=== PATIENT | female | born 2000 | race Hispanic/Latino ===

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

== ENCOUNTER 2021-01-19 15:23 | Emergency (ER) | payer OTHER ==
--- OUTSIDE RECORDS SUMMARY | 2021-01-19 15:28 | XMS REPORT | Continuity of Care Document ---
:2000 Author Organization [facility] t Address [address] [place] [address] Dr. Lua [address] [place] [id number] Care Team Providers Name Role Phone Unavailable Unavailable Unavailable Problems This patient has no known problems. Allergies, Adverse Reactions, Alerts This patient has no known allergies or adverse reactions. Medications This patient has no known medications. Procedures This patient has no known procedures. Results This patient has no known results.
[2021-01-19 18:28] LABS: Absolute Lymphocytes (CBC) 3.2 K/uL (0.7-4.9); Basophils % 0.4 % (0-1.3); Hematocrit 43.2 % (36.0-45.0); Lymphocytes % 37.6 % (15.3-44.8); MPV 7.4 fL (7.6-11.3); RBC Red Blood Cell Count 4.99 M/uL (3.86-4.86)
[2021-01-19 18:36] LABS: ALT/SGPT 31 U/L (12-78); AST/SGOT 18 U/L (15-37); Albumin 4.4 g/dL (3.4-5.0); Alkaline Phosphatase 92 U/L (45-117); BUN Blood Urea Nitrogen 11 mg/dL (7-18); Bicarbonate 28 mmol/L (21-32); Bilirubin Direct 0.1 mg/dL (0-0.2); Bilirubin Total 0.6 mg/dL (0.2-1.0); Glucose Level 79 mg/dL (74-106); Lipase 56 U/L (73-393); Potassium 3.2 mmol/L (3.5-5.1); Protein, Total 8.4 g/dL (6.4-8.2); Sodium Level 140 mmol/L (136-145)
[2021-01-19] MEDS ORDERED: ONDANSETRON 4 MG/2 ML VIAL ONE (19:20)
[2021-01-19] MEDS ORDERED: MORPHINE 4 MG/ML SYR ONE (19:20)
[2021-01-19 19:25] LABS: Urine Blood Trace-lysed (Negative); Urine Glucose Negative (Negative); Urine Protein Negative (Negative); Urine Specific Gravity 1.025 (1.005-1.030); Urine pH 6.5 (5.0-7.0)
--- NOTE | 2021-01-19 20:00 | RAD REPORT ---
EXAM DESCRIPTION: CT - Abdomen Pelvis W Contrast - 01/19/2021 7:52 pm CLINICAL HISTORY: right lower abdominal pain COMPARISON: Abdomen Pelvis W Contrast dated 06/26/2018 TECHNIQUE: Biphasic, helical CT imaging of the abdomen and pelvis was performed following 100 ml non -ionic IV contrast. No oral contrast administered. All CT scans are performed using dose optimization technique as appropriate and may include automated exposure control or mA/KV adjustment according to patient size. FINDINGS: No suspicious findings in the lung bases. The liver, spleen, and pancreas show no suspicious findings. Gallbladder and biliary tree are also wi thout suspicious finding. Symmetric renal function is seen with no hydronephrosis or suspicious renal mass. No pyelonephritis o r acute parenchymal process. No bladder abnormalities. No adrenal abnormalities. Normal size uterus i s present. IUD is well positioned in the fundus. Small ovarian cysts are present. No cyst rupture or hemorrhage findings. No adnexal abnormality suspected. No dilated bowel loops or bowel wall thickening. No evidence for appendicitis. No free air, free flui d or inflammatory stranding. No hernia, mass or bulky lymphadenopathy. Again noted is the multiple m esenteric lymph node pattern. This could be residual or recurrent when comparing with 2018. No suspicious bony findings. IMPRESSION: No appendicitis or other surgically emergent finding. No acute GI, or INSULATION [employer]ARD [employer] OPERATOR process id entifiable. Patient is again noted to have multiple small mesenteric lymph nodes. These could be residual or recu rrent when comparing with 2018.
--- NOTE | 2021-01-19 20:34 | ER ---
Nurse's Notes [facility] Name: Marie Gann Age: 20 yrs Sex: Female : 2000 Arrival Date: 01/19/2021 Time: 15:29 Bed 24 Private MD: Diagnosis: Right Flank Pain;UTI;Mesenteric Adenitis Presentation: 01/19 16:23 Chief complaint: Patient states: "I have been having really bad stomach pain that comes jd3 around the back. last time I had a smiler pain they said I have ovarian cyst, but this is way worse.". Coronavirus screen: At this time, the client does not indicate any symptoms associated with coronavirus-19. Ebola Screen: Patient negative for fever greater than or equal to 101.5 degrees Fahrenheit, and additional compatible Ebola Virus Disease symptoms. Initial Sepsis Screen: Does the patient meet any 2 criteria? No. Patient's initial sepsis screen is negative. Does the patient have a suspected source of infection? No. Patient's initial sepsis screen is negative. Risk Assessment: Do you want to hurt yourself or someone else? Patient reports no desire to harm self or others. Onset of symptoms was January 17, 2021. 16:23 Method Of Arrival: Ambulatory jd3 16:23 Acuity: AD 3 jd3 SENIOR BIOINFORMATICS SPECIALIST: 16:25 LMP N/A - control method jd3 Historical: - Allergies: 16:25 No Known Allergies; jd3 - Home Meds: 16:25 None [Active]; jd3 - PMHx: 16:25 Ovarian cyst; seasonal allergies; jd3 - PSHx: 16:25 None; jd3 - Immunization history:: Adult Immunizations up to date. - Social history:: Smoking status: Reported history of juuling and/or vaping. Screenin:50 Abuse screen: Denies threats or abuse. Denies injuries from another. Nutritional ld1 screening: No deficits noted. Tuberculosis screening: No symptoms or risk factors identified. Fall Risk None identified. Assessment: 17:50 General: Appears in no apparent distress. comfortable, Behavior is calm, cooperative, ld1 appropriate for age. 17:50 Pain: Complains of pain in posterior aspect of right lateral abdomen, anterior aspect ld1 of right lateral abdomen and right lower quadrant Pain does not radiate. Pain currently is 6 out of 10 on a pain scale. Quality of pain is described as stabbing, throbbing, Pain began 2-3 days ago. Is continuous. Neuro: Level of Consciousness is awake, alert, obeys commands, Oriented to person, place, time, situation, Appropriate for age. Cardiovascular: Capillary refill < 3 seconds Patient's skin is warm and dry. Respiratory: Airway is patent Respiratory effort is even, unlabored, Respiratory pattern is regular, symmetrical. GI: Abdomen is flat, non-distended. : Urine is clear, Reports pain in right flank(s). EENT: No signs and/or symptoms were reported regarding the EENT system. Derm: No signs and/or symptoms reported regarding the dermatologic system. Musculoskeletal: No signs and/or symptoms reported regarding the musculoskeletal system. 18:50 Reassessment: Patient appears in no apparent distress at this time. No changes from ld1 previously documented assessment. Patient is alert, oriented x 3, equal unlabored respirations, skin warm/dry/pink. 19:46 Reassessment: Patient appears in no apparent distress at this time. Patient is alert, ld1 oriented x 3, equal unlabored respirations, skin warm/dry/pink. Patient denies pain at this time. 20:59 Reassessment: Patient appears in no apparent distress at this time. No changes from ld1 previously documented assessment. Patient and/or family updated on plan of care and expected duration. Pain level reassessed. Vital Signs: 16:25 BP 113 / 87; Pulse 68; Resp 17 S; Temp 98.0(TE); Pulse Ox 99% on R/A; Weight 56.7 kg j (R); Height 5 ft. 4 in. (162.56 cm) (R); Pain 10/10; 17:50 BP 118 / 82; Pulse 70; Resp 18; Pulse Ox 100% on R/A; ld1 18:50 BP 126 / 84; Pulse 72; Resp 18; Pulse Ox 100% ; ld1 19:46 BP 124 / 80; Pulse 76; Resp 18; Pulse Ox 100% ; ld1 20:59 BP 128 / 72; Pulse 74; Resp 18; Pulse Ox 100% ; ld1 16:25 Body Mass Index 21.46 (56.70 kg, 162.56 cm) [facility] ED Course: 15:29 Patient arrived in ED. 16:25 Triage completed. jd3 16:26 Arm band placed on. jd3 17:47 Renetta Olson, RN is Primary Nurse. ld1 17:47 Constantine Brown PA is PHCP. elvis 17:47 Parul Raygoza MD is Attending Physician. [facility] 17:50 Patient has correct armband on for positive identification. Bed in low position. Call ld1 light in reach. Side rails up X2. Pulse ox on. NIBP on. Door closed. Noise minimized. Warm blanket given. 17:50 No provider procedures requiring assistance completed. Inserted saline lock: 20 gauge ld1 in right antecubital area, using aseptic technique. Blood collected. 19:53 CT Abd/Pelvis - IV Contrast Only In Process Unspecified. EDMS 21:00 IV discontinued, intact, bleeding controlled, No redness/swelling at site. ld1 Administered Medications: 19:01 Drug: morphine 4 mg Route: IVP; Site: left antecubital; ld1 19:01 Follow up: Response: No adverse reaction ld1 19:01 Drug: Zofran (Ondansetron) 4 mg Route: IVP; Site: left antecubital; ld1 19:01 Follow up: Response: No adverse reaction ld1 20:51 Drug: Ketorolac 30 mg Route: IVP; Site: right antecubital; ld1 Outcome: 20:33 Discharge ordered by . [facility] 20:59 Discharged to home ambulatory. ld1 20:59 Condition: stable 20:59 Discharge instructions given to patient, Instructed on discharge instructions, follow up and referral plans. medication usage, Demonstrated understanding of instructions, follow-up care, medications. 21:00 Patient left the ED. ld1 Signatures: Dispatcher [employer] EDMS Constantine Brown PA PA jmm Davies, Jonathon, RN RN jRenetta Chang, RANDOLPH RN ld1 Vera Jackson Corrections: (The following items were deleted from the chart) 16:26 16:25 LMP 12/01/2020 jd3 [email or web address]
--- NOTE | 2021-01-19 20:34 | EDPHYS ---
Physician Documentation [facility] Name: Marie Gann Age: 20 yrs Sex: Female : 2000 Arrival Date: 01/19/2021 Time: 15:29 Bed 24 Private MD: ED Physician Parul Raygoza HPI: 01/19 17:48 This 20 yrs old Female presents to ER via Ambulatory with complaints of Back jmm Pain - RIGHT SIDE RADIATING TO THE FRONT. 17:48 The patient presents with pain that is acute. Onset: The symptoms/episode jmm began/occurred today. The pain radiates to the abdomen. Associated signs and symptoms: Pertinent negatives: fever, vomiting. This is a 20 year old female with no chronic medical conditions that presents to the ED with complaints of right flank pain beginning earlier today. Denies fever, vomiting, diarrhea. . 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 - Social history:: Smoking status: Reported history of juuling and/or vaping. ROS: 17:48 Constitutional: Negative for fever, chills, and weight loss, Cardiovascular: Negative jmm for chest pain, palpitations, and edema, Respiratory: Negative for shortness of breath, cough, wheezing, and pleuritic chest pain. 17:48 Abdomen/GI: Positive for abdominal pain. 17:48 All other systems are negative. Exam: 17:48 Constitutional: This is a well developed, well nourished patient who is awake, alert, jmm and in no acute distress. Head/Face: atraumatic. Eyes: EOMI, no conjunctival erythema appreciated ENT: Moist Mucus Membranes Neck: Trachea midline, Supple Chest/axilla: Normal chest wall appearance and motion. Cardiovascular: Regular rate and rhythm. No edema appreciated Respiratory: Normal respirations, no respiratory distress appreciated 17:48 ENT: Moist Mucus Membranes Skin: General appearance color normal MS/ Extremity: Moves all extremities, no obvious deformities appreciated, no edema noted to the lower extremities Neuro: Awake and alert, normal gait Psych: Behavior is normal, Mood is normal, Patient is cooperative and pleasant 17:48 Abdomen/GI: Inspection: abdomen appears normal, Bowel sounds: normal, Palpation: soft, mild abdominal tenderness, in the right lower quadrant. Vital Signs: 16:25 BP 113 / 87; Pulse 68; Resp 17 S; Temp 98.0(TE); Pulse Ox 99% on R/A; Weight 56.7 kg jd3 (R); Height 5 ft. 4 in. (162.56 cm) (R); Pain 10/10; 17:50 BP 118 / 82; Pulse 70; Resp 18; Pulse Ox 100% on R/A; ld1 18:50 BP 126 / 84; Pulse 72; Resp 18; Pulse Ox 100% ; ld1 19:46 BP 124 / 80; Pulse 76; Resp 18; Pulse Ox 100% ; ld1 20:59 BP 128 / 72; Pulse 74; Resp 18; Pulse Ox 100% ; ld1 16:25 Body Mass Index 21.46 (56.70 kg, 162.56 cm) jd3 MDM: 18:[address] [facility] 20:31 Data reviewed: vital signs, nurses notes. Counseling: I had a detailed discussion with elvis the patient and/or guardian regarding: the historical points, exam findings, and any diagnostic results supporting the discharge/admit diagnosis, lab results, radiology results, the need for outpatient follow up, to return to the emergency department if symptoms worsen or persist or if there are any questions or concerns that arise at home. ED course: Patient is alert and non toxic in appearance in the ED. No signs of sepsis. CT negative. Advised to follow up with pcp and otherwise given strict return precautions. Patient understood and agrees with the plan of care. . 01/19 17:48 Order name: Basic Metabolic Panel; Complete Time: 18:49 [facility] 01/19 17:48 Order name: CBC with Diff; Complete Time: 18:49 [facility] 01/19 17:48 Order name: Hepatic Function; Complete Time: 18:49 [facility] 01/19 17:48 Order name: Lipase; Complete Time: 18:49 [facility] 01/19 19:24 Order name: Urine Dipstick-Ancillary; Complete Time: 19:33 [facility] 01/19 19:26 Order name: Urine --Ancillary (enter results) tt3 01/19 17:48 Order name: IV Saline Lock; Complete Time: 18:06 [facility] 01/19 17:48 Order name: Labs collected and sent; Complete Time: 18:06 [facility] 01/19 19:07 Order name: CT Abd/Pelvis - IV Contrast Only; Complete Time: 20:11 [facility] 01/19 19:16 Order name: Urine Dipstick-Ancillary (obtain specimen); Complete Time: 19:25 ss 01/19 19:16 Order name: Urine Test (obtain specimen); Complete Time: 19:25 ss Administered Medications: 19:01 Drug: morphine 4 mg Route: IVP; Site: left antecubital; ld1 19:01 Follow up: Response: No adverse reaction ld1 19:01 Drug: Zofran (Ondansetron) 4 mg Route: IVP; Site: left antecubital; ld1 19:01 Follow up: Response: No adverse reaction ld1 20:51 Drug: Ketorolac 30 mg Route: IVP; Site: right antecubital; ld1 Disposition: 01/19/21 20:33 Discharged to Home. Impression: Right Flank Pain, UTI, Mesenteric Adenitis. - Condition is Stable. - Discharge Instructions: Flank Pain, Adult, Mesenteric Adenitis, Pediatric, Urinary Tract Infection, Adult. - Prescriptions for Cephalexin 500 mg Oral Capsule - take 1 capsule by ORAL route every 8 hours for 10 days; 30 capsule. orphenadrine citrate 100 mg Oral Tablet Sustained Release - take 1 tablet by ORAL route 2 times per day As needed; 20 tablet. - Medication Reconciliation Form, Thank You Letter, Antibiotic Education, Prescription Opioid Use, Work release form form. - Follow up: Private Physician; When: 2 - 3 days; Reason: Recheck today's complaints, Continuance of care, Re-evaluation by your physician. Signatures: Dispatcher [employer] EDMS Constantine Brown PA PA jmm Smirch, Shelby, RN RN ss Davies, Jonathon, RN RN jd3 Dibbern, Lauren, RN RN ld1 Corrections: (The following items were deleted from the chart) 21:00 20:33 01/19/2021 20:33 Discharged to Home. Impression: Right Flank Pain; UTI; ld1 Mesenteric Adenitis. Condition is Stable. Forms are Medication Reconciliation Form, Thank You Letter, Antibiotic Education, Prescription Opioid Use. Follow up: Private Physician; When: 2 - 3 days; Reason: Recheck today's complaints, Continuance of care, Re-evaluation by your physician. elvis
[2021-01-19] MEDS ORDERED: KETOROLAC 30 MG/ML INJ ONE (21:12)
[2021-01-19 21:28] LABS: Urine Specific Gravity/Preg 1.025 (1.005-1.030)
[2021-01-19 21:30] VITALS: TEMP 98
[2021-01-19 21:31] VITALS: O2SAT 100
[2021-01-19 21:38] VITALS: BP 128/72
== END 2021-01-19 21:00 | disposition home or self-care (01) ==
LOC: ER 15:23
DX: N39.0 Urinary tract infection, site not specified (principal); I88.0 Nonspecific mesenteric lymphadenitis
CPT/HCPCS: 85025; 80048; 36415; 81025; 80076; 81003; 83690; 74177; Q9967; J2405

== ENCOUNTER 2021-02-27 06:34 | Emergency (ER) | payer OTHER ==
--- OUTSIDE RECORDS SUMMARY | 2021-02-27 06:36 | XMS REPORT | Continuity of Care Document ---
:2000 Author Organization [facility] t Address [address] [place] [address] [address] [place] [address] Care Team Providers Name Role Phone Unavailable Unavailable Unavailable Problems This patient has no known problems. Allergies, Adverse Reactions, Alerts This patient has no known allergies or adverse reactions. Medications This patient has no known medications. Procedures This patient has no known procedures. Results This patient has no known results.
[2021-02-27 07:10] LABS: Urine Blood Negative (Negative); Urine Glucose Negative (Negative); Urine Protein Trace (Negative); Urine Specific Gravity 1.015 (1.005-1.030); Urine pH >=9.0 (5.0-7.0)
[2021-02-27] MEDS ORDERED: ACETAMINOPHEN 500 MG TAB ONE (07:18)
[2021-02-27 08:13] LABS: Urine RBC <5 /HPF (NONE SEEN)
[2021-02-27 08:14] LABS: Urine Bacteria 20-50 /HPF (<20)
[2021-02-27] MEDS ORDERED: IBUPROFEN 400 MG TAB ONE (08:53)
[2021-02-27 09:04] LABS: Absolute Lymphocytes (CBC) 0.4 K/uL (0.7-4.9); Basophils % 0.2 % (0-1.3); Hematocrit 40.9 % (36.0-45.0); Lymphocytes % 4.4 % (15.3-44.8); MPV 7.2 fL (7.6-11.3)
--- NOTE | 2021-02-27 09:05 | RAD REPORT ---
EXAM DESCRIPTION: CT - Abdomen Pelvis W Contrast - 02/27/2021 8:47 am CLINICAL HISTORY: FLANK PAIN COMPARISON: Abdomen Pelvis W Contrast dated 01/19/2021 TECHNIQUE: Biphasic, helical CT imaging of the abdomen and pelvis was performed following 100 ml non -ionic IV contrast. No oral contrast given. All CT scans are performed using dose optimization technique as appropriate and may include automated exposure control or mA/KV adjustment according to patient size. FINDINGS: No suspicious findings in the lung bases. The liver, spleen, and pancreas show no suspicious findings. Gallbladder and biliary tree are also wi thout suspicious finding. Symmetric renal function is seen with no hydronephrosis or suspicious renal mass. No pyelonephritis o r acute parenchymal process. No bladder abnormalities. No adrenal abnormalities. No uterine abnormality identified. IUD is in place appearing well positioned. Both ovaries contain sm all cysts or follicles. No clearly hemorrhagic or involuting cyst identifiable. There is no abnormal blood or fluid in the cul de sac or adnexae regions. No dilated bowel loops or bowel wall thickening. No appendicitis findings. No free air, free fluid or inflammatory stranding. No hernia, mass or bulky lymphadenopathy. No suspicious bony findings. No significant or suspicious changes from comparison. IMPRESSION: Contrast enhanced CT abdomen and pelvis showing no significant or suspicious finding.
[2021-02-27 09:34] LABS: ALT/SGPT 24 U/L (12-78); AST/SGOT 22 U/L (15-37); Alkaline Phosphatase 92 U/L (45-117); BUN Blood Urea Nitrogen 7 mg/dL (7-18); Bicarbonate 23 mmol/L (21-32); Bilirubin Direct 0.1 mg/dL (0-0.2); Bilirubin Total 0.4 mg/dL (0.2-1.0); Glucose Level 93 mg/dL (74-106); Lipase 44 U/L (73-393); Potassium 3.7 mmol/L (3.5-5.1); Protein, Total 7.7 g/dL (6.4-8.2); Sodium Level 138 mmol/L (136-145)
[2021-02-27] MEDS ORDERED: CEFTRIAXONE/SWI 1gm 1 GM/10 ML SYR ONE (09:42)
[2021-02-27] MEDS ORDERED: NA CHLORIDE 0.9% 1,000 ML ONE (09:42)
[2021-02-27 09:44] LABS: Urine Specific Gravity/Preg 1.015 (1.005-1.030)
--- NOTE | 2021-02-27 09:47 | RAD REPORT ---
EXAM DESCRIPTION: RAD - Chest Single View - 02/27/2021 9:26 am CLINICAL HISTORY: Cough;Fever COMPARISON: March 2017 TECHNIQUE: AP portable chest image was obtained 02/27/2021 9:26 am . FINDINGS: No dense consolidation present. Lung markings at the left base are slightly increased but not clearly different from comparison. Left base infiltrate is unlikely. No failure or volume overloa d. Heart and vasculature are normal. No measurable pleural effusion and no pneumothorax. No acute bon y abnormality seen. No acute aortic findings suspected. IMPRESSION: No acute cardiopulmonary process.
--- NOTE | 2021-02-27 10:01 | EDPHYS ---
Physician Documentation [facility] Name: Marie Gann Age: 20 yrs Sex: Female : 2000 Arrival Date: 02/27/2021 Time: 06:35 Bed 12 Private MD: ED Physician Dino Gasca HPI: 02/27 07:00 This 20 yrs old Female presents to ER via Ambulatory with complaints of Fever, cp Nausea, Back Pain. 07:00 The patient presents with pain that is acute, with no known mechanism of injury. cp 07:00 The symptoms are located in the right mid back. cp 07:00 Onset: The symptoms/episode began/occurred yesterday. cp 07:00 The pain does not radiate. Associated signs and symptoms: Pertinent positives: fever, cp Pertinent negatives: abdominal pain, chest pain, constipation, headache, hematuria, incontinence, numbness, weakness. Patient reports close contact with family member who tested positive for COVID-19 recently. Historical: - Allergies: 06:58 No Known Allergies; bb - Home Meds: 06:58 None [Active]; bb - PMHx: 06:58 Ovarian cyst; seasonal allergies; bb - PSHx: 06:58 None; bb - Immunization history:: Adult Immunizations up to date. - Social history:: Smoking status: Patient denies any tobacco usage or history of. ROS: 07:05 Constitutional: Positive for fever. cp 07:05 ENT: Positive for sore throat. cp 07:05 Respiratory: Positive for cough. 07:05 Back: Positive for flank pain, on the right. 07:05 Eyes: Negative for injury, pain, redness, and discharge. cp 07:05 Cardiovascular: Negative for chest pain. cp 07:05 Neuro: Negative for altered mental status, headache, weakness. 07:05 All other systems are negative. Exam: 07:10 Constitutional: The patient appears in no acute distress, alert, awake, non-toxic, well cp developed, well nourished, febrile. 07:10 Head/Face: Normocephalic, atraumatic. cp 07:10 Chest/axilla: Inspection: normal. 07:10 Cardiovascular: Rate: tachycardic. 07:10 Respiratory: the patient does not display signs of respiratory distress, Respirations: normal. 07:10 Abdomen/GI: Inspection: abdomen appears normal, Palpation: abdomen is soft and non-tender, in all quadrants. 07:10 Back: pain, that is mild, of the right mid back. 07:10 Neuro: Orientation: to person, place \T\ time. Mentation: is normal. Vital Signs: 06:51 BP 127 / 73; Pulse 120; Resp 18 S; Temp 103.2; Pulse Ox 98% on R/A; Weight 63.5 kg (R); bb Height 5 ft. 4 in. (162.56 cm) (R); Pain 10/10; 10:16 BP 124 / 68; Pulse 98; Resp 16; Temp 98.3; Pulse Ox 98% on R/A; iw 06:51 Body Mass Index 24.03 (63.50 kg, 162.56 cm) bb MDM: 07:30 Differential diagnosis: bronchitis, pneumonia UTI, pyelonephritis, sepsis, COVID-19. cp 08:22 Patient medically screened. cp 09:58 Data reviewed: vital signs, nurses notes, lab test result(s), radiologic studies, CT cp scan, plain films. Counseling: I had a detailed discussion with the patient and/or guardian regarding: the historical points, exam findings, and any diagnostic results supporting the discharge/admit diagnosis, lab results, radiology results, to return to the emergency department if symptoms worsen or persist or if there are any questions or concerns that arise at home. ED course: Patient appears non-toxic and no signs of respiratory distress. Will discharge to home for continued monitoring. 02/27 06:57 Order name: Urine Microscopic Only; Complete Time: 08:23 cp 02/27 08:23 Interpretation: Normal except: UWBC 5-10; UBACT 20-50; SQEPI 5-10. cp 02/27 06:57 Order name: Influenza Screen (a \T\ B); Complete Time: 09:16 cp 02/27 06:57 Order name: Strep; Complete Time: 09:16 cp 02/27 07:10 Order name: Urine Dipstick-Ancillary; Complete Time: 07:39 EDMS 02/27 07:40 Interpretation: Normal except: UKET Trace; UPROT Trace. cp 02/27 08:16 Order name: Urine Culture EDMS 02/27 08:23 Order name: Basic Metabolic Panel; Complete Time: 09:36 cp 08/02 09:36 Interpretation: Normal except: CL 108. cp 08/02 08:23 Order name: CBC with Diff cp 08/ 09:16 Interpretation: Normal except: MPV 7.2; DARIO% 86.3; LYM% 4.4; LYMA 0.4. cp 08/02 08:23 Order name: Hepatic Function; Complete Time: 09:36 cp 08/02 09:36 Interpretation: Normal except: GLOB 3.7. cp 08/ 08:23 Order name: Lipase; Complete Time: 09:36 cp 08/02 09:36 Interpretation: Abnormal: LIP 44. cp 08/ 08:38 Order name: Urine --Ancillary (enter results) bd 08 08:38 Order name: Urine --Ancillary; Complete Time: 09:57 EDMS 08 08:43 Order name: Throat Culture EDMS 02/27 09:06 Order name: SARS-COV-2 RT PCR; Complete Time: 09:16 EDMS 02/27 09:16 Interpretation: Abnormal: SARSCOV2 RT PCR POSITIVE. cp 08/ 06:57 Order name: Urine Dipstick-Ancillary (obtain specimen); Complete Time: 08:00 cp 08/ 06:57 Order name: Urine Test (obtain specimen); Complete Time: 20:01 cp / 08:23 Order name: IV Saline Lock; Complete Time: 08:39 cp / 08:23 Order name: Labs collected and sent; Complete Time: 08:39 cp / 08:23 Order name: CT Abd/Pelvis - IV Contrast Only; Complete Time: 09:16 cp 02/27 08:25 Order name: XRAY Chest (1 view); Complete Time: 09:57 cp 02/27 09:07 Order name: CBC Smear Scan EDMS / 09:21 Order name: PO challenge; Complete Time: 19:58 cp 02/27 09:22 Order name: CREATININE WHOLE BLOOD; Complete Time: 09:36 EDMS 02/27 09:58 Order name: Vital Signs: please update to include temp; Complete Time: 19:58 cp Administered Medications: 07:01 Drug: Tylenol 1000 mg Route: PO; bb 08:00 Follow up: Response: No adverse reaction iw 08:37 Drug: Ibuprofen 800 mg Route: PO; iw 09:00 Follow up: Response: No adverse reaction iw 09:24 Drug: NS 0.9% 1000 ml Route: IV; Rate: 1 bolus; Site: right antecubital; iw 10:20 Follow up: IV Status: Completed infusion iw 09:24 Drug: Rocephin (cefTRIAXone) 1 grams Route: IV; Rate: calculated rate; Site: right iw antecubital; 09:30 Follow up: IV Status: Completed infusion iw Disposition Summary: 02/27/21 10:00 Discharge Ordered Location: Home cp Problem: new cp Symptoms: have improved cp Condition: Stable cp Diagnosis - UTI/ Urinary tract infection, site not specified cp - SARS-associated coronavirus as the cause of diseases classified elsewhere cp Followup: cp - With: Private Physician - When: 2 - 3 days - Reason: Worsening of condition Discharge Instructions: - Discharge Summary Sheet cp - Urinary Tract Infection, Adult cp - COVID-19 cp - Things to Know about the COVID-19 Pandemic - [facility] cp - 10 Things You Can Do to Manage Your COVID-19 Symptoms at Home - [facility] cp - COVID-19: Quarantine vs. Isolation - [facility] cp - Prevent the Spread of COVID-19 if You Are Sick - [facility] cp Forms: - Medication Reconciliation Form cp - Thank You Letter cp - Antibiotic Education cp - Work release form iw - Prescription Opioid Use cp Prescriptions: - Augmentin 875-125 mg Oral Tablet - take 1 tablet by ORAL route every 12 hours for 10 days; 20 tablet; Refills: 0, cp Product Selection Permitted - Tessalon Perles 100 mg Oral Capsule - take 1 capsule by ORAL route every 8 hours As needed; 15 capsule; Refills: 0, cp Product Selection Permitted - Ibuprofen 600 mg Oral Tablet - take 1 tablet by ORAL route every 8 hours As needed take with food; 30 tablet; cp Refills: 0, Product Selection Permitted Addendum: 03/01/2021 19:06 Co-signature as Attending Physician, Dino dumont Signatures: Dispatcher [employer] EDDino Lazar MD MD pkl Ballard, Brenda RN RN Magaly Flores RN RN iw Mike Bell PA PA cp Corrections: (The following items were deleted from the chart) 02/27 07:50 06:58 CORONAVIRUS+LAB.BRZ ordered. EDMI EDMS
--- NOTE | 2021-02-27 10:01 | ER ---
Nurse's Notes [facility] Name: Marie Gann Age: 20 yrs Sex: Female : 2000 Arrival Date: 02/27/2021 Time: 06:35 Bed 12 Private MD: Diagnosis: UTI/ Urinary tract infection, site not specified;SARS-associated coronavirus as the cause of diseases classified elsewhere Presentation: 02/27 06:51 Chief complaint: Patient states: fever, chills, nausea, vomiting, pain on right side of bb back similar to last visit with cyst on kidney. Coronavirus screen: chills, fever, vomiting. Client presents with at least one sign or symptom that may indicate coronavirus-19. Standard/surgical mask placed on the client. Ebola Screen: No symptoms or risks identified at this time. Initial Sepsis Screen: Does the patient meet any 2 criteria? Temp <36.0*C (96.8*F)) or > 38.3*C (100.9*F). HR > 90 bpm. Yes Does the patient have a suspected source of infection? Yes: Other: unknown. Risk Assessment: Do you want to hurt yourself or someone else? Patient reports no desire to harm self or others. Onset of symptoms was February 26, 2021. 06:51 Method Of Arrival: Ambulatory 06:51 Acuity: AD 3 bb Triage Assessment: 06:58 General: Appears in no apparent distress. uncomfortable, Behavior is calm, cooperative. bb Pain: Complains of pain in back Pain currently is 10 out of 10 on a pain scale. Neuro: Level of Consciousness is awake, alert, obeys commands, Oriented to person, place, time, situation. Cardiovascular: Capillary refill < 3 seconds Patient's skin is warm and dry. Respiratory: Respiratory effort is even, unlabored, Respiratory pattern is regular. GI: Abdomen is non-distended, Reports nausea, vomiting. Derm: Skin is pink, warm \T\ dry. Musculoskeletal: Circulation, motion, and sensation intact. Historical: - Allergies: 06:58 No Known Allergies; bb - Home Meds: 06:58 None [Active]; bb - PMHx: 06:58 Ovarian cyst; seasonal allergies; bb - PSHx: 06:58 None; bb - Immunization history:: Adult Immunizations up to date. - Social history:: Smoking status: Patient denies any tobacco usage or history of. Screenin:00 Abuse screen: Denies threats or abuse. Denies injuries from another. Nutritional iw screening: No deficits noted. Tuberculosis screening: No symptoms or risk factors identified. Fall Risk IV access (20 points). Assessment: 08:30 General: Appears in no apparent distress. uncomfortable, Behavior is calm, cooperative. iw General: Reports fever for feeling ill for fatigue for. Neuro: Level of Consciousness is awake, alert, obeys commands, Oriented to person, place, time, situation, Moves all extremities. Full function. Respiratory: Reports cough that is Respiratory effort is even, unlabored, Respiratory pattern is regular, symmetrical. GI: Abdomen is flat, non-distended. Musculoskeletal: Range of motion: intact in all extremities. 10:16 Reassessment: Patient appears in no apparent distress at this time. Patient and/or iw family updated on plan of care and expected duration. Pain level reassessed. Patient is alert, oriented x 3, equal unlabored respirations, skin warm/dry/pink. Patient states feeling better. Patient states symptoms have improved. Vital Signs: 06:51 BP 127 / 73; Pulse 120; Resp 18 S; Temp 103.2; Pulse Ox 98% on R/A; Weight 63.5 kg (R); bb Height 5 ft. 4 in. (162.56 cm) (R); Pain 10/10; 10:16 BP 124 / 68; Pulse 98; Resp 16; Temp 98.3; Pulse Ox 98% on R/A; iw 06:51 Body Mass Index 24.03 (63.50 kg, 162.56 cm) bb ED Course: 06:35 Patient arrived in ED. wm 06:56 Mike Bell PA is PHCP. cp 06:56 Dino Gasca MD is Attending Physician. cp 06:58 Triage completed. bb 06:58 Arm band placed on Patient placed in waiting room, Patient notified of wait time. Labs bb ordered per protocol. 07:01 COVID swab sent to lab. Flu and/or RSV swab sent to lab. Strep swab sent to lab. bb 08:20 Magaly Leigh, RN is Primary Nurse. iw 08:39 Initial lab(s) drawn, by me, sent to lab. Inserted saline lock: 20 gauge in right em1 antecubital area, using aseptic technique. Blood collected. 08:47 CT Abd/Pelvis - IV Contrast Only In Process Unspecified. EDMS 09:26 XRAY Chest (1 view) In Process Unspecified. EDMS 10:16 Patient has correct armband on for positive identification. iw 10:16 IV discontinued, intact, bleeding controlled, No redness/swelling at site. Pressure iw dressing applied. 10:18 No provider procedures requiring assistance completed. iw Administered Medications: 07:01 Drug: Tylenol 1000 mg Route: PO; bb 08:00 Follow up: Response: No adverse reaction iw 08:37 Drug: Ibuprofen 800 mg Route: PO; iw 09:00 Follow up: Response: No adverse reaction iw 09:24 Drug: NS 0.9% 1000 ml Route: IV; Rate: 1 bolus; Site: right antecubital; iw 10:20 Follow up: IV Status: Completed infusion iw 09:24 Drug: Rocephin (cefTRIAXone) 1 grams Route: IV; Rate: calculated rate; Site: right iw antecubital; 09:30 Follow up: IV Status: Completed infusion iw Outcome: 10:00 Discharge ordered by . nevin 10:18 Discharged to home ambulatory. iw 10:18 Condition: good 10:18 Discharge instructions given to patient, Instructed on discharge instructions, follow up and referral plans. medication usage, Demonstrated understanding of instructions, follow-up care, medications, Prescriptions given X 4. 10:19 Patient left the ED. iw Signatures: Dispatcher [employer] EDMS Leticia Hassan RN RN bb Williams, Irene, RN RN iw Onur Tavares [facility] Mike Bell PA PA cp Marsh, Wendy
[2021-02-27 10:15] LABS: Blood Morphology Comment NOT SEEN (NOT SEEN); Platelet Estimate ADEQ; White Blood Cell Scan OK (OK)
[2021-02-27 10:29] VITALS: O2SAT 98
[2021-02-27 10:30] VITALS: BP 124/68; TEMP 98.3
== END 2021-02-27 10:19 | disposition home or self-care (01) ==
LOC: ER 06:34
DX: U07.1 COVID-19 (principal); N39.0 Urinary tract infection, site not specified
CPT/HCPCS: 87070; 87088; 85025; 87086; 80048; 36415; 81025; 82565; 80076; 87081; 83690; 87804 ×2; 74177; 71045; U0003; Q9967; J0696; J7030; 81003; 81015

== ENCOUNTER 2021-05-29 21:41 | Emergency (ER) | payer OTHER ==
[2021-05-30] MEDS ORDERED: ACETAMINOPHEN 500 MG TAB ONE (00:01)
[2021-05-30] MEDS ORDERED: IBUPROFEN 200 MG TAB PO ONE (00:01)
[2021-05-30] MEDS ORDERED: IBUPROFEN 400 MG TAB ONE (00:01)
--- NOTE | 2021-05-30 00:31 | ER ---
Nurse's Notes [facility] Name: Marie Gann Age: 21 yrs Sex: Female : 2000 Arrival Date: 05/29/2021 Time: 21:45 Bed 26 Private MD: Diagnosis: Pain in right wrist-from fall Presentation: 05/29 22:41 Chief complaint: Patient states: tripped and fell yesterday, hurt R wrist denies any em other injuries. Coronavirus screen: Vaccine status: Patient reports receiving the 2nd dose of the covid vaccine. Ebola Screen: Patient negative for fever greater than or equal to 101.5 degrees Fahrenheit, and additional compatible Ebola Virus Disease symptoms Patient denies exposure to infectious person. Patient denies travel to an Ebola-affected area in the 21 days before illness onset. No symptoms or risks identified at this time. Initial Sepsis Screen: Does the patient meet any 2 criteria? No. Patient's initial sepsis screen is negative. Does the patient have a suspected source of infection? No. Patient's initial sepsis screen is negative. Risk Assessment: Do you want to hurt yourself or someone else? Patient reports no desire to harm self or others. Onset of symptoms was May 29, 2021. 22:41 Method Of Arrival: Ambulatory em 22:41 Acuity: AD 4 em Triage Assessment: 05/30 04:37 Injury Description: Reports falling on right wrist with tenderness/ intermittent pain cc4 right wrist. 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 - Social history:: Smoking status: Patient denies any tobacco usage or history of. Screenin:06 Abuse screen: Denies threats or abuse. Denies injuries from another. Nutritional ld1 screening: No deficits noted. Tuberculosis screening: No symptoms or risk factors identified. Fall Risk None identified. Assessment: 23:06 General: Appears in no apparent distress. comfortable, Behavior is calm, cooperative, ld1 appropriate for age. Pain: Complains of pain in right wrist Pain does not radiate. Pain currently is 7 out of 10 on a pain scale. Quality of pain is described as throbbing, Pain began 1 hour ago. Is continuous. Neuro: Level of Consciousness is awake, alert, obeys commands, Oriented to person, place, time, situation. Cardiovascular: Capillary refill < 3 seconds Patient's skin is warm and dry. Respiratory: Airway is patent Respiratory effort is even, unlabored, Respiratory pattern is regular, symmetrical. GI: Abdomen is flat, non-distended. : No signs and/or symptoms were reported regarding the genitourinary system. EENT: No signs and/or symptoms were reported regarding the EENT system. Derm: No signs and/or symptoms reported regarding the dermatologic system. Musculoskeletal: Swelling present in right wrist. 05/30 00:30 Reassessment: Patient appears in no apparent distress at this time. reports decreased cc4 discomfort right wrist; velcro splint applied right wrist, sadi. well. Patient states feeling better. Vital Signs: 05/29 22:41 BP 113 / 82; Pulse 84; Resp 16; Temp 98.0; Pulse Ox 99% on R/A; Weight 56.7 kg; Height em 5 ft. 4 in. (162.56 cm); 23:06 BP 118 / 78; Pulse 79; Resp 18; Pulse Ox 100% on R/A; ld1 11 00:30 BP 122 / 72; Pulse 78; Resp 20; Temp 98.4(O); Pulse Ox 100% on R/A; cc4 05/29 22:41 Body Mass Index 21.46 (56.70 kg, 162.56 cm) em ED Course: 05/29 21:45 Patient arrived in ED. cf2 22:04 Mike Bell PA is PHCP. cp 22:04 Parul Raygoza MD is Attending Physician. cp 22:42 Triage completed. em 22:42 Arm band placed on. em 23:06 Renetta Olson, RANDOLPH is Primary Nurse. ld1 23:06 Patient has correct armband on for positive identification. Bed in low position. Call ld1 light in reach. Side rails up X 1. Pulse ox on. NIBP on. Door closed. Noise minimized. Warm blanket given. 23:06 No provider procedures requiring assistance completed. ld1 05/30 00:16 XRAY Wrist RIGHT 3 view Sent. cs9 00:30 Patient did not have IV access during this emergency room visit. cc4 00:38 XRAY Wrist RIGHT 3 view In Process Unspecified. EDMS Administered Medications: 05/29 23:08 Drug: Tylenol 1000 mg Route: PO; ld1 23:08 Follow up: Response: No adverse reaction ld1 05/30 00:30 Follow up: Response: No adverse reaction; Pain is decreased cc4 05/29 23:08 Drug: Ibuprofen 600 mg Route: PO; ld1 23:08 Follow up: Response: No adverse reaction ld1 05/30 00:30 Follow up: Response: No adverse reaction; Pain is decreased cc4 Outcome: 00:30 Discharge ordered by MD. cp 00:30 Discharged to home ambulatory, with friend. cc4 00:30 Condition: improved 00:30 Discharge instructions given to patient, Instructed on discharge instructions, follow up and referral plans. Demonstrated understanding of instructions, follow-up care, medications, Prescriptions given X 1. 01:26 Patient left the ED. cc4 Signatures: Dispatcher [employer] EDJani Ochoa, RN RN Mike Caicedo PA PA Rachel Moreira cf2 Renetta Olson RN RN ld1 Silvina Tolliver RN RN cc4 Denise Dhillon cs9
--- NOTE | 2021-05-30 00:31 | EDPHYS ---
Physician Documentation [facility] Name: Marie Gann Age: 21 yrs Sex: Female : 2000 Arrival Date: 05/29/2021 Time: 21:45 Bed 26 Private MD: ED Physician Parul Raygoza HPI: 05/29 22:55 This 21 yrs old Female presents to ER via Ambulatory with complaints of Wrist cp Injury. 22:55 The patient or guardian reports injury, pain. The complaints affect the right wrist cp diffusely. Context: resulted from a fall, while walking. 22:55 Onset: The symptoms/episode began/occurred yesterday. cp 22:55 Associated signs and symptoms: Pertinent negatives: cyanosis distally, numbness cp distally. 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 - Social history:: Smoking status: Patient denies any tobacco usage or history of. ROS: 23:00 MS/extremity: Positive for pain, swelling, tenderness, of the right wrist, Negative for cp decreased range of motion, deformity. 23:00 Constitutional: Negative for fever. cp 23:00 Neck: Negative for pain with movement, pain at rest. 23:00 Cardiovascular: Negative for chest pain. 23:00 Respiratory: Negative for cough, shortness of breath. 23:00 Abdomen/GI: Negative for abdominal pain, nausea, vomiting, and diarrhea. 23:00 Back: Negative for pain at rest, pain with movement. 23:00 Skin: Negative for rash. 23:00 Neuro: Negative for numbness, tingling, weakness. 23:00 All other systems are negative. Exam: 23:10 Constitutional: The patient appears in no acute distress, alert, awake, non-toxic, well cp developed, well nourished. 23:10 Head/Face: Normocephalic, atraumatic. cp 23:10 Chest/axilla: Inspection: normal. 23:10 Cardiovascular: Rate: normal. 23:10 Respiratory: the patient does not display signs of respiratory distress, Respirations: normal, no use of accessory muscles, labored breathing, is not present. 23:10 Musculoskeletal/extremity: Extremities: grossly normal except: noted in the right wrist: pain, swelling, tenderness, There is no evidence of decreased ROM, deformity, ROM: limited passive range of motion due to pain, in the right wrist, Perfusion: the extremity is normally perfused throughout, the right hand Sensation intact. Vital Signs: 22:41 BP 113 / 82; Pulse 84; Resp 16; Temp 98.0; Pulse Ox 99% on R/A; Weight 56.7 kg; Height em 5 ft. 4 in. (162.56 cm); 23:06 BP 118 / 78; Pulse 79; Resp 18; Pulse Ox 100% on R/A; ld1 05/30 00:30 BP 122 / 72; Pulse 78; Resp 20; Temp 98.4(O); Pulse Ox 100% on R/A; cc4 05/29 22:41 Body Mass Index 21.46 (56.70 kg, 162.56 cm) em Procedures: 00:35 Splinting: Splint applied to right wrist using velcro wrist splint. applied by nurse. cp Patient tolerated well. MDM: 05/29 22:45 Patient medically screened. cp 23:48 Test interpretation: by ED physician or midlevel provider: xrays of right wrist cp negative for fracture. 05/30 00:30 Data reviewed: vital signs, nurses notes, radiologic studies, plain films. cp 00:30 Counseling: I had a detailed discussion with the patient and/or guardian regarding: the cp historical points, exam findings, and any diagnostic results supporting the discharge/admit diagnosis, radiology results, to return to the emergency department if symptoms worsen or persist or if there are any questions or concerns that arise at home. Response to treatment: the patient's symptoms have markedly improved after treatment, and as a result, I will discharge patient. 05/29 22:51 Order name: XRAY Wrist RIGHT 3 view cp 05/30 01:17 Order name: Splint - Wrist; Complete Time: 04:26 cp Administered Medications: 05/29 23:08 Drug: Tylenol 1000 mg Route: PO; ld1 23:08 Follow up: Response: No adverse reaction ld1 05/30 00:30 Follow up: Response: No adverse reaction; Pain is decreased cc4 05/29 23:08 Drug: Ibuprofen 600 mg Route: PO; ld1 23:08 Follow up: Response: No adverse reaction ld1 05/30 00:30 Follow up: Response: No adverse reaction; Pain is decreased cc4 Disposition: 00:45 Chart complete. cp Disposition Summary: 05/30/21 00:30 Discharge Ordered Location: Home cp Problem: new cp Symptoms: have improved cp Condition: Stable cp Diagnosis - Pain in right wrist - from fall cp Followup: cp - With: Private Physician - When: 1 week - Reason: pain continues Discharge Instructions: - Discharge Summary Sheet cp - Wrist Pain, Adult cp Forms: - Medication Reconciliation Form cp - Thank You Letter cp - Antibiotic Education cp - Prescription Opioid Use cp Prescriptions: - Ibuprofen 600 mg Oral Tablet - take 1 tablet by ORAL route every 6 hours As needed take with food; 30 tablet; cp Refills: 0, Product Selection Permitted Addendum: 06/12/2021 05:20 Co-signature as Attending Physician, Parul tenorio a2 Signatures: Dispatcher [employer] Jani Mike RN RN Mike Caicedo PA PA cp Parul Raygoza MD MD ma2 Renetta Olson RN RN ld1 Silvina Tolliver RN cc4 Corrections: (The following items were deleted from the chart) 05/30 00:08 05/29 22:55 Context: resulted from a fall, while running, cp cp
[2021-05-30 01:40] VITALS: TEMP 98
[2021-05-30 01:42] VITALS: BP 118/78; O2SAT 100
--- NOTE | 2021-05-30 07:21 | RAD REPORT ---
EXAM DESCRIPTION: RAD - Wrist Right 3 View - 05/30/2021 12:36 am CLINICAL HISTORY: PAIN COMPARISON: No comparisons FINDINGS: No acute fracture. No malalignment. No significant focal degenerative changes. IMPRESSION: No acute osseous abnormality involving the right wrist.
--- OUTSIDE RECORDS SUMMARY | 2021-06-10 06:59 | XMS REPORT | Continuity of Care Document ---
:2000 Author Organization [facility] t Address [address] [place] [address] [place] [id number] Care Team Providers Name Role Phone Unavailable Unavailable Unavailable Problems This patient has no known problems. Allergies, Adverse Reactions, Alerts This patient has no known allergies or adverse reactions. Medications This patient has no known medications. Procedures This patient has no known procedures. Results This patient has no known results.
== END 2021-05-30 01:26 | disposition home or self-care (01) ==
LOC: ER 21:41
DX: M25.531 Pain in right wrist (principal); W19.XXXA Unspecified fall, initial encounter; Y93.01 Activity, walking, marching and hiking
CPT/HCPCS: 99284

== ENCOUNTER 2022-05-18 22:05 | Emergency (ER) | payer OTHER ==
--- OUTSIDE RECORDS SUMMARY | 2022-05-18 22:09 | XMS REPORT | Continuity of Care Document ---
:2000 Author Organization [facility] t Address [address] [place] [address] Care Team Providers Name Role Phone IrwinDianarebeca Primary Care Physician Mona Garcia DO Attending Clinician MONA GARCIA Attending Clinician Unavailable TRACE SCHMID Attending Clinician Unavailable Aster Cardoso MD Attending Clinician ASTER CARDOSO Attending Clinician Unavailable Trace Valdes Attending Clinician Doctor Unassigned, [place] Attending Clinician Unavailable Payers Payer Name Policy Type Policy Number Effective Date Expiration Date S ource Problems Condition Condition Condition Status Onset Resolution Last Treating Co mments Source Name Details Category Date Date Treatment Clinician Date Screening Screening Disease Active Uni vers examinatio examinatio 6-14 it y of n [place] STD [place] ([place] ([place] 00 Medi murali transmitte transmitte Br anch d disease) d disease) IUD IUD Disease Active Univers (intrauter (intrauter 6-14 it y of ine ine 00:00: [place] device) in device) in [address] Branch Low TSH Low TSH Disease Active Univers level level 5-14 ity of 00:00: [place] 00 Medical Branch Allergies, Adverse Reactions, Alerts Allergy Allergy Status Severity Reaction(s) Onset Inactive Treating Comm ents Source Name Type Date Date Clinician NO KNOWN Drug Active Univers ALLERGIE Class ity of S [facility] Social History Social Habit Start Date Stop Date Quantity Comments Source History SDOH University o f Alcohol Frequency [place] M edical [facility] History SDOH University o f Alcohol Std [place] Medical Drinks Branch History SDME University o f Alcohol Binge [facility] al [place] [facility] Exposure to 2022-05-08 2022-05-18 [facility]00 [facility] [place] [facility] (event) [place] Alcohol intake 2022-05-18 2022-05-18 .43 /d [facility] 00:00:00 00:00:00 [facility] Tobacco use and 2022-01-09 2022-01-09 Smokeless tobacco Un iversity of exposure 00:00:00 00:00:00 non-user [facility] Alcohol Comment 2022-01-09 2022-01-09 socially Universit y of 00:00:00 00:00:00 [facility] Sex Assigned At [birth year] Universit y of 00:00:00 00:00:00 [facility] Smoking Status Start Date Stop Date Source Never smoked tobacco [facility] Medications Ordered Filled Start Stop Current Ordering Indication Dosage Frequency Signature Comments Components Source Medication Medication Date Date Medication? Clinician (SIG) Name Name ondansetron 2021-07 4mg 4 mg, [facility] ers (ZOFRAN-ODT 0-21 10-21 Oral, ity of ) 15:30: 14:23 ONCE, 1 [place] disintegrat 00 :00 dose, On Medi murali ing tablet Fri Branch 4 mg 05/18/22 at 1030, Routine ondansetron 2021-07 Yes [id number] 4mg Take 1 Univers 4 mg 0-21 tablet by ity of disintegrat 00:00: mouth [place] ing tablet 00 every 8 Medica l (eight) Branch hours as needed for Nausea and Vomiting (N/V). norgestimat Yes [id number] 1{tbl} Take 1 Univers e-ethinyl 6-16 tablet by ity o f estradioL 00:00: mouth [place] 0.25-35 00 daily. Medical mg-mcg per Branch tablet norgestimat Yes [id number] 1{tbl} Take 1 Univers e-ethinyl 6-16 tablet by ity o f estradioL 00:00: mouth [place] 0.25-35 00 daily. Medical mg-mcg per Branch tablet Immunizations Ordered Filled Immunization Date Status Comments Sourc e Immunization Name Name [facility] 2018-10-20 Completed University of 00:00:00 [facility] [place] [facility] 2018-10-20 Completed University of 00:00:00 [facility] [place] [facility] 2017-04-10 Completed University of 00:00:00 [facility] [place] [facility] 2017-04-10 Completed University of 00:00:00 [facility] [place] [facility] 2016-07-16 Completed University of 00:00:00 [facility] [place] [facility] 2016-07-16 Completed University of 00:00:00 [facility] Vital Signs Vital Name Observation Time Observation Value Comments Source Systolic blood 2022-05-18 14:17:00 106 mm[Hg] Univer sity of pressure [facility] Diastolic blood 2022-05-18 14:17:00 80 mm[Hg] Unive rsity of [facility] Heart rate 2022-05-18 14:17:00 78 /min [facility] Body temperature 2022-05-18 14:17:00 36.67 Paige [facility] 2022-05-18 14:17:00 18 /min [facility] Body height 2022-05-18 14:17:00 160 cm [facility] Body weight 2022-05-18 14:17:00 56.7 kg [facility] BMI 2022-05-18 14:17:00 22.14 kg/m2 [facility] Oxygen saturation in 2022-05-18 14:17:00 99 /min [facility] Arterial blood by [facility] Pulse oximetry Branch Systolic blood 2022-01-11 14:20:00 109 mm[Hg] Univer sity of pressure [facility] Diastolic blood 2022-01-11 14:20:00 71 mm[Hg] Unive rsity of [facility] Heart rate 2022-01-11 14:20:00 76 /[facility] 2022-01-11 14:20:00 36.89 Paige [facility] Respiratory rate 2022-01-11 14:20:00 18 /min [facility] Body height 2022-01-11 14:20:00 162.6 cm [facility] Body weight 2022-01-11 14:20:00 61.236 kg [facility] BMI 2022-01-11 14:20:00 23.17 kg/m2 [facility] Procedures Procedure Date / Time Performed Performing Clinician Sourc e POCT TEST 2022-05-18 14:24:00 Mona Garcia [facility] CONSENT/REFUSAL FOR 2022-05-18 14:12:43 Doctor Unassigned, No Un [facility] DIAGNOSIS AND Name [facility] TREATMENT Plan of Care Planned Activity Planned Date Details Comments Source Encounters Start End Encounter Admission Attending Care Care Encounter Source Date/Time Date/Time Type Type Clinicians Facility Department ID 2022-05-18 2022-05-18 Emergency Jose [facility] [id number] Univers 09:18:00 09:56:00 Mona RODRIGUEZ [id number] ity of [facility] [id number] [facility] [id number] [facility] 084 [place] 2022-05-18 2022-05-18 Emergency X JOSE [facility] ERT [id number] Univers 09:18:00 09:56:00 MONA apodaca [facility] 2022-02-12 2022-02-12 Outpatient Deondre SCHMID [facility] [id number] Univers 13:15:00 13:15:00 TRACE [place]odaca o f [facility] 2022-01-11 2022-01-11 Office Aster Cardoso [facility] [id number] Univers 09:00:00 09:43:54 Visit ZANE [id number] it y of WOMEN'S [id number] [facility] [id number] [facility] 134 Branch 2022-01-11 2022-01-11 Outpatient R ASTER CARDOSO [facility] [id number] Univers 09:00:00 09:43:54 ity [facility] 2022-01-11 2022-01-11 Outpatient R ASTER CARDOSO [facility] [id number] Univers 09:00:00 09:00:00 ity of [facility] 2022-01-10 2022-01-10 Outpatient Deondre SCHMID [facility] [id number] Univers 13:15:00 13:15:00 TRACE saeed [place] [facility] 2022-01-10 2022-01-10 Outpatient Deondre SCHMID [facility] [id number] Univers 13:15:00 13:15:00 TRACE saeed [place] [facility] 2022-01-09 2022-01-[address] [facility] [id number] Univers 14:00:00 14:30:32 [facility] Deondre TRADER [id number] ity [facility] [id number] Saúl as MATERNAL [id number] Med ical & CHILD [address] [place] [address] 2022-01-09 2022-01-09 Outpatient Deondre SCHMID [facility] [id number] Univers 14:00:00 14:30:32 WENDYGEMINI saeed [facility] 2022-01-09 2022-01-09 Outpatient Doendre SCHMID [facility] [id number] Univers 14:00:00 14:30:32 WENDYGEMINI jeniffer [facility] 2022-01-09 2022-01-09 Orders Doctor CELINE [id number] Univers 00:00:00 00:00:00 Only Unassigned, JOSÉ MIGUEL [id number] ity of [place] [facility] [id number] Saúl as [id number] [address] 2021-11-14 2021-11-14 Outpatient FELTON LAGUNAN [facility] [id number] Univers 09:30:00 09:30:00 [facility] Results Test Description Test Time Test Comments Results Result Comments Source POCT TEST 2022-05-18 14:24:00 Test Item Value Reference Range Interpretation Comme nts POCT PREG (test code = 1605) negative On board controls acceptable with C Line (test code = 3574) present POCT PREG LOT # (test code = 3575) [id number] POCT PREG TEST DATE (test code = 3576) 09-26-2023 Lab Interpretation (test code = 40675-7) [facility]
[2022-05-18 22:57] LABS: Urine Blood Trace-intact (Negative); Urine Glucose Negative (Negative); Urine Protein 1+ (Negative); Urine pH 5.5 (5.0-7.0)
[2022-05-18] MEDS ORDERED: KETOROLAC 30 MG/ML INJ ONE (23:12)
[2022-05-18] MEDS ORDERED: ONDANSETRON 4 MG/2 ML VIAL ONE (23:12)
[2022-05-18] MEDS ORDERED: FAMOTIDINE 20 MG/2 ML VIAL IV ONE (23:13)
[2022-05-18] MEDS ORDERED: NA CHLORIDE 0.9% 1,000 ML ONE (23:13)
[2022-05-18 23:19] LABS: Absolute Lymphocytes (CBC) 2.5 K/uL (0.7-4.9); Hematocrit 37.9 % (36.0-45.0); MCV 86.9 fL (80-100); MPV 6.6 fL (7.6-11.3); RBC Red Blood Cell Count 4.36 M/uL (3.86-4.86)
[2022-05-18 23:36] LABS: Albumin 3.5 g/dL (3.4-5.0); Bilirubin Total 0.7 mg/dL (0.2-1.0); Potassium 3.1 mmol/L (3.5-5.1); Protein, Total 6.8 g/dL (6.4-8.2)
[2022-05-19] MEDS ORDERED: POTASSIUM CL SA 10 MEQ TAB PO ONE
--- NOTE | 2022-05-19 | ER ---
Nurse's Notes [facility] [place] Name: Marie Gann Age: 22 yrs Sex: Female : 2000 Arrival Date: 05/18/2022 Time: 22:16 Bed 18 Private MD: Diagnosis: Noninfective gastroenteritis and colitis, unspecified Presentation: 05/18 22:25 Chief complaint: Patient states: Pt reports bilateral lower abdominal pain and kb3 suprapubic pain with associated vomiting and diarrhea since last night. Was seen at [facility] this morning and diagnosed with possible food poisoning and given RX for Zofran. PT reports no relief of symptoms. Coronavirus screen: Vaccine status: Patient reports being unvaccinated. Client denies travel out of the [place] in the last 14 days. Ebola Screen: Patient negative for fever greater than or equal to 101.5 degrees Fahrenheit, and additional compatible Ebola Virus Disease symptoms Patient denies exposure to infectious person. Patient denies travel to an Ebola-affected area in the 21 days before illness onset. No symptoms or risks identified at this time. Initial Sepsis Screen: Does the patient meet any 2 criteria? No. Patient's initial sepsis screen is negative. Does the patient have a suspected source of infection? No. Patient's initial sepsis screen is negative. Risk Assessment: Do you want to hurt yourself or someone else? Patient reports no desire to harm self or others. Onset of symptoms was May 17, 2022 at 23:00. 22:25 Method Of Arrival: Ambulatory kb3 22:25 Acuity: AD 3 kb3 Triage Assessment: 22:28 General: Appears in no apparent distress. Behavior is calm, cooperative. Pain: kb3 Complains of pain in suprapubic area, right lower quadrant and left lower quadrant Pain does not radiate. Pain currently is 9 out of 10 on a pain scale. Quality of pain is described as sharp, stabbing, Pain began 1 day ago. Is intermittent. GI: Reports lower abdominal pain, diarrhea, nausea, vomiting. 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 - Social history:: Smoking status: Patient denies any tobacco usage or history of. Screenin:18 Abuse screen: Denies threats or abuse. Denies injuries from another. Nutritional lg3 screening: No deficits noted. Tuberculosis screening: No symptoms or risk factors identified. Fall Risk None identified. Assessment: 23:18 General: Appears in no apparent distress. comfortable, Behavior is calm, cooperative. lg3 Pain: Complains of pain in abdomen and suprapubic area Quality of pain is described as crampy, pressure. Neuro: No deficits noted. Level of Consciousness is awake, alert, obeys commands, Oriented to person, place, time, situation. Cardiovascular: No deficits noted. Denies chest pain, shortness of breath, Capillary refill < 3 seconds Clubbing of nail beds is absent JVD is absent Patient's skin is warm and dry. Respiratory: No deficits noted. Reports cough that is non-productive, Airway is patent Trachea midline Respiratory effort is even, unlabored, Respiratory pattern is regular, symmetrical, Breath sounds are clear bilaterally. GI: Abdomen is flat, non-distended, Bowel sounds present X 4 quads. Abd is soft X 4 quads Abdomen is tender to palpation in right lower quadrant and left lower quadrant Reports lower abdominal pain, cramping, diarrhea, nausea, vomiting. : No deficits noted. No signs and/or symptoms were reported regarding the genitourinary system. EENT: No deficits noted. No signs and/or symptoms were reported regarding the EENT system. Derm: No deficits noted. No signs and/or symptoms reported regarding the dermatologic system. Skin is intact, is healthy with good turgor, Skin is dry, Skin is normal, Skin temperature is warm. Musculoskeletal: No deficits noted. No signs and/or symptoms reported regarding the musculoskeletal system. Circulation, motion, and sensation intact. Range of motion: intact in all extremities. 05/19 00:03 Reassessment: Patient appears in no apparent distress at this time. No changes from lg3 previously documented assessment. Patient and/or family updated on plan of care and expected duration. Pain level reassessed. Patient is alert, oriented x 3, equal unlabored respirations, skin warm/dry/pink. Patient states symptoms have improved. Vital Signs: 05/18 22:25 BP 109 / 89; Pulse 68; Resp 20; Temp 98.9; Pulse Ox 99% ; Weight 56.7 kg; Height 5 ft. kb3 3 in. (160.02 cm); Pain 9/10; 05/19 00:03 BP 100 / 70; Pulse 57; Resp 17 S; Pulse Ox 100% on R/A; lg3 05/18 22:25 Body Mass Index 22.14 (56.70 kg, 160.02 cm) kb3 ED Course: 05/18 22:16 Patient arrived in ED. dt4 22:27 Bella [facility]ari [facility]C [facility] kb 22:27 Nick Amador DO is Attending Physician. kb 22:28 Triage completed. kb3 22:28 Arm band placed on right wrist. kb3 22:35 Shannon Newton, RN is Primary Nurse. lg3 23:09 COVID-19 SARS RT PCR (Document "Date of Onset" if Symptomatic) Sent. lg3 23:09 Flu Sent. lg3 23:10 CBC with Diff Sent. lg3 23:10 CMP Sent. lg3 23:10 Lipase Sent. lg3 23:18 Patient has correct armband on for positive identification. Placed in gown. Bed in low lg3 position. Call light in reach. Side rails up X 1. Client placed on continuous cardiac and pulse oximetry monitoring. NIBP monitoring applied. telemetry monitor on. Door closed. Noise minimized. Warm blanket given. Family accompanied patient. 23:18 Inserted saline lock: 20 gauge in right antecubital area, using aseptic technique. lg3 Blood collected. 05/19 00:16 No provider procedures requiring assistance completed. IV discontinued, intact, lg3 bleeding controlled, No redness/swelling at site. Pressure dressing applied. Administered Medications: 05/18 23:18 Drug: NS 0.9% 1000 ml Route: IV; Rate: 1 bolus; Site: right antecubital; lg3 05/19 00:00 Follow up: Response: No adverse reaction; IV Status: Completed infusion; IV Intake: lg3 1000ml 05/18 23:18 Drug: Pepcid (famotidine) 20 mg Route: IVP; Site: right antecubital; lg3 05/19 00:01 Follow up: Response: No adverse reaction lg3 05/18 23:18 Drug: Zofran (Ondansetron) 4 mg Route: IVP; Site: right antecubital; lg3 05/19 00:01 Follow up: Response: No adverse reaction; Nausea is decreased lg3 05/18 23:18 Drug: Ketorolac 15 mg Route: IVP; Site: right antecubital; lg3 05/19 00:00 Follow up: Response: No adverse reaction; Marked relief of symptoms; Pain is decreased lg3 00:03 Drug: Potassium Chloride 40 mEq Route: PO; lg3 00:03 Follow up: Response: No adverse reaction lg3 Medication: 00:17 VIS not applicable for this client. lg3 Intake: 00:00 IV: 1000ml; Total: 1000ml. lg3 Outcome: 05/18 23:59 Discharge ordered by . kb 05/19 00:16 Discharged to home ambulatory. lg3 Condition: stable Discharge instructions given to patient, Instructed on discharge instructions, follow up and referral plans. medication usage, Demonstrated understanding of instructions, follow-up care, medications, Prescriptions given X 2. 00:17 Patient left the ED. lg3 Signatures: Bella Ansari, FRANCO-C ENVIRONMENTAL ENGINEERING PROFESSOR-Shannon Silveira RN RN lg3 Deysi Metz RN RN kb3 Shira Isabel dt4 Corrections: (The following items were deleted from the chart) 05/18 22:30 22:25 Chief complaint: Patient states: Pt reports bilateral lower abdominal pain and kb3 suprapubic pain with associated vomiting since last night. Was seen at [facility] this morning and diagnosed with possible food poisoning and given RX for Zofran. PT reports no relief of symptoms. kb3
--- NOTE | 2022-05-19 | EDPHYS ---
Physician Documentation [facility] Name: Marie Gann Age: 22 yrs Sex: Female : 2000 Arrival Date: 05/18/2022 Time: 22:16 Bed 18 Private MD: ED Physician Nick Amador HPI: 05/18 23:56 This 22 yrs old Female presents to ER via Ambulatory with complaints of kb Abdominal Pain, Back Pain, Cough, Congestion. 23:57 The patient presents to the emergency department with nausea, vomiting, diarrhea, kb abdominal pain. Onset: The symptoms/episode began/occurred last night. Possible causes: unknown. The symptoms are aggravated by nothing. The symptoms are alleviated by nothing. Associated signs and symptoms: Pertinent positives: abdominal pain, diarrhea, nausea, vomiting. Severity of symptoms: At their worst the symptoms were mild moderate in the emergency department the symptoms are unchanged. The patient has not experienced similar symptoms in the past. The patient has not recently seen a physician. 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 - Social history:: Smoking status: Patient denies any tobacco usage or history of. ROS: 23:56 Constitutional: Negative for fever, chills, and weight loss. kb 23:56 Respiratory: Positive for cough. 23:56 Abdomen/GI: Positive for nausea, vomiting, and diarrhea. 23:56 All other systems are negative. Exam: 23:57 Constitutional: This is a well developed, well nourished patient who is awake, alert, kb and in no acute distress. Head/Face: Normocephalic, atraumatic. ENT: Moist Mucous membranes Cardiovascular: Regular rate and rhythm with a normal S1 and S2. No gallops, murmurs, or rubs. No pulse deficits. Respiratory: Respirations even and unlabored. No increased work of breathing. Talking in full sentences Abdomen/GI: Soft, non-tender. No distention Back: No spinal tenderness. No costovertebral tenderness. Full range of motion. Skin: Warm, dry with normal turgor. Normal color. MS/ Extremity: Pulses equal, no cyanosis. Neurovascular intact. Full, normal range of motion. Neuro: Awake and alert, GCS 15, oriented to person, place, time, and situation. Moves all extremities. Normal gait. Psych: Awake, alert, with orientation to person, place and time. Behavior, mood, and affect are within normal limits. Vital Signs: 22:25 BP 109 / 89; Pulse 68; Resp 20; Temp 98.9; Pulse Ox 99% ; Weight 56.7 kg; Height 5 ft. kb3 3 in. (160.02 cm); Pain 9/10; 05/19 00:03 BP 100 / 70; Pulse 57; Resp 17 S; Pulse Ox 100% on R/A; lg3 05/18 22:25 Body Mass Index 22.14 (56.70 kg, 160.02 cm) kb3 MDM: 05/18 22:30 Patient medically screened. kb 23:57 Data reviewed: vital signs, nurses notes. Data interpreted: Pulse oximetry: on room air kb is 99 %. Interpretation: normal. Counseling: I had a detailed discussion with the patient and/or guardian regarding: the historical points, exam findings, and any diagnostic results supporting the discharge/admit diagnosis, lab results, the need for outpatient follow up, a family practitioner, to return to the emergency department if symptoms worsen or persist or if there are any questions or concerns that arise at home. 05/18 22:47 Order name: CBC with Diff; Complete Time: 23:36 kb 05/18 22:47 Order name: CMP; Complete Time: 23:36 kb 05/18 22:47 Order name: Lipase; Complete Time: 23:36 kb 05/18 22:48 Order name: Flu; Complete Time: 23:56 kb 05/18 22:48 Order name: COVID-19 SARS RT PCR (Document "Date of Onset" if Symptomatic); Complete kb Time: 23:51 05/18 22:57 Order name: Urine Dipstick-Ancillary; Complete Time: 22:57 EDMS 05/18 22:47 Order name: IV Saline Lock; Complete Time: 23:10 kb 05/18 22:47 Order name: Labs collected and sent; Complete Time: 23:10 kb 05/18 22:57 Order name: Urine --Ancillary (enter results); Complete Time: 23:10 mb4 05/18 22:47 Order name: Urine Dipstick-Ancillary (obtain specimen); Complete Time: 22:57 kb 05/18 22:47 Order name: Urine Test (obtain specimen); Complete Time: 22:57 kb Administered Medications: 23:18 Drug: NS 0.9% 1000 ml Route: IV; Rate: 1 bolus; Site: right antecubital; lg3 05/19 00:00 Follow up: Response: No adverse reaction; IV Status: Completed infusion; IV Intake: lg3 1000ml 05/18 23:18 Drug: Pepcid (famotidine) 20 mg Route: IVP; Site: right antecubital; lg3 05/19 00:01 Follow up: Response: No adverse reaction lg3 05/18 23:18 Drug: Zofran (Ondansetron) 4 mg Route: IVP; Site: right antecubital; lg3 05/19 00:01 Follow up: Response: No adverse reaction; Nausea is decreased lg3 05/18 23:18 Drug: Ketorolac 15 mg Route: IVP; Site: right antecubital; lg3 05/19 00:00 Follow up: Response: No adverse reaction; Marked relief of symptoms; Pain is decreased lg3 00:03 Drug: Potassium Chloride 40 mEq Route: PO; lg3 00:03 Follow up: Response: No adverse reaction lg3 Disposition: 05:55 Co-signature as Attending Physician, Nick ALAN was immediately available on-site ms3 in the Emergency Department for consultation in the care of the patient.. Disposition Summary: 05/18/22 23:59 Discharge Ordered Location: Home kb Condition: Stable kb Diagnosis - Noninfective gastroenteritis and colitis, unspecified kb Followup: kb - With: Emergency Department - When: As needed - Reason: Worsening of condition Followup: kb - With: Private Physician - When: 2 - 3 days - Reason: Recheck today's complaints, Continuance of care, Re-evaluation by your physician Discharge Instructions: - Discharge Summary Sheet kb - Food Choices to Help Relieve Diarrhea, Adult kb - Viral Gastroenteritis, Adult kb Forms: - Medication Reconciliation Form kb - Thank You Letter kb - Antibiotic Education kb - Prescription Opioid Use kb Prescriptions: - promethazine 25 mg Oral Tablet - take 1 tablet by ORAL route every 8 hours As needed; 10 tablet; Refills: 0, kb Product Selection Permitted - dicyclomine 20 mg Oral Tablet - take 1 tablet by ORAL route 4 times per day As needed; 20 tablet; Refills: 0, kb Product Selection Permitted Signatures: Dispatcher [employer] EDBella Robertson, Shannon Merrill, RANDOLPH RN lg3 Nick Amador DO DO ms3 Deysi Metz, RN RN kb3
[2022-05-19 00:31] VITALS: TEMP 98.9
[2022-05-19 00:32] VITALS: BP 100/70; O2SAT 100
== END 2022-05-19 00:17 | disposition home or self-care (01) ==
LOC: ER 22:05
DX: K52.9 Noninfective gastroenteritis and colitis, unspecified (principal); R05.9 Cough, unspecified; Z20.822 Contact with and (suspected) exposure to COVID-19
CPT/HCPCS: 96361; 85025; 36415; 81025; 81003; 83690; 80053; 87804 ×2; 96375; 96374; 99284; U0003; J7030; J2405

== ENCOUNTER 2022-06-04 07:50 | Emergency (ER) | payer OTHER ==
--- OUTSIDE RECORDS SUMMARY | 2022-06-04 07:54 | XMS REPORT | Continuity of Care Document ---
:2000 Author Organization [facility] t Address [address] [place] [address] Care Team Providers Name Role Phone Pawel Gayle Primary Care Physician Mona Garcia DO Attending Clinician MONA GARCIA Attending Clinician Unavailable TRACE SCHMID Attending Clinician Unavailable Aster Cardoso MD Attending Clinician ASTER CARDOSO Attending Clinician Unavailable Trace Valdes Attending Clinician Doctor Unassigned, Elmo Attending Clinician Unavailable Payers Payer Name Policy [...] Active Univers ALLERGIE Class ity of S [facility] Social History Social Habit Start Date Stop Date Quantity Comments Source History SDOH University o f Alcohol Frequency [place] [facility] History SDOH University o f Alcohol Std [place] [facility] Drinks [facility] History SDMA University o f Alcohol Binge [facility] [place] Exposure to 2022-05-08 2022-05-18 [facility] 09:16:00 [facility] (event) [place] Alcohol intake 2022-05-18 2022-05-18 .43 /d [facility] 00:00:00 00:00:00 [facility] Tobacco use and 2022-01-09 2022-01-09 Smokeless tobacco Un iversity of exposure 00:00:00 00:00:00 non-user [facility] Alcohol Comment 2022-01-09 2022-01-09 socially Universit y of 00:00:00 00:00:00 [facility] Sex Assigned At [birth year] Universit y of 00:00:00 00:00:00 [facility] Smoking Status Start Date Stop Date Source Never smoked tobacco [facility] [place] Medications Ordered Filled Start Stop Current Ordering Indication Dosage Frequency Signature Comments Components Source Medication Medication Date Date Medication? Clinician (SIG) Name Name ondansetron 2021-07 4mg 4 mg, [facility] ers (ZOFRAN-ODT 0-21 10-21 Oral, ity of ) 15:30: 14:23 ONCE, 1 [place] disintegrat 00 :00 dose, On Medi murali ing tablet Fri Branch 4 mg 05/18/22 at 1030, Routine ondansetron 2021-07 Yes [id number] 4mg Take 1 Univers 4 mg 0-21 tablet by ity of disintegrat 00:00: mouth [place] ing tablet 00 every 8 Medica l (eight) Branch hours as needed for Nausea and Vomiting (N/V). norgestimat Yes [id number] 1{tbl} Take 1 Univers e-ethinyl 6-16 tablet by ity o f estradioL 00:00: mouth [place] 0.25-35 00 daily. Medical mg-mcg per Branch tablet norgestimat Yes [id number] 1{tbl} Take 1 Univers e-ethinyl 6-16 tablet by ity o f estradioL 00:00: mouth [place] 0.25-35 00 daily. Medical mg-mcg per Branch tablet Immunizations Ordered Filled Immunization Date Status Comments Sourc e Immunization Name Name [facility] 2018-10-20 Completed University of 00:00:00 [facility] 2018-10-20 Completed University of 00:00:00 [facility] 2017-04-10 Completed University of 00:00:00 [facility] 2017-04-10 Completed University of 00:00:00 [facility] 2016-07-16 Completed University of 00:00:00 [facility] 2016-07-16 Completed University of 00:00:00 [facility] Vital Signs Vital Name Observation Time Observation Value Comments Source Systolic blood 2022-05-18 14:17:00 106 mm[Hg] Univer sity of pressure [facility] Diastolic blood 2022-05-18 14:17:00 80 mm[Hg] Unive rsity of [facility] Heart rate 2022-05-18 14:17:00 78 /min [facility] Body temperature 2022-05-18 14:17:00 36.67 Paige [facility] Respiratory rate 2022-05-18 14:17:00 18 /min [facility] Body height 2022-05-18 14:17:00 160 cm [facility] Body weight 2022-05-18 14:17:00 56.7 kg [facility] BMI 2022-05-18 14:17:00 22.14 kg/m2 [facility] Oxygen saturation in 2022-05-18 14:17:00 99 /min [facility] Arterial blood by [facility] Pulse oximetry Branch Systolic blood 2022-01-11 14:20:00 109 mm[Hg] Univer sity of pressure [facility] Diastolic blood 2022-01-11 14:20:00 71 mm[Hg] Unive rsity of [facility] Heart rate 2022-01-11 14:20:00 76 /min [facility] temperature 2022-01-11 14:20:00 36.89 [facility]ige [facility] Respiratory rate 2022-01-11 14:20:00 18 /min [facility] Body height 2022-01-11 14:20:00 162.6 cm [facility] Body weight 2022-01-11 14:20:00 61.236 kg [facility] BMI 2022-01-11 14:20:00 23.17 kg/m2 [facility] Procedures Procedure Date / Time Performed Performing Clinician Sourc e POCT TEST 2022-05-18 14:24:00 Mona Garcia [facility] CONSENT/REFUSAL FOR 2022-05-18 14:12:43 Doctor Unassigned, No Un [facility] DIAGNOSIS AND Name [facility] TREATMENT Encounters Start End Encounter Admission Attending Care Care Encounter Source Date/Time Date/Time Type Type Clinicians Facility Department ID 2022-05-18 2022-05-18 [facility] [id number] Univers 09:18:00 09:56:00 Mona RODRIGUEZ [id number] ity [facility] [id number] [facility] [id number] [place] [id number] [place] 2022-05-18 2022-05-18 [facility] [id number] Univers 09:18:00 09:56:00 MONA apodaca [facility] 2022-02-12 2022-02-12 Outpatient Deondre SCHMID [facility] [id number] Univers 13:15:00 13:15:00 TRACE caoy o f [facility] 2022-01-11 2022-01-11 Office Aster Cardoso [facility] [id number] Univers 09:00:00 09:43:54 Visit ZANE [id number] it y [facility] [id number] [facility] [id number] [facility] 134 Branch 2022-01-11 2022-01-11 Outpatient R ASTER CARDOSO [facility] [id number] Univers 09:00:00 09:43:54 ity [facility] 2022-01-11 2022-01-11 Outpatient R ASTER CARDOSO [facility] [id number] Univers 09:00:00 09:00:00 ity of [facility] 2022-01-10 2022-01-10 Outpatient Deondre SCHMID [facility] [id number] Univers 13:15:00 13:15:00 TRACE beltrán [facility] 2022-01-10 2022-01-10 Outpatient Deondre SCHMID [facility] [id number] Univers 13:15:00 13:15:00 TRACE saeed [facility] 2022-01-09 2022-01-09 Office Jean Claude [facility] [id number] Univers 14:00:00 14:30:32 [facility] 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 [id number] ity [facility] [id number] Saúl as MATERNAL [id number] Med ical & CHILD [address] [place] [address] 2022-01-09 2022-01-09 Outpatient Deondre SCHMID [facility] [id number] Univers 14:00:00 14:30:32 TRACE saeed [facility] 2022-01-09 2022-01-09 Outpatient Deondre SCHMID [facility] [id number] Univers 14:00:00 14:30:32 WENDYGEMINI saeed [facility] 2022-01-09 2022-01-09 Orders Doctor CELINE [id number] Univers 00:00:00 00:00:00 Only Unassigned, JOSÉ MIGUEL [id number] [facility] [id number] Saúl as [id number] [address] 2021-11-14 2021-11-14 Outpatient ASTER LAGUNA [facility] [id number] Univers 09:30:00 09:30:00 [facility] Results Test Description Test Time Test Comments Results Result Comments Source POCT TEST 2022-05-18 14:24:00 Test Item Value Reference Range Interpretation Comme nts POCT PREG (test code = 1605) negative On board controls acceptable with C Line (test code = 3574) present POCT PREG LOT # (test code = 3575) [id number] POCT PREG TEST DATE (test code = 3576) 09-26-2023 Lab Interpretation (test code = 99460-2) [facility]
[2022-06-04] MEDS ORDERED: ONDANSETRON 4 MG/2 ML VIAL ONE (08:12)
[2022-06-04] MEDS ORDERED: NA CHLORIDE 0.9% 1,000 ML ONE (08:12)
[2022-06-04] MEDS ORDERED: MORPHINE 2 MG/ML SYR ONE (08:12)
[2022-06-04 09:04] LABS: Absolute Lymphocytes (CBC) 2.1 K/uL (0.7-4.9); Hematocrit 38.5 % (36.0-45.0); Lymphocytes % 38.3 % (15.3-44.8); MCV 87.5 fL (80-100); MPV 6.9 fL (7.6-11.3)
[2022-06-04 09:26] LABS: Urine Blood 3+ (Negative); Urine Glucose Negative (Negative); Urine Protein Trace (Negative); Urine Specific Gravity >=1.030 (1.005-1.030)
[2022-06-04 09:37] LABS: BUN Blood Urea Nitrogen 10 mg/dL (7-18); Bicarbonate 26 mmol/L (21-32); Glomerular Filtration Rate 132 ml/min (=/>90); Glucose Level 87 mg/dL (74-106); Potassium 3.1 mmol/L (3.5-5.1); Sodium Level 140 mmol/L (136-145)
[2022-06-04 09:38] LABS: HCG, Quantitative < 1 mIU/mL (1-3)
[2022-06-04 09:40] LABS: Urine Mucus 3+ /HPF (None Seen); Urine RBC <5 /HPF (None Seen); Urine WBC Clump Rare /HPF (None Seen)
[2022-06-04] MEDS ORDERED: POTASSIUM CL SA 10 MEQ TAB PO ONE (10:32)
--- NOTE | 2022-06-04 12:10 | RAD REPORT ---
EXAM DESCRIPTION: US - Transvaginal Study Probe - 06/04/2022 11:54 am CLINICAL HISTORY: Pelvic pain COMPARISON: none FINDINGS: The uterus measures 8 x 4 x 4 cm. A fibroid is not seen. The endometrial stripe measures 3 millimeters. A gestational sac is not seen The ovaries are normal in size and echotexture. A 1.6 centimeter hemorrhagic follicle left ovary The right and left adnexa unremarkable No significant free fluid is seen. IMPRESSION: No significant abnormalities displayed. A gestational sac is not visualized within the e ndometrium
--- NOTE | 2022-06-04 12:27 | ER ---
Nurse's Notes [facility] Name: Marie Gann Age: 22 yrs Sex: Female : 2000 Arrival Date: 06/04/2022 Time: 07:51 Bed 5 Private MD: Pawel Gayle Diagnosis: Irregular menstruation, unspecified Presentation: 06/04 07:57 Chief complaint: Patient states: she is having a miscarriage. She reports this morning mb8 0430 she had vaginal bleeding and then had clots in the stool. Patient was unaware she was . Patient having RLQ abdominal pain. Pain 10. Coronavirus screen: Vaccine status: Patient reports being unvaccinated. Ebola Screen: Patient negative for fever greater than or equal to 101.5 degrees Fahrenheit, and additional compatible Ebola Virus Disease symptoms Patient denies exposure to infectious person. Patient denies travel to an Ebola-affected area in the 21 days before illness onset. 07:57 Method Of Arrival: Ambulatory mb8 07:57 Initial Sepsis Screen: Does the patient meet any 2 criteria? No. Patient's initial mb8 sepsis screen is negative. Does the patient have a suspected source of infection? No. Patient's initial sepsis screen is negative. Risk Assessment: Do you want to hurt yourself or someone else? Patient reports no desire to harm self or others. Onset of symptoms was June 04, 2022 at 04:30. 07:57 Acuity: AD 3 mb8 Triage Assessment: 08:00 General: Appears uncomfortable, Behavior is cooperative, appropriate for age, anxious. mb8 Pain: Complains of pain in right lower quadrant Pain does not radiate. Pain currently is 10 out of 10 on a pain scale. Quality of pain is described as sharp. ACID DUMPER: 08:00 1, Full Term 1, 0, Living 1, LMP 05/02/2022 jh7 08:45 LMP 05/02/2022 vg1 Historical: - Allergies: 07:57 No Known Allergies; mb8 - Home Meds: 07:57 None [Active]; mb8 - PMHx: 07:57 Ovarian cyst; seasonal allergies; mb8 - Social history:: Smoking status: Patient denies any tobacco usage or history of. Screenin:15 Abuse screen: Denies threats or abuse. Nutritional screening: No deficits noted. vg1 Tuberculosis screening: No symptoms or risk factors identified. Fall Risk No fall in past 12 months (0 pts). No secondary diagnosis (0 pts). IV access (20 points). Ambulatory Aid- None/Bed Rest/Nurse Assist (0 pts). Gait- Normal/Bed Rest/Wheelchair (0 pts) Mental Status- Oriented to own ability (0 pts). Total Almanza Fall Scale indicates No Risk (0-24 pts). Assessment: 08:15 General: Appears in no apparent distress. comfortable, Behavior is calm, cooperative. vg1 Pain: Complains of pain in right lower quadrant and left lower quadrant Pain currently is 9 out of 10 on a pain scale. Pain began 1 day ago. Neuro: Level of Consciousness is awake, alert, obeys commands, Oriented to person, place, time, situation. Cardiovascular: Patient's skin is warm and dry. Respiratory: Airway is patent Respiratory effort is even, unlabored. GI: Abdomen is flat, Reports nausea, vomiting. : Reports vaginal bleeding that is bright red, with clots, heavy flow since this morning; light bleeding began yesterday. EENT: No signs and/or symptoms were reported regarding the EENT system. Derm: Skin is pink, warm \T\ dry. Musculoskeletal: Circulation, motion, and sensation intact. 09:16 Reassessment: Patient appears in no apparent distress at this time. Patient and/or vg1 family updated on plan of care and expected duration. Pain level reassessed. Patient is alert, oriented x 3, equal unlabored respirations, skin warm/dry/pink. Patient states feeling better. 10:34 Reassessment: Patient appears in no apparent distress at this time. Patient and/or vg1 family updated on plan of care and expected duration. Pain level reassessed. Patient is alert, oriented x 3, equal unlabored respirations, skin warm/dry/pink. Rated ABD pain 2/10 Patient states feeling better. 11:55 Reassessment: In US. vg1 13:14 Reassessment: Patient appears in no apparent distress at this time. Patient and/or vg1 family updated on plan of care and expected duration. Pain level reassessed. Patient is alert, oriented x 3, equal unlabored respirations, skin warm/dry/pink. Patient denies pain at this time. Patient states feeling better. Vital Signs: 07:57 BP 113 / 87; Pulse 92; Resp 16; Temp 97.9; Pulse Ox 99% ; Weight 56.7 kg; Height 5 ft. mb8 4 in. (162.56 cm); Pain 10/10; 08:30 BP 112 / 89; Pulse 68; Resp 15; Pulse Ox 100% on R/A; vg1 10:34 BP 116 / 87; Pulse 74; Resp 14; Pulse Ox 100% ; vg1 11:30 BP 110 / 85; Pulse 77; Resp 15; Pulse Ox 98% on R/A; vg1 13:00 BP 107 / 83; Pulse 65; Resp 14; Pulse Ox 99% on R/A; vg1 07:57 Body Mass Index 21.46 (56.70 kg, 162.56 cm) 8 ED Course: 07:51 Patient arrived in ED. am2 07:52 Pawel Gayle MD is Private Physician. am2 07:52 Bernard Carroll MD is Attending Physician. rn 07:57 Patsy Ramirez FNP is PHCP. jh7 07:57 Patsy Ramirez FNP is PHCP. jh 07:57 Bernard Carroll MD is Attending Physician. [facility] 08:00 Triage completed. mb8 08:00 Arm band placed on left wrist. 8 08:05 Therese Taylor, RANDOLPH is Primary Nurse. vg1 08:15 Patient has correct armband on for positive identification. Placed in gown. Bed in low vg1 position. Call light in reach. Side rails up X 1. Adult w/ patient. Pulse ox on. NIBP on. 08:30 Initial lab(s) drawn, by me, sent to lab. Inserted saline lock: 20 gauge in right vg1 antecubital area, using aseptic technique. Blood collected. 09:43 Note: called at least 3 times for urine preg and still waiting for results--- hr. hr Radiology exam delayed due to test not completed at this time. 11:56 Transvaginal Study Probe In Process Unspecified. EDMS 13:15 No provider procedures requiring assistance completed. IV discontinued, intact, vg1 bleeding controlled, No redness/swelling at site. Pressure dressing applied. Administered Medications: 08:31 Drug: NS 0.9% 1000 ml Route: IV; Rate: 1 bolus; Site: right antecubital; vg1 09:16 Follow up: IV Status: Completed infusion; IV Intake: 1000ml vg1 08:32 Drug: Zofran (Ondansetron) 4 mg Route: IVP; Site: right antecubital; vg1 09:16 Follow up: Response: Marked relief of symptoms vg1 08:34 Drug: morphine 2 mg Route: IVP; Infused Over: 4 mins; Site: right antecubital; vg1 09:16 Follow up: Response: No adverse reaction; Pain is decreased vg1 10:34 Drug: Potassium Chloride 40 mEq Route: PO; vg1 13:16 Follow up: Response: No adverse reaction vg1 Medication: 08:15 VIS not applicable for this client. vg1 Intake: 09:16 IV: 1000ml; Total: 1000ml. vg1 Outcome: 12:26 Discharge ordered by . 7 13:16 Discharged to home ambulatory, with family. vg1 13:16 Condition: good 13:16 Discharge instructions given to patient, Instructed on discharge instructions, follow up and referral plans. Demonstrated understanding of instructions, follow-up care. 13:16 Patient left the ED. vg1 Signatures: Dispatcher [employer] EDMS Xenia Barragan Roman, MD MD rn Moreno, Amanda am2 Garcia, Victoria RN RN 1 Patsy Ramirez, DESIGN SUPERVISOR DESIGN SUPERVISOR 7 Niles Cesar, RN RN mb8 Corrections: (The following items were deleted from the chart) 08:00 07:57 BP 113 / 87; Pulse 92bpm; Resp 16bpm; Pulse Ox 99%; Temp 97.9F; 56.7 kg; Height 5 mb8 ft. 4 in.; BMI: 21.4; mb8 10:28 10:16 In radiology for Transvaginal Study Probe. EDMS EDMS
--- NOTE | 2022-06-04 12:27 | EDPHYS ---
Physician Documentation [facility] Name: Marie Gann Age: 22 yrs Sex: Female : 2000 Arrival Date: 06/04/2022 Time: 07:51 Bed 5 Private MD: Pawel Gayle ED Physician Bernard Carroll HPI: 06/04 08:00 This 22 yrs old Female presents to ER via Ambulatory with complaints of jh7 Vaginal Bleeding, + Preg <12wks, Pelvic Pain. 08:00 The patient presents to the emergency department with vaginal bleeding, that is jh7 moderate, with clots. The estimated gestational age is 4 weeks. The estimated gestational age is 5 weeks. Previous pregnancies: in previous pregnancies patient has had no complications. Associated signs and symptoms: Pertinent positives: Pelvic cramping. Patient states she woke up at 430 this morning with vaginal bleeding and passing clots. Reports that she did not know she was and she believes that she is miscarrying.. INFECTION PREVENTION SPECIALIST: 08:00 1, Full Term 1, 0, Living 1, LMP 05/02/2022 jh7 08:45 LMP 05/02/2022 vg1 Historical: - Allergies: 07:57 No Known Allergies; mb8 - Home Meds: 07:57 None [Active]; mb8 - PMHx: 07:57 Ovarian cyst; seasonal allergies; mb8 - Social history:: Smoking status: Patient denies any tobacco usage or history of. ROS: 08:00 Constitutional: Negative for fever, chills, and weight loss, Eyes: Negative for injury, jh7 pain, redness, and discharge, Cardiovascular: Negative for chest pain, palpitations, and edema, Respiratory: Negative for shortness of breath, cough, wheezing, and pleuritic chest pain, Abdomen/GI: Negative for abdominal pain, nausea, vomiting, diarrhea, and constipation, Back: Negative for injury and pain, MS/Extremity: Negative for injury and deformity, Skin: Negative for injury, rash, and discoloration, Neuro: Negative for headache, weakness, numbness, tingling, and seizure. 08:00 : Positive for pelvic pain, vaginal bleeding, Negative for urinary symptoms. 08:00 All other systems are negative. Exam: 08:00 Constitutional: This is a well developed, well nourished patient who is awake, alert, jh7 and in no acute distress. Head/Face: Normocephalic, atraumatic. Neck: Trachea midline, no thyromegaly or masses palpated, and no cervical lymphadenopathy. Supple, full range of motion without nuchal rigidity, or vertebral point tenderness. No Meningismus. Cardiovascular: Regular rate and rhythm with a normal S1 and S2. No gallops, murmurs, or rubs. Normal PMI, no JVD. No pulse deficits. Respiratory: Lungs have equal breath sounds bilaterally, clear to auscultation and percussion. No rales, rhonchi or wheezes noted. No increased work of breathing, no retractions or nasal flaring. Back: No spinal tenderness. No costovertebral tenderness. Full range of motion. Skin: Warm, dry with normal turgor. Normal color with no rashes, no lesions, and no evidence of cellulitis. MS/ Extremity: Pulses equal, no cyanosis. Neurovascular intact. Full, normal range of motion. Neuro: Awake and alert, GCS 15, oriented to person, place, time, and situation. Normal gait. 08:00 Abdomen/GI: Inspection: abdomen appears normal, Bowel sounds: normal, Palpation: soft, nontender, in all quadrants. 08:00 : CVA tenderness, is absent. Vital Signs: 07:57 BP 113 / 87; Pulse 92; Resp 16; Temp 97.9; Pulse Ox 99% ; Weight 56.7 kg; Height 5 ft. mb8 4 in. (162.56 cm); Pain 10/10; 08:30 BP 112 / 89; Pulse 68; Resp 15; Pulse Ox 100% on R/A; vg1 10:34 BP 116 / 87; Pulse 74; Resp 14; Pulse Ox 100% ; vg1 11:30 BP 110 / 85; Pulse 77; Resp 15; Pulse Ox 98% on R/A; vg1 13:00 BP 107 / 83; Pulse 65; Resp 14; Pulse Ox 99% on R/A; vg1 07:57 Body Mass Index 21.46 (56.70 kg, 162.56 cm) [facility] MDM: 07:52 Patient medically screened. rn 12:30 Differential diagnosis: ectopic , Menstruation, abnormal uterine bleeding. [facility] Data reviewed: vital signs, nurses notes, lab test result(s), radiologic studies, ultrasound. Data interpreted: Pulse oximetry: is 100 %. Interpretation: normal. Counseling: I had a detailed discussion with the patient and/or guardian regarding: the historical points, exam findings, and any diagnostic results supporting the discharge/admit diagnosis, to return to the emergency department if symptoms worsen or persist or if there are any questions or concerns that arise at home. Special discussion: The patient will follow up with her INFECTION PREVENTION SPECIALIST. Informed her that this is likely her menstrual cycle and that she was just a few days late. Also informed her that she was likely never and reviewed all lab results.. 06/04 08:07 Order name: Basic Metabolic Panel; Complete Time: 09:52 [facility] 06/04 08:07 Order name: CBC with Diff; Complete Time: 09:09 [facility] 06/04 08:07 Order name: Quantitative Hcg; Complete Time: 09:52 [facility] 06/04 08:07 Order name: Type And Screen; Complete Time: 11:15 [facility] 06/04 08:07 Order name: Urine Microscopic Only; Complete Time: 09:52 [facility] 06/04 09:27 Order name: Urine Dipstick-Ancillary; Complete Time: 09:28 EDMS 06/04 10:28 Order name: Pelvis Complete EDMS 06/04 11:56 Order name: Transvaginal Study Probe; Complete Time: 12:24 EDMS 06/04 08:07 Order name: IV Saline Lock; Complete Time: 08:42 [facility] 06/04 08:07 Order name: Labs collected and sent; Complete Time: 08:42 [facility] 06/04 08:07 Order name: NPO; Complete Time: 08:09 [facility] 06/04 08:07 Order name: Urine Dipstick-Ancillary (obtain specimen); Complete Time: 09:31 [facility] 06/04 08:07 Order name: Urine Test (obtain specimen); Complete Time: 09:31 [facility] Administered Medications: 08:31 Drug: NS 0.9% 1000 ml Route: IV; Rate: 1 bolus; Site: right antecubital; vg1 09:16 Follow up: IV Status: Completed infusion; IV Intake: 1000ml vg1 08:32 Drug: Zofran (Ondansetron) 4 mg Route: IVP; Site: right antecubital; vg1 09:16 Follow up: Response: Marked relief of symptoms vg1 08:34 Drug: morphine 2 mg Route: IVP; Infused Over: 4 mins; Site: right antecubital; vg1 09:16 Follow up: Response: No adverse reaction; Pain is decreased vg1 10:34 Drug: Potassium Chloride 40 mEq Route: PO; vg1 13:16 Follow up: Response: No adverse reaction vg1 Disposition: 17:41 Co-signature as Attending Physician, Bernard Carroll MD. rn Disposition Summary: 06/04/22 12:26 Discharge Ordered Location: Home [facility] Problem: new [facility] Symptoms: have improved [facility] Condition: Stable [facility] Diagnosis - Irregular menstruation, unspecified [facility] Followup: [facility] - With: Private Physician - When: 2 - 3 days - Reason: Recheck today's complaints Discharge Instructions: - Discharge Summary Sheet [facility] - Menstruation [facility] Forms: - Medication Reconciliation Form [facility] - Thank You Letter [facility] Signatures: Dispatcher [employer] EDBernard Negrete MD MD rn Garcia, Victoria, RN RN [facility] Patsy Ramirez, GLASS VIAL BENDING CONVEYOR FEEDER [place] [id number] Niles Cesar RN RN mb8 Corrections: (The following items were deleted from the chart) 09:55 08:08 Transvaginal Ob+US.RAD.BRZ ordered. EDMS EDMS 10:28 09:55 Transvaginal Study Probe ordered. EDMS EDMS
[2022-06-04 13:28] VITALS: TEMP 97.9
[2022-06-04 13:33] VITALS: BP 107/83; O2SAT 99
--- NOTE | 2022-06-05 15:44 | RAD REPORT ---
EXAM DESCRIPTION: US - Pelvis Complete - 06/04/2022 11:33 am CLINICAL HISTORY: Pelvic pain COMPARISON: None FINDINGS: The uterus measures 8 x 4 x 4 cm. A fibroid is not seen. The endometrial stripe measures 3 millimeters. A gestational sac is not seen The ovaries are normal in size and echotexture. A 1.6 centimeter hemorrhagic follicle left ovary The right and left adnexa unremarkable No significant free fluid is seen. IMPRESSION: No significant abnormalities displayed. A gestational sac is not visualized within the e ndometrium
== END 2022-06-04 13:16 | disposition home or self-care (01) ==
LOC: ER 07:50
DX: N92.6 Irregular menstruation, unspecified (principal)
CPT/HCPCS: 96361; 85025; 80048; 36415; 86900; 86850; 86901; 84702; 76856; 76830; 96375; 96374; 99284; J2270; J7030; J2405; 81003; 81015

== ENCOUNTER 2022-09-12 09:13 | Emergency (ER) | payer OTHER ==
--- OUTSIDE RECORDS SUMMARY | 2022-09-12 09:16 | XMS REPORT | Continuity of Care Document ---
:2000 Author Organization [facility] t Address [address] [place] [address] Care Team Providers Name Role Phone Pawel Gayle Primary Care Physician TATIANA DONALD Attending Clinician Unavailable TATIANA DONALD Attending Clinician Unavailable Mona Garcia DO Attending Clinician MONA GARCIA Attending Clinician Unavailable TRACE SCHMID Attending Clinician Unavailable ASTER HERNANDEZ Attending Clinician Unavailable Aster Hernandez MD Attending Clinician Trace Valdes Attending Clinician Doctor Unassigned, [place] Attending Clinician Unavailable Payers Payer Name Policy Type Policy Number Effective Date Expiration Date S skinny [place] [employer]ILDR[employer] STAR [id number] 2022 00:00:00 Problems Condition Condition Condition Status Onset Resolution [...] Active Univers ALLERGIE Class ity of S [facility] Social History Social Habit Start Date Stop Date Quantity Comments Source History SDOH University o f Alcohol Frequency [place] [facility] History SDOH University o f Alcohol Std [place] [facility] Drinks [facility] History SDWV University o f Alcohol Binge [place] [facility] Alcohol intake 2022-07-12 2022-07-12 .43 /d [facility] 00:00:00 00:00:00 [facility] Exposure to 2022-06-19 2022-06-[address] [facility] SARS-CoV-2 00:00:00 14:25:00 [facility] (event) [place] Tobacco use and 2022-06-29 2022-06-29 Smokeless tobacco Un iversity of exposure 00:00:00 00:00:00 non-user [facility] Alcohol Comment 2022-01-09 2022-01-09 socially Universit y of 00:00:00 00:00:00 [facility] Sex Assigned At [birth year] Universit y of 00:00:00 00:00:00 [facility] Smoking Status Start Date Stop Date Source Never smoked tobacco [facility] Medications Ordered Filled Start Stop Current Ordering Indication Dosage Frequency Signature Comments Components Source Medication Medication Date Date Medication? Clinician (SIG) Name Name norgestimat 2021-07 Yes [id number] 1{tbl} Take 1 Univers e-ethinyl 2-02 tablet by ity o [place] estradio[place] the Medical mg-mcg per morning. Branc h tablet ondansetron 2021-07 4mg 4 mg, Univ ers (ZOFRAN-ODT 0-21 10-21 Oral, ity of ) 15:30: 14:23 ONCE, 1 [place] disintegrat 00 :00 dose, On Medi murali ing tablet Fri Branch 4 mg 05/18/22 at 1030, Routine ondansetron 2021-07 Yes [id number] 4mg Take 1 Univers 4 mg 0-21 tablet by ity of disintegrat 00:00: mouth [place] ing tablet 00 every 8 Medica l (eight) Branch hours as needed for Nausea and Vomiting (N/V). ondansetron 2021-07 Yes [id number] 4mg Take 1 Univers 4 mg 0-21 tablet by ity of disintegrat 00:00: mouth [place] ing tablet 00 every 8 Medica l (eight) Branch hours as needed for Nausea and Vomiting (N/V). norgestimat Yes [id number] 1{tbl} Take 1 Univers e-ethinyl 6-16 tablet by ity o f estradioL 00:00: mouth [place] 0.25-35 00 daily. Medical mg-mcg per Branch tablet norgestimat Yes [id number] 1{tbl} Take 1 Univers e-ethinyl 6-16 tablet by ity o f estradioL 00:00: mouth [place] 0.25-35 00 daily. Medical mg-mcg per Branch tablet norgestimat 2021- No [id number] 1{tbl} Take 1 Univers e-ethinyl 6-16 12-02 tablet by ity of estradioL 00:00: 00:00 mouth [place] 0.25-35 00 :00 daily. Medical mg-mcg per Branch tablet Immunizations Ordered Filled Immunization Date Status Comments [facility] e Immunization Name Name [facility] 2018-10-20 Completed University of 00:00:00 [facility] 2018-10-20 Completed University of 00:00:00 [facility] 2018-10-20 Completed University of 00:00:00 [facility] 2017-04-10 Completed University of 00:00:00 [facility] 2017-04-10 Completed University of 00:00:00 [facility] 2017-04-10 Completed University of 00:00:00 [facility] 2016-07-16 Completed University of 00:00:00 [facility] 2016-07-16 Completed University of 00:00:00 [facility] 2016-07-16 Completed University of 00:00:00 [facility] Vital Signs Vital Name Observation Time Observation Value Comments Source Systolic blood 2022-06-29 20:54:00 119 mm[Hg] Univer sity of pressure [facility] Diastolic blood 2022-06-29 20:54:00 82 mm[Hg] Unive rsity of pressure [facility] Heart rate 2022-06-29 20:54:00 78 /min [facility] [place] [facility] Body temperature 2022-06-29 20:54:00 37.06 Paige [facility] [place] [facility] Respiratory rate 2022-06-29 20:54:00 18 /min [facility] [place] [facility] Body height 2022-06-29 20:54:00 160 cm [facility] [place] [facility] Body weight 2022-06-29 20:54:00 58.06 kg [facility] [place] [facility] BMI 2022-06-29 20:54:00 22.67 kg/m2 [facility] [place] [facility] Systolic blood 2022-05-18 14:17:00 106 mm[Hg] Univer sity of pressure [place] [facility] Diastolic blood 2022-05-18 14:17:00 80 mm[Hg] Unive rsity of pressure [facility] Heart rate 2022-05-18 14:17:00 78 /min [facility] [place] [facility] Body temperature 2022-05-18 14:17:00 36.67 Paige [facility] [place] [facility] Respiratory rate 2022-05-18 14:17:00 18 /min Univ [facility] [place] [facility] Body height 2022-05-18 14:17:00 160 cm [facility] [place] [facility] Body weight 2022-05-18 14:17:00 56.7 kg [facility] [place] [facility] BMI 2022-05-18 14:17:00 22.14 kg/m2 [facility] [place] [facility] Oxygen saturation in 2022-05-18 14:17:00 99 /min University of Arterial blood by [facility] Pulse oximetry Branch Systolic blood 2022-01-11 14:20:00 109 mm[Hg] Univer sity of pressure [facility] Diastolic blood 2022-01-11 14:20:00 71 mm[Hg] Unive rsity of pressure [facility] Heart rate 2022-01-11 14:20:00 76 /min [facility] [place] [facility] Body temperature 2022-01-11 14:20:00 36.89 Paige [facility] [place] [facility] Respiratory rate 2022-01-11 14:20:00 18 /min Univ [facility] [place] [facility] Body height 2022-01-11 14:20:00 162.6 cm [facility] Body weight 2022-01-11 14:20:00 61.236 kg [facility] BMI 2022-01-11 14:20:00 23.17 kg/m2 [facility] Procedures Procedure Date / Time Performed Performing Clinician [facility] e POCT TEST 2022-06-29 00:00:00 Tatiana Donald [facility] POCT TEST 2022-05-18 14:24:[address] [facility] CONSENT/REFUSAL FOR 2022-05-18 14:12:43 Doctor Unassigned, No Un [facility] DIAGNOSIS AND Name [facility] TREATMENT Encounters Start End Encounter Admission Attending Care Care Encounter Source Date/Time Date/Time Type Type Clinicians Facility Department ID 2022-06-29 2022-06-29 Outpatient R TATIANA DONALD [facility] B [id number] Univers 14:15:00 15:02:15 TATIANA DONALD [facility] 2022-06-29 2022-06-29 [facility] [id number] Univers 14:15:00 15:02:15 Tatiana DEGROOT [id number] i ty of Visit WOMEN'S [id number] [facility] [id number] [facility] 134 Branch 2022-05-18 2022-05-18 [facility] [id number] Univers 09:18:00 09:56:00 Mona RODRIGUEZ [id number] ity [facility] [id number] [facility] [id number] [facility] 084 Branch 2022-05-18 2022-05-18 Emergency X JOSE [facility] ERT [id number] Univers 09:18:00 09:56:00 MONA apodaca [facility] 2022-02-12 2022-02-12 Outpatient Deondre SCHMID [facility] [id number] Univers 13:15:00 13:15:00 TRACE beltrán [facility] 2022-01-11 2022-01-11 Outpatient ASTER LAGUNA [facility] [id number] Univers 09:00:00 09:43:54 ity of [facility] 2022-01-11 2022-01-11 Office Aster Hernandez [facility] [id number] Univers 09:00:00 09:43:54 Visit ZANE [id number] it y of [facility] [id number] [id number] [address] 2022-01-11 2022-01-11 Outpatient R ASTER HERNANDEZ [facility] [id number] Univers 09:00:00 09:00:00 ity of [facility] 2022-01-10 2022-01-10 Outpatient Deondre BLANKE [facility] [id number] Univers 13:15:00 13:15:00 TRACE caojeniffer o leigh ann [facility] 2022-01-10 2022-01-10 Outpatient Deondre SCHMID [facility] [id number] Univers 13:15:00 13:15:00 TRACE caojeniffer o [facility] 2022-01-09 2022-01-09 Office Jean Claude [facility] [id number] Univers 14:00:00 14:30:32 Visit Trace Mendosa [employer] [id number] ity of [facility] [id number] Saúl as MATERNAL [id number] [facility] ical & CHILD [address] [place] [address] 2022-01-09 2022-01-09 Outpatient Deondre SCHMID [facility] [id number] Univers 14:00:00 14:30:32 TRACE caojeniffer o leigh ann [facility] 2022-01-09 2022-01-09 Outpatient Deondre SCHMID [facility] [id number] Univers 14:00:00 14:30:32 TRACE apodaca o [facility] 2022-01-09 2022-01-09 Orders Doctor BEGRER [id number] Univers 00:00:00 00:00:00 Only Unassigned, JOSÉ MIGUEL [id number] ity of [place] [facility] [id number] Saúl as [id number] [place] [address] Branch 2021-11-14 2021-11-14 Outpatient R ASTER HERNANDEZ [facility] [id number] [facility] 09:30:00 09:30:00 [facility] Results Test Description Test Time Test Comments Results Result Comments Source POCT TEST 2022-07-12 20:09:00 Test Item Value Reference Range Interpretation Comme nts POCT PREG (test code = 1605) Negative Not recorded per staff On board controls acceptable with C Line (test Yes code = 3574) POCT PREG LOT # (test code = 3575) POCT PREG TEST DATE (test code = 3576) [facility] [id number] 14:24:00 Test Item Value Reference Range Interpretation Comments POCT PREG (test code = 1605) negative On board controls acceptable with present C Line (test code = 3574) POCT PREG LOT # (test code = 3575) [id number] POCT PREG TEST DATE (test 09-26-2023 code = 3576) Lab Interpretation (test code = Normal [id number]) [facility]
[2022-09-12 10:27] LABS: Urine Blood Negative (Negative); Urine Glucose Negative (Negative); Urine Protein Negative (Negative); Urine Specific Gravity 1.025 (1.005-1.030)
[2022-09-12 10:37] LABS: Urine Specific Gravity/Preg 1.025 (1.005-1.030)
[2022-09-12 11:45] LABS: Transitional Epithelial <5 /HPF (None Seen); Urine Bacteria None Seen /HPF (<20); Urine Mucus Slight /HPF (None Seen); Urine RBC <5 /HPF (None Seen)
[2022-09-12] MEDS ORDERED: KETOROLAC 30 MG/ML INJ ONE (11:45)
--- NOTE | 2022-09-12 12:04 | EDPHYS ---
Physician Documentation [facility] Name: Marie Gann Age: 22 yrs Sex: Female : 2000 Arrival Date: 09/12/2022 Time: 09:29 Bed 25 Private MD: ED Physician Binu Leonard HPI: 09/12 10:33 This 22 yrs old Female presents to ER via Ambulatory with complaints of Back kb Pain. 10:33 The symptoms are located in the right mid back and right low back. The patient has not kb recently seen a physician. 10:34 The patient presents with pain that is acute, with no known mechanism of injury. Onset: kb The symptoms/episode began/occurred yesterday. radiates intermittently to abd. Associated signs and symptoms: Pertinent positives: urinary frequency and urgency. The problem was sustained without known cause. Modifying factors: The patient symptoms are alleviated by nothing, the patient symptoms are aggravated by nothing. Severity of symptoms: At their worst the symptoms were moderate, in the emergency department the symptoms are unchanged. The patient has experienced similar episodes in the past, a few times. Historical: - Allergies: 09:38 No Known Allergies; ap3 - Home Meds: 09:38 None [Active]; ap3 - PMHx: 09:38 Ovarian cyst; seasonal allergies; ap3 - Immunization history:: Client reports having NOT received the Covid vaccine. Flu vaccine is up to date. - Social history:: Smoking status: Reported history of juuling and/or vaping. ROS: 10:32 Constitutional: Negative for fever, chills, and weight loss. kb 10:32 Back: Positive for of the right mid back and right low back. 10:32 : Positive for urinary symptoms, urinary frequency, burning with urination. 10:32 All other systems are negative. Exam: 10:33 Constitutional: This is a well developed, well nourished patient who is awake, alert, kb and in no acute distress. Head/Face: Normocephalic, atraumatic. ENT: Moist Mucous membranes Cardiovascular: Regular rate and rhythm with a normal S1 and S2. No gallops, murmurs, or rubs. No pulse deficits. Respiratory: Respirations even and unlabored. No increased work of breathing. Talking in full sentences Abdomen/GI: Soft, non-tender. No distention Skin: Warm, dry with normal turgor. Normal color. MS/ Extremity: Pulses equal, no cyanosis. Neurovascular intact. Full, normal range of motion. Neuro: Awake and alert, GCS 15, oriented to person, place, time, and situation. Moves all extremities. Normal gait. Psych: Awake, alert, with orientation to person, place and time. Behavior, mood, and affect are within normal limits. 10:33 Back: pain, that is moderate, of the right low back, CVA tenderness, that is mild, is noted on the right. Vital Signs: 09:37 BP 113 / 88; Pulse 73; Resp 17; Temp 97.0; Pulse Ox 100% ; Weight 56.7 kg; ap3 12:15 BP 117 / 79; Pulse 69; Resp 16; Pulse Ox 100% ; bp MDM: 09:33 Patient medically screened. 09:37 ED course: Patient is a 22-year-old female with no medical history who presents for kb right flank pain, urgency, frequency that started last night. Denies dysuria or hematuria. States she had this pain several times in the past but is always gone away on its own. Mild CVA tenderness to the right side. Right lower back tenderness. No vertebral tenderness. Will obtain urine sample to evaluate for UTI and hematuria.. 10:31 Differential diagnosis: Hydronephrosis Ureterolithiasis uti. Data reviewed: vital signs, nurses notes. 11:47 Test considered but Not performed: Labs: serum labs considered, but no abd kb pain/tenderness, no fever, nontoxic in appearance. Urine normal. CT: CT abd/pelvis to rule out stones or pyelonephritis considered, but urine normal. Counseling: I had a detailed discussion with the patient and/or guardian regarding: the historical points, exam findings, and any diagnostic results supporting the discharge/admit diagnosis, lab results, the need for outpatient follow up, a family practitioner, to return to the emergency department if symptoms worsen or persist or if there are any questions or concerns that arise at home. ED course: Discussed urinalysis with pt. Pt reports she has had back spasms in the past so believes this could be something like that . 09/12 10:25 Order name: Urine Microscopic Only kb 09/12 10:28 Order name: Urine Dipstick-Ancillary; Complete Time: 10:28 EDMS 09/12 10:31 Order name: Urine --Ancillary (enter results) bd 09/12 10:37 Order name: Urine --Ancillary; Complete Time: 10:38 EDMS 09/12 11:45 Order name: Urine Microscopic Only; Complete Time: 11:46 EDMS 09/12 10:25 Order name: Urine Dipstick-Ancillary (obtain specimen); Complete Time: 10:28 kb 09/12 10:25 Order name: Urine Test (obtain specimen); Complete Time: 10:28 kb Administered Medications: 11:44 Drug: Ketorolac 30 mg Route: IM; Site: right gluteus; bp 12:15 Follow up: Response: No adverse reaction; Pain is decreased bp Disposition: 18:57 Co-signature as Attending Physician, Binu Leonard MD. bs3 Disposition Summary: 09/12/22 12:03 Discharge Ordered Location: Home kb Condition: Stable kb Diagnosis - Low back pain kb Followup: kb - With: Emergency Department - When: As needed - Reason: Worsening of condition Followup: kb - With: Private Physician - When: 2 - 3 days - Reason: Recheck today's complaints, Continuance of care, Re-evaluation by your physician Discharge Instructions: - Discharge Summary Sheet kb - Musculoskeletal Pain kb Forms: - Medication Reconciliation Form kb - Thank You Letter kb - Antibiotic Education kb - Prescription Opioid Use kb - Work release form ss Prescriptions: - Diclofenac Sodium 75 mg Oral tablet,delayed release (DR/EC) - take 1 tablet by ORAL route 2 times per day As needed; 30 tablet; Refills: 0, kb Product Selection Permitted - orphenadrine citrate 100 mg Oral Tablet Sustained Release - take 1 tablet by ORAL route 2 times per day As needed; 20 tablet; Refills: 0, kb Product Selection Permitted Signatures: Dispatcher [employer] Bella Sharp FNP-C FNP-Ckb Peltier, Brian, RN RN Mary Kate Hayden RN RN ap3 Binu Leonard MD MD bs3
--- NOTE | 2022-09-12 12:04 | ER ---
Nurse's Notes [facility] Name: Marie Gann Age: 22 yrs Sex: Female : 2000 Arrival Date: 09/12/2022 Time: 09:29 Bed 25 Private MD: Diagnosis: Low back pain Presentation: 09/12 09:37 Chief complaint: Patient states: she has been having right lower flank pain that ap3 started yesterday and radiates to the front periodically but patient states it is not doing that right now. patient also reports urgency and frequency with urination. Coronavirus screen: At this time, the client does not indicate any symptoms associated with coronavirus-19. Ebola Screen: No symptoms or risks identified at this time. Initial Sepsis Screen: Does the patient meet any 2 criteria? No. Patient's initial sepsis screen is negative. Does the patient have a suspected source of infection? No. Patient's initial sepsis screen is negative. Risk Assessment: Do you want to hurt yourself or someone else? Patient reports no desire to harm self or others. Onset of symptoms was September 11, 2022. 09:37 Method Of Arrival: Ambulatory ap3 09:37 Acuity: AD 3 ap3 Triage Assessment: 09:39 General: Appears in no apparent distress. Behavior is calm, cooperative, appropriate ap3 for age. Pain: Complains of pain in right flank. Neuro: Level of Consciousness is awake, alert, obeys commands, Oriented to person, place, time, situation. Cardiovascular: Patient's skin is warm and dry. Respiratory: Airway is patent Respiratory effort is even, unlabored, Respiratory pattern is regular, symmetrical. : Reports urgency, urinary frequency. Historical: - Allergies: 09:38 No Known Allergies; ap3 - Home Meds: 09:38 None [Active]; ap3 - PMHx: 09:38 Ovarian cyst; seasonal allergies; ap3 - Immunization history:: Client reports having NOT received the Covid vaccine. Flu vaccine is up to date. - Social history:: Smoking status: Reported history of juuling and/or vaping. Screenin:[address] [facility] ED Fall Risk Assessment (Adult) History of falling in the last 3 months, ap3 including since admission No falls in past 3 months (0 pts). Abuse screen: Denies threats or abuse. Nutritional screening: No deficits noted. Tuberculosis screening: No symptoms or risk factors identified. Assessment: 10:30 General: SEE TRIAGE NOTE. bp 12:15 Reassessment: PT DC HOME. bp Vital Signs: 09:37 BP 113 / 88; Pulse 73; Resp 17; Temp 97.0; Pulse Ox 100% ; Weight 56.7 kg; ap3 12:15 BP 117 / 79; Pulse 69; Resp 16; Pulse Ox 100% ; bp ED Course: 09:29 Patient arrived in ED. mr 09:32 Bella Ansari FNP-C [facility]. kb 09:32 Binu Leonard MD is Attending Physician. kb 09:38 Triage completed. ap3 09:39 Arm band placed on left wrist. ap3 10:30 Patient has correct armband on for positive identification. Bed in low position. Call bp light in reach. Side rails up X2. 10:36 Ayden Barrientos, RN is Primary Nurse. bp 12:15 No provider procedures requiring assistance completed. Patient did not have IV access bp during this emergency room visit. Administered Medications: 11:44 Drug: Ketorolac 30 mg Route: IM; Site: right gluteus; bp 12:15 Follow up: Response: No adverse reaction; Pain is decreased bp Medication: 12:15 VIS not applicable for this client. bp Outcome: 12:03 Discharge ordered by MD. kb 12:15 Discharged to home ambulatory. bp 12:15 Condition: stable 12:15 Discharge instructions given to patient, Instructed on discharge instructions, follow up and referral plans. medication usage, Demonstrated understanding of instructions, follow-up care, medications, Prescriptions given X 2. 12:16 Patient left the ED. bp Signatures: Bella Ansari FNP-C FNP-Kami Suzanne Chavez mr Ayden Barrientos, RN RN bp Mary Kate Serrano RN RN ap3
== END 2022-09-12 12:16 | disposition home or self-care (01) ==
LOC: ER 09:13
DX: M54.50 Low back pain, unspecified (principal); R35.0 Frequency of micturition
CPT/HCPCS: 81003; 81015; 81025

== ENCOUNTER 2023-01-03 18:48 | Emergency (ER) | payer OTHER ==
--- OUTSIDE RECORDS SUMMARY | 2023-01-03 20:07 | XMS REPORT | Continuity of Care Document ---
:[address] [facility] t Address [address] [facility] [place] [address] Care Team Providers Name Role Phone [place] Primary Care Physician Unavailable MINH BOYER Attending Clinician Unavailable MINH BOYER Attending Clinician Unavailable TATIANA DONALD Attending Clinician Unavailable TATIANA DONALD Attending Clinician Unavailable Mona Garcia DO Attending Clinician OMNA GARCIA Attending Clinician Unavailable TRACE SCHMID Attending Clinician Unavailable Aster Hernandez MD Attending Clinician ASTER HERNANDEZ Attending Clinician Unavailable Trace Valdes Attending Clinician Doctor Unassigned, [place] Attending Clinician Unavailable Payers Payer Name Policy Type Policy Number Effective Date Expiration Date Magnus babb [place] [employer] [id number] 2022 00:00:00 Problems Condition Condition Condition Status [...] Univers level level 5-14 ity of 00:00: [place] 00 Medical Branch Allergies, Adverse Reactions, Alerts Allergy Allergy Status Severity Reaction(s) Onset Inactive Treating Comm ents Source Name Type Date Date Clinician NO KNOWN Drug Active Univers ALLERGIE Class ity of S [facility] Social History Social Habit Start Date Stop Date Quantity Comments Source History SDOH University o f Alcohol Frequency [place] [facility] History SDPR University o f Alcohol Std [place] [facility] Drinks Branch History SDPR University o f Alcohol Binge [place] [facility] Alcohol intake 2022-07-12 2022-07-12 .43 /d University 00:00:00 00:00:00 [facility] Exposure to 2022-06-19 2022-06-29 Not sure [facility] SARS-CoV-2 00:00:00 14:25:00 [facility] (event) [place] Tobacco use and 2022-06-29 2022-06-29 Smokeless tobacco Un iversity of exposure 00:00:00 00:00:00 non-user [facility] Alcohol Comment 2022-01-09 2022-01-09 socially Universit y of 00:00:00 00:00:00 [facility] Sex Assigned At [birth year] Universit y of 00:00:00 00:00:00 [facility] Smoking Status Start Date Stop Date Source Never smoked tobacco [facility] Medications Ordered Filled Start Stop Current Ordering Indication Dosage Frequency Signature Comments Components Source Medication Medication Date Date Medication? Clinician (SIG) Name Name norgestimat 2021-07 Yes [id number] 1{tbl} Take 1 Univers e-ethinyl 2-02 tablet [...] 05/18/22 at 1030, Routine ondansetron 2021-07 Yes [id number] 4mg Take 1 Univers 4 mg 0-21 tablet by ity of disintegrat 00:00: mouth [place] ing tablet 00 every 8 Medica l (eight) Branch hours as needed for Nausea and Vomiting (N/V). ondansetron 2021-07 Yes [id number] 4mg Take 1 Univers 4 mg 0-21 tablet by ity of disintegrat 00:00: mouth [place] ing tablet 00 every 8 Medica l (eight) Branch hours as needed for Nausea and Vomiting (N/V). norgestimat Yes [id number] 1{tbl} Take 1 Univers e-ethinyl 6-16 tablet by ity o f estradioL 00:00: mouth [place] 0.25-35 00 daily. Medical mg-mcg per Branch tablet norgestimat Yes [id number] 1{tbl} Take 1 Univers e-ethinyl 6-16 tablet by ity o f estradioL 00:00: mouth [place] 0.25-35 00 daily. Medical mg-mcg per Branch tablet norgestimat 2021- No [id number] 1{tbl} Take 1 Univers e-ethinyl 6-16 - tablet by ity of estradioL 00:00: 00:00 mouth [place] 0.25-35 00 :00 daily. Medical mg-mcg per Branch tablet Immunizations Ordered Filled Immunization Date Status Comments [facility] Branch e Immunization Name Name [facility] 2018-10-20 Completed University of 00:00:00 [facility] 2018-10-20 Completed University of 00:00:00 [facility] 2018-10-20 Completed University of 00:00:00 [facility] 2017-04-10 Completed University of 00:00:00 [facility] 2017-04-10 Completed University of 00:00:00 [facility] 2017-04-10 Completed University of 00:00:00 [facility] 2016-07-16 Completed University of 00:00:00 [facility] 2016-07-16 Completed University of 00:00:00 [facility] 2016-07-16 Completed University of 00:00:00 [facility] Vital Signs Vital Name Observation Time Observation Value Comments Source Systolic blood 2022-06-29 20:54:00 119 mm[Hg] Univer sity of pressure [facility] Diastolic blood 2022-06-29 20:54:00 82 mm[Hg] Unive rsity of pressure [place] [facility] Heart rate 2022-06-29 20:54:00 78 /min Universi ty of [place] [facility] Body temperature 2022-06-29 20:54:00 37.06 Paige Univ ersity of [place] [facility] Respiratory rate 2022-06-29 20:54:00 18 /min Univ ersity of [place] [facility] Body height 2022-06-29 20:54:00 160 cm Universi ty of [place] [facility] Body weight 2022-06-29 20:54:00 58.06 kg Universi ty of [place] [facility] BMI 2022-06-29 20:54:00 22.67 kg/m2 Universi ty of [facility] Branch Systolic blood 2022-05-18 14:17:00 106 mm[Hg] Univer sity of pressure [place] [facility] Diastolic blood 2022-05-18 14:17:00 80 mm[Hg] Unive rsity of pressure [place] [facility] Heart rate 2022-05-18 14:17:00 78 /min Universi ty of [place] [facility] Body temperature 2022-05-18 14:17:00 36.67 Paige Univ ersity of [place] [facility] Respiratory rate 2022-05-18 14:17:00 18 /min Univ ersity of [place] [facility] Body height 2022-05-18 14:17:00 160 cm Universi ty of [place] [facility] Body weight 2022-05-18 14:17:00 56.7 kg Universi ty of [place] [facility] BMI 2022-05-18 14:17:00 22.14 kg/m2 Universi ty of [facility] Branch Oxygen saturation in 2022-05-18 14:17:00 99 /min University Arterial blood by [facility] Pulse oximetry Branch Systolic blood 2022-01-11 14:20:00 109 mm[Hg] Univer sity of pressure [place] [facility] Diastolic blood 2022-01-11 14:20:00 71 mm[Hg] Unive rsity of pressure [place] [facility] Heart rate 2022-01-11 14:20:00 76 /min Universi ty of [place] [facility] [place] Body temperature 2022-01-11 14:20:00 36.89 Paige Univ ersity of [facility] Branch Respiratory rate 2022-01-11 14:20:00 18 /min Univ ersity of [place] [facility] Body height 2022-01-11 14:20:00 162.6 cm [facility] Body weight 2022-01-11 14:20:00 61.236 kg [facility] BMI 2022-01-11 14:20:00 23.17 kg/m2 [facility] Procedures Procedure Date / Time Performed Performing Clinician Alma e POCT TEST 2022-06-29 00:00:00 Tatiana [facility] POCT TEST 2022-05-18 14:24:00 Mona Garcia [facility] CONSENT/REFUSAL FOR 2022-05-18 14:12:43 Doctor Unassigned, No Un [facility] DIAGNOSIS AND Name [facility] TREATMENT Encounters Start End Encounter Admission Attending Care Care Encounter Source Date/Time Date/Time Type Type Clinicians Facility Department ID 2022-09-21 2022-09-21 Outpatient R TATIANA DONALD [facility] B [id number] Univers 13:00:00 13:00:00 TATIANA DONALD jeniffer [facility] [place] 2022-06-29 2022-06-29 Outpatient R TATIANA DONALD [facility] B [id number] Univers 14:15:00 15:02:[address] [facility] 2022-06-29 2022-06-29 Initial [facility] [id number] Univers 14:15:00 15:02:15 Tatiana DEGROOT [id number] i ty of Visit WOMEN'S 4.2.7.2.686 [facility] [id number] [facility] 134 Branch 2022-05-18 2022-05-18 Emergency Jose DECHANELLE [id number] Univers 09:18:00 09:56:00 Mona RODRIGUEZ [id number] ity of [place] [id number] [facility] [id number] [facility] 084 Branch 2022-05-18 2022-05-18 Emergency X JOSE DECHANELLE ERT [id number] Univers 09:18:00 09:56:00 MONA ity [facility] [place] 2022-02-12 2022-02-12 Outpatient R SCHMID, [facility] [id number] Univers 13:15:00 13:15:00 GENENDA ity o f [facility] 2022-01-11 2022-01-11 Office Aster Hernandez [facility] [id number] Univers 09:00:00 09:43:54 Visit ZANE [id number] it y of [facility] 4.2.7.2.686 [facility] [id number] [address] 2022-01-11 2022-01-11 Outpatient R ASTER HERNANDEZ [facility] [id number] Univers 09:00:00 09:43:54 ity [facility] [place] 2022-01-11 2022-01-11 Outpatient R ASTER HERNANDEZ [facility] [id number] Univers 09:00:00 09:00:00 ity [facility] [place] 2022-01-10 2022-01-10 Outpatient Deondre SCHMID [facility] [id number] Univers 13:15:00 13:15:00 TRACE apodaca o [facility] 2022-01-10 2022-01-10 Outpatient Deondre SCHMID [facility] [id number] Univers 13:15:00 13:15:00 DAVIDA paulie o [facility] 2022-01-09 2022-01-09 [email or web address] [id number] Univers 14:00:00 14:30:32 Visit Trace Mendosa [employer] V[employer] DIRECT[employer] [id number] ity of REGIONAL 4.2.7.2.686 Sa[facility] as MATERNAL [id number] Med ical & CHILD [address] [place] [address] 2022-01-09 2022-01-09 Outpatient Deondre SCHMID [facility] [id number] Univers 14:00:00 14:30:32 TRACE caojeniffer o [facility] 2022-01-09 2022-01-09 Outpatient Deondre SCHMID [facility] [id number] Univers 14:00:00 14:30:32 TRACE ity o [facility] 2022-01-09 2022-01-09 Orders Doctor CELINE [id number] Univers 00:00:00 00:00:00 Only Unassigned, JOSÉ MIGUEL 350.1.13.10 ity of [facility] 4.2.7.2.686 Saú[place] as [id number] [address] 2021-11-14 2021-11-14 Outpatient ASTER LAGUNA [facility] [id number] [facility] 09:30:00 09:30:00 [facility] Test Description Test Time Test Comments Results Result Comments Source POCT TEST 2022-07-12 20:09:00 Test Item Value Reference Range Interpretation Comme nts POCT PREG (test code = 1605) Negative Not recorded per staff On board controls acceptable with C Line (test Yes code = 3574) POCT PREG LOT # (test code = 3575) POCT PREG TEST DATE (test code = 3576) [id number] 14:24:00 Test Item Value Reference Range Interpretation Comments POCT PREG (test code = 1605) negative On board controls acceptable with present C Line (test code = 3574) POCT PREG LOT # (test code = 3575) [id number] POCT PREG TEST DATE (test 09-26-2023 code = 3576) Lab Interpretation (test code = Normal 11354-9) [facility]
[2023-01-03 20:22] LABS: Absolute Lymphocytes (CBC) 2.1 K/uL (0.7-4.9); Hematocrit 42.3 % (36.0-45.0); Lymphocytes % 30.8 % (15.3-44.8); MCV 88.5 fL (80-100); RBC Red Blood Cell Count 4.78 M/uL (3.86-4.86)
[2023-01-03 20:28] LABS: Specific Gravity 1.026 (1.005-1.030)
[2023-01-03 20:43] LABS: Potassium 3.5 mEq/L (3.5-5.1)
--- NOTE | 2023-01-03 20:57 | RAD REPORT ---
EXAM DESCRIPTION: US - Transvaginal OB - 01/03/2023 8:47 pm CLINICAL HISTORY: lower abdomen pain/low back pain COMPARISON: <Comparisons> FINDINGS: The uterus is normal size. Endometrial thickness is 5 mm. No IUP visualized. The maternal adnexa and ovaries are within normal limits. Normal Doppler blood flow was demonstrated to both ovaries. No pelvic ascites. IMPRESSION: No evidence of IUP. In the setting of a positive HCG level, this would be considered pre gnancy of unknown location. Advise follow-up serial HCG levels and pelvic sonography in 7-10 days.
[2023-01-03] MEDS ORDERED: ACETAMINOPHEN 325 MG TABLET ONE (21:22)
--- NOTE | 2023-01-03 22:16 | EDPHYS ---
Physician Documentation [facility] Name: Marie Gann Age: 22 yrs Sex: Female : 2000 Arrival Date: 01/03/2023 Time: 18:48 Bed 15 Private MD: ED Physician Nick Amador HPI: 01/03 19:20 This 22 yrs old Female presents to ER via Ambulatory with complaints of cp Abdominal Pain, Back Pain. 19:20 The patient presents with abdominal pain in the lower abdomen. cp 19:20 Onset: The symptoms/episode began/occurred 1 week(s) ago. cp 19:20 Associated signs and symptoms: Pertinent positives: vaginal bleeding, low back pain, cp Pertinent negatives: constipation, diarrhea, dysuria, fever. The symptoms are described as crampy. Patient reports positive test that was confirmed at local clinic. 19:20 Patient is a and LMP was November 2022. cp Historical: - Allergies: 18:59 No Known Allergies; ll1 - PMHx: 18:59 Ovarian cyst; seasonal allergies; ll1 - PSHx: 18:59 None; ll1 - Immunization history:: Client reports having NOT received the Covid vaccine. - Social history:: Smoking status: Patient/guardian denies using tobacco, Stopped _ months ago .1. ROS: 19:25 Constitutional: Negative for body aches, chills, fever, poor PO intake. cp 19:25 Eyes: Negative for injury, pain, redness, and discharge. cp 19:25 ENT: Negative for drainage from ear(s), ear pain, sore throat, difficulty swallowing, difficulty handling secretions. 19:25 Cardiovascular: Negative for chest pain, palpitations. 19:25 Respiratory: Negative for cough, shortness of breath, wheezing. 19:25 Abdomen/GI: Positive for abdominal pain, Negative for vomiting, diarrhea, constipation. 19:25 Back: Positive for pain at rest, of the low back. 19:25 : Positive for vaginal bleeding, Negative for urinary symptoms. 19:25 Neuro: Negative for altered mental status, dizziness, headache, weakness. 19:25 All other systems are negative. Exam: 19:30 Constitutional: The patient appears in no acute distress, alert, awake, comfortable, cp non-toxic, well developed, well nourished. 19:30 Head/Face: Normocephalic, atraumatic. cp 19:30 Eyes: Periorbital structures: appear normal, Conjunctiva: normal, no exudate, no injection, Sclera: no appreciated abnormality, Lids and lashes: appear normal, bilaterally. 19:30 ENT: External ear(s): are unremarkable, Nose: is normal, Mouth: Lips: moist, Oral mucosa: pink and intact, moist, Posterior pharynx: is normal, airway is patent, no erythema, no exudate. 19:30 Chest/axilla: Inspection: normal. 19:30 Cardiovascular: Rate: normal, Rhythm: regular. 19:30 Respiratory: the patient does not display signs of respiratory distress, Respirations: normal, no use of accessory muscles, no retractions, labored breathing, is not present, Breath sounds: are clear throughout, no decreased breath sounds, no stridor, no wheezing. 19:30 Abdomen/GI: Inspection: abdomen appears normal, Bowel sounds: active, all quadrants, Palpation: soft, in all quadrants, mild abdominal tenderness, in the right lower quadrant and left lower quadrant, rebound tenderness, is not appreciated, involuntary guarding, is not appreciated. 19:30 Back: pain, that is mild, of the low back area, ROM is normal. Vital Signs: 18:57 BP 121 / 97; Pulse 71; Resp 16; Temp 98.5; Pulse Ox 100% ; Weight 59.42 kg; Height 5 ll1 ft. 4 in. ; Pain 7/10; 19:15 BP 114 / 85; Pulse 69; Resp 18 S; Pulse Ox 100% on R/A; ha1 20:15 BP 114 / 66; Pulse 76; Resp 18 S; Pulse Ox 100% on R/A; ha1 22:15 BP 110 / 84; Pulse 69; Resp 18 S; Pulse Ox 100% ; ha1 18:57 Body Mass Index 22.49 (59.42 kg, 162.56 cm) ll1 18:57 Pain Scale: Adult ll1 MDM: 19:03 Patient medically screened. cp 20:00 Differential diagnosis: appendicitis, Ectopic , Ovarian Torsion, Pelvic cp Inflammatory Disease, Pyelonephritis, Tubal Ovarian Abcess, Ureterolithiasis, urinary tract infection. 22:15 Data reviewed: vital signs, nurses notes, lab test result(s), radiologic studies, cp ultrasound. 22:15 I considered the following discharge prescriptions or medication management in the cp emergency department Medications were administered in the Emergency Department. See MAR. Counseling: I had a detailed discussion with the patient and/or guardian regarding: the historical points, exam findings, and any diagnostic results supporting the discharge/admit diagnosis, lab results, radiology results, the need for outpatient follow up, an OB/Gyne specialist, to return to the emergency department if symptoms worsen or persist or if there are any questions or concerns that arise at home. 01/03 19:17 Order name: Abo/rh Typing; Complete Time: 20:51 cp 01/03 21:45 Interpretation: Reviewed. 01/03 19:17 Order name: Basic Metabolic Panel; Complete Time: 20:51 cp 01/03 21:45 Interpretation: Reviewed. 01/03 19:17 Order name: CBC with Diff; Complete Time: 20:51 cp 01/03 21:45 Interpretation: Normal except: PLT 456; MPV 7.0. 01/03 19:17 Order name: Test, Urine; Complete Time: 20:51 cp 01/03 19:17 Order name: Quantitative Hcg; Complete Time: 20:51 cp 01/03 21:45 Interpretation: Reviewed. 01/03 19:17 Order name: US Transvaginal Ob; Complete Time: 21:44 01/03 21:44 Interpretation: Report reviewed. 01/03 19:17 Order name: IV Saline Lock; Complete Time: 20:05 cp 01/03 19:17 Order name: Labs collected and sent; Complete Time: 20:05 01/03 19:17 Order name: NPO; Complete Time: 20:05 cp Administered Medications: 21:16 Drug: Acetaminophen PO 650 mg Route: PO; ha1 22:31 Follow up: Response: No adverse reaction ha1 Disposition: 01/04 20:57 Co-signature as Attending Physician, Nick Amador DO I was immediately available on-site ms3 in the Emergency Department for consultation in the care of the patient. Disposition Summary: 01/03/23 22:15 Discharge Ordered Location: Home cp Problem: new cp Symptoms: have improved cp Condition: Stable cp Diagnosis - Threatened cp Followup: cp - With: Private Physician - When: 48 Hours - Reason: Repeat Beta-HCG (48 Hours) Discharge Instructions: - Discharge Summary Sheet cp - Abdominal Pain During cp - Care cp - Threatened Miscarriage cp - Vaginal Bleeding During , First Trimester cp - First Trimester of cp - Activity Restriction During cp Forms: - Medication Reconciliation Form cp - Thank You Letter cp - Antibiotic Education cp - Prescription Opioid Use cp Signatures: Dispatcher [employer] EDMS Mike Bell PA PA cp Lewis, Lynsay, RN RN ll1 Nick mAador DO DO ms3 Jen Bradley RN RN ha1
--- NOTE | 2023-01-03 22:16 | ER ---
Nurse's Notes [facility] Name: Marie Gann Age: 22 yrs Sex: Female : 2000 Arrival Date: 01/03/2023 Time: 18:48 Bed 15 Private MD: Diagnosis: Threatened Presentation: 01/03 18:57 Chief complaint: Patient states: Low abdominal pain for 1 week. R lower back pain for 2 ll1 days. Had positive test this morning, about 5 weeks . G2, P1. Coronavirus screen: Vaccine status: Patient reports being unvaccinated. Client denies travel out of the [place] in the last 14 days. At this time, the client does not indicate any symptoms associated with coronavirus-19. Ebola Screen: Patient denies travel to an Ebola-affected area in the 21 days before illness onset. Initial Sepsis Screen: Does the patient meet any 2 criteria? No. Patient's initial sepsis screen is negative. Does the patient have a suspected source of infection? Yes: Acute abdominal pain. Risk Assessment: Do you want to hurt yourself or someone else? Patient reports no desire to harm self or others. Onset of symptoms was December 27, 2022. 18:57 Method Of Arrival: Ambulatory ll1 18:57 Acuity: AD 3 ll1 Triage Assessment: 19:00 General: Appears in no apparent distress. Behavior is calm, cooperative, appropriate ll1 for age. Pain: Complains of pain in pelvis Quality of pain is described as aching. GI: Reports lower abdominal pain, nausea, vomiting. : Reports vaginal bleeding that is light flow. Musculoskeletal: Reports pain in R lower back pain. Historical: - Allergies: 18:59 No Known Allergies; ll1 - PMHx: 18:59 Ovarian cyst; seasonal allergies; ll1 - PSHx: 18:59 None; ll1 - Immunization history:: Client reports having NOT received the Covid vaccine. - Social history:: Smoking status: Patient/guardian denies using tobacco, Stopped _ months ago .1. Screenin:20 [facility] ED Fall Risk Assessment (Adult) History of falling in the last 3 months, ha1 including since admission No falls in past 3 months (0 pts) Confusion or Disorientation No (0 pts) Intoxicated or Sedated No (0 pts) Impaired Gait No (0 pts) Mobility Assist Device Used No (0 pt) Score/Fall Risk Level 0 - 2 = Low Risk Oriented to surroundings, Maintained a safe environment, Educated pt \T\ family on fall prevention, incl call for assistance when getting out of bed. 20:05 Abuse screen: Denies threats or abuse. Denies injuries from another. Nutritional ha1 screening: No deficits noted. Tuberculosis screening: No symptoms or risk factors identified. Assessment: 19:20 General: Appears comfortable, Behavior is calm, cooperative. Pain: Complains of pain in ha1 pelvis Pain does not radiate. Pain currently is 6 out of 10 on a pain scale. Quality of pain is described as crampy. Neuro: Level of Consciousness is awake, alert, obeys commands, Oriented to person, place, time, situation. Cardiovascular: Patient's skin is warm and dry. Respiratory: Airway is patent Respiratory effort is even, unlabored, Respiratory pattern is regular, symmetrical. GI: Abdomen is flat, non-distended, Bowel sounds present X 4 quads. Abd is soft and non tender. : Reports vaginal bleeding that is bright red. Derm: Skin is pink, warm \T\ dry. Musculoskeletal: Circulation, motion, and sensation intact. 21:28 Reassessment: Patient and/or family updated on plan of care and expected duration. Pain ha1 level reassessed. Patient is alert, oriented x 3, equal unlabored respirations, skin warm/dry/pink. 22:19 Reassessment: Patient and/or family updated on plan of care and expected duration. Pain ha1 level reassessed. Patient is alert, oriented x 3, equal unlabored respirations, skin warm/dry/pink. Vital Signs: 18:57 BP 121 / 97; Pulse 71; Resp 16; Temp 98.5; Pulse Ox 100% ; Weight 59.42 kg; Height 5 ll1 ft. 4 in. ; Pain 7/10; 19:15 BP 114 / 85; Pulse 69; Resp 18 S; Pulse Ox 100% on R/A; ha1 20:15 BP 114 / 66; Pulse 76; Resp 18 S; Pulse Ox 100% on R/A; ha1 22:15 BP 110 / 84; Pulse 69; Resp 18 S; Pulse Ox 100% ; ha1 18:57 Body Mass Index 22.49 (59.42 kg, 162.56 cm) ll1 18:57 Pain Scale: Adult ll1 ED Course: 18:53 Patient arrived in ED. mr 18:55 Mike Bell PA is PHCP. cp 18:55 Nick Amador DO is Attending Physician. cp 18:59 Triage completed. ll1 19:00 Arm band placed on. ll1 19:20 Patient has correct armband on for positive identification. Placed in gown. Bed in low ha1 position. Call light in reach. Side rails up X 1. 19:21 Jen Bradley, RN is Primary Nurse. ha1 20:00 Inserted saline lock: 22 gauge in left antecubital area, using aseptic technique. Blood ha1 collected. 20:05 Abo/rh Typing Sent. ha1 20:05 Basic Metabolic Panel Sent. ha1 20:05 CBC with Diff Sent. ha1 20:05 Test, Urine Sent. ha1 20:05 Quantitative Hcg Sent. ha1 20:49 US Transvaginal Ob In Process Unspecified. EDMS 22:28 No provider procedures requiring assistance completed. IV discontinued, intact, ha1 bleeding controlled, No redness/swelling at site. Pressure dressing applied. Administered Medications: 21:16 Drug: Acetaminophen PO 650 mg Route: PO; ha1 22:31 Follow up: Response: No adverse reaction ha1 Medication: 22:29 VIS not applicable for this client. ha1 Outcome: 22:15 Discharge ordered by . cp 22:28 Discharged to home ambulatory. ha1 22:28 Condition: stable 22:28 Discharge instructions given to patient, Instructed on discharge instructions, follow up and referral plans. Demonstrated understanding of instructions, follow-up care. 22:32 Patient left the ED. ha1 Signatures: Dispatcher [employer] [facility] Suzanne Chavez mr Mike Bell PA PA cp Lewis, Lynsay, RN RN 1 Jen Bradley RN RN ha1
[2023-01-03 22:50] VITALS: TEMP 98.5; O2SAT 100
[2023-01-03 23:03] VITALS: BP 110/84
== END 2023-01-03 22:32 | disposition home or self-care (01) ==
LOC: ER 18:48
DX: O20.0 Threatened abortion (principal)
CPT/HCPCS: 36415; 76817; 80048; 81025; 84702; 85025; 86900; 86901; 99284

== ENCOUNTER 2023-01-04 12:54 | Emergency (ER) | payer OTHER ==
--- OUTSIDE RECORDS SUMMARY | 2023-01-04 12:58 | XMS REPORT | Continuity of Care Document ---
:2000 Author Organization [facility] t Address [address] [place] [address] Care Team Providers Name Role Phone ANJU CHESTER Primary Care Physician Unavailable MINH BOYER Attending Clinician Unavailable MINH BOYER Attending Clinician Unavailable TATIANA DONALD Attending Clinician Unavailable TATIANA DONALD Attending Clinician Unavailable MONA GARCIA Attending Clinician Unavailable Mona Garcia DO Attending Clinician TRACE SCHMID Attending Clinician Unavailable Aster Cardoso MD Attending Clinician ASTER CARDOSO Attending Clinician Unavailable Trace Valdes Attending Clinician Doctor Unassigned, [place] Attending Clinician Unavailable Payers Payer Name Policy Type Policy Number Effective Date Expiration Date Magnus babb [place] [employer] [id number] 2022 00:00:00 Problems Condition Condition Condition Status [...] Univers level level 5-14 ity of 00:00: [place] 00 Medical Branch Allergies, Adverse Reactions, Alerts Allergy Allergy Status Severity Reaction(s) Onset Inactive Treating Comm ents Source Name Type Date Date Clinician NO KNOWN Drug Active Univers ALLERGIE Class ity of S [facility] Social History Social Habit Start Date Stop Date Quantity Comments Source History SDOH University o f Alcohol Frequency [place] [facility] History SDMS University o f Alcohol Std [place] [facility] Drinks Branch History SDMS University o f Alcohol Binge [place] [facility] Alcohol intake 2022-07-12 2022-07-12 .43 /d University 00:00:00 00:00:00 [facility] Exposure to 2022-06-19 2022-06-29 Not sure [facility] SARS-CoV-2 00:00:00 14:25:00 [facility] (event) [place] Tobacco use and 2022-06-29 2022-06-29 Smokeless tobacco Un iversity of exposure 00:00:00 00:00:00 non-user [facility] Alcohol Comment 2022-01-09 2022-01-09 socially Universit y of 00:00:00 00:00:00 [facility] Sex Assigned At [birth year] Universit y of 00:00:00 00:00:00 [facility] Smoking Status Start Date Stop Date Source Never smoked tobacco [facility] Medications Ordered Filled Start Stop Current Ordering Indication Dosage Frequency Signature Comments Components Source Medication Medication Date Date Medication? Clinician (SIG) Name Name norgestimat 2021-07 Yes [id number] 1{tbl} Take 1 Univers e-ethinyl 2-02 tablet [...] 05/18/22 at 1030, Routine ondansetron 2021-07 Yes [id number] 4mg Take 1 Univers 4 mg 0-21 tablet by ity of disintegrat 00:00: mouth [place] ing tablet 00 every 8 Medica l (eight) Branch hours as needed for Nausea and Vomiting (N/V). ondansetron 2021-07 Yes [id number] 4mg Take 1 Univers 4 mg 0-21 tablet by ity of disintegrat 00:00: mouth [place] ing tablet 00 every 8 Medica l (eight) Branch hours as needed for Nausea and Vomiting (N/V). norgestimat Yes [id number] 1{tbl} Take 1 Univers e-ethinyl 6-16 tablet by ity o f estradioL 00:00: mouth [place] 0.25-35 00 daily. Medical mg-mcg per Branch tablet norgestimat Yes [id number] 1{tbl} Take 1 Univers e-ethinyl 6-16 tablet by ity o f estradioL 00:00: mouth [place] 0.25-35 00 daily. Medical mg-mcg per Branch tablet norgestimat 2021- No [id number] 1{tbl} Take 1 Univers e-ethinyl 6-16 - tablet by ity of estradioL 00:00: 00:00 mouth [place] 0.25-35 00 :00 daily. Medical mg-mcg per Branch tablet Immunizations Ordered Filled Immunization Date Status Comments [facility] [place] Immunization Name Name [facility] 2018-10-20 Completed University of 00:00:00 [facility] 2018-10-20 Completed University of 00:00:00 [facility] 2018-10-20 Completed University of 00:00:00 [facility] 2017-04-10 Completed University of 00:00:00 [facility] 2017-04-10 Completed University of 00:00:00 [facility] 2017-04-10 Completed University of 00:00:00 [facility] 2016-07-16 Completed University of 00:00:00 [facility] 2016-07-16 Completed University of 00:00:00 [facility] 2016-07-16 Completed University of 00:00:00 [facility] Vital Signs Vital Name Observation Time Observation Value Comments Source Systolic blood 2022-06-29 20:54:00 119 mm[Hg] Univer sity of pressure [facility] Diastolic blood 2022-06-29 20:54:00 82 mm[Hg] Unive rsity of pressure [place] [facility] Heart rate 2022-06-29 20:54:00 78 /min Universi ty of [place] [facility] Body temperature 2022-06-29 20:54:00 37.06 Paige Univ ersity of [place] [facility] Respiratory rate 2022-06-29 20:54:00 18 /min Univ ersity of [place] [facility] Body height 2022-06-29 20:54:00 160 cm Universi ty of [place] [facility] Body weight 2022-06-29 20:54:00 58.06 kg Universi ty of [place] [facility] BMI 2022-06-29 20:54:00 22.67 kg/m2 Universi ty of [facility] Branch Systolic blood 2022-05-18 14:17:00 106 mm[Hg] Univer sity of pressure [place] [facility] Diastolic blood 2022-05-18 14:17:00 80 mm[Hg] Unive rsity of pressure [place] [facility] Heart rate 2022-05-18 14:17:00 78 /min Universi ty of [place] [facility] Body temperature 2022-05-18 14:17:00 36.67 Paige Univ ersity of [place] [facility] Respiratory rate 2022-05-18 14:17:00 18 /min Univ ersity of [place] [facility] Body height 2022-05-18 14:17:00 160 cm Universi ty of [place] [facility] Body weight 2022-05-18 14:17:00 56.7 kg Universi ty of [place] [facility] BMI 2022-05-18 14:17:00 22.14 kg/m2 Universi ty of [facility] Branch Oxygen saturation in 2022-05-18 14:17:00 99 /min University Arterial blood by [facility] Pulse oximetry Branch Systolic blood 2022-01-11 14:20:00 109 mm[Hg] Univer sity of pressure [place] [facility] Diastolic blood 2022-01-11 14:20:00 71 mm[Hg] Unive rsity of pressure [place] [facility] Heart rate 2022-01-11 14:20:00 76 /min Universi ty of [place] [facility] [place] Body temperature 2022-01-11 14:20:00 36.89 Paige Univ ersity of [facility] Branch Respiratory rate 2022-01-11 14:20:00 18 /min Univ ersity of [place] [facility] Body height 2022-01-11 14:20:00 162.6 cm [facility] Body weight 2022-01-11 14:20:00 61.236 kg [facility] BMI 2022-01-11 14:20:00 23.17 kg/m2 [facility] Procedures Procedure Date / Time Performed Performing Clinician [place] POCT TEST 2022-06-29 00:00:00 Tatiana Donald [facility] POCT TEST 2022-05-18 14:24:00 Mona Garcia [facility] CONSENT/REFUSAL FOR 2022-05-18 14:12:43 Doctor Unassigned, No Un [facility] DIAGNOSIS AND Name [facility] TREATMENT Encounters Start End Encounter Admission Attending Care Care Encounter Source Date/Time Date/Time Type Type Clinicians Facility Department ID 2023-01-11 2023-01-11 Outpatient R MINH BOYER [facility] [id number] Univers 10:00:00 10:00:00 [facility] 2022-09-21 2022-09-21 Outpatient R TATIANA DONALD [facility] B [id number] Univers 13:00:00 13:00:00 [facility] 2022-06-29 2022-06-29 Outpatient R TATIANA DONALD [facility] B [id number] Univers 14:15:00 15:02:15 [facility]NA [facility]AL[facility] 2022-06-29 2022-06-[address] [facility] [id number] Univers 14:15:00 15:02:15 Tatiana DEGROOT [id number] i ty of Visit WOMEN'S [id number] [facility] [id number] [place] [address] Branch 2022-05-18 2022-05-18 Emergency X ORA GARCIA ERT [id number] Univers 09:18:00 09:56:00 MONA apodaca [facility] 2022-05-18 2022-05-18 Emergency ORA Garcia [id number] Univers 09:18:00 09:56:00 Mona Shraddha ANN MARIEJESUS [id number] ity [facility] [id number] [facility] [id number] [facility] 084 Branch 2022-02-12 2022-02-12 Outpatient Deondre SCHMID [facility] [id number] Univers 13:15:00 13:15:00 ROSHUNDA ity o f [facility] 2022-01-11 2022-01-11 Office Aster Cardoso [facility] [id number] Univers 09:00:00 09:43:54 Visit ZANE [id number] it y [facility] [id number] [place] [address] [id number] [facility] 134 Branch 2022-01-11 2022-01-11 Outpatient R ASTER CARDOSO [facility] [id number] Univers 09:00:00 09:43:54 ity of [facility] 2022-01-11 2022-01-11 Outpatient R ASTER CARDOSO [facility] [id number] Univers 09:00:00 09:00:00 ity of [facility] 2022-01-10 2022-01-10 Outpatient Deondre SCHMID [facility] [id number] Univers 13:15:00 13:15:00 GENENDA ity o f [facility] 2022-01-10 2022-01-10 Outpatient Deondre SCHMID [facility] [id number] Univers 13:15:00 13:15:00 ROSHUNDA ity o f [facility] 2022-01-09 2022-01-09 Office Sharmaine [facility] [id number] Univers 14:00:00 14:30:32 Visit Trace Mendosa [employer] [id number] ity of [facility] [id number] Saúl MATERNAL [id number] Med ical & CHILD [address] [place] [address] 2022-01-09 2022-01-09 Outpatient Deondre SCHMID [facility] [id number] Univers 14:00:00 14:30:32 ROSHUNDA ity o f [facility] 2022-01-09 2022-01-09 Outpatient R SHARMAINE [facility] [id number] Univers 14:00:00 14:30:32 TRACE ity o f [facility] 2022-01-09 2022-01-09 Orders Doctor CELINE [id number] Univers 00:00:00 00:00:00 Only Unassigned, JOÉS MIGUEL [id number] ity of [place] [facility] [id number] Saúl as [id number] [address] 2021-11-14 2021-11-14 Outpatient R ASTER CARDOSO [facility] [id number] Univers 09:30:00 09:30:00 [facility] Results Test Description Test Time Test Comments Results Result Comments Source POCT TEST 2022-07-12 20:09:00 Test Item Value Reference Range Interpretation Comme nts POCT PREG (test code = 1605) Negative Not recorded per staff On board controls acceptable with C Line (test Yes code = 3574) POCT PREG LOT # (test code = 3575) POCT PREG TEST DATE (test code = 3576) [id number] 14:24:00 Test Item Value Reference Range Interpretation Comments POCT PREG (test code = 1605) negative On board controls acceptable with present C Line (test code = 3574) POCT PREG LOT # (test code = 3575) [id number] POCT PREG TEST DATE (test 09-26-2023 code = 3576) Lab Interpretation (test code = Normal 40073-5) [facility]
[2023-01-04 14:11] LABS: Absolute Lymphocytes (CBC) 2.5 K/uL (0.7-4.9); Hematocrit 41.3 % (36.0-45.0); Lymphocytes % 35.5 % (15.3-44.8); MCV 89.1 fL (80-100); MPV 6.6 fL (7.6-11.3); RBC Red Blood Cell Count 4.64 M/uL (3.86-4.86)
--- NOTE | 2023-01-04 14:31 | ER ---
Nurse's Notes [facility] Name: Marie Gann Age: 22 yrs Sex: Female : 2000 Arrival Date: 01/04/2023 Time: 12:54 Bed 23 Private MD: Diagnosis: Threatened Presentation: 01/04 13:13 Chief complaint: Patient states: Seen in ER yesterday for back pain and discovered she ss was approximately 5 weeks . Pt reports that today after using the restroom that she passed a blood clot and is still having vaginal bleeding. Coronavirus screen: Client denies travel out of the [place] in the last 14 days. Ebola Screen: Patient denies exposure to infectious person. Patient denies travel to an Ebola-affected area in the 21 days before illness onset. Initial Sepsis Screen: Does the patient meet any 2 criteria? No. Patient's initial sepsis screen is negative. Does the patient have a suspected source of infection? No. Patient's initial sepsis screen is negative. Risk Assessment: Do you want to hurt yourself or someone else? Patient reports no desire to harm self or others. Onset of symptoms was January 04, 2023. 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 - Social history:: Smoking status: Patient denies any tobacco usage or history of. Screenin:40 [facility] ED Fall Risk Assessment (Adult) History of falling in the last 3 months, ss including since admission No falls in past 3 months (0 pts). Abuse screen: Denies threats or abuse. Denies injuries from another. Nutritional screening: No deficits noted. Tuberculosis screening: Never had TB. Assessment: 14:40 General: Appears in no apparent distress. comfortable. Pain: Complains of pain in ss suprapubic area Pain currently is 3 out of 10 on a pain scale. Neuro: Level of Consciousness is awake, alert, obeys commands. Cardiovascular: Capillary refill < 3 seconds is brisk in bilateral fingers. Respiratory: Airway is patent Respiratory effort is even, unlabored, Respiratory pattern is regular, symmetrical. : Denies burning with urination, urinary frequency. : Reports vaginal bleeding that is moderate flow, since this am. Derm: Skin is pink, warm \T\ dry. normal. Musculoskeletal: Circulation, motion, and sensation intact. Range of motion: intact in all extremities. Vital Signs: 13:13 BP 131 / 94; Pulse 76; Resp 14; Temp 97.8(TE); Pulse Ox 100% on R/A; Weight 59.42 kg; ss Height 5 ft. 4 in. ; Pain 3/10; 13:13 Body Mass Index 22.49 (59.42 kg, 162.56 cm) 13:13 Pain Scale: Adult ED Course: 12:55 Patient arrived in ED. ts1 13:02 Constantine Brown PA is PHCP. elvis 13:02 Nick Amador DO is Attending Physician. [facility] 13:15 Triage completed. ss 13:15 Arm band placed on right wrist. ss 14:40 Patient has correct armband on for positive identification. ss 14:40 Assist provider with pelvic exam: Set up pelvic tray. Performed by Constantine MARX Patient tolerated well. Patient did not have IV access during this emergency room visit. Administered Medications: No medications were administered Medication: 14:40 VIS not applicable for this client. ss Outcome: 14:31 Discharge ordered by . [facility] 14:40 Discharged to home ambulatory. 14:40 Condition: good 14:40 Discharge instructions given to patient, significant other, Instructed on discharge instructions, follow up and referral plans. Demonstrated understanding of instructions, follow-up care. 14:43 Patient left the ED. Signatures: Constantine Brown PA PA jmm Smirch, Shelby, RANDOLPH RN Pat Randall PAS PAS ts1
--- NOTE | 2023-01-04 14:31 | EDPHYS ---
Physician Documentation [facility] Name: Marie Gann Age: 22 yrs Sex: Female : 2000 Arrival Date: 01/04/2023 Time: 12:54 Bed 23 Private MD: ED Physician Nick Amador HPI: 01/04 14:26 This 22 yrs old Female presents to ER via Ambulatory with complaints of jmm Vaginal Bleeding, Abdominal Cramping. 14:26 The patient presents with vaginal bleeding that is. This is a 22 year old female with a jmm history of ovarian cysts, seasonal allergies, that presents to the ED with complaints of increased vaginal bleeding. Seen yesterday. Denies sob, weakness, fatigue. . 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 - Social history:: Smoking status: Patient denies any tobacco usage or history of. ROS: 14:26 Constitutional: Negative for fever, chills, and weight loss, Cardiovascular: Negative jmm for chest pain, palpitations, and edema, Respiratory: Negative for shortness of breath, cough, wheezing, and pleuritic chest pain. 14:26 : Positive for vaginal bleeding. 14:26 All other systems are negative. Exam: 14:26 Constitutional: This is a well developed, well nourished patient who is awake, alert, jmm and in no acute distress. Head/Face: atraumatic. Eyes: EOMI, no conjunctival erythema appreciated ENT: Moist Mucus Membranes Neck: Trachea midline, Supple Chest/axilla: Normal chest wall appearance and motion. Cardiovascular: Regular rate and rhythm. No edema appreciated Respiratory: Normal respirations, no respiratory distress appreciated Abdomen/GI: Non distended Back: Normal ROM 14:26 Skin: General appearance color normal MS/ Extremity: Moves all extremities, no obvious deformities appreciated, no edema noted to the lower extremities Neuro: Awake and alert Psych: Behavior is normal, Mood is normal, Patient is cooperative and pleasant 14:26 : Pelvic Exam: Speculum exam: mild bleeding, os that is closed. Vital Signs: 13:13 BP 131 / 94; Pulse 76; Resp 14; Temp 97.8(TE); Pulse Ox 100% on R/A; Weight 59.42 kg; ss Height 5 ft. 4 in. ; Pain 3/10; 13:13 Body Mass Index 22.49 (59.42 kg, 162.56 cm) 13:13 Pain Scale: Adult ss MDM: 13:16 Patient medically screened. [facility] 14:26 Differential diagnosis: Data reviewed: vital signs, nurses notes, lab test result(s). jm Counseling: I had a detailed discussion with the patient and/or guardian regarding: the historical points, exam findings, and any diagnostic results supporting the discharge/admit diagnosis, lab results, the need for outpatient follow up, to return to the emergency department if symptoms worsen or persist or if there are any questions or concerns that arise at home. ED course: Decreased quant hcg. Patient advised to follow up with obgyn for reevaluation. Patient is otherwise given strict return precautions. Patient understood and agrees with the plan of care. . 01/04 13:18 Order name: Quantitative Hcg; Complete Time: 14:24 [facility] 01/04 13:31 Order name: CBC with Diff; Complete Time: 14:17 [facility] 01/04 13:31 Order name: Pelvic Exam Setup; Complete Time: 13:59 [facility] Administered Medications: No medications were administered Disposition: 20:58 Co-signature as Attending Physician, Nick Amador DO I was immediately available on-site ms3 in the Emergency Department for consultation in the care of the patient. Disposition Summary: 01/04/23 14:31 Discharge Ordered Location: Home [facility] Condition: Stable jm Diagnosis - Threatened jm Followup: jmm - With: Private Physician - When: 2 - 3 days - Reason: Recheck today's complaints, Continuance of care, Re-evaluation by your physician Discharge Instructions: - Discharge Summary Sheet [facility] - Incomplete Miscarriage [facility] Forms: - Medication Reconciliation Form [facility] - Thank You Letter jmm - Antibiotic Education jmm - Prescription Opioid Use sadia Signatures: Dispatcher [employer] EDMS Constantine Brown PA PA jmm Smirch, Shelby, RN RN Nick Amador DO DO ms3
[2023-01-04 14:48] VITALS: BP 131/94; TEMP 97.8; O2SAT 100
== END 2023-01-04 14:43 | disposition home or self-care (01) ==
LOC: ER 12:54
DX: O20.0 Threatened abortion (principal)
CPT/HCPCS: 36415; 84702; 85025; 99283

== ENCOUNTER 2023-01-22 12:09 | Emergency (ER) | payer OTHER ==
--- OUTSIDE RECORDS SUMMARY | 2023-01-22 12:22 | XMS REPORT | Continuity of Care Document ---
:2000 Author Organization [facility] t Address [address] [facility] [address] [place] [address] Care Team Providers Name Role Phone [place] Primary Care Physician Unavailable MINH BOYER Attending Clinician Unavailable MINH BOYER Attending Clinician Unavailable WILIAM BRAND Attending Clinician Unavailable TATIANA DONALD Attending Clinician Unavailable TATIANA DONALD Attending Clinician Unavailable Mona Garcia DO Attending Clinician MONA GARCIA Attending Clinician Unavailable TRACE SCHMID Attending Clinician Unavailable Aster Hernandez MD Attending Clinician ASTER HERNANDEZ Attending Clinician Unavailable Trace Valdes Attending Clinician Doctor Unassigned, [place] Attending Clinician Unavailable Payers Payer Name Policy Type Policy Number Effective Date Expiration Date S skinny [place] [employer] [id number] 2022 00:00:00 Problems Condition Condition Condition Status [...] [address] Branch Low [facility] Low TSH Disease Active Univers level level 5-14 ity of 00:00: [address] Allergies, Adverse Reactions, Alerts Allergy Allergy Status Severity Reaction(s) Onset Inactive Treating Comm ents Source Name Type Date Date Clinician NO KNOWN Drug Active Univers ALLERGIE Class ity of S [facility] Social History Social Habit Start Date Stop Date Quantity Comments Source History SDOH University o f Alcohol Binge [place] [facility] History SDOH University o f Alcohol Frequency [place] [facility] History SDOH University o f Alcohol Std [place] [facility] [place] Alcohol intake 2022-07-12 2022-07-12 .43 /d University 00:00:00 00:00:[address] [facility] Exposure to 2022-06-19 2022-06-29 Not sure [facility] SARS-CoV-2 00:00:00 14:25:00 [facility] (event) [place] Tobacco use and 2022-06-29 2022-06-29 Smokeless tobacco Un iversity of exposure 00:00:00 00:00:[address] non-[address] [facility] Alcohol Comment 2022-01-09 2022-01-09 socially Universit y of 00:00:00 00:00:[address] [facility] Sex Assigned At [birth year] Universit y of 00:00:00 00:00:[address] [facility] Smoking Status Start Date Stop Date Source Never smoked tobacco [facility] Medications Ordered Filled Start Stop Current Ordering Indication Dosage Frequency Signature Comments Components Source Medication Medication Date Date Medication? Clinician (SIG) Name Name norgestimat 2021-07 Yes [id number] 1{tbl} Take 1 Univers e-ethinyl 2-02 tablet [...] 05/18/22 at 1030, Routine ondansetron 2021-07 Yes [id number] 4mg Take 1 Univers 4 mg 0-21 tablet by ity of disintegrat 00:00: mouth [place] ing tablet 00 every 8 Medica l (eight) Branch hours as needed for Nausea and Vomiting (N/V). ondansetron 2021-07 Yes [id number] 4mg Take 1 Univers 4 mg 0-21 tablet by ity of disintegrat 00:00: mouth [place] ing tablet 00 every 8 Medica l (eight) Branch hours as needed for Nausea and Vomiting (N/V). norgestimat Yes [id number] 1{tbl} Take 1 Univers e-ethinyl 6-16 tablet by ity o f estradioL 00:00: mouth [place] 0.25-35 00 daily. Medical mg-mcg per Branch tablet norgestimat Yes [id number] 1{tbl} Take 1 Univers e-ethinyl 6-16 tablet by ity o f estradioL 00:00: mouth [place] 0.25-35 00 daily. Medical mg-mcg per Branch tablet norgestimat 2021- No [id number] 1{tbl} Take 1 Univers e-ethinyl 6-16 - tablet by ity of estradioL 00:00: 00:00 mouth [place] 0.25-35 00 :00 daily. Medical mg-mcg per Branch tablet Immunizations Ordered Filled Immunization Date Status Comments [facility] e Immunization Name Name [facility] 2018-10-20 Completed University of 00:00:00 [facility] 2018-10-20 Completed University of 00:00:00 [facility] 2018-10-20 Completed University of 00:00:00 [facility] 2017-04-10 Completed University of 00:00:00 [facility] 2017-04-10 Completed University of 00:00:00 [facility] 2017-04-10 Completed University of 00:00:00 [facility] 2016-07-16 Completed University of 00:00:00 [facility] 2016-07-16 Completed University of 00:00:00 [facility] 2016-07-16 Completed University of 00:00:[address] [facility] Vital Signs Vital Name Observation Time Observation Value Comments Source Systolic blood 2022-06-29 20:54:00 119 mm[Hg] Univer sity of pressure [facility] Diastolic blood 2022-06-29 20:54:00 82 mm[Hg] Unive rsity of pressure [place] [facility] Heart rate 2022-06-29 20:54:00 78 /min [facility]i ty [facility] [place] [facility] Body temperature 2022-06-29 20:54:00 37.06 Paige Univ ersity of [place] [facility] Respiratory rate 2022-06-29 20:54:00 18 /min Univ ersity [facility] [place] [facility] Body height 2022-06-29 20:54:00 160 cm [facility] [place] [facility] Body weight 2022-06-29 20:54:00 58.06 kg [facility] [place] [facility] BMI 2022-06-29 20:54:00 22.67 kg/m2 [facility] [place] [facility] Systolic blood 2022-05-18 14:17:00 106 mm[Hg] Univer sity of pressure [place] [facility] Diastolic blood 2022-05-18 14:17:00 80 mm[Hg] Unive rsity of pressure [place] [facility] Heart rate 2022-05-18 14:17:00 78 /min [facility] [place] [facility] Body temperature 2022-05-18 14:17:00 36.67 Paige Univ [facility] [place] [facility] Respiratory rate 2022-05-18 14:17:00 18 /min Univ ersity [facility] [place] [facility] Body height 2022-05-18 14:17:00 160 cm [facility] [place] [facility] Body weight 2022-05-18 14:17:00 56.7 kg [facility] [place] [facility] BMI 2022-05-18 14:17:00 22.14 kg/m2 [facility] [place] [facility] Oxygen saturation in 2022-05-18 14:17:00 99 /min University Arterial blood by [facility] Pulse oximetry Branch Systolic blood 2022-01-11 14:20:00 109 mm[Hg] Univer sity of pressure [place] [facility] Diastolic blood 2022-01-11 14:20:00 71 mm[Hg] Unive rsity of pressure [place] [facility] Heart rate 2022-01-11 14:20:00 76 /min [facility] [place] [facility] Body temperature 2022-01-11 14:20:00 36.89 Paige Univ [facility] [place] [facility] Respiratory rate 2022-01-11 14:20:00 18 /min [facility] Body height 2022-01-11 14:20:00 162.6 cm [facility] Body weight 2022-01-11 14:20:00 61.236 kg [facility] BMI 2022-01-11 14:20:00 23.17 kg/m2 [facility] Procedures Procedure Date / Time Performed Performing Clinician Sour e POCT TEST 2022-06-29 00:00:[address] [facility] POCT TEST 2022-05-18 14:24:00 Mona Garcia [facility] CONSENT/REFUSAL FOR 2022-05-18 14:12:43 Doctor Unassigned, No Un [facility] DIAGNOSIS AND Name [facility] TREATMENT Encounters Start End Encounter Admission Attending Care Care Encounter Source Date/Time Date/Time Type Type Clinicians Facility Department ID 2023-01-24 2023-01-24 Outpatient R MINH BOYER [facility] [id number] Univers 15:00:00 15:00:00 MINH BOYER [facility] 2023-01-15 2023-01-15 Outpatient R CATHIE [facility] [id number] Univers 09:45:00 09:45:00 WILIAM [facility] 2023-01-11 2023-01-11 Outpatient R MINH BOYER [facility] U [facility] [id number] Univers 10:00:00 10:00:00 MINH BOYER [facility] 2022-09-21 2022-09-21 Outpatient R TATIANA DONALD [facility] B [id number] Univers 13:00:00 13:00:00 TATIANA DONALD [facility] 2022-06-29 2022-06-29 Outpatient R TATIANA DONALD [facility] B [id number] Univers 14:15:00 15:02:15 TATIANA DONALD [facility] 2022-06-29 2022-06-29 [facility] Casie ORCHANELLE CEMENT [id number] Univers 14:15:00 15:02:15 Tatiana DEGROOT [id number] i ty of Visit WOMEN'S [id number] [facility] [id number] [facility] [address] [place] 2022-05-18 2022-05-18 [facility] [id number] Univers 09:18:00 09:56:00 Mona Llanes ANN MARIEJESUS [id number] ity [facility] [id number] [facility] [id number] [facility] 084 Branch 2022-05-18 2022-05-18 Emergency X [facility] ERT [id number] Univers 09:18:00 09:56:00 MONA [facility] 2022-02-12 2022-02-12 Outpatient Deondre SCHMID [facility] [id number] Univers 13:15:00 13:15:00 TRACE [place] o [facility] 2022-01-11 2022-01-11 Office Aster Hernandez [facility] [id number] Univers 09:00:00 09:43:54 Visit ZANE [id number] it y of WOMEN'S [id number] [facility] [id number] [address] 2022-01-11 2022-01-11 Outpatient SATER LAGUNA [facility] [id number] Univers 09:00:00 09:43:54 ity [facility] 2022-01-11 2022-01-11 Outpatient ASTER LAGUNA [facility] [id number] Univers 09:00:00 09:00:00 ity [facility] 2022-01-10 2022-01-10 Outpatient Deondre SCHMID [facility] [id number] Univers 13:15:00 13:15:00 TRACE [place] o [facility] 2022-01-10 2022-01-10 Outpatient Deondre SCHMID [facility] [id number] Univers 13:15:00 13:15:00 TRACE saeed [facility] 2022-01-09 2022-01-09 Office Sharmaine [facility] [id number] Univers 14:00:00 14:30:32 Visit Trace Mendosa STAFFING CONSULTANT [id number] ity [facility] [id number] Saúl as MATERNAL [id number] Med ical & CHILD [address] [place] [address] 2022-01-09 2022-01-09 Outpatient R SHARMAINE [facility] [id number] Univers 14:00:00 14:30:32 GENEGEMINI [place] o leigh ann [facility] 2022-01-09 2022-01-09 Outpatient R SHARMAINE [facility] [id number] Univers 14:00:00 14:30:32 GENEGEMINI saeed [facility] 2022-01-09 2022-01-09 Orders Doctor CELINE [id number] Univers 00:00:00 00:00:00 Only Unassigned, JOSÉ MIGUEL [id number] ity of [place] [facility] [id number] Saúl as [id number] [address] 2021-11-14 2021-11-14 Outpatient R ASTER HERNANDEZ [facility] [id number] Univers 09:30:00 09:30:00 [facility] Results Test Description Test [...] TEST DATE (test code = 3576) [id number] 14:24:00 Test Item Value Reference Range Interpretation Comments POCT PREG (test code = 1605) negative On board controls acceptable with present C Line (test code = 3574) POCT PREG LOT # (test code = 3575) [id number] POCT PREG TEST DATE (test 09-26-2023 code = 3576) Lab Interpretation (test code = Normal 26005-2) [facility]
[2023-01-22 12:57] LABS: Specific Gravity 1.026 (1.005-1.030); Transitional Epithelial <5 /HPF (None Seen); Urine Bacteria 20-50 /HPF (<20); Urine Bilirubin NEGATIVE (Negative); Urine Blood Negative (Negative); Urine Clarity Extremely Turbid (Clear); Urine Color Yellow (Yellow); Urine Glucose NEGATIVE (Negative); Urine Mucus 3+ /HPF (None Seen); Urine Protein 1+ (Negative); Urine RBC 21-50 /HPF (None Seen); Urine Urobilinogen Normal (Normal); Urine pH 5.5 (5.0-7.0)
--- NOTE | 2023-01-22 13:08 | EDPHYS ---
Physician Documentation [facility] Name: Marie Gann Age: 22 yrs Sex: Female : 2000 Arrival Date: 01/22/2023 Time: 12:09 Bed 11 Private MD: ED Physician Binu Leonard HPI: 01/22 12:24 This 22 yrs old Female presents to ER via Ambulatory with complaints of Pain jmm With Urination. 12:24 Is a 22-year-old female presents emerged part with complaints of dysuria, increased jmm urgency, increased frequency, denies fever or vomiting. Denies vaginal bleeding. Denies vaginal discharge. Historical: - Allergies: 12:24 No Known Allergies; cm10 - Home Meds: 12:24 None [Active]; cm10 - PMHx: 12:24 Ovarian cyst; seasonal allergies; cm10 - PSHx: 12:24 None; cm10 - Immunization history:: Adult Immunizations unknown. - Social history:: Smoking status: Reported history of juuling and/or vaping. ROS: 12:24 Constitutional: Negative for fever, chills, and weight loss, Cardiovascular: Negative jmm for chest pain, palpitations, and edema, Respiratory: Negative for shortness of breath, cough, wheezing, and pleuritic chest pain. 12:24 : Positive for urinary symptoms. 12:24 All other systems are negative. Exam: 12:24 Constitutional: This is a well developed, well nourished patient who is awake, alert, jmm and in no acute distress. Head/Face: atraumatic. Eyes: EOMI, no conjunctival erythema appreciated ENT: Moist Mucus Membranes Neck: Trachea midline, Supple Chest/axilla: Normal chest wall appearance and motion. Cardiovascular: Regular rate and rhythm. No edema appreciated Respiratory: Normal respirations, no respiratory distress appreciated Abdomen/GI: Non distended Back: Normal ROM Skin: General appearance color normal MS/ Extremity: Moves all extremities, no obvious deformities appreciated, no edema noted to the lower extremities Neuro: Awake and alert Psych: Behavior is normal, Mood is normal, Patient is cooperative and pleasant Vital Signs: 12:23 BP 112 / 86 RA Sitting (auto/reg); Pulse 63; Resp 16; Temp 97.7(O); Pulse Ox 100% on cm10 R/A; Weight 59.87 kg (R); Height 5 ft. 4 in. (R); Pain 10; 12:23 Body Mass Index 22.66 (59.87 kg, 162.56 cm) cm10 12:23 Pain Scale: Adult cm10 MDM: 12:24 Differential diagnosis: UTI. [facility] 12:27 Patient medically screened. [facility] 13:08 Data reviewed: vital signs, nurses notes. [facility] 13:08 Counseling: I had a detailed discussion with the patient and/or guardian regarding: the [facility] historical points, exam findings, and any diagnostic results supporting the discharge/admit diagnosis, the need for outpatient follow up, to return to the emergency department if symptoms worsen or persist or if there are any questions or concerns that arise at home. ED course: Patient is alert nontoxic in appearance in the. Able tolerate p.o. I do not currently suspect pyelonephritis. Patient advised follow-up PCP and otherwise given strict return precautions. Patient understood agrees plan of care. 01/22 12:24 Order name: Urinalysis w/ reflexes; Complete Time: 13:07 [facility] 01/22 13:02 Order name: Urine Culture EDMS Administered Medications: No medications were administered Disposition Summary: 01/22/23 13:08 Discharge Ordered Location: Home [facility] Condition: Stable [facility] Diagnosis - UTI/ Urinary tract infection, site not specified [facility] Followup: [facility] - With: Private Physician - When: 2 - 3 days - Reason: Recheck today's complaints, Continuance of care, Re-evaluation by your physician Discharge Instructions: - Discharge Summary Sheet [facility] - Urinary Tract Infection, Adult [facility] Forms: - Medication Reconciliation Form [facility] - Thank You Letter [facility] - Antibiotic Education [facility] - Prescription Opioid Use [facility] - [email or web address] [facility] Prescriptions: - Desitin 40 % Topical paste - apply 1 application by TOPICAL route 1 to 2 times per day as needed for skin [facility] irritation; 1 unit; Refills: 0, Product Selection Permitted - cefpodoxime 200 mg Oral Tablet - take 1 tablet by ORAL route every 12 hours for 10 days with food; 20 tablet; m Refills: 0, Product Selection Permitted Signatures: [facility] Constantine Brown PA PA jmm Martinez, Clarissa, RN RN cm10 Corrections: (The following items were deleted from the chart) 12:24 PSHx: Unable to Obtain; cm10 cm10 : 12:24 PSHx: Unable to Obtain; cm10 cm10
--- NOTE | 2023-01-22 13:08 | ER ---
Nurse's Notes [facility] Name: Marie Gann Age: 22 yrs Sex: Female : 2000 Arrival Date: 01/22/2023 Time: 12:09 Bed 11 Private MD: Diagnosis: UTI/ Urinary tract infection, site not specified Presentation: 01/22 12:23 Chief complaint: Patient states: Pain with urination onset Saturday night. Pt also cm10 reports urinary frequency. Pt denies any fevers. Coronavirus screen: Vaccine status: Patient reports being unvaccinated. Client denies travel out of the [place] in the last 14 days. At this time, the client does not indicate any symptoms associated with coronavirus-19. Ebola Screen: Patient denies travel to an Ebola-affected area in the 21 days before illness onset. No symptoms or risks identified at this time. Initial Sepsis Screen: Does the patient meet any 2 criteria? No. Patient's initial sepsis screen is negative. Does the patient have a suspected source of infection? No. Patient's initial sepsis screen is negative. Risk Assessment: Do you want to hurt yourself or someone else? Patient reports no desire to harm self or others. Onset of symptoms was January 20, 2023. 12:23 Method Of Arrival: Ambulatory cm10 12:23 Acuity: AD 3 cm10 Triage Assessment: 12:25 General: Appears in no apparent distress. comfortable, Behavior is calm, cooperative. cm10 Pain: Complains of pain in back. Neuro: No deficits noted. Level of Consciousness is awake, alert, Oriented to person, place, time, situation. Respiratory: No deficits noted. Airway is patent Respiratory effort is even, unlabored, Respiratory pattern is regular, symmetrical. : Reports urgency, since Saturday urinary frequency, since saturday. Historical: - Allergies: 12:24 No Known Allergies; cm10 - Home Meds: 12:24 None [Active]; cm10 - PMHx: 12:24 Ovarian cyst; seasonal allergies; cm10 - PSHx: 12:24 None; cm10 - Immunization history:: Adult Immunizations unknown. - Social history:: Smoking status: Reported history of juuling and/or vaping. Screenin:28 [facility] ED Fall Risk Assessment (Adult) History of falling in the last 3 months, cm10 including since admission No falls in past 3 months (0 pts) Confusion or Disorientation No (0 pts) Intoxicated or Sedated No (0 pts) Impaired Gait No (0 pts) Mobility Assist Device Used No (0 pt) Altered Elimination No (0 pt) Score/Fall Risk Level 0 - 2 = Low Risk Oriented to surroundings, Maintained a safe environment. Abuse screen: Denies threats or abuse. Denies injuries from another. Nutritional screening: No deficits noted. Tuberculosis screening: No symptoms or risk factors identified. Assessment: 13:28 Reassessment: No changes from previously documented assessment. Patient and/or family cm10 updated on plan of care and expected duration. Pain level reassessed. Patient is alert, oriented x 3, equal unlabored respirations, skin warm/dry/pink. Vital Signs: 12:23 BP 112 / 86 RA Sitting (auto/reg); Pulse 63; Resp 16; Temp 97.7(O); Pulse Ox 100% on cm10 R/A; Weight 59.87 kg (R); Height 5 ft. 4 in. (R); Pain 10/10; 12:23 Body Mass Index 22.66 (59.87 kg, 162.56 cm) cm10 12:23 Pain Scale: Adult cm10 ED Course: 12:12 Patient arrived in ED. rg4 12:14 Constantine Brown PA is PHCP. [facility] 12:14 Binu Leonard MD is Attending Physician. [facility] 12:24 Triage completed. cm10 12:26 Arm band placed on Patient placed in an exam room, on a stretcher. cm10 12:34 Daisy Tavares, RN is Primary Nurse. cm10 12:59 Urinalysis w/ reflexes Sent. cm10 13:28 Patient has correct armband on for positive identification. Warm blanket given. cm10 13:28 No provider procedures requiring assistance completed. Patient did not have IV access cm10 during this emergency room visit. Administered Medications: No medications were administered Medication: 13:28 VIS not applicable for this client. cm10 Outcome: 13:08 Discharge ordered by . [facility] 13:29 Discharged to home ambulatory, with family. cm10 13:29 Condition: good 13:29 Discharge instructions given to patient, Instructed on discharge instructions, follow up and referral plans. medication usage, Demonstrated understanding of instructions, follow-up care, medications, Prescriptions given X 2. 13:29 Patient left the ED. cm10 Signatures: Constantine Brown PA PA jmm Garcia, Rubi rg4 Daisy Tavares RN RN cm10 Corrections: (The following items were deleted from the chart) 12:24 PSHx: Unable to Obtain; cm10 cm10 12:24 PSHx: Unable to Obtain; cm10 cm10
[2023-01-22 14:00] VITALS: BP 112/86; TEMP 97.7; O2SAT 100
== END 2023-01-22 13:29 | disposition home or self-care (01) ==
LOC: ER 12:09
DX: N39.0 Urinary tract infection, site not specified (principal)
CPT/HCPCS: 81001; 87086; 87088

== ENCOUNTER 2023-02-07 20:59 | Emergency (ER) | payer OTHER ==
--- OUTSIDE RECORDS SUMMARY | 2023-02-07 21:03 | XMS REPORT | Continuity of Care Document ---
:2000 Author Organization [facility] t Address [address] [place] [address] Care Team Providers Name Role Phone [place]STER [...] Unavailable Trace Valdes Attending Clinician Doctor Unassigned, [place] Attending Clinician Unavailable Payers Payer Name Policy Type Policy Number Effective Date Expiration Date S skinny [place] [employer] [id number] 2022 00:00:00 Problems Condition Condition Condition Status [...] [address] Branch Low [facility] Low TSH Disease Active Univers level level 5-14 ity of 00:00: [address] Allergies, Adverse Reactions, Alerts Allergy Allergy Status Severity Reaction(s) Onset Inactive Treating Comm ents Source Name Type Date Date Clinician NO KNOWN Drug Active Univers ALLERGIE Class ity of S [facility] Social History Social Habit Start Date Stop Date Quantity Comments Source History SDOH University o f Alcohol Frequency [place] [facility] History SDCT University o f Alcohol Std [place] [facility] Drinks [facility] History SDOH University o f Alcohol Binge [place] [facility] Alcohol intake 2022-07-12 2022-07-12 .43 /d University of 00:00:00 00:00:[address] [facility] Exposure to 2022-06-19 2022-06-29 Not sure [facility] SARS-CoV-2 00:00:00 14:25:00 [facility] (event) [place] Tobacco use and 2022-06-29 2022-06-29 Smokeless tobacco Un iversity of exposure 00:00:00 00:00:00 non-user [facility] Alcohol Comment 2022-01-09 2022-01-09 socially Universit y of 00:00:00 00:00:[address] [facility] Sex Assigned At [birth year] Universit y of 00:00:00 00:00:[address] [facility] Smoking Status Start Date Stop Date Source Never smoked tobacco [facility] Medications Ordered Filled Start Stop Current Ordering Indication Dosage Frequency Signature Comments Components Source Medication Medication Date Date Medication? Clinician (SIG) Name Name norgestimat 2021-07 Yes [id number] 1{tbl} Take 1 Univers e-ethinyl 2-02 tablet [...] 05/18/22 at 1030, Routine ondansetron 2021-07 Yes [id number] 4mg Take 1 Univers 4 mg 0-21 tablet by ity of disintegrat 00:00: mouth [place] ing tablet 00 every 8 Medica l (eight) Branch hours as needed for Nausea and Vomiting (N/V). ondansetron 2021-07 Yes [id number] 4mg Take 1 Univers 4 mg 0-21 tablet by ity of disintegrat 00:00: mouth [place] ing tablet 00 every 8 Medica l (eight) Branch hours as needed for Nausea and Vomiting (N/V). norgestimat Yes [id number] 1{tbl} Take 1 Univers e-ethinyl 6-16 tablet by ity o f estradioL 00:00: mouth [place] 0.25-35 00 daily. Medical mg-mcg per Branch tablet norgestimat Yes [id number] 1{tbl} Take 1 Univers e-ethinyl 6-16 tablet by ity o f estradioL 00:00: mouth [place] 0.25-35 00 daily. Medical mg-mcg per Branch tablet norgestimat 2021- No [id number] 1{tbl} Take 1 Univers e-ethinyl 6-16 - tablet by ity of estradioL 00:00: 00:00 mouth [place] 0.25-35 00 :00 daily. Medical mg-mcg per Branch tablet Immunizations Ordered Filled Immunization Date Status Comments Formerly [facility] e Immunization Name Name [facility] 2018-10-20 Completed University of 00:00:00 [facility] 2018-10-20 Completed University of 00:00:00 [facility] 2018-10-20 Completed University of 00:00:00 [facility] 2017-04-10 Completed University of 00:00:00 [facility] 2017-04-10 Completed University of 00:00:00 [facility] 2017-04-10 Completed University of 00:00:00 [facility] 2016-07-16 Completed University of 00:00:00 [facility] 2016-07-16 Completed University of 00:00:00 [facility] 2016-07-16 Completed University of 00:00:[address] [facility] Vital Signs Vital Name Observation Time Observation Value Comments Source Systolic blood 2022-06-29 20:54:00 119 mm[Hg] Univer sity of pressure [facility] Diastolic blood 2022-06-29 20:54:00 82 mm[Hg] Unive [...] 14:17:00 99 /min University Arterial blood by [facility] Pulse oximetry Branch Systolic blood 2022-01-11 14:20:00 109 mm[Hg] Univer sity of pressure [place] [facility] Diastolic blood 2022-01-11 14:20:00 71 mm[Hg] Unive rsity of pressure [place] [facility] Heart rate 2022-01-11 14:20:00 76 /min [facility]i ty [facility] [place] [facility] Body temperature 2022-01-11 14:20:00 36.89 Paige Univ ersity of [place] [facility] Respiratory rate 2022-01-11 14:20:00 18 /min [facility] Body height 2022-01-11 14:20:00 162.6 cm [facility] Body weight 2022-01-11 14:20:00 61.236 kg [facility] BMI 2022-01-11 14:20:00 23.17 kg/m2 [facility] Procedures Procedure Date / Time Performed Performing Clinician Mabel e POCT TEST 2022-06-29 00:00:00 Tatiana Donald [facility] POCT TEST 2022-05-18 14:24:00 Mona Garcia [facility] CONSENT/REFUSAL FOR 2022-05-18 14:12:43 Doctor Unassigned, No Un [facility] DIAGNOSIS AND Name [facility] TREATMENT Encounters Start End Encounter Admission Attending Care Care Encounter Source Date/Time Date/Time Type Type Clinicians Facility Department ID 2023-02-15 2023-02-15 Outpatient R POLO BOYERSOL [facility] [id number] Univers 09:00:00 09:00:00 MERLIN MINH [facility] 2023-01-24 2023-01-24 Outpatient R POLO BOYERSOL [facility] [id number] Univers 15:00:00 15:00:00 POLO BOYERSOL [facility] 2023-01-15 2023-01-15 Outpatient R CATHIE [facility] [id number] Univers 09:45:00 09:45:00 WILIAM [facility] 2023-01-11 2023-01-11 Outpatient R POLO BOYERSOL [facility] [id number] Univers 10:00:00 10:00:00 POLO BOYERSOL [facility] 2022-09-21 2022-09-21 Outpatient R TATIANA DONALD [facility] B [id number] Univers 13:00:00 13:00:00 TATIANA DONALD [facility] 2022-06-29 2022-06-29 Outpatient R TATIANA DONALD [facility] B [id number] Univers 14:15:00 15:02:15 TATIANA DONALD itjeniffer [facility] 2022-06-29 2022-06-29 Initial [facility] [id number] Univers 14:15:00 15:02:15 Tatiana DEGROOT [id number] i ty of Visit WOMEN'S [id number] [facility] [id number] [facility] [address] [place] 2022-05-18 2022-05-18 Emergency [facility] [id number] Univers 09:18:00 09:56:00 Mona Shraddha RODRIGUEZ [id number] ity [facility] [id number] [facility] [id number] [place] [id number] Branch 2022-05-18 2022-05-18 Emergency X [facility] ERT [id number] Univers 09:18:00 09:56:00 MONA [facility] 2022-02-12 2022-02-12 Outpatient Deondre SCHMID [facility] [id number] Univers 13:15:00 13:15:00 DAVIDA ity o f [facility] 2022-01-11 2022-01-11 Office Aster Cardoso [facility] [id number] Univers 09:00:00 09:43:54 Visit ZANE [id number] it y of WOMEN'S [id number] [facility] [id number] [address] 2022-01-11 2022-01-11 Outpatient R WALKER ASTER [facility] [id number] Univers 09:00:00 09:43:54 ity [facility] 2022-01-11 2022-01-11 Outpatient R WALKER ASTER [facility] [id number] Univers 09:00:00 09:00:00 ity [facility] 2022-01-10 2022-01-10 Outpatient Deondre SCHMID [facility] [id number] Univers 13:15:00 13:15:00 ROSHUNDA ity o f [facility] 2022-01-10 2022-01-10 Outpatient R SHARMAINE [facility] [id number] Univers 13:15:00 13:15:00 TRAEC saeed [facility] 2022-01-09 2022-01-09 Office Sharmaine VTCHANELLE [id number] Univers 14:00:00 14:30:32 Visit Wendygemini Deondre CERAMIST [id number] ity [facility] [id number] Saúl as MATERNAL [id number] [facility] ical & CHILD [address] [place] [address] 2022-01-09 2022-01-09 Outpatient R SHARMAINE [facility] [id number] Univers 14:00:00 14:30:32 TRACE saeed [facility] 2022-01-09 2022-01-09 Outpatient R SHARMAINE [facility] [id number] Univers 14:00:00 14:30:32 WENDYGEMINI saeed [facility] 2022-01-09 2022-01-09 Orders Doctor CELNIE [id number] Univers 00:00:00 00:00:00 Only Unassigned, JOSÉM IGUEL [id number] ity of [place] [id number] Saúl as [id number] [address] 2021-11-14 2021-11-14 Outpatient R ASTER CARDOSO [facility] [id number] Univers 09:30:00 09:30:00 [facility] [place] [facility] Results Test Description Test Time Test Comments Results Result Comments Source POCT TEST 2022-07-12 20:09:00 Test Item Value Reference Range Interpretation Comme nts POCT PREG (test code = 1605) Negative Not recorded per staff On board controls acceptable with C Line (test Yes code = 3574) POCT PREG LOT # (test code = 3575) POCT PREG TEST DATE (test code = 3576) [facility] [id number] 14:24:00 Test Item Value Reference Range Interpretation Comments POCT PREG (test code = 1605) negative On board controls acceptable with present C Line (test code = 3574) POCT PREG LOT # (test code = 3575) [id number] POCT PREG TEST DATE (test 09-26-2023 code = 3576) Lab Interpretation (test code = Normal 95360-8) [facility]
[2023-02-07 22:09] LABS: Absolute Lymphocytes (CBC) 2.4 K/uL (0.7-4.9); Hematocrit 41.9 % (36.0-45.0); MCV 87.9 fL (80-100); MPV 6.5 fL (7.6-11.3); RBC Red Blood Cell Count 4.77 M/uL (3.86-4.86)
[2023-02-07 22:10] LABS: Specific Gravity > 1.030 (1.005-1.030)
[2023-02-07 22:14] LABS: Specific Gravity > 1.030 (1.005-1.030); Urine Bacteria 20-50 /HPF (<20); Urine Bilirubin NEGATIVE (Negative); Urine Blood Negative (Negative); Urine Clarity Extremely Turbid (Clear); Urine Color Yellow (Yellow); Urine Crystals Unidentified Few /HPF (None Seen); Urine Glucose NEGATIVE (Negative); Urine Mucus 4+ /HPF (None Seen); Urine Protein 1+ (Negative); Urine Urobilinogen 3+ (Normal); Urine WBC Clump Rare /HPF (None Seen); Urine pH 6.5 (5.0-7.0)
--- NOTE | 2023-02-07 22:33 | RAD REPORT ---
EXAM DESCRIPTION: US - Transvaginal OB - 02/07/2023 10:15 pm CLINICAL HISTORY: ABD PAIN COMPARISON: Transvaginal OB dated 01/03/2023 FINDINGS: The uterus is normal sized. There is no IUP is seen in the endometrium. Both ovaries show normal Doppler blood flow. Adjacent to the right ovary is a 3.7 x [address] ructure. Trace free fluid in the pelvis. IMPRESSION: No IUP is seen. Rounded structure (3.7 cm) adjacent to the right ovary within the right adnexa could represent ectopi c if the HCG is elevated. Follow-up serial HCG level and repeat pelvic sonography in 48 krunal rs would be recommended.
--- NOTE | 2023-02-07 23:12 | EDPHYS ---
Physician Documentation [facility] Name: Marie Gann Age: 22 yrs Sex: Female : 2000 Arrival Date: 02/07/2023 Time: 20:59 Bed 19 Private MD: ED Physician Bernard Carroll HPI: 02/07 21:46 This 22 yrs old Female presents to ER via Unassigned with complaints of 5 rn WEEKS , ABD PAIN. 21:46 The patient presents to the emergency department with abdominal pain, of the suprapubic rn area. The estimated gestational age is 5 weeks. course: care: none, Leakage of Fluid: none appreciated, Ultrasound: the patient has not had an ultrasound. Previous pregnancies: in previous pregnancies patient has had. Associated signs and symptoms: Pertinent negatives: chest pain, fever, vaginal bleeding, vaginal discharge. The patient has experienced a previous episode. Pt report approx 4-5 weeks , having lower abd pain. No vaginal bleeding or urinary symptoms. Here today because had threatened in December, felt fine after, and not sure if this is same or new one. Mother told her since she was having lower abd cramps to come to ER. . COMPLIANCE ANALYST: 22:06 unknown lg3 Historical: - Allergies: 22:06 No Known Allergies; lg3 - Home Meds: 22:06 None [Active]; lg3 - PMHx: 22:06 Ovarian cyst; seasonal allergies; lg3 - PSHx: 22:06 None; lg3 - Immunization history:: Adult Immunizations up to date. - Social history:: Smoking status: Patient denies any tobacco usage or history of. Patient uses alcohol, occasionally. Patient/guardian denies using street drugs. - Family history:: not pertinent. - Hospitalizations: : No recent hospitalization is reported. ROS: 21:46 Constitutional: Negative for fever, chills, and weight loss, Cardiovascular: Negative rn for chest pain, palpitations, and edema, Respiratory: Negative for shortness of breath, cough, wheezing, and pleuritic chest pain, Abdomen/GI: Negative for nausea, vomiting, diarrhea, and constipation, Back: Negative for injury and pain, : Negative for injury, bleeding, discharge, and swelling, MS/Extremity: Negative for injury and deformity, Skin: Negative for injury, rash, and discoloration, Neuro: Negative for headache, weakness, numbness, tingling, and seizure. Exam: 21:46 Constitutional: This is a well developed, well nourished patient who is awake, alert, rn and in no acute distress. Ambulatory to room without difficulty or assistance. Cardiovascular: Regular rate and rhythm. No pulse deficits. Respiratory: No increased work of breathing, no retractions or nasal flaring. Abdomen/GI: soft, non-tender Skin: Warm, dry MS/ Extremity: Pulses equal, no cyanosis. Neuro: Awake and alert, GCS 15 Vital Signs: 22:01 BP 121 / 89; Pulse 82; Resp 19 S; Temp 99.9(O); Pulse Ox 100% on R/A; Weight 56.7 kg lg3 (R); Height 5 ft. 4 in. (R); 23:13 BP 117 / 81; Pulse 86; Resp 16; Pulse Ox 99% on R/A; jb4 02/08 00:20 BP 115 / 80; Pulse 77; Resp 16; Pulse Ox 98% on R/A; jb4 00:45 Temp 98.8; jb4 02/07 22:01 Body Mass Index 21.46 (56.70 kg, 162.56 cm) lg3 MDM: 02/07 21:08 Patient medically screened. rn 23:09 Differential diagnosis: ectopic , ovarian cyst, IUP, threatened . Data rn reviewed: vital signs, nurses notes, lab test result(s), radiologic studies, ultrasound, and as a result, I will admit patient. Consideration of Admission/Observation Patient was admitted/placed on observation. Escalation of care including admission/observation considered. Counseling: I had a detailed discussion with the patient and/or guardian regarding: the historical points, exam findings, and any diagnostic results supporting the discharge/admit diagnosis, lab results, radiology results, the need to transfer to another facility, [facility] does not immediately have the required specialist. ED course: Pt with possible ectopic per radiology, having abd pain, no vaginal bleeding, HCG almost 1000, will have to transfer for OB care and evaluation. . 02/07 21:15 Order name: Abo/rh Typing; Complete Time: 22:52 rn 02/07 21:15 Order name: Basic Metabolic Panel; Complete Time: 22:52 rn 02/07 21:15 Order name: CBC with Diff; Complete Time: 22:52 rn 02/07 21:15 Order name: Test, Urine; Complete Time: 22:16 rn 02/07 21:15 Order name: Quantitative Hcg; Complete Time: 22:52 rn 02/07 21:15 Order name: Urinalysis w/ reflexes; Complete Time: 22:16 rn 02/07 22:17 Order name: Urine Culture EDGA 02/07 21:15 Order name: US Transvaginal Ob; Complete Time: 22:52 rn 02/07 21:15 Order name: IV Saline Lock; Complete Time: 22:01 rn 02/07 21:15 Order name: Labs collected and sent; Complete Time: 22:01 rn 02/07 21:15 Order name: NPO; Complete Time: 22:01 rn Administered Medications: 02/08 00:20 Drug: Cephalexin PO 500 mg Route: PO; jb4 Disposition Summary: 02/07/23 23:11 [facility] Reason: Higher level of care rn Condition: Stable rn Problem: new rn Symptoms: are unchanged rn Accepting Physician: (02/08/23 00:48) jb4 Diagnosis - Other ectopic without intrauterine rn - UTI/ Urinary tract infection, site not specified rn Forms: - Medication Reconciliation Form rn - SBAR form rn Signatures: Dispatcher [employer] Bernard Augustine MD MD rn Bryson, James, RN RN jb4 Shannon Newton, RN RN lg3 Corrections: (The following items were deleted from the chart) 00:07 02/07 23:11 Dr. correa rn 02/08 00:48 00:07 rn jb4
--- NOTE | 2023-02-07 23:12 | ER ---
Nurse's Notes [facility] Name: Marie Gann Age: 22 yrs Sex: Female : 2000 Arrival Date: 02/07/2023 Time: 20:59 Bed 19 Private MD: Diagnosis: Other ectopic without intrauterine ;UTI/ Urinary tract infection, site not specified Presentation: 02/07 22:01 Chief complaint: Patient states: threatened miscarriage January 03. retested once lg3 bleeding stopped, still positive. retested again a few days after with negative result. presumed miscarriage at that point. tested again this past Saturday. saw OB. 4wk 4 days. now bleeding again, don't know if this is new or same from threatened miscarriage. Coronavirus screen: Client denies travel out of the [place] in the last 14 days. At this time, the client does not indicate any symptoms associated with coronavirus-19. Ebola Screen: No symptoms or risks identified at this time. Initial Sepsis Screen: Does the patient meet any 2 criteria? No. Patient's initial sepsis screen is negative. Does the patient have a suspected source of infection? No. Patient's initial sepsis screen is negative. Risk Assessment: Do you want to hurt yourself or someone else? Patient reports no desire to harm self or others. Onset of symptoms is unknown. 22:01 Method Of Arrival: Ambulatory lg3 22:01 Acuity: AD 3 lg3 Triage Assessment: 22:06 General: Appears in no apparent distress. comfortable, Behavior is calm, cooperative. lg3 Pain: Complains of pain in suprapubic area. EENT: No deficits noted. EENT: No signs and/or symptoms were reported regarding the EENT system. Neuro: No deficits noted. Snowden Agitation-Sedation Scale (RASS): 0 - Alert and Calm Level of Consciousness is awake, alert, obeys commands, Oriented to person, place, time, situation. Cardiovascular: No deficits noted. Respiratory: No deficits noted. Airway is patent Respiratory effort is even, unlabored, Respiratory pattern is regular, symmetrical. GI: No deficits noted. Abdomen is flat, non-distended, Reports cramping. : No deficits noted. No signs and/or symptoms were reported regarding the genitourinary system. Derm: No deficits noted. No signs and/or symptoms reported regarding the dermatologic system. Musculoskeletal: No deficits noted. No signs and/or symptoms reported regarding the musculoskeletal system. Circulation, motion, and sensation intact. Range of motion: intact in all extremities. 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 - Social history:: Smoking status: Patient denies any tobacco usage or history of. Patient uses alcohol, occasionally. Patient/guardian denies using street drugs. - Family history:: not pertinent. - Hospitalizations: : No recent hospitalization is reported. Screenin/14 00:47 [facility] ED Fall Risk Assessment (Adult) History of falling in the last 3 months, jb4 including since admission No falls in past 3 months (0 pts) Confusion or Disorientation No (0 pts) Score/Fall Risk Level 0 - 2 = Low Risk Oriented to surroundings, Maintained a safe environment. Abuse screen: Denies threats or abuse. Nutritional screening: No deficits noted. Tuberculosis screening: No symptoms or risk factors identified. Assessment: 02/07 23:13 General: Appears in no apparent distress. comfortable, Behavior is calm, cooperative, jb4 appropriate for age. Pain: Denies pain. Neuro: Level of Consciousness is awake, alert, obeys commands, Oriented to person, place, time, situation. Cardiovascular: Patient's skin is warm and dry. Respiratory: Airway is patent Respiratory effort is even, unlabored, Respiratory pattern is regular, symmetrical. GI: No signs and/or symptoms were reported involving the gastrointestinal system. : No signs and/or symptoms were reported regarding the genitourinary system. EENT: No signs and/or symptoms were reported regarding the EENT system. Derm: Skin is intact, Skin is pink, warm \T\ dry. Musculoskeletal: Circulation, motion, and sensation intact. Range of motion:. 02/08 00:45 Reassessment: Patient appears in no apparent distress at this time. Patient and/or jb4 family updated on plan of care and expected duration. Pain level reassessed. Patient is alert, oriented x 3, equal unlabored respirations, skin warm/dry/pink. Vital Signs: 02/07 22:01 BP 121 / 89; Pulse 82; Resp 19 S; Temp 99.9(O); Pulse Ox 100% on R/A; Weight 56.7 kg lg3 (R); Height 5 ft. 4 in. (R); 23:13 BP 117 / 81; Pulse 86; Resp 16; Pulse Ox 99% on R/A; jb4 02/08 00:20 BP 115 / 80; Pulse 77; Resp 16; Pulse Ox 98% on R/A; jb4 00:45 Temp 98.8; jb4 02/07 22:01 Body Mass Index 21.46 (56.70 kg, 162.56 cm) lg3 ED Course: 02/07 21:02 Patient arrived in ED. ag3 21:08 Bernard Carroll MD is Attending Physician. rn 22:01 Inserted saline lock: 20 gauge in right antecubital area, using aseptic technique. ah1 Blood collected. 22:01 Abo/rh Typing Sent. ah1 22:01 Basic Metabolic Panel Sent. ah1 22:01 CBC with Diff Sent. ah1 22:01 Test, Urine Sent. ah1 22:01 Quantitative Hcg Sent. ah1 22:01 Urinalysis w/ reflexes Sent. ah1 22:06 Triage completed. lg3 22:06 Arm band placed on right wrist. lg3 22:17 US Transvaginal Ob In Process Unspecified. EDMS 23:03 Initiated transfer with Tiff Slaughter at [facility]. rv1 02/08 00:07 Pt accepted to [facility] ER by Dr. Zheng. rv1 00:15 William Delgado, RN is Primary Nurse. jb4 00:47 No provider procedures requiring assistance completed. IV discontinued, intact, jb4 bleeding controlled, No redness/swelling at site. Pressure dressing applied. 00:47 Patient has correct armband on for positive identification. Bed in low position. Call jb4 light in reach. Side rails up X 1. Client placed on continuous cardiac and pulse oximetry monitoring. NIBP monitoring applied. Administered Medications: 00:20 Drug: Cephalexin PO 500 mg Route: PO; jb4 Outcome: 02/07 23:11 ER care complete, transfer ordered by . rn 02/08 00:47 Transferred by ground EMS to [facility], Transfer form jb4 completed. X-rays sent w/ patient. Condition: stable Discharge instructions given to patient, Instructed on the need for transfer, Demonstrated understanding of instructions. 00:48 Patient left the ED. jb4 Addendum: 02/10/2023 09:07 Addendum: Culture Results: Positive urine culture. Phone call Attempt #1 Pt h b transferred, faxed to [facility]. Signatures: Dispatcher [employer] EDMS Bernard Carroll MD MD rn Baxter, Heather RN William Kamara RN RN jb4 Diana Manuel Lacie, RN RN [id number] Kanwal Thompson 1 Selma Huang
[2023-02-08] MEDS ORDERED: CEPHALEXIN 250 MG CAP ONE (00:27)
[2023-02-08 04:27] VITALS: BP 115/80; O2SAT 98
[2023-02-08 04:29] VITALS: TEMP 98.8
== END 2023-02-08 00:48 | disposition short-term general hospital (02) ==
LOC: ER 20:59
DX: O00.80 Other ectopic pregnancy without intrauterine pregnancy (principal); N39.0 Urinary tract infection, site not specified
CPT/HCPCS: 36415; 76817; 80048; 81001; 81025; 84702; 85025; 86900; 86901; 87077; 87086; 87088; 87186; 99285

== ENCOUNTER 2023-04-17 08:33 | Emergency (ER) | payer OTHER ==
--- OUTSIDE RECORDS SUMMARY | 2023-04-17 08:37 | XMS REPORT | Continuity of Care Document ---
:2000 Author Organization [facility] t Address [address] [facility] [place] [address] Care Team Providers Name Role Phone Pawel Gayle Primary Care Physician MINH KRISHNAMURTHY Attending Clinician Unavailable MINH KRISHNAMURTHY Attending Clinician Unavailable Chelle Renteria RN Attending Clinician Unavailable Lab, Ang - Db Attending Clinician Unavailable Doctor Unassigned, [place] Attending Clinician Unavailable Mery Chairez Attending Clinician ESDRAS MC Attending Clinician Unavailable ESDRAS MC Attending Clinician Unavailable Cheyenne Meredith MD Attending Clinician [facility] Attending Clinician Unavailable Sonia Poon MD Attending Clinician SONIA POON Attending Clinician Unavailable Trimester, [facility] Res-1st Attending Clinician Unavailable ADISHA THORNE Attending Clinician Unavailable Daisha Thorne MD Attending Clinician WILIAM BRAND Attending Clinician Unavailable TATIANA DONALD Attending Clinician Unavailable TATIANA DONALD Attending Clinician Unavailable Mona Garcia DO Attending Clinician MONA GARCIA Attending Clinician Unavailable TRACE SCHMID Attending Clinician Unavailable Aster Hernandez MD Attending Clinician WALKER ASTER Attending Clinician Unavailable Trace Valdes Attending Clinician ESDRAS MC Admitting Clinician Unavailable DAISHA THORNE Admitting Clinician Unavailable Daisha Thorne MD Admitting Clinician Payers Payer Name Policy Type Policy Number Effective Date Expiration Date [place] babb [place] NICOLA CARRERA [id number] 2022 00:00:00 Problems Condition Condition Condition Status Onset Resolution Last Treating Co mments Source Name Details Category Date Date Treatment Clinician Date ASB ASB Disease Active Univers (asymptoma (asymptoma 04-04 it y of tic tic 00:00: [place] bacteriuri bacteriuri 00 Me dical a) a) Branch High-risk High-risk Disease Active Uni vers 04-04 ity of in first in first 00:00: [place] trimester trimester 00 [facility] Branch Rubella Rubella Disease Active Univers non-immune non-immune 04-04 it y of status, status, 00:00: [place] antepartum antepartum 00 Me dical Branch Screening Screening Disease Active Uni vers examinatio examinatio 6-14 it y of n for STD n for STD [place] ([place] (sexually 00 [facility] transmitte transmitte Br anch d disease) d [...] Active Univers ALLERGIE Class ity of S [facility] Social History Social Habit Start Date Stop Date Quantity Comments Source ASSERTION 2023-01-17 University of 00:00:00 [facility] Gender identity Universit y of [facility] Sexual orientation [facility] History SDOH University o f Alcohol Frequency [place] [facility] History SDOH University o f Alcohol Std Drinks [facility] History SDDC University o f Alcohol Binge [place] [facility] Alcohol intake 2023-04-04 2023-04-04 .43 /d University of 00:00:00 00:00:00 [facility] Exposure to 2022-06-19 2022-06-29 Not sure [facility] SARS-CoV-2 (event) 00:00:00 14:25:00 [facility] Tobacco use and 2022-06-29 2022-06-29 Smokeless Universit y of exposure 00:00:00 00:00:00 tobacco non-user [facility] History of Social 2022-01-09 2022-01-09 Univers ity of function 00:00:00 00:00:00 [facility] Alcohol Comment 2022-01-09 2022-01-09 socially Universit y of 00:00:00 00:00:00 [facility] Sex Assigned At [birth year] Universit y of 00:00:00 00:00:00 [facility] Smoking Status Start Date Stop Date Source Never smoked tobacco [facility] Medications Ordered Filled Start Stop Current Ordering Indication Dosage Frequency Signature Comments Components Source Medication Medication Date Date Medication? Clinician (SIG) Name Name ampicillin Yes [id number] 500mg Take 1 Univers 500 mg 9-07 capsule by ity of capsule 00:00: mouth [place] 00 every 6 Medical (six) Branch hours. ampicillin Yes [id number] 500mg Take 1 Univers 500 mg 9-07 capsule by ity of capsule 00:00: mouth [place] 00 every 6 Medical (six) Branch hours. metroNIDAZO Yes [id number] 500mg Take 1 Univers LE (FLAGYL) 9-07 tablet by ity of 500 mg 00:00: mouth [place] tablet 00 every 12 Medical (twelve) Branch hours. ampicillin Yes [id number] 500mg Take 1 Univers 500 mg 9-07 capsule by ity of capsule 00:00: mouth [place] 00 every 6 Medical (six) Branch hours. metroNIDAZO Yes [id number] 500mg Take 1 Univers LE (FLAGYL) 9-07 tablet by ity of 500 mg 00:00: mouth [place] tablet 00 every 12 Medical (twelve) Branch hours. ampicillin Yes [id number] 500mg Take 1 Univers 500 mg 9-07 capsule by ity of capsule 00:00: mouth [place] 00 every 6 Medical (six) Branch hours. metroNIDAZO 2023-0 Yes [id number] 500mg Take 1 Univers LE (FLAGYL) 9-07 tablet by ity of 500 mg 00:00: mouth [place] tablet 00 every 12 Medical (twelve) Branch hours. ampicillin 2023-0 Yes [id number] 500mg Take 1 Univers 500 mg 9-07 capsule by ity of capsule 00:00: mouth [place] 00 every 6 Medical (six) Branch hours. metroNIDAZO 2023-0 Yes [id number] 500mg Take 1 Univers LE (FLAGYL) 9-07 tablet by ity of 500 mg 00:00: mouth [place] tablet 00 every 12 Medical (twelve) Branch hours. ampicillin 2023-0 Yes [id number] 500mg Take 1 Univers 500 mg 9-07 capsule by ity of capsule 00:00: mouth [place] 00 every 6 Medical (six) Branch hours. metroNIDAZO 2023-0 Yes [id number] 500mg Take 1 Univers LE (FLAGYL) 9-07 tablet by ity of 500 mg 00:00: mouth [place] tablet 00 every 12 Medical (twelve) Branch hours. ampicillin 3-0 Yes [id number] 500mg Take 1 Univers 500 mg 9-07 capsule by ity of capsule 00:00: mouth [place] 00 every 6 Medical (six) Branch hours. metroNIDAZO 3-0 Yes [id number] 500mg Take 1 Univers LE (FLAGYL) 9-07 tablet by ity of 500 mg 00:00: mouth [place] tablet 00 every 12 Medical (twelve) Branch hours. metroNIDAZO 2023-0 3- Yes [id number] 500mg Take 1 Univers LE (FLAGYL) 8-11 08-17 tablet by it y of 500 mg 00:00: 04:59 mouth in [place] tablet 00 :00 the Medical morning Branch and 1 tablet in the evening. Do all this for 5 days. ondansetron 3-0 Yes [id number] 4mg Take 1 Univers (ZOFRAN) 4 8-10 tablet by ity of mg tablet 00:00: mouth [place] 00 every 8 Medical (eight) Branch hours as needed for Nausea and Vomiting (N/V). ondansetron 2023-0 Yes [id number] 4mg Take 1 Univers (ZOFRAN) 4 8-10 tablet by ity of mg tablet 00:00: mouth [place] 00 every 8 Medical (eight) Branch hours as needed for Nausea and Vomiting (N/V). ondansetron 2023-0 Yes [id number] 4mg Take 1 Univers (ZOFRAN) 4 8-10 tablet by ity of mg tablet 00:00: mouth [place] 00 every 8 Medical (eight) Branch hours as needed for Nausea and Vomiting (N/V). ondansetron 2023-0 Yes [id number] 4mg Take 1 Univers (ZOFRAN) 4 8-10 tablet by ity of mg tablet 00:00: mouth [place] 00 every 8 Medical (eight) Branch hours as needed for Nausea and Vomiting (N/V). ondansetron 2023-0 Yes [id number] 4mg Take 1 Univers (ZOFRAN) 4 8-10 tablet by ity of mg tablet 00:00: mouth [place] 00 every 8 Medical (eight) Branch hours as needed for Nausea and Vomiting (N/V). ondansetron 2023-0 Yes [id number] 4mg Take 1 Univers (ZOFRAN) 4 8-10 tablet by ity of mg tablet 00:00: mouth [place] 00 every 8 Medical (eight) Branch hours as needed for Nausea and Vomiting (N/V). ondansetron 2023-0 Yes [id number] 4mg Take 1 Univers (ZOFRAN) 4 8-10 tablet by ity of mg tablet 00:00: mouth [place] 00 every 8 Medical (eight) Branch hours as needed for Nausea and Vomiting (N/V). ondansetron 2023-0 Yes [id number] 4mg Take 1 Univers (ZOFRAN) 4 8-10 tablet by ity of mg tablet 00:00: mouth [place] 00 every 8 Medical (eight) Branch hours as needed for Nausea and Vomiting (N/V). ondansetron 2023-0 Yes [id number] 4mg Take 1 Univers (ZOFRAN) 4 8-10 tablet by ity of mg tablet 00:00: mouth [place] 00 every 8 Medical (eight) Branch hours as needed for Nausea and Vomiting (N/V). ondansetron 2023-0 Yes [id number] 4mg Take 1 Univers (ZOFRAN) 4 8-10 tablet by ity of mg tablet 00:00: mouth [place] 00 every 8 Medical (eight) Branch hours as needed for Nausea and Vomiting (N/V). ondansetron Yes [id number] 4mg Take 1 Univers (ZOFRAN) 4 8-10 tablet by ity of mg tablet 00:00: mouth [place] 00 every 8 Medical (eight) Branch hours as needed for Nausea and Vomiting (N/V). ondansetron Yes [id number] 4mg Take 1 Univers (ZOFRAN) 4 8-10 tablet by ity of mg tablet 00:00: mouth [place] 00 every 8 Medical (eight) Branch hours as needed for Nausea and Vomiting (N/V). NaCl 0.9% Yes 1000mL at 999 Univ ers (NS) IV 7-20 mL/hr, IV ity of infusion 01:00: [place]fusion, [place] 1,000 mL 00 CONTINUOUS Medic al , Starting Branch on Sat02/13/23 at 2000, Until Discontinu ed, Routine cefdinir 2022- No 300mg 300 mg, Univ ers (OMNICEF) 02-14 07-20 Oral, ity of capsule 300 00:00: 00:13 [place]CE, 1 [place] 00 :00 dose, On Medical Wed Branch 02/13/23 at 1900, FRANCISCO
Re ason for Anti-Infec tive: Documented Infection< br>Documen charlene Infection Site: Urine
D uration of Therapy: 7 days acetaminoph 2022- No 325mg 325 mg, U nivers en 02-13 Oral, ity of (TYLENOL) 20:30: 20:30 ONCE, 1 [place] tablet 325 00 :00 dose, On Medic al mg Sat Branch 02/13/23 at 1530, Routine 2022- Yes [id number] 1{capsu Take 1 Univers 26-iron 02-13- le} capsule by ity o f ps-folic-dh 00:00: 04:59 [place] a 29 mg 00 :00 the Medical iron- 1 morning Branch mg-200 mg for 30 per capsule days. 2022- Yes [id number] 1{capsu Take 1 Univers 26-iron 02-13- le} capsule by ity o f ps-folic-dh 00:00: 04:59 mouth [place] a 29 mg 00 :00 the Medical iron- 1 morning Branch mg-200 mg for 30 per capsule days. 2022- Yes [id number] 1{capsu Take 1 Univers 26-iron 02-13- le} capsule by ity o f ps-folic-dh 00:00: 04:59 mouth [place] a 29 mg 00 :00 the Medical iron- 1 morning Branch mg-200 mg for 30 per capsule days. 2022- Yes [id number] 1{capsu Take 1 Univers 26-iron -16 03- le} capsule by ity o f ps-folic-dh 00:00: 04:59 mouth [place] a 29 mg 00 :00 the Medical iron- 1 morning Branch mg-200 mg for 30 per capsule days. cefdinir 2022- Yes [id number] 300mg Take 1 U nivers 300 mg 02-13 capsule by ity of capsule 00:00: 04:59 mouth [place] 00 :00 every 12 Medical (twelve) Branch hours for 7 days. cefdinir 2022- Yes [id number] 300mg Take 1 U nivers 300 mg 02-13 capsule by ity of capsule 00:00: 04:59 mouth [place] 00 :00 every 12 Medical (twelve) Branch hours for 7 days. norgestimat 2021-07 Yes [id number] 1{tbl} Take 1 Univers e-ethinyl 2-02 tablet by ity o f estradioL 00:00: [place] 0.25-35 00 the Medical mg-mcg per morning. Branc h tablet norgestimat 2021-07 Yes [id number] 1{tbl} Take 1 Univers e-ethinyl 2-02 tablet by ity o f estradioL 00:00: mouth [place] 0.25-35 00 the Medical mg-mcg per morning. Branc h tablet norgestimat 2021-07 Yes [id number] 1{tbl} Take 1 Univers e-ethinyl 2-02 tablet by ity o f estradioL 00:00: mouth [place] 0.25-35 00 the Medical mg-mcg per morning. Branc h tablet norgestimat 2021-07 Yes [id number] 1{tbl} Take 1 Univers e-ethinyl 2-02 tablet by ity o f estradioL 00:00: mouth [place] 0.25-35 00 the Medical mg-mcg per morning. Branc h tablet norgestimat 2021-07 Yes [id number] 1{tbl} Take 1 Univers e-ethinyl 2-02 tablet by ity o f estradioL 00:00: mouth [place] 0.25-35 00 the Medical mg-mcg per morning. Branc h tablet norgestimat 2021-07 Yes [id number] 1{tbl} Take 1 Univers e-ethinyl 2-02 tablet by ity o f estradioL 00:00: mouth [place] 0.25-35 00 the Medical mg-mcg per morning. Branc h tablet norgestimat 2021-07 Yes [id number] 1{tbl} Take 1 Univers e-ethinyl 2-02 tablet by ity o f estradioL 00:00: mouth [place] 0.25-35 00 the Medical mg-mcg per morning. Branc h tablet norgestimat 2021-07 Yes [id number] 1{tbl} Take 1 Univers e-ethinyl 2-02 tablet by ity o f estradioL 00:00: mouth [place] 0.25-35 00 the Medical mg-mcg per morning. Branc h tablet norgestimat 2021-07 Yes [id number] 1{tbl} Take 1 Univers e-ethinyl 2-02 tablet by ity o f estradioL 00:00: mouth [place] 0.25-35 00 the Medical mg-mcg per morning. Branc h tablet norgestimat 2021-07 Yes [id number] 1{tbl} Take 1 Univers e-ethinyl 2-02 tablet by ity o f estradioL 00:00: mouth [place] 0.25-35 00 the Medical mg-mcg per morning. Branc h tablet norgestimat 2021-07 Yes [id number] 1{tbl} Take 1 Univers e-ethinyl 2-02 tablet by ity o f estradioL 00:00: mouth [place] 0.25-35 00 the Medical mg-mcg per morning. Branc h tablet norgestimat 2021-07 Yes [id number] 1{tbl} Take 1 Univers e-ethinyl 2-02 tablet by ity o f estradioL 00:00: mouth [place] 0.25-35 00 the Medical mg-mcg per morning. Branc h tablet norgestimat 2021-07 Yes [id number] 1{tbl} Take 1 Univers e-ethinyl 2-02 tablet by ity o f estradioL 00:00: mouth [place] 0.25-35 00 the Medical mg-mcg per morning. Branc h tablet norgestimat 2021-07 Yes [id number] 1{tbl} Take 1 Univers e-ethinyl 2-02 tablet by ity o f estradioL 00:00: mouth [place] 0.25-35 00 the Medical mg-mcg per morning. Branc h tablet norgestimat 2021-07 Yes [id number] 1{tbl} Take 1 Univers e-ethinyl 2-02 tablet by ity o f estradioL 00:00: mouth [place] 0.25-35 00 the Medical mg-mcg per morning. Branc h tablet norgestimat 2021-07 Yes [id number] 1{tbl} Take 1 Univers e-ethinyl 2-02 tablet by ity o f estradioL 00:00: mouth [place] 0.25-35 00 the Medical mg-mcg per morning. Branc h tablet norgestimat 2021-07 Yes [id number] 1{tbl} Take 1 Univers e-ethinyl 2-02 tablet by ity o f estradioL 00:00: mouth [place] 0.25-35 00 the Medical mg-mcg per morning. Branc h tablet norgestimat 2021-07- No [id number] 1{tbl} Take 1 Univers e-ethinyl 2-02 08-10 tablet by ity of estradioL 00:00: 00:00 mouth [place] 0.25-35 00 :00 the Medical mg-mcg per morning. Branc h tablet ondansetron 2021-07 No 4mg 4 mg, Univ ers (ZOFRAN-ODT 0-21 10-21 Oral, ity of ) 15:30: 14:23 ONCE, 1 [place] disintegrat 00 :00 dose, On Medi murali ing tablet Fri Branch 4 mg 10/21/22 at 1030, Routine ondansetron 2021-07 Yes [id number] 4mg Take 1 Univers 4 mg 0-21 tablet by ity of disintegrat 00:00: mouth [place] ing tablet 00 every 8 Medica l (eight) Branch hours as needed for Nausea and Vomiting (N/V). ondansetron 2021-07 Yes [id number] 4mg Take 1 Univers 4 mg 0-21 tablet by ity of disintegrat 00:00: mouth [place] ing tablet 00 every 8 Medica l (eight) Branch hours as needed for Nausea and Vomiting (N/V). ondansetron 2021-07 Yes [id number] 4mg Take 1 Univers 4 mg 0-21 tablet by ity of disintegrat 00:00: mouth [place] ing tablet 00 every 8 Medica l (eight) Branch hours as needed for Nausea and Vomiting (N/V). ondansetron 2021-07 Yes [id number] 4mg Take 1 Univers 4 mg 0-21 tablet by ity of disintegrat 00:00: mouth [place] ing tablet 00 every 8 Medica l (eight) Branch hours as needed for Nausea and Vomiting (N/V). ondansetron 2021-07 Yes [id number] 4mg Take 1 Univers 4 mg 0-21 tablet by ity of disintegrat 00:00: mouth [place] ing tablet 00 every 8 Medica l (eight) Branch hours as needed for Nausea and Vomiting (N/V). ondansetron 2021-07 Yes [id number] 4mg Take 1 Univers 4 mg 0-21 tablet by ity of disintegrat 00:00: mouth [place] ing tablet 00 every 8 Medica l (eight) Branch hours as needed for Nausea and Vomiting (N/V). ondansetron 2021-07 Yes [id number] 4mg Take 1 Univers 4 mg 0-21 tablet by ity of disintegrat 00:00: mouth [place] ing tablet 00 every 8 Medica l (eight) Branch hours as needed for Nausea and Vomiting (N/V). ondansetron 2021-07 Yes [id number] 4mg Take 1 Univers 4 mg 0-21 tablet by ity of disintegrat 00:00: mouth [place] ing tablet 00 every 8 Medica l (eight) Branch hours as needed for Nausea and Vomiting (N/V). ondansetron 2021-07 Yes [id number] 4mg Take 1 Univers 4 mg 0-21 tablet by ity of disintegrat 00:00: mouth [place] ing tablet 00 every 8 Medica l (eight) Branch hours as needed for Nausea and Vomiting (N/V). ondansetron 2021-07 Yes [id number] 4mg Take 1 Univers 4 mg 0-21 tablet by ity of disintegrat 00:00: mouth [place] ing tablet 00 every 8 Medica l (eight) Branch hours as needed for Nausea and Vomiting (N/V). ondansetron 2021-07 Yes [id number] 4mg Take 1 Univers 4 mg 0-21 tablet by ity of disintegrat 00:00: mouth [place] ing tablet 00 every 8 Medica l (eight) Branch hours as needed for Nausea and Vomiting (N/V). ondansetron 2021-07 Yes [id number] 4mg Take 1 Univers 4 mg 0-21 tablet by ity of disintegrat 00:00: mouth [place] ing tablet 00 every 8 Medica l (eight) Branch hours as needed for Nausea and Vomiting (N/V). ondansetron 2021-07 Yes [id number] 4mg Take 1 Univers 4 mg 0-21 tablet by ity of disintegrat 00:00: mouth [place] ing tablet 00 every 8 Medica l (eight) Branch hours as needed for Nausea and Vomiting (N/V). ondansetron 2021-07 Yes [id number] 4mg Take 1 Univers 4 mg 0-21 tablet by ity of disintegrat 00:00: mouth [place] ing tablet 00 every 8 Medica l (eight) Branch hours as needed for Nausea and Vomiting (N/V). ondansetron 2021-07 Yes [id number] 4mg Take 1 Univers 4 mg 0-21 tablet by ity of disintegrat 00:00: mouth [place] ing tablet 00 every 8 Medica l (eight) Branch hours as needed for Nausea and Vomiting (N/V). ondansetron 2021-07 Yes [id number] 4mg Take 1 Univers 4 mg 0-21 tablet by ity of disintegrat 00:00: mouth [place] ing tablet 00 every 8 Medica l (eight) Branch hours as needed for Nausea and Vomiting (N/V). ondansetron 2021-07 Yes [id number] 4mg Take 1 Univers 4 mg 0-21 tablet by ity of disintegrat 00:00: mouth [place] ing tablet 00 every 8 Medica l (eight) Branch hours as needed for Nausea and Vomiting (N/V). ondansetron 2021-07 Yes [id number] 4mg Take 1 Univers 4 mg 0-21 tablet by ity of disintegrat 00:00: mouth [place] ing tablet 00 every 8 Medica l (eight) Branch hours as needed for Nausea and Vomiting (N/V). ondansetron 2021-07- No [id number] 4mg Take 1 Univers 4 mg 0-21 08-10 tablet by ity of disintegrat 00:00: 00:00 [place] tablet 00 :00 every 8 Medica l (eight) Branch hours as needed for Nausea and Vomiting (N/V). norgestimat Yes [id number] 1{tbl} Take 1 Univers e-ethinyl 6-16 tablet by ity o f estradioL 00:00: mouth [place] 0.25-35 00 daily. Medical mg-mcg per Branch tablet norgestimat Yes [id number] 1{tbl} Take 1 Univers e-ethinyl 6-16 tablet by ity o f estradioL 00:00: mouth [place] 0.25-35 00 daily. Medical mg-mcg per Branch tablet norgestimat 2021- No [id number] 1{tbl} Take 1 Univers e-ethinyl 6-16 12-02 tablet by ity of estradioL 00:00: 00:00 mouth [place] 0.25-35 00 :00 daily. Medical mg-mcg per Branch tablet Vital Signs Vital Name Observation Time Observation Value Comments Source Systolic blood 2023-04-04 18:17:00 113 mm[Hg] [facility] Diastolic blood 2023-04-04 18:17:00 70 mm[Hg] [facility] Heart rate 2023-04-04 18:17:00 70 /min [facility] Body temperature 2023-04-04 18:17:00 36.72 Paige [facility] Respiratory rate 2023-04-04 18:17:00 16 /min [facility] Body height 2023-04-04 18:17:00 160 cm [facility] Body weight 2023-04-04 18:17:00 58.333 kg [facility] BMI 2023-04-04 18:17:00 22.78 kg/m2 [facility] Systolic blood 2023-03-07 20:27:00 110 mm[Hg] Univer sity of [facility] Diastolic blood 2023-03-07 20:27:00 73 mm[Hg] Unive rsity of pressure [facility] Heart rate 2023-03-07 20:27:00 64 /min [facility] Respiratory rate 2023-03-07 20:27:00 18 /min Univ ers[facility] Body height 2023-03-07 20:27:00 160 cm [facility] Body weight 2023-03-07 20:27:00 59.421 kg [facility] BMI 2023-03-07 20:27:00 23.21 kg/m2 [facility] Systolic blood 2023-02-14 01:00:00 120 mm[Hg] Univer sity of [facility] Diastolic blood 2023-02-14 01:00:00 79 mm[Hg] Unive rsity of [facility] Heart rate 2023-02-14 01:00:00 87 /min [facility] [place] [facility] Respiratory rate 2023-02-14 01:00:00 18 /min Univ ersity of [facility] Oxygen saturation in 2023-02-14 01:00:00 99 /min University Arterial blood by [facility] Pulse oximetry Branch Body temperature 2023-02-13 18:47:00 36.61 Paige Univ ersity of [facility] Branch Systolic blood 2023-02-11 15:26:00 122 mm[Hg] Univer sity of pressure [facility] Branch Diastolic blood 2023-02-11 15:26:00 81 mm[Hg] Unive rsity of [facility] [place] [facility] Heart rate 2023-02-11 15:26:00 75 /min Universi ty of [facility] Body temperature 2023-02-11 15:26:00 36.06 Paige Univ ersity of [facility] Branch Respiratory rate 2023-02-11 15:26:00 18 /min Univ ers[facility] [place] [facility] Body height 2023-02-11 15:26:00 160 cm [facility] Body weight 2023-02-11 15:26:00 58.06 kg [facility] [place] [facility] BMI 2023-02-11 15:26:00 22.67 kg/m2 [facility] Systolic blood 2023-02-08 09:30:00 113 mm[Hg] Univer [facility]ity of [facility] [place] [facility] Diastolic blood 2023-02-08 09:30:00 88 mm[Hg] Unive rsity of [facility] Heart rate 2023-02-08 09:30:00 79 /min [facility] Respiratory rate 2023-02-08 09:30:00 15 /min Univ ersity of [facility] Branch Oxygen saturation in 2023-02-08 09:30:00 95 /min University of Arterial blood by [facility] Pulse oximetry Branch Body temperature 2023-02-08 07:14:00 37.17 Paige [facility] Body weight 2023-02-08 07:14:00 58.968 kg [facility] BMI 2023-02-08 07:14:00 23.03 kg/m2 [facility] Systolic blood 2022-06-29 20:54:00 119 mm[Hg] Univer [facility]ity of [facility] Diastolic blood 2022-06-29 20:54:00 82 mm[Hg] Unive rsity of [facility] Heart rate 2022-06-29 20:54:00 78 /min [facility] Body temperature 2022-06-29 20:54:00 37.06 Paige Univ ers[facility] Respiratory rate 2022-06-29 20:54:00 18 /min Univ [facility] Body height 2022-06-29 20:54:00 160 cm [facility] Body weight 2022-06-29 20:54:00 58.06 kg [facility] [place] [facility] BMI 2022-06-29 20:54:00 22.67 kg/m2 [facility] [place] [facility] Systolic blood 2022-05-18 14:17:00 106 mm[Hg] Univer [facility]ity of [facility] [place] [facility] Diastolic blood 2022-05-18 14:17:00 80 mm[Hg] Unive rsity of pressure [facility] Heart rate 2022-05-18 14:17:00 78 /min Universi ty of [facility] Body temperature 2022-05-18 14:17:00 36.67 Paige Univ ersity of [facility] Respiratory rate 2022-05-18 14:17:00 18 /min Univ ersity of [facility] Body height 2022-05-18 14:17:00 160 cm Universi ty of [facility] Body weight 2022-05-18 14:17:00 56.7 kg Universi ty of [facility] BMI 2022-05-18 14:17:00 22.14 kg/m2 Universi ty of [facility] Oxygen saturation in 2022-05-18 14:17:00 99 /min [facility] Arterial blood by [facility] Pulse oximetry Branch Systolic blood 2022-01-11 14:20:00 109 mm[Hg] Univer sity of [facility] Diastolic blood 2022-01-11 14:20:00 71 mm[Hg] Unive rsity of [facility] Heart rate 2022-01-11 14:20:00 76 /min Universi ty of [facility] Body temperature 2022-01-11 14:20:00 36.89 [facility] Respiratory rate 2022-01-11 14:20:00 18 /min [facility] Body height 2022-01-11 14:20:00 162.6 cm Universi ty of [facility] Body weight 2022-01-11 14:20:00 61.236 kg Universi ty of [facility] BMI 2022-01-11 14:20:00 23.17 kg/m2 [facility] [place] [facility] Procedures Procedure Date / Time Performing Clinician Source Performed POCT URINALYSIS W/O 2023-04-04 00:00:00 Minh Krish[facility]ur[facility] [place] SPECIFIC GRAVITY [facility] US OB TRANSVAGINAL 2023-03-07 20:54:56 [facility] 2023-03-07 05:01:00 Doctor Unassigned, No [facility] Name [facility] POCT TEST 2023-03-07 00:00:00 Minh [facility] POCT URINALYSIS W/O 2023-03-07 00:00:00 Minh [facility]ur[facility] [place] SPECIFIC GRAVITY [facility] ABORH CONFIRMATION (LAB 2023-02-13 23:50:00 Esdras [facility] ONLY) [facility] URINALYSIS 2023-02-13 23:29:00 [facility]OL[facility]EL 2023-02-13 21:01[facility], K, CL, CO2, Medical [facility] GLUCOSE, BUN, CREATININE, CA) TOTAL BETA HCG ASSAY 2023-02-13 21:01:00 Kevin [facility] CBC WITH DIFF 2023-02-13 21:01:00 Brown, [facility] HB ABO GROUPING 2023-02-13 21:01:00 [facility] CONSENT/REFUSAL FOR 2023-02-13 18:38:52 Doctor Unassigned, No [facility] [place] DI[facility]NOS[facility] AND TREATMENT [facility] POCT TEST 2022-06-29 00:00:00 Tatiana Donald [facility] POCT TEST 2022-05-18 14:24:00 Mona Garcia [facility] CONSENT/REFUSAL FOR 2022-05-18 14:12:43 Doctor [facility], [facility] Encounters Start End Encounter Admission Attending Care Care Encounter Source Date/Time Date/Time Type Type Clinicians Facility Department ID 2023-05-02 2023-05-02 Outpatient R MINH KRISHNAMURTHY [facility] [id number] [facility] 11:45:00 11:45:00 MINH KRISHNAMURTHY [facility] 2023-04-15 2023-04-15 Telephone ORA Renteria 1.2.840.[id number] [facility] 00:00:00 00:00:00 Chelle ZANE 350.1.13.10 it y [place] [id number] [address] 2023-04-09 2023-04-09 [facility] 1.2.840.11 4 [id number] Univers 00:00:00 00:00:00 Minh nagy 350.1.13.10 it[place] [id number] [address] 2023-04-05 2023-04-05 Outpatient R [facility] [id number] Univers 11:30:00 12:02:21 [facility] 2023-04-05 2023-04-05 Afloat Cryptologic Manager Lab, Ang - [facility] 1.2.840.1 14 [id number] Univers 11:30:00 12:02:21 [facility] 350.1.13 .10 it[facility] 4.2.7.2.686 Saúl as CHRIS?BLEA [id number] [address] MEDICAL OFFICE BUILDING 2023-04-05 2023-04-05 Outpatient R [facility] [id number] Univers 10:15:00 10:15:00 ity of [facility] 2023-04-04 2023-04-04 Outpatient R [facility]ERTRANDPOLO [facility] [id number] Univers 13:15:00 13:36:58 BERTRANDPOLO AUGUSTESOL [facility] 2023-04-04 2023-04-04 Routine [facility] 1.2.840.114 [id number] Univers 13:15:00 13:36:58 Minh nagy 350.1.13.10 ity of [place] [id number] [address] 2023-04-04 2023-04-04 Case [facility] 1.2.840.114 10 [id number] Univers 00:00:00 00:00:00 Management s, Minh [place] 350.1.13.10 [place] [id number] [facility] [address] BUILDING 2023-04-04 2023-04-04 Telephone [facility] 1.2.840.11 4 [id number] Univers 00:00:00 00:00:00 s, Minh ZANE 350.1.13.10 [place] [id number] [address] 2023-04-02 2023-04-02 Afloat Cryptologic Manager Lab, Ang - Db [facility] 1.2.840.1 14 [id number] Univers 08:30:00 08:45:00 Visit [facility]rand[facility] 350.1.13 .10 ity of [place] 4.2.7.2.686 [place] CHRIS?BLEA [id number] [address] MEDICAL OFFICE BUILDING 2023-04-02 2023-04-02 Outpatient R BERTRANDPOLO [facility] U [facility] [id number] Univers 08:30:00 08:30:00 [facility], MINH ity of [facility] 2023-03-29 2023-03-29 Outpatient R [facility] [id number] Univers 16:00:00 16:00:00 ity of [facility] 2023-03-26 2023-03-26 Telephone [facility] 1.2.840.11 4 [id number] Univers 00:00:00 00:00:00 s, Minh ZANE 350.1.13.10 [place] [id number] [address] 2023-03-08 2023-03-08 Telephone [facility] 1.2.840.11 4 [id number] Univers 00:00:00 00:00:00 s, Minh ZANE 350.1.13.10 [place] [id number] [facility] [address] 2023-03-07 2023-03-07 Outpatient R MINH KRISHNAMURTHY [facility] U [facility] [id number] Univers 15:00:00 15:51:03 MINH [facility]URTHY [facility] 2023-03-07 2023-03-07 Initial Zaida [facility] 1.2.840.114 [id number] Univers 15:00:00 15:51:03 sMinh 350.1.13.10 ity of Visit [place] [id number] [facility] [address] 2023-03-07 2023-03-07 Orders Doctor CELINE 1.2.840.114 [id number] Univers 00:00:00 00:00:00 Only Unassigned, JOSÉ MIGUEL 350.1.13.10 ity of [place] [facility] 4.2.7.2.686 Salú as [id number] [facility] [address] 2023-02-25 2023-02-25 Outpatient R [facility] [id number] Univers 09:45:00 09:45:00 ity [facility] 2023-02-15 2023-02-15 Outpatient R MINH KRISHNAMURTHY [facility] U [facility] [id number] Univers 09:00:00 09:00:00 MINH [facility]UR[facility]Y [facility] 2023-02-14 2023-02-14 Outpatient R [facility] [id number] Univers 08:00:00 08:00:00 ity [facility] 2023-02-14 2023-02-14 Telephone CATHY Solares 1.2.840.114 10 [id number] Univers 00:00:00 00:00:00 Mery Y HEALTH 350.1.13.10 i ty of CL[place] [id number] [facility] [address] 2023-02-13 2023-02-13 Emergency X ESDRAS MC [facility] ERT [id number] Univers 13:50:00 20:24:00 ESDRAS MC [facility] 2023-02-13 2023-02-13 Emergency Dalmedo, TRAUMA 1.2.840.114 [id number] Univers 13:50:00 20:24:00 [facility] 350.1.13.10 [place] [id number] [facility] [address] Branch 2023-02-13 2023-02-13 Emergency X [facility] ERT [id number] Univers 13:01:00 13:14:00 ity of [facility] 2023-02-12 2023-02-12 Outpatient P [facility] [id number] Univers 08:45:00 08:45:00 ity of [facility] 2023-02-12 2023-02-12 Telephone Chaljub, UNIVERSIT 1.2.840.114 1 [id number] Univers 00:00:00 00:00:00 [facility] 350.1.13.10 i ty of CL[place] [id number] [facility] [address] 2023-02-12 2023-02-12 Telephone Chaljub, UNIVERSIT 1.2.840.114 1 [id number] Univers 00:00:00 00:00:00 [facility] 350.1.13.10 i ty of CL[place] [id number] [facility] [address] 2023-02-12 2023-02-12 Telephone Chaljub, UNIVERSIT 1.2.840.114 1 [id number] Univers 00:00:00 00:00:00 [facility] 350.1.13.10 i ty of CL[place]ICS [place] [id number] [facility] [address] 2023-02-11 2023-02-11 Afloat Cryptologic Manager [facility] UNIVERSIT 1.2.840.114 1 [id number] Univers 13:45:00 14:00:00 Visit Sonia Poon [facility] 350.1.13.10 ity of CL[place]ICS [place] [id number] [facility] [address] 2023-02-11 2023-02-11 Outpatient R MARYLOU [facility] [id number] Univers 10:15:00 11:12:25 [facility] 2023-02-11 2023-02-11 Routine Trimester, [facility] Res-1st UNIVERSIT 1.2.840.114 [id number] Univers 10:15:00 11:12:25 Sonia Poon Y HEALTH 350.1.13.10 ity of Visit CLINICS [place] [id number] [facility] [address] 2023-02-11 2023-02-11 Patient Chaljuchi, UNIVERSIT 1.2.840.114 [id number] Univers 00:00:00 00:00:00 Secure Msg [place] Y HEALTH 350.1.13.10 it[place] of CL[place] [id number] [address] 2023-02-08 2023-02-08 Emergency X FADUMO, [facility] ERT [id number] Univers 02:15:00 04:47:00 [facility] 2023-02-08 2023-02-08 Emergency Fadumo, TRAUMA 1.2.447.294 [id number] Univers 02:15:00 04:47:00 [facility] 350.1.13.10 [place] [id number] [facility] [address] 2023-01-24 2023-01-24 Outpatient R MINH KRISHNAMURTHY [facility] U TMB [id number] Univers 15:00:00 15:00:00 MINH KRISHNAMURTHY [facility] 2023-01-15 2023-01-15 Outpatient R CATHIE [facility] [id number] Univers 09:45:00 09:45:00 WILIAM [facility] 2023-01-11 2023-01-11 Outpatient R MINH KRISHNAMURTHY [facility] U TMB [id number] Univers 10:00:00 10:00:00 MINH KRISHNAMURTHY [facility] 2022-09-21 2022-09-21 Outpatient R TATIANA DONALD [facility] B [id number] Univers 13:00:00 13:00:00 TATIANA DONALD itjeniffer [facility] 2022-06-29 2022-06-29 Outpatient R TATIANA DONALD [facility] B [id number] Univers 14:15:00 15:02:15 TATIANA DONALD [facility] 2022-06-29 2022-06-29 Initial [facility] 1.2.840.114 [id number] Univers 14:15:00 15:02:15 Tatiana DEGROOT 350.1.13.10 i ty of Visit WOMEN'S 4.2.7.2.686 [facility] [id number] [facility] [address] 2022-05-18 2022-05-18 Emergency [facility] 1.2.840.114 [id number] Univers 09:18:00 09:56:00 Mona RODRIGUEZ 350.1.13.10 ity [facility] 4.2.7.2.686 [facility] [id number] [facility] [address] 2022-05-18 2022-05-18 Emergency X [facility] ERT [id number] Univers 09:18:00 09:56:00 MONA caojeniffer [facility] 2022-02-12 2022-02-12 Outpatient R SHARMAINE [facility] [id number] Univers 13:15:00 13:15:00 GENENDFannie ity o f [facility] 2022-01-11 2022-01-11 Office Viral Hernandezn [facility] 1.2.840.114 [id number] Univers 09:00:00 09:43:54 Visit ZANE 350.1.13.10 it y of WOMEN'S 4.2.7.2.686 [facility] [id number] [address] 2022-01-11 2022-01-11 Outpatient R ASTER HERNANDEZ [facility] [id number] Univers 09:00:00 09:43:54 ity of [facility] 2022-01-11 2022-01-11 Outpatient R WALKER ASTER [facility] [id number] Univers 09:00:00 09:00:00 ity of [facility] 2022-01-10 2022-01-10 Outpatient R SHARMAINE [facility] [id number] Univers 13:15:00 13:15:00 TRACE beltrán [facility] 2022-01-10 2022-01-10 Outpatient Deondre SCHMID [facility] [id number] Univers 13:15:00 13:15:00 TRACE saeed [facility] 2022-01-09 2022-01-09 Office Sharmaine [facility] 1.2.840.114 [id number] Univers 14:00:00 14:30:32 Visit Wendygemini R WOOD BUFFER 350.1.13.10 ity [facility] 4.2.7.2.686 Saúl as MATERNAL [id number] [facility] ical & CHILD [address] [place] [address] 2022-01-09 2022-01-09 Outpatient R SHARMAINE [facility] [id number] Univers 14:00:00 14:30:32 TRACE saeed [facility] 2022-01-09 2022-01-09 Outpatient Deondre SCHMID [facility] [id number] Univers 14:00:00 14:30:32 WENDYGEMINI saeed [facility] 2022-01-09 2022-01-09 Orders Doctor CELINE 1.2.840.114 [id number] Univers 00:00:00 00:00:00 Only Unassigned, JOSÉ MIGUEL 350.1.13.10 ity of [place] [facility] 4.2.7.2.686 Saúl as [id number] [address] 2021-11-14 2021-11-14 Outpatient R ASTER HERNANDEZ [facility] [id number] Univers 09:30:00 09:30:00 [facility] Results Test Description Test Time Test Comments Results Result Comments Source POCT URINALYSIS W/O SPECIFIC GRAVITY 2023-04-04 18:14:00 Test Item Value Reference Range Interpretation Comme nts POCT PH U (test code = 3254) n/a 5-8 POCT U LEUK EST (test code = 3263) n/a Negative - Negative POCT U NIT (test code = 3262) n/a Negative - Negative POCT U PROT (test code = 3259) negative Negative - Negative POCT U GLU (test code = 3256) negative Negative - Negative POCT U KETONE (test code = 3258) n/a Negative - Negative POCT U BLD (test code = 3257) n/a Negative - Negative [facility] URINALYSIS W/O SPECIFIC [id number] 18:14:00 Test Item Value Reference Range Interpretation Comments POCT PH U (test code = 3254) n/a 5-8 POCT U LEUK EST (test code = n/a Negative - Negative 3263) POCT U NIT (test code = 3262) n/a Negative - Negative POCT U PROT (test code = 3259) negative Negative - Negative POCT U GLU (test code = 3256) negative Negative - Negative POCT U KETONE (test code = 3258) n/a Negative - Negative POCT U BLD (test code = 3257) n/a Negative - Negative [facility] URINALYSIS W/O SPECIFIC [id number] 20:44:00 Test Item Value Reference Range Interpretation Comments POCT PH U (test code = 3254) N/A 5-8 POCT U LEUK EST (test code = N/A Negative - Negative 3263) POCT U NIT (test code = 3262) N/A Negative - Negative POCT U PROT (test code = 3259) Negative Negative - Negative POCT U GLU (test code = 3256) Negative Negative - Negative POCT U KETONE (test code = 3258) N/A Negative - Negative POCT U BLD (test code = 3257) N/A Negative - Negative [facility] [id number] 20:43:00 Test Item Value Reference Range Interpretation Comments POCT PREG (test code = 1605) Positive On board controls acceptable with C Yes Line (test code = 3574) POCT PREG LOT # (test code = 3575) POCT PREG TEST DATE (test code = 3576) [facility] Confirm[facility] (Lab Only)2023-02-13 23:59:00 Test Item Value Reference Range Interpretation Comments ABO & RH (test code = 20) O Positive [facility] BETA HCG [id number] 22:07:06 Test Item Value Reference Range Interpretation Comments BETA HCG (test 19834.00 See_Comment [Automated m essage] code = The system LIFEMODELER [id number]) generated this result transmit charlene reference range : Non- fe male and male patien ts: <5 mIU/mL. The reference range was not used to interpret this result as normal/abnormal . SONALI (test code Gestational Age ? ? = SONALI) ?Range (mIU/mL) 1-10 ?Weeks ?25-80314756-57 Weeks ?29925-31141334-76 Weeks ?4192-55414392-71 Weeks ?1531-721665 Biotin has been reported to cause a negative bias, interpret results relative to patient's use of biotin. [facility]OL[facility] (NA, K, CL, CO2, GLUCOSE, BUN, CREATININE, CA)2023-02-13 21:29:48 Test Item Value Reference Range Interpretation Comments NA (test code = 136 mmol/L 135-145 4409394747) K (test code = 3.9 mmol/L 3.5-5.0 3015001426) CL (test code = 107 mmol/L 98-108 5214897797) CO2 TOTAL (test code = 23 mmol/L 23-31 3045202529) AGAP (test code = 6 2-16 3696235992) BUN (test code = 9 mg/dL 7-23 2631784226) GLUCOSE (test code = 80 mg/dL 70-110 5516358574) CREATININE (test code = 0.45 mg/dL 0.50-1.04 L 3797566267) CALCIUM (test code = 8.9 mg/dL 8.6-10.6 2821500782) eGFR (test code = 175.9 mL/min/1.73m2 2382542707) SONALI (test code = SONALI) Association of Glomerular Filtration Rate (GFR) and Staging of Kidney Disease* + --+ --+ ------+| GFR (mL/min/1.73 m2) ?| With Kidney Damage ?| ?Without Kidney Damage+ --------+ --------+ +| ?>90 ?| ?Stage one ?| ? Normal ?+ ---+ ---+ -------+| ?60-89 ?| ?Stage two ?| ? Decreased GFR ? + --+ --+ ------+| ?30-59 ?| ?Stage three ?| ? Stage three ? + --+ --+ ------+| ?15-29 ?| ?Stage four ? | ? Stage four ?+ ---+ ---+ -------+| ?<15 (or dialysis) ? ?| ?Stage five ? | ? Stage five ?+ ---+ ---+ -------+ *Each stage assumes the associated GFR level has been in effect for at least three months. ?Stages 1 to 5, with or without kidney disease, indicate chronic kidney disease. Notes: Determination of stages one and two (with eGFR >59mL/min/1.73 m2) requires estimation of kidney damage for at least three months as defined by structural or functional abnormalities of the kidney, manifested by either:Pathological abnormalities or Markers of kidney damage (including abnormalities in the composition of the blood or urine or abnormalities in imaging tests). Lab Interpretation Abnormal (test code = 13896-1) [facility] WITH [id number] 21:21:23 Test Item Value Reference Range Interpretation Comments WBC (test code = 7.74 See_Comment [Automated 8777-2) message] The sy stem which generated this result transmitted reference range : 4.30 - 11.10 10*3/?L. The reference range was not used to interpret this result as normal/abnormal . RBC (test code = 4.32 See_Comment [Automated 334-8) message] The sy stem which generated this result transmitted reference range : 3.93 - 5.25 10*6/?L. The reference range was not used to interpret this result as normal/abnormal . HGB (test code = 13.3 g/dL 11.6-15.0 718-7) HCT (test code = 36.0 % 35.7-45.2 4544-3) MCV (test code = 83.3 fL 80.6-95.5 787-2) MCH (test code = 30.8 pg 25.9-32.8 785-6) MCHC (test code = 36.9 g/dL 31.6-35.1 H 786-4) RDW-SD (test code = 38.4 fL 39.0-49.9 L 95393-6) RDW-CV (test code = 12.5 % 12.0-15.5 788-0) PLT (test code = 451 See_Comment H [Automated 777-3) message] The sy stem which generated this result transmitted reference range : 166 - 358 10*3/ ?L. The reference r dannie was not used to interpret this result as normal/abnormal . MPV (test code = 8.5 fL 9.5-12.9 L 89866-8) IPF % (test code = 1.0 % 1.3-7.7 L Platelet count 7524102477) measured by fluorescence method. NRBC/100 WBC (test 0.0 See_Comment [Automat ed code = 4308101115) message] The system which generated this result transmitted reference range : 0.0 - 10.0 /100 WBCs. The refer ence range was not u sed to interpret th is result as normal/abnormal . NRBC x10^3 (test code See_Comment [Auto mated = 7259871635) message] The s ystem which generated this result transmitted reference range : 10*3/?L. The reference range was not used to interpret this result as normal/abnormal . GRAN MAT (NEUT) % 51.3 % (test code = 770-8) IMM GRAN % (test code 0.40 % = 6497504151) LYMPH % (test code = 41.7 % 736-9) MONO % (test code = 4.9 % 5905-5) EOS % (test code = 1.3 % 713-8) BASO % (test code = 0.4 % 706-2) GRAN MAT x10^3(ANC) 3.97 10*3/uL 1.88-7.09 (test code = 6164028269) IMM GRAN x10^3 (test 0.03 10*3/uL 0.00-0.06 code = 2991688953) LYMPH x10^3 (test code 3.23 10*3/uL 1.32-3.29 = 731-0) MONO x10^3 (test code 0.38 10*3/uL 0.33-0.92 = 742-7) EOS x10^3 (test code = 0.10 10*3/uL 0.03-0.39 711-2) BASO x10^3 (test code 0.03 10*3/uL 0.01-0.07 = 704-7) Lab Interpretation Abnormal (test code = 00106-9) [facility] and Screen - ONCE [id number] 21:14:00 Test Item Value Reference Range Interpretation Comments ABO & RH (test code = 20) O POSITIVE IAT (test code = 1185) Negative [facility] [id number] 20:09:00 Test Item Value Reference Range Interpretation Comments POCT PREG (test code = Negative Not r ecorded per 1605) staff On board controls Yes acceptable with C Line (test code = 3574) POCT PREG LOT # (test code = 3575) POCT PREG TEST DATE (test code = 3576) [facility]PO[facility] [id number] 14:24:00 Test Item Value Reference Range Interpretation Comments POCT PREG (test code = 1605) negative On board controls acceptable with present C Line (test code = 3574) POCT PREG LOT # (test code = 3575) [id number] POCT PREG TEST DATE (test 09-26-2023 code = 3576) Lab Interpretation (test code = Normal 86133-1) [facility]"
[2023-04-17 09:35] LABS: Urine Bacteria 20-50 /HPF (<20); Urine Bilirubin NEGATIVE (Negative); Urine Blood Negative (Negative); Urine Clarity Extremely Turbid (Clear); Urine Color Yellow (Yellow); Urine Glucose NEGATIVE (Negative); Urine Mucus 1+ /HPF (None Seen); Urine Protein NEGATIVE (Negative); Urine RBC <5 /HPF (None Seen); Urine Urobilinogen 1+ (Normal)
--- NOTE | 2023-04-17 09:43 | RAD REPORT ---
EXAM DESCRIPTION: US - Matter Eval Tm 1 - 04/17/2023 9:29 am CLINICAL HISTORY: ABD CRAMPING, COMPARISON: Transvaginal OB dated 02/07/2023 FINDINGS: A single gestational sac is seen within the uterus. The shape of the sac is within normal limits for gestational age. Within the sac is a single pole with crown-rump length of 8.2 cm, c orrelating to estimated gestational age of 14 weeks 1 day. Heart rate is 157 BPM. Posterior placenta without acute finding. Amniotic fluid volume grossly normal. The maternal adnexa and ovaries are within normal limits. Normal Doppler blood flow was demonstrated to both ovaries. Corpus luteal cyst right ovary suspected measuring 2.6 cm. IMPRESSION: Single live early intrauterine gestation with estimated gestational age of 14 weeks 1 da y. No acute finding evident.
[2023-04-17 10:04] LABS: Hematocrit 31.8 % (36.0-45.0); Lymphocytes % 29.4 % (15.3-44.8); MCV 87.7 fL (80-100); MPV 6.7 fL (7.6-11.3); Platelets 384 thou/uL (152-406); RBC Red Blood Cell Count 3.63 M/uL (3.86-4.86)
--- NOTE | 2023-04-17 10:10 | ER ---
Nurse's Notes [facility] Name: Marie Gann Age: 22 yrs Sex: Female : 2000 Arrival Date: 04/17/2023 Time: 08:33 Bed 8 Private MD: Diagnosis: UTI/ Urinary tract infection, site not specified;14 weeks gestation of Presentation: 04/17 08:45 Chief complaint: Patient states: G4, P1 14 weeks 6 days . Started having ll1 abdominal pain last night. Noticed her urine was darker in color and had foul odor also. Coronavirus screen: Vaccine status: Patient reports being unvaccinated. Client denies travel out of the [place] in the last 14 days. At this time, the client does not indicate any symptoms associated with coronavirus-19. Ebola Screen: Patient denies travel to an Ebola-affected area in the 21 days before illness onset. Initial Sepsis Screen: Does the patient meet any 2 criteria? No. Patient's initial sepsis screen is negative. Does the patient have a suspected source of infection? Yes: Acute abdominal pain. Risk Assessment: Do you want to hurt yourself or someone else? Patient reports no desire to harm self or others. Onset of symptoms was April 16, 2023. 08:45 Method Of Arrival: Ambulatory ll1 08:45 Acuity: AD 3 ll1 Historical: - Allergies: 08:45 No Known Allergies; ll1 - PMHx: 08:45 Ovarian cyst; seasonal allergies; ll1 - Immunization history:: Client reports receiving the 2nd dose of the Covid vaccine. - Social history:: Smoking status: Patient denies any tobacco usage or history of. Screenin:47 [facility] ED Fall Risk Assessment (Adult) History of falling in the last 3 months, cp4 including since admission No falls in past 3 months (0 pts) Confusion or Disorientation No (0 pts) Intoxicated or Sedated No (0 pts) Impaired Gait No (0 pts) Mobility Assist Device Used No (0 pt) Altered Elimination No (0 pt) Score/Fall Risk Level 0 - 2 = Low Risk. 08:47 Abuse screen: Denies threats or abuse. cp4 08:47 Nutritional screening: No deficits noted. Tuberculosis screening: No symptoms or risk cp4 factors identified. Assessment: 08:47 General: Appears in no apparent distress. Behavior is calm, cooperative, appropriate cp4 for age. Pain: Complains of pain in suprapubic area. Neuro: No deficits noted. Cardiovascular: No deficits noted. Respiratory: No deficits noted. GI: Bowel sounds present X 4 quads. Abd is soft and non tender X 4 quads. : No deficits noted. EENT: No deficits noted. Derm: No deficits noted. Musculoskeletal: No deficits noted. Vital Signs: 08:45 BP 113 / 71; Pulse 80; Resp 16; Temp 98.6; Pulse Ox 100% on R/A; Weight 58.97 kg; ll1 Height 5 ft. 4 in. ; Pain 4/10; 10:21 BP 104 / 78; Pulse 70; Resp 16; Pulse Ox 100% ; cp4 08:45 Body Mass Index 22.31 (58.97 kg, 162.56 cm) ll1 08:45 Pain Scale: Adult ll1 ED Course: 08:37 Patient arrived in ED. mg5 08:40 Dahlia Slaughter PA-C is PHCP. sb4 08:40 Franca Olivera is Attending Physician. sb4 08:40 Arm band placed on Patient placed in an exam room, on a stretcher. ll1 08:47 Bed in low position. Call light in reach. Side rails up X 1. cp4 08:48 Triage completed. ll1 08:54 Shadia Lo, RN is Primary Nurse. ko1 09:20 Test, Urine Sent. cp4 09:20 Urinalysis w/ reflexes Sent. cp4 09:26 Matter Eval Tm 1 In Process Unspecified. EDMS 09:39 Basic Metabolic Panel Sent. cp4 09:39 CBC with Diff Sent. cp4 09:39 Quantitative Hcg Sent. cp4 10:00 No provider procedures requiring assistance completed. cp4 10:00 intact, bleeding controlled, No redness/swelling at site. cp4 10:23 Provided Education on: urinary tract infections. . cp4 Administered Medications: 09:48 CANCELLED (Physician Discretion): [id number] mg PO once sb4 10:19 Drug: Cephalexin PO 500 mg PO once Route: PO; cp4 10:19 Follow up: Response: No adverse reaction cp4 Medication: 08:47 VIS not applicable for this client. cp4 Outcome: 10:10 Discharge ordered by . sb4 10:20 Discharged to home ambulatory, cp4 10:20 Condition: stable 10:20 Discharge instructions given to patient, Instructed on discharge instructions, follow up and referral plans. medication usage, 10:22 Patient left the ED. cp4 Signatures: Dispatcher [employer] EDPili Hoff RN RN ll1 Shadia Lo RN RN ko1 Dahlia Slaughter, PARonaldoC PACamilo sb4 Narcisa Hernandez 5 [place] cp4 Corrections: (The following items were deleted from the chart) 10: 10:00 Discharged to home ambulatory, cp4 cp4 10: 10:00 Condition: stable cp4 cp4 10: 10:00 Discharge instructions given to patient, Instructed on discharge instructions, cp4 follow up and referral plans. Demonstrated understanding of instructions, follow-up care, cp4 10:22 09:58 BP 157 / 79; Pulse 97bpm; Resp 16bpm; Pulse Ox 97%; cp4 cp4 10:24 10:00 Provided Education on: Type 1 diabetes, nausea, and vomiting.. cp4 cp4
--- NOTE | 2023-04-17 10:10 | EDPHYS ---
Physician Documentation [facility] Name: Marie Gann Age: 22 yrs Sex: Female : 2000 Arrival Date: 04/17/2023 Time: 08:33 Bed 8 Private MD: ED Physician Franca Olivera HPI: 04/17 09:07 This 22 yrs old Female presents to ER via Ambulatory with complaints of sb4 Abdominal Pain, Pregnate-14WKS. 09:07 The patient presents with abdominal pain in the lower abdomen. Onset: The sb4 symptoms/episode began/occurred last night. The symptoms radiate to the right flank. Associated signs and symptoms: Pertinent positives: , vaginal discharge, foul urine odor, darker urine. The symptoms are described as intermittent. Modifying factors: The symptoms are alleviated by nothing, the symptoms are aggravated by nothing. 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 . patient reports abdominal cramping that began last night and has noticed darker colored urine with a foul smell. states her OB told her she had bacteria in her urine 1 week ago and prescribed her an antibiotic, which she completed. she denies any history of kidney stones. no fever, no painful urination or burning with urination. denies any vaginal bleeding. Historical: - Allergies: 08:45 No Known Allergies; ll1 - PMHx: 08:45 Ovarian cyst; seasonal allergies; ll1 - Immunization history:: Client reports receiving the 2nd dose of the Covid vaccine. - Social history:: Smoking status: Patient denies any tobacco usage or history of. ROS: 09:07 Constitutional: Negative for fever, chills, and weight loss, sb4 09:07 Abdomen/GI: Positive for abdominal pain, 09:07 : Positive for foul smelling urine, vaginal discharge, 09:07 : Positive for 09:07 All other systems are negative, Exam: 09:07 Constitutional: This is a well developed, well nourished patient who is awake, alert, sb4 and in no acute distress. Head/Face: Normocephalic, atraumatic. Eyes: Extra-ocular motions intact. Periorbital areas with no swelling, redness, or edema. ENT: Mucous membranes moist. Cardiovascular: Regular rate and rhythm with a normal S1 and S2. Respiratory: Lungs have equal breath sounds bilaterally, clear to auscultation and percussion. No rales, rhonchi or wheezes noted. No increased work of breathing, no retractions or nasal flaring. Abdomen/GI: Soft, non-tender, no distension. Skin: Warm, dry with normal turgor. Normal color with no rashes, no lesions, and no evidence of cellulitis. MS/ Extremity: Pulses equal, no cyanosis. Neurovascular intact. Full, normal range of motion. Neuro: Awake and alert, GCS 15, oriented to person, place, time, and situation. Motor strength 5/5 in all extremities. Sensory grossly intact. Vital Signs: 08:45 BP 113 / 71; Pulse 80; Resp 16; Temp 98.6; Pulse Ox 100% on R/A; Weight 58.97 kg; ll1 Height 5 ft. 4 in. ; Pain 4/10; 10:21 BP 104 / 78; Pulse 70; Resp 16; Pulse Ox 100% ; cp4 08:45 Body Mass Index 22.31 (58.97 kg, 162.56 cm) ll1 08:45 Pain Scale: Adult ll1 MDM: 08:40 Patient medically screened. sb4 09:07 Differential diagnosis: Ectopic , non-specific abd pain, Ovarian Torsion, sb4 Tubal Ovarian Abcess, Ureterolithiasis, urinary tract infection. 10:08 Data reviewed: vital signs, nurses notes, lab test result(s), radiologic studies, and sb4 as a result, I will discharge patient. Care significantly affected by the following chronic conditions: . Counseling: I had a detailed discussion with the patient and/or guardian regarding the historical points, exam findings, and any diagnostic results supporting the discharge/admit diagnosis, lab results, radiology results, the need for outpatient follow up, an OB/Gyne specialist, to return to the emergency department if symptoms worsen or persist or if there are any questions or concerns that arise at home. ED course: patient with recurrent UTIs in her , recently treated with Macrobid, appears she was treated with cephalexin last month. educated on proper hygiene and preventative measures. did not have cefpodoxime here, but will write prescription for and give 1 dose of cephalexin here. she is instructed to follow up with her OB and to return to ED if she starts experiencing fever, worsening pain, or flank pain. she understands. 04/17 08:49 Order name: Basic Metabolic Panel sb4 04/17 08:49 Order name: CBC with Diff; Complete Time: 10:05 sb4 04/17 08:49 Order name: Test, Urine; Complete Time: 09:34 sb4 04/17 08:49 Order name: Quantitative Hcg sb4 04/17 08:53 Order name: UAM; Complete Time: 09:36 sb4 04/17 09:26 Order name: Matter Eval Tm 1; Complete Time: 09:45 EDMS 04/17 08:49 Order name: IV Saline Lock; Complete Time: 09:39 sb4 04/17 08:49 Order name: Labs collected and sent; Complete Time: 09:39 sb4 Administered Medications: 09:48 CANCELLED (Physician Discretion): [id number] mg PO once sb4 10:19 Drug: Cephalexin PO 500 mg PO once Route: PO; cp4 10:19 Follow up: Response: No adverse reaction cp4 Disposition Summary: 04/17/23 10:10 Discharge Ordered Notes: Location: Home sb4 Problem: new sb4 Symptoms: have improved sb4 Condition: Stable sb4 Diagnosis - UTI/ Urinary tract infection, site not specified sb4 - 14 weeks gestation of sb4 Followup: sb4 - With: Private Physician - When: 2 - 3 days - Reason: Recheck today's complaints, Continuance of care, Re-evaluation by your physician Discharge Instructions: - Discharge Summary Sheet sb4 - and Urinary Tract Infection sb4 Forms: - Medication Reconciliation Form sb4 - Thank You Letter sb4 - Antibiotic Education sb4 - Prescription Opioid Use sb4 - Patient Portal Instructions sb4 - Leadership Thank You Letter sb4 Prescriptions: - cefpodoxime 100 mg Oral tablet - take 1 tablet ORAL route every 12 hours for 7 days take with food; 14 tablet; sb4 Refills: 0, Product Selection Permitted Signatures: Dispatcher [facility] Pili Sheridan RN RN ll1 Dahlia Slaughter, OSVALDO PACamilo sb4 Lay [place] cp4 Corrections: (The following items were deleted from the chart) 08:58 08:50 ABO/RH TYPING+BB.LAB.BRZ ordered. EDMS EDMS 09:26 08:50 Transvaginal Ob+US.RAD.BRZ ordered. EDMS EDMS 09:48 09:37 cefPODOXime PO 100 mg PO once ordered. sb4 sb4
[2023-04-17 10:25] LABS: Potassium 3.6 mEq/L (3.5-5.1)
[2023-04-17] MEDS ORDERED: CEPHALEXIN 250 MG CAP ONE (10:26)
[2023-04-17 10:43] VITALS: TEMP 98.6; O2SAT 100
[2023-04-17 10:45] VITALS: BP 104/78
== END 2023-04-17 10:22 | disposition home or self-care (01) ==
LOC: ER 08:33
DX: O23.42 Unspecified infection of urinary tract in pregnancy, second trimester (principal); Z3A.14 14 weeks gestation of pregnancy
CPT/HCPCS: 36415; 76801; 80048; 81001; 81025; 84702; 85025

== ENCOUNTER 2023-06-01 18:57 | Emergency (ER) | payer OTHER ==
--- OUTSIDE RECORDS SUMMARY | 2023-06-01 19:15 | XMS REPORT | Continuity of Care Document ---
:2000 Author Organization [facility] t Address [address] [place] [address] Care Team Providers Name Role Phone Pawel Gayle Primary Care Physician MINH KRISHNAMURTHY Attending Clinician Unavailable MINH KRISHNAMURTHY Attending Clinician Unavailable Doctor Unassigned, [place] Attending Clinician Unavailable Chelle Renteria RN Attending Clinician Unavailable Lab, Ang - Db Attending Clinician Unavailable Mery Chairez Attending Clinician [facility] Attending Clinician Unavailable [facility] Attending Clinician Unavailable Cheyenne Meredith MD Attending Clinician [facility] Attending Clinician Unavailable Sonia Poon MD Attending Clinician SONIA POON Attending Clinician Unavailable Trimester, [facility] Res-1st Attending Clinician Unavailable DAISHA THORNE Attending Clinician Unavailable Daisha Thorne MD [...] Type Policy Number Effective Date Expiration Date Yakov babb [place] NICOLA CARRERA [id number] 2022 00:00:00 Problems Condition Condition Condition Status Onset Resolution Last Treating Co mments Source Name Details Category Date Date Treatment Clinician Date ASB ASB Disease Active Univers (asymptoma (asymptoma 04-04 it y of tic tic 00:00: [place] bacteriuri bacteriuri 00 Me dical a) a) Branch High-risk High-risk Disease Active Uni vers 04-04 ity of in first in first 00:00: [place] trimester trimester 00 [facility] Branch Rubella Rubella Disease Active Univers non-immune non-immune 04-04 it y of status, status, 00:00: [place] antepartum antepartum 00 Me dical Branch Screening Screening Disease Active Uni vers examinatio examinatio 6-14 it [place] of n [place] STD [place] ST[place] (sexually 00 [facility] transmitte transmitte Br anch d disease) [...] Active Univers ALLERGIE Class ity of S [facility] Social History Social Habit Start Date Stop Date Quantity Comments Source ASSERTION 2023-01-17 University of 00:00:00 [facility] Gender identity Universit y of [facility] Sexual orientation Univer [facility] [place] [facility] [place] History SDOH University o f Alcohol Frequency [place] M edical Branch History SDOH University o f Alcohol Std Drinks [place] [facility] [place] History SDNV University o f Alcohol Binge [place] [facility] Alcohol intake 2023-05-02 2023-05-02 .43 /d University of 00:00:00 00:00:00 [facility] Exposure to 2022-06-19 2022-06-29 Not sure [facility] SARS-CoV-2 (event) 00:00:00 14:25:00 [facility] Tobacco use and 2022-06-29 2022-06-29 Smokeless Universit y of exposure 00:00:00 00:00:00 tobacco non-user [facility] History of Social 2022-01-09 2022-01-09 Univers ity of function 00:00:00 00:00:00 [facility] Alcohol Comment 2022-01-09 2022-01-09 socially Universit y of 00:00:00 00:00:00 [facility] Sex Assigned At [birth year] Universit y of 00:00:00 00:00:00 [facility] Smoking Status Start Date Stop Date Source Never smoked tobacco [facility] Medications Ordered Filled Start Stop Current Ordering Indication Dosage Frequency Signature Comments Components Source Medication Medication Date Date Medication? Clinician (SIG) Name Name ampicillin 2022-07 Yes 250mg Take 1 Univ ers 250 mg 0-25 capsule by ity of capsule 00:00: mouth [place] 00 every 6 Medical (six) Branch hours. ampicillin 2022-07- Yes 250mg Take 1 Uni vers 250 mg 0-19 10-27 capsule by ity of capsule 00:00: 04:59 mouth [place] 00 :00 every 6 Medical (six) Branch hours for 7 days. ampicillin 2022-07- Yes 250mg Take 1 Uni vers 250 mg 0-19 10-27 capsule by ity of capsule 00:00: 04:59 mouth [place] 00 :00 every 6 Medical (six) Branch hours for 7 days. ampicillin 2022-07- No 250mg Take 1 Uni vers 250 mg 0-19 10-25 capsule by ity of capsule 00:00: 00:00 mouth [place] 00 :00 every 6 Medical (six) Branch hours for 7 days. ampicillin Yes [id number] 500mg Take 1 Univers 500 mg 9-07 capsule by ity of capsule 00:00: mouth [place] 00 every 6 Medical (six) Branch hours. ampicillin Yes [id number] 500mg Take 1 Univers 500 mg 9-07 capsule by ity of capsule 00:00: mouth [place] 00 every 6 Medical (six) Branch hours. metroNIDAZO 2023-0 Yes [id number] 500mg Take 1 Univers LE (FLAGYL) 9-07 tablet by ity of 500 mg 00:00: mouth [place] tablet 00 every 12 Medical (twelve) Branch hours. ampicillin 2023-0 Yes [id number] 500mg Take 1 Univers 500 mg 9-07 capsule by ity of capsule 00:00: mouth [place] 00 every 6 Medical (six) Branch hours. metroNIDAZO 2023-0 Yes [id number] 500mg Take 1 Univers LE (FLAGYL) 9-07 tablet by ity of 500 mg 00:00: mouth [place] tablet 00 every 12 Medical (twelve) Branch hours. ampicillin 2023-0 Yes [id number] 500mg Take 1 Univers 500 mg 9-07 capsule by ity of capsule 00:00: mouth [place] 00 every 6 Medical (six) Branch hours. metroNIDAZO 2023-0 Yes [id number] 500mg Take 1 Univers LE (FLAGYL) 9-07 tablet by ity of 500 mg 00:00: mouth [place] tablet 00 every 12 Medical (twelve) Branch hours. ampicillin 2023-0 Yes [id number] 500mg Take 1 Univers 500 mg 9-07 capsule by ity of capsule 00:00: mouth [place] 00 every 6 Medical (six) Branch hours. metroNIDAZO 2023-0 Yes [id number] 500mg Take 1 Univers LE (FLAGYL) 9-07 tablet by ity of 500 mg 00:00: mouth [place] tablet 00 every 12 Medical (twelve) Branch hours. ampicillin 2023-0 Yes [id number] 500mg Take 1 Univers 500 mg 9-07 capsule by ity of capsule 00:00: mouth [place] 00 every 6 Medical (six) Branch hours. metroNIDAZO 2023-0 Yes [id number] 500mg Take 1 Univers LE (FLAGYL) 9-07 tablet by ity of 500 mg 00:00: mouth [place] tablet 00 every 12 Medical (twelve) Branch hours. ampicillin 2023-0 Yes [id number] 500mg Take 1 Univers 500 mg 9-07 capsule by ity of capsule 00:00: mouth [place] 00 every 6 Medical (six) Branch hours. metroNIDAZO 2023-0 Yes [id number] 500mg Take 1 Univers LE (FLAGYL) 9-07 tablet by ity of 500 mg 00:00: mouth [place] tablet 00 every 12 Medical (twelve) Branch hours. ampicillin 2023-0 Yes [id number] 500mg Take 1 Univers 500 mg 9-07 capsule by ity of capsule 00:00: mouth [place] 00 every 6 Medical (six) Branch hours. metroNIDAZO 2023-0 Yes [id number] 500mg Take 1 Univers LE (FLAGYL) 9-07 tablet by ity of 500 mg 00:00: mouth [place] tablet 00 every 12 Medical (twelve) Branch hours. ampicillin 2023-0 Yes [id number] 500mg Take 1 Univers 500 mg 9-07 capsule by ity of capsule 00:00: mouth [place] 00 every 6 Medical (six) Branch hours. metroNIDAZO 2023-0 Yes [id number] 500mg Take 1 Univers LE (FLAGYL) 9-07 tablet by ity of 500 mg 00:00: mouth [place] tablet 00 every 12 Medical (twelve) Branch hours. ampicillin 2023-0 Yes [id number] 500mg Take 1 Univers 500 mg 9-07 capsule by ity of capsule 00:00: mouth [place] 00 every 6 Medical (six) Branch hours. metroNIDAZO 2023-0 Yes [id number] 500mg Take 1 Univers LE (FLAGYL) 9-07 tablet by ity of 500 mg 00:00: mouth [place] tablet 00 every 12 Medical (twelve) Branch hours. ampicillin 2023-0 Yes [id number] 500mg Take 1 Univers 500 mg 9-07 capsule by ity of capsule 00:00: mouth [place] 00 every 6 Medical (six) Branch hours. metroNIDAZO 2023-0 Yes [id number] 500mg Take 1 Univers LE (FLAGYL) 9-07 tablet by ity of 500 mg 00:00: mouth [place] tablet 00 every 12 Medical (twelve) Branch hours. metroNIDAZO 2023-0 Yes [id number] 500mg Take 1 Univers LE (FLAGYL) 9-07 tablet by ity of 500 mg 00:00: mouth [place] tablet 00 every 12 Medical (twelve) Branch hours. metroNIDAZO 2023-0 Yes [id number] 500mg Take 1 Univers LE (FLAGYL) 9-07 tablet by ity of 500 mg 00:00: mouth [place] tablet 00 every 12 Medical (twelve) Branch hours. metroNIDAZO 2023-0 Yes [id number] 500mg Take 1 Univers LE (FLAGYL) 9-07 tablet by ity of 500 mg 00:00: mouth [place] tablet 00 every 12 Medical (twelve) Branch hours. metroNIDAZO 2023-0 Yes [id number] 500mg Take 1 Univers LE (FLAGYL) 9-07 tablet by ity of 500 mg 00:00: mouth [place] tablet 00 every 12 Medical (twelve) Branch hours. ampicillin 2022-0 2022- No [id number] 500mg Take 1 Univers 500 mg 9- 10-19 capsule by ity of capsule 00:00: 00:00 mouth [place] 00 :00 every 6 Medical (six) Branch hours. ampicillin 202-0 2022- No [id number] 500mg Take 1 Univers 500 mg 9- 10-19 capsule by ity of capsule 00:00: 00:00 mouth [place] 00 :00 every 6 Medical (six) Branch hours. metroNIDAZO 2022-0 2022- Yes [id number] 500mg Take 1 Univers LE (FLAGYL) 8-06 05-17 tablet by it y of 500 mg 00:00: 04:59 mouth in [place] tablet 00 :00 the Medical morning Branch and 1 tablet in the evening. Do all this for 5 days. metroNIDAZO 2022-0 2022- No [id number] 500mg Take 1 Univers LE (FLAGYL) 8-06 05-17 tablet by it y of 500 mg 00:00: 04:59 mouth in [place] tablet 00 :00 the Medical morning Branch and 1 tablet in the evening. Do all this for 5 days. ondansetron 2022-0 Yes [id number] 4mg Take 1 Univers (ZOFRAN) 4 8-10 tablet by ity of mg tablet 00:00: mouth [place] 00 every 8 Medical (eight) Branch hours as needed for Nausea and Vomiting (N/V). ondansetron 3-0 Yes [id number] 4mg Take 1 Univers (ZOFRAN) 4 8-10 tablet by ity of mg tablet 00:00: mouth [place] 00 every 8 Medical (eight) Branch hours as needed for Nausea and Vomiting (N/V). ondansetron 2023-0 Yes [id number] 4mg Take 1 Univers (ZOFRAN) 4 8-10 tablet by ity of mg tablet 00:00: mouth [place] 00 every 8 Medical (eight) Branch hours as needed for Nausea and Vomiting (N/V). ondansetron 2023-0 Yes [id number] 4mg Take 1 Univers (ZOFRAN) 4 8-10 tablet by ity of mg tablet 00:00: mouth [place] 00 every 8 Medical (eight) Branch hours as needed for Nausea and Vomiting (N/V). ondansetron 2023-0 Yes [id number] 4mg Take 1 Univers (ZOFRAN) 4 8-10 tablet by ity of mg tablet 00:00: mouth [place] 00 every 8 Medical (eight) Branch hours as needed for Nausea and Vomiting (N/V). ondansetron 2023-0 Yes [id number] 4mg Take 1 Univers (ZOFRAN) 4 8-10 tablet by ity of mg tablet 00:00: mouth [place] 00 every 8 Medical (eight) Branch hours as needed for Nausea and Vomiting (N/V). ondansetron 2023-0 Yes [id number] 4mg Take 1 Univers (ZOFRAN) 4 8-10 tablet by ity of mg tablet 00:00: mouth [place] 00 every 8 Medical (eight) Branch hours as needed for Nausea and Vomiting (N/V). ondansetron 2023-0 Yes [id number] 4mg Take 1 Univers (ZOFRAN) 4 8-10 tablet by ity of mg tablet 00:00: mouth [place] 00 every 8 Medical (eight) Branch hours as needed for Nausea and Vomiting (N/V). ondansetron 2023-0 Yes [id number] 4mg Take 1 Univers (ZOFRAN) 4 8-10 tablet by ity of mg tablet 00:00: mouth [place] 00 every 8 Medical (eight) Branch hours as needed for Nausea and Vomiting (N/V). ondansetron 2023-0 Yes [id number] 4mg Take 1 Univers (ZOFRAN) 4 8-10 tablet by ity of mg tablet 00:00: mouth [place] 00 every 8 Medical (eight) Branch hours as needed for Nausea and Vomiting (N/V). ondansetron 2023-0 Yes [id number] 4mg Take 1 Univers (ZOFRAN) 4 8-10 tablet by ity of mg tablet 00:00: mouth [place] 00 every 8 Medical (eight) Branch hours as needed for Nausea and Vomiting (N/V). ondansetron 2023-0 Yes [id number] 4mg Take 1 Univers (ZOFRAN) 4 8-10 tablet by ity of mg tablet 00:00: mouth [place] 00 every 8 Medical (eight) Branch hours as needed for Nausea and Vomiting (N/V). ondansetron 3-0 Yes [id number] 4mg Take 1 Univers (ZOFRAN) 4 8-10 tablet by ity of mg tablet 00:00: mouth [place] 00 every 8 Medical (eight) Branch hours as needed for Nausea and Vomiting (N/V). ondansetron 3-0 Yes [id number] 4mg Take 1 Univers (ZOFRAN) 4 8-10 tablet by ity of mg tablet 00:00: mouth [place] 00 every 8 Medical (eight) Branch hours as needed for Nausea and Vomiting (N/V). ondansetron 3-0 Yes [id number] 4mg Take 1 Univers (ZOFRAN) 4 8-10 tablet by ity of mg tablet 00:00: mouth [place] 00 every 8 Medical (eight) Branch hours as needed for Nausea and Vomiting (N/V). ondansetron 3-0 Yes [id number] 4mg Take 1 Univers (ZOFRAN) 4 8-10 tablet by ity of mg tablet 00:00: mouth [place] 00 every 8 Medical (eight) Branch hours as needed for Nausea and Vomiting (N/V). ondansetron 3-0 Yes [id number] 4mg Take 1 Univers (ZOFRAN) 4 8-10 tablet by ity of mg tablet 00:00: mouth [place] 00 every 8 Medical (eight) Branch hours as needed for Nausea and Vomiting (N/V). ondansetron 2023-0 Yes [id number] 4mg Take 1 Univers (ZOFRAN) 4 8-10 tablet by ity of mg tablet 00:00: mouth [place] 00 every 8 Medical (eight) Branch hours as needed for Nausea and Vomiting (N/V). ondansetron 2023-0 Yes [id number] 4mg Take 1 Univers (ZOFRAN) 4 8-10 tablet by ity of mg tablet 00:00: mouth [place] 00 every 8 Medical (eight) Branch hours as needed for Nausea and Vomiting (N/V). ondansetron 2023-0 Yes [id number] 4mg Take 1 Univers (ZOFRAN) 4 8-10 tablet by ity of mg tablet 00:00: mouth 00 every 8 Medical (eight) Branch hours as needed for Nausea and Vomiting (N/V). ondansetron Yes [id number] 4mg Take 1 Univers (ZOFRAN) 4 8-10 tablet by ity of mg tablet 00:00: mouth 00 every 8 Medical (eight) Branch hours as needed for Nausea and Vomiting (N/V). NaCl 0.9% Yes 1000mL at 999 Univ ers (NS) IV 7-20 mL/hr, IV ity of infusion 01:00: [place], [place] 1,000 mL 00 CONTINUOUS Medic al , Starting Branch on Sat02/13/23 at 2000, Until Discontinu ed, Routine cefdinir No 300mg 300 mg, Univ ers (OMNICEF) 02-14 Oral, ity of capsule 300 00:00: 00:13 [place]CE, 1 [place] mg 00 :00 dose, On Medical Sat Branch 02/13/23 at 1900, FRANCISCO
Re ason for Anti-Infec tive: Documented Infection< br>Documen charlene Infection Site: Urine
D uration of Therapy: 7 days acetaminoph No 325mg 325 mg, U nivers en 02-13 Oral, ity of (TYLENOL) 20:30: 20:30 ONCE, 1 [place] tablet 325 00 :00 dose, On Medic al mg Sat Branch 02/13/23 at 1530, Routine 2022- No [id number] 1{capsu Take 1 Univers 26-iron 02-13 le} capsule by ity o f ps-folic-dh 00:00: 04:59 mouth [place] a 29 mg 00 :00 the Medical iron- 1 morning Branch mg-200 mg for 30 per capsule days. 2022- No [id number] 1{capsu Take 1 Univers 26-iron 02-13 le} capsule by ity o f ps-folic-dh 00:00: 04:59 mouth [place] a 29 mg 00 :00 the Medical iron- 1 morning Branch mg-200 mg for 30 per capsule days. 2022- No [id number] 1{capsu Take 1 Univers 26-iron 7-16 03- le} capsule by ity o f ps-folic-dh 00:00: 04:59 mouth in [place] a 29 mg 00 :00 the Medical iron- 1 morning Branch mg-200 mg for 30 per capsule days. 2022- No [id number] 1{capsu Take 1 Univers 26-iron 7-16 03- le} capsule by ity o f ps-folic-dh 00:00: 04:59 mouth in [place] a 29 mg 00 :00 the Medical iron- 1 morning Branch mg-200 mg for 30 per capsule days. 2022- No [id number] 1{capsu Take 1 Univers 26-iron 7-16 03- le} capsule by ity o f ps-folic-dh 00:00: 04:59 mouth [place] a 29 mg 00 :00 the Medical iron- 1 morning Branch mg-200 mg for 30 per capsule days. cefdinir 2022- No [id number] 300mg Take 1 U nivers 300 mg 02-13 capsule by ity of capsule 00:00: 04:59 mouth [place] 00 :00 every 12 Medical (twelve) Branch hours for 7 days. cefdinir 2022- No [id number] 300mg Take 1 U nivers 300 mg 02-13 capsule by ity of capsule 00:00: 04:59 mouth [place] 00 :00 every 12 Medical (twelve) Branch hours for 7 days. norgestimat 2021-07 Yes [id number] 1{tbl} Take 1 Univers e-ethinyl 2-02 tablet by ity o f estradioL 00:00: mouth [place] 0.25-35 00 the Medical mg-mcg per morning. Branc h tablet norgestimat 2021-07 Yes [id number] 1{tbl} Take 1 Univers e-ethinyl 2-02 tablet by ity o f estradioL 00:00: mouth [place] 0.25-35 00 the Medical mg-mcg per morning. Branc h tablet norgestimat 2021-07 Yes [id number] 1{tbl} Take 1 Univers e-ethinyl 2-02 tablet by ity o f estradioL 00:00: mouth [place] 0.25-35 00 the Medical mg-mcg per morning. Branc h tablet norgestimat 2021-07 Yes [id number] 1{tbl} Take 1 Univers e-ethinyl 2-02 tablet by ity o f estradioL 00:00: mouth [place] 0.25-35 00 the Medical mg-mcg per morning. Branc h tablet norgestimat 2021-07 Yes [id number] 1{tbl} Take 1 Univers e-ethinyl 2-02 tablet by ity o f estradioL 00:00: mouth [place] 0.25-35 00 the Medical mg-mcg per morning. Branc h tablet norgestimat 2021-07 Yes [id number] 1{tbl} Take 1 Univers e-ethinyl 2-02 tablet by ity o f estradioL 00:00: mouth [place] 0.25-35 00 the Medical mg-mcg per morning. Branc h tablet norgestimat 2021-07 Yes [id number] 1{tbl} Take 1 Univers e-ethinyl 2-02 tablet by ity o f estradioL 00:00: mouth [place] 0.25-35 00 the Medical mg-mcg per morning. Branc h tablet norgestimat 2021-07 Yes [id number] 1{tbl} Take 1 Univers e-ethinyl 2-02 tablet by ity o f estradioL 00:00: mouth [place] 0.25-35 00 the Medical mg-mcg per morning. Branc h tablet norgestimat 2021-07 Yes [id number] 1{tbl} Take 1 Univers e-ethinyl 2-02 tablet by ity o f estradioL 00:00: mouth [place] 0.25-35 00 the Medical mg-mcg per morning. Branc h tablet norgestimat 2021-07 Yes [id number] 1{tbl} Take 1 Univers e-ethinyl 2-02 tablet by ity o f estradioL 00:00: mouth [place] 0.25-35 00 the Medical mg-mcg per morning. Branc h tablet norgestimat 2021-07 Yes [id number] 1{tbl} Take 1 Univers e-ethinyl 2-02 tablet by ity o f estradioL 00:00: mouth [place] 0.25-35 00 the Medical mg-mcg per morning. Branc h tablet norgestimat 2021-07 Yes [id number] 1{tbl} Take 1 Univers e-ethinyl 2-02 tablet by ity o f estradioL 00:00: mouth [place] 0.25-35 00 the Medical mg-mcg per morning. Branc h tablet norgestimat 2021-07 Yes [id number] 1{tbl} Take 1 Univers e-ethinyl 2-02 tablet by ity o f estradioL 00:00: mouth [place] 0.25-35 00 the Medical mg-mcg per morning. Branc h tablet norgestimat 2021-07 Yes [id number] 1{tbl} Take 1 Univers e-ethinyl 2-02 tablet by ity o f estradioL 00:00: mouth [place] 0.25-35 00 the Medical mg-mcg per morning. Branc h tablet norgestimat 2021-07 Yes [id number] 1{tbl} Take 1 Univers e-ethinyl 2-02 tablet by ity o f estradioL 00:00: mouth [place] 0.25-35 00 the Medical mg-mcg per morning. Branc h tablet norgestimat 2021-07 Yes [id number] 1{tbl} Take 1 Univers e-ethinyl 2-02 tablet by ity o f estradioL 00:00: mouth [place] 0.25-35 00 the Medical mg-mcg per morning. Branc h tablet norgestimat 2021-07 Yes [id number] 1{tbl} Take 1 Univers e-ethinyl 2-02 tablet by ity o f estradioL 00:00: mouth [place] 0.25-35 00 the Medical mg-mcg per morning. Branc h tablet norgestimat 2021-07- No [id number] 1{tbl} Take 1 Univers e-ethinyl 2-02 08-10 [...] 05/18/22 at 1030, Routine ondansetron 2021-07 Yes [id number] 4mg Take 1 Univers 4 mg 0-21 tablet by ity of disintegrat 00:00: mouth [place] ing tablet 00 every 8 Medica l (eight) Branch hours as needed for Nausea and Vomiting (N/V). ondansetron 2021-07 Yes [id number] 4mg Take 1 Univers 4 mg 0-21 tablet by ity of disintegrat 00:00: mouth [place] ing tablet 00 every 8 Medica l (eight) Branch hours as needed for Nausea and Vomiting (N/V). ondansetron 2021-07 Yes [id number] 4mg Take 1 Univers 4 mg 0-21 tablet by ity of disintegrat 00:00: mouth [place] ing tablet 00 every 8 Medica l (eight) Branch hours as needed for Nausea and Vomiting (N/V). ondansetron 2021-07 Yes [id number] 4mg Take 1 Univers 4 mg 0-21 tablet by ity of disintegrat 00:00: mouth [place] ing tablet 00 every 8 Medica l (eight) Branch hours as needed for Nausea and Vomiting (N/V). ondansetron 2021-07 Yes [id number] 4mg Take 1 Univers 4 mg 0-21 tablet by ity of disintegrat 00:00: mouth [place] ing tablet 00 every 8 Medica l (eight) Branch hours as needed for Nausea and Vomiting (N/V). ondansetron 2021-07 Yes [id number] 4mg Take 1 Univers 4 mg 0-21 tablet by ity of disintegrat 00:00: mouth [place] ing tablet 00 every 8 Medica l (eight) Branch hours as needed for Nausea and Vomiting (N/V). ondansetron 2021-07 Yes [id number] 4mg Take 1 Univers 4 mg 0-21 tablet by ity of disintegrat 00:00: mouth [place] ing tablet 00 every 8 Medica l (eight) Branch hours as needed for Nausea and Vomiting (N/V). ondansetron 2021-07 Yes [id number] 4mg Take 1 Univers 4 mg 0-21 tablet by ity of disintegrat 00:00: mouth [place] ing tablet 00 every 8 Medica l (eight) Branch hours as needed for Nausea and Vomiting (N/V). ondansetron 2021-07 Yes [id number] 4mg Take 1 Univers 4 mg 0-21 tablet by ity of disintegrat 00:00: mouth [place] ing tablet 00 every 8 Medica l (eight) Branch hours as needed for Nausea and Vomiting (N/V). ondansetron 2021-07 Yes [id number] 4mg Take 1 Univers 4 mg 0-21 tablet by ity of disintegrat 00:00: mouth [place] ing tablet 00 every 8 Medica l (eight) Branch hours as needed for Nausea and Vomiting (N/V). ondansetron 2021-07 Yes [id number] 4mg Take 1 Univers 4 mg 0-21 tablet by ity of disintegrat 00:00: mouth [place] ing tablet 00 every 8 Medica l (eight) Branch hours as needed for Nausea and Vomiting (N/V). ondansetron 2021-07 Yes [id number] 4mg Take 1 Univers 4 mg 0-21 tablet by ity of disintegrat 00:00: mouth [place] ing tablet 00 every 8 Medica l (eight) Branch hours as needed for Nausea and Vomiting (N/V). ondansetron 2021-07 Yes [id number] 4mg Take 1 Univers 4 mg 0-21 tablet by ity of disintegrat 00:00: mouth [place] ing tablet 00 every 8 Medica l (eight) Branch hours as needed for Nausea and Vomiting (N/V). ondansetron 2021-07 Yes [id number] 4mg Take 1 Univers 4 mg 0-21 tablet by ity of disintegrat 00:00: mouth [place] ing tablet 00 every 8 Medica l (eight) Branch hours as needed for Nausea and Vomiting (N/V). ondansetron 2021-07 Yes [id number] 4mg Take 1 Univers 4 mg 0-21 tablet by ity of disintegrat 00:00: mouth [place] ing tablet 00 every 8 Medica l (eight) Branch hours as needed for Nausea and Vomiting (N/V). ondansetron 2021-07 Yes [id number] 4mg Take 1 Univers 4 mg 0-21 tablet by ity of disintegrat 00:00: mouth [place] ing tablet 00 every 8 Medica l (eight) Branch hours as needed for Nausea and Vomiting (N/V). ondansetron 2021-07 Yes [id number] 4mg Take 1 Univers 4 mg 0-21 tablet by ity of disintegrat 00:00: mouth [place] ing tablet 00 every 8 Medica l (eight) Branch hours as needed for Nausea and Vomiting (N/V). ondansetron 2021-07 Yes [id number] 4mg Take 1 Univers 4 mg 0-21 tablet by ity of disintegrat 00:00: mouth [place] ing tablet 00 every 8 Medica l (eight) Branch hours as needed for Nausea and Vomiting (N/V). ondansetron 2021-07- No [id number] 4mg Take 1 Univers 4 mg 0-21 08-10 tablet by ity of disintegrat 00:00: 00:00 mouth [place] tablet 00 :00 every 8 Medica l (eight) Branch hours as needed for Nausea and Vomiting (N/V). norgestimat Yes [id number] 1{tbl} Take 1 Univers e-ethinyl 6-16 tablet by ity o f estradioL 00:00: mouth [place] 0.25-35 00 daily. Medical mg-mcg per Branch tablet norgestimat Yes [id number] 1{tbl} Take 1 Univers e-ethinyl 6-16 tablet by ity o f estradioL 00:00: mouth [place] 0.25-35 00 daily. Medical mg-mcg per Branch tablet norgestimat 2021- No [id number] 1{tbl} Take 1 Univers e-ethinyl 6-16 12-02 tablet by ity of estradioL 00:00: 00:00 mouth [place] 0.25-35 00 :00 daily. Medical mg-mcg per Branch tablet Immunizations Ordered Filled Date Status Comments Source Immunization Name Immunization Name HPV9 2018-10-20 Completed [facility] 00:00:00 [facility] HPV9 2018-10-20 Completed [facility] of 00:00:00 [facility] HPV9 2018-10-20 Completed [facility] 00:00:00 [facility] HPV9 2018-10-20 Completed [facility] 00:00:00 [facility] HPV9 2018-10-20 Completed [facility] 00:00:00 [facility] HPV9 2018-10-20 Completed University of 00:00:00 [place] [facility] HPV9 2018-10-20 Completed [facility] 00:00:00 [place] [facility] HPV9 2018-10-20 Completed [facility] 00:00:00 [place] [facility] HPV9 2018-10-20 Completed [facility] 00:00:00 [place] [facility] HPV9 2018-10-20 Completed [facility] 00:00:00 [place] [facility] HPV9 2018-10-20 Completed [facility] 00:00:00 [place] [facility] HPV9 2018-10-20 Completed [facility] 00:00:00 [place] [facility] HPV9 2018-10-20 Completed [facility] 00:00:00 [place] [facility] HPV9 2018-10-20 Completed [facility] of 00:00:00 [place] [facility] HPV9 2018-10-20 Completed [facility] of 00:00:00 [place] [facility] HPV9 2018-10-20 Completed [facility] of 00:00:00 [place] [facility] HPV9 2018-10-20 Completed [facility] of 00:00:00 [place] [facility] HPV9 2018-10-20 Completed [facility] 00:00:00 [place] [facility] HPV9 2018-10-20 Completed [facility] 00:00:00 [place] [facility] HPV9 2018-10-20 Completed [facility] 00:00:00 [place] [facility] HPV9 2018-10-20 Completed [facility] 00:00:00 [facility] HPV9 2018-10-20 Completed [facility] 00:00:00 [facility] HPV9 2018-10-20 Completed [facility] 00[facility]00:00 [facility] HPV9 2018-10-20 Completed [facility] 00:00:00 [facility] HPV9 2018-10-20 Completed [facility] 00:00:00 [facility] HPV9 2018-10-20 Completed [facility] 00:00:00 [facility] HPV9 2018-10-20 Completed [facility] 00:00:00 [facility] HPV9 2018-10-20 Completed [facility] 00:00:00 [facility] HPV9 2018-10-20 Completed [facility] 00:00:00 [facility] HPV9 2018-10-20 Completed [facility] 00:00:00 [facility] HPV9 2018-10-20 Completed [facility] 00:00:00 [facility] HPV9 2017-04-10 Completed [facility] 00:00:00 [facility] HPV9 2017-04-10 Completed [facility] 00:00:00 [facility] HPV9 2017-04-10 Completed [facility] 00:00:00 [facility] HPV9 2017-04-10 Completed [facility] 00:00:00 [facility] HPV9 2017-04-10 Completed [facility] 00:00:00 [facility] HPV9 2017-04-10 Completed [facility] 00:00:00 [facility] HPV9 2017-04-10 Completed [facility] 00:00:00 [facility] HPV9 2017-04-10 Completed [facility] 00:00:00 [facility] HPV9 2017-04-10 Completed [facility] 00:00:00 [facility] HPV9 2017-04-10 Completed [facility] 00:00:00 [facility] HPV9 2017-04-10 Completed [facility] 00:00:00 [facility] HPV9 2017-04-10 Completed [facility] 00:00:00 [facility] HPV9 2017-04-10 Completed [facility] 00:00:00 [facility] HPV9 2017-04-10 Completed [facility] 00:00:00 [facility] HPV9 2017-04-10 Completed [facility] 00:00:00 [facility] HPV9 2017-04-10 Completed [facility] 00:00:00 [facility] HPV9 2017-04-10 Completed [facility] 00:00:00 [facility] HPV9 2017-04-10 Completed [facility] 00:00:00 [facility] HPV9 2017-04-10 Completed [facility] 00:00:00 [facility] HPV9 2017-04-10 Completed [facility] 00:00:00 [facility] HPV9 2017-04-10 Completed [facility] 00:00:00 [facility] HPV9 2017-04-10 Completed [facility] 00:00:00 [facility] HPV9 2017-04-10 Completed [facility] 00:00:00 [facility] HPV9 2017-04-10 Completed [facility] 00:00:00 [facility] HPV9 2017-04-10 Completed [facility] 00:00:00 [facility] HPV9 2017-04-10 Completed [facility] 00:00:00 [facility] HPV9 2017-04-10 Completed [facility] 00:00:00 [facility] HPV9 2017-04-10 Completed [facility] 00:00:00 [facility] HPV9 2017-04-10 Completed [facility] 00:00:00 [facility] HPV9 2017-04-10 Completed [facility] 00:00:00 [facility] HPV9 2017-04-10 Completed [facility] 00:00:00 [facility] HPV9 2016-07-16 Completed [facility] 00:00:00 [facility] HPV9 2016-07-16 Completed [facility] 00:00:00 [facility] HPV9 2016-07-16 Completed [facility] 00:00:00 [facility] HPV9 2016-07-16 Completed [facility] 00:00:00 [facility] HPV9 2016-07-16 Completed [facility] 00:00:00 [facility] HPV9 2016-07-16 Completed [facility] 00:00:00 [facility] HPV9 2016-07-16 Completed [facility] 00:00:00 [facility] HPV9 2016-07-16 Completed [facility] 00:00:00 [facility] HPV9 2016-07-16 Completed [facility] 00:00:00 [facility] HPV9 2016-07-16 Completed [facility] 00:00:00 [facility] HPV9 2016-07-16 Completed [facility] 00:00:00 [facility] HPV9 2016-07-16 Completed [facility] 00:00:00 [facility] HPV9 2016-07-16 Completed [facility] 00:00:00 [facility] HPV9 2016-07-16 Completed [facility] 00:00:00 [facility] HPV9 2016-07-16 Completed [facility] 00:00:00 [facility] HPV9 2016-07-16 Completed [facility] 00:00:00 [facility] HPV9 2016-07-16 Completed [facility] 00:00:00 [facility] HPV9 2016-07-16 Completed [facility] 00:00:00 [facility] HPV9 2016-07-16 Completed [facility] 00:00:00 [facility] HPV9 2016-07-16 Completed [facility] 00:00:00 [facility] HPV9 2016-07-16 Completed [facility] 00:00:00 [facility] HPV9 2016-07-16 Completed [facility] 00:00:00 [facility] HPV9 2016-07-16 Completed [facility] 00:00:00 [facility] HPV9 2016-07-16 Completed [facility] 00:00:00 [facility] HPV9 2016-07-16 Completed [facility] 00:00:00 [facility] HPV9 2016-07-16 Completed [facility] 00:00:00 [facility] HPV9 2016-07-16 Completed [facility] of 00:00:00 [facility] HPV9 2016-07-16 Completed University of 00:00:00 [facility] HPV9 2016-07-16 Completed University [facility] 00:00:00 [facility] HPV9 2016-07-16 Completed [facility] 00:00:00 [facility] HPV9 2016-07-16 Completed [facility] of 00:00:00 [facility] HPV9 Unknown Completed [facility] HPV9 Unknown Completed [facility] HPV9 Unknown Completed [facility] HPV9 Unknown Completed [facility] HPV9 Unknown Completed [facility] HPV9 Unknown Completed [facility] HPV9 Unknown Completed [facility] HPV9 Unknown Completed [facility] HPV9 Unknown Completed [facility] HPV9 Unknown Completed [facility] HPV9 Unknown Completed [facility] HPV9 Unknown Completed [facility] HPV9 Unknown Completed [facility] HPV9 Unknown Completed [facility] HPV9 Unknown Completed [facility] HPV9 Unknown Completed [facility] HPV9 Unknown Completed [facility] HPV9 Unknown Completed [facility] HPV9 Unknown Completed [facility] HPV9 Unknown Completed [facility] HPV9 Unknown Completed [facility] HPV9 Unknown Completed [facility] HPV9 Unknown Completed [facility] HPV9 Unknown Completed [facility] HPV9 Unknown Completed [facility] HPV9 Unknown Completed [facility] HPV9 Unknown Completed [facility] Vital Signs Vital Name Observation Time Observation Value Comments Source Systolic blood 2023-05-02 16:58:00 118 mm[Hg] Univer sity of pressure [facility] Diastolic blood 2023-05-02 16:58:00 74 mm[Hg] Unive rsity of pressure [facility] Heart rate 2023-05-02 16:58:00 106 /min [facility] Body temperature 2023-05-02 16:58:00 36.61 [facility] 2023-05-02 16:58:00 16 /min [facility] Body height 2023-05-02 16:58:00 160 cm [facility] Body weight 2023-05-02 16:58:00 62.007 kg [facility] BMI 2023-05-02 16:58:00 24.22 kg/m2 [facility] Systolic blood 2023-04-04 18:17:00 113 mm[Hg] Univer sity of pressure [facility] Diastolic blood 2023-04-04 18:17:00 70 mm[Hg] Unive rsity of pressure [facility] Heart rate 2023-04-04 18:17:00 70 /min [facility] Body temperature 2023-04-04 18:17:00 36.72 Paige Univ ersity of [facility] Respiratory rate 2023-04-04 18:17:00 16 /min Univ ersity of [facility] Body height 2023-04-04 18:17:00 160 cm [facility] Body weight 2023-04-04 18:17:00 58.333 kg [facility] BMI 2023-04-04 18:17:00 22.78 kg/m2 [facility] Systolic blood 2023-03-07 20:27:00 110 mm[Hg] Univer sity of pressure [facility] Diastolic blood 2023-03-07 20:27:00 73 mm[Hg] Unive rsity of pressure [facility] Heart rate 2023-03-07 20:27:00 64 /min [facility] Respiratory rate 2023-03-07 20:27:00 18 /min Univ ersity of [facility] Body height 2023-03-07 20:27:00 160 cm [facility] Body weight 2023-03-07 20:27:00 59.421 kg [facility] BMI 2023-03-07 20:27:00 23.21 kg/m2 [facility] Systolic blood 2023-02-14 01:00:00 120 mm[Hg] Univer sity of pressure [facility] Diastolic blood 2023-02-14 01:00:00 79 mm[Hg] Unive rsity of pressure [facility] Heart rate 2023-02-14 01:00:00 87 /min [facility] Respiratory rate 2023-02-14 01:00:00 18 /min Univ ersity of [facility] Oxygen saturation in 2023-02-14 01:00:00 99 /min University of Arterial blood by [facility] murali Pulse oximetry Branch Body temperature 2023-02-13 18:47:00 36.61 Paige Univ ersity of [facility] Systolic blood 2023-02-11 15:26:00 122 mm[Hg] Univer sity of pressure [facility] Diastolic blood 2023-02-11 15:26:00 81 mm[Hg] Unive rsity of pressure [facility] Heart rate 2023-02-11 15:26:00 75 /min [facility] Body temperature 2023-02-11 15:26:00 36.06 Paige Univ ersity of [facility] Respiratory rate 2023-02-11 15:26:00 18 /min Univ ersity [facility] Body height 2023-02-11 15:26:00 160 cm [facility] Body weight 2023-02-11 15:26:00 58.06 kg [facility] BMI 2023-02-11 15:26:00 22.67 kg/m2 [facility] Systolic blood 2023-02-08 09:30:00 113 mm[Hg] Univer sity of pressure [facility] Diastolic blood 2023-02-08 09:30:00 88 mm[Hg] Unive rsity of pressure [facility] Heart rate 2023-02-08 09:30:00 79 /min [facility] Respiratory rate 2023-02-08 09:30:00 15 /min Univ ersity of [facility] Oxygen saturation in 2023-02-08 09:30:00 95 /min University of Arterial blood by [facility] Pulse oximetry Branch Body temperature 2023-02-08 07:14:00 37.17 Paige Univ ersity of [facility] Body weight 2023-02-08 07:14:00 58.968 kg [facility] BMI 2023-02-08 07:14:00 23.03 kg/m2 [facility] Systolic blood 2022-06-29 20:54:00 119 mm[Hg] Univer sity of pressure [facility] Diastolic blood 2022-06-29 20:54:00 82 mm[Hg] Unive rsity of pressure [facility] Heart rate 2022-06-29 20:54:00 78 /min [facility] Body temperature 2022-06-29 20:54:00 37.06 Paige Univ ersity [facility] Respiratory rate 2022-06-29 20:54:00 18 /min Univ ersity [facility] Body height 2022-06-29 20:54:00 160 cm [facility] Body weight 2022-06-29 20:54:00 58.06 kg [facility] BMI 2022-06-29 20:54:00 22.67 kg/m2 [facility] Systolic blood 2022-05-18 14:17:00 106 mm[Hg] Univer sity of pressure [facility] Diastolic blood 2022-05-18 14:17:00 80 mm[Hg] Unive rsity of pressure [facility] Heart rate 2022-05-18 14:17:00 78 /min [facility] Body temperature 2022-05-18 14:17:00 36.67 Paige Univ ersity [facility] Respiratory rate 2022-05-18 14:17:00 18 /min Univ ersity of [facility] Body height 2022-05-18 14:17:00 160 cm [facility] Body weight 2022-05-18 14:17:00 56.7 kg [facility] BMI 2022-05-18 14:17:00 22.14 kg/m2 [facility] Oxygen saturation in 2022-05-18 14:17:00 99 /min University of Arterial blood by [facility] Pulse oximetry Branch Systolic blood 2022-01-11 14:20:00 109 mm[Hg] Univer sity of pressure [facility] Diastolic blood 2022-01-11 14:20:00 71 mm[Hg] Unive rsity of pressure [facility] Heart rate 2022-01-11 14:20:00 76 /min [facility] Body temperature 2022-01-11 14:20:00 36.89 Paige Univ ersity of [facility] Respiratory rate 2022-01-11 14:20:00 18 /min Univ ersity of [facility] Body height 2022-01-11 14:20:00 162.6 cm [facility] Body weight 2022-01-11 14:20:00 61.236 kg [facility] BMI 2022-01-11 14:20:00 23.17 kg/m2 [facility] Procedures Procedure Date / Time Performing Clinician Source Performed URINE CULTURE 2023-05-02 17:05:00 Minh Krishnamurthy [facility] POCT URINALYSIS W/O 2023-05-02 00:00:00 [facility] 2023-04-05 05:01:00 [facility]/O 2023-04-04 00:00:00 [facility] TRANSVAGINAL 2023-03-07 20:54:56 Minh Krishnamurthy [facility] N[facility] 2023-03-07 05:01:00 Doctor Unassigned, No [facility] ULTRASOUND [facility] POCT TEST 2023-03-07 00:00:00 [facility] W/O 2023-03-07 00:00:00 [facility]IR[facility] (LAB 2023-02-13 23:50:00 Esdras [facility] ONLY) [facility] Branch URINALYSIS 2023-02-13 23:29:00 Anna Brown [facility] BASIC METABOLIC PANEL 2023-02-13 21:01:00 Anna Brown [facility] (NA, K, CL, CO2, [facility] Branch GLUCOSE, BUN, CREATININE, CA) TOTAL BETA HCG ASSAY 2023-02-13 21:01:00 Anna Brown [facility] CBC WITH DIFF 2023-02-13 21:01:00 Anna Brown [facility] HB ABO GROUPING 2023-02-13 21:01:00 [facility] o f [facility] CONSENT/REFUSAL FOR 2023-02-13 18:38:52 Doctor Unassigned, No [facility] [place] [facility] Name [facility] POCT TEST 2022-06-29 00:00:00 [facility] 2022-05-18 14:24:00 Mona Garcia [facility] CONSENT/REFUSAL FOR 2022-05-18 14:12:43 Doctor Unassigned, No [facility] [place] [facility] Name [facility] Encounters Start End Encounter Admission Attending Care Care Encounter Source Date/Time Date/Time Type Type Clinicians Facility Department ID 2023-06-04 2023-06-04 Outpatient P [facility] [id number] Univers 13:00:00 13:00:00 ity of [facility] 2023-05-30 2023-05-30 Outpatient R MINH KRISHNAMURTHY [facility] U [facility] [id number] Univers 13:15:00 13:15:00 MINH KRISHNAMURTHY ity of [facility] 2023-05-22 2023-05-22 Telephone [facility] 1.2.840.11 4 [id number] Univers 00:00:00 00:00:00 Minh nagy 350.1.13.10 ity [place] [id number] [address] 2023-05-06 2023-05-06 Patient Doctor [facility] 1.2.840.114 [id number] [facility] 00:00:00 00:00:00 Secure Msg Unassigned, MICHAEL 350.1.13.10 [place]y [place] [id number] [address] 2023-05-02 2023-05-02 Routine [facility] 1.2.840.114 [id number] Univers 11:45:00 12:06:47 yakov Minhrashid DEGROOT 350.1.13.10 ity of Visit WOMEN'S 4.2.7.2.686 [facility] [id number] [address] 2023-05-02 2023-05-02 Outpatient R MINH KRISHNAMURTHY [facility] U [facility] [id number] Univers 11:45:00 12:06:47 MINH KRISHNAMURTHY ity [facility] 2023-04-15 2023-04-15 Telephone Dexter [facility] 1.2.840.114 10 [id number] Univers 00:00:00 00:00:00 Chelle [place] 350.1.13.10 it y of PEDIATRIC 4.2.7.2.686 Te [facility] [id number] [address] 2023-04-15 2023-04-15 Patient Doctor [facility] 1.2.934.439 [id number] Univers 00:00:00 00:00:00 Secure Msg Unassigned, ZANE 350.1.13.10 ity of [place] P[facility]IATRIC 4.2.7.2.686 [facility] [id number] [address] 2023-04-09 2023-04-09 Telephone Zaida [facility] 1.2.840.11 4 [id number] Univers 00:00:00 00:00:00 yakov Minhrashid DEGR[place] 350.1.13.10 ity of WOMEN'S 4.2.7.2.686 [facility] [id number] [address] 2023-04-09 2023-04-09 Patient Doctor [facility] 1.2.208.394 [id number] Univers 00:00:00 00:00:00 Secure Msg Unassigned ZANE 350.1.13.10 ity of [place] PEDIATRIC 4.2.7.2.686 [facility] [id number] [address] 2023-04-05 2023-04-05 Outpatient R MINH KRISHNAMURTHY [facility] U [facility] [id number] Univers 11:30:00 12:02:21 MINH KRISHNAMURTHY ity [facility] 2023-04-05 2023-04-05 Nurse Assessor Lab, Ang - Aristeo [facility] 1.2.840.1 14 [id number] Univers 11:30:00 12:02:21 Visit Sol Krishnamurthysol HEALTH 350.1.13 .10 ity of [place] 4.2.7.2.686 Saúl as CHRIS?BLEA [id number] N[place] dical [address] MEDICAL OFFICE BUILDING 2023-04-05 2023-04-05 Outpatient R [facility] [id number] Univers 10:15:00 10:15:00 ity of [facility] 2023-04-05 2023-04-05 Orders Doctor CELINE 1.2.840.114 [id number] Univers 00:00:00 00:00:00 Only Unassigned, JOSÉ MIGUEL 350.1.13.10 ity of [place] [facility] 4.2.7.2.686 Saúl as [id number] [place] [address] Branch 2023-04-04 2023-04-04 Outpatient R BERTRANDRonaldoDUVAL [facility] [id number] Univers 13:15:00 13:36:58 BERTRAND-DUVAL, MINH ity of [facility] 2023-04-04 2023-04-04 Routine [facility] 1.2.840.114 [id number] Univers 13:15:00 13:36:58 s Minh ZANE 350.1.13.10 ity of Visit [place] [id number] [facility] 134 Branch 2023-04-04 2023-04-04 Case [facility] 1.2.840.114 10 [id number] Univers 00:00:00 00:00:00 Management s, Minh MICHAEL 350.1.13.10 ity [facility] [place] [id number] N[place] dical [facility] [address] BUILDING 2023-04-04 2023-04-04 Telephone [facility] 1.2.840.11 4 [id number] Univers 00:00:00 00:00:00 s Minh ZANE 350.1.13.10 [place] [id number] [address] 2023-04-02 2023-04-02 Nurse Assessor Lab, Ang - Db [facility] 1.2.840.1 14 [id number] Univers 08:30:00 08:45:00 Visit BertrandRonaldoChase [facility] 350.1.13 .10 ity of [place] 4.2.7.2.686 [place] CHRIS?BLEA [id number] [place] dical [address] MEDICAL OFFICE BUILDING 2023-04-02 2023-04-02 Outpatient R BERTRANDRonaldoCHASE [facility] U [facility] [id number] Univers 08:30:00 08:30:00 [facility] ity of [facility] 2023-03-29 2023-03-29 Outpatient R [facility] [id number] Univers 16:00:00 16:00:00 ity of [facility] 2023-03-26 2023-03-26 Telephone [facility] 1.2.840.11 4 [id number] Univers 00:00:00 00:00:00 s, Minh ZANE 350.1.13.10 [place] [id number] [address] 2023-03-08 2023-03-08 Telephone [facility] 1.2.840.11 4 [id number] Univers 00:00:00 00:00:00 s Minhrashid DEGROOT 350.1.13.10 [place] [id number] [address] 2023-03-08 2023-03-08 Patient Doctor [facility] 1.2.119.374 [id number] Univers 00:00:00 00:00:00 Secure Msg Unassigned, ZANE 350.1.13.10 [place] [place] [id number] [address] 2023-03-07 2023-03-07 Outpatient R BERTRANDDUVAL [facility] U [facility] [id number] Univers 15:00:00 15:51:03 MINH KRISHNAMURTHY ity [facility] 2023-03-07 2023-03-07 Initial Zaida [facility] 1.2.840.114 [id number] Univers 15:00:00 15:51:03 sMinh 350.1.13.10 ity of [place] [id number] [facility] 134 Branch 2023-03-07 2023-03-07 Orders Doctor CELINE 1.2.840.114 [id number] Univers 00:00:00 00:00:00 Only Unassigned, JOÉS MIGUEL 350.1.13.10 ity of [place] [facility] 4.2.7.2.686 [place] as [id number] [facility] 009 Branch 2023-02-25 2023-02-25 Outpatient R [facility] [id number] Univers 09:45:00 09:45:00 ity [facility] 2023-02-15 2023-02-15 Out[facility] [id number] Univers 09:00:00 09:00:00 [facility] 2023-02-14 Outpatient R [facility] [id number] Univers 08:00:00 08:00:00 [facility] 2023-02-14 2023-02-14 Telephone CATHY Solares 1.2.840.114 10 [id number] Univers 00:00:00 00:00:00 Mery Y HEALTH 350.1.13.10 i ty of [place] [id number] [facility] 113 Branch 2023-02-13 2023-02-13 Emergency X ESDRAS MC [facility] ERT [id number] Univers 13:50:00 20:24:00 SEDRAS [facility] 2023-02-13 2023-02-13 Emergency Dalmedo, TRAUMA 1.2.840.114 [id number] Univers 13:50:00 20:24:[address] [facility] 350.1.13.10 [place] [id number] [facility] 014 Branch 2023-02-13 2023-02-13 Emergency X [facility] ERT [id number] Univers 13:01:00 13:14:00 ity of [facility] 2023-02-12 2023-02-12 Outpatient P [facility] [id number] Univers 08:45:00 08:45:00 ity of [facility] 2023-02-12 2023-02-12 Telephone [employer], UNIVERSIT 1.2.840.114 1 [id number] Univers 00:00:00 00:00:00 [facility] 350.1.13.10 i ty of CL[place] [id number] [facility] 104 Branch 2023-02-12 2023-02-12 Telephone Chaljub, UNIVERSIT 1.2.840.114 1 [id number] Univers 00:00:00 00:00:00 [facility] 350.1.13.10 i ty of CL[place] [id number] [facility] 113 Branch 2023-02-12 2023-02-12 Telephone [employer], UNIVERSIT 1.2.840.114 1 [id number] Univers 00:00:00 00:00:00 [facility] 350.1.13.10 i ty of CL[place] [id number] [facility] 113 Branch 2023-02-11 2023-02-11 Nurse Assessor [facility] UNIVERSIT 1.2.840.114 1 [id number] Univers 13:45:00 14:00:00 Visit Sonia Poon [facility] 350.1.13.10 ity of CL[place] [id number] [facility] 316 Branch 2023-02-11 2023-02-11 Outpatient R MARYLOU [facility] [id number] Univers 10:15:00 11:12:25 SONIA itjeniffer [facility] 2023-02-11 2023-02-11 Routine Trimester, [facility] UNIVERSIT 1.2.840.114 [id number] Univers 10:15:00 11:12:25 Sonia Poon Y HEALTH 350.1.13.10 it[place] of [place] CLIN[place] [id number] [facility] [address] 2023-02-11 2023-02-11 Patient Masoud, UNIVERSIT 1.2.840.114 [id number] Univers 00:00:00 00:00:00 Secure Msg Quinn Y HEALTH 350.1.13.10 it[place] of CL[id number] [address] [address] 2023-02-08 2023-02-08 Emergency X FADUMO, [facility] ERT [id number] Univers 02:15:00 04:47:00 [facility] 2023-02-08 2023-02-08 Emergency Fadumo, TRAUMA 1.2.877.790 [id number] Univers 02:15:00 04:47:00 [facility] 350.1.13.10 [place] [id number] [facility] 014 [address] 2023-01-24 2023-01-24 Outpatient R MINH KRISHNAMURTHY [facility] U TMB [id number] Univers 15:00:00 15:00:00 MINH KRISHNAMURTHY [facility] 2023-01-15 2023-01-15 Outpatient R CATHIE [facility] [id number] Univers 09:45:00 09:45:00 WILIAM [facility] 2023-01-11 2023-01-11 Outpatient R MINH KRISHNAMURTHY [facility] U TMB [id number] Univers 10:00:00 10:00:00 MINH KRISHNAMURTHY [facility] 2022-09-21 2022-09-21 Outpatient R TATIANA DONALD [facility] B [id number] Univers 13:00:00 13:00:00 TATIANA DONALD [facility] 2022-06-29 2022-06-29 Outpatient R TATIANA DONALD [facility] B [id number] Univers 14:15:00 15:02:15 TATIANA DONALD itjeniffer [facility] 2022-06-29 2022-06-29 Initial Casie MDCHANELLE AGUILAR 1.2.840.114 [id number] Univers 14:15:00 15:02:15 Tatiana DEGROOT 350.1.13.10 i ty of Visit WOMEN'S 4.2.7.2.686 [facility] [id number] [facility] [address] 2022-05-18 2022-05-18 Emergency [facility] 1.2.840.114 [id number] Univers 09:18:00 09:56:00 Mona RODRIGUEZ 350.1.13.10 ity [facility] 4.2.7.2.686 [facility] [id number] [facility] 084 [address] 2022-05-18 2022-05-18 Emergency [facility] [id number] Univers 09:18:00 09:56:00 MONA [facility] 2022-02-12 2022-02-12 Outpatient R SHARMAINE [facility] [id number] Univers 13:15:00 13:15:00 TRACE [place] o f [facility] 2022-01-11 2022-01-11 Office Aster Hernandez [facility] 1.2.840.114 [id number] Univers 09:00:00 09:43:54 Visit ZANE 350.1.13.10 it y of WOMEN'S 4.2.7.2.686 [facility] [id number] [facility] [address] 2022-01-11 2022-01-11 Outpatient R ASTER HERNANDEZ [facility] [id number] Univers 09:00:00 09:43:54 ity [facility] 2022-01-11 2022-01-11 Outpatient R ASTER HERNANDEZ [facility] [id number] Univers 09:00:00 09:00:00 ity [facility] 2022-01-10 2022-01-10 Outpatient R SHARMAINE [facility] [id number] Univers 13:15:00 13:15:00 TRACE saeed [facility] 2022-01-10 2022-01-10 Outpatient R SHARMAINE [facility] [id number] Univers 13:15:00 13:15:00 TRACE saeed [facility] 2022-01-09 2022-01-09 Office Sharmaine [facility] 1.2.840.114 [id number] Univers 14:00:00 14:30:32 Visit Wendydoragemini Mendosa NURSE SANE 350.1.13.10 ity [facility] 4.2.7.2.686 Saúl as MATERNAL [id number] [facility] ical & CHILD [address] [place] [address] 2022-01-09 2022-01-09 Outpatient Deondre SCHMID [facility] [id number] Univers 14:00:00 14:30:32 WENDYGEMINI saeed [facility] 2022-01-09 2022-01-09 Outpatient Deondre SCHMID [facility] [id number] Univers 14:00:00 14:30:32 [facility] [place] [facility] 2022-01-09 2022-01-09 Orders Doctor CELINE 1.2.840.114 [id number] Univers 00:00:00 00:00:00 Only Unassigned, JOSÉ MIGUEL 350.1.13.10 [facility] 4.2.7.2.686 Saú[place] as [id number] [address] 2021-11-14 2021-11-14 Outpatient ASTER LAGUNA [facility] [id number] Univers 09:30:00 09:30:00 ity of [facility] Results Test Description Test Time Test Comments Results Result Comments Source POCT URINALYSIS W/O SPECIFIC GRAVITY 2023-05-02 16:58:00 Test Item Value Reference Range Interpretation Comme [...] code = 3257) n/a Negative - Negative [facility] URINALYSIS W/O SPECIFIC [id number] 16:58:00 Test Item Value Reference Range Interpretation Comments [...] code = 3257) n/a Negative - Negative [facility] URINALYSIS W/O SPECIFIC [id number] 18:14:00 Test Item Value Reference Range Interpretation [...] code = 3257) n/a Negative - [facility] [id number] 18:14:00 Test Item Value Reference Range Interpretation [...] code = 3257) n/a Negative - Negative [facility] [id number] 20:44:00 Test Item Value Reference Range Interpretation [...] code = 3257) N/A Negative - Negative [facility] [id number] 20:43:00 Test Item Value Reference Range Interpretation Comments POCT PREG (test code = 1605) Positive On board controls acceptable with C Yes Line (test code = 3574) POCT PREG LOT # (test code = 3575) POCT PREG TEST DATE (test code = 3576) [facility] ([facility] Only)2023-02-13 23:59:00 Test Item Value Reference Range Interpretation Comments ABO & RH (test code = 20) O Positive [facility] HCG [id number] 22:07:06 Test Item Value Reference Range Interpretation Comments BETA HCG (test 61841.00 See_Comment [Automated m essage] code = The system [employer] [id number]) generated this result transmit charlene reference range : Non- fe male and male patien ts: <5 mIU/mL. The reference range was not used to interpret this result as normal/abnormal . SONALI (test code Gestational Age ? ? = SONALI) ?Range (mIU/mL) 1-10 ?Weeks ?33-38121359-14 Weeks ?98489-31524288-27 Weeks ?3622-24247198-49 Weeks ?3613-611630 Biotin has been reported to cause a negative bias, interpret results relative to patient's use of biotin. [facility] METABOLIC PANEL (NA, K, CL, CO2, GLUCOSE, BUN, CREATININE, CA)2023-02-13 21:29:48 Test Item Value Reference Range Interpretation Comments NA (test code = 136 mmol/L 135-145 2757598450) K (test code = 3.9 mmol/L 3.5-5.0 1200021654) CL (test code = 107 mmol/L 98-108 3537698295) CO2 TOTAL (test code = 23 mmol/L 23-31 6143843335) AGAP (test code = 6 2-16 5743568258) BUN (test code = 9 mg/dL 7-23 7776654984) GLUCOSE (test code = 80 mg/dL 70-110 4911084630) CREATININE (test code = 0.45 mg/dL 0.50-1.04 L 3998344447) CALCIUM (test code = 8.9 mg/dL 8.6-10.6 3187602538) eGFR (test code = 175.9 mL/min/1.73m2 5630070252) SONALI (test code = SONALI) Association of [...] tests). Lab Interpretation Abnormal (test code = 20321-0) [facility] WITH [id number] 21:21:23 Test Item Value Reference Range Interpretation Comments WBC (test code = 7.74 See_Comment [Automated 5790-2) message] The sy stem which generated this result transmitted reference range : 4.30 - 11.10 10*3/?L. The reference range was not used to interpret this result as normal/abnormal . RBC (test code = 4.32 See_Comment [Automated 789-8) message] The sy stem which generated this [...] (test code = 38.4 fL 39.0-49.9 L 43995-1) RDW-CV (test code = 12.5 % 12.0-15.5 788-0) PLT (test code = 451 See_Comment H [Automated 777-3) message] The sy stem which generated this result transmitted reference range : 166 - 358 10*3/ ?L. The reference r dannie was not used to interpret this result as normal/abnormal . MPV (test code = 8.5 fL 9.5-12.9 L 77524-7) IPF % (test code = 1.0 % 1.3-7.7 L Platelet count 4734243932) measured by fluorescence method. NRBC/100 WBC (test 0.0 See_Comment [Automat ed code = 7760878757) message] The system which generated this result transmitted reference range : 0.0 - 10.0 /100 WBCs. The refer ence range was not u sed to interpret th is result as normal/abnormal . NRBC x10^3 (test code See_Comment [Auto mated = 3216846542) message] The s ystem which generated this result transmitted reference range : 10*3/?L. The reference range was not used to interpret this result as normal/abnormal . GRAN MAT (NEUT) % 51.3 % (test code = 770-8) IMM GRAN % (test code 0.40 % = 4655929976) LYMPH % (test code = 41.7 % 736-9) MONO % (test code = 4.9 % 5905-5) EOS % (test code = 1.3 % 713-8) BASO % (test code = 0.4 % 706-2) GRAN MAT x10^3(ANC) 3.97 10*3/uL 1.88-7.09 (test code = 8146218397) IMM GRAN x10^3 (test 0.03 10*3/uL 0.00-0.06 code = 0428204458) LYMPH x10^3 (test code 3.23 10*3/uL 1.32-3.29 = 731-0) MONO x10^3 (test code 0.38 10*3/uL 0.33-0.92 = 742-7) EOS x10^3 (test code = 0.10 10*3/uL 0.03-0.39 711-2) BASO x10^3 (test code 0.03 10*3/uL 0.01-0.07 = 704-7) Lab Interpretation Abnormal (test code = 12319-7) [facility] - ONCE [id number] 21:14:00 Test Item Value Reference Range Interpretation Comments ABO & RH (test code = 20) O POSITIVE IAT (test code = 1185) Negative [facility] [id number] 20:09:00 Test Item Value Reference Range Interpretation Comments POCT PREG (test code = Negative Not r ecorded per 1605) staff On board controls Yes acceptable with C Line (test code = 3574) POCT PREG LOT # (test code = 3575) POCT PREG TEST DATE (test code = 3576) [facility] [id number] 14:24:00 Test Item Value Reference Range Interpretation Comments POCT PREG (test code = 1605) negative On board controls acceptable with present C Line (test code = 3574) POCT PREG LOT # (test code = 3575) [id number] POCT PREG TEST DATE (test 09-26-2023 code = 3576) Lab Interpretation (test code = Normal 75340-2) [facility]"
[2023-06-01 20:11] LABS: Specific Gravity 1.021 (1.005-1.030)
[2023-06-01 20:19] LABS: Specific Gravity 1.021 (1.005-1.030); Urine Bacteria None Seen /HPF (<20); Urine Bilirubin NEGATIVE (Negative); Urine Blood Negative (Negative); Urine Clarity Extremely Turbid (Clear); Urine Color Yellow (Yellow); Urine Glucose NEGATIVE (Negative); Urine Mucus 1+ /HPF (None Seen); Urine Protein NEGATIVE (Negative); Urine Urobilinogen Normal (Normal); Urine pH 6.5 (5.0-7.0)
--- NOTE | 2023-06-01 21:06 | RAD REPORT ---
EXAM DESCRIPTION: US - OB Limited - 06/01/2023 8:49 pm CLINICAL HISTORY: ABD PAIN COMPARISON: Matter Eval Tm 1 dated 04/17/2023 FINDINGS: A single breech presenting gestation is identified. Heart rate normal at 144 beats/minute. FL:3.3 Centimeters 20 week 2 day The estimated gestational age (EGA) is 20 week 2 day with an THERON of10/17/2023. The placenta is posterior. No placenta previa. The amniotic fluid index is subjectively normal The cervix is closed measuring 3.6 cm. No funneling. The maternal adnexa show no worrisome findings. IMPRESSION: 1. Single, breech gestation with an EGA of 20 week 2 day and an THERON of the 10/17/2023. 3. Posterior placenta. No previa 4. Amniotic fluid index is subjectively normal. 4. Closed cervix.
--- NOTE | 2023-06-01 22:01 | EDPHYS ---
Physician Documentation [facility] Name: Marie Gann Age: 23 yrs Sex: Female : 2000 Arrival Date: 06/01/2023 Time: 18:57 Bed IW1 Private MD: ED Physician Zen Kowalski HPI: 06/01 20:00 This 23 yrs old Female presents to ER via Ambulatory with complaints of Fall cp Injury, 20 Weeks . 20:00 The patient presents to the emergency department with abdominal pain, of the left lower cp quadrant. The estimated gestational age is 20 weeks. 20:00 Previous pregnancies: in previous pregnancies patient has had. Associated signs and cp symptoms: Pertinent negatives: fever, shortness of breath, vaginal bleeding, vaginal discharge. Patient reports slip and fall today in bathroom causing her to strike abdomen against toilet. Patient reports she is approximately 20 weeks gestation and having left lower abdominal pain. 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 - Social history:: Smoking status: Patient denies any tobacco usage or history of. - Immunization history: Last tetanus immunization: unknown. ROS: 20:05 Constitutional: Negative for body aches, chills, fever, poor PO intake, cp 20:05 Eyes: Negative for injury, pain, redness, and discharge, cp 20:05 ENT: Negative for drainage from ear(s), ear pain, sore throat, difficulty swallowing, difficulty handling secretions, 20:05 Cardiovascular: Negative for chest pain, 20:05 Respiratory: Negative for cough, shortness of breath, wheezing, 20:05 Abdomen/GI: Positive for abdominal pain, of the left lower quadrant, Negative for vomiting, diarrhea, constipation, 20:05 : Negative for urinary symptoms, flank pain, vaginal bleeding, vaginal discharge, 20:05 Neuro: Negative for altered mental status, dizziness, headache, loss of consciousness, syncope, weakness, 20:05 All other systems are negative, Exam: 20:10 Constitutional: The patient appears in no acute distress, alert, awake, comfortable, cp non-toxic, well developed, well nourished, 20:10 Head/Face: Normocephalic, atraumatic. cp 20:10 Eyes: Periorbital structures: appear normal, Conjunctiva: normal, no exudate, no injection, Sclera: no appreciated abnormality, Lids and lashes: appear normal, bilaterally, 20:10 ENT: External ear(s): are unremarkable, Nose: is normal, Mouth: Lips: moist, Oral mucosa: pink and intact, moist, Posterior pharynx: is normal, airway is patent, no erythema, no exudate, 20:10 Neck: ROM/movement: is normal, is supple, without pain, no range of motions limitations, 20:10 Chest/axilla: Inspection: normal, 20:10 Cardiovascular: Rate: normal, Rhythm: regular, 20:10 Respiratory: the patient does not display signs of respiratory distress, Respirations: normal, no use of accessory muscles, no retractions, labored breathing, is not present, 20:10 Abdomen/GI: Inspection: abdomen appears normal, Bowel sounds: active, all quadrants, Palpation: soft, in all quadrants, mild abdominal tenderness, in the left lower quadrant, rebound tenderness, is not appreciated, involuntary guarding, is not appreciated, 20:10 Back: pain, is absent, ROM is normal, 20:10 Neuro: Orientation: to person, place \T\ time. Mentation: is normal, Gait: is steady, at a normal pace, without difficulty, Vital Signs: 19:36 Pain 9/10; vc1 19:38 Weight 61.23 kg; Height 5 ft. 4 in. ; vc1 19:39 BP 106 / 75; Pulse 81; Resp 20; Temp 99.1; Pulse Ox 100% ; vc1 23:58 BP 111 / 71; Pulse 88; Resp 19 S; Temp 98.9(O); Pulse Ox 100% on R/A; lg3 19:38 Body Mass Index 23.17 (61.23 kg, 162.56 cm) vc1 19:36 Pain Scale: Adult vc1 [place] Coma Score: 23:53 Eye Response: spontaneous(4). Motor Response: obeys commands(6). Verbal Response: lg3 oriented(5). Total: 15. Trauma Score (Adult): 23:53 Eye Response: spontaneous(1); Verbal Response: oriented(1); Motor Response: obeys lg3 commands(2); Systolic BP: > 89 mm Hg(4); Respiratory Rate: 10 to 29 per min(4); [place] Score: 15; Trauma Score: 12 MDM: 19:44 Patient medically screened. cp 20:00 Differential diagnosis: pre term labor, contusion. cp 22:00 Data reviewed: vital signs, nurses notes, lab test result(s), radiologic studies, cp ultrasound. 22:00 Counseling: I had a detailed discussion with the patient and/or guardian regarding the cp historical points, exam findings, and any diagnostic results supporting the discharge/admit diagnosis, lab results, radiology results, to return to the emergency department if symptoms worsen or persist or if there are any questions or concerns that arise at home. 06/01 19:45 Order name: Urinalysis W/Microscopic; Complete Time: 21:59 cp 06/01 21:59 Interpretation: Normal except: [facility] Extremely Turbid; UKET 2+; UESTR 25; URBC 5-10. cp 06/01 19:45 Order name: PREGU; Complete Time: 21:59 cp 06/01 19:45 Order name: US OB Limited: fall, left lower abdomen pain; Complete Time: 21:59 cp Administered Medications: No medications were administered Disposition: 06/02 21:08 Co-signature as Attending Physician, Zen Kowalski MD I agree with the assessment sp4 and plan of care. I reviewed the patient's care provided by the Advanced Practice Provider and agree with the diagnosis and treatment plan. Disposition Summary: 06/01/23 22:00 Discharge Ordered Notes: Location: Home cp Problem: new cp Symptoms: have improved cp Condition: Stable cp Diagnosis - Other specified related conditions, second trimester cp - Lower abdominal pain, unspecified cp Followup: cp - With: Private Physician - When: 1 - 2 days - Reason: Recheck today's complaints Discharge Instructions: - Discharge Summary Sheet cp - Abdominal Pain During cp - Second Trimester of cp - Preventing Injuries During cp Forms: - Medication Reconciliation Form cp - Thank You Letter cp - Antibiotic Education cp - Prescription Opioid Use cp - Patient Portal Instructions cp - Leadership Thank You Letter cp Signatures: Dispatcher [employer] EDMS Mike Bell PA PA cp Shannon Newton RN RN lg3 Mercy Caballero RN RN vc1 Zen Kowalski MD MD sp4 Corrections: (The following items were deleted from the chart) 21:19 1104 20:00 Patient reports slip and fall today in bathroom onto abdomen. Patient cp reports she is approximately 20 weeks gestation and having left lower abdominal pain. cp
--- NOTE | 2023-06-01 22:01 | ER ---
Nurse's Notes [facility] Name: Marie Gann Age: 23 yrs Sex: Female : 2000 Arrival Date: 06/01/2023 Time: 18:57 Bed IW1 Private MD: Diagnosis: Other specified related conditions, second trimester;Lower abdominal pain, unspecified Presentation: 06/01 19:36 Chief complaint: Patient states: Cleaning restroom and tripped and hit stomach on vc1 toilet. Coronavirus screen: Vaccine status: Patient reports being unvaccinated. Client denies travel out of the [place] in the last 14 days. At this time, the client does not indicate any symptoms associated with coronavirus-19. Ebola Screen: Patient negative for fever greater than or equal to 101.5 degrees Fahrenheit, and additional compatible Ebola Virus Disease symptoms Patient denies exposure to infectious person. Patient denies travel to an Ebola-affected area in the 21 days before illness onset. No symptoms or risks identified at this time. Risk Assessment: Do you want to hurt yourself or someone else? Patient reports no desire to harm self or others. Onset of symptoms was June 01, 2023 at 18:40. 19:36 Method Of Arrival: Ambulatory vc1 19:36 Acuity: AD 3 vc1 23:55 Care prior to arrival: None. Mechanism of Injury: No Mechanism of Injury. Trauma event lg3 details: Injury occurred in the [facility]. 23:56 Initial Sepsis Screen: Does the patient meet any 2 criteria? No. Patient's initial lg3 sepsis screen is negative. Does the patient have a suspected source of infection? No. Patient's initial sepsis screen is negative. Triage Assessment: 23:54 General: Appears in no apparent distress. comfortable, Behavior is calm, cooperative. lg3 Pain: Complains of pain in abdomen. 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 LMP 01/03/2023, Verified, EDC 10/10/2023, Gestational age from LMP: 21 weeks 3 vc1 days Trauma Activation: Not Applicable Physician: ED Physician; Name: ; Notified At: ; Arrived At: Physician: General Surgeon; Name: ; Notified At: ; Arrived At: Physician: Radiology; Name: ; Notified At: ; Arrived At: Physician: Respiratory; Name: ; Notified At: ; Arrived At: Physician: Lab; Name: ; Notified At: ; Arrived At: Historical: - Allergies: 19:38 No Known Allergies; vc1 - PMHx: 19:38 Ovarian cyst; seasonal allergies; vc1 - PSHx: 19:38 None; vc1 - Immunization history:: Client reports having NOT received the Covid vaccine. - Social history:: Smoking status: Patient denies any tobacco usage or history of. - Immunization history: Last tetanus immunization: unknown. Screenin:38 Abuse screen: Denies threats or abuse. Nutritional screening: No deficits noted. vc1 Tuberculosis screening: No symptoms or risk factors identified. 23:56 [facility] ED Fall Risk Assessment (Adult) History of falling in the last 3 months, lg3 including since admission Yes- single mechanical fall (1 pt). Primary Survey: 23:53 NO uncontrolled hemorrhage observed. A: The client is awake and alert. The airway is lg3 patent. Breathing/Chest: Spontaneous respiratory effort, equal unlabored respirations, breath sounds clear bilaterally, regular pattern, symmetrical chest rise and fall. Circulation: No external hemorrhage present. Regular and strong central pulse, skin warm/dry/normal color. Disability Client is alert. Client responds to verbal stimuli. Exposure/Environment: All clothing and personal items were removed. Forensic evidence collection is not deemed to be indicated at this time. Items placed in patient belonging bag. Reassessment Alertness and Airway: Awake and alert. The airway is patent. Breathing: Spontaneous respiratory effort, equal unlabored respirations, breath sounds clear bilaterally, regular pattern with symmetrical chest rise and fall. Circulation: No external hemorrhage noted. Regular and strong central pulse, skin warm/dry/normal color. Disability: Pupils Alert Verbal stimuli. Assessment: 23:53 Reassessment: Patient appears in no apparent distress at this time. No changes from lg3 previously documented assessment. Patient and/or family updated on plan of care and expected duration. Pain level reassessed. Patient is alert, oriented x 3, equal unlabored respirations, skin warm/dry/pink. Vital Signs: 19:36 Pain 9/10; vc1 19:38 Weight 61.23 kg; Height 5 ft. 4 in. ; vc1 19:39 BP 106 / 75; Pulse 81; Resp 20; Temp 99.1; Pulse Ox 100% ; vc1 23:58 BP 111 / 71; Pulse 88; Resp 19 S; Temp 98.9(O); Pulse Ox 100% on R/A; lg3 19:38 Body Mass Index 23.17 (61.23 kg, 162.56 cm) vc1 19:36 Pain Scale: Adult vc1 [place] Coma Score: 23:53 Eye Response: spontaneous(4). Motor Response: obeys commands(6). Verbal Response: lg3 oriented(5). Total: 15. Trauma Score (Adult): 23:53 Eye Response: spontaneous(1); Verbal Response: oriented(1); Motor Response: obeys lg3 commands(2); Systolic BP: > 89 mm Hg(4); Respiratory Rate: 10 to 29 per min(4); [place] Score: 15; Trauma Score: 12 ED Course: 18:58 Patient arrived in ED. rg4 19:34 Mike Bell PA is PHCP. cp 19:34 Zen Kowalski MD is Attending Physician. cp 19:37 Triage completed. vc1 19:38 Arm band placed on right wrist. vc1 20:51 US OB Limited: fall, left lower abdomen pain In Process Unspecified. EDMS 23:53 Patient has correct armband on for positive identification. lg3 23:53 Patient maintains SpO2 saturation greater than 95% on room air. lg3 23:54 No provider procedures requiring assistance completed. Patient did not have IV access lg3 during this emergency room visit. 23:56 Thermoregulation: warm blanket given to patient. lg3 Administered Medications: No medications were administered Medication: 23:56 VIS not applicable for this client. lg3 Outcome: 22:00 Discharge ordered by . cp 23:53 Discharged to home ambulatory, with significant other, lg3 23:53 Condition: good 23:53 Patient's length of stay in the Emergency Department was greater than 2 hours. 23:54 Discharge instructions given to patient, Instructed on discharge instructions, follow lg3 up and referral plans. Demonstrated understanding of instructions, 23:58 Patient left the ED. lg3 Signatures: Dispatcher [employer] EDMS Mike Bell PA PA cp Garcia, Rubi rg4 Shannon Newton RN RN lg3 Mercy Caballero RN RN vc1
[2023-06-02 00:20] VITALS: O2SAT 100
[2023-06-02 00:22] VITALS: BP 111/71; TEMP 98.9
== END 2023-06-01 23:58 | disposition home or self-care (01) ==
LOC: ER 18:57
DX: O26.892 Other specified pregnancy related conditions, second trimester (principal); Z3A.20 20 weeks gestation of pregnancy; Z28.310 Unvaccinated for COVID-19
CPT/HCPCS: 76815; 81001; 81025; 99284

== ENCOUNTER 2023-06-02 21:33 | Emergency (ER) | payer OTHER ==
--- OUTSIDE RECORDS SUMMARY | 2023-06-02 21:37 | XMS REPORT | Continuity of Care Document ---
:2000 Author Organization [facility] [place] t Address [address] [place] [address] Care Team Providers Name Role Phone Pawel Gayle Primary Care Physician MINH KRISHNAMURTHY Attending Clinician Unavailable MINH KRISHNAMURTHY Attending Clinician Unavailable Doctor Unassigned, [place] Attending Clinician Unavailable Chelle Renteria RN Attending Clinician Unavailable Lab, Ang - Db Attending Clinician Unavailable Mery Chairez Attending Clinician [facility] Attending Clinician Unavailable [facility] Attending Clinician Unavailable Cheyenne Meredith MD Attending Clinician [facility] Attending Clinician Unavailable Sonia Poon MD Attending Clinician SONIA POON Attending Clinician Unavailable Trimester, [facility] Res-1st Attending Clinician Unavailable DAISHA THORNE Attending Clinician Unavailable Daisha Thorne MD Attending Clinician WILIAM BRAND Attending Clinician Unavailable TATIANA DONALD Attending Clinician Unavailable TATIANA DONALD Attending Clinician Unavailable Mona Garcia DO Attending Clinician MONA GARCIA Attending Clinician Unavailable TRACE SCHMID Attending Clinician Unavailable Aster Hernandez MD Attending Clinician WALKER ASTER Attending Clinician Unavailable Tarce Valdes Attending Clinician [facility] Admitting Clinician Unavailable DAISHA THORNE Admitting Clinician Unavailable Daisha Thorne MD Admitting Clinician Payers Payer Name Policy Type Policy Number Effective Date Expiration Date Yakov babb [place] NICOLA CARRERA [id number] 2022 00:00:00 Problems Condition Condition Condition Status Onset Resolution Last Treating Co mments Source Name Details Category Date Date Treatment Clinician Date ASB ASB Disease Active Univers (asymptoma (asymptoma 04-04 it y of tic tic 00:00: [place] bacteriuri bacteriuri 00 Me dical a) a) Branch High-risk High-risk Disease Active Uni vers 04-04 ity of in first in first 00:00: [place] trimester trimester 00 [facility] Branch Rubella Rubella Disease Active Univers non-immune non-immune 04-04 it y of status, status, 00:00: [place] antepartum antepartum 00 Me dical Branch Screening Screening Disease Active Uni vers examinatio examinatio 6-14 it [place] of n for STD n [place] STD [place] 00 [facility] transmitte transmitte Br anch d disease) [...] ALLERGIE Class ity of S [facility] [place] [facility] Social History Social Habit Start Date Stop Date Quantity Comments Source ASSERTION 2023-01-17 University of 00:00:00 [facility] [place] [facility] Gender identity Universit y of [facility] [place] [facility] Sexual orientation Univer sity of [place] [facility] History SDOH University o f Alcohol Frequency [place] [facility] History SDOH University o f Alcohol Std Drinks [place] [facility] History SDSC University o f Alcohol Binge [place] [facility] Alcohol intake 2023-05-02 2023-05-02 .43 /d University of 00:00:00 00:00:00 [facility] [place] [facility] Exposure to 2022-06-19 2022-06-29 Not sure [facility] SARS-CoV-2 (event) 00:00:00 14:25:00 [facility] [place] [facility] Tobacco use and 2022-06-29 2022-06-29 Smokeless Universit y of exposure 00:00:00 00:00:00 tobacco non-user [facility] History of Social 2022-01-09 2022-01-09 Univers ity of function 00:00:00 00:00:00 [facility] [place] [facility] Alcohol Comment 2022-01-09 2022-01-09 socially Universit y of 00:00:00 00:00:00 [facility] [place] [facility] Sex Assigned At [birth year] Universit y of 00:00:00 00:00:00 [facility] [place] [facility] Smoking Status Start Date Stop Date Source Never smoked tobacco [facility] Medications Ordered Filled Start Stop Current Ordering Indication Dosage Frequency Signature Comments Components Source Medication Medication Date Date Medication? Clinician (SIG) Name Name ampicillin 2022-07 Yes 250mg Take 1 Univ ers 250 mg 0-25 capsule by ity of capsule 00:00: mouth [place] 00 every 6 Medical (six) Branch hours. [...] Branch hours for 7 days. ampicillin Yes [id number] 500mg Take 1 Univers 500 mg 9-07 capsule by ity of capsule 00:00: mouth [place] 00 every 6 Medical (six) Branch hours. ampicillin Yes [id number] 500mg Take 1 Univers 500 mg 9-07 capsule by ity of capsule 00:00: mouth [place] 00 every 6 Medical (six) Branch hours. metroNIDAZO 2023-0 Yes [id number] 500mg Take 1 Univers LE (FLAGYL) 9-07 tablet by ity of 500 mg 00:00: mouth [place] tablet 00 every 12 Medical (twelve) Branch hours. ampicillin 2023-0 Yes [id number] 500mg Take 1 Univers 500 mg 9-07 capsule by ity of capsule 00:00: mouth [place] 00 every 6 Medical (six) Branch hours. metroNIDAZO 2023-0 Yes [id number] 500mg Take 1 Univers LE (FLAGYL) 9-07 tablet by ity of 500 mg 00:00: mouth [place] tablet 00 every 12 Medical (twelve) Branch hours. ampicillin 2023-0 Yes [id number] 500mg Take 1 Univers 500 mg 9-07 capsule by ity of capsule 00:00: mouth [place] 00 every 6 Medical (six) Branch hours. metroNIDAZO 2023-0 Yes [id number] 500mg Take 1 Univers LE (FLAGYL) 9-07 tablet by ity of 500 mg 00:00: mouth [place] tablet 00 every 12 Medical (twelve) Branch hours. ampicillin 2023-0 Yes [id number] 500mg Take 1 Univers 500 mg 9-07 capsule by ity of capsule 00:00: mouth [place] 00 every 6 Medical (six) Branch hours. metroNIDAZO 2023-0 Yes [id number] 500mg Take 1 Univers LE (FLAGYL) 9-07 tablet by ity of 500 mg 00:00: mouth [place] tablet 00 every 12 Medical (twelve) Branch hours. ampicillin 2023-0 Yes [id number] 500mg Take 1 Univers 500 mg 9-07 capsule by ity of capsule 00:00: mouth [place] 00 every 6 Medical (six) Branch hours. metroNIDAZO 2023-0 Yes [id number] 500mg Take 1 Univers LE (FLAGYL) 9-07 tablet by ity of 500 mg 00:00: mouth [place] tablet 00 every 12 Medical (twelve) Branch hours. ampicillin 2023-0 Yes [id number] 500mg Take 1 Univers 500 mg 9-07 capsule by ity of capsule 00:00: mouth [place] 00 every 6 Medical (six) Branch hours. metroNIDAZO 2023-0 Yes [id number] 500mg Take 1 Univers LE (FLAGYL) 9-07 tablet by ity of 500 mg 00:00: mouth [place] tablet 00 every 12 Medical (twelve) Branch hours. ampicillin 2023-0 Yes [id number] 500mg Take 1 Univers 500 mg 9-07 capsule by ity of capsule 00:00: mouth [place] 00 every 6 Medical (six) Branch hours. metroNIDAZO 2023-0 Yes [id number] 500mg Take 1 Univers LE (FLAGYL) 9-07 tablet by ity of 500 mg 00:00: mouth [place] tablet 00 every 12 Medical (twelve) Branch hours. ampicillin 2023-0 Yes [id number] 500mg Take 1 Univers 500 mg 9-07 capsule by ity of capsule 00:00: mouth [place] 00 every 6 Medical (six) Branch hours. metroNIDAZO 2023-0 Yes [id number] 500mg Take 1 Univers LE (FLAGYL) 9-07 tablet by ity of 500 mg 00:00: mouth [place] tablet 00 every 12 Medical (twelve) Branch hours. ampicillin 2023-0 Yes [id number] 500mg Take 1 Univers 500 mg 9-07 capsule by ity of capsule 00:00: mouth [place] 00 every 6 Medical (six) Branch hours. metroNIDAZO 2023-0 Yes [id number] 500mg Take 1 Univers LE (FLAGYL) 9-07 tablet by ity of 500 mg 00:00: mouth [place] tablet 00 every 12 Medical (twelve) Branch hours. ampicillin 2023-0 Yes [id number] 500mg Take 1 Univers 500 mg 9-07 capsule by ity of capsule 00:00: mouth [place] 00 every 6 Medical (six) Branch hours. metroNIDAZO 2023-0 Yes [id number] 500mg Take 1 Univers LE (FLAGYL) 9-07 tablet by ity of 500 mg 00:00: mouth [place] tablet 00 every 12 Medical (twelve) Branch hours. metroNIDAZO 2023-0 Yes [id number] 500mg Take 1 Univers LE (FLAGYL) 9-07 tablet by ity of 500 mg 00:00: mouth [place] tablet 00 every 12 Medical (twelve) Branch hours. metroNIDAZO 2023-0 Yes [id number] 500mg Take 1 Univers LE (FLAGYL) 9-07 tablet by ity of 500 mg 00:00: mouth [place] tablet 00 every 12 Medical (twelve) Branch hours. metroNIDAZO 2023-0 Yes [id number] 500mg Take 1 Univers LE (FLAGYL) 9-07 tablet by ity of 500 mg 00:00: mouth [place] tablet 00 every 12 Medical (twelve) Branch hours. metroNIDAZO 2023-0 Yes [id number] 500mg Take 1 Univers LE (FLAGYL) 9-07 tablet by ity of 500 mg 00:00: mouth [place] tablet 00 every 12 Medical (twelve) Branch hours. ampicillin 2022-0 2022- No [id number] 500mg Take 1 Univers 500 mg 9- 10-19 capsule by ity of capsule 00:00: 00:00 mouth [place] 00 :00 every 6 Medical (six) Branch hours. ampicillin 202-0 2022- No [id number] 500mg Take 1 Univers 500 mg 9- 10-19 capsule by ity of capsule 00:00: 00:00 mouth [place] 00 :00 every 6 Medical (six) Branch hours. metroNIDAZO 2022-0 2022- Yes [id number] 500mg Take 1 Univers LE (FLAGYL) 8-06 05-17 tablet by it y of 500 mg 00:00: 04:59 mouth in [place] tablet 00 :00 the Medical morning Branch and 1 tablet in the evening. Do all this for 5 days. metroNIDAZO 2022-0 2022- No [id number] 500mg Take 1 Univers LE (FLAGYL) 8-06 05-17 tablet by it y of 500 mg 00:00: 04:59 mouth in [place] tablet 00 :00 the Medical morning Branch and 1 tablet in the evening. Do all this for 5 days. ondansetron 2022-0 Yes [id number] 4mg Take 1 Univers (ZOFRAN) 4 8-10 tablet by ity of mg tablet 00:00: mouth [place] 00 every 8 Medical (eight) Branch hours as needed for Nausea and Vomiting (N/V). ondansetron 3-0 Yes [id number] 4mg Take 1 Univers (ZOFRAN) 4 8-10 tablet by ity of mg tablet 00:00: mouth [place] 00 every 8 Medical (eight) Branch hours as needed for Nausea and Vomiting (N/V). ondansetron 2023-0 Yes [id number] 4mg Take 1 Univers (ZOFRAN) 4 8-10 tablet by ity of mg tablet 00:00: mouth [place] 00 every 8 Medical (eight) Branch hours as needed for Nausea and Vomiting (N/V). ondansetron 2023-0 Yes [id number] 4mg Take 1 Univers (ZOFRAN) 4 8-10 tablet by ity of mg tablet 00:00: mouth [place] 00 every 8 Medical (eight) Branch hours as needed for Nausea and Vomiting (N/V). ondansetron 2023-0 Yes [id number] 4mg Take 1 Univers (ZOFRAN) 4 8-10 tablet by ity of mg tablet 00:00: mouth [place] 00 every 8 Medical (eight) Branch hours as needed for Nausea and Vomiting (N/V). ondansetron 2023-0 Yes [id number] 4mg Take 1 Univers (ZOFRAN) 4 8-10 tablet by ity of mg tablet 00:00: mouth [place] 00 every 8 Medical (eight) Branch hours as needed for Nausea and Vomiting (N/V). ondansetron 2023-0 Yes [id number] 4mg Take 1 Univers (ZOFRAN) 4 8-10 tablet by ity of mg tablet 00:00: mouth [place] 00 every 8 Medical (eight) Branch hours as needed for Nausea and Vomiting (N/V). ondansetron 2023-0 Yes [id number] 4mg Take 1 Univers (ZOFRAN) 4 8-10 tablet by ity of mg tablet 00:00: mouth [place] 00 every 8 Medical (eight) Branch hours as needed for Nausea and Vomiting (N/V). ondansetron 2023-0 Yes [id number] 4mg Take 1 Univers (ZOFRAN) 4 8-10 tablet by ity of mg tablet 00:00: mouth [place] 00 every 8 Medical (eight) Branch hours as needed for Nausea and Vomiting (N/V). ondansetron 2023-0 Yes [id number] 4mg Take 1 Univers (ZOFRAN) 4 8-10 tablet by ity of mg tablet 00:00: mouth [place] 00 every 8 Medical (eight) Branch hours as needed for Nausea and Vomiting (N/V). ondansetron 2023-0 Yes [id number] 4mg Take 1 Univers (ZOFRAN) 4 8-10 tablet by ity of mg tablet 00:00: mouth [place] 00 every 8 Medical (eight) Branch hours as needed for Nausea and Vomiting (N/V). ondansetron 2023-0 Yes [id number] 4mg Take 1 Univers (ZOFRAN) 4 8-10 tablet by ity of mg tablet 00:00: mouth [place] 00 every 8 Medical (eight) Branch hours as needed for Nausea and Vomiting (N/V). ondansetron 3-0 Yes [id number] 4mg Take 1 Univers (ZOFRAN) 4 8-10 tablet by ity of mg tablet 00:00: mouth [place] 00 every 8 Medical (eight) Branch hours as needed for Nausea and Vomiting (N/V). ondansetron 3-0 Yes [id number] 4mg Take 1 Univers (ZOFRAN) 4 8-10 tablet by ity of mg tablet 00:00: mouth [place] 00 every 8 Medical (eight) Branch hours as needed for Nausea and Vomiting (N/V). ondansetron 3-0 Yes [id number] 4mg Take 1 Univers (ZOFRAN) 4 8-10 tablet by ity of mg tablet 00:00: mouth [place] 00 every 8 Medical (eight) Branch hours as needed for Nausea and Vomiting (N/V). ondansetron 3-0 Yes [id number] 4mg Take 1 Univers (ZOFRAN) 4 8-10 tablet by ity of mg tablet 00:00: mouth [place] 00 every 8 Medical (eight) Branch hours as needed for Nausea and Vomiting (N/V). ondansetron 3-0 Yes [id number] 4mg Take 1 Univers (ZOFRAN) 4 8-10 tablet by ity of mg tablet 00:00: mouth [place] 00 every 8 Medical (eight) Branch hours as needed for Nausea and Vomiting (N/V). ondansetron 2023-0 Yes [id number] 4mg Take 1 Univers (ZOFRAN) 4 8-10 tablet by ity of mg tablet 00:00: mouth [place] 00 every 8 Medical (eight) Branch hours as needed for Nausea and Vomiting (N/V). ondansetron 2023-0 Yes [id number] 4mg Take 1 Univers (ZOFRAN) 4 8-10 tablet by ity of mg tablet 00:00: mouth [place] 00 every 8 Medical (eight) Branch hours as needed for Nausea and Vomiting (N/V). ondansetron 2023-0 Yes [id number] 4mg Take 1 Univers (ZOFRAN) 4 8-10 tablet by ity of mg tablet 00:00: mouth 00 every 8 Medical (eight) Branch hours as needed for Nausea and Vomiting (N/V). ondansetron Yes [id number] 4mg Take 1 Univers (ZOFRAN) 4 8-10 [...] Branch 02/13/23 at 1530, Routine 2022- No [id number] 1{capsu Take 1 Univers 26-iron 02-13 le} capsule by ity o f ps-folic-dh 00:00: 04:59 mouth [place] a 29 mg 00 :00 the Medical iron- 1 morning Branch mg-200 mg for 30 per capsule days. 2022- No [id number] 1{capsu Take 1 Univers 26-iron 02-13 le} capsule by ity o f ps-folic-dh 00:00: 04:59 mouth [place] a 29 mg 00 :00 the Medical iron- 1 morning Branch mg-200 mg for 30 per capsule days. 2022- No [id number] 1{capsu Take 1 Univers 26-iron 7-16 03- le} capsule by ity o f ps-folic-dh 00:00: 04:59 mouth [place] a 29 mg 00 :00 the Medical iron- 1 morning Branch mg-200 mg for 30 per capsule days. 2022- No [id number] 1{capsu Take 1 Univers 26-iron 7-16 03- le} capsule by ity o f ps-folic-dh 00:00: 04:59 mouth [place] a 29 mg 00 :00 the Medical iron- 1 morning Branch mg-200 mg for 30 per capsule days. 2022- No [id number] 1{capsu Take 1 Univers 26-iron 7-16 03- le} capsule by ity o f ps-folic-dh 00:00: 04:59 mouth [place] a 29 mg 00 :00 the Medical iron- 1 morning Branch mg-200 mg for 30 per capsule days. cefdinir 2022- No [id number] 300mg Take 1 U nivers 300 mg 02-13 capsule by ity of capsule 00:00: 04:59 mouth [place] 00 :00 every 12 Medical (twelve) Branch hours for 7 days. cefdinir 2022- No [id number] 300mg Take 1 U nivers 300 mg 02-13 capsule by ity of capsule 00:00: 04:59 mouth [place] 00 :00 every 12 Medical (twelve) Branch hours for 7 days. norgestimat 2021-07 Yes [id number] 1{tbl} Take 1 Univers e-ethinyl 2-02 tablet by ity o f estradioL 00:00: [place] 0.25-35 00 the Medical mg-mcg per morning. Branc h tablet norgestimat 2021-07 Yes [id number] 1{tbl} Take 1 Univers e-ethinyl 2-02 tablet by ity o f estradioL 00:00: mouth [place] 0.25-35 00 the Medical mg-mcg per morning. Branc h tablet norgestimat 2021-07 Yes [id number] 1{tbl} Take 1 Univers e-ethinyl 2-02 tablet by ity o f estradioL 00:00: mouth [place] 0.25-35 00 the Medical mg-mcg per morning. Branc h tablet norgestimat 2021-07 Yes [id number] 1{tbl} Take 1 Univers e-ethinyl 2-02 tablet by ity o f estradioL 00:00: mouth [place] 0.25-35 00 the Medical mg-mcg per morning. Branc h tablet norgestimat 2021-07 Yes [id number] 1{tbl} Take 1 Univers e-ethinyl 2-02 tablet by ity o f estradioL 00:00: mouth [place] 0.25-35 00 the Medical mg-mcg per morning. Branc h tablet norgestimat 2021-07 Yes [id number] 1{tbl} Take 1 Univers e-ethinyl 2-02 tablet by ity o f estradioL 00:00: mouth [place] 0.25-35 00 the Medical mg-mcg per morning. Branc h tablet norgestimat 2021-07 Yes [id number] 1{tbl} Take 1 Univers e-ethinyl 2-02 tablet by ity o f estradioL 00:00: mouth [place] 0.25-35 00 the Medical mg-mcg per morning. Branc h tablet norgestimat 2021-07 Yes [id number] 1{tbl} Take 1 Univers e-ethinyl 2-02 tablet by ity o f estradioL 00:00: mouth [place] 0.25-35 00 the Medical mg-mcg per morning. Branc h tablet norgestimat 2021-07 Yes [id number] 1{tbl} Take 1 Univers e-ethinyl 2-02 tablet by ity o f estradioL 00:00: mouth [place] 0.25-35 00 the Medical mg-mcg per morning. Branc h tablet norgestimat 2021-07 Yes [id number] 1{tbl} Take 1 Univers e-ethinyl 2-02 tablet by ity o f estradioL 00:00: mouth [place] 0.25-35 00 the Medical mg-mcg per morning. Branc h tablet norgestimat 2021-07 Yes [id number] 1{tbl} Take 1 Univers e-ethinyl 2-02 tablet by ity o f estradioL 00:00: mouth [place] 0.25-35 00 the Medical mg-mcg per morning. Branc h tablet norgestimat 2021-07 Yes [id number] 1{tbl} Take 1 Univers e-ethinyl 2-02 tablet by ity o f estradioL 00:00: mouth [place] 0.25-35 00 the Medical mg-mcg per morning. Branc h tablet norgestimat 2021-07 Yes [id number] 1{tbl} Take 1 Univers e-ethinyl 2-02 tablet by ity o f estradioL 00:00: mouth [place] 0.25-35 00 the Medical mg-mcg per morning. Branc h tablet norgestimat 2021-07 Yes [id number] 1{tbl} Take 1 Univers e-ethinyl 2-02 tablet by ity o f estradioL 00:00: mouth [place] 0.25-35 00 the Medical mg-mcg per morning. Branc h tablet norgestimat 2021-07 Yes [id number] 1{tbl} Take 1 Univers e-ethinyl 2-02 tablet by ity o f estradioL 00:00: mouth [place] 0.25-35 00 the Medical mg-mcg per morning. Branc h tablet norgestimat 2021-07 Yes [id number] 1{tbl} Take 1 Univers e-ethinyl 2-02 tablet by ity o f estradioL 00:00: mouth [place] 0.25-35 00 the Medical mg-mcg per morning. Branc h tablet norgestimat 2021-07 Yes [id number] 1{tbl} Take 1 Univers e-ethinyl 2-02 tablet by ity o f estradioL 00:00: mouth [place] 0.25-35 00 the Medical mg-mcg per morning. Branc h tablet norgestimat 2021-07- No [id number] 1{tbl} Take 1 Univers e-ethinyl 2-02 08-10 [...] 05/18/22 at 1030, Routine ondansetron 2021-07 Yes [id number] 4mg Take 1 Univers 4 mg 0-21 tablet by ity of disintegrat 00:00: mouth [place] ing tablet 00 every 8 Medica l (eight) Branch hours as needed for Nausea and Vomiting (N/V). ondansetron 2021-07 Yes [id number] 4mg Take 1 Univers 4 mg 0-21 tablet by ity of disintegrat 00:00: mouth [place] ing tablet 00 every 8 Medica l (eight) Branch hours as needed for Nausea and Vomiting (N/V). ondansetron 2021-07 Yes [id number] 4mg Take 1 Univers 4 mg 0-21 tablet by ity of disintegrat 00:00: mouth [place] ing tablet 00 every 8 Medica l (eight) Branch hours as needed for Nausea and Vomiting (N/V). ondansetron 2021-07 Yes [id number] 4mg Take 1 Univers 4 mg 0-21 tablet by ity of disintegrat 00:00: mouth [place] ing tablet 00 every 8 Medica l (eight) Branch hours as needed for Nausea and Vomiting (N/V). ondansetron 2021-07 Yes [id number] 4mg Take 1 Univers 4 mg 0-21 tablet by ity of disintegrat 00:00: mouth [place] ing tablet 00 every 8 Medica l (eight) Branch hours as needed for Nausea and Vomiting (N/V). ondansetron 2021-07 Yes [id number] 4mg Take 1 Univers 4 mg 0-21 tablet by ity of disintegrat 00:00: mouth [place] ing tablet 00 every 8 Medica l (eight) Branch hours as needed for Nausea and Vomiting (N/V). ondansetron 2021-07 Yes [id number] 4mg Take 1 Univers 4 mg 0-21 tablet by ity of disintegrat 00:00: mouth [place] ing tablet 00 every 8 Medica l (eight) Branch hours as needed for Nausea and Vomiting (N/V). ondansetron 2021-07 Yes [id number] 4mg Take 1 Univers 4 mg 0-21 tablet by ity of disintegrat 00:00: mouth [place] ing tablet 00 every 8 Medica l (eight) Branch hours as needed for Nausea and Vomiting (N/V). ondansetron 2021-07 Yes [id number] 4mg Take 1 Univers 4 mg 0-21 tablet by ity of disintegrat 00:00: mouth [place] ing tablet 00 every 8 Medica l (eight) Branch hours as needed for Nausea and Vomiting (N/V). ondansetron 2021-07 Yes [id number] 4mg Take 1 Univers 4 mg 0-21 tablet by ity of disintegrat 00:00: mouth [place] ing tablet 00 every 8 Medica l (eight) Branch hours as needed for Nausea and Vomiting (N/V). ondansetron 2021-07 Yes [id number] 4mg Take 1 Univers 4 mg 0-21 tablet by ity of disintegrat 00:00: mouth [place] ing tablet 00 every 8 Medica l (eight) Branch hours as needed for Nausea and Vomiting (N/V). ondansetron 2021-07 Yes [id number] 4mg Take 1 Univers 4 mg 0-21 tablet by ity of disintegrat 00:00: mouth [place] ing tablet 00 every 8 Medica l (eight) Branch hours as needed for Nausea and Vomiting (N/V). ondansetron 2021-07 Yes [id number] 4mg Take 1 Univers 4 mg 0-21 tablet by ity of disintegrat 00:00: mouth [place] ing tablet 00 every 8 Medica l (eight) Branch hours as needed for Nausea and Vomiting (N/V). ondansetron 2021-07 Yes [id number] 4mg Take 1 Univers 4 mg 0-21 tablet by ity of disintegrat 00:00: mouth [place] ing tablet 00 every 8 Medica l (eight) Branch hours as needed for Nausea and Vomiting (N/V). ondansetron 2021-07 Yes [id number] 4mg Take 1 Univers 4 mg 0-21 tablet by ity of disintegrat 00:00: mouth [place] ing tablet 00 every 8 Medica l (eight) Branch hours as needed for Nausea and Vomiting (N/V). ondansetron 2021-07 Yes [id number] 4mg Take 1 Univers 4 mg 0-21 tablet by ity of disintegrat 00:00: mouth [place] ing tablet 00 every 8 Medica l (eight) Branch hours as needed for Nausea and Vomiting (N/V). ondansetron 2021-07 Yes [id number] 4mg Take 1 Univers 4 mg 0-21 tablet by ity of disintegrat 00:00: mouth [place] ing tablet 00 every 8 Medica l (eight) Branch hours as needed for Nausea and Vomiting (N/V). ondansetron 2021-07 Yes [id number] 4mg Take 1 Univers 4 mg 0-21 tablet by ity of disintegrat 00:00: mouth [place] ing tablet 00 every 8 Medica l (eight) Branch hours as needed for Nausea and Vomiting (N/V). ondansetron 2021-07- No [id number] 4mg Take 1 Univers 4 mg 0-21 08-10 tablet by ity of disintegrat 00:00: 00:00 [place] 00 :00 every 8 Medica l (eight) Branch hours as needed for Nausea and Vomiting (N/V). norgestimat Yes [id number] 1{tbl} Take 1 Univers e-ethinyl 6-16 tablet by ity o f estradioL 00:00: mouth [place] 0.25-35 00 daily. Medical mg-mcg per Branch tablet norgestimat Yes [id number] 1{tbl} Take 1 Univers e-ethinyl 6-16 tablet by ity o f estradioL 00:00: mouth [place] 0.25-35 00 daily. Medical mg-mcg per Branch tablet norgestimat 2021- No [id number] 1{tbl} Take 1 Univers e-ethinyl 6-16 12-02 tablet by ity of estradioL 00:00: 00:00 mouth [place] 0.25-35 00 :00 daily. Medical mg-mcg per Branch tablet Immunizations Ordered Filled Date Status Comments Source Immunization Name Immunization Name HPV9 2018-10-20 Completed [facility] 00:00:00 [facility] [place] [facility] HPV9 2018-10-20 Completed [facility] 00:00:00 [facility] [place] [facility] HPV9 2018-10-20 Completed [facility] 00:00:00 [facility] [place] [facility] HPV9 2018-10-20 Completed [facility] 00:00:00 [facility] [place] [facility] HPV9 2018-10-20 Completed [facility] 00:00:00 [facility] [place] [facility] HPV9 2018-10-20 Completed University of 00:00:00 [place] [facility] HPV9 2018-10-20 Completed [facility] 00:00:00 [place] [facility] HPV9 2018-10-20 Completed [facility] 00:00:00 [place] [facility] HPV9 2018-10-20 Completed [facility] 00:00:00 [place] [facility] HPV9 2018-10-20 Completed [facility] 00:00:00 [place] [facility] HPV9 2018-10-20 Completed [facility] 00:00:00 [place] [facility] HPV9 2018-10-20 Completed [facility] 00:00:00 [place] [facility] HPV9 2018-10-20 Completed [facility] 00:00:00 [place] [facility] HPV9 2018-10-20 Completed [facility] 00:00:00 [place] [facility] HPV9 2018-10-20 Completed [facility] 00:00:00 [place] [facility] HPV9 2018-10-20 Completed [facility] 00:00:00 [place] [facility] HPV9 2018-10-20 Completed [facility] 00:00:00 [place] [facility] HPV9 2018-10-20 Completed [facility] 00:00:00 [place] [facility] HPV9 2018-10-20 Completed [facility] 00:00:00 [place] [facility] HPV9 2018-10-20 Completed [facility] 00:00:00 [place] [facility] HPV9 2018-10-20 Completed [facility] 00:00:00 [place] [facility] HPV9 2018-10-20 Completed [facility] 00:00:00 [place] [facility] HPV9 2018-10-20 Completed [facility] 00:00:00 [place] [facility] HPV9 2018-10-20 Completed [facility] 00:00:00 [place] [facility] HPV9 2018-10-20 Completed [facility] 00:00:00 [place] [facility] HPV9 2018-10-20 Completed [facility] 00:00:00 [place] [facility] HPV9 2018-10-20 Completed University of 00:00:00 [facility] HPV9 2018-10-20 Completed [facility] of 00:00:00 [facility] HPV9 2018-10-20 Completed University [facility] 00:00:00 [facility] HPV9 2018-10-20 Completed University [facility] 00:00:00 [facility] HPV9 2018-10-20 Completed University of 00:00:00 [facility] HPV9 2017-04-10 Completed University of 00:00:00 [facility] HPV9 2017-04-10 Completed University of 00:00:00 [facility] HPV9 2017-04-10 Completed [facility] 00:00:00 [facility] HPV9 2017-04-10 Completed University [facility] 00:00:00 [facility] HPV9 2017-04-10 Completed University [facility] 00:00:00 [facility] HPV9 2017-04-10 Completed University of 00:00:00 [facility] HPV9 2017-04-10 Completed University [facility] 00:00:00 [facility] HPV9 2017-04-10 Completed University [facility] 00:00:00 [facility] HPV9 2017-04-10 Completed University of 00:00:00 [facility] HPV9 2017-04-10 Completed University of 00:00:00 [facility] HPV9 2017-04-10 Completed University [facility] 00:00:00 [facility] HPV9 2017-04-10 Completed University [facility] 00:00:00 [facility] HPV9 2017-04-10 Completed University of 00:00:00 [facility] HPV9 2017-04-10 Completed University of [...] Branch HPV9 2017-04-10 Completed University of 00:00:00 [facility] HPV9 2017-04-10 Completed University [facility] 00:00:00 [facility] HPV9 2017-04-10 Completed University [facility] 00:00:00 [facility] HPV9 2017-04-10 Completed University [facility] 00:00:00 [facility] HPV9 2017-04-10 Completed University of 00:00:00 [facility] HPV9 2016-07-16 Completed University of 00:00:00 [facility] HPV9 2016-07-16 Completed University of 00:00:00 [facility] HPV9 2016-07-16 Completed University of 00:00:00 [facility] HPV9 2016-07-16 Completed University of 00:00:00 [facility] HPV9 2016-07-16 Completed University of 00:00:00 [facility] HPV9 2016-07-16 Completed University of 00:00:00 [facility] HPV9 2016-07-16 Completed University of 00:00:00 [facility] HPV9 2016-07-16 Completed University of 00:00:00 [facility] HPV9 2016-07-16 Completed University of 00:00:00 [facility] HPV9 2016-07-16 Completed University of 00:00:00 [facility] HPV9 2016-07-16 Completed University of 00:00:00 [facility] HPV9 2016-07-16 Completed University of 00:00:00 [facility] HPV9 2016-07-16 Completed University of 00:00:00 [facility] HPV9 2016-07-16 Completed University of 00:00:00 [facility] HPV9 2016-07-16 Completed University of 00:00:00 [facility] HPV9 2016-07-16 Completed University [facility] 00:00:00 [facility] HPV9 2016-07-16 Completed University of 00:00:00 [facility] HPV9 2016-07-16 Completed University of 00:00:00 [facility] HPV9 2016-07-16 Completed University of 00:00:00 [facility] HPV9 2016-07-16 Completed University of 00:00:00 [facility] HPV9 2016-07-16 Completed University of 00:00:00 [facility] HPV9 2016-07-16 Completed University of 00:00:00 [facility] HPV9 2016-07-16 Completed University of 00:00:00 [facility] HPV9 2016-07-16 Completed University of 00:00:00 [facility] HPV9 2016-07-16 Completed University of 00:00:00 [facility] HPV9 2016-07-16 Completed University of 00:00:00 [facility] HPV9 2016-07-16 Completed University of 00:00:00 [facility] HPV9 2016-07-16 Completed University of 00:00:00 [facility] HPV9 2016-07-16 Completed University of 00:00:00 [facility] Branch HPV9 2016-07-16 Completed University of 00:00:00 [facility] HPV9 2016-07-16 Completed University of 00:00:00 [facility] HPV9 Unknown Completed [facility] HPV9 Unknown Completed [facility] HPV9 Unknown Completed [facility] HPV9 Unknown Completed [facility] HPV9 Unknown Completed [facility] HPV9 Unknown Completed [facility] HPV9 Unknown Completed [facility] HPV9 Unknown Completed [facility] HPV9 Unknown Completed [facility] HPV9 Unknown Completed [facility] HPV9 Unknown Completed [facility] HPV9 Unknown Completed [facility] HPV9 Unknown Completed [facility] HPV9 Unknown Completed [facility] HPV9 Unknown Completed [facility] HPV9 Unknown Completed [facility] HPV9 Unknown Completed [facility] HPV9 Unknown Completed [facility] HPV9 Unknown Completed [facility] HPV9 Unknown Completed [facility] HPV9 Unknown Completed [facility] HPV9 Unknown Completed [facility] HPV9 Unknown Completed [facility] HPV9 Unknown Completed [facility] HPV9 Unknown Completed [facility] HPV9 Unknown Completed [facility] HPV9 Unknown Completed [facility] Vital Signs Vital Name Observation Time Observation Value Comments Source Systolic blood 2023-05-02 16:58:00 118 mm[Hg] Univer sity of pressure [facility] Diastolic blood 2023-05-02 16:58:00 74 mm[Hg] Unive rsity of pressure [facility] Heart rate 2023-05-02 16:58:00 106 /min [facility] Body temperature 2023-05-02 16:58:00 36.61 [facility] 2023-05-02 16:58:00 16 /min [facility] Body height 2023-05-02 16:58:00 160 cm [facility] Body weight 2023-05-02 16:58:00 62.007 kg [facility] BMI 2023-05-02 16:58:00 24.22 kg/m2 [facility] Systolic blood 2023-04-04 18:17:00 113 mm[Hg] Univer sity of pressure [facility] Diastolic blood 2023-04-04 18:17:00 70 mm[Hg] Unive rsity of pressure [facility] Heart rate 2023-04-04 18:17:00 70 /min [facility] Body temperature 2023-04-04 18:17:00 36.72 Paige Univ ers[facility] Respiratory rate 2023-04-04 18:17:00 16 /min Univ ersity [facility] Body height 2023-04-04 18:17:00 160 cm [facility] Body weight 2023-04-04 18:17:00 58.333 kg [facility] BMI 2023-04-04 18:17:00 22.78 kg/m2 [facility] Systolic blood 2023-03-07 20:27:00 110 mm[Hg] Univer sity of pressure [facility] Diastolic blood 2023-03-07 20:27:00 73 mm[Hg] Unive rsity of pressure [facility] Heart rate 2023-03-07 20:27:00 64 /min [facility] Respiratory rate 2023-03-07 20:27:00 18 /min Univ ersity of [facility] Body height 2023-03-07 20:27:00 160 cm [facility] Body weight 2023-03-07 20:27:00 59.421 kg [facility] BMI 2023-03-07 20:27:00 23.21 kg/m2 [facility] Systolic blood 2023-02-14 01:00:00 120 mm[Hg] Univer sity of pressure [facility] Diastolic blood 2023-02-14 01:00:00 79 mm[Hg] Unive rsity of pressure [facility] Heart rate 2023-02-14 01:00:00 87 /min [facility] Respiratory rate 2023-02-14 01:00:00 18 /min Univ ersity of [facility] Oxygen saturation in 2023-02-14 01:00:00 99 /min University of Arterial blood by [facility] murali Pulse oximetry Branch Body temperature 2023-02-13 18:47:00 36.61 Paige Univ ersity [facility] Systolic blood 2023-02-11 15:26:00 122 mm[Hg] Univer sity of pressure [facility] Diastolic blood 2023-02-11 15:26:00 81 mm[Hg] Unive rsity of pressure [facility] Heart rate 2023-02-11 15:26:00 75 /min [facility] Body temperature 2023-02-11 15:26:00 36.06 Paige Univ ers[facility] Respiratory rate 2023-02-11 15:26:00 18 /min Univ ers[facility] Body height 2023-02-11 15:26:00 160 cm [facility] Body weight 2023-02-11 15:26:00 58.06 kg [facility] BMI 2023-02-11 15:26:00 22.67 kg/m2 [facility] Systolic blood 2023-02-08 09:30:00 113 mm[Hg] Univer sity of pressure [facility] Diastolic blood 2023-02-08 09:30:00 88 mm[Hg] Unive rsity of pressure [facility] Heart rate 2023-02-08 09:30:00 79 /min [facility] Respiratory rate 2023-02-08 09:30:00 15 /min Univ ersity [facility] Oxygen saturation in 2023-02-08 09:30:00 95 /min University of Arterial blood by [facility] Pulse oximetry Branch Body temperature 2023-02-08 07:14:00 37.17 Paige Univ ersity [facility] Body weight 2023-02-08 07:14:00 58.968 kg [facility] BMI 2023-02-08 07:14:00 23.03 kg/m2 [facility] Systolic blood 2022-06-29 20:54:00 119 mm[Hg] Univer sity of pressure [facility] Diastolic blood 2022-06-29 20:54:00 82 mm[Hg] Unive rsity of pressure [facility] Heart rate 2022-06-29 20:54:00 78 /min [facility] Body temperature 2022-06-29 20:54:00 37.06 Paige Univ ers[facility] Respiratory rate 2022-06-29 20:54:00 18 /min Univ ers[facility] Body height 2022-06-29 20:54:00 160 cm [facility] Body weight 2022-06-29 20:54:00 58.06 kg [facility] BMI 2022-06-29 20:54:00 22.67 kg/m2 [facility] Systolic blood 2022-05-18 14:17:00 106 mm[Hg] Univer sity of pressure [facility] Diastolic blood 2022-05-18 14:17:00 80 mm[Hg] Unive rsity of pressure [facility] Heart rate 2022-05-18 14:17:00 78 /min [facility] Body temperature 2022-05-18 14:17:00 36.67 Paige Univ [facility] Respiratory rate 2022-05-18 14:17:00 18 /min Univ ers[facility] Body height 2022-05-18 14:17:00 160 cm [facility] Body weight 2022-05-18 14:17:00 56.7 kg [facility] BMI 2022-05-18 14:17:00 22.14 kg/m2 [facility] Oxygen saturation in 2022-05-18 14:17:00 99 /min University of Arterial blood by [facility] Pulse oximetry Branch Systolic blood 2022-01-11 14:20:00 109 mm[Hg] Univer sity of pressure [facility] Diastolic blood 2022-01-11 14:20:00 71 mm[Hg] Unive rsity of pressure [facility] Heart rate 2022-01-11 14:20:00 76 /min [facility] Body temperature 2022-01-11 14:20:00 36.89 Paige Univ ersity of [facility] Respiratory rate 2022-01-11 14:20:00 18 /min Univ ers[facility] Body height 2022-01-11 14:20:00 162.6 cm [facility] Body weight 2022-01-11 14:20:00 61.236 kg [facility] BMI 2022-01-11 14:20:00 23.17 kg/m2 [facility] Procedures Procedure Date / Time Performing Clinician Source Performed URINE CULTURE 2023-05-02 17:05:00 Minh Krishnamurthy [facility] POCT URINALYSIS W/O 2023-05-02 00:00:00 [facility] 2023-04-05 05:01:00 [facility]/O 2023-04-04 00:00:00 [facility] US OB TRANSVAGINAL 2023-03-07 20:54:56 Minh Krishnamurthy [facility] 2023-03-07 05:01:00 Doctor Unassigned, No [facility] ULTRASOUND [facility] POCT TEST 2023-03-07 00:00:00 [facility] W/O 2023-03-07 00:00:00 [facility] ABORH CONFIRMATION (LAB 2023-02-13 23:50:00 Esdras [facility] ONLY) [facility] URINALYSIS 2023-02-13 23:29:00 Anna Brown [facility] BASIC METABOLIC PANEL 2023-02-13 21:01:00 Anna Brown [facility] (NA, K, CL, CO2, [facility] GLUCOSE, BUN, CREATININE, CA) TOTAL BETA HCG ASSAY 2023-02-13 21:01:00 Anna Brown [facility] CBC WITH DIFF 2023-02-13 21:01:00 Anna Brown [facility] HB ABO GROUPING 2023-02-13 21:01:00 [facility] o f [facility] CONSENT/REFUSAL FOR 2023-02-13 18:38:52 Doctor Unassigned, No [facility] POCT TEST 2022-06-29 00:00:00 [facility] 2022-05-18 14:24:00 Mona [facility] CONSENT/REFUSAL FOR 2022-05-18 14:12:43 Doctor Unassigned, No [facility] [place] [facility] Name [facility] Encounters Start End Encounter Admission Attending Care Care Encounter Source Date/Time Date/Time Type Type Clinicians Facility Department ID 2023-06-04 2023-06-04 Outpatient P [facility] [id number] Univers 13:00:00 13:00:00 ity of [facility] 2023-05-30 2023-05-30 Outpatient R MINH KRISHNAMURTHY [facility] [id number] Univers 13:15:00 13:15:00 MINH KRISHNAMURTHY ity of [facility] 2023-05-22 2023-05-22 Telephone [facility] 1.2.840.11 4 [id number] Univers 00:00:00 00:00:00 Minh nagy 350.1.13.10 ity [place] [id number] [address] 2023-05-06 2023-05-06 Patient Doctor [facility] 1.2.840.114 [id number] [facility] 00:00:00 00:00:00 Secure Msg Unassigned, MICHAEL 350.1.13.10 ity [place] [id number] [address] 2023-05-02 2023-05-02 Routine [facility] 1.2.840.114 [id number] Univers 11:45:00 12:06:47 yakov Minhrashid DEGROOT 350.1.13.10 ity of Visit WOMEN'S 4.2.7.2.686 [facility] [id number] [address] 2023-05-02 2023-05-02 Outpatient R MINH KRISHNAMURTHY [facility] [id number] Univers 11:45:00 12:06:47 MINH KRISHNAMURTHY ity [facility] 2023-04-15 2023-04-15 Telephone Dexter [facility] 1.2.840.114 [id number] Univers 00:00:00 00:00:00 Chelle DEGROOT 350.1.13.10 it y of PEDIATRIC 4.2.7.2.686 Te [facility] [id number] [address] 2023-04-15 2023-04-15 Patient Doctor [facility] 1.2.047.959 [id number] Univers 00:00:00 00:00:00 Secure Msg Unassigned, ZANE 350.1.13.10 ity of [place] PEDIATRIC 4.2.7.2.686 [facility] [id number] [address] 2023-04-09 2023-04-09 Telephone Zaida [facility] 1.2.840.11 4 [id number] Univers 00:00:00 00:00:00 yakov Minhrashid DEGROOT 350.1.13.10 ity of WOMEN'S 4.2.7.2.686 [facility] [id number] [address] 2023-04-09 2023-04-09 Patient Doctor [facility] 1.2.893.107 [id number] Univers 00:00:00 00:00:00 Secure Msg Unassigned ZANE 350.1.13.10 ity of [place] PEDIATRIC 4.2.7.2.686 [facility] [id number] [address] 2023-04-05 2023-04-05 Outpatient R MINH KRISHNAMURTHY [facility] [id number] Univers 11:30:00 12:02:21 MINH KRISHNAMURTHY ity [facility] 2023-04-05 2023-04-05 Coal [facility] Lab, Ang - Aristeo [facility] 1.2.840.1 14 [id number] Univers 11:30:00 12:02:21 Visit Sol Krishnamurthysol HEALTH 350.1.13 .10 ity of [place] 4.2.7.2.686 Saúl as CHRIS?BLEA [id number] [place] [address] MEDICAL OFFICE BUILDING 2023-04-05 2023-04-05 Outpatient R [facility] [id number] Univers 10:15:00 10:15:00 ity of [facility] 2023-04-05 2023-04-05 Orders Doctor CELINE 1.2.840.114 [id number] Univers 00:00:00 00:00:00 Only Unassigned, JOSÉ MIGUEL 350.1.13.10 ity of [place] HOSPITAL 4.2.7.2.686 Saúl as [id number] [place] [address] Branch 2023-04-04 2023-04-04 Outpatient R [facility]DRonaldoDUVAL [facility] [id number] Univers 13:15:00 13:36:58 BERTRAND-DUVAL, MNIH ity of [facility] 2023-04-04 2023-04-04 Routine [facility] 1.2.840.114 [id number] Univers 13:15:00 13:36:58 s Minh ZANE 350.1.13.10 ity of [place] [id number] [facility] 134 Branch 2023-04-04 2023-04-04 Case [facility] 1.2.840.114 10 [id number] Univers 00:00:00 00:00:00 Management s, Minh MICHAEL 350.1.13.10 ity of [facility] 4.2.[place].2.[place] [id number] [place] [facility] [address] BUILDING 2023-04-04 2023-04-04 Telephone [facility] 1.2.840.11 4 [id number] Univers 00:00:00 00:00:00 s Minh ZANE 350.1.13.10 [place] [id number] [address] 2023-04-02 2023-04-02 [facility], Ang - Db [facility] 1.2.840.1 14 [id number] Univers 08:30:00 08:45:00 Visit BertrandRonaldoChase [facility] 350.1.13 .10 ity of [place] 4.2.7.2.686 [place] CHRIS?BLEA [id number] [place] [address] MEDICAL OFFICE BUILDING 2023-04-02 2023-04-02 Outpatient R BERTRANDRonaldoCHASE [facility] [id number] Univers 08:30:00 08:30:00 [facility] ity of [facility] 2023-03-29 2023-03-29 Outpatient R [facility] [id number] Univers 16:00:00 16:00:00 ity of [facility] 2023-03-26 2023-03-26 Telephone [facility] 1.2.840.11 4 [id number] Univers 00:00:00 00:00:00 s, Minh ZANE 350.1.13.10 [place] [id number] [address] 2023-03-08 2023-03-08 Telephone [facility] 1.2.840.11 4 [id number] Univers 00:00:00 00:00:00 s Minhrashid DEGROOT 350.1.13.10 [place] [id number] [address] 2023-03-08 2023-03-08 Patient Doctor [facility] 1.2.236.622 [id number] Univers 00:00:00 00:00:00 Secure Msg Unassigned, ZANE 350.1.13.10 [place] [id number] [address] 2023-03-07 2023-03-07 Outpatient R BERTRANDDUVAL [facility] [id number] Univers 15:00:00 15:51:03 MINH KRISHNAMURTHY ity [facility] 2023-03-07 2023-03-07 Initial Zaida [facility] 1.2.840.114 [id number] Univers 15:00:00 15:51:03 sMinh 350.1.13.10 it[place] [id number] [facility] 134 Branch 2023-03-07 2023-03-07 Orders Doctor CELINE 1.2.840.114 [id number] Univers 00:00:00 00:00:00 Only Unassigned, JOSÉ MIGUEL 350.1.13.10 it[place] of [place] [facility] 4.2.7.2.686 Saú[place] as [id number] [facility] 009 Branch 2023-02-25 2023-02-25 Outpatient R [facility] [id number] Univers 09:45:00 09:45:00 ity [facility] 2023-02-15 2023-02-15 Outpatient R [facility] [id number] Univers 09:00:00 09:00:00 [facility] 2023-02-14 Outpatient R [facility] [id number] Univers 08:00:00 08:00:00 [facility] 2023-02-14 2023-02-14 Telephone CATHY Solares 1.2.840.114 10 [id number] Univers 00:00:00 00:00:00 Mery Y HEALTH 350.1.13.10 i ty of [place] [id number] [facility] 113 Branch 2023-02-13 2023-02-13 Emergency X ESDRAS MC [facility] ERT [id number] Univers 13:50:00 20:24:00 ESDRAS [facility] 2023-02-13 2023-02-13 Emergency Dalmedo, TRAUMA 1.2.840.114 [id number] Univers 13:50:00 20:24:00 [facility] 350.1.13.10 [place] [id number] [facility] 014 Branch 2023-02-13 2023-02-13 Emergency X [facility] ERT [id number] Univers 13:01:00 13:14:00 ity of [facility] 2023-02-12 2023-02-12 Outpatient P [facility] [id number] Univers 08:45:00 08:45:00 ity of [facility] 2023-02-12 2023-02-12 Telephone Shizzlr, UNIVERSIT 1.2.840.114 1 [id number] Univers 00:00:00 00:00:00 [facility] 350.1.13.10 i ty of CL[place] [id number] [facility] 104 Branch 2023-02-12 2023-02-12 Telephone Chaljub, UNIVERSIT 1.2.840.114 1 [id number] Univers 00:00:00 00:00:00 [facility] 350.1.13.10 i ty of CL[place] [id number] [facility] 113 Branch 2023-02-12 2023-02-12 Telephone FilterEasyjuBit[employer], UNIVERSIT 1.2.840.114 1 [id number] Univers 00:00:00 00:00:00 [facility] 350.1.13.10 i ty of CL[place] [id number] [facility] 113 Branch 2023-02-11 2023-02-11 Coal Passer [facility] UNIVERSIT 1.2.840.114 1 [id number] Univers 13:45:00 14:00:00 Visit Sonia Poon [facility] 350.1.13.10 ity of CL[place] [id number] [facility] 316 Branch 2023-02-11 2023-02-11 Outpatient R MARYLOU [facility] [id number] Univers 10:15:00 11:12:25 SONIA itjeniffer [facility] 2023-02-11 2023-02-11 Routine Trimester, [facility] UNIVERSIT 1.2.840.114 [id number] Univers 10:15:00 11:12:25 Sonia Poon Y HEALTH 350.1.13.10 ity of Visit CLINICS [place] [id number] [facility] 113 Branch 2023-02-11 2023-02-11 Patient Masoud, UNIVERSIT 1.2.840.114 [id number] Univers 00:00:00 00:00:00 Secure Msg Quinn Y HEALTH 350.1.13.10 ity of CL[place] [id number] [place] [address] Branch 2023-02-08 2023-02-08 Emergency X FADUMO, [facility] ERT [id number] Univers 02:15:00 04:47:00 [facility] 2023-02-08 2023-02-08 Emergency Fadumo, TRAUMA 1.2.515.584 [id number] Univers 02:15:00 04:47:00 [facility] 350.1.13.10 [place] [id number] [facility] 014 Branch 2023-01-24 2023-01-24 Outpatient R MINH KRISHNAMURTHY [facility] U [facility] [id number] Univers 15:00:00 15:00:00 MINH KRISHNAMURTHY [facility] 2023-01-15 2023-01-15 Outpatient R CATHIE [facility] [id number] Univers 09:45:00 09:45:00 WILIAM [facility] 2023-01-11 2023-01-11 Outpatient R MINH KRISHNAMURTHY [facility] U [facility] [id number] Univers 10:00:00 10:00:00 MINH KRISHNAMURTHY [facility] 2022-09-21 2022-09-21 Outpatient R TATIANA DONALD [facility] B [id number] Univers 13:00:00 13:00:00 TATIANA DONALD [facility] 2022-06-29 2022-06-29 Outpatient R TATIANA DONALD [facility] [facility] [id number] Univers 14:15:00 15:02:15 TATIANA DONALD itjeniffer [facility] 2022-06-29 2022-06-29 Initial Casie KYCHANELLE AGUILAR [id number] Univers 14:15:00 15:02:15 Tatiana DEGROOT [id number] i ty of Visit WOMEN'S 4.2.7.2.686 [facility] [id number] [facility] [address] 2022-05-18 2022-05-18 Emergency [facility] [id number] Univers 09:18:00 09:56:00 Mona RODRIGUEZ [id number] ity [facility] 4.2.7.2.686 [facility] [id number] [facility] [address] 2022-05-18 2022-05-18 Emergency X [facility] ERT [id number] Univers 09:18:00 09:56:00 MONA [facility] 2022-02-12 2022-02-12 Outpatient R SHARMAINE [facility] [id number] Univers 13:15:00 13:15:00 TRACE [place] o f [facility] 2022-01-11 2022-01-11 Office Aster Hernandez [facility] [id number] Univers 09:00:00 09:43:54 Visit ZAEN [id number] it y of WOMEN'S 4.2.7.2.686 [facility] [id number] [facility] [address] 2022-01-11 2022-01-11 Outpatient R ASTER HERNANDEZ [facility] [id number] Univers 09:00:00 09:43:54 ity [facility] 2022-01-11 2022-01-11 Outpatient R ASTER HERNANDEZ [facility] [id number] Univers 09:00:00 09:00:00 ity [facility] 2022-01-10 2022-01-10 Outpatient R SHARMAINE [facility] [id number] Univers 13:15:00 13:15:00 TRACE saeed [facility] 2022-01-10 2022-01-10 Outpatient R SHARMAINE [facility] [id number] Univers 13:15:00 13:15:00 TRACE saeed [facility] 2022-01-09 2022-01-09 Office Sharmaine [facility] [id number] Univers 14:00:00 14:30:32 Visit Wendydoragemini [place] [employer] [facility] [id number] ity [facility] 4.2.7.2.686 Saúl as MATERNAL [id number] [facility] ical & CHILD [address] [address] 2022-01-09 2022-01-09 Outpatient Deondre SCHMID [facility] [id number] Univers 14:00:00 14:30:32 WENDYGEMINI saeed [facility] 2022-01-09 2022-01-09 Outpatient Deondre SCHMID [facility] [id number] Univers 14:00:00 14:30:32 [facility] [place] 2022-01-09 2022-01-09 Orders Doctor CELINE [id number] Univers 00:00:00 00:00:00 Only Unassigned, JOSÉ MIGUEL 350.1.13.10 [facility] 4.2.7.2.686 Saúl as [id number] [address] 2021-11-14 2021-11-14 Outpatient ASTER LAGUNA [facility] [id number] Univers 09:30:00 09:30:00 ity of [facility] Results Test Description Test Time Test [...] code = 3257) n/a Negative - Negative [facility] URINALYSIS W/O SPECIFIC [id number] 16:58:00 Test Item Value Reference Range Interpretation [...] code = 3257) n/a Negative - Negative [facility] URINALYSIS W/O SPECIFIC [id number] 18:14:00 Test Item Value Reference Range Interpretation [...] code = 3257) n/a Negative - Negative [facility]/O SPECIFIC [id number] 18:14:00 Test Item Value Reference Range Interpretation [...] code = 3257) n/a Negative - Negative [facility] [id number] 20:44:00 Test Item Value Reference Range Interpretation [...] code = 3257) N/A Negative - Negative [facility] [id number] 20:43:00 Test Item Value Reference Range Interpretation Comments POCT PREG (test code = 1605) Positive On board controls acceptable with C Yes Line (test code = 3574) POCT PREG LOT # (test code = 3575) POCT PREG TEST DATE (test code = 3576) [facility] ([facility] Only)2023-02-13 23:59:00 Test Item Value Reference Range Interpretation Comments ABO & RH (test code = 20) O Positive [facility] HCG [id number] 22:07:06 Test Item Value Reference Range Interpretation Comments BETA HCG (test 77620.00 See_Comment [Automated m essage] code = The system [employer] [id number]) generated this result transmit charlene reference range : Non- fe male and male patien ts: <5 mIU/mL. The reference range was not used to interpret this result as normal/abnormal . SONALI (test code Gestational Age ? ? = SONALI) ?Range (mIU/mL) 1-10 ?Weeks ?[id number] Weeks ?65566-40623686-52 Weeks ?2297-89851725-23 Weeks ?3118-072369 Biotin has been reported to cause a negative bias, interpret results relative to patient's use of biotin. [facility] METABOLIC PANEL (NA, K, CL, CO2, GLUCOSE, BUN, CREATININE, CA)2023-02-13 21:29:48 Test Item Value Reference Range Interpretation Comments NA (test code = 136 mmol/L 135-145 2942968105) K (test code = 3.9 mmol/L 3.5-5.0 8895579681) CL (test code = 107 mmol/L 98-108 2746631345) CO2 TOTAL (test code = 23 mmol/L 23-31 9082990877) AGAP (test code = 6 2-16 2862704512) BUN (test code = 9 mg/dL 7-23 7436959900) GLUCOSE (test code = 80 mg/dL 70-110 4046371046) CREATININE (test code = 0.45 mg/dL 0.50-1.04 L 3142589665) CALCIUM (test code = 8.9 mg/dL 8.6-10.6 3482914895) eGFR (test code = 175.9 mL/min/1.73m2 2356148739) SONALI (test code = SONALI) Association of [...] tests). Lab Interpretation Abnormal (test code = 51089-2) [facility] WITH [id number] 21:21:23 Test Item Value Reference Range Interpretation Comments WBC (test code = 7.74 See_Comment [Automated 1290-2) message] The sy stem which generated this [...] (test code = 38.4 fL 39.0-49.9 L 47773-6) RDW-CV (test code = 12.5 % 12.0-15.5 788-0) PLT (test code = 451 See_Comment H [Automated 777-3) message] The sy stem which generated this result transmitted reference range : 166 - 358 10*3/ ?L. The reference r dannie was not used to interpret this result as normal/abnormal . MPV (test code = 8.5 fL 9.5-12.9 L 68832-9) IPF % (test code = 1.0 % 1.3-7.7 L Platelet count 4141333268) measured by fluorescence method. NRBC/100 WBC (test 0.0 See_Comment [Automat ed code = 8111524166) message] The system which generated this result transmitted reference range : 0.0 - 10.0 /100 WBCs. The refer ence range was not u sed to interpret th is result as normal/abnormal . NRBC x10^3 (test code See_Comment [Auto mated = 5757099701) message] The s ystem which generated this result transmitted reference range : 10*3/?L. The reference range was not used to interpret this result as normal/abnormal . GRAN MAT (NEUT) % 51.3 % (test code = 770-8) IMM GRAN % (test code 0.40 % = 1852160860) LYMPH % (test code = 41.7 % 736-9) MONO % (test code = 4.9 % 5905-5) EOS % (test code = 1.3 % 713-8) BASO % (test code = 0.4 % 706-2) GRAN MAT x10^3(ANC) 3.97 10*3/uL 1.88-7.09 (test code = 3467977998) IMM GRAN x10^3 (test 0.03 10*3/uL 0.00-0.06 code = 2340905278) LYMPH x10^3 (test code 3.23 10*3/uL 1.32-3.29 = 731-0) MONO x10^3 (test code 0.38 10*3/uL 0.33-0.92 = 742-7) EOS x10^3 (test code = 0.10 10*3/uL 0.03-0.39 711-2) BASO x10^3 (test code 0.03 10*3/uL 0.01-0.07 = 704-7) Lab Interpretation Abnormal (test code = 96732-1) [facility] - ONCE [id number] 21:14:00 Test Item Value Reference Range Interpretation Comments ABO & RH (test code = 20) O POSITIVE IAT (test code = 1185) Negative [facility] [id number] 20:09:00 Test Item Value Reference Range Interpretation Comments POCT PREG (test code = Negative Not r ecorded per 1605) staff On board controls Yes acceptable with C Line (test code = 3574) POCT PREG LOT # (test code = 3575) POCT PREG TEST DATE (test code = 3576) [facility] [id number] 14:24:00 Test Item Value Reference Range Interpretation Comments POCT PREG (test code = 1605) negative On board controls acceptable with present C Line (test code = 3574) POCT PREG LOT # (test code = 3575) [id number] POCT PREG TEST DATE (test 09-26-2023 code = 3576) Lab Interpretation (test code = Normal 56240-0) [facility]"
[2023-06-02 22:29] LABS: Absolute Lymphocytes (CBC) 2.4 K/uL (0.7-4.9); Hematocrit 33.8 % (36.0-45.0); Lymphocytes % 25.5 % (15.3-44.8); MCV 89.4 fL (80-100); MPV 6.8 fL (7.6-11.3); Platelets 381 thou/uL (152-406); RBC Red Blood Cell Count 3.79 M/uL (3.86-4.86)
[2023-06-02] MEDS ORDERED: MECLIZINE HCL 12.5 MG TAB ONE (22:31)
[2023-06-02] MEDS ORDERED: ACETAMINOPHEN 500 MG TAB ONE (22:31)
[2023-06-02] MEDS ORDERED: NA CHLORIDE 0.9% 1,000 ML ONE (22:32)
[2023-06-02 22:34] LABS: Specific Gravity 1.016 (1.005-1.030); Urine Bacteria None Seen /HPF (<20); Urine Bilirubin NEGATIVE (Negative); Urine Blood Negative (Negative); Urine Clarity Extremely Turbid (Clear); Urine Color Light-Yellow (Yellow); Urine Glucose NEGATIVE (Negative); Urine Mucus Slight /HPF (None Seen); Urine Protein NEGATIVE (Negative); Urine Urobilinogen Normal (Normal); Urine pH 6.5 (5.0-7.0)
[2023-06-02 22:50] LABS: Albumin 3.2 g/dL (3.4-5.0); Bilirubin Total 0.6 mg/dL (0.2-1.0); Potassium 3.3 mEq/L (3.5-5.1); Protein, Total 7.1 g/dL (6.4-8.2)
[2023-06-02 23:14] LABS: NT PRO-BNP 28 pg/mL (<125); Troponin High Sensitivity 3.6 pg/mL (<58.9)
[2023-06-03 00:01] LABS: C-Reactive Protein < 2.90 mg/L (<3.00)
--- NOTE | 2023-06-03 00:59 | EDPHYS ---
Physician Documentation [facility] Name: Marie Gann Age: 23 yrs Sex: Female : 2000 Arrival Date: 06/02/2023 Time: 21:33 Bed 13 Private MD: ED Physician Zen Kowalski HPI: 06/02 21:58 This 23 yrs old Female presents to ER via Ambulatory with complaints of Near sp4 Syncope, Irregular Pulse, 21 WEEKS . 22:17 US yesterday - EXAM DESCRIPTION: US - OB Limited - 06/01/2023 8:49 pm CLINICAL HISTORY: sp4 ABD PAIN COMPARISON: Matter Eval Tm 1 dated 04/17/2023 FINDINGS: A single breech presenting gestation is identified. Heart rate normal at 144 beats/minute. FL:3.3 Centimeters 20 week 2 day The estimated gestational age (EGA) is 20 week 2 day with an THERON of10/17/2023. The placenta is posterior. No placenta previa. The amniotic fluid index is subjectively normal The cervix is closed measuring 3.6 cm. No funneling. The maternal adnexa show no worrisome findings. IMPRESSION: 1. Single, breech gestation with an EGA of 20 week 2 day and an THERON of the 10/17/2023. 3. Posterior placenta. No previa 4. Amniotic fluid index is subjectively normal. 4. Closed cervix. Signed By: Carlos Manuel Rangel MD Signed AT: 06/01/23 5722 . 23-year-old female EGA 21 weeks 3 days -0-0-[address] Stone , presented with acute onset of dizziness near syncopal episode at home feeling unwell and headache. Patient was here yesterday for a fall and had an ultrasound done here in our that reported single breech gestation EGA 20 weeks 2 days with posterior placenta, normal amniotic fluid index, closed cervix. Patient states she would like to be evaluated for this near syncopal episode and feeling dizzy. Patient reports associated irregular pulse. Historical: - Allergies: 21:55 No Known Allergies; hb - Home Meds: 21:55 Vitamin Oral [Active]; hb - PMHx: 21:55 Ovarian cyst; seasonal allergies; hb - PSHx: 21:55 None; hb - Immunization history:: Adult Immunizations up to date. - Social history:: Smoking status: Patient denies any tobacco usage or history of. - Family history:: not pertinent. ROS: 22:17 Constitutional: Positive dizziness positive for feeling unwell positive irregular pulse sp4 positive near syncope negative fever 22:17 All other systems are negative, Exam: 22:17 Constitutional: This is a well developed, well nourished patient who is awake, alert, sp4 and in no acute distress. Head/Face: Normocephalic, atraumatic. Eyes: Pupils equal round and reactive to light, extra-ocular motions intact. Lids and lashes normal. Conjunctiva and sclera are not injected. Cornea within normal limits. Periorbital areas with no swelling, redness, or edema. ENT: Nares patent. No nasal discharge, no septal abnormalities noted. Tympanic membranes are normal and external auditory canals are clear. Oropharynx with no redness, swelling, or masses, exudates, or evidence of obstruction, uvula midline. Mucous membranes moist. Neck: Trachea midline, no thyromegaly or masses palpated, and no cervical lymphadenopathy. Supple, full range of motion without nuchal rigidity, or vertebral point tenderness. Chest/axilla: Normal chest wall appearance and motion. Nontender with no deformity. No lesions are appreciated. Cardiovascular: Regular rate and rhythm with a normal S1 and S2. No gallops, murmurs, or rubs. Normal PMI, no JVD. No pulse deficits. Respiratory: Lungs have equal breath sounds bilaterally, clear to auscultation and percussion. No rales, rhonchi or wheezes noted. No increased work of breathing, no retractions or nasal flaring. Abdomen/GI: Soft, non-tender, with normal bowel sounds. No distension or tympany. No guarding or rebound. No evidence of tenderness throughout. Back: No spinal tenderness. No costovertebral tenderness. Skin: Warm, dry with normal turgor. Normal color with no rashes, no lesions, and no evidence of cellulitis. MS/ Extremity: Pulses equal, no cyanosis. Neurovascular intact. Full, normal range of motion. Neuro: Awake and alert, GCS 15, oriented to person, place, time, and situation. Cranial nerves II-XII grossly intact. Motor strength 5/5 in all extremities. Sensory grossly intact. Psych: Awake, alert, with orientation to person, place and time. Behavior, mood, and affect are within normal limits 22:19 ECG was reviewed by the Attending Physician. EKG time 2208 there is normal sinus rhythm sp4 at the rate of [address] elevation or depression no ectopy. Muscle tremor artifact otherwise normal EKG. Vital Signs: 21:51 BP 116 / 95; Pulse 71; Resp 16; Temp 97.9; Pulse Ox 100% on R/A; Weight 61.23 kg; hb Height 5 ft. 4 in. ; Pain 0/10; 06/03 01:23 BP 111 / 76; Pulse 77; Resp 17 S; Pulse Ox 100% on R/A; lg3 06/02 21:51 Body Mass Index 23.17 (61.23 kg, 162.56 cm) hb 06/02 21:51 Pain Scale: Adult hb MDM: 06/02 21:57 Patient medically screened. sp4 06/03 00:56 Differential Diagnosis: cardiac arrhythmia, drug effect, emotional response, idiopathic sp4 syncope, , seizure, sepsis. Data reviewed: vital signs, nurses notes, old medical records, lab test result(s), EKG, radiologic studies. Consideration of Admission/Observation Escalation of care including admission/observation considered. ED course: Is basically normal except for mild hypokalemia negative flu and COVID. 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 . 06/02 21:57 Order name: CBC with Diff; Complete [facility]: [facility] 06/02 21:57 Order name: CMP; Complete Time: 00:51 4 06/02 21:57 Order name: Lipase; Complete Time: 00:51 sp4 06/02 21:57 Order name: Urinalysis w/ reflexes; Complete Time: 00:51 4 06/02 22:13 Order name: CRP; Complete Time: 00:51 4 06/02 22:13 Order name: Influenza Screen (a \T\ B); Complete Time: 00:51 4 06/02 22:13 Order name: Troponin High Sensitivity; Complete Time: 00:51 4 06/02 22:13 Order name: BNP; Complete Time: 00:51 4 06/02 22:13 Order name: COVID-19 SARS RT PCR; Complete Time: 00:51 sp4 06/02 21:57 Order name: EKG; Complete Time: 21:58 sp4 06/02 21:57 Order name: IV Saline Lock; Complete Time: 22:24 sp4 06/02 21:57 Order name: Labs collected and sent; Complete Time: 22:24 sp4 06/02 21:57 Order name: EKG - Nurse/Tech; Complete Time: 22:24 sp4 EC/05 22:19 Rate is 73 beats/min. Rhythm is regular, Normal Sinus Rhythm. QRS [place] is Normal. AL sp4 interval is normal. QRS interval is normal. QT interval is normal. No Q waves. T waves are Normal. No ST changes noted. Clinical impression: Normal ECG. Interpreted by me. Reviewed by me. Administered Medications: 22:24 Drug: NS 0.9% IV 1000 ml IV at 1 bolus Per protocol; 1000 mL bolus Route: IV; Rate: 1 lg3 bolus; Site: right antecubital; 06/03 01:24 Follow up: Response: No adverse reaction; IV Status: Completed infusion; IV Intake: lg3 1000ml 06/02 22:24 Drug: Acetaminophen PO 1000 mg PO once Route: PO; lg3 06/03 01:24 Follow up: Response: No adverse reaction lg3 06/02 22:24 Drug: Meclizine PO 25 mg PO once Route: PO; lg3 06/03 01:24 Follow up: Response: No adverse reaction; Marked relief of symptoms lg3 Disposition Summary: 06/03/23 00:59 Discharge Ordered Notes: Location: Home sp4 Problem: new sp4 Symptoms: have improved sp4 Condition: Stable sp4 Diagnosis - Syncope Near sp4 - 21 weeks gestation of sp4 - Discomfort of , idiopathic dizziness sp4 Followup: sp4 - With: Private Physician - When: 7 - 10 days - Reason: Recheck today's complaints Discharge Instructions: - Discharge Summary Sheet sp4 - Care sp4 Forms: - Patient Portal Instructions sp4 Prescriptions: - Meclizine 25 mg Oral tablet - take 1 tablet ORAL route every 8 hours As needed PRN dizziness; 30 tablet; sp4 Refills: 0, Product Selection Permitted Signatures: Dispatcher JuicyCanvas EDManju Gonzalez RN RN Shannon Newton RN RN lg3 Potepalov, Zen, MD MD sp4
--- NOTE | 2023-06-03 00:59 | ER ---
Nurse's Notes [facility] Name: Marie Gann Age: 23 yrs Sex: Female : 2000 Arrival Date: 06/02/2023 Time: 21:33 Bed 13 Private MD: Diagnosis: Syncope Near;21 weeks gestation of ;Discomfort of , idiopathic dizziness Presentation: 06/02 21:51 Chief complaint: Syncopal episode yesterday evening, boyfriend witnessed and was able hb to ease her to the floor, today has had multiple near syncopal episodes and intermittent palpitations. Pt is 21 weeks , , THERON 10/10/23. Coronavirus screen: At this time, the client does not indicate any symptoms associated with coronavirus-19. Ebola Screen: No symptoms or risks identified at this time. Initial Sepsis Screen: Does the patient meet any 2 criteria? No. Patient's initial sepsis screen is negative. Does the patient have a suspected source of infection? No. Patient's initial sepsis screen is negative. Risk Assessment: Do you want to hurt yourself or someone else? Patient reports no desire to harm self or others. Onset of symptoms was June 02, 2023. 21:51 Method Of Arrival: Ambulatory hb 21:51 Acuity: AD 3 hb Historical: - Allergies: 21:55 No Known Allergies; hb - Home Meds: 21:55 Vitamin Oral [Active]; hb - PMHx: 21:55 Ovarian cyst; seasonal allergies; hb - PSHx: 21:55 None; hb - Immunization history:: Adult Immunizations up to date. - Social history:: Smoking status: Patient denies any tobacco usage or history of. - Family history:: not pertinent. Screenin:10 [facility] ED Fall Risk Assessment (Adult) History of falling in the last 3 months, lg3 including since admission No falls in past 3 months (0 pts). Abuse screen: Denies threats or abuse. Denies injuries from another. Nutritional screening: No deficits noted. Tuberculosis screening: No symptoms or risk factors identified. Assessment: 22:10 General: Appears in no apparent distress. comfortable, Behavior is calm, cooperative. lg3 Pain: Complains of pain in head Pain does not radiate. Pain currently is 3 out of 10 on a pain scale. Pain began 1 day ago. Neuro: No deficits noted. Snowden Agitation-Sedation Scale (RASS): 0 - Alert and Calm Level of Consciousness is awake, alert, obeys commands, Oriented to person, place, time, situation. Cardiovascular: No deficits noted. Reports palpitations, shortness of breath, Capillary refill < 3 seconds Clubbing of nail beds is absent JVD is absent Patient's skin is warm and dry. Respiratory: No deficits noted. Airway is patent Respiratory effort is even, unlabored, Respiratory pattern is regular, symmetrical. GI: No deficits noted. Reports nausea. : No deficits noted. No signs and/or symptoms were reported regarding the genitourinary system. EENT: No deficits noted. No signs and/or symptoms were reported regarding the EENT system. Derm: No deficits noted. No signs and/or symptoms reported regarding the dermatologic system. Skin is intact, is healthy with good turgor, Skin is dry, Skin is normal, Skin temperature is warm. Musculoskeletal: No deficits noted. No signs and/or symptoms reported regarding the musculoskeletal system. Circulation, motion, and sensation intact. Range of motion: intact in all extremities. 22:58 Reassessment: Patient appears in no apparent distress at this time. No changes from lg3 previously documented assessment. Patient and/or family updated on plan of care and expected duration. Pain level reassessed. Patient is alert, oriented x 3, equal unlabored respirations, skin warm/dry/pink. 06/03 00:10 Reassessment: Patient appears in no apparent distress at this time. No changes from lg3 previously documented assessment. Patient and/or family updated on plan of care and expected duration. Pain level reassessed. Patient is alert, oriented x 3, equal unlabored respirations, skin warm/dry/pink. 01:23 Reassessment: Patient appears in no apparent distress at this time. No changes from lg3 previously documented assessment. Patient and/or family updated on plan of care and expected duration. Pain level reassessed. Patient is alert, oriented x 3, equal unlabored respirations, skin warm/dry/pink. Patient states feeling better. Patient states symptoms have improved. Vital Signs: 06/02 21:51 BP 116 / 95; Pulse 71; Resp 16; Temp 97.9; Pulse Ox 100% on R/A; Weight 61.23 kg; hb Height 5 ft. 4 in. ; Pain 0/10; 06/03 01:23 BP 111 / 76; Pulse 77; Resp 17 S; Pulse Ox 100% on R/A; lg3 06/02 21:51 Body Mass Index 23.17 (61.23 kg, 162.56 cm) hb 06/02 21:51 Pain Scale: Adult hb ED Course: 06/02 21:36 Patient arrived in ED. ag3 21:55 Triage completed. hb 21:55 Arm band placed on. hb 21:57 Zen Kowalski MD is Attending Physician. sp4 22:10 Shannon Newton, RANDOLPH is Primary Nurse. lg3 22:10 Patient has correct armband on for positive identification. Placed in gown. Bed in low lg3 position. Call light in reach. Side rails up X 1. Client placed on continuous cardiac and pulse oximetry monitoring. NIBP monitoring applied. library monitor on. Door closed. Noise minimized. Warm blanket given. Family accompanied patient. 22:10 Patient maintains SpO2 saturation greater than 95% on room air. lg3 22:23 Inserted saline lock: 22 gauge in right antecubital area, using aseptic technique. lg3 Blood collected. 22:23 COVID-19 SARS RT PCR Sent. lg3 22:23 BNP Sent. lg3 22:23 Troponin High Sensitivity Sent. lg3 22:23 Influenza Screen (a \T\ B) Sent. lg3 22:24 CRP Sent. lg3 22:24 CBC with Diff Sent. lg3 22:24 CMP Sent. lg3 22:24 Lipase Sent. lg3 22:24 Urinalysis w/ reflexes Sent. lg3 06/03 01:24 No provider procedures requiring assistance completed. IV discontinued, intact, lg3 bleeding controlled, No redness/swelling at site. Pressure dressing applied. Administered Medications: 06/02 22:24 Drug: NS 0.9% IV 1000 ml IV at 1 bolus Per protocol; 1000 mL bolus Route: IV; Rate: 1 lg3 bolus; Site: right antecubital; 06/03 01:24 Follow up: Response: No adverse reaction; IV Status: Completed infusion; IV Intake: lg3 1000ml 06/02 22:24 Drug: Acetaminophen PO 1000 mg PO once Route: PO; lg3 06/03 01:24 Follow up: Response: No adverse reaction lg3 06/02 22:24 Drug: Meclizine PO 25 mg PO once Route: PO; lg3 06/03 01:24 Follow up: Response: No adverse reaction; Marked relief of symptoms lg3 Medication: 01:24 VIS not applicable for this client. lg3 Intake: 01:24 IV: 1000ml; Total: 1000ml. lg3 Outcome: 00:59 Discharge ordered by . sp4 01:24 Discharged to home ambulatory, with significant other, lg3 01:24 Condition: stable 01:24 Discharge instructions given to patient, Instructed on discharge instructions, follow up and referral plans. medication usage, Demonstrated understanding of instructions, follow-up care, medications, Prescriptions given X 1, 01:25 Patient left the ED. lg3 Signatures: Manju Abarca, RN Diana Rodriguez 3 Shannon Newton, RANDOLPH DICKSON lg3 Zen Kowalski MD MD sp4
[2023-06-03] MEDS ORDERED: DIAZEPAM 5 MG TABLET ONE (01:26)
[2023-06-03] MEDS ORDERED: NA CHLORIDE 0.9% 1,000 ML ONE (01:26)
[2023-06-03 01:34] VITALS: TEMP 97.9; O2SAT 100
[2023-06-03 01:40] VITALS: BP 111/76
--- NOTE | 2023-06-08 14:35 | EKG ---
Test Date: 2023-06-02 Test Time: 22:08:06 Credit Reference Clerk: PRECIOUS MEASUREMENT RESULTS: Intervals: Rate: 73 AL: 178 QRSD: 76 QT: 360 QTc: 396 [place]: P: 40 AL: 178 QRS: 65 T: 36 INTERPRETIVE STATEMENTS: Normal sinus rhythm Normal ECG Compared to ECG 12/08/2016 23:59:08 No significant changes Electronically Signed On 06-08-23 14:18:25 [facility] by Sekou Gonzalez
== END 2023-06-03 01:25 | disposition home or self-care (01) ==
LOC: ER 21:33
DX: O26.892 Other specified pregnancy related conditions, second trimester (principal); R42 Dizziness and giddiness; Z3A.21 21 weeks gestation of pregnancy; Z11.52 Encounter for screening for COVID-19
CPT/HCPCS: 96361; 93005; 85025; 81001; 36415; 84484; 83690; 80053; 83880; 87635; 86140; 87804 ×2; 96360; 99285; J8597; J7030 ×2

== ENCOUNTER 2023-06-26 18:39 | Emergency (ER) | payer OTHER ==
--- OUTSIDE RECORDS SUMMARY | 2023-06-26 18:43 | XMS REPORT | Continuity of Care Document ---
:2000 Author Organization [facility] t Address [address] [facility]. [address] [place] [address] Care Team Providers Name Role Phone PAWEL RENE Primary Care Physician Unavailable RHODA KRISHNAMURTHY Attending Clinician Unavailable RHODA KRISHNAMURTHY Attending Clinician Unavailable Ultrasound, Ang-Mfjona Attending Clinician Unavailable Brook Mari MD Attending Clinician BROOK MARI Attending Clinician Unavailable BROOK MARI Attending Clinician Unavailable Doctor Unassigned, [place] Attending Clinician Unavailable Chelle Renteria RN Attending Clinician Unavailable Lab, Ang - Db Attending Clinician Unavailable Mery Chairez Attending Clinician ESDRAS MC Attending Clinician Unavailable ESDRAS MC Attending Clinician Unavailable Cheyenne Meredith MD Attending Clinician [facility] Attending Clinician Unavailable Sonia Poon MD Attending Clinician SONIA POON Attending Clinician Unavailable Trimester, [facility] Res-1st Attending Clinician Unavailable DAISHA THORNE Attending Clinician Unavailable Daisha Thorne MD Attending Clinician WILIAM BRAND Attending Clinician Unavailable KENIA DONALD Attending Clinician Unavailable KENIA DONALD Attending Clinician Unavailable Mona Garcia DO Attending Clinician MONA GARCIA Attending Clinician Unavailable TRACE SCHMID Attending Clinician Unavailable Aster Hernandez MD Attending Clinician ASTER HERNANDEZ Attending Clinician Unavailable Trace Valdes Attending Clinician ESDRAS [facility] Admitting Clinician Unavailable DAISHA THORNE Admitting Clinician Unavailable Daisha Thorne MD Admitting Clinician Payers Payer Name Policy Type Policy Number Effective Date Expiration Date Magnus CARRERA [id number] 2023 00:00:00 Problems Condition Condition Condition Status Onset Resolution Last Treating Co mments Source Name Details Category Date Date Treatment Clinician Date ASB ASB Disease Active Univers (asymptoma (asymptoma 04-04 it y of tic tic 00:00: [place] bacteriuri bacteriuri 00 Me dical a) a) Branch High-risk High-risk Disease Active Uni vers 04-04 ity of in first in first 00:00: [place] trimester trimester 00 [facility] Rubella Rubella Disease Active Univers non-immune non-immune 04-04 it y of status, status, 00:00: [place] antepartum antepartum 00 Me dical Branch Screening Screening Disease Active Uni vers examinatio examinatio 6-14 it y of n for STD n [place] ST[place] ([place] (sexually 00 [facility] transmitte transmitte Br anch d disease) d disease) IUD IUD Disease Active Univers (intrauter (intrauter 6-14 it y of ine ine 00:00: [place] device) in device) in [address] Branch Low TSH Low TSH Disease Active Univers level level 5-14 ity of 00:00: [place] [address] [place] [address] Branch Allergies, Adverse Reactions, Alerts Allergy Allergy Status Severity Reaction(s) Onset Inactive Treating Comm ents Source Name Type Date Date Clinician NO KNOWN Drug Active Univers ALLERGIE Class ity of S [facility] Social History Social Habit Start Date Stop Date Quantity Comments Source ASSERTION 2023-01-17 University of 00:00:00 [facility] Gender identity Universit y of [facility] Sexual orientation Univer sity of [facility] History SDOH University o f Alcohol Frequency [place] [facility] History [facility] o f Alcohol Std Drinks [place] [facility] [place] History [facility] o f Alcohol Binge [place] [facility] Alcohol intake 2023-06-18 2023-06-18 .43 /d University of 00:00:00 00:00:00 [facility] Exposure to 2022-06-19 2022-06-29 Not sure [facility] SARS-CoV-2 (event) 00:00:00 14:25:00 [facility] Tobacco use and 2022-06-29 2022-06-29 Smokeless Universit y of exposure 00:00:00 00:00:00 tobacco non-user [facility] dical [place] History of Social 2022-01-09 2022-01-09 Univers ity of function 00:00:00 00:00:00 [facility] Alcohol Comment 2022-01-09 2022-01-09 socially Universit y of 00:00:00 00:00:00 [facility] Sex Assigned At [birth year] Universit y of 00:00:00 00:00:00 [facility] Smoking Status Start Date Stop Date Source Never smoked tobacco [facility] Medications Ordered Filled Start Stop Current Ordering Indication Dosage Frequency Signature Comments Components Source Medication Medication Date Date Medication? Clinician (SIG) Name Name ampicillin 2022-07 Yes 250mg Take 1 Univ ers 250 mg 0-25 capsule by ity of capsule 00:00: mouth [place] 00 every 6 Medical (six) Branch hours. ampicillin 2022-07 Yes 250mg Take 1 Univ ers 250 mg 0-25 capsule by ity of capsule 00:00: mouth [place] 00 every 6 Medical (six) Branch hours. ampicillin 2022-07 Yes 250mg Take 1 Univ ers 250 mg 0-25 capsule by ity of capsule 00:00: mouth [place] 00 every 6 Medical (six) Branch hours. ampicillin 2022-07 Yes 250mg Take 1 Univ [...] (six) Branch hours for 7 days. ampicillin 2022-0 Yes [id number] 500mg Take 1 Univers 500 mg 9-07 capsule by ity of capsule 00:00: mouth [place] 00 every 6 Medical (six) Branch hours. ampicillin 2022-0 Yes [id number] 500mg Take 1 Univers 500 mg 9-07 capsule by ity of capsule 00:00: mouth [place] 00 every 6 Medical (six) Branch hours. metroNIDAZO 3-0 Yes [id number] 500mg Take 1 Univers LE (FLAGYL) 9-07 tablet by ity of 500 mg 00:00: mouth [place] tablet 00 every 12 Medical (twelve) Branch hours. ampicillin 2022-0 Yes [id number] 500mg Take 1 Univers 500 mg 9-07 capsule by ity of capsule 00:00: mouth [place] 00 every 6 Medical (six) Branch hours. metroNIDAZO 3-0 Yes [id number] 500mg Take 1 Univers LE (FLAGYL) 9-07 tablet by ity of 500 mg 00:00: mouth [place] tablet 00 every 12 Medical (twelve) Branch hours. ampicillin 2022-0 Yes [id number] 500mg Take 1 Univers 500 mg 9-07 capsule by ity of capsule 00:00: mouth [place] 00 every 6 Medical (six) Branch hours. metroNIDAZO 2023-0 Yes [id number] 500mg Take 1 Univers LE (FLAGYL) 9-07 tablet by ity of 500 mg 00:00: mouth [place] tablet 00 every 12 Medical (twelve) Branch hours. ampicillin 2022-0 Yes [id number] 500mg Take 1 Univers 500 mg 9-07 capsule by ity of capsule 00:00: mouth [place] 00 every 6 Medical (six) Branch hours. metroNIDAZO 2023-0 Yes [id number] 500mg Take 1 Univers LE (FLAGYL) 9-07 tablet by ity of 500 mg 00:00: mouth [place] tablet 00 every 12 Medical (twelve) Branch hours. ampicillin 2023-0 Yes [id number] 500mg Take 1 Univers 500 mg 9-07 capsule by ity of capsule 00:00: mouth [place] 00 every 6 Medical (six) Branch hours. metroNIDAZO 2023-0 Yes [id number] 500mg Take 1 Univers LE (FLAGYL) 9-07 tablet by ity of 500 mg 00:00: mouth [place] tablet 00 every 12 Medical (twelve) Branch hours. ampicillin 2023-0 Yes [id number] 500mg Take 1 Univers 500 mg 9-07 capsule by ity of capsule 00:00: mouth [place] 00 every 6 Medical (six) Branch hours. metroNIDAZO 2023-0 Yes [id number] 500mg Take 1 Univers LE (FLAGYL) 9-07 tablet by ity of 500 mg 00:00: mouth [place] tablet 00 every 12 Medical (twelve) Branch hours. ampicillin 2023-0 Yes [id number] 500mg Take 1 Univers 500 mg 9-07 capsule by ity of capsule 00:00: mouth [place] 00 every 6 Medical (six) Branch hours. metroNIDAZO 2023-0 Yes [id number] 500mg Take 1 Univers LE (FLAGYL) 9-07 tablet by ity of 500 mg 00:00: mouth [place] tablet 00 every 12 Medical (twelve) Branch hours. ampicillin 2023-0 Yes [id number] 500mg Take 1 Univers 500 mg 9-07 capsule by ity of capsule 00:00: mouth [place] 00 every 6 Medical (six) Branch hours. metroNIDAZO 2023-0 Yes [id number] 500mg Take 1 Univers LE (FLAGYL) 9-07 tablet by ity of 500 mg 00:00: mouth [place] tablet 00 every 12 Medical (twelve) Branch hours. ampicillin 2023-0 Yes [id number] 500mg Take 1 Univers 500 mg 9-07 capsule by ity of capsule 00:00: mouth [place] 00 every 6 Medical (six) Branch hours. metroNIDAZO 2023-0 Yes [id number] 500mg Take 1 Univers LE (FLAGYL) 9-07 tablet by ity of 500 mg 00:00: mouth [place] tablet 00 every 12 Medical (twelve) Branch hours. ampicillin 2023-0 Yes [id number] 500mg Take 1 Univers 500 mg 9-07 capsule by ity of capsule 00:00: mouth [place] 00 every 6 Medical (six) Branch hours. metroNIDAZO 2023-0 Yes [id number] 500mg Take 1 Univers LE (FLAGYL) 9-07 tablet by ity of 500 mg 00:00: mouth [place] tablet 00 every 12 Medical (twelve) Branch hours. metroNIDAZO 2023-0 Yes [id number] 500mg Take 1 Univers LE (FLAGYL) 9-07 tablet by ity of 500 mg 00:00: mouth [place] tablet 00 every 12 Medical (twelve) Branch hours. metroNIDAZO 2023-0 Yes [id number] 500mg Take 1 Univers LE (FLAGYL) 9-07 tablet by ity of 500 mg 00:00: mouth [place] tablet 00 every 12 Medical (twelve) Branch hours. metroNIDAZO 2023-0 Yes [id number] 500mg Take 1 Univers LE (FLAGYL) 9-07 tablet by ity of 500 mg 00:00: mouth [place] tablet 00 every 12 Medical (twelve) Branch hours. metroNIDAZO 2023-0 Yes [id number] 500mg Take 1 Univers LE (FLAGYL) 9-07 tablet by ity of 500 mg 00:00: mouth [place] tablet 00 every 12 Medical (twelve) Branch hours. metroNIDAZO 2023-0 Yes [id number] 500mg Take 1 Univers LE (FLAGYL) 9-07 tablet by ity of 500 mg 00:00: mouth [place] tablet 00 every 12 Medical (twelve) Branch hours. metroNIDAZO 2023-0 Yes [id number] 500mg Take 1 Univers LE (FLAGYL) 9-07 tablet by ity of 500 mg 00:00: mouth [place] tablet 00 every 12 Medical (twelve) Branch hours. metroNIDAZO 2023-0 Yes [id number] 500mg Take 1 Univers LE (FLAGYL) 9-07 tablet by ity of 500 mg 00:00: mouth [place] tablet 00 every 12 Medical (twelve) Branch hours. ampicillin 2023-0 2023- No [id number] 500mg Take 1 Univers 500 mg 9-07 10-19 capsule by ity of capsule 00:00: 00:00 mouth [place] 00 :00 every 6 Medical (six) Branch hours. ampicillin 2023-0 2023- No [id number] 500mg Take 1 Univers 500 mg 9-07 10-19 capsule by ity of capsule 00:00: 00:00 mouth [place] 00 :00 every 6 Medical (six) Branch hours. metroNIDAZO 2023-0 2023- No [id number] 500mg Take 1 Univers LE (FLAGYL) 03-08 tablet by it y of 500 mg 00:00: 04:59 mouth in [place] tablet 00 :00 the Medical morning Branch and 1 tablet in the evening. Do all this for 5 days. metroNIDAZO 2022-2022- No [id number] 500mg Take 1 Univers LE (FLAGYL) 03-08 tablet by it y of 500 mg 00:00: 04:59 mouth in [place] tablet 00 :00 the Medical morning Branch and 1 tablet in the evening. Do all this for 5 days. ondansetron 0 Yes [id number] 4mg Take 1 Univers (ZOFRAN) 4 8-10 tablet by ity of mg tablet 00:00: mouth [place] 00 every 8 Medical (eight) Branch hours as needed for Nausea and Vomiting (N/V). ondansetron 0 Yes [id number] 4mg Take 1 Univers (ZOFRAN) 4 8-10 tablet by ity of mg tablet 00:00: mouth [place] 00 every 8 Medical (eight) Branch hours as needed for Nausea and Vomiting (N/V). ondansetron 0 Yes [id number] 4mg Take 1 Univers (ZOFRAN) 4 8-10 tablet by ity of mg tablet 00:00: mouth [place] 00 every 8 Medical (eight) Branch hours as needed for Nausea and Vomiting (N/V). ondansetron 2022-0 Yes [id number] 4mg Take 1 Univers (ZOFRAN) 4 8-10 tablet by ity of mg tablet 00:00: mouth [place] 00 every 8 Medical (eight) Branch hours as needed for Nausea and Vomiting (N/V). ondansetron 0 Yes [id number] 4mg Take 1 Univers (ZOFRAN) 4 8-10 tablet by ity of mg tablet 00:00: mouth [place] 00 every 8 Medical (eight) Branch hours as needed for Nausea and Vomiting (N/V). ondansetron 2022-0 Yes [id number] 4mg Take 1 Univers (ZOFRAN) 4 8-10 tablet by ity of mg tablet 00:00: mouth [place] 00 every 8 Medical (eight) Branch hours as needed for Nausea and Vomiting (N/V). ondansetron 2023-0 Yes [id number] 4mg Take 1 Univers (ZOFRAN) 4 8-10 tablet by ity of mg tablet 00:00: mouth [place] 00 every 8 Medical (eight) Branch hours as needed for Nausea and Vomiting (N/V). ondansetron 3-0 Yes [id number] 4mg Take 1 Univers (ZOFRAN) 4 8-10 tablet by ity of mg tablet 00:00: mouth [place] 00 every 8 Medical (eight) Branch hours as needed for Nausea and Vomiting (N/V). ondansetron 3-0 Yes [id number] 4mg Take 1 Univers (ZOFRAN) 4 8-10 tablet by ity of mg tablet 00:00: mouth [place] 00 every 8 Medical (eight) Branch hours as needed for Nausea and Vomiting (N/V). ondansetron 3-0 Yes [id number] 4mg Take 1 Univers (ZOFRAN) 4 8-10 tablet by ity of mg tablet 00:00: mouth [place] 00 every 8 Medical (eight) Branch hours as needed for Nausea and Vomiting (N/V). ondansetron 3-0 Yes [id number] 4mg Take 1 Univers (ZOFRAN) 4 8-10 tablet by ity of mg tablet 00:00: mouth [place] 00 every 8 Medical (eight) Branch hours as needed for Nausea and Vomiting (N/V). ondansetron 3-0 Yes [id number] 4mg Take 1 Univers (ZOFRAN) 4 8-10 tablet by ity of mg tablet 00:00: mouth [place] 00 every 8 Medical (eight) Branch hours as needed for Nausea and Vomiting (N/V). ondansetron 3-0 Yes [id number] 4mg Take 1 Univers (ZOFRAN) 4 8-10 tablet by ity of mg tablet 00:00: mouth [place] 00 every 8 Medical (eight) Branch hours as needed for Nausea and Vomiting (N/V). ondansetron 2023-0 Yes [id number] 4mg Take 1 Univers (ZOFRAN) 4 8-10 tablet by ity of mg tablet 00:00: mouth [place] 00 every 8 Medical (eight) Branch hours as needed for Nausea and Vomiting (N/V). ondansetron 2023-0 Yes [id number] 4mg Take 1 Univers (ZOFRAN) 4 8-10 tablet by ity of mg tablet 00:00: mouth [place] 00 every 8 Medical (eight) Branch hours as needed for Nausea and Vomiting (N/V). ondansetron 2023-0 Yes [id number] 4mg Take 1 Univers (ZOFRAN) 4 8-10 tablet by ity of mg tablet 00:00: mouth [place] 00 every 8 Medical (eight) Branch hours as needed for Nausea and Vomiting (N/V). ondansetron 2023-0 Yes [id number] 4mg Take 1 Univers (ZOFRAN) 4 8-10 tablet by ity of mg tablet 00:00: mouth [place] 00 every 8 Medical (eight) Branch hours as needed for Nausea and Vomiting (N/V). ondansetron 2023-0 Yes [id number] 4mg Take 1 Univers (ZOFRAN) 4 8-10 tablet by ity of mg tablet 00:00: mouth [place] 00 every 8 Medical (eight) Branch hours as needed for Nausea and Vomiting (N/V). ondansetron 2023-0 Yes [id number] 4mg Take 1 Univers (ZOFRAN) 4 8-10 tablet by ity of mg tablet 00:00: mouth [place] 00 every 8 Medical (eight) Branch hours as needed for Nausea and Vomiting (N/V). ondansetron 3-0 Yes [id number] 4mg Take 1 Univers (ZOFRAN) 4 8-10 tablet by ity of mg tablet 00:00: mouth [place] 00 every 8 Medical (eight) Branch hours as needed for Nausea and Vomiting (N/V). ondansetron 2023-0 Yes [id number] 4mg Take 1 Univers (ZOFRAN) 4 8-10 tablet by ity of mg tablet 00:00: mouth [place] 00 every 8 Medical (eight) Branch hours as needed for Nausea and Vomiting (N/V). ondansetron 2023-0 Yes [id number] 4mg Take 1 Univers (ZOFRAN) 4 8-10 tablet by ity of mg tablet 00:00: mouth [place] 00 every 8 Medical (eight) Branch hours as needed for Nausea and Vomiting (N/V). ondansetron 2023-0 Yes [id number] 4mg Take 1 Univers (ZOFRAN) 4 8-10 tablet by ity of mg tablet 00:00: mouth [place] 00 every 8 Medical (eight) Branch hours as needed for Nausea and Vomiting (N/V). ondansetron Yes [id number] 4mg Take 1 Univers (ZOFRAN) 4 8-10 [...] Branch 02/13/23 at 1530, Routine 2022- No [id number] 1{capsu Take 1 Univers 26-iron 02-13 le} capsule by ity o f ps-folic-dh 00:00: 04:59 mouth [place] a 29 mg 00 :00 the Medical iron- 1 morning Branch mg-200 mg for 30 per capsule days. 2022- No [id number] 1{capsu Take 1 Univers 26-iron -16 03- le} capsule by ity o f ps-folic-dh 00:00: 04:59 mouth [place] a 29 mg 00 :00 the Medical iron- 1 morning Branch mg-200 mg for 30 per capsule days. 2022- No [id number] 1{capsu Take 1 Univers 26-iron 03-16 le} capsule by ity o f ps-folic-dh 00:00: 04:59 mouth [place] a 29 mg 00 :00 the Medical iron- 1 morning Branch mg-200 mg for 30 per capsule days. 2022- No [id number] 1{capsu Take 1 Univers 26-iron 7-16 03- le} capsule by ity o f ps-folic-dh 00:00: 04:59 mouth [place] a 29 mg 00 :00 the Medical iron- 1 morning Branch mg-200 mg for 30 per capsule days. 2022- No [id number] 1{capsu Take 1 Univers 26-iron -03-16 le} capsule by ity o f ps-folic-dh 00:00: 04:59 mouth [place] a 29 mg 00 :00 the Medical iron- 1 morning Branch mg-200 mg for 30 per capsule days. cefdinir 2022- No [id number] 300mg Take 1 U nivers 300 mg 02-13 capsule by ity of capsule 00:00: 04:59 mouth [place] 00 :00 every 12 Medical (twelve) Branch hours for 7 days. cefdinir 2022- No [id number] 300mg Take 1 U nivers 300 mg 02-13 capsule by ity of capsule 00:00: 04:59 mouth [place] 00 :00 every 12 Medical (twelve) Branch hours for 7 days. norgestimat 2021-07 Yes [id number] 1{tbl} Take 1 Univers e-ethinyl 2-02 tablet by ity o f estradioL 00:00: mouth [place] 0.25-35 00 the Medical mg-mcg per morning. Branc h tablet norgestimat 2021-07 Yes [id number] 1{tbl} Take 1 Univers e-ethinyl 2-02 tablet by ity o f estradioL 00:00: mouth [place] 0.25-35 00 the Medical mg-mcg per morning. Branc h tablet norgestimat 2021-07 Yes [id number] 1{tbl} Take 1 Univers e-ethinyl 2-02 tablet by ity o f estradioL 00:00: mouth [place] 0.25-35 00 the Medical mg-mcg per morning. Branc h tablet norgestimat 2021-07 Yes [id number] 1{tbl} Take 1 Univers e-ethinyl 2-02 tablet by ity o f estradioL 00:00: mouth [place] 0.25-35 00 the Medical mg-mcg per morning. Branc h tablet norgestimat 2021-07 Yes [id number] 1{tbl} Take 1 Univers e-ethinyl 2-02 tablet by ity o f estradioL 00:00: mouth [place] 0.25-35 00 the Medical mg-mcg per morning. Branc h tablet norgestimat 2021-07 Yes [id number] 1{tbl} Take 1 Univers e-ethinyl 2-02 tablet by ity o f estradioL 00:00: mouth [place] 0.25-35 00 the Medical mg-mcg per morning. Branc h tablet norgestimat 2021-07 Yes [id number] 1{tbl} Take 1 Univers e-ethinyl 2-02 tablet by ity o f estradioL 00:00: mouth [place] 0.25-35 00 the Medical mg-mcg per morning. Branc h tablet norgestimat 2021-07 Yes [id number] 1{tbl} Take 1 Univers e-ethinyl 2-02 tablet by ity o f estradioL 00:00: mouth [place] 0.25-35 00 the Medical mg-mcg per morning. Branc h tablet norgestimat 2021-07 Yes [id number] 1{tbl} Take 1 Univers e-ethinyl 2-02 tablet by ity o f estradioL 00:00: mouth [place] 0.25-35 00 the Medical mg-mcg per morning. Branc h tablet norgestimat 2021-07 Yes [id number] 1{tbl} Take 1 Univers e-ethinyl 2-02 tablet by ity o f estradioL 00:00: mouth [place] 0.25-35 00 the Medical mg-mcg per morning. Branc h tablet norgestimat 2021-07 Yes [id number] 1{tbl} Take 1 Univers e-ethinyl 2-02 tablet by ity o f estradioL 00:00: mouth [place] 0.25-35 00 the Medical mg-mcg per morning. Branc h tablet norgestimat 2021-07 Yes [id number] 1{tbl} Take 1 Univers e-ethinyl 2-02 tablet by ity o f estradioL 00:00: mouth [place] 0.25-35 00 the Medical mg-mcg per morning. Branc h tablet norgestimat 2021-07 Yes [id number] 1{tbl} Take 1 Univers e-ethinyl 2-02 tablet by ity o f estradioL 00:00: mouth [place] 0.25-35 00 the Medical mg-mcg per morning. Branc h tablet norgestimat 2021-07 Yes [id number] 1{tbl} Take 1 Univers e-ethinyl 2-02 tablet by ity o f estradioL 00:00: mouth [place] 0.25-35 00 the Medical mg-mcg per morning. Branc h tablet norgestimat 2021-07 Yes [id number] 1{tbl} Take 1 Univers e-ethinyl 2-02 tablet by ity o f estradioL 00:00: mouth [place] 0.25-35 00 the Medical mg-mcg per morning. Branc h tablet norgestimat 2021-07 Yes [id number] 1{tbl} Take 1 Univers e-ethinyl 2-02 tablet by ity o f estradioL 00:00: mouth [place] 0.25-[place] 00 the Medical mg-mcg per morning. Branc h tablet norgestimat 2021-07 Yes [id number] 1{tbl} Take 1 Univers e-ethinyl 2-02 tablet by ity o f estradioL 00:00: mouth [place] 0.25-35 00 the Medical mg-mcg per morning. Branc h tablet norgestimat 2021-07- No [id number] 1{tbl} Take 1 Univers e-ethinyl 2-02 08-10 tablet by ity of estradioL 00:00: 00:00 mouth [place] 0.25-35 00 :00 the Medical mg-mcg per morning. Branc h tablet ondansetron 2021-07- No 4mg 4 mg, Univ ers (ZOFRAN-ODT 0-21 10-21 Oral, ity of ) 15:30: 14:23 ONCE, 1 [place] disintegrat 00 :00 dose, On Medi murali ing tablet Fri Branch 4 mg 05/18/22 at 1030, Routine ondansetron 2021-07 Yes [id number] 4mg Take 1 Univers 4 mg 0-21 tablet by ity of disintegrat 00:00: mouth [place] ing tablet 00 every 8 Medica l (eight) Branch hours as needed for Nausea and Vomiting (N/V). ondansetron 2021-07 Yes [id number] 4mg Take 1 Univers 4 mg 0-21 tablet by ity of disintegrat 00:00: mouth [place] ing tablet 00 every 8 Medica l (eight) Branch hours as needed for Nausea and Vomiting (N/V). ondansetron 2021-07 Yes [id number] 4mg Take 1 Univers 4 mg 0-21 tablet by ity of disintegrat 00:00: mouth [place] ing tablet 00 every 8 Medica l (eight) Branch hours as needed for Nausea and Vomiting (N/V). ondansetron 2021-07 Yes [id number] 4mg Take 1 Univers 4 mg 0-21 tablet by ity of disintegrat 00:00: mouth [place] ing tablet 00 every 8 Medica l (eight) Branch hours as needed for Nausea and Vomiting (N/V). ondansetron 2021-07 Yes [id number] 4mg Take 1 Univers 4 mg 0-21 tablet by ity of disintegrat 00:00: mouth [place] ing tablet 00 every 8 Medica l (eight) Branch hours as needed for Nausea and Vomiting (N/V). ondansetron 2021-07 Yes [id number] 4mg Take 1 Univers 4 mg 0-21 tablet by ity of disintegrat 00:00: mouth [place] ing tablet 00 every 8 Medica l (eight) Branch hours as needed for Nausea and Vomiting (N/V). ondansetron 2021-07 Yes [id number] 4mg Take 1 Univers 4 mg 0-21 tablet by ity of disintegrat 00:00: mouth [place] ing tablet 00 every 8 Medica l (eight) Branch hours as needed for Nausea and Vomiting (N/V). ondansetron 2021-07 Yes [id number] 4mg Take 1 Univers 4 mg 0-21 tablet by ity of disintegrat 00:00: mouth [place] ing tablet 00 every 8 Medica l (eight) Branch hours as needed for Nausea and Vomiting (N/V). ondansetron 2021-07 Yes [id number] 4mg Take 1 Univers 4 mg 0-21 tablet by ity of disintegrat 00:00: mouth [place] ing tablet 00 every 8 Medica l (eight) Branch hours as needed for Nausea and Vomiting (N/V). ondansetron 2021-07 Yes [id number] 4mg Take 1 Univers 4 mg 0-21 tablet by ity of disintegrat 00:00: mouth [place] ing tablet 00 every 8 Medica l (eight) Branch hours as needed for Nausea and Vomiting (N/V). ondansetron 2021-07 Yes [id number] 4mg Take 1 Univers 4 mg 0-21 tablet by ity of disintegrat 00:00: mouth [place] ing tablet 00 every 8 Medica l (eight) Branch hours as needed for Nausea and Vomiting (N/V). ondansetron 2021-07 Yes [id number] 4mg Take 1 Univers 4 mg 0-21 tablet by ity of disintegrat 00:00: mouth [place] ing tablet 00 every 8 Medica l (eight) Branch hours as needed for Nausea and Vomiting (N/V). ondansetron 2021-07 Yes [id number] 4mg Take 1 Univers 4 mg 0-21 tablet by ity of disintegrat 00:00: mouth [place] ing tablet 00 every 8 Medica l (eight) Branch hours as needed for Nausea and Vomiting (N/V). ondansetron 2021-07 Yes [id number] 4mg Take 1 Univers 4 mg 0-21 tablet by ity of disintegrat 00:00: mouth [place] ing tablet 00 every 8 Medica l (eight) Branch hours as needed for Nausea and Vomiting (N/V). ondansetron 2021-07 Yes [id number] 4mg Take 1 Univers 4 mg 0-21 tablet by ity of disintegrat 00:00: mouth [place] ing tablet 00 every 8 Medica l (eight) Branch hours as needed for Nausea and Vomiting (N/V). ondansetron 2021-07 Yes [id number] 4mg Take 1 Univers 4 mg 0-21 tablet by ity of disintegrat 00:00: mouth [place] ing tablet 00 every 8 Medica l (eight) Branch hours as needed for Nausea and Vomiting (N/V). ondansetron 2021-07 Yes [id number] 4mg Take 1 Univers 4 mg 0-21 tablet by ity of disintegrat 00:00: mouth [place] ing tablet 00 every 8 Medica l (eight) Branch hours as needed for Nausea and Vomiting (N/V). ondansetron 2021-07 Yes [id number] 4mg Take 1 Univers 4 mg 0-21 tablet by ity of disintegrat 00:00: mouth [place] ing tablet 00 every 8 Medica l (eight) Branch hours as needed for Nausea and Vomiting (N/V). ondansetron 2021-07- No [id number] 4mg Take 1 Univers 4 mg 0-21 08-10 tablet by ity of disintegrat 00:00: 00:00 [place] tablet 00 :00 every 8 Medica l (eight) Branch hours as needed for Nausea and Vomiting (N/V). norgestimat Yes [id number] 1{tbl} Take 1 Univers e-ethinyl 6-16 tablet by ity o f estradioL 00:00: mouth [place] 0.25-35 00 daily. Medical mg-mcg per Branch tablet norgestimat Yes [id number] 1{tbl} Take 1 Univers e-ethinyl 6-16 tablet by ity o f estradioL 00:00: mouth [place] 0.25-35 00 daily. Medical mg-mcg per Branch tablet norgestimat 2021- No [id number] 1{tbl} Take 1 Univers e-ethinyl 6-16 12-02 tablet by ity of estradioL 00:00: 00:00 mouth [place] 0.25-35 00 :00 daily. Medical mg-mcg per Branch tablet Immunizations Ordered Filled Date Status Comments Source Immunization Name Immunization Name HPV9 2018-10-20 Completed University of 00:00:00 [facility] HPV9 2018-10-20 Completed University of 00:00:00 [facility] HPV9 2018-10-20 Completed University of 00:00:00 [facility] HPV9 2018-10-20 Completed University of 00:00:00 [facility] HPV9 2018-10-20 Completed University of 00:00:00 [facility] HPV9 2018-10-20 Completed University of 00:00:00 [facility] HPV9 2018-10-20 Completed University of 00:00:00 [facility] HPV9 2018-10-20 Completed University of 00:00:00 [facility] HPV9 2018-10-20 Completed University of 00:00:00 [facility] HPV9 2018-10-20 Completed University of 00:00:00 [facility] HPV9 2018-10-20 Completed University of 00:00:00 [facility] HPV9 2018-10-20 Completed University of 00:00:00 [facility] HPV9 2018-10-20 Completed University of 00:00:00 [facility] HPV9 2018-10-20 Completed University of 00:00:00 [facility] HPV9 2018-10-20 Completed University of 00:00:00 [facility] HPV9 2018-10-20 Completed University of 00:00:00 [facility] HPV9 2018-10-20 Completed University of 00:00:00 [facility] HPV9 2018-10-20 Completed University of 00:00:00 [facility] HPV9 2018-10-20 Completed University of 00:00:00 [facility] HPV9 2018-10-20 Completed University of 00:00:00 [facility] HPV9 2018-10-20 Completed University of 00:00:00 [facility] HPV9 2018-10-20 Completed University of 00:00:00 [facility] HPV9 2018-10-20 Completed University of 00:00:00 [facility] HPV9 2018-10-20 Completed University of 00:00:00 [facility] HPV9 2018-10-20 Completed University of 00:00:00 [facility] HPV9 2018-10-20 Completed University of 00:00:00 [facility] HPV9 2018-10-20 Completed University of 00:00:00 [facility] HPV9 2018-10-20 Completed University of 00:00:00 [facility] HPV9 2018-10-20 Completed University of 00:00:00 [facility] HPV9 2018-10-20 Completed University of 00:00:00 [facility] HPV9 2018-10-20 Completed University of 00:00:00 [facility] HPV9 2017-04-10 Completed University of 00:00:00 [facility] HPV9 2017-04-10 Completed University of 00:00:00 [facility] HPV9 2017-04-10 Completed University of 00:00:00 [facility] HPV9 2017-04-10 Completed University of [...] Branch HPV9 2017-04-10 Completed University of 00:00:00 [facility] HPV9 2017-04-10 Completed University of [...] University of 00:00:00 [facility] HPV9 2016-07-16 Completed University of 00:00:00 [facility] HPV9 2016-07-16 Completed University of 00:00:00 [facility] HPV9 2016-07-16 Completed University of 00:00:00 [facility] HPV9 2016-07-16 Completed University of 00:00:00 [facility] HPV9 2016-07-16 Completed University of 00:00:00 [facility] HPV9 2016-07-16 Completed University of 00:00:00 [facility] HPV9 2016-07-16 Completed University of 00:00:00 [facility] HPV9 2016-07-16 Completed University of 00:00:00 [facility] HPV9 2016-07-16 Completed University of 00:00:00 [facility] HPV9 2016-07-16 Completed University of 00:00:00 [facility] HPV9 2016-07-16 Completed University of 00:00:00 [facility] HPV9 2016-07-16 Completed University of 00:00:00 [facility] HPV9 2016-07-16 Completed University of 00:00:00 [facility] HPV9 2016-07-16 Completed University of 00:00:00 [facility] HPV9 2016-07-16 Completed University of 00:00:00 [facility] HPV9 2016-07-16 Completed University of 00:00:00 [facility] HPV9 2016-07-16 Completed University of 00:00:00 [facility] HPV9 2016-07-16 Completed University of 00:00:00 [facility] HPV9 2016-07-16 Completed University of 00:00:00 [facility] HPV9 2016-07-16 Completed University of 00:00:00 [facility] HPV9 2016-07-16 Completed University of 00:00:00 [facility] HPV9 2016-07-16 Completed University of 00:00:00 [facility] HPV9 2016-07-16 Completed University of 00:00:00 [facility] HPV9 2016-07-16 Completed University of 00:00:00 [facility] HPV9 2016-07-16 Completed University of 00:00:00 [facility] HPV9 2016-07-16 Completed University of 00:00:00 [facility] HPV9 2016-07-16 Completed University of 00:00:00 [facility] HPV9 2016-07-16 Completed University of 00:00:00 [facility] HPV9 2016-07-16 Completed University of 00:00:00 [facility] HPV9 2016-07-16 Completed University of 00:00:00 [facility] HPV9 2016-07-16 Completed University of 00:00:00 [facility] HPV9 Unknown Completed [facility] HPV9 Unknown Completed [facility] HPV9 Unknown Completed [facility] HPV9 Unknown Completed [facility] HPV9 Unknown Completed [facility] HPV9 Unknown Completed [facility] HPV9 Unknown Completed [facility] HPV9 Unknown Completed [facility] HPV9 Unknown Completed [facility] HPV9 Unknown Completed [facility] HPV9 Unknown Completed [facility] HPV9 Unknown Completed [facility] HPV9 Unknown Completed [facility] HPV9 Unknown Completed [facility] HPV9 Unknown Completed [facility] HPV9 Unknown Completed [facility] HPV9 Unknown Completed [facility] HPV9 Unknown Completed [facility] HPV9 Unknown Completed [facility] HPV9 Unknown Completed [facility] HPV9 Unknown Completed [facility] HPV9 Unknown Completed [facility] HPV9 Unknown Completed [facility] HPV9 Unknown Completed [facility] HPV9 Unknown Completed [facility] HPV9 Unknown Completed [facility] HPV9 Unknown Completed [facility] HPV9 Unknown Completed [facility] HPV9 Unknown Completed [facility] HPV9 Unknown Completed [facility] HPV9 Unknown Completed [facility] HPV9 Unknown Completed [facility] HPV9 Unknown Completed [facility] HPV9 Unknown Completed [facility] HPV9 Unknown Completed [facility] HPV9 Unknown Completed [facility] Vital Signs Vital Name Observation Time Observation Value Comments Source Systolic blood 2023-06-18 22:23:00 113 mm[Hg] Univer sity of pressure [facility] Diastolic blood 2023-06-18 22:23:00 87 mm[Hg] Unive rsity of pressure [facility] Heart rate 2023-06-18 22:23:00 87 /min Universi [facility] Body temperature 2023-06-18 22:23:00 36.89 Paige Univ ersity [facility] Respiratory rate 2023-06-18 22:23:00 16 /min Univ ersity of [facility] Body height 2023-06-18 22:23:00 160 cm Universi ty [facility] [place] [facility] Body weight 2023-06-18 22:23:00 63.05 kg Universi ty [facility] [place] [facility] BMI 2023-06-18 22:23:00 24.62 kg/m2 Universi ty of [facility] Systolic blood 2023-05-02 16:58:00 118 mm[Hg] Univer sity of pressure [facility] Diastolic blood 2023-05-02 16:58:00 74 mm[Hg] Unive rsity of pressure [facility] Heart rate 2023-05-02 16:58:00 106 /min Universi ty of [facility] Body temperature 2023-05-02 16:58:00 36.61 Paige Univ ersity of [facility] Respiratory rate 2023-05-02 16:58:00 16 /min Univ ersity of [facility] Body height 2023-05-02 16:58:00 160 cm Universi ty [facility] Body weight 2023-05-02 16:58:00 62.007 kg Universi ty of [facility] BMI 2023-05-02 16:58:00 24.22 kg/m2 Universi ty of [facility] Systolic blood 2023-04-04 18:17:00 113 mm[Hg] Univer sity of pressure [facility] Diastolic blood 2023-04-04 18:17:00 70 mm[Hg] Unive rsity of pressure [facility] Heart rate 2023-04-04 18:17:00 70 /min Universi ty of [facility] Body temperature 2023-04-04 18:17:00 36.72 Paige Univ ersity of [facility] Respiratory rate 2023-04-04 18:17:00 16 /min Univ ersity of [facility] Body height 2023-04-04 18:17:00 160 cm Universi ty [facility] Body weight 2023-04-04 18:17:00 58.333 kg Universi ty [facility] BMI 2023-04-04 18:17:00 22.78 kg/m2 Universi ty [facility] Systolic blood 2023-03-07 20:27:00 110 mm[Hg] Univer sity of pressure [facility] Diastolic blood 2023-03-07 20:27:00 73 mm[Hg] Unive rsity of pressure [facility] Heart rate 2023-03-07 20:27:00 64 /min Universi ty of [facility] Respiratory rate 2023-03-07 20:27:00 18 /min Univ ersity of [facility] Body height 2023-03-07 20:27:00 160 cm Universi ty [facility] Body weight 2023-03-07 20:27:00 59.421 kg Universi ty [facility] BMI 2023-03-07 20:27:00 23.21 kg/m2 Universi ty [facility] Systolic blood 2023-02-14 01:00:00 120 mm[Hg] Univer sity of pressure [facility] Diastolic blood 2023-02-14 01:00:00 79 mm[Hg] Unive rsity of pressure [facility] Heart rate 2023-02-14 01:00:00 87 /min Universi ty of [facility] Respiratory rate 2023-02-14 01:00:00 18 /min Univ ersity of [facility] Oxygen saturation in 2023-02-14 01:00:00 99 /min University of Arterial blood by [facility] Pulse oximetry Branch Body temperature 2023-02-13 18:47:00 36.61 Paige Univ ersity of [facility] Systolic blood 2023-02-11 15:26:00 122 mm[Hg] Univer sity of pressure [facility] Diastolic blood 2023-02-11 15:26:00 81 mm[Hg] Unive rsity of pressure [facility] Heart rate 2023-02-11 15:26:00 75 /min Universi ty [facility] Body temperature 2023-02-11 15:26:00 36.06 Paige Univ ersity of [facility] Respiratory rate 2023-02-11 15:26:00 18 /min Univ ersity of [facility] Body height 2023-02-11 15:26:00 160 cm Universi ty of [facility] Body weight 2023-02-11 15:26:00 58.06 kg Universi ty of [facility] BMI 2023-02-11 15:26:00 22.67 kg/m2 [facility]i [facility] [place] [facility] Systolic blood 2023-02-08 09:30:00 113 mm[Hg] Univer sity of pressure [facility] Diastolic blood 2023-02-08 09:30:00 88 mm[Hg] Unive rsity of pressure [facility] Heart rate 2023-02-08 09:30:00 79 /min Universi ty [facility] Respiratory rate 2023-02-08 09:30:00 15 /min Univ ersity of [facility] Oxygen saturation in 2023-02-08 09:30:00 95 /min University Arterial blood by [facility] Pulse oximetry Branch Body temperature 2023-02-08 07:14:00 37.17 Paige Univ ersity of [facility] Body weight 2023-02-08 07:14:00 58.968 kg Universi ty of [facility] BMI 2023-02-08 07:14:00 23.03 kg/m2 Universi ty of [facility] Systolic blood 2022-06-29 20:54:00 119 mm[Hg] Univer sity of pressure [facility] Diastolic blood 2022-06-29 20:54:00 82 mm[Hg] Unive rsity of pressure [facility] Heart rate 2022-06-29 20:54:00 78 /min Universi ty of [facility] Body temperature 2022-06-29 20:54:00 37.06 Paige Univ ersity of [facility] Respiratory rate 2022-06-29 20:54:00 18 /min Univ ersity of [facility] Body height 2022-06-29 20:54:00 160 cm Universi ty of [facility] Body weight 2022-06-29 20:54:00 58.06 kg Universi ty [facility] BMI 2022-06-29 20:54:00 22.67 kg/m2 Universi ty [facility] Systolic blood 2022-05-18 14:17:00 106 mm[Hg] Univer sity of pressure [facility] Diastolic blood 2022-05-18 14:17:00 80 mm[Hg] Unive rsity of pressure [facility] Heart rate 2022-05-18 14:17:00 78 /min Universi ty of [facility] Body temperature 2022-05-18 14:17:00 36.67 Paige Univ ersity of [facility] Respiratory rate 2022-05-18 14:17:00 18 /min [facility] Body height 2022-05-18 14:17:00 160 cm Universi ty of [facility] Body weight 2022-05-18 14:17:00 56.7 kg Universi ty [facility] BMI 2022-05-18 14:17:00 22.14 [facility]m2 [facility] Oxygen saturation in 2022-05-18 14:17:00 99 /min [facility] Arterial blood by [facility] Pulse oximetry Branch Systolic blood 2022-01-11 14:20:00 109 mm[Hg] Univer sity of [facility] Diastolic blood 2022-01-11 14:20:00 71 mm[Hg] Unive [facility] Heart rate 2022-01-11 14:20:00 76 /min Universi [facility] Body temperature 2022-01-11 14:20:00 36.89 Paige [facility] Respiratory rate 2022-01-11 14:20:00 18 /min [facility] Body height 2022-01-11 14:20:00 162.6 cm Universi ty [facility] Body weight 2022-01-11 14:20:00 61.236 kg [facility] BMI 2022-01-11 14:20:00 23.17 kg/m2 [facility] Procedures Procedure Date / Time Performing Clinician Source Performed POCT URINALYSIS W/O 2023-06-18 00:00:00 [facility] 2023-06-04 19:56:00 Holger-Polo Duvalsol Unive [facility] Medical [facility] URINE CULTURE 2023-05-02 17:05:00 Polo Krishnamurthysol Univer [facility] POCT URINALYSIS W/O 2023-05-02 00:00:00 [facility] SC[facility] LAB RESULTS 2023-04-05 05:01:00 [facility], [facility]IN[facility]YSIS W/O 2023-04-04 00:00:00 [facility] OB TRANSVAGINAL 2023-03-07 20:54:56 Rhoda Krishnamurthy [facility] 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 CLINIC 2023-03-07 05:01:00 Doctor Unassigned, No [facility] ULTRASOUND Name [facility] POCT TEST 2023-03-07 00:00:00 [facility]IS W/O 2023-03-07 00:00:00 [facility] (LAB 2023-02-13 23:50:00 Esdras [facility] ONLY) [facility] Branch URINALYSIS 2023-02-13 23:29:00 [facility] BASIC METABOLIC PANEL 2023-02-13 21:01:00 Anna Brown [facility] (NA, K, CL, CO2, [facility] GLUCOSE, BUN, CREATININE, CA) TOTAL BETA HCG ASSAY 2023-02-13 21:01:00 Anna Brown [facility] CBC WITH DIFF 2023-02-13 21:01:00 [facility] HB ABO GROUPING 2023-02-13 21:01:00 [facility] CONSENT/REFUSAL FOR 2023-02-13 18:38:52 Doctor [facility]igned, [facility] Name [facility] POCT TEST 2022-06-29 00:00:00 Kenia Donald [facility] POCT TEST 2022-05-18 14:24:00 Mona Garcia [facility] CONSENT/REFUSAL FOR 2022-05-18 14:12:43 Doctor Unassigned, No [facility] Name [facility] Encounters Start End Encounter Admission Attending Care Care Encounter Source Date/Time Date/Time Type Type Clinicians Facility Department ID 2023-07-162023-07-16 Outpatient R POLO KRISHNAMURTHYSOL [facility] U [facility] [id number] Univers 16:00:00 16:00:00 [facility] [place] [facility] 2023-07-09 2023-07-09 Outpatient R [facility] [id number] Univers 08:45:00 08:45:00 ity of [facility] 2023-06-18 2023-06-18 Outpatient R POLO KRISHNAMURTHYSOL [facility] U [facility] [id number] Univers 16:15:00 16:33:53 BERTRANDPOLO GARCIASOL [facility] 2023-06-18 2023-06-18 [facility] 1.2.840.114 [id number] Univers 16:15:00 16:33:53 Rhoda nagy 350.1.13.10 ity of [place] [id number] [address] 2023-06-04 2023-06-04 Telephone Operator Receptionist [facility] 1.2 .840.114 [id number] Univers 13:00:00 14:00:00 Visit Brook Mari 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 350.1.13.10 ity of [facility] 4.2.7.2.686 Saúl as MATERNAL [id number] [facility] ical & CHILD [address] [place] [address] 2023-06-04 2023-06-04 Outpatient P BROOK MARI [facility] [id number] Univers 13:00:00 13:00:00 [facility] [place] [facility] 2023-05-30 2023-05-30 Outpatient R BERTRANDPOLO GARCIASOL [facility] U [facility] [id number] Univers 13:15:00 13:15:00 BERTRANDPOLO GARCIASOL [facility] 2023-05-22 2023-05-22 Telephone [facility] 1.2.840.11 4 [id number] Univers 00:00:00 00:00:00 Rhoda nagy 350.1.13.10 ity [place] [id number] [address] 2023-05-06 2023-05-06 Patient Doctor [facility] 1.2.840.114 [id number] Univers 00:00:00 00:00:00 Secure Msg Unassigned, MICHAEL 350.1.13.10 [place]y of [place] [facility] 4.[place].2.[place] [id number] [place] dical [address] 2023-05-02 2023-05-02 Outpatient R RHODA KRISHNAMURTHY [facility] [id number] Univers 11:45:00 12:06:47 POLO KRISHNAMURTHYSOL ity of [facility] 2023-05-02 2023-05-02 Routine [facility] 1.2.840.114 [id number] Univers 11:45:00 12:06:47 sRhoda 350.1.13.10 it[place] [id number] [address] 2023-04-15 2023-04-15 Telephone Dexter [facility] 1.2.840.114 [id number] Univers 00:00:00 00:00:00 Chelle DEGROOT 350.1.13.10 it [place] [id number] [address] 2023-04-15 2023-04-15 Patient Doctor [facility] 1.2.487.305 [id number] Univers 00:00:00 00:00:00 Secure Msg Unassigned, ZANE 350.1.13.10 [place] [facility] [place] [id number] [address] 2023-04-09 2023-04-09 Telephone [facility] 1.2.840.11 4 [id number] Univers 00:00:00 00:00:00 Rhoda nagy 350.1.13.10 [place] [id number] [facility] [address] 2023-04-09 2023-04-09 Patient Doctor [facility] LAUREN 1.2.350.874 [id number] Univers 00:00:00 00:00:00 Secure Msg Unassigned, ZANE 350.1.13.10 [place] [place] [id number] [facility] [address] 2023-04-05 2023-04-05 Outpatient R HOLGER-CHASE RHODA [facility] U [facility] [id number] Univers 11:30:00 12:02:21 BERTRAND-DUVAL, RHODA ity [facility] 2023-04-05 2023-04-05 Telephone Operator Receptionist Lab, Alfredo - Aristeo [facility] 1.2.840.1 14 [id number] Univers 11:30:00 12:02:21 [facility] 350.1.13 .10 ity of [place] 4.2.7.2.686 Saúl as CHRIS?BLEA [id number] [address] MEDICAL OFFICE BUILDING 2023-04-05 2023-04-05 Outpatient R [facility] [id number] Univers 10:15:00 10:15:00 ity of [facility] 2023-04-05 2023-04-05 Orders Doctor CELINE 1.2.840.114 [id number] Univers 00:00:00 00:00:00 Only Unassigned, JOSÉ MIGUEL 350.1.13.10 ity of [place] [facility] 4.2.7.2.686 [place] as [id number] [facility] [address] Branch 2023-04-04 2023-04-04 Outpatient R BERTRAND-CHASE RHODA [facility] U [facility] [id number] Univers 13:15:00 13:36:58 BERTRAND-CHASE RHODA ity of [facility] 2023-04-04 2023-04-04 Routine Bertrand-Felisa [facility] 1.2.840.114 [id number] Univers 13:15:00 13:36:58 s, Rhoda DEGROOT 350.1.13.10 ity of [place] [id number] [address] 2023-04-04 2023-04-04 Case [facility] 1.2.840.114 10 [id number] Univers 00:00:00 00:00:00 Management s, Rhoda [place] 350.1.13.10 ity of [facility] [place] [id number] [facility] 134 [facility] 2023-04-04 2023-04-04 Telephone [facility] 1.2.840.11 4 [id number] Univers 00:00:00 00:00:00 s, Rhoda ZANE 350.1.13.10 [place] [id number] [address] 2023-04-02 2023-04-02 Telephone Operator Receptionist Lab, Alfredo - Aristeo [facility] 1.2.840.1 14 [id number] Univers 08:30:00 08:45:00 [facility] 350.1.13 .10 it[facility] 4.2.7.2.686 [place] as CHRIS?BLEA [id number] [address] MEDICAL OFFICE BUILDING 2023-04-02 2023-04-02 Outpatient R BERTRAND-DUVAL, RHODA [facility] U [facility] [id number] Univers 08:30:00 08:30:00 BERTRAND-DUVAL, RHODA ity of [facility] 2023-03-29 2023-03-29 Outpatient R [facility] [id number] Univers 16:00:00 16:00:00 ity of [facility] 2023-03-26 2023-03-26 Telephone [facility] 1.2.840.11 4 [id number] Univers 00:00:00 00:00:00 s, Rhoda ZANE 350.1.13.10 [place] [id number] [address] 2023-03-08 2023-03-08 Telephone [facility] 1.2.840.11 4 [id number] Univers 00:00:00 00:00:00 sRhoda 350.1.13.10 [place] [id number] [address] 2023-03-08 2023-03-08 Patient Doctor [facility] 1.2.772.176 [id number] Univers 00:00:00 00:00:00 Secure Msg Unassigned, ZANE 350.1.13.10 [place] [place] [id number] [address] 2023-03-07 2023-03-07 Outpatient R RHODA KRISHNAMURTHY [facility] [id number] Univers 15:00:00 15:51:03 [facility] 2023-03-07 2023-03-07 Initial [facility] 1.2.840.114 [id number] Univers 15:00:00 15:51:03 Rhoda nagy 350.1.13.10 ity of Visit WOMEN'S 4.2.7.2.686 [facility] s [facility] [id number] [address] 2023-03-07 2023-03-07 Orders Doctor CELINE 1.2.840.114 [id number] Univers 00:00:00 00:00:00 Only Unassigned, JOSÉ MIGUEL 350.1.13.10 ity of [place] [facility] 4.2.7.2.686 [place] [id number] [place] [address] Branch 2023-02-25 2023-02-25 Outpatient R [facility] [id number] Univers 09:45:00 09:45:00 ity of [facility] 2023-02-15 2023-02-15 Outpatient R RHODA KRISHNAMURTHY [facility] U [facility] [id number] Univers 09:00:00 09:00:00 RHODA KRISHNAMURTHY ity [facility] 2023-02-14 2023-02-14 Outpatient R [facility] [id number] Univers 08:00:00 08:00:00 ity of [facility] 2023-02-14 2023-02-14 Telephone Beck, UNIVERSIT 1.2.840.114 [id number] Univers 00:00:00 00:00:00 Mery Y HEALTH 350.1.13.10 i ty of CL[place] [id number] [facility] [address] 2023-02-13 2023-02-13 Emergency X [facility]SDR[facility] [facility] ERT [id number] Univers 13:50:00 20:24:00 ESDRAS MC ity [facility] 2023-02-13 2023-02-13 Emergency Dalmedo, TRAUMA 1.2.840.114 [id number] Univers 13:50:00 20:24:00 [facility] 350.1.13.10 [place] [id number] [facility] [address] Branch 2023-02-13 2023-02-13 Emergency X [facility] ERT [id number] Univers 13:01:00 13:14:00 ity [facility] 2023-02-12 2023-02-12 Outpatient P [facility] [id number] Univers 08:45:00 08:45:00 ity [facility] 2023-02-12 2023-02-12 Telephone Masoud, UNIVERSIT 1.2.840.114 1 [id number] Univers 00:00:00 00:00:00 [place] [facility] 350.1.13.10 i ty [place] [id number] [facility] 104 [address] 2023-02-12 2023-02-12 Telephone Leightonb, UNIVERSIT 1.2.840.114 1 [id number] Univers 00:00:00 00:00:00 [place] Y HEALTH 350.1.13.10 i ty [place] [id number] [facility] 113 [address] 2023-02-12 2023-02-12 Telephone Chalvalerieb, UNIVERSIT 1.2.840.114 1 [id number] Univers 00:00:00 00:00:00 [place] Y HEALTH 350.1.13.10 i ty [place] [id number] [facility] [address] 2023-02-11 2023-02-11 Telephone Operator Receptionist [facility] UNIVERSIT 1.2.840.114 1 [id number] Univers 13:45:00 14:00:00 Visit Sonia Poon [facility] 350.1.13.10 it[place] of [place] [id number] [facility] [address] 2023-02-11 2023-02-11 Outpatient R MARYLOU [facility] [id number] Univers 10:15:00 11:12:25 SONIA [facility] 2023-02-11 2023-02-11 Routine Trimester, [facility] Res-1st UNIVERSIT 1.2.840.114 [id number] Univers 10:15:00 11:12:25 Irene Poone [facility] 350.1.13.10 ity of Visit CL[place] [id number] [facility] [address] 2023-02-11 2023-02-11 Patient Chaljub, UNIVERSIT 1.2.840.114 [id number] Univers 00:00:00 00:00:00 Secure Msg [place] Partida [facility] 350.1.13.10 ity of [place] [id number] [facility] [address] 2023-02-08 2023-02-08 Emergency X FADUMO, [facility] ERT [id number] Univers 02:15:00 04:47:00 DAISHA ity [facility] 2023-02-08 2023-02-08 Emergency Fadumo, TRAUMA 1.2.859.075 [id number] Univers 02:15:00 04:47:00 [facility] 350.1.13.10 [place] [id number] [facility] 014 [address] 2023-01-24 2023-01-24 Outpatient R RHODA KRISHNAMURTHY [facility] U TMB [id number] Univers 15:00:00 15:00:00 [facility] 2023-01-15 Outpatient R CATHIE [facility] [id number] Univers 09:45:00 09:45:00 WILIAM [facility] 2023-01-11 2023-01-11 Outpatient R BERTRANDPOLO GARCIASOL [facility] U TMB [id number] Univers 10:00:00 10:00:00 RHODA KRISHNAMURTHY [facility] 2022-09-21 2022-09-21 Outpatient R ODILON KENIA [facility] B [id number] Univers 13:00:00 13:00:00 EDWARDANALISA HERNÁNDEZAMAYA [facility] 2022-06-29 2022-06-29 Outpatient R DARYNELSY KENIA [facility] B [id number] Univers 14:15:00 15:02:15 ODILONANALISAAMAYA [facility] 2022-06-29 2022-06-29 [facility] 1.2.840.114 [id number] Univers 14:15:00 15:02:15 Kenia DEGROOT 350.1.13.10 i ty of Visit WOMEN'S 4.2.7.2.686 [facility] [id number] [facility] ER [address] 2022-05-18 2022-05-18 Emergency Jose [facility] 1.2.840.114 [id number] Univers 09:18:00 09:56:00 Mona RODRIGUEZ 350.1.13.10 ity [facility] 4.2.7.2.686 [facility] [id number] [facility] 084 [address] 2022-05-18 2022-05-18 Emergency X JOSE [facility] ERT [id number] Univers 09:18:00 09:56:00 MONA [facility] 2022-02-12 2022-02-12 Outpatient R SHARMAINE [facility] [id number] Univers 13:15:00 13:15:00 TRACE apodaca o f [facility] 2022-01-11 2022-01-11 Office Aster Hernandez [facility] 1.2.840.114 [id number] Univers 09:00:00 09:43:54 Visit ZANE 350.1.13.10 it y of WOMEN'S 4.2.7.2.686 [place] [facility] [id number] [address] 2022-01-11 2022-01-11 Outpatient R ASTER HERNANDEZ [facility] [id number] Univers 09:00:00 09:43:54 ity [facility] 2022-01-11 2022-01-11 Outpatient R ASTER HERNANDEZ [facility] [id number] Univers 09:00:00 09:00:00 ity [facility] 2022-01-10 2022-01-10 Outpatient Deondre SCHMID [facility] [id number] Univers 13:15:00 13:15:00 GENENAFannie apodaca o eligh ann [facility] 2022-01-10 2022-01-10 Outpatient Deondre SCHMID [facility] [id number] Univers 13:15:00 13:15:00 MARISELADOMINICKFannie nashjeniffer o [facility] 2022-01-09 2022-01-09 Office Sharmaine [facility] 1.2.840.114 [id number] Univers 14:00:00 14:30:32 Visit Trace Mendosa 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 350.1.13.10 ity of [facility] 4.2.7.2.686 Saúl as MATERNAL [id number] [facility] ical & CHILD [address] [place] [address] 2022-01-09 2022-01-09 Outpatient Deondre SCHMID [facility] [id number] Univers 14:00:00 14:30:32 MARISELAYARA caojeniffer o leigh ann [facility] 2022-01-09 2022-01-09 [facility] [id number] Univers 14:00:00 14:30:32 MARISELAYARA caojeniffer o [facility] 2022-01-09 2022-01-09 Orders Doctor BERGER 1.2.840.114 [id number] Univers 00:00:00 00:00:00 Only Unassigned, JOSÉ MIGUEL 350.1.13.10 ity of [place] [facility] 4.2.7.2.686 Saúl as [id number] [address] 2021-11-14 2021-11-14 Outpatient R ASTER HERNANDEZ [facility] [id number] [facility] 09:30:00 09:30:00 [facility] Results Test Description Test Time Test Comments Results Result Comments Source POCT URINALYSIS W/O SPECIFIC GRAVITY 2023-06-18 22:20:00 Test Item Value Reference Range Interpretation Comme [...] code = 3257) n/a Negative - Negative [facility] [id number] 16:58:00 Test Item Value Reference Range Interpretation [...] code = 3257) n/a Negative - Negative [facility]/O SPECIFIC [id number] 16:58:00 Test Item Value Reference Range Interpretation [...] code = 3257) n/a Negative - Negative [facility] URINALYSIS W/O SPECIFIC [id number] 18:14:00 Test Item Value Reference Range Interpretation [...] code = 3257) n/a Negative - Negative [facility] URINALYSIS W/O SPECIFIC [id number] 18:14:00 Test Item Value Reference Range Interpretation [...] code = 3257) n/a Negative - Negative [facility] URINALYSIS W/O SPECIFIC [id number] 20:44:00 Test Item Value Reference Range Interpretation [...] code = 3257) N/A Negative - Negative [facility] [id number] 20:43:00 Test Item Value Reference Range Interpretation Comments POCT PREG (test code = 1605) Positive On board controls acceptable with C Yes Line (test code = 3574) POCT PREG LOT # (test code = 3575) POCT PREG TEST DATE (test code = 3576) [facility] Only)2023-02-13 23:59:00 Test Item Value Reference Range Interpretation Comments ABO & RH (test code = 20) O Positive [facility] BETA HCG [id number] 22:07:06 Test Item Value Reference Range Interpretation Comments BETA HCG (test 30877.00 See_Comment [Automated m essage] code = The system Minutizer 5817919846) generated this result transmit charlene reference range : Non- fe male and male patien ts: <5 mIU/mL. The reference range was not used to interpret this result as normal/abnormal . SONALI (test code Gestational Age ? ? = SONALI) ?Range (mIU/mL) 1-10 ?Weeks ?05-70381167-91 Weeks ?42552-00568278-29 Weeks ?6772-86990129-97 Weeks ?2621-119816 Biotin has been reported to cause a negative bias, interpret results relative to patient's use of biotin. [facility] METABOLIC PANEL (NA, K, CL, CO2, GLUCOSE, BUN, CREATININE, CA)2023-02-13 21:29:48 Test Item Value Reference Range Interpretation Comments NA (test code = 136 mmol/L 135-145 7510910871) K (test code = 3.9 mmol/L 3.5-5.0 5669167287) CL (test code = 107 mmol/L 98-108 2868750086) CO2 TOTAL (test code = 23 mmol/L 23-31 7465844268) AGAP (test code = 6 2-16 2270684826) BUN (test code = 9 mg/dL 7-23 9748638405) GLUCOSE (test code = 80 mg/dL 70-110 1408498361) CREATININE (test code = 0.45 mg/dL 0.50-1.04 L 9681426389) CALCIUM (test code = 8.9 mg/dL 8.6-10.6 3071831846) eGFR (test code = 175.9 mL/min/1.73m2 7491020778) SONALI (test code = SONALI) Association of [...] tests). Lab Interpretation Abnormal (test code = 95058-6) [facility] WITH [id number] 21:21:23 Test Item Value Reference Range Interpretation Comments WBC (test code = 7.74 See_Comment [Automated 6981-2) message] The sy stem which generated this result transmitted reference range : 4.30 - 11.10 10*3/?L. The reference range was not used to interpret this result as normal/abnormal . RBC (test code = 4.32 See_Comment [Automated 353-4) message] The sy stem which generated this [...] (test code = 38.4 fL 39.0-49.9 L 42348-2) RDW-CV (test code = 12.5 % 12.0-15.5 788-0) PLT (test code = 451 See_Comment H [Automated 777-3) message] The sy stem which generated this result transmitted reference range : 166 - 358 10*3/ ?L. The reference r dannie was not used to interpret this result as normal/abnormal . MPV (test code = 8.5 fL 9.5-12.9 L 36082-0) IPF % (test code = 1.0 % 1.3-7.7 L Platelet count 5148670532) measured by fluorescence method. NRBC/100 WBC (test 0.0 See_Comment [Automat ed code = 7799392824) message] The system which generated this result transmitted reference range : 0.0 - 10.0 /100 WBCs. The refer ence range was not u sed to interpret th is result as normal/abnormal . NRBC x10^3 (test code See_Comment [Auto mated = 4511960113) message] The s ystem which generated this result transmitted reference range : 10*3/?L. The reference range was not used to interpret this result as normal/abnormal . GRAN MAT (NEUT) % 51.3 % (test code = 770-8) IMM GRAN % (test code 0.40 % = 5973673467) LYMPH % (test code = 41.7 % 736-9) MONO % (test code = 4.9 % 5905-5) EOS % (test code = 1.3 % 713-8) BASO % (test code = 0.4 % 706-2) GRAN MAT x10^3(ANC) 3.97 10*3/uL 1.88-7.09 (test code = 0298042025) IMM GRAN x10^3 (test 0.03 10*3/uL 0.00-0.06 code = 3037660026) LYMPH x10^3 (test code 3.23 10*3/uL 1.32-3.29 = 731-0) MONO x10^3 (test code 0.38 10*3/uL 0.33-0.92 = 742-7) EOS x10^3 (test code = 0.10 10*3/uL 0.03-0.39 711-2) BASO x10^3 (test code 0.03 10*3/uL 0.01-0.07 = 704-7) Lab Interpretation Abnormal (test code = 91559-9) [facility] - ONCE [id number] 21:14:00 Test Item Value Reference Range Interpretation Comments ABO & RH (test code = 20) O POSITIVE IAT (test code = 1185) Negative [facility] [id number] 20:09:00 Test Item Value Reference Range Interpretation Comments POCT PREG (test code = Negative Not r ecorded per 1605) staff On board controls Yes acceptable with C Line (test code = 3574) POCT PREG LOT # (test code = 3575) POCT PREG TEST DATE (test code = 3576) [facility] [id number] 14:24:00 Test Item Value Reference Range Interpretation Comments POCT PREG (test code = 1605) negative On board controls acceptable with present C Line (test code = 3574) POCT PREG LOT # (test code = 3575) [id number] POCT PREG TEST DATE (test 09-26-2023 code = 3576) Lab Interpretation (test code = Normal 77653-7) [facility] Notes Date/Time Note Provider Source 2023-04-15 10:06:36 2135-50-11M14:06:36Formatting of Chelle gary RN [facility] this note might be different from the original.Petros results received via fax.Panorama- low riskHorizon- negative for 14 out of 14 diseases Spoke with patient, name and verified. Patient informed of results excluding gender. Results placed in an envelope and left at the front end alignment specialist for patient machine pecan picker. Results signed, will scan and upload a copy to [facility]. Chelle Renteria RN 04/15/2023 10:07 AM 94486-9Vvbgrdvsk encounter WncsVP7017-34-86R98:07:11Telephon e encounter NoteTXT1.2.840.069885.1.13.104.2. 7.2.897687|[id number] for patient laxa08371-4TifoMK951855240Lhtzssl Stahl RN[address]TXTX[address] 470CEUEHWOEJNHHJYDGYAEWRU5894-51- 18T10:07:111.2.840.472095.1.72.3. 15|1.2.840.701997.1.13.104.2.7.2. 727879_[id number] 2023-04-09 17:01:18 9420-11-91I33:01:18Formatting of Chelle gary RN [facility] this note might be different from the original.Attempted to contact patient by phone, no answer, message left on voicemail to call back. Chelle Renteria RN 04/09/2023 5:01 PM 51277-2Dkzfqdbya encounter HfigWX5336-72-03G27:01:57Telephon e encounter NoteTXT1.2.840.612221.1.13.104.2. 7.2.617724|[id number] for patient jfyd35939-6JzvxXV140555512Ebwvyoy Stahl RNUT[address]TXTX[address] 908EMXMDSSAYAHXLTHFSQPSNS9305-24- 12T17:01:571.2.840.292169.1.72.3. 15|1.2.840.469933.1.13.104.2.7.2. 727879_[id number] 2023-04-09 10:31:35 0616-08-30W45:31:35Formatting [facility] this note might be different from the original.Would recommend using Miralex for next few days to help with constipation to help prevent pain. 40749-2Ayslepoki encounter SznmDP2454-10-79U75:32:15Telephon e encounter NoteTXT1.2.840.749233.1.13.104.2. 7.2.132732|[id number] for patient gjkc89008-1KbrhIDJFOFVCCR[address]GalvestonTXTX[address] 565ECHQPISQSSPPDKSCXQBTAR3401-97- 12T10:32:151.2.840.721199.1.72.3. 15|1.2.840.257980.1.13.104.2.7.2. 727879_[id number] 2023-04-09 10:15:23 2020-01-31I43:15:23[facility] this [facility] might be different from the original.Patient called with c/o mild stomach cramping, mid abdomen, onset since this morning. Patient states that she has had has this before, but it goes away once she passes gas. Also, states that its not like period cramps. Last bowel movement yesterday and it was "hard." Denies vaginal bleeding or loss of fluid. No other symptoms. Patient sent otc med list to try safe medications for constipation. Informed patient I would notify provider for any other recommendations. Chelle Renteria RN 04/09/2023 10:21 AM 31210-1Yuireuqmm encounter StskTA4890-51-60S05:29:10Telephon e encounter NoteTXT1.2.840.959288.1.13.104.2. 7.2.542752|[id number] for patient lxnw39485-7DwwtKWSYIVDPLJ[address]TXTX[address] 862IDKNXXYWVELULURRUJIBHI2183-44- 12T10:29:101.2.840.824744.1.72.3. 15|1.2.840.888482.1.13.104.2.7.2. 727879_[id number] 2023-04-09 10:11:12 7541-44-69F86:11:12Formatting of Keli Downey [facility] this note might be different from the original.Patient called need to speak to nurse, experiencing cramps 13 weeks pg. Please advise 35400-1Addshxfll encounter XjvfLX2202-74-78Z37:13:13Telephon e encounter NoteTXT1.2.840.470844.1.13.104.2. 7.2.288480|[id number] for patient yfgs28752-7JdlxBH249987974Jxgi A [address]TXTX[address] 441EAZXOUEBDIGTZJXRCESHHY8125-86- 12T10:13:131.2.840.707678.1.72.3. 15|1.2.840.146696.1.13.104.2.7.2. 727879_[id number] 2023-04-05 11:30:00 2759-37-30Z72:30:00Formatting of Andres Foster ctleon [facility] this note is different from the original.Images from the original note were not included.Venipuncture collection performed by clean technique on the right anticubitus. Total of 1 attempts were made. Slight pressure and a bandage/dressing were applied to the site(s). The patient experienced no complications. The following specimens were processed according to instructions and sent to [facility] laboratories per lab order on 04/05/2023 :Petros collected and shipped. LT BLUE SST 2 RED LAV 1 PPT DK GREEN (LiHep) DK GREEN (SodH) SANZ DK BLUE (K2) DK BLUE (S) ACD Blood Culture NIPT/NTD 43544-6Wkyck OthvAH7890-61-31X66:08:05Nurse NoteTXT1.2.840.965733.1.13.104.2. 7.2.951000|[id number] for patient clqv80213-4Ycgou WmzbHW981420799Ympbaau N Butler[address]TXTX[address] 941ETJXDWGERLDGEWTFIJXLMO3165-49- 08T12:08:051.2.840.411849.1.72.3. 15|1.2.840.290751.1.13.104.2.7.2. 727879_[id number] 2023-04-04 15:45:43 9315-21-14S37:45:43Formatting of Chelle gary RN [facility] this note might be different from the original.Spoke with patient, confirmed patient 13 weeks and 0 days today. No other questions or concerns expressed.Chelle Renteria RN 04/04/2023 3:46 PM 31602-1Vdmabsnxd encounter GzznQB3423-32-04H43:46:13Telephon e encounter NoteTXT1.2.840.204459.1.13.104.2. 7.2.205153|[id number] for patient affu55060-0IzgrDA961527392Vuhuffz Stahl RN[address]TXTX[address] 349OWKMIPBRHXLMNUJGAZTXMK3195-71- 07T15:46:131.2.840.121276.1.72.3. 15|1.2.840.234457.1.13.104.2.7.2. 727879_[id number] 2023-04-04 15:14:13 5633-12-92L03:14:13Formatting of Susan johnson [facility] this note might be different from the original.Pt [place] [address]-0Gbxsvnhmu encounter TwbsQQ6473-26-07A30:14:54Telephon e encounter NoteTXT1.2.840.958315.1.13.104.2. 7.2.023449|[id number] for patient azys20389-6KslrFH033230941Yuzit Matthew[address] XldgCsnqxewjmWimbjhmicLLKW4439881 789UZRXYRSCGGSBVUCKIHFSFP0240-06- 07T15:14:541.2.840.657645.1.72.3. 15|1.2.840.913050.1.13.104.2.7.2. 727879_[id number] 2023-04-04 13:15:00 3562-23-30L67:15:00Formatting of [facility] this note is different from the original.ROUTINE VISIT04/04/2023 1:30 PMSUBJECTIVEMarie Engel is a 22 year old at 13w0d who presents for routine visit. She has no complaints today; denies contractions, loss of fluid, vaginal bleeding, and signs or symptoms of pre-eclampsia. Pt had protected sex with her untreated partner. OBJECTIVEBP 113/70 (BP Location: Right arm, Patient Position: Sitting, BP CUFF SIZE: Adult Medium) | Pulse 70 | Temp 36.7 ?C (98.1 ?F) (Oral) | Resp 16 | Ht 5' 3" (1.6 m) | Wt 128 lb 9.6 oz (58.3 kg) | LMP 01/03/2023 | BMI 22.78 kg/m? Physical Exam:Gen: A&Ox3, NADCV: RRR, Pulm: No labored breathingAbd: Soft, gravid, NTTP, ND, no rebound or guardingExt: No calf tendernessGU: Closed/longASSESSMENT: Marie Engel is a 22 year old at 13w0d who presents for routine visit. Patient Active Problem List Diagnosis Low TSH level ASB (asymptomatic bacteriuria) High-risk in first trimester Rubella non-immune status, antepartum PLAN1. 13 weeks gestation of - POCT URINALYSIS W/O SPECIFIC GRAVITY2. High-risk in first trimester--Reviewed lab results--cfdna testing + carrier testing ordered--reviewed with pt likely false positive Hep C testing3. Trichomonas vaginalis infection--Rx sent for partner since he was not treated--Test of cure collected- metroNIDAZOLE (FLAGYL) 500 mg tablet; Take 1 tablet by mouth every 12 (twelve) hours. Dispense: 10 tablet; Refill: 04. ASB (asymptomatic bacteriuria)--Pt will machine pecan picker abx today5. Rubella non-immune status, antepartum--Plan MMR vaccine pp--Questions answeredMarisol MD Raghu 33129-1Mkswypfw cbcaDI9394-79-74Z52:33:30Progress noteTXT1.2.840.630137.1.13.104.2. 7.2.410747|[id number] for patient pyks53509-3TckfAIWKNXENLT[address] AdpgNtvlnldtlThuwvdfytZMAK9232074 604ZBVTXVYDQHBALOUWYKISAH8198-78- 07T13:33:301.2.840.252974.1.72.3. 15|1.2.840.700224.1.13.104.2.7.2. 727879_[id number] 2023-04-04 13:15:00 8850-08-12K63:15:00 Addended by: [facility] AMANDA MARQUEZ on: 04/04/2023 02:02 PM Modules accepted: Orders 74718-0Thaiolsh GhnyjbrhXM3263-40-82T86:02:53Adde ndum DocumentTXT1.2.840.898745.1.13.10 4.2.7.2.900370|[id number] ble for patient kcqn61572-4WrtkZAQXFBJXEU[address] WrbmAyujldpmgWzqdifhmiTRDU1849240 936TUQCNQOAGFLJQUVGNAQQDX2908-60- 07T14:02:531.2.840.305610.1.72.3. 15|1.2.840.855108.1.13.104.2.7.2. 727879_[id number] 2023-04-02 08:30:00 8821-99-52Y92:30:00Formatting of [facility] this note is different from the original.Images from the original note were not included.Venipuncture collection performed by clean technique on the right anticubitus. Total of 1 attempts were made. Slight pressure and a bandage/dressing were applied to the site(s). The patient experienced no complications. The following specimens were processed according to instructions and sent to [facility] laboratories per lab order on 04/02/2023: LT BLUE SST 3 RED 1 LAV 3 PPT DK GREEN (LiHep) DK GREEN (SodH) SANZ DK BLUE (K2) DK BLUE (S) ACD Blood Culture NIPT/NTD Patient has been identified by and was provided with cup, antiseptic towelette, and clean catch instructions. 2 urine specimen(s) sent. Unpreserved 1 Urine Culture 1 Aptima tube Other urine 74378-6Elzlg EwrsKQ6336-80-32E35:12:50Nurse NoteTXT1.2.840.863579.1.13.104.2. 7.2.225535|[id number] for patient jmss30830-4Mfusl Note[address]TXTX[address] 793UGRLZCYIOLAFCETLJKUTRO8253-93- 05T09:12:501.2.840.978813.1.72.3. 15|1.2.840.893775.1.13.104.2.7.2. 727879_[id number] 2023-03-29 08:47:01 3522-74-74J61:47:01Formatting [facility] this note might be different from the original.Unable to leave voice mail due to inbox not being set up. 27932-6Hkttzrsss encounter IorsOC0687-78-62N17:47:18Telephon e encounter NoteTXT1.2.840.692122.1.13.104.2. 7.2.762147|[id number] for patient mhpg71775-2QxmwBVBGENWDYI - Iqomci128 [facility] CenterTXTX775[address]77 475BBCQZMANKAACOZFRZNITKD3539-25- 01T08:47:181.2.840.726775.1.72.3. 15|1.2.840.258337.1.13.104.2.7.2. 727879_1889062679 2023-03-27 16:53:04 5788-51-67Z35:53:04Formatting [facility] this note might be different from the original.Unable to leave voice mail due to inbox not being set up. 99083-6Wnnhuosxl encounter YcyxSY2037-96-29T71:53:19Telephon e encounter NoteTXT1.2.840.528109.1.13.104.2. 7.2.272188|[id number] for patient kzga40262-4SohvXLWCAAHHUX[address] 830OUVORFEWVIOGPKFMASNXFI3294-03- 30T16:53:191.2.840.625660.1.72.3. 15|1.2.840.165718.1.13.104.2.7.2. [id number] 2023-03-26 14:22:25 2947-86-55L68:22:25Formatting of Amanda marroquin [facility] this note might be different from the original.Attempted to contact pt back x 1. No voicemail available to leave message. 66797-1Orsflyfpo encounter ZutaBK1836-97-45O48:25:35Telephon e encounter NoteTXT1.2.840.676530.1.13.104.2. 7.2.556541|[id number] for patient [id number] E Burch [id number] 319EUWDOSTVORRANNPJVIHZSV7599-57- 29T14:25:351.2.840.677932.1.72.3. 15|1.2.840.253082.1.13.104.2.7.2. [id number] 2023-03-26 14:14:39 8616-26-43E45:14:39Formatting of Susan johnson [facility] this note might be different from the original.Pt calling says she need usg entered diff due to her wanting to get it done sooner she was saying there an issue w order is she want it sooner that clinic need to call usg dept 72428-4Jckuxiktg encounter CnzyJI7388-11-35C71:16:19Telephon e encounter NoteTXT1.2.840.683731.1.13.104.2. 7.2.891406|[id number] for patient [id number] [address] 312XPHZISTAZGQONQXKLMUPKK0410-51- 29T14:16:191.2.840.258965.1.72.3. 15|1.2.840.521434.1.13.104.2.7.2. [id number] 2023-03-08 16:35:48 4042-32-40P98:35:48Formatting of [facility] this note might be different from the original.Images from the original note were not included.Rx electronically sent. 47661-3Uaguqmamu encounter CufkTG4609-44-55N08:42:28Telephon e encounter NoteTXT1.2.840.198443.1.13.104.2. 7.2.178584|[id number] for patient fsnh29701-7EeqrDVCVLHCWOZ[address]TX[place] 874PMSBWKHRHMDKZWQNPTFUSZ1543-30- 11T16:42:281.2.840.146615.1.72.3. 15|1.2.840.685236.1.13.104.2.7.2. [id number] 2023-02-14 07:28:04 4984-83-81O60:28:04Formatting [facility] this note might be different from the original.Called pt to schedule appt requested by Dr. Donald, no answer could not leave a message 99403-7Nntarjmyw encounter KrzfHD0126-12-64A18:51:20Telephon e encounter NoteTXT1.2.840.319220.1.13.104.2. 7.2.688563|[id number] for patient [id number] Shilpa Dread[address]TX[address] 989ZQOCRAGOBETOJGGJHNDCUL8661-98- 20T07:51:201.2.840.122525.1.72.3. 15|1.2.840.201144.1.13.104.2.7.2. [id number] 2023-02-14 07:25:54 2872-92-48I64:25:54Formatting of [facility] this note might be different from the original.----- Message from Eugenia Donald MD sent at 02/13/2023 6:02 PM CDT -----Can we schedule the above patient in beta clinic on 02/25 or later for repeat ultrasound for viability? Can cancel any other appointment until that time as she came into the ED and just needs this follow up visit now. Thanks,Eugenia Donald MDObstetrics and Gynecology, PGY-4 24281-5Ldrqetyrt encounter OdxsZW8207-97-70R63:25:54Telephon e encounter NoteTXT1.2.840.219512.1.13.104.2. 7.2.469533|[id number] for patient [address]TX[address] 118KGAXELESMAJQNGHQHBGFES9744-96- 20T07:25:541.2.840.373852.1.72.3. 15|1.2.840.436363.1.13.104.2.7.2. 727879_[id number] 2023-02-13 20:19:12 2814-95-33P87:19:12Formatting of Mere yin [facility] this note might be different from RN the original.RN and pt reviewed dc instructions. Pt verbalized understanding. Pt advised to attend follow up appointments as scheduled. Pt advised to follow new med regimen. Pt denied any remaining belongings in the ED. PT ambulated to lobby with steady gait. NAD noted upon departure. 53903-0Gnzbgptqk department GsoaTI0999-83-32Y33:23:53[facility] NoteTXT1.2.840.552246.1.13.104.2. 7.2.888803|[id number] for patient [id number] Villarreal [address] 895WKFENOZDOKAUTQSQQOMKSM4734-03- 19T20:23:531.2.840.302061.1.72.3. 15|1.2.840.204011.1.13.104.2.7.2. [id number] 2023-02-13 19:35:39 5702-25-31D98:35:39Formatting of [facility] this note might be different from the original.[place] [address]-0Bkrbatqpx department BgshWW9384-85-71Q24:35:52[facility] NoteTXT1.2.840.167898.1.13.104.2. 7.2.116687|[id number] for patient [address] 646DWCKCWBHBKEJZHITBQFPDD6873-16- 19T19:35:521.2.840.878287.1.72.3. 15|1.2.840.712132.1.13.104.2.7.2. 727879_[id number] 2023-02-13 18:57:54 9443-49-04R65:57:54Formatting of Bella bentley [facility] this note might be different from RN the original.Report given Rina Hammonds. [address]1480-8Ykb[address] [place] [address] GmreHL2097-08-76G04:58:24[facility] department NoteTXT1.2.840.726569.1.13.104.2. 7.2.085216|[id number] for patient jonv266996262Cmtugpc L Radzieski [address] 428AGHBXLYPSBXDULHQFLCEEC3763-07- 19T18:58:241.2.840.593017.1.72.3. 15|1.2.840.902150.1.13.104.2.7.2. 727879_[id number] 2023-02-13 18:10:00 7960-79-24E12:10:00Formatting of [facility] this note might be different from the original.Per OB they are clear on their end. Pt to provide urine sample. Updated on POC. Denies current needs. Call light in reach. Sitting up in bed speaking to visitor. 92711-2Pwsrqutbq department VpzlVH3296-97-75T78:48:15[facility] department NoteTXT1.2.840.370556.1.13.104.2. 7.2.010548|[id number] for patient care[address] 255ODWIUBJEOEFXPKJTNHAQHT1247-93- 19T18:48:151.2.840.007036.1.72.3. 15|1.2.840.923676.1.13.104.2.7.2. 727879_[id number] 2023-02-13 17:55:00 7513-73-45P62:55:00Formatting of [facility] this note might be different from the original.Pt ambulatory from triage for possible ectopic .. Per triage nurse pt pending urine and OB consult who is currently bedside. Pt AAO, respirations even and unlabored. [place] [address]-0Rnfxfsqhg department VnlxYG4208-94-91V33:47:15[facility] NoteTXT1.2.840.552965.1.13.104.2. 7.2.381842|[id number] for patient [address] PsveAcxxtdfifOkaqqbgksYPKV4308935 052INZHHDMEXUQTIDXYOMQPWE2809-76- 19T18:47:151.2.840.955648.1.72.3. 15|1.2.840.414118.1.13.104.2.7.2. [id number] 2023-02-13 13:48:11 0389-24-94Y96:48:11Formatting of Niles prado RN [facility] this note might be different from the original.Marie Engel is a 22 year old femalerePresents to the ed as a call back form OB for R/o ectopic . Pt had + HCG yesterday and is 5 weeks since last menses. Reports mild RLQ pain that started 1 hour ago. Pt appears to be in no active distress, respirations even and unlabored, vss. Pt awaits in lobby for provider eval due to ED saturation. 23423-2Kinivkvpl department Triage lppkCZ2844-68-93R16:50:42Emergen y department Triage noteTXT1.2.840.723841.1.13.104.2. 7.2.651804|[id number] for patient zpjw804948496Knrylwu Herndon RN[address] AwafXhdlgbhjuAekgsqrseMKTH1573295 641MNGDWFAHGJQTCPQTRMMAYJ3188-80- 19T13:50:421.2.840.561029.1.72.3. 15|1.2.840.317410.1.13.104.2.7.2. [id number] 2023-02-13 13:38:00 3074-54-06U36:38:00Formatting of [facility] this note is different from the original.[facility] Emergency Department NotePatient Name: Marie Reyes of : 2000 22 year old femaleTreatment Room: [facility] Number: [id number] Care Physician: Pawel Freeman Escorted by: Family [5]Mode of Arrival: Personal means [1]EMS Treatment Prior to ED Arrival:PUFFER TENDER treatment: None Travel and Exposure Screening:SymptomsDoes patient have any of these symptoms?: (not recorded)Exposure ScreeningHas patient had contact with someone with a communicable disease in the last month?: (not recorded)Diseases exposed to:: (not recorded)Is Patient ?: (not recorded)Exposure Date: (not recorded)Chief Complaint:Chief Complaint Patient presents with Other Ectopic Rule out History of Present Illness:Marie Engel is a 22F with PMH of R ovarian cysts (during 1st ) who presents for lower abdominal pain.Report she found out she was 2 weeks ago, is currently around 5 weeks , had labs drawn at [facility]. Complained of R sided pain and was referred to ED for further eval. She reports the pain started 1-2 hours ago and is a cramping feeling. Has associated nausea, yesterday and 1 episode of vomiting. Reports she has white discharge when she urinates which is similar to the last time she had a UTI. Past Medical History/Immunizations:Past Medical History: Diagnosis Date Anemia resolved Anxiety ongoing, not on medication Asthma ongoing, has rescue inhaler Cancer Depression ongoing, not on medication Screening examination for STD (sexually transmitted disease) Tetanus received in last 5 years: Unknown Allergies:No Known AllergiesPast Social History:Tobacco Use Never smoked or used smokeless tobacco. Vaping Use Some days; Substances: Nicotine; Devices: Disposable Alcohol Use Yes; 3.0 standard drinks of alcohol per week; 3 Cans of beer. Comments: socially Drug Use Never. Sexual Activity Sexually active; Partners: Male; Control/Protection: I.U.D., Condom. Past Surgical History:History reviewed. No pertinent surgical history.Review of Systems: Review of Systems Constitutional: Negative for chills and fever. HENT: Negative. Eyes: Negative. Respiratory: Negative. Breasts: Negative. Cardiovascular: Negative. Gastrointestinal: Positive for abdominal pain, nausea and vomiting. Negative for abdominal distention, anal bleeding, blood in stool, constipation, diarrhea and rectal pain. Genitourinary: Positive for dysuria, urgency and vaginal discharge. Negative for bladder incontinence, hematuria, flank pain, vaginal bleeding, difficulty urinating, vaginal pain, menstrual problem and pelvic pain. Musculoskeletal: Negative. Skin: Negative. Physical Exam: ED Triage Vitals [02/13/23 1347] Weight Actual or estimated Height BP 121/85 Pulse 89 Resp 20 Temp 36.6 ?C (97.9 ?F) Temp source Oral SpO2 98 % Measured on Room air Physical ExamConstitutional: Appearance: Normal appearance. She is normal weight. Cardiovascular: Rate and Rhythm: Regular rhythm. Tachycardia present. Pulses: Normal pulses. Pulmonary: Effort: Pulmonary effort is normal. No respiratory distress. Breath sounds: No wheezing. Abdominal: General: Abdomen is flat. Bowel sounds are normal. There is no distension. Palpations: Abdomen is soft. Tenderness: There is abdominal tenderness. Comments: RLQ tenderness without guarding Skin: General: Skin is warm. Capillary Refill: Capillary refill takes less than 2 seconds. Neurological: Mental Status: She is alert. Radiology:US FIRST TRIMESTER LESS THAN 14 WEEKS Preliminary Result EXAM: US FIRST TRIMESTER LESS THAN 14 WEEKS HISTORY: 22 years -old Female with rule out ectopic . LMP = 01/03/2023. Beta-hC,193 mIU/mL. TECHNIQUE: Survey transabdominal and transvaginal ultrasound imaging of the pelvis was performed including color Doppler evaluation with customer service representative images obtained. M-mode was used to evaluate the heart. COMPARISON: None FINDINGS: Uterus: Size: (transvaginal): 9.8 x 4.7 x 5.8 cm Endometrial thickness: 1.7 cm. An intrauterine gestational sac is present. Mean sac diameter is 1.1 cm. Yolk sac is visualized , measures 0.2 cm. No pole is visualized. Right Adnexa: Ovary: The right ovary measures 4.2 x 3 x 4.5 cm. A corpus luteum is seen in the right ovary. Other: None Left Adnexa: Ovary: The left ovary measures 3.3 x 1.7 x 2.5 cm. The left ovary is unremarkable. Other: None Cul-de-sac: Small amount of free fluid is present, likely physiologic. IMPRESSION 1. Gestational sac with Mean sac diameter of 1.1 cm consistent with gestational age 5 weeks 5 days. No pole is visualized, possibly due to early . 2. A corpus luteum is seen in the right ovary. While still possible, there is no evidence of ectopic in the current study. Preliminary Report Dictated by Resident: Amber Wei Lab Results:Lab Results CBC WITH DIFF - Abnormal Result Value Ref Range WBC 7.74 4.30 - 11.10 10*3/?L RBC 4.32 3.93 - 5.25 10*6/?L HGB 13.3 11.6 - 15.0 g/dL HCT 36.0 35.7 - 45.2 % MCV 83.3 80.6 - 95.5 fL MCH 30.8 25.9 - 32.8 pg MCHC 36.9 (*) 31.6 - 35.1 g/dL RDW-SD 38.4 (*) 39.0 - 49.9 fL RDW-CV 12.5 12.0 - 15.5 % PLT 451 (*) 166 - 358 10*3/?L MPV 8.5 (*) 9.5 - 12.9 fL IPF % 1.0 (*) 1.3 - 7.7 % NRBC/100 WBC 0.0 0.0 - 10.0 /100 WBCs NRBC x10^3 <0.01 10*3/?L GRAN MAT (NEUT) % 51.3 % IMM GRAN % 0.40 % LYMPH % 41.7 % MONO % 4.9 % EOS % 1.3 % BASO % 0.4 % GRAN MAT x10^3(ANC) 3.97 1.88 - 7.09 10*3/uL IMM GRAN x10^3 0.03 0.00 - 0.06 10*3/uL LYMPH x10^3 3.23 1.32 - 3.29 10*3/uL MONO x10^3 0.38 0.33 - 0.92 10*3/uL EOS x10^3 0.10 0.03 - 0.39 10*3/uL BASO x10^3 0.03 0.01 - 0.07 10*3/uL URINALYSIS - Abnormal APPEARANCE Cloudy (*) Clear COLOR Yellow Yellow PH 5.0 4.8 - 8.0 SP GRAVITY 1.019 1.003 - 1.030 GLU U QUAL Normal Normal BLOOD Negative Negative KETONES 80 mg/dL (*) Negative PROTEIN Negative Negative UROBILIN 4.0 mg/dL (*) Normal BILIRUBIN Negative Negative NITRITE Negative Negative LEUK TRISTIN 500/uL (*) Negative RBC/HPF 7 (*) 0 - 3 HPF WBC/HPF 33 (*) 0 - 5 HPF BACTERIA Moderate (*) Negative MUCOUS Moderate (*) Negative LPF SQ EPITH 2 <=2 HPF BASIC METABOLIC PANEL (NA, K, CL, CO2, GLUCOSE, BUN, CREATININE, CA) - Abnormal NA 136 135 - 145 mmol/L K 3.9 3.5 - 5.0 mmol/L CL 107 98 - 108 mmol/L CO2 TOTAL 23 23 - 31 mmol/L AGAP 6 2 - 16 BUN 9 7 - 23 mg/dL GLUCOSE 80 70 - 110 mg/dL CREATININE 0.45 (*) 0.50 - 1.04 mg/dL CALCIUM 8.9 8.6 - 10.6 mg/dL eGFR 175.9 mL/min/1.73m2 TYPE AND SCREEN ABO & RH O POSITIVE IAT Negative TOTAL BETA HCG ASSAY BETA HCG 12,986.00 Non- female and male patients: <5 mIU/mL ABORH CONFIRMATION (LAB ONLY) URINE CULTURE EKG:If EKG completed, see Procedure Note. 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 Orders Placed This Encounter Medications acetaminophen (TYLENOL) tablet 325 mg cefdinir (OMNICEF) capsule 300 mg NaCl 0.9% (NS) IV infusion 1,000 mL cefdinir 300 mg capsule 26-iron kx-wcaqt-drq 29 mg iron- 1 mg-200 mg per capsule First Provider Eval:ED Events Date/Time Event User Comments 02/13/231405 Medical Screening Begins ESDRAS MC MD -- 02/13/231405 First Provider Evaluation ESDARS MC MD -- ED COURSEED Course as of 02/13/231902Feb 13, 20231837 BETA HC,986.00Doubled from last bHCG appropriately [AC] 183 PLT x10^3(!): 451Reactive, likely in setting of [AC] 1808 Pt will need follow up in 11 days at OB clinic. Pending UA for discharge [AC] 1756 Spoke with the OB resident after she evaluated the patient, they do not feel this is an ectopic patient has a yolk sac, they will set up follow-up in the clinic, patient has no pain on exam, we will get urine and discharge the patient [CD] 1750 Contacted OB about pt moving to room 109 [AC] 1732 Discussed case with OB for consult for r/o ectopic [CD] 1729 OB paged for consult [CD] 1728 BETA HC,986.00 [CD] 1621 US FIRST TRIMESTER LESS THAN 14 WEEKSUS notable for gestational sac with Mean sac diameter of 1.1 cm consistent with gestational age 5 weeks 5 days. No pole is visualized, possibly due to early . A corpus luteum is seen in the right ovary. While still possible, thereis no evidence of ectopic in the current study. [AC] ED Course User Index[AC] Anna Brown DO[CD] Esdras Mc MD Diagnosis/Impression as of 02/13/231902 Urinary tract infection without hematuria, site unspecified Abdominal pain affecting Dehydration Procedures: ProceduresMDM:Medical Decision MakingPt with RLQ pain, hx of cysts with previous , recently 5.5 weeks in. Associated with discharge with urination, nausea, vomiting. Will need to rule out ectopic vs UTI as cause of pain. Amount and/or Complexity of Data ReviewedLabs: ordered. Decision-making details documented in ED Course.Radiology: ordered. Decision-making details documented in ED Course.RiskOTC drugs.Prescription drug management. Flowsheet Documentation: Scoring Tools: No data recorded Disposition/Condition:ED Disposition ED Disposition Disch - Home Condition Stable Comment -- Discharge Medications:Patient's Medications START taking these medications CEFDINIR 300 MG CAPSULE Take 1 capsule by mouth every 12 (twelve) hours for 7 days. 26-IRON DH-TRQJD-AFW 29 MG IRON- 1 MG-200 MG PER CAPSULE Take 1 capsule by mouth in the morning for 30 days. CONTINUE taking these medications which have NOT CHANGED NORGESTIMATE-ETHINYL ESTRADIOL 0.25-35 MG-MCG PER TABLET Take 1 tablet by mouth in the morning. ONDANSETRON 4 MG DISINTEGRATING TABLET Take 1 tablet by mouth every 8 (eight) hours as needed for Nausea and Vomiting (N/V). START taking Modified Medications as Prescribed No medications on file STOP taking these medications No medications on file Follow-up:Contact information for follow-up Pawel Rene Specialty: PED-PEDIATRICS Relationship: PCP - GeneralP - Insurance [place] [address] Electronically signed by:Anna Brown DO [facility]-, [place] Team Anna Brown, 02/13/231902 Anna Brown, 02/13/231903 ssociated attestation - Esdras Mc MD - 02/13/2023 7:50 PM CDT AddendumI personally examined and participated in decision-making for this patient with the resident, Dr Brown Please see the resident note for further details.Lab and imaging studies reviewedFindings discussed with patientDiagnosis1. UTI, Abd pain in , dehydration, early gestational sac vs early ectioicPlan1. Hydration, abx, close OB follow upNote reviewedDr. Esdras Mc MD, RUUNB68936-7Uxprnlnrg Emergency department ElghXS3102490Mpieyzp, Charles1.2.840.124902.1.13.104.2. 7.2.217983LfiyyucRoqkrcyNK3628-17 -19T19:50:59Physician Emergency department NoteTXT1.2.840.747278.1.13.104.2. 7.2.982672|[id number] for patient [address]UT[address] EjegNvyrykondZpqlgdpyrCCFC0328389 094CRYWMUJSRFVGOBQFOKVZLW4047-23- 19T19:50:591.2.840.645336.1.72.3. 15|1.2.840.473457.1.13.104.2.7.2. [id number] 2023-02-13 13:38:00 3507-57-41P80:38:00Formatting of [facility] this note might be different from the original.Medical Decision MakingSee ED course for MDMProblems Addressed:Abdominal pain affecting : acute illness or injuryDehydration: acute illness or injuryUrinary tract infection without hematuria, site unspecified: acute illness or injuryAmount and/or Complexity of Data ReviewedExternal Data Reviewed: labs and notes.Labs: ordered. Decision-making details documented in ED Course.Radiology: ordered.Discussion of management or test interpretation with external provider(s): Discussed case with OB for consultationDiscussed case with OB for follow-up and recommendationsRiskOTC drugs.Prescription drug management. Esdras Mc MD02/13/231952 52019-2Lzatvklqs Emergency department TawoMV4263-81-74V58:53:26Physicia n Emergency department NoteTXT1.2.840.200702.1.13.104.2. 7.2.499382|[id number] for patient care[address]TXTX[address] 618WBBTBNEGNHATQGQFEZGPBG9841-09- 19T19:53:261.2.840.461850.1.72.3. 15|1.2.840.681149.1.13.104.2.7.2. [id number] 2023-02-13 10:45:51 2361-39-70O38:45:51Formatting of Eileen elam RN [facility] this note might be different from the original.Multiple attempts have been made to contact pt regarding important lab results by clinic staff. Will send pt certified letter. RN able to reach pt's mother. Mother informed to have pt present to the ED FRANCISCO. RN stressed importance of having pt present to ED FRANCISCO. Pt's mother v/u and stated she will inform pt. Will still send pt certified letter. Eileen Wong RN 02/13/2023 10:54 AM 03910-8Bvrqvakav encounter MkmgSI5165-93-09G52:56:02Telephon e encounter NoteTXT1.2.840.758565.1.13.104.2. 7.2.457614|[id number] for patient bell260524889Pstnqmv Fonseca RNUT[address]TXTX[address] 400CNRZYBMBSMWDQBIPRPNUJN2674-17- 19T10:56:021.2.840.034069.1.72.3. 15|1.2.840.364147.1.13.104.2.7.2. [id number] 2023-02-12 14:42:51 6275-74-87D61:42:51Formatting of [facility] this note might be different from the original.You missed your scheduled appointment for an ultrasound today to evaluate the location of your . You must go to the emergency room immediately to have an ultrasound performed and lab work to determine the location of your . If your is in the wrong place and your tube ruptures it is a medica emergency. You could have significant bleeding.we need to determine the location of your pregnancy 47310-4Mpihwlymc encounter GaaxBA1997-69-95B10:47:13Telephon e encounter NoteTXT1.2.840.218169.1.13.104.2. 7.2.301225|[id number] for patient [address] RbefWtfuvludnFexwuhlulTKYX2733987 392QBQAJLQPNIHPAPYTBPFUYY0320-39- 18T14:47:131.2.840.443765.1.72.3. 15|1.2.840.395870.1.13.104.2.7.2. [id number]
[2023-06-26 20:08] LABS: Absolute Lymphocytes (CBC) 1.6 K/uL (0.7-4.9); Hematocrit 37.9 % (36.0-45.0); MCV 89.5 fL (80-100); MPV 7.1 fL (7.6-11.3); Platelets 395 thou/uL (152-406); RBC Red Blood Cell Count 4.23 M/uL (3.86-4.86)
[2023-06-26 20:09] LABS: Specific Gravity 1.021 (1.005-1.030)
[2023-06-26 20:18] LABS: Specific Gravity 1.022 (1.005-1.030); Urine Bacteria <20 /HPF (<20); Urine Bilirubin NEGATIVE (Negative); Urine Blood Negative (Negative); Urine Clarity Extremely Turbid (Clear); Urine Color Yellow (Yellow); Urine Glucose NEGATIVE (Negative); Urine Mucus Slight /HPF (None Seen); Urine Protein TRACE (Negative); Urine Urobilinogen 1+ (Normal); Urine pH 6.5 (5.0-7.0)
--- NOTE | 2023-06-26 20:46 | RAD REPORT ---
EXAM DESCRIPTION: US - OB Limited - 06/26/2023 8:16 pm CLINICAL HISTORY: ABD CRAMPING, COMPARISON: OB Limited dated 06/01/2023 TECHNIQUE: Sonographic grayscale and color flow images of a second -trimester were obtaine d through approach. FINDINGS: A single live intrauterine is identified. Presentation are cephalic. Placenta is formed posteriorly. Internal cervical os is closed. Cervical canal measures 3.4 cm in length. heart rate: 138 BPM. Amniotic fluid index: 14.07 cm, within normal range Femur length: 4.48 cm, corresponding to gestational age 24 weeks 6 days. The left maternal ovary was visualized and is unremarkable. No free fluid. IMPRESSION: 1. Single live intrauterine in cephalic presentation. Expected due date 2023 by ultrasound. 2. Normal amniotic fluid index.
[2023-06-26 20:51] LABS: Potassium 3.4 mEq/L (3.5-5.1)
--- NOTE | 2023-06-26 21:17 | RAD REPORT ---
EXAM DESCRIPTION: US - Renal Ultrasound-Complete - 06/26/2023 8:16 pm CLINICAL HISTORY: PAIN COMPARISON: Abdomen Pelvis W Contrast dated 02/27/2021 TECHNIQUE: Sonographic grayscale and color flow images of the kidneys and bladder were obtained. FINDINGS: Both kidneys are normal in size, shape, and echotexture. The right kidney measures 10.5 cm in length. Mild hydronephrosis. No focal mass, or echogenic calculi . The left kidney measures 11.2 cm in length. No hydronephrosis, focal mass, or echogenic calculi. The urinary bladder is without gross abnormality seen. IMPRESSION: Mild right hydronephrosis.
--- NOTE | 2023-06-26 21:38 | EDPHYS ---
Physician Documentation [facility] Name: Marie Gann Age: 23 yrs Sex: Female : 2000 Arrival Date: 06/26/2023 Time: 18:39 Bed DIS1 Private MD: ED Physician Mike Mcnamara HPI: 06/26 19:50 This 23 yrs old Female presents to ER via Wheelchair with complaints of Low faby Back Pain, Abdominal Pain, 24 weeks . [employer]ER: 19:37 LMP 01/03/2023, Verified, EDC 10/10/2023, Gestational age from LMP: 25 weeks 0 jj7 days Historical: - Allergies: 19:37 No Known Allergies; jj7 - PMHx: 19:37 Ovarian cyst; seasonal allergies; jj7 - PSHx: 19:37 None; jj7 - Immunization history:: Adult Immunizations up to date. - Social history:: Smoking status: Patient denies any tobacco usage or history of. Patient/guardian denies using alcohol, street drugs. ROS: 19:51 Constitutional: Negative for fever, chills, and weight loss, Eyes: Negative for injury, faby pain, redness, and discharge, ENT: Negative for injury, pain, and discharge, Neck: Negative for injury, pain, and swelling, Cardiovascular: Negative for chest pain, palpitations, and edema, Respiratory: Negative for shortness of breath, cough, wheezing, and pleuritic chest pain, : Negative for injury, bleeding, discharge, and swelling, MS/Extremity: Negative for injury and deformity, Skin: Negative for injury, rash, and discoloration, Neuro: Negative for headache, weakness, numbness, tingling, and seizure, Psych: Negative for depression, anxiety, suicide ideation, homicidal ideation, and hallucinations, Allergy/Immunology: Negative for hives, rash, and allergies, Endocrine: Negative for neck swelling, polydipsia, polyuria, polyphagia, and marked weight changes, 19:51 Abdomen/GI: Positive for abdominal pain, abdominal cramps, 19:51 Back: Positive for injury or acute deformity, decreased range of motion, pain at rest, pain with movement, flank pain, on the left, Exam: 19:51 Constitutional: This is a well developed, well nourished patient who is awake, alert, faby and in no acute distress. Head/Face: Normocephalic, atraumatic. Eyes: Pupils equal round and reactive to light, extra-ocular motions intact. Lids and lashes normal. Conjunctiva and sclera are non-icteric and not injected. Cornea within normal limits. Periorbital areas with no swelling, redness, or edema. ENT: Nares patent. No nasal discharge, no septal abnormalities noted. Tympanic membranes are normal and external auditory canals are clear. Oropharynx with no redness, swelling, or masses, exudates, or evidence of obstruction, uvula midline. Mucous membranes moist. Neck: Trachea midline, no thyromegaly or masses palpated, and no cervical lymphadenopathy. Supple, full range of motion without nuchal rigidity, or vertebral point tenderness. No Meningismus. Chest/axilla: Normal chest wall appearance and motion. Nontender with no deformity. No lesions are appreciated. Cardiovascular: Regular rate and rhythm with a normal S1 and S2. No gallops, murmurs, or rubs. Normal PMI, no JVD. No pulse deficits. Respiratory: Lungs have equal breath sounds bilaterally, clear to auscultation and percussion. No rales, rhonchi or wheezes noted. No increased work of breathing, no retractions or nasal flaring. Abdomen/GI: Soft, non-tender, with normal bowel sounds. No distension or tympany. No guarding or rebound. No evidence of tenderness throughout. Female : Normal external genitalia. Skin: Warm, dry with normal turgor. Normal color with no rashes, no lesions, and no evidence of cellulitis. MS/ Extremity: Pulses equal, no cyanosis. Neurovascular intact. Full, normal range of motion. Neuro: Awake and alert, GCS 15, oriented to person, place, time, and situation. Cranial nerves II-XII grossly intact. Motor strength 5/5 in all extremities. Sensory grossly intact. Cerebellar exam normal. Normal gait. Psych: Awake, alert, with orientation to person, place and time. Behavior, mood, and affect are within normal limits. 19:51 Back: pain, that is mild, that is moderate, ROM is painful, normal spinal alignment noted, CVA tenderness, that is mild, is noted on the left, muscle spasm, is appreciated in the left low back and left mid back, 19:51 : CVA tenderness, on the left, Pelvic Exam: Gravid exam: Fundal height: consistent with gestational age, Bladder: is normal, Sexual behavior: the patient is sexually active, and reports a single partner, Vital Signs: 19:33 BP 110 / 81; Pulse 79; Resp 19; Temp 99; Pulse Ox 100% ; Weight 63.05 kg; Height 5 ft. jj7 4 in. ; Pain 10/10; 23:02 BP 111 / 76; Pulse 71; Resp 17 S; Temp 98.7(O); Pulse Ox 100% on R/A; lg3 19:33 Body Mass Index 23.86 (63.05 kg, 162.56 cm) [facility] 19:33 Pain Scale: Adult 7 MDM: 19:32 Patient medically screened. [facility] 06/26 19:33 Order name: Abo/rh Typing; Complete Time: 21:31 [facility] 06/26 19:33 Order name: Basic Metabolic Panel; Complete Time: 21:31 [facility] 06/26 19:33 Order name: CBC with Diff; Complete Time: 21:31 [facility] 06/26 19:33 Order name: Test, Urine; Complete Time: 21:31 [facility] 06/26 19:33 Order name: Quantitative Hcg; Complete Time: 21:31 [facility] 06/26 19:33 Order name: Urinalysis w/ reflexes; Complete Time: 21:31 [facility] 06/26 19:33 Order name: Lipase; Complete Time: 21:31 [facility] 06/26 19:33 Order name: US OB Limited; Complete Time: 21:31 [facility] 06/26 19:51 Order name: US Rp Exam Complete; Complete Time: 21:31 [facility] 06/26 19:33 Order name: IV Saline Lock; Complete Time: 19:56 [facility] 06/26 19:33 Order name: Labs collected and sent; Complete Time: 19:56 [facility] 06/26 19:33 Order name: NPO; Complete Time: 19:56 [facility] Administered Medications: 22:11 Drug: NS 0.9% IV 1000 ml IV at 1 bolus Per protocol; 1000 mL bolus Route: IV; Rate: 1 lg3 bolus; Site: left antecubital; 23:01 Follow up: IV Status: Completed infusion; IV Intake: 1000ml lg3 22:11 Drug: fentaNYL (PF) IVP 25 mcg IVP once Route: IVP; Site: left antecubital; lg3 23:01 Follow up: Response: No adverse reaction; Marked relief of symptoms lg3 22:11 Drug: Ondansetron IVP 4 mg IVP once; over 2 minutes Route: IVP; Site: left antecubital; lg3 23:01 Follow up: Response: No adverse reaction; Marked relief of symptoms lg3 22:11 Drug: Rocephin IV 1 grams IV at per protocol once; Given slow IV push per pharmacy lg3 instructions Route: IV; Rate: per protocol; Site: left antecubital; 23:01 Follow up: Response: No adverse reaction; IV Status: Completed infusion; IV Intake: [id number] 22:11 Drug: Potassium PO Effervescent Tablet 25 mEq PO once; dissolve in 4 ounces of water or lg3 juice Route: PO; 23:01 Follow up: Response: No adverse reaction; Marked relief of symptoms lg3 Disposition Summary: 06/26/23 21:37 Discharge Ordered Notes: Location: Home faby Problem: new faby Symptoms: have improved faby Condition: Stable faby Diagnosis - 24 weeks gestation of faby - Unspecified symptoms and signs involving the musculoskeletal system faby - UTI/ Urinary tract infection, site not specified faby - Other hydronephrosis - mild faby - Hypokalemia faby Followup: faby - With: Private Physician - When: 2 - 3 days - Reason: Recheck today's complaints, Continuance of care, Re-evaluation by your physician Discharge Instructions: - Discharge Summary Sheet faby - Potassium Content of Foods faby - Musculoskeletal Pain faby - Care faby - Urinary Tract Infection, Adult faby - Urinary Tract Infection, Adult, [id number] faby - Hydronephrosis faby - Second Trimester of , [id number] [facility] Forms: - Medication Reconciliation Form faby - Thank You Letter faby - Antibiotic Education faby - Prescription Opioid Use faby - Patient Portal Instructions faby - Leadership Thank You Letter [facility] Prescriptions: - acetaminophen-codeine 300-30 mg Oral tablet - take 2 tablet ORAL route every 6 hours as needed for pain; 20 tablet; Refills: faby 0, Product Selection Permitted - cefdinir 300 mg Oral capsule - take 1 capsule ORAL route 2 times per day for 7 days; 14 capsule; Refills: 0, faby Product Selection Permitted Signatures: Dispatcher [employer] Mike Hodges MD MD cha Gibson, Lacie, RN RN lg3 Jordan Flores, RN RN jj7
--- NOTE | 2023-06-26 21:38 | ER ---
Nurse's Notes [facility] Name: Marie Gann Age: 23 yrs Sex: Female : 2000 Arrival Date: 06/26/2023 Time: 18:39 Bed DIS1 Private MD: Diagnosis: 24 weeks gestation of ;Unspecified symptoms and signs involving the musculoskeletal system;UTI/ Urinary tract infection, site not specified;Other hydronephrosis-mild;Hypokalemia Presentation: 06/26 19:33 Chief complaint: Patient states: WAS IN BED AND TRIED TO GET UP AND FELT A POP IN HER jj7 BACK. NOW HAVING BACK PAIN. NO VAGINAL BLEEDING OR ABDOMINAL PAIN. Coronavirus screen: At this time, the client does not indicate any symptoms associated with coronavirus-19. Ebola Screen: No symptoms or risks identified at this time. Initial Sepsis Screen: Does the patient meet any 2 criteria? No. Patient's initial sepsis screen is negative. Does the patient have a suspected source of infection? No. Patient's initial sepsis screen is negative. Risk Assessment: Do you want to hurt yourself or someone else? Patient reports no desire to harm self or others. Note DID NOT TAKE ANYTHING FOR PAIN. 19:33 Method Of Arrival: Wheelchair jj7 19:33 Acuity: AD 3 jj7 19:40 Chief complaint:. jj7 Triage Assessment: 19:37 General: Appears in no apparent distress. uncomfortable, Behavior is calm, cooperative, jj7 appropriate for age. Pain: Complains of pain in back. GI: No deficits noted. CONSTRUCTION JOB TITLES: 19:37 LMP 01/03/2023, Verified, EDC 10/10/2023, Gestational age from LMP: 25 weeks 0 jj7 days Historical: - Allergies: 19:37 No Known Allergies; jj7 - PMHx: 19:37 Ovarian cyst; seasonal allergies; jj7 - PSHx: 19:37 None; jj7 - Immunization history:: Adult Immunizations up to date. - Social history:: Smoking status: Patient denies any tobacco usage or history of. Patient/guardian denies using alcohol, street drugs. Screenin:45 [facility] ED Fall Risk Assessment (Adult) History of falling in the last 3 months, jj7 including since admission No falls in past 3 months (0 pts) Confusion or Disorientation No (0 pts) Intoxicated or Sedated No (0 pts) Impaired Gait No (0 pts) Mobility Assist Device Used No (0 pt) Altered Elimination No (0 pt) Score/Fall Risk Level 0 - 2 = Low Risk Oriented to surroundings, Maintained a safe environment, Educated pt \T\ family on fall prevention, incl call for assistance when getting out of bed. Abuse screen: Denies threats or abuse. Nutritional screening: No deficits noted. Tuberculosis screening: No symptoms or risk factors identified. Assessment: 19:45 Reassessment: SEE TRIAGE ASSESSMENT. j7 23:02 General: Appears in no apparent distress. comfortable, Behavior is calm, cooperative. lg3 Pain: Complains of pain in left low back and right low back. Neuro: No deficits noted. Snowden Agitation-Sedation Scale (RASS): 0 - Alert and Calm Level of Consciousness is awake, alert, obeys commands, Oriented to person, place, time, situation. Cardiovascular: No deficits noted. Denies chest pain, shortness of breath, Capillary refill < 3 seconds Clubbing of nail beds is absent JVD is absent Patient's skin is warm and dry. Respiratory: No deficits noted. Airway is patent Respiratory effort is even, unlabored, Respiratory pattern is regular, symmetrical. GI: No deficits noted. No signs and/or symptoms were reported involving the gastrointestinal system. Bowel sounds present X 4 quads. Abd is soft and non tender X 4 quads. : No deficits noted. No signs and/or symptoms were reported regarding the genitourinary system. EENT: No deficits noted. No signs and/or symptoms were reported regarding the EENT system. Derm: No deficits noted. No signs and/or symptoms reported regarding the dermatologic system. Skin is intact, is healthy with good turgor, Skin is dry, Skin is normal, Skin temperature is warm. Musculoskeletal: No deficits noted. Circulation, motion, and sensation intact. Range of motion: intact in all extremities, Reports pain in left low back and right low back. Vital Signs: 19:33 BP 110 / 81; Pulse 79; Resp 19; Temp 99; Pulse Ox 100% ; Weight 63.05 kg; Height 5 ft. jj7 4 in. ; Pain 10/10; 23:02 BP 111 / 76; Pulse 71; Resp 17 S; Temp 98.7(O); Pulse Ox 100% on R/A; lg3 19:33 Body Mass Index 23.86 (63.05 kg, 162.56 cm) jj7 19:33 Pain Scale: Adult j7 ED Course: 18:42 Patient arrived in ED. im 19:32 Mike Mcnamara MD is Attending Physician. faby 19:37 Triage completed. jj7 19:37 Arm band placed on right wrist. jj7 19:45 Patient has correct armband on for positive identification. Adult w/ patient. jj7 19:45 No provider procedures requiring assistance completed. jj7 19:56 Lipase Sent. bc6 19:57 Abo/rh Typing Sent. bc6 19:57 Basic Metabolic Panel Sent. bc6 19:57 CBC with Diff Sent. bc6 19:57 Test, Urine Sent. bc6 19:57 Quantitative Hcg Sent. bc6 19:57 Urinalysis w/ reflexes Sent. bc6 19:57 Inserted saline lock: 20 gauge in left antecubital area, using aseptic technique. Blood bc6 collected. 20:17 US OB Limited In Process Unspecified. EDMS 20:17 US Rp Exam Complete In Process Unspecified. EDMS 23:02 IV discontinued, intact, bleeding controlled, No redness/swelling at site. Pressure lg3 dressing applied. Administered Medications: 22:11 Drug: NS 0.9% IV 1000 ml IV at 1 bolus Per protocol; 1000 mL bolus Route: IV; Rate: 1 lg3 bolus; Site: left antecubital; 23:01 Follow up: IV Status: Completed infusion; IV Intake: 1000ml lg3 22:11 Drug: fentaNYL (PF) IVP 25 mcg IVP once Route: IVP; Site: left antecubital; lg3 23:01 Follow up: Response: No adverse reaction; Marked relief of symptoms lg3 22:11 Drug: Ondansetron IVP 4 mg IVP once; over 2 minutes Route: IVP; Site: left antecubital; lg3 23:01 Follow up: Response: No adverse reaction; Marked relief of symptoms lg3 22:11 Drug: Rocephin IV 1 grams IV at per protocol once; Given slow IV push per pharmacy lg3 instructions Route: IV; Rate: per protocol; Site: left antecubital; 23:01 Follow up: Response: No adverse reaction; IV Status: Completed infusion; IV Intake: [id number] 22:11 Drug: Potassium PO Effervescent Tablet 25 mEq PO once; dissolve in 4 ounces of water or lg3 juice Route: PO; 23:01 Follow up: Response: No adverse reaction; Marked relief of symptoms lg3 Medication: 19:45 VIS not applicable for this client. jj7 Intake: 23:01 IV: 10ml; Total: 10ml. lg3 23:01 IV: 1000ml; Total: 1010ml. lg3 Outcome: 21:37 Discharge ordered by . faby 23:02 Discharged to home via wheelchair, with significant other, lg3 23:02 Condition: stable 23:02 Discharge instructions given to patient, Instructed on discharge instructions, follow up and referral plans. medication usage, Demonstrated understanding of instructions, follow-up care, medications, Prescriptions given X 2, 23:05 Patient left the ED. lg3 Signatures: Dispatcher [employer] EDMS Mike Mcnamara MD MD cha Gibson, Lacie, RN RN lg3 Jordan Flores RN RN jj7 [facility]nie Hightower Corrections: (The following items were deleted from the chart) 19:41 19:33 Chief complaint: Patient states: WAS IN BED AND TRIED TO GET UP AND FELT A POP IN jj7 HER BACK. NOW HAVING BACK PAIN. NO VAGINAL BLEEDING jj7 19:41 19:33 Ebola Screen: No symptoms or risks identified at this time. jj7 jj7
[2023-06-26] MEDS ORDERED: CEFTRIAXONE 1000 MG/VIAL ONE (22:08)
[2023-06-26] MEDS ORDERED: ONDANSETRON 4 MG/2 ML VIAL ONE (22:08)
[2023-06-26] MEDS ORDERED: POTASSIUM 25 MEQ EFFERV TAB ONE (22:08)
[2023-06-26] MEDS ORDERED: NA CHLORIDE 0.9% 1,000 ML ONE (22:08)
[2023-06-26] MEDS ORDERED: FENTANYL CITR 100 MCG/2 ML ONE (22:10)
[2023-06-26 23:32] VITALS: O2SAT 100
[2023-06-26 23:34] VITALS: BP 111/76; TEMP 98.7
== END 2023-06-26 23:05 | disposition home or self-care (01) ==
LOC: ER 18:39
DX: O23.42 Unspecified infection of urinary tract in pregnancy, second trimester (principal); N39.0 Urinary tract infection, site not specified; O99.282 Endocrine, nutritional and metabolic diseases complicating pregnancy, second trimester; E87.6 Hypokalemia; O99.891 Other specified diseases and conditions complicating pregnancy; N13.39 Other hydronephrosis; R29.91 Unspecified symptoms and signs involving the musculoskeletal system; Z3A.24 24 weeks gestation of pregnancy
CPT/HCPCS: 96365; 85025; 81001; 80048; 36415; 86900; 81025; 86901; 84702; 83690; 76815; 76770; 96375; 99284; J3010; J2405; J7030; J0696

== ENCOUNTER → 2023-08-04 | Emergency (ER) | payer OTHER ==
--- OUTSIDE RECORDS SUMMARY | 2023-08-04 11:06 | XMS REPORT | Continuity of Care Document ---
Author Name Unknown Address [address] [place] [address] [employer]connect Address [address] [place] [address] [address] [place] [address] Care Team Providers Care Display Fabrication Supervisor Name Role Phone Unavailable Unavailable Unavailable
[2023-08-04 11:50] LABS: Specific Gravity 1.024 (1.005-1.030); Urine Bacteria <20 /HPF (<20); Urine Bilirubin NEGATIVE (Negative); Urine Blood Negative (Negative); Urine Clarity Extremely Turbid (Clear); Urine Color Yellow (Yellow); Urine Glucose NEGATIVE (Negative); Urine Mucus 2+ /HPF (None Seen); Urine Protein TRACE (Negative); Urine RBC <5 /HPF (None Seen); Urine Urobilinogen 2+ (Normal); Urine pH 6.5 (5.0-7.0)
--- NOTE | 2023-08-04 12:05 | ER ---
Nurse's Notes [facility] Name: Marie Gann Age: 23 yrs Sex: Female : 2000 Arrival Date: 08/04/2023 Time: 11:02 Bed 8 Private MD: Diagnosis: 30 weeks gestation of ;Wirt Goldman contractions Presentation: 08/04 11:13 Chief complaint: Pt is 30 weeks , , reports one contraction per hour hb lasting approx 45 seconds x 3 days, increased vaginal discharge and pelvic pressure since yesterday. LMP 01/03/23, THERON 10/09. Coronavirus screen: At this time, the client does not indicate any symptoms associated with coronavirus-19. Ebola Screen: No symptoms or risks identified at this time. Initial Sepsis Screen: Does the patient meet any 2 criteria? No. Patient's initial sepsis screen is negative. Does the patient have a suspected source of infection? No. Patient's initial sepsis screen is negative. Risk Assessment: Do you want to hurt yourself or someone else? Patient reports no desire to harm self or others. Onset of symptoms was August 02, 2023. 11:13 Method Of Arrival: Ambulatory hb 11:13 Acuity: AD 3 hb Historical: - Allergies: 11:16 No Known Allergies; hb - Home Meds: 11:16 Vitamin Oral [Active]; hb - PMHx: 11:16 Ovarian cyst; seasonal allergies; hb - PSHx: 11:16 None; hb - Immunization history:: Adult Immunizations up to date. - Social history:: Smoking status: Patient denies any tobacco usage or history of. Screenin:40 [facility] ED Fall Risk Assessment (Adult) History of falling in the last 3 months, db including since admission No falls in past 3 months (0 pts) Confusion or Disorientation No (0 pts) Score/Fall Risk Level 0 - 2 = Low Risk Oriented to surroundings, Maintained a safe environment. Abuse screen: Denies threats or abuse. Denies injuries from another. Nutritional screening: No deficits noted. Tuberculosis screening: No symptoms or risk factors identified. Assessment: 11:17 Reassessment: Patient appears in no apparent distress at this time. Patient and/or db family updated on plan of care and expected duration. Pain level reassessed. Patient is alert, oriented x 3, equal unlabored respirations, skin warm/dry/pink. PATIENT STATES HAS 1 CONTRACTION EVERY HOUR. LAST SEEN ON SATURDAY BY OB. STATES JUST WANTS TO GET CHECKED OUT. Neuro: Level of Consciousness is awake, alert, obeys commands, Oriented to person, place, time, situation. 12:00 Reassessment: Patient appears in no apparent distress at this time. Patient and/or db family updated on plan of care and expected duration. Pain level reassessed. Patient is alert, oriented x 3, equal unlabored respirations, skin warm/dry/pink. Patient states feeling better. Patient states symptoms have improved. General: Appears in no apparent distress. comfortable, Behavior is calm, cooperative. Pain: Denies pain. Vital Signs: 11:13 BP 100 / 80; Pulse 71; Resp 16; Temp 98.2; Pulse Ox 100% ; Weight 64.41 kg; Height 5 hb ft. 3 in. ; Pain 0/10; 12:00 BP 105 / 77; Pulse 97; Resp 18; Pulse Ox 100% on R/A; db 11:13 Body Mass Index 25.15 (64.41 kg, 160.02 cm) hb 11:13 Pain Scale: Adult hb ED Course: 11:06 Patient arrived in ED. mg5 11:06 Manpreet Harris MD is Attending Physician. ec2 11:09 Mehnaz Steel, RANDOLPH is Primary Nurse. db 11:16 Triage completed. hb 11:17 Arm band placed on. hb 11:20 [facility] Ramirez [facility]. aa5 11:25 Urine collected: clean catch specimen, clear. db 11:40 No provider procedures requiring assistance completed. db 12:24 Bed in low position. Side rails up X 1. Provided Education on: OB FOLLOWUP. db 12:24 Patient did not have IV access during this emergency room visit. db Administered Medications: No medications were administered Medication: 12:24 VIS not applicable for this client. db Outcome: 12:05 Discharge ordered by . jh7 12:24 Discharged to home ambulatory, db 12:24 Condition: stable 12:24 Discharge instructions given to patient, Instructed on discharge instructions, follow up and referral plans. 12:42 Patient left the ED. db Signatures: Emilia Rojo RN RN aa5 Manju Abarca RN RN Patsy Ramirez FNP WIRELESS OPERATOR jh7 Mehnaz Steel, RN RN db Narcisa Hernandez mg5 Manrpeet Harris MD MD ec2
--- NOTE | 2023-08-04 12:06 | EDPHYS ---
Physician Documentation [facility] Name: Marie Gann Age: 23 yrs Sex: Female : 2000 Arrival Date: 08/04/2023 Time: 11:02 Bed 8 Private MD: ED Physician Manpreet Harris HPI: 08/04 11:16 This 23 yrs old Female presents to ER via Ambulatory with complaints of jh7 Preg-30wks 3days, Back Pain, Contractions. 11:16 Onset: The symptoms/episode began/occurred 3 day(s) ago. 23-year-old female presents to [facility] the ER complaining of lower back aching and contractions for the past 3 days. She is currently 30 weeks , G2, P1 and was seen by her ARMATURE STRAIGHTENER on Saturday. She reports that the contractions have not changed and that they last about 45 seconds and occur once an hour. She also reports a slight increase of white/clear vaginal discharge. Denies significant pain, dysuria, fever, vaginal bleeding, or any other symptoms at this time. She stated that she would just like a cervical check.. Historical: - Allergies: 11:16 No Known Allergies; hb - Home Meds: 11:16 Vitamin Oral [Active]; hb - PMHx: 11:16 Ovarian cyst; seasonal allergies; hb - PSHx: 11:16 None; hb - Immunization history:: Adult Immunizations up to date. - Social history:: Smoking status: Patient denies any tobacco usage or history of. ROS: 11:16 Constitutional: Negative for fever, chills, and weight loss, Eyes: Negative for injury, [facility] pain, redness, and discharge, Neck: Negative for injury, pain, and swelling, Cardiovascular: Negative for chest pain, palpitations, and edema, Respiratory: Negative for shortness of breath, cough, wheezing, and pleuritic chest pain, MS/Extremity: Negative for injury and deformity, Skin: Negative for injury, rash, and discoloration, Neuro: Negative for headache, weakness, numbness, tingling, and seizure, 11:16 Abdomen/GI: Positive for abdominal cramps, Negative for nausea, vomiting, and diarrhea, 11:16 Back: Positive for pain at rest, 11:16 All other systems are negative, Exam: 11:16 Constitutional: This is a well developed, well nourished patient who is awake, alert, jh7 and in no acute distress. Head/Face: Normocephalic, atraumatic. Neck: Trachea midline, no thyromegaly or masses palpated, and no cervical lymphadenopathy. Supple, full range of motion without nuchal rigidity, or vertebral point tenderness. No Meningismus. Cardiovascular: Regular rate and rhythm with a normal S1 and S2. No gallops, murmurs, or rubs. Normal PMI, no JVD. No pulse deficits. Respiratory: Lungs have equal breath sounds bilaterally, clear to auscultation and percussion. No rales, rhonchi or wheezes noted. No increased work of breathing, no retractions or nasal flaring. Back: No spinal tenderness. No costovertebral tenderness. Full range of motion. Female : Normal external genitalia. Skin: Warm, dry with normal turgor. Normal color with no rashes, no lesions, and no evidence of cellulitis. MS/ Extremity: Pulses equal, no cyanosis. Neurovascular intact. Full, normal range of motion. Neuro: Awake and alert, GCS 15, oriented to person, place, time, and situation. Normal gait. 11:16 Abdomen/GI: Inspection: gravid appearance, is noted, Bowel sounds: normal, in all quadrants, 11:16 : Gravid exam: Cervical size: the cervix is not dilated, Effacement: the is no cervical effacement, Vital Signs: 11:13 BP 100 / 80; Pulse 71; Resp 16; Temp 98.2; Pulse Ox 100% ; Weight 64.41 kg; Height 5 hb ft. 3 in. ; Pain 0/10; 12:00 BP 105 / 77; Pulse 97; Resp 18; Pulse Ox 100% on R/A; db 11:13 Body Mass Index 25.15 (64.41 kg, 160.02 cm) hb 11:13 Pain Scale: Adult hb MDM: 11:14 Patient medically screened. ec2 11:55 Differential diagnosis: [place] contractions, labor, UTI. Data reviewed: [facility] vital signs, nurses notes, lab test result(s), urinalysis. I considered the following discharge prescriptions or medication management in the emergency department Medications were administered in the Emergency Department. See MAR. Counseling: I had a detailed discussion with the patient and/or guardian regarding the historical points, exam findings, and any diagnostic results supporting the discharge/admit diagnosis, the need for outpatient follow up, an OB/Gyne specialist, to return to the emergency department if symptoms worsen or persist or if there are any questions or concerns that arise at home. 08/04 11:27 Order name: Urinalysis W/Microscopic; Complete Time: 11:52 [facility] Administered Medications: No medications were administered Disposition Summary: 08/04/23 12:05 Discharge Ordered Notes: Location: Home [facility] Problem: an ongoing problem [facility] Symptoms: are unchanged [facility] Condition: Stable [facility] Diagnosis - 30 weeks gestation of 7 - [place] Goldman contractions [facility] Followup: [facility] - With: Private Physician - When: Tomorrow - Reason: Discharge Instructions: - Discharge Summary Sheet [facility] - Third Trimester of [facility] - Back Pain in [facility] Forms: - Medication Reconciliation Form [facility] - Thank You Letter [facility] - Patient Portal Instructions [facility] - Leadership Thank You Letter [facility] Signatures: Dispatcher [employer] Manju Henson, RANDOLPH RN Patsy Ramirez, OUTREACH LIBRARIAN OUTREACH LIBRARIAN [facility] Manpreet Harris MD MD ec2
[2023-08-04 13:25] VITALS: BP 105/77; TEMP 98.2; O2SAT 100
== END ==
LOC: ER 11:02
DX: O47.03 False labor before 37 completed weeks of gestation, third trimester (principal); Z3A.30 30 weeks gestation of pregnancy
CPT/HCPCS: 81001; 99283

== ENCOUNTER 2024-04-02 09:44 | Emergency (ER) | payer OTHER ==
[2024-04-02 11:10] LABS: Absolute Eosinophils 0.1 K/uL (0-0.5); Absolute Lymphocytes (CBC) 3.1 K/uL (0.7-4.9); Absolute Monocytes 0.3 K/uL (0.1-1.3); Absolute Neutrophil 2.8 K/uL (1.8-8.0); Basophils % 0.7 % (0-1.3); Eosinophils % 1.9 % (0-4.4); Hematocrit 39.6 % (36.0-45.0); Hemoglobin 13.4 g/dL (12.0-15.0); Lymphocytes % 49.3 % (15.3-44.8); MCH 28.8 pg (27.0-35.0); MCHC 33.8 g/dL (32.0-36.0); MCV 85.4 fL (80-100); MPV 6.7 fL (7.6-11.3); Monocytes % 4.9 % (3.3-12.3); Neutrophils % 43.2 % (41.7-73.7); Nucleated Red Blood Cells % 0.1 % (0-0); Platelets 467 thou/uL (152-406); RBC Red Blood Cell Count 4.64 M/uL (3.86-4.86); Red Cell Distribution Width 14.6 % (12.1-15.2)
[2024-04-02 11:11] LABS: PT Prothrombin Time 11.7 SECONDS (9.4-12.5); Protime INR 1.05
[2024-04-02 11:33] LABS: ALT/SGPT 36 U/L (13-56); AST/SGOT 13 U/L (15-37); Albumin 3.6 g/dL (3.4-5.0); Alkaline Phosphatase 84 U/L (45-117); Anion Gap 8.5 mEq/L (5.0-15.0); BUN Blood Urea Nitrogen 11 mg/dL (7-18); Bicarbonate 28 mEq/L (21-32); Bilirubin Total 0.6 mg/dL (0.2-1.0); Globulin 3.7 g/dL (2.3-3.5); Glomerular Filtration Rate 130 ml/min (=/>90); Glucose Level 93 mg/dL (74-106); Potassium 3.5 mEq/L (3.5-5.1); Protein, Total 7.3 g/dL (6.4-8.2); Sodium Level 141 mEq/L (136-145)
[2024-04-02 11:34] LABS: Bilirubin Direct < 0.2 mg/dL (0-0.2); Bilirubin Indirect, Calculated 0.4 mg/dL (0.2-0.8)
--- NOTE | 2024-04-02 11:54 | ER ---
Nurse's Notes [facility] Name: Marie Gann Age: 23 yrs Sex: Female : 2000 Arrival Date: 04/02/2024 Time: 09:44 Bed 5 Private MD: Diagnosis: Generalized weakness, hypothyroidism Presentation: 04/02 10:03 Chief complaint: Patient states: Pt states feeling dizzy, body feels heavy and seeing dd2 white spots for the past 2 days. Denies passing out. Coronavirus screen: At this time, the client does not indicate any symptoms associated with coronavirus-19. Ebola Screen: No symptoms or risks identified at this time. Initial Sepsis Screen: Does the patient meet any 2 criteria? No. Patient's initial sepsis screen is negative. Does the patient have a suspected source of infection? No. Patient's initial sepsis screen is negative. Risk Assessment: Do you want to hurt yourself or someone else? Patient reports no desire to harm self or others. Onset of symptoms was March 31, 2024. 10:03 Method Of Arrival: Ambulatory dd2 10:03 Acuity: AD 3 dd2 Triage Assessment: 10:06 General: Appears in no apparent distress. Behavior is calm, cooperative, appropriate dd2 for age. Pain: Denies pain. 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 - Infectious Disease History:: Denies. - Social history:: Smoking status: Reported history of juuling and/or vaping. Screenin:[address] [facility] ED Fall Risk Assessment (Adult) History of falling in the last 3 months, ph including since admission No falls in past 3 months (0 pts) Confusion or Disorientation No (0 pts) Intoxicated or Sedated No (0 pts) Impaired Gait No (0 pts) Mobility Assist Device Used No (0 pt) Altered Elimination No (0 pt) Score/Fall Risk Level 0 - 2 = Low Risk Oriented to surroundings, Maintained a safe environment, Hourly rounding (assess needs \T\ fall precautionary measures) done. Abuse screen: Denies threats or abuse. Denies injuries from another. Nutritional screening: No deficits noted. Tuberculosis screening: No symptoms or risk factors identified. Assessment: 10:54 General: Appears in no apparent distress. Behavior is calm, cooperative. Neuro: Level ph of Consciousness is awake, alert, obeys commands, Oriented to person, place, time, situation, Reports dizziness, weakness in all over. Cardiovascular: Reports fatigue, lightheadedness, Denies chest pain, Capillary refill < 3 seconds in bilateral fingers Patient's skin is warm and dry. Respiratory: Airway is patent Respiratory effort is even, unlabored. GI: No signs and/or symptoms were reported involving the gastrointestinal system. : No signs and/or symptoms were reported regarding the genitourinary system. Derm: Skin is pink, warm \T\ dry. 12:04 Reassessment: Patient and/or family updated on plan of care and expected duration. Pain rs5 level reassessed. Patient is alert, oriented x 3, equal unlabored respirations, skin warm/dry/pink. Patient states feeling better. Patient states symptoms have improved. Vital Signs: 10:03 BP 125 / 97; Pulse 70; Resp 15; Temp 97.3(TE); Pulse Ox 100% ; Weight 65.77 kg; Height dd2 5 ft. 4 in. ; 11:00 BP 118 / 79; Pulse 76; Resp 18; Pulse Ox 98% on R/A; ph 12:04 BP 122 / 81; Pulse 74; Resp 17; Pulse Ox 99% ; rs5 10:03 Body Mass Index 24.89 (65.77 kg, 162.56 cm) dd2 ED Course: 09:46 Patient arrived in ED. mg5 09:58 Samy Donis MD is Attending Physician. sp3 10:06 Triage completed. dd2 10:06 Arm band placed on right wrist. Patient placed in an exam room, on a stretcher, on dd2 pulse oximetry, Patient notified of wait time. 10:15 Hawa Philip, RN is Primary Nurse. ph 10:16 Patient has correct armband on for positive identification. Bed in low position. Call ph light in reach. Side rails up X 1. Pulse ox on. NIBP on. Door closed. Noise minimized. Warm blanket given. 10:59 TSH Sent. bc6 10:59 Basic Metabolic Panel Sent. bc6 10:59 CBC with Diff Sent. bc6 10:59 LFT's Sent. bc6 10:59 PT-INR Sent. bc6 10:59 Initial lab(s) drawn, by me, sent to lab. Inserted saline lock: 20 gauge in right bc6 antecubital area, using aseptic technique. Blood collected. Flushed with 10 mL NS. 12:04 No provider procedures requiring assistance completed. IV discontinued, intact, rs5 bleeding controlled, No redness/swelling at site. Pressure dressing applied. Administered Medications: No medications were administered Medication: 10:16 VIS not applicable for this client. ph Outcome: 11:53 Discharge ordered by . sp3 12:04 Discharged to home ambulatory, rs5 12:04 Condition: stable 12:04 Discharge instructions given to patient, family, Instructed on discharge instructions, follow up and referral plans. Demonstrated understanding of instructions, follow-up care, 12:04 Patient left the ED. rs5 Signatures: Hawa Philip RN RN Samy Donis MD MD sp3 Tim Martínez RN RN rs5 Halle Ochoa [facility]5 CHARAN LOVE RN RN dd2
--- NOTE | 2024-04-02 11:54 | EDPHYS ---
Physician Documentation [facility] Name: Marie Gann Age: 23 yrs Sex: Female : 2000 Arrival Date: 04/02/2024 Time: 09:44 Bed 5 Private MD: ED Physician Samy Donis HPI: 04/02 10:52 This 23 yrs old Female presents to ER via Ambulatory with complaints of sp3 Dizziness, Near Syncope. 10:52 23-year-old female with history of anxiety, depression, anemia diagnosed Xmas ago when sp3 she gave to her second child now presents to the ED with generalized weakness, near syncope type symptoms. She denies headache, fever, chest pain, shortness of breath, back pain, abdominal pain, bleeding, heavy menses, or any other concerning symptoms. She states she is supposed to be on iron but "never was able to pick it up". ROS otherwise negative.. MANAGEMENT CONSULTING: 10:06 LMP 03/28/2024, unknown dd2 Historical: - Allergies: 10:06 No Known Allergies; dd2 - PMHx: 10:06 Ovarian cyst; seasonal allergies; Anxiety; Depressive disorder; dd2 - PSHx: 10:06 None; dd2 - Immunization history:: Adult Immunizations unknown. - Infectious Disease History:: Denies. - Social history:: Smoking status: Reported history of juuling and/or vaping. ROS: 10:53 Constitutional: Negative for fever, chills, and weight loss, Eyes: Negative for injury, sp3 pain, redness, and discharge, ENT: Negative for injury, pain, and discharge, Neck: Negative for injury, pain, and swelling, Cardiovascular: Negative for chest pain, palpitations, and edema, Respiratory: Negative for shortness of breath, cough, wheezing, and pleuritic chest pain, Abdomen/GI: Negative for abdominal pain, nausea, vomiting, diarrhea, and constipation, Back: Negative for injury and pain, MS/Extremity: Negative for injury and deformity, Skin: Negative for injury, rash, and discoloration, Psych: Negative for depression, anxiety, suicide ideation, homicidal ideation, and hallucinations, Endocrine: Negative for neck swelling, polydipsia, polyuria, polyphagia, and marked weight changes, 10:53 All other systems are negative, Exam: 10:53 Constitutional: This is a well developed, well nourished patient who is awake, alert, sp3 and in no acute distress. Head/Face: Normocephalic, atraumatic. Eyes: Pupils equal round and reactive to light, extra-ocular motions intact. Lids and lashes normal. Conjunctiva and sclera are non-icteric and not injected. Cornea within normal limits. Periorbital areas with no swelling, redness, or edema. ENT: Nares patent. No nasal discharge, no septal abnormalities noted. External auditory canals are clear. Oropharynx with no redness, swelling, or masses, exudates, or evidence of obstruction, uvula midline. Mucous membranes moist. Neck: Trachea midline, no thyromegaly or masses palpated, and no cervical lymphadenopathy. Supple, full range of motion without nuchal rigidity, or vertebral point tenderness. No Meningismus. Chest/axilla: Normal chest wall appearance and motion. Nontender with no deformity. No lesions are appreciated. Cardiovascular: Regular rate and rhythm with a normal S1 and S2. No gallops, murmurs, or rubs. Normal PMI, no JVD. No pulse deficits. Respiratory: Lungs have equal breath sounds bilaterally, clear to auscultation and percussion. No rales, rhonchi or wheezes noted. No increased work of breathing, no retractions or nasal flaring. Abdomen/GI: Soft, non-tender, with normal bowel sounds. No distension or tympany. No guarding or rebound. No evidence of tenderness throughout. Back: No spinal tenderness. No costovertebral tenderness. Full range of motion. Skin: Warm, dry with normal turgor. Normal color with no rashes, no lesions, and no evidence of cellulitis. MS/ Extremity: Pulses equal, no cyanosis. Neurovascular intact. Full, normal range of motion. Neuro: Awake and alert, GCS 15, oriented to person, place, time, and situation. Cranial nerves II-XII grossly intact. Motor strength 5/5 in all extremities. Sensory grossly intact. Cerebellar exam normal. Normal gait. Psych: Awake, alert, with orientation to person, place and time. Behavior, mood, and affect are within normal limits. Vital Signs: 10:03 BP 125 / 97; Pulse 70; Resp 15; Temp 97.3(TE); Pulse Ox 100% ; Weight 65.77 kg; Height dd2 5 ft. 4 in. ; 11:00 BP 118 / 79; Pulse 76; Resp 18; Pulse Ox 98% on R/A; ph 12:04 BP 122 / 81; Pulse 74; Resp 17; Pulse Ox 99% ; rs5 10:03 Body Mass Index 24.89 (65.77 kg, 162.56 cm) dd2 MDM: 10:08 Patient medically screened. sp3 10:53 Data reviewed: vital signs, nurses notes. ED course: 23-year-old female with sp3 generalized weakness and near syncope particularly on exertion. Differential diagnosis includes anemia of any type, hypothyroidism, electrolyte abnormality, among others. I am mentally suspicious of sepsis, shock, cardiac pathology, PE pneumonia other critical process. Workup will include general laboratory values including CBC and TSH. Disposition pending workup and patient course. Vital signs are normal and patient will follow-up with PCP if workup is negative.. 11:51 ED course: Hemoglobin normal. TSH mildly elevated. We will safely discharge patient sp3 home and she can follow-up with her PCP regarding further workup as needed. Currently asymptomatic with normal physical exam and normal vital signs on discharge.. 04/02 10:48 Order name: Basic Metabolic Panel; Complete Time: 11:51 sp3 04/02 10:48 Order name: CBC with Diff; Complete Time: 11:51 sp3 04/02 10:48 Order name: LFT's; Complete Time: 11:51 sp3 04/02 10:48 Order name: PT-INR; Complete Time: 11:51 sp3 04/02 10:48 Order name: TSH; Complete Time: 11:51 sp3 04/02 11:36 Order name: T4 Free; Complete Time: 11:51 EDMS 04/02 10:48 Order name: IV Saline Lock; Complete Time: 10:59 sp3 04/02 10:48 Order name: Labs collected and sent; Complete Time: 10:59 sp3 Administered Medications: No medications were administered Disposition Summary: 04/02/24 11:53 Discharge Ordered Notes: Location: Home sp3 Condition: Stable sp3 Diagnosis - Generalized weakness, hypothyroidism sp3 Followup: sp3 - With: Private Physician - When: Upon discharge from the Emergency Department - Reason: Continuance of care Discharge Instructions: - Discharge Summary Sheet sp3 - Hypothyroidism sp3 Forms: - Medication Reconciliation Form sp3 - Antibiotic Education sp3 - Prescription Opioid Use sp3 - Patient Portal Instructions sp3 - Leadership Thank You Letter sp3 Signatures: Dispatcher [employer] EDSamy Rubin MD MD sp3 CHARAN LOVE RN RN dd2 Corrections: (The following items were deleted from the chart) 10:49 10:49 THYROID STIMULAT HORMONE+[id number].LAB.BRZ ordered. EDMS EDMS
[2024-04-02 12:20] VITALS: TEMP 97.3
[2024-04-02 12:21] VITALS: BP 122/81; O2SAT 99
== END 2024-04-02 12:04 | disposition home or self-care (01) ==
LOC: ER 09:44
DX: E03.9 Hypothyroidism, unspecified (principal)
CPT/HCPCS: 36415; 80048; 80076; 84439; 84443; 85025; 85610; 99284

== ENCOUNTER 2024-06-29 20:29 | Emergency (ER) | payer OTHER ==
--- OUTSIDE RECORDS SUMMARY | 2024-06-29 20:35 | XMS REPORT | Continuity of Care Document ---
Author Name Unknown Address [address] [facility] [address] [place] [address] [facility] Address [address] [facility] [address] [place] [address] Care Team Providers Care Fifth Hand Name Role Phone Pawel Gayle Primary Care Physician [phone] ANGELINA SAM Attending Clinician Unavailab ANGELINA Childress Attending Clinician UnavailRhoda Mittal MD Attending Clinician [phone]- [phone] 2, [facility] Attending Clinician Unavailable Angelina Sam MD Attending Clinician [phone] RHODA KRISHNAMURTHY Attending Clinician RHODA Dial Attending Clinician Maryse Landers MD, Nicholas Greco Attending Clinician [phone] Pob, [facility] Main Attending Clinician Unavailabl e Doctor Unassigned, [place] Attending Clinician U DAMARIS Singleton Attending Clinician Unavailable Damaris Gabriel MD Attending Clinician [phone] Triston Sun MD Attending Clinician [phone] TRISTON SUN Attending Clinician Unavailable 2, [facility] Attending Clinician Unavailable Ultrasound, Ang-Mfm Attending Clinician Unavaila Brook Villarreal MD Attending Clinician BROOK MARI Attending Clinician Unavailable BROOK MARI Attending Clinician Unavailable Chelle Renteria RN Attending Clinician Unavailabl e Lab, Ang - Db Attending Clinician Unavailable Mery Chairez Attending Clinician [phone] Attending Clinician Unavailable [address] Attending Clinician Unavailable Cheyenne Meredith MD Attending Clinician [phone] [facility] Attending Clinician Unavailable Sonia Poon MD Attending Clinician [phone] SONIA POON Attending Clinician Unavailable Trimester, [facility]-Rm[facility] Res-1st Attending Clinician Unavailable DAISHA THORNE Attending Clinician Unavailable Daisha Thorne MD Attending Clinician [phone] WILIAM BRAND Attending Clinician Unavailable KENIA DONALD Attending Clinician UnavailKENIA Khoury Attending Clinician Unavaila Mona Stubbs DO Attending Clinician [phone] MONA GARCIA Attending Clinician Unavailab TRACE Mendieta Attending Clinician Unavailab Aster Horton MD Attending Clinician [phone] ASTER HERNANDEZ Attending Clinician Unavailable Trace Valdes Attending Clinician [phone] RHODA KRISHNAMURTHY Admitting Clinician DAMARIS Herrera Admitting Clinician Unavailable Damaris Gabriel MD Admitting Clinician [phone] Admitting Clinician Unavailable DAISHA THORNE Admitting Clinician Unavailable Daisha Thorne MD Admitting Clinician [phone] Payers Payer Name Policy Type Policy Number Effective Date Expirati on Date Source [place] [employer] [id number] 2023 00:00:00 Problems Condition Name Condition Details Condition Category Status Onset Date Resolution Date Last Treatment Date Treating Clinician Comments Source Liveborn infant, of barrera , born in hospital by vaginal delivery Liveborn infant, of barrera , born in hospital by vaginal delivery Disease Active 10-04 00:00: 00 [facility] Normal labor Normal labor Disease Active 10-02 00:00: 00 [facility] 39 weeks gestation of 39 weeks gestation of Disease Active 307 00:00: 00 [facility] ASB (asymptoma tic bacteriuri a) ASB (asymptoma tic bacteriuri a) Disease Active 9 00:00: 00 [facility] High-risk in third trimester High-risk in third trimester Disease Active 04-04 00:00: 00 [facility] Rubella non-immune status, antepartum Rubella non-immune status, antepartum Disease Active 04-04 00:00: 00 [facility] Low TSH level Low TSH level Disease Active 514 00:00: 00 [facility] Screening examinatio n for STD (sexually transmitte d disease) Screening examinatio n for STD (sexually transmitte d disease) Disease Resolve d 01-09 00:00: 00 2023-03-07 00:00:00 2023-03-07 15:23:49 [facility] IUD (intrauter ine device) in place IUD (intrauter ine device) in place Disease Resolve d 01-09 00:00: 00 2023-03-07 00:00:00 2023-03-07 08:00:26 [facility] Allergies, Adverse Reactions, Alerts Allergy Name Allergy Type Status Severity Reaction(s) Onset Date Inactive Date Treating Clinician Comments Source NO KNOWN ALLERGIE S Drug Class Active [facility] Social History Social Habit Start Date Stop Date Quantity Comments Source ASSERTION 2023-01-17 00:00:00 [facility] Gender identity [facility] SDOH Alcohol Frequency [facility] History SDOH Alcohol Std Drinks [facility] History SDOH Alcohol Binge [facility] Alcoholic beverage intake 2023-10-04 00:00:00 2023-10-04 00:00:00 .43 /d [facility] Alcohol intake 2023-10-04 00:00:00 2023-10-04 00:00:00 .43 /d [facility] Exposure to SARS-CoV-2 (event) 2022-06-19 00:00:00 2022-06-29 14:25:00 Not sure [facility] Tobacco use and exposure 2022-06-29 00:00:00 2022-06-29 00:00:00 Smokeless tobacco non-user [facility] History of Social function 2022-01-09 00:00:00 2022-01-09 00:00:00 [facility] Alcohol Comment 2022-01-09 00:00:00 2022-01-09 00:00:00 socially [facility] Sex assigned at 2001 00:00:00 2001 00:00:00 [facility] Smoking Status Start Date Stop Date Source Never smoked tobacco [facility] Medications Ordered Medication Name Filled Medication Name Start Date Stop Date Current Medication? Ordering Clinician Indication Dosage Frequency Signature (SIG) Comments Components Source vit no.124/iron /folic ( VITAMIN ORAL) 10-04 04:57: 04 10-04 00:00 :00 No Take by mouth. [facility] vitamin w/FA tablet 10-04 00:00: 00 Yes [id number] 102 1{tbl} Take 1 tablet by mouth in the morning. [facility] docusate 100 mg capsule 10-04 00:00: 00 Yes [id number] 102 200mg Take 2 capsules by mouth once daily as needed for Constipati on. [facility] ferrous sulfate 325 mg (65 mg iron) tablet 10-04 00:00: 00 Yes [id number] 102 325mg Take 1 tablet by mouth in the morning. [facility] ibuprofen 600 mg tablet 10-04 00:00: 00 Yes [id number] 102 600mg Take 1 tablet by mouth every 6 (six) hours as needed (Pain). Take with food or milk. [facility] rho(D) immune globulin (RHOGAM) syringe 300 mcg 10-03 07:45: 11 Yes 300ug 300 mcg, Intramuscu lar, ONCE, For 1 dose, Conditiona l Routine [facility] HYDROcodone -acetaminop hen (NORCO 5) 5-325 mg tablet 1 tablet 10-03 07:44: 07 Yes 1{tbl} 1 tablet, Oral, Q6HPRN, Starting on Sat10/04/23 at 0144, Until Discontinu ed, Routine, Pain (scale 7-10) [facility] ibuprofen (IBU) tablet 600 mg 10-03 07:44: 07 Yes 600mg 600 mg, Oral, Q6HPRN, Starting on Sat10/04/23 at 0144, Until Discontinu ed, Routine, Pain (scale 4-6) [facility] acetaminoph en (TYLENOL) tablet 650 mg 10-03 07:44: 07 Yes 650mg 650 mg, Oral, Q6HPRN, Starting on Sat10/04/23 at 0144, Until Discontinu ed, Routine, Pain (scale 1-3) [facility] diphenhydrA MINE (BENADRYL) tablet 25 mg 10-03 07:44: 07 Yes 25mg 25 mg, Oral, Q6HPRN, Starting on Sat10/04/23 at 0144, Until Discontinu ed, Routine, Sleep, Itching [facility] ondansetron (ZOFRAN (PF)) injection 4 mg 10-03 07:44: 07 Yes 4mg 4 mg, Slow IV Push, Q8HPRN, Starting on Sat10/04/23 at 0144, Until Discontinu ed, Routine, Nausea and Vomiting (N/V) [facility] simethicone (GAS RELIEF (SIMETHICON E)) chewable tablet 160 mg 10-03 07:44: 07 Yes 160mg 160 mg, Oral, PC+HSPRN, Starting on Sat10/04/23 at 0144, Until Discontinu ed, Routine, Gas [facility] docusate (COLACE) capsule 200 mg 10-03 07:44: 07 Yes 200mg 200 mg, Oral, QDAILYPRN, Starting on Sat10/04/23 at 0144, Until Discontinu ed, Routine, Constipati on [facility] magnesium hydroxide (MILK OF MAGNESIA) 400 mg/5 mL suspension 30 mL 10-03 07:44: 07 Yes 30mL 30 mL, Oral, QDAILYPRN, Starting on Sat10/04/23 at 0144, Until Discontinu ed, Routine, Constipati on [facility] benzocaine- menthol (DERMOPLAST ) 20-0.5 % topical spray 10-03 07:44: 07 Yes Topical, PRN, Starting on Sat10/04/23 at 0144, Until Discontinu ed, Routine, Perineum discomfort [facility] FENTanyl PF (SUBLIMAZE (PF)) injection 100 mcg 10-03 00:05: 32 10-03 07:17 :27 No 100ug 100 mcg, Slow IV Push, Q2HPRN, Starting on Sat10/03/23 at 1805, Until Sat10/04/23 at 0117, Routine, Pain (scale 7-10), Pain (scale 4-6) [facility] D5W-LR IV infusion 1,000 mL 10-02 23:13: 12 10-03 07:17 :27 No 1000mL at 1-125 mL/hr, IV Infusion, TITRATE, Starting on Sat10/03/23 at 1713, Until Sat10/04/23 at 0117, Routine [facility] vit no.124/iron /folic ( VITAMIN ORAL) 10-02 17:20: 03 Yes Take by mouth. [facility] vit no.124/iron /folic ( VITAMIN ORAL) 09-11 08:03: 59 Yes Take by mouth. [facility] acetaminoph en (TYLENOL) tablet 1,000 mg 09-11 06:13: 00 09-11 06:24 :00 No 1000mg 1,000 mg, Oral, ONCE, 1 dose, On Sat09/11/23 at 0015, Routine [facility] metroNIDAZO LE (FLAGYL) tablet 500 mg 09-11 06:13: 00 09-11 06:25 :00 No 500mg 500 mg, Oral, ONCE, 1 dose, On Sat09/11/23 at 0015, Routine
Reason for Anti-Infec tive: Documented Infection< br>Documen charlene Infection Site: Other
O ther site: vagina
Duration of Therapy: Other (see Comments) [facility] NaCl 0.9% (NS) IV infusion 1,000 mL 09-11 05:00: 00 09-11 04:28 :00 No 1000mL at 20 mL/hr, IV Infusion, ONCE, 1 dose, On Sat09/10/23 at 2300, Routine [facility] vit no.124/iron /folic ( VITAMIN ORAL) 09-11 00:55: 59 Yes Take by mouth. [facility] metroNIDAZO LE 500 mg tablet 09-11 00:00: 00 10-04 00:00 :00 No [id number] 500mg Take 1 tablet by mouth every 12 (twelve) hours. [facility] NaCl 0.9% (NS) IV infusion 1,000 mL 08-23 10:11: 00 Yes 1000mL at 200 mL/hr, IV Infusion, CONTINUOUS , Starting on Sat08/23/23 at 0415, Until Discontinu ed, Routine [facility] vit no.124/iron /folic ( VITAMIN ORAL) 08-23 07:12: 06 Yes Take by mouth. [facility] acetaminoph en (TYLENOL) tablet 500 mg 08-23 04:47: 36 Yes 500mg 500 mg, Oral, Q6HPRN, Starting on Sat08/22/23 at 2247, Until Discontinu ed, Routine, Pain (scale 4-6) [facility] NaCl 0.9% (NS) IV infusion 1,000 mL 08-23 03:11: 00 08-23 10:24 :27 No 1000mL at 125 mL/hr, IV Infusion, CONTINUOUS , Starting on Sat08/22/23 at 2115, Until Sat08/23/23 at 0424, Routine [facility] vit no.124/iron /folic ( VITAMIN ORAL) 08-16 13:15: 00 Yes Take by mouth. [facility] ampicillin 250 mg capsule 2022-07 00:00: 00 Yes 250mg Take 1 capsule by mouth every 6 (six) hours. [facility] ampicillin 250 mg capsule 2022-07 00:00: 00 05-22 00:00 :00 No 250mg Take 1 capsule by mouth every 6 (six) hours for 7 days. [facility] metroNIDAZO LE (FLAGYL) 500 mg tablet 04-04 00:00: 00 Yes [id number] 500mg Take 1 tablet by mouth every 12 (twelve) hours. [facility] ampicillin 500 mg capsule 04-04 00:00: 00 05-16 00:00 :00 No [id number] 500mg Take 1 capsule by mouth every 6 (six) hours. [facility] metroNIDAZO LE (FLAGYL) 500 mg tablet -11 00:00: 00 03-14 04:59 :00 No [id number] 500mg Take 1 tablet by mouth in the morning and 1 tablet in the evening. Do all this for 5 days. [facility] ondansetron (ZOFRAN) 4 mg tablet -10 00:00: 00 10-04 00:00 :00 No [id number] 4mg Take 1 tablet by mouth every 8 (eight) hours as needed for Nausea and Vomiting (N/V). [facility] NaCl 0.9% (NS) IV infusion 1,000 mL 02-14 01:00: 00 Yes 1000mL at 999 mL/hr, IV Infusion, CONTINUOUS , Starting on Sat02/13/23 at 2000, Until Discontinu ed, Routine [facility] cefdinir (OMNICEF) capsule 300 mg 02-14 00:00: 00 02-14 00:13 :00 No 300mg 300 mg, Oral, ONCE, 1 dose, On Sat02/13/23 at 1900, FRANCISCO
Re ason for Anti-Infec tive: Documented Infection< br>Documen charlene Infection Site: Urine
D uration of Therapy: 7 days [facility] acetaminoph en (TYLENOL) tablet 325 mg 02-13 20:30: 00 02-13 20:30 :00 No 325mg 325 mg, Oral, ONCE, 1 dose, On Sat02/13/23 at 1530, Routine [facility] 26-iron ps-folic-dh a 29 mg iron- 1 mg-200 mg per capsule 02-13 00:00: 00 03-16 04:59 :00 No [id number] 1{capsu le} Take 1 capsule by mouth in the morning for 30 days. [facility] cefdinir 300 mg capsule 02-13 00:00: 00 02-21 04:59 :00 No [id number] 300mg Take 1 capsule by mouth every 12 (twelve) hours for 7 days. [facility] norgestimat e-ethinyl estradioL 0.25-35 mg-mcg per tablet 2021-07 2-02 00:00: 00 03-07 00:00 :00 No [id number] 1{tbl} Take 1 tablet by mouth in the morning. [facility] ondansetron (ZOFRAN-ODT ) disintegrat ing tablet 4 mg 2021-07 15:30: 00 05-18 14:23 :00 No 4mg 4 mg, Oral, ONCE, 1 dose, On Sat05/18/22 at 1030, Routine [facility] ondansetron 4 mg disintegrat ing tablet 2021-07 00:00: 00 03-07 00:00 :00 No [id number] 4mg Take 1 tablet by mouth every 8 (eight) hours as needed for Nausea and Vomiting (N/V). [facility] norgestimat e-ethinyl estradioL 0.25-35 mg-mcg per tablet 6-16 00:00: 00 Yes [id number] 1{tbl} Take 1 tablet by mouth daily. [facility] Immunizations Ordered Immunization Name Filled Immunization Name Date Status Comments Source TDAP 2023-07-19 00:00:00 Completed [facility] HPV9 2018-10-20 00:00:00 Completed [facility] HPV9 2018-10-20 00:00:00 Completed Meningococcal Polysaccharide (groups A, C, Y and W-135) conjugate vaccine (MCV4P) 2018-10-20 00:00:00 Completed HPV9 2018-10-20 00:00:00 Completed [facility] HPV9 2018-10-20 00:00:00 Completed [facility] HPV9 2018-10-20 00:00:00 Completed [facility] HPV9 2018-10-20 00:00:00 Completed [facility] HPV9 2018-10-20 00:00:00 Completed [facility] HPV9 2018-10-20 00:00:00 Completed [facility] HPV9 2018-10-20 00:00:00 Completed [facility] HPV9 2018-10-20 00:00:00 Completed [facility] HPV9 2018-10-20 00:00:00 Completed [facility] HPV9 2018-10-20 00:00:00 Completed [facility] HPV9 2018-10-20 00:00:00 Completed [facility] HPV9 2018-10-20 00:00:00 Completed [facility] HPV9 2018-10-20 00:00:00 Completed [facility] HPV9 2018-10-20 00:00:00 Completed [facility] HPV9 2018-10-20 00:00:00 Completed [facility] HPV9 2018-10-20 00:00:00 Completed [facility] HPV9 2018-10-20 00:00:00 Completed [facility] HPV9 2018-10-20 00:00:00 Completed [facility] HPV9 2018-10-20 00:00:00 Completed [facility] HPV9 2018-10-20 00:00:00 Completed [facility] HPV9 2018-10-20 00:00:00 Completed [facility] HPV9 2018-10-20 00:00:00 Completed [facility] HPV9 2017-04-10 00:00:00 Completed [facility] HPV9 2017-04-10 00:00:00 Completed HPV 2017-04-10 00:00:00 Completed HPV9 2017-04-10 00:00:00 Completed [facility] HPV9 2017-04-10 00:00:00 Completed [facility] HPV9 2017-04-10 00:00:00 Completed [facility] HPV9 2017-04-10 00:00:00 Completed [facility] HPV9 2017-04-10 00:00:00 Completed [facility] HPV9 2017-04-10 00:00:00 Completed [facility] HPV9 2017-04-10 00:00:00 Completed [facility] HPV9 2017-04-10 00:00:00 Completed [facility] HPV9 2017-04-10 00:00:00 Completed [facility] HPV9 2017-04-10 00:00:00 Completed [facility] HPV9 2017-04-10 00:00:00 Completed [facility] HPV9 2017-04-10 00:00:00 Completed [facility] HPV9 2017-04-10 00:00:00 Completed [facility] HPV9 2017-04-10 00:00:00 Completed [facility] HPV9 2017-04-10 00:00:00 Completed [facility] HPV9 2017-04-10 00:00:00 Completed [facility] HPV9 2017-04-10 00:00:00 Completed [facility] HPV9 2017-04-10 00:00:00 Completed [facility] HPV9 2017-04-10 00:00:00 Completed [facility] HPV9 2017-04-10 00:00:00 Completed [facility] HPV9 2017-04-10 00:00:00 Completed [facility] HPV9 2017-04-10 00:00:00 Completed [facility] HPV9 2016-07-16 00:00:00 Completed [facility] HPV9 2016-07-16 00:00:00 Completed [facility] HPV9 2016-07-16 00:00:00 Completed [facility] HPV9 2016-07-16 00:00:00 Completed [facility] HPV9 2016-07-16 00:00:00 Completed [facility] HPV9 2016-07-16 00:00:00 Completed [facility] HPV9 2016-07-16 00:00:00 Completed [facility] HPV9 2016-07-16 00:00:00 Completed [facility] HPV9 2016-07-16 00:00:00 Completed [facility] HPV9 2016-07-16 00:00:00 Completed [facility] HPV9 2016-07-16 00:00:00 Completed [facility] HPV9 2016-07-16 00:00:00 Completed [facility] HPV9 2016-07-16 00:00:00 Completed [facility] HPV9 2016-07-16 00:00:00 Completed [facility] HPV9 2016-07-16 00:00:00 Completed [facility] HPV9 2016-07-16 00:00:00 Completed [facility] HPV9 2016-07-16 00:00:00 Completed [facility] HPV9 2016-07-16 00:00:00 Completed [facility] HPV9 2016-07-16 00:00:00 Completed [facility] HPV9 2016-07-16 00:00:00 Completed [facility] HPV9 2016-07-16 00:00:00 Completed [facility] HPV9 2016-07-16 00:00:00 Completed [facility] HPV9 2016-07-16 00:00:00 Completed [facility] HPV9 2016-07-16 00:00:00 Completed [facility] Influenza Virus Vaccine Quad IM 3+ YRS 2016-05-18 00:00:00 Completed Influenza Virus Vaccine Quad IM 3+ YRS 2015-09-09 00:00:00 Completed HEPATITIS A 2014-03-24 00:00:00 Completed Varicella (varivax)(chicken pox) 2014-03-24 00:00:00 Completed TDAP 2014-03-15 00:00:00 Completed [facility] Meningococcal Polysaccharide (groups A, C, Y and W-135) conjugate vaccine (MCV4P) 2014-03-15 00:00:00 Completed DTaP, Unspecified Formulation 2005-10-23 00:00:00 Completed HEPATITIS A 2005-10-23 00:00:00 Completed MMR 2005-10-23 00:00:00 Completed Pneumococcal 7 Conjugate, PCV7 (Prevnar7) 2005-10-23 00:00:00 Completed IPV 2005-10-23 00:00:00 Completed DTaP, Unspecified Formulation 2004-03-09 00:00:00 Completed Hep B, Adol or Pedi Dosage 2004-03-09 00:00:00 Completed MMR 2004-03-09 00:00:00 Completed IPV 2004-03-09 00:00:00 Completed Varicella (varivax)(chicken pox) 2004-03-09 00:00:00 Completed DTaP, Unspecified Formulation 2001 00:00:00 Completed Hib-HbOC 2001 00:00:00 Completed IPV 2001 00:00:00 Completed DTaP, Unspecified Formulation 2001 00:00:00 Completed Hep B, Adol or Pedi Dosage 2001 00:00:00 Completed Hib-HbOC 2001 00:00:00 Completed IPV 2001 00:00:00 Completed Hep B, Adol or Pedi Dosage 2001 00:00:00 Completed HPV9 Unknown Completed [facility] TDAP Unknown Completed [facility] HPV9 Unknown Completed [facility] TDAP Unknown Completed [facility] HPV9 Unknown Completed [facility] TDAP Unknown Completed [facility] HPV9 Unknown Completed [facility] TDAP Unknown Completed [facility] HPV9 Unknown Completed [facility] TDAP Unknown Completed [facility] HPV9 Unknown Completed [facility] TDAP Unknown Completed [facility] HPV9 Unknown Completed [facility] TDAP Unknown Completed [facility] HPV9 Unknown Completed [facility] TDAP Unknown Completed [facility] HPV9 Unknown Completed [facility] TDAP Unknown Completed [facility] HPV9 Unknown Completed [facility] HPV9 Unknown Completed [facility] HPV9 Unknown Completed [facility] HPV9 Unknown Completed [facility] HPV9 Unknown Completed [facility] HPV9 Unknown Completed [facility] HPV9 Unknown Completed [facility] HPV9 Unknown Completed [facility] [facility] HPV9 Unknown Completed [facility] HPV9 Unknown Completed [facility] HPV9 Unknown Completed [facility] HPV9 Unknown Completed [facility] TDAP Unknown Completed [facility] HPV9 Unknown Completed [facility] TDAP Unknown Completed [facility] HPV9 Unknown Completed [facility] TDAP Unknown Completed [facility] HPV9 Unknown Completed [facility] TDAP Unknown Completed [facility] HPV9 Unknown Completed [facility] TDAP Unknown Completed [facility] HPV9 Unknown Completed [facility] TDAP Unknown Completed [facility] HPV9 Unknown Completed [facility] TDAP Unknown Completed [facility] HPV9 Unknown Completed [facility] TDAP Unknown Completed [facility] HPV9 Unknown Completed [facility] TDAP Unknown Completed [facility] HPV9 Unknown Completed [facility] TDAP Unknown Completed [facility] HPV9 Unknown Completed [facility] TDAP Unknown Completed [facility] HPV9 Unknown Completed [facility] TDAP Unknown Completed [facility] HPV9 Unknown Completed [facility] TDAP Unknown Completed [facility] Vital Signs Vital Name Observation Time Observation Value Comments S ource Systolic blood pressure 2024-05-06 15:54:00 125 mm[Hg] [facility] Diastolic blood pressure 2024-05-06 15:54:00 84 mm[Hg] [facility] Heart rate 2024-05-06 15:54:00 77 /min [facility] Body temperature 2024-05-06 15:54:00 36.28 Paige [facility] Respiratory rate 2024-05-06 15:54:00 18 /min [facility] Body height 2024-05-06 15:54:00 160 cm [facility] Body weight 2024-05-06 15:54:00 74.345 [facility] BMI 2024-05-06 15:54:00 29.03 kg/m2 [facility] Oxygen saturation in Arterial blood by Pulse oximetry 2024-05-06 15:54:00 98 /min [facility] Systolic blood pressure 2023-10-05 14:23:00 97 mm[Hg] [facility] Diastolic blood pressure 2023-10-05 14:23:00 61 mm[Hg] [facility] Heart rate 2023-10-05 14:23:00 79 /min [facility] Body temperature 2023-10-05 14:23:00 36.94 Paige [facility] Respiratory rate 2023-10-05 14:23:00 18 /min [facility] Oxygen saturation in Arterial blood by Pulse oximetry 2023-10-05 14:23:00 100 /min [facility] Body height 2023-10-04 10:00:00 160 cm [facility] Body weight 2023-10-03 20:26:00 70.534 kg [facility] BMI 2023-10-03 20:26:00 27.55 kg/m2 [facility] Systolic blood pressure 2023-09-30 22:20:00 116 mm[Hg] [facility] Diastolic blood pressure 2023-09-30 22:20:00 79 mm[Hg] [facility] Heart rate 2023-09-30 22:20:00 85 /min [facility] Body temperature 2023-09-30 22:20:00 36.33 Paige [facility] Body height 2023-09-30 22:20:00 160 cm [facility] Body weight 2023-09-30 22:20:00 69.219 kg [facility] BMI 2023-09-30 22:20:00 27.03 kg/m2 [facility] Systolic blood pressure 2023-09-24 22:17:00 114 mm[Hg] [facility] Diastolic blood pressure 2023-09-24 22:17:00 80 mm[Hg] [facility] Heart rate 2023-09-24 22:17:00 65 /min [facility] Body height 2023-09-24 22:17:00 160 cm [facility] Body weight 2023-09-24 22:17:00 70.126 kg [facility] BMI 2023-09-24 22:17:00 27.39 kg/m2 [facility] Systolic blood pressure 2023-09-16 18:54:00 107 mm[Hg] [facility] Diastolic blood pressure 2023-09-16 18:54:00 73 mm[Hg] [facility] Heart rate 2023-09-16 18:54:00 83 /min [facility] Body temperature 2023-09-16 18:54:00 36.56 Paige [facility] Respiratory rate 2023-09-16 18:54:00 18 /min [facility] Body height 2023-09-16 18:54:00 160 cm [facility] Body weight 2023-09-16 18:54:00 68.584 kg [facility] BMI 2023-09-16 18:54:00 26.78 kg/m2 [facility] Heart rate 2023-09-11 06:05:00 83 /min [facility] Oxygen saturation in Arterial blood by Pulse oximetry 2023-09-11 06:05:00 100 /min [facility] Systolic blood pressure 2023-09-11 06:00:00 91 mm[Hg] [facility] Diastolic blood pressure 2023-09-11 06:00:00 56 mm[Hg] [facility] Body temperature 2023-09-11 03:35:00 37.06 Paige [facility] Respiratory rate 2023-09-11 03:35:00 16 /min [facility] Body weight 2023-09-11 03:35:00 67.903 kg [facility] BMI 2023-09-11 03:35:00 26.52 kg/m2 [facility] Systolic blood pressure 2023-09-02 18:44:00 104 mm[Hg] [facility] Diastolic blood pressure 2023-09-02 18:44:00 72 mm[Hg] [facility] Heart rate 2023-09-02 18:44:00 97 /min [facility] Body temperature 2023-09-02 18:44:00 36.11 Paige [facility] Respiratory rate 2023-09-02 18:44:00 18 /min [facility] Body height 2023-09-02 18:44:00 160 cm [facility] Body weight 2023-09-02 18:44:00 64.139 kg [facility] BMI 2023-09-02 18:44:00 25.05 kg/m2 [facility] Heart rate 2023-08-23 10:30:00 73 /min [facility] Oxygen saturation in Arterial blood by Pulse oximetry 2023-08-23 10:30:00 99 /min [facility] Systolic blood pressure 2023-08-23 10:14:00 96 mm[Hg] [facility] Diastolic blood pressure 2023-08-23 10:14:00 69 mm[Hg] [facility] Body temperature 2023-08-23 10:14:00 36.44 Paige [facility] Respiratory rate 2023-08-23 10:14:00 18 /min [facility] Systolic blood pressure 2023-08-16 19:14:00 108 mm[Hg] [facility] Diastolic blood pressure 2023-08-16 19:14:00 74 mm[Hg] [facility] Heart rate 2023-08-16 19:14:00 95 /min [facility] Respiratory rate 2023-08-16 19:14:00 18 /min [facility] Body height 2023-08-16 19:14:00 162.6 cm [facility] Body weight 2023-08-16 19:14:00 65.318 kg [facility] BMI 2023-08-16 19:14:00 24.72 kg/m2 [facility] Systolic blood pressure 2023-08-02 19:26:00 107 mm[Hg] [facility] Diastolic blood pressure 2023-08-02 19:26:00 77 mm[Hg] [facility] Heart rate 2023-08-02 19:26:00 82 /min [facility] Body temperature 2023-08-02 19:26:00 36.72 Paige [facility] Respiratory rate 2023-08-02 19:26:00 18 /min [facility] Body height 2023-08-02 19:26:00 160 cm [facility] Body weight 2023-08-02 19:26:00 66.679 [facility] BMI 2023-08-02 19:26:00 26.04 kg/m2 [facility] Systolic blood pressure 2023-07-19 16:07:00 107 mm[Hg] [facility] Diastolic blood pressure 2023-07-19 16:07:00 76 mm[Hg] [facility] Heart rate 2023-07-19 16:07:00 80 /[facility] 2023-07-19 16:07:00 36.94 Paige [facility] Respiratory rate 2023-07-19 16:07:00 18 /min [facility] Body height 2023-07-19 16:07:00 160 cm [facility] Body weight 2023-07-19 16:07:00 63.957 kg [facility] BMI 2023-07-19 16:07:00 24.98 kg/m2 [facility] Systolic blood pressure 2023-06-18 22:23:00 113 mm[Hg] [facility] Diastolic blood pressure 2023-06-18 22:23:00 87 mm[Hg] [facility] Heart rate 2023-06-18 22:23:00 87 /min [facility] Body temperature 2023-06-18 22:23:00 36.89 Paige [facility] Respiratory rate 2023-06-18 22:23:00 16 /min [facility] Body height 2023-06-18 22:23:00 160 cm [facility] Body weight 2023-06-18 22:23:00 63.05 kg [facility] BMI 2023-06-18 22:23:00 24.62 kg/m2 [facility] Systolic blood pressure 2023-05-02 16:58:00 118 mm[Hg] [facility] Diastolic blood pressure 2023-05-02 16:58:00 74 mm[Hg] [facility] Heart rate 2023-05-02 16:58:00 106 /min [facility] Body temperature 2023-05-02 16:58:00 36.61 Paige [facility] Respiratory rate 2023-05-02 16:58:00 16 /min [facility] Body height 2023-05-02 16:58:00 160 cm [facility] Body weight 2023-05-02 16:58:00 62.007 kg [facility] BMI 2023-05-02 16:58:00 24.22 kg/m2 [facility] Systolic blood pressure 2023-04-04 18:17:00 113 mm[Hg] [facility] Diastolic blood pressure 2023-04-04 18:17:00 70 mm[Hg] [facility] Heart rate 2023-04-04 18:17:00 70 /min [facility] Body temperature 2023-04-04 18:17:00 36.72 Paige [facility] Respiratory rate 2023-04-04 18:17:00 16 /min [facility] Body height 2023-04-04 18:17:00 160 cm [facility] Body weight 2023-04-04 18:17:00 58.333 kg [facility] BMI 2023-04-04 18:17:00 22.78 kg/m2 [facility] Systolic blood pressure 2023-03-07 20:27:00 110 mm[Hg] [facility] Diastolic blood pressure 2023-03-07 20:27:00 73 mm[Hg] [facility] Heart rate 2023-03-07 20:27:00 64 /min [facility] Respiratory rate 2023-03-07 20:27:00 18 /min [facility] Body height 2023-03-07 20:27:00 160 cm [facility] Body weight 2023-03-07 20:27:00 59.421 [facility] BMI 2023-03-07 20:27:00 23.21 kg/m2 [facility] Systolic blood pressure 2023-02-14 01:00:00 120 mm[Hg] [facility] Diastolic blood pressure 2023-02-14 01:00:00 79 mm[Hg] [facility] Heart rate 2023-02-14 01:00:00 87 /min [facility] Respiratory rate 2023-02-14 01:00:00 18 /min [facility] Oxygen saturation in Arterial blood by Pulse oximetry 2023-02-14 01:00:00 99 /min [facility] Body temperature 2023-02-13 18:47:00 36.61 Paige [facility] Systolic blood pressure 2023-02-11 15:26:00 122 mm[Hg] [facility] Diastolic blood pressure 2023-02-11 15:26:00 81 mm[Hg] [facility] Heart rate 2023-02-11 15:26:00 75 /min [facility] Body temperature 2023-02-11 15:26:00 36.06 Paige [facility] Respiratory rate 2023-02-11 15:26:00 18 /min [facility] Body height 2023-02-11 15:26:00 160 cm [facility] Body weight 2023-02-11 15:26:00 58.06 kg [facility] BMI 2023-02-11 15:26:00 22.67 kg/m2 [facility] Systolic blood pressure 2023-02-08 09:30:00 113 mm[Hg] [facility] Diastolic blood pressure 2023-02-08 09:30:00 88 mm[Hg] [facility] Heart rate 2023-02-08 09:30:00 79 /min [facility] Respiratory rate 2023-02-08 09:30:00 15 /min [facility] Oxygen saturation in Arterial blood by Pulse oximetry 2023-02-08 09:30:00 95 /min [facility] Body temperature 2023-02-08 07:14:00 37.17 Paige [facility] Body weight 2023-02-08 07:14:00 58.968 kg [facility] BMI 2023-02-08 07:14:00 23.03 kg/m2 [facility] Systolic blood pressure 2022-06-29 20:54:00 119 mm[Hg] [facility] Diastolic blood pressure 2022-06-29 20:54:00 82 mm[Hg] [facility] Heart rate 2022-06-29 20:54:00 78 /min [facility] Body temperature 2022-06-29 20:54:00 37.06 Paige [facility] Respiratory rate 2022-06-29 20:54:00 18 /min [facility] Body height 2022-06-29 20:54:00 160 cm [facility] Body weight 2022-06-29 20:54:00 58.06 kg [facility] BMI 2022-06-29 20:54:00 22.67 kg/m2 [facility] Systolic blood pressure 2022-05-18 14:17:00 106 mm[Hg] [facility] Diastolic blood pressure 2022-05-18 14:17:00 80 mm[Hg] [facility] Heart rate 2022-05-18 14:17:00 78 /min [facility] Body temperature 2022-05-18 14:17:00 36.67 Paige [facility] Respiratory rate 2022-05-18 14:17:00 18 /min [facility] Body height 2022-05-18 14:17:00 160 cm [facility] Body weight 2022-05-18 14:17:00 56.7 [facility] BMI 2022-05-18 14:17:00 22.14 kg/m2 [facility] Oxygen saturation in Arterial blood by Pulse oximetry 2022-05-18 14:17:00 99 /min [facility] Systolic blood pressure 2022-01-11 14:20:00 109 mm[Hg] [facility] Diastolic blood pressure 2022-01-11 14:20:00 71 mm[Hg] [facility] Heart rate 2022-01-11 14:20:00 76 /min [facility] Body temperature 2022-01-11 14:20:00 36.89 Paige [facility] Respiratory rate 2022-01-11 14:20:00 18 /min [facility] Body height 2022-01-11 14:20:00 162.6 cm [facility] Body weight 2022-01-11 14:20:00 61.236 kg [facility] BMI 2022-01-11 14:20:00 23.17 kg/m2 [facility] Procedures Procedure Date / Time Performed Performing Clinician Source CBC WITH DIFF 2023-10-05 09:57:00 Luan Krishnamurthy [facility] HIV 1/2 AG-AB WITH REFLEX 2023-10-03 23:43:00 Rhoda Krishnamurthy [facility] CBC WITH DIFF 2023-10-03 23:39:00 Luan Krishnamurthy [facility] HEPATITIS B SURFACE ANTIGEN 2023-10-03 23:39:00 Rhoda Krihsnamurthy [facility] HB INDIRECT ANTIGLOBULIN TEST 2023-10-03 23:39:00 Sol Krishnamurthysol [facility] RHO (D) IMMUNE GLOBULIN 2023-10-03 23:39:00 Rhoda Dickerson [facility] ADC OR RALPH ONLY - RPR 2023-10-03 23:39:00 Sol Krishnamurthysol [facility] NOTICE OF PRIVACY PRACTICES 2023-10-03 20:19:41 Doctor Unassigned, [place] [facility] CONSENT/REFUSAL FOR DIAGNOSIS AND TREATMENT 2023-10-03 20:16:59 Doctor Unassigned, [place] [facility] ASSIGNMENT OF BENEFITS 2023-10-03 16:15:41 Docto r Unassigned, [place] [facility] POCT URINALYSIS W/O SPECIFIC GRAVITY 2023-09-30 00:00:00 Raghu [facility] POCT URINALYSIS W/O SPECIFIC GRAVITY 2023-09-24 00:00:00 Raghu [facility] POCT URINALYSIS W/O SPECIFIC GRAVITY 2023-09-16 19:09:00 Raghu [facility] ADC CLC OR LCC ONLY - WET PREP 2023-09-11 04:29:00 AdDamaris jimenez [facility] CONSENT/REFUSAL FOR DIAGNOSIS AND TREATMENT 2023-09-11 03:11:06 Doctor Unassigned, [place] [facility] POCT URINALYSIS W/O SPECIFIC GRAVITY 2023-09-02 18:51:00 Raghu [facility] ADC ONLY - FERN TEST 2023-08-23 05:00:00 Raghu [facility] URINALYSIS 2023-08-23 04:59:00 Raghu [facility] ADC CLC OR LCC ONLY - WET PREP 2023-08-23 04:59:00 Raghu [facility] ASSIGNMENT OF BENEFITS 2023-08-23 01:55:19 Docto r Unassigned, [place] [facility] CONSENT/REFUSAL FOR DIAGNOSIS AND TREATMENT 2023-08-23 01:54:52 Doctor Unassigned, [place] [facility] POCT URINALYSIS W/O SPECIFIC GRAVITY 2023-08-16 00:00:00 Raghu [facility] POCT URINALYSIS W/O SPECIFIC GRAVITY 2023-08-02 00:00:00 Raghu [facility] TDAP VACCINE, >11 YRS, IM 2023-07-19 16:32:02 Raghu [facility] POCT URINALYSIS W/O SPECIFIC GRAVITY 2023-07-19 00:00:00 Raghu [facility] POCT URINALYSIS W/O SPECIFIC GRAVITY 2023-06-18 00:00:00 Sol Krishnamurthysol [facility] SECOND AND THIRD TRIMESTER ULTRASOUND 2023-06-04 19:56:00 Sol Krishnamurthysol [facility] URINE CULTURE 2023-05-02 17:05:00 Luan Krishnamurthy [facility] POCT URINALYSIS W/O SPECIFIC GRAVITY 2023-05-02 00:00:00 Raghu Rhoda [facility] SCANNED LAB RESULTS 2023-04-05 05:01:00 Doctor Vianca kincaid, [place] [facility] POCT URINALYSIS W/O SPECIFIC GRAVITY 2023-04-04 00:00:00 Raghu [facility] US OB TRANSVAGINAL 2023-03-07 20:54:56 Shannan Krishnamurthylida [facility] 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 CLINIC ULTRASOUND 2023-03-07 05:01:00 Doctor Unassigned, [place] [facility] POCT TEST 2023-03-07 00:00:00 Raghu Rhoda [facility] POCT URINALYSIS W/O SPECIFIC GRAVITY 2023-03-07 00:00:00 Raghu [facility] ABORH CONFIRMATION (LAB ONLY) 2023-02-13 23:50:[address] [facility] URINALYSIS 2023-02-13 23:29:00 Anna Brown [facility] BASIC METABOLIC PANEL (NA, K, CL, CO2, GLUCOSE, BUN, CREATININE, CA) 2023-02-13 21:01:00 Anna Brown [facility] TOTAL BETA HCG ASSAY 2023-02-13 21:01:00 Marisela Brown [facility] CBC WITH DIFF 2023-02-13 21:01:00 Anna Brown [facility] HB ABO GROUPING 2023-02-13 21:01:00 Anna Brown [facility] CONSENT/REFUSAL FOR DIAGNOSIS AND TREATMENT 2023-02-13 18:38:52 Doctor Unassigned, [place] [facility] POCT TEST 2022-06-29 00:00:00 Kaden Donald [facility] POCT TEST 2022-05-18 14:24:00 Kim Garcia ra [facility] CONSENT/REFUSAL FOR DIAGNOSIS AND TREATMENT 2022-05-18 14:12:43 Doctor Unassigned, [place] [facility] Encounters Start Date/Time End Date/Time Encounter Type Admission Type Attending [facility] Care Facility Care Department Encounter ID Source 2023-08-23 07:12:12 Outpatient X [facility] ED[facility] [id number] [facility] 2025-05-06 10:40:00 2025-05-06 10:40:00 Outpatient R OBI-ABNER , ANGELINA OBI-ABNER , ANGELINA [facility] [id number] [facility] 2024-04-02 00:00:00 2024 18:25:28 Patient Secure Msg Wren-Sol Luciasol [facility] [id number] 350.1.13.10 [id number] [id number] [facility] 2024-05-06 11:15:00 2024-05-06 11:23:04 Outpatient R OBI-ABNER , ANGELINA OBI-ABNER , ANGELINA [facility] [id number] [facility] 2024-05-06 11:15:00 2024-05-06 11:23:04 Diamond Driller Visit 2, Adc Lab Obi-Abner , Angelina 2, Adc Lab [facility] [id number] 350.1.13.10 4.2.7.2.686 [id number] [facility] 2024-05-06 10:00:00 2024-05-06 11:03:20 Office [facility]Abner [facility] [id number] 350.1.13.10 4.2.7.2.686 [id number] [facility] 2024-04-22 10:00:00 2024-04-22 10:00:00 Outpatient R OBI-ABNER , ANGELINA OBI-ABNER , ANGELINA [facility] [id number] [facility] 2023-11-18 16:00:00 2023-11-18 16:00:00 Outpatient R WREN-BETHANY S, RHODA WREN-BETHANY S, RHODA [facility] [id number] [facility] 2023-11-11 13:15:00 2023-11-11 13:15:00 Outpatient R WREN-BETHANY S, RHODA WREN-BETHANY S, RHODA [facility] [id number] [facility] 2023-10-14 00:00:00 2023-10-14 00:00:00 Patient Secure Msg Wren-Bethany s, Rhoda [facility] [id number] 350.1.13.10 4.2.7.2.686 [id number] [facility] 2023-10-03 14:27:00 2023-10-05 11:55:00 Inpatient X WREN-BETHANY S, RHODA WREN-BETHANY S, RHODA [facility] EDIL [id number] [facility] 2023-10-03 14:27:00 2023-10-05 11:55:00 Hospital Encounter Wren-Bethany s, Rhoda [facility] [id number] 350.1.13.10 4.2.7.2.686 [id number] [facility] 2023-10-03 20:01:10 2023-10-03 20:01:10 Anesthesia Event Nicholas Landers [facility] [id number] 350.1.13.10 4.2.7.2.686 [id number] [facility] 2023-10-03 10:15:00 2023-10-03 10:30:00 Diamond Driller Visit Pob, Adc Lab Main Wren-Bethany s Rhoda [facility] 1.20.114 350.1.13.10 4.2.7.2.686 [id number] [facility] 2023-10-03 10:15:00 2023-10-03 10:15:00 Outpatient R WREN-BETHANY S, RHODA WREN-BETHANY S, RHODA [facility] [id number] [facility] 2023-10-03 00:00:00 2023-10-03 00:00:00 Orders Only Doctor Unassigned, [place] [facility] 1.0.114 350.1.13.10 4.2.7.2.686 [id number] [facility] 2023-10-03 00:00:00 2023-10-03 00:00:00 Telephone Holger-Bethany s Rhoda [facility] 1.0.114 350.1.13.10 4.2.7.2.686 [id number] [facility] 2023-09-30 16:00:00 2023-09-30 16:31:50 Outpatient R WREN-BETHANY S, RHODA WREN-BETHANY S, RHODA [facility] [id number] [facility] 2023-09-30 16:00:00 2023-09-30 16:31:50 Routine Visit Wren-Bethany s Rhoda [facility] 1.20.114 350.1.13.10 4.2.7.2.686 [id number] [facility] 2023-09-30 00:00:00 2023-09-30 00:00:00 Patient Secure Msg Doctor Unassigned, [place] [facility] 1.114 350.1.13.10 4.2.7.2.686 [id number] [facility] [facility]-24 16:00:00 2023-09-24 16:28:11 Routine Visit Wren-Bethany s, Rhoda [facility] 1.114 350.1.13.10 4.2.7.2.686 [id number] 134 [id number] [facility] 2023-09-24 16:00:00 2023-09-24 16:28:11 Outpatient R WREN-BETHANY S, RHODA WREN-BETHANY S, RHODA [facility] [id number] [facility] 2023-09-23 14:45:00 2023-09-23 14:45:00 Outpatient R WREN-BETHANY S, RHODA WREN-BETHANY S, RHODA [facility] [id number] [facility] 2023-09-19 00:00:00 2023-09-19 00:00:00 Patient Secure Msg Wren-Bethany s, Rhoda [facility] 1.840.114 350.1.13.10 4.2.7.2.686 [id number] 134 [id number] [facility] 2023-09-16 13:00:00 2023-09-16 13:13:44 Outpatient R WREN-BETHANY S, RHODA WREN-BETHANY S, RHODA [facility] [id number] [facility] 2023-09-16 13:00:00 2023-09-16 13:13:44 Routine Visit Wren-Bethany s, Rhoda [facility] 1.84.114 350.1.13.10 4.2.7.2.686 [id number] [facility] 2023-09-10 21:20:00 2023-09-11 00:26:00 Outpatient X DAMARIS GABRIEL [facility] EDIL [id number] [facility] 2023-09-10 21:20:00 2023-09-11 00:26:00 Emergency Damaris Gabriel [facility] 1.2.840.114 350.1.13.10 4.2.7.2.686 [id number] [facility] 2023-09-02 13:00:00 2023-09-02 14:00:12 Outpatient R WREN-BETHANY S, RHODA WREN-BETHANY S, RHODA [facility] [id number] [facility] 2023-09-02 13:00:00 2023-09-02 14:00:12 Routine Visit Wren-Bethany s, Rhoda Mima Sunen Fadi [facility] 1.2.840.114 350.1.13.10 4.2.7.2.686 [id number] 134 [id number] [facility] 2023-08-28 00:00:00 2023-08-28 00:00:00 Patient Secure Msg Wren-Bethany s, Rhoda [facility] 1.2.840.114 350.1.13.10 4.2.7.2.686 [id number] 134 [id number] [facility] 2023-08-22 19:58:00 2023-08-23 07:08:00 Outpatient X WREN-BETHANY S, RHODA WREN-BETHANY S, RHODA [facility] EDIL [id number] [facility] 2023-08-22 19:58:00 2023-08-23 07:08:00 Emergency Wren-Bethany s, Rhoda [facility] 1.2.840.114 350.1.13.10 4.2.7.2.686 [id number] [facility] 2023-08-22 00:00:00 2023-08-22 00:00:00 Patient Secure Msg Wren-Bethany s, [facility] 1.2.840.114 350.1.13.10 4.2.7.2.686 [id number] [facility] 2023-08-17 00:00:00 2023-08-17 00:00:00 Patient Secure Msg Wren-Bethany s, Rhoda [facility] BU[facility] 1.2.840.114 350.1.13.10 4.2.7.2.686 [id number] 134 [id number] [facility] 2023-08-16 13:30:00 2023-08-16 13:31:39 Outpatient R WREN-BETHANY S, RHODA WREN-BETHANY S, RHODA [facility] [id number] [facility] 2023-08-16 13:30:00 2023-08-16 13:31:39 Routine Visit Wren-Bethany s, Rhoda [facility] 1.2.840.114 350.1.13.10 4.2.7.2.686 [id number] 134 [id number] [facility] 2023-08-09 00:00:00 2023-08-09 00:00:00 Patient Secure Msg Wren-Bethany s, Rhoda [facility] 1.2.840.114 350.1.13.10 4.2.7.2.686 [id number] 134 [id number] [facility] 2023-08-02 13:15:00 2023-08-02 13:45:57 Outpatient R WREN-BETHANY S, RHODA WREN-BETHANY S, RHODA [facility] [id number] [facility] 2023-08-02 13:15:00 2023-08-02 13:45:57 Routine Visit Rhoda Villar [facility] 1.2.840.114 350.1.13.10 4.2.7.2.686 [id number] 134 [id number] [facility] 2023-07-19 10:45:00 2023-07-19 11:00:00 Diamond Driller Visit 2, Adc Lab Rhoda iVllar [facility] 1.2.840.114 350.1.13.10 4.2.7.2.686 [id number] [facility] 2023-07-19 10:45:00 2023-07-19 10:45:00 Outpatient R WREN-BETHANY S, RHOD[facility] [id number] [facility] 2023-07-19 09:45:00 2023-07-19 10:00:00 Routine Visit Zaida sRhoda [facility] 1.2.840.114 350.1.13.10 4.2.7.2.686 [id number] 134 [id number] [facility] 2023-07-16 16:00:00 2023-07-16 16:00:00 Outpatient R WREN-BETHANY S, RHODA WREN-BETHANY S, RHODA [facility] [id number] [facility] 2023-07-16 00:00:00 2023-07-16 00:00:00 Patient Secure Msg Holger-Bethany s, Rhoda [facility] 1.2.840.114 350.1.13.10 4.2.7.2.686 [id number] 134 [id number] [facility] 2023-07-09 08:45:00 2023-07-09 08:45:00 Outpatient R [facility] [id number] [facility] 2023-06-18 16:15:00 2023-06-18 16:33:53 Outpatient R RHODA VILLAR MARISOL [facility] [id number] [facility] 2023-06-18 16:15:00 2023-06-18 16:33:53 Routine Visit Rhoda Villar [facility] 1.2.840.114 350.1.13.10 4.2.7.2.686 [id number] 134 [id number] [facility] 2023-06-17 00:00:00 2023-06-17 00:00:00 Patient Secure Msg Zaida nagy Rhoda [facility] 1.2.840.114 350.1.13.10 4.2.7.2.686 [id number] 134 [id number] [facility] 2023-06-04 13:00:00 2023-06-04 14:00:00 Diamond Driller Visit Ultrasound, Brook Burnette [facility] 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 [facility] 1.2.840.114 350.1.13.10 4.2.7.2.686 [id number] [facility] 2023-06-04 13:00:00 2023-06-04 13:00:00 Outpatient BROOK DOWNING SANGEETA [facility] [id number] [facility] 2023-05-30 13:15:00 2023-05-30 13:15:00 Outpatient R RHODA VILLAR MARISOL [facility] [id number] [facility] 2023-05-22 00:00:00 2023-05-22 00:00:00 Telephone Sol Villarsol [facility] 1.2840.114 350.1.13.10 4.2.7.2.686 [id number] 134 [id number] [facility] 2023-05-06 00:00:00 2023-05-06 00:00:00 Patient Secure Msg Doctor Unassigned, [place] [facility] 1.2840.114 350.1.13.10 4.2.7.2.686 [id number] 134 [id number] [facility] 2023-05-02 11:45:00 2023-05-02 12:06:47 Outpatient R ZAIDA Nagy, RHODA ZAIDA Nagy RHODA [facility] [id number] [facility] 2023-05-02 11:45:00 2023-05-02 12:06:47 Routine Visit Rhoda Villar [facility] 1.2840.114 350.1.13.10 4.2.7.2.686 [id number] 134 [id number] [facility] 2023-04-15 00:00:00 2023-04-15 00:00:00 Telephone Chelle Renteria [facility] 1.2840.114 350.1.13.10 4.2.7.2.686 [id number] 134 [id number] [facility] 2023-04-15 00:00:00 2023-04-15 00:00:00 Patient Secure Msg Doctor Unassigned, [place] [facility] 1.2840.114 350.1.13.10 4.2.7.2.686 [id number] 134 [id number] [facility] 2023-04-09 00:00:00 2023-04-09 00:00:00 Telephone Zaida nagy Rhoda [facility] 1.2840.114 350.1.13.10 4.2.7.2.686 [id number] 134 [id number] [facility] 2023-04-09 00:00:00 2023-04-09 00:00:00 Patient Secure Msg Doctor Unassigned, [place] [facility] 1.2.114 350.1.13.10 4.2.7.2.686 [id number] 134 [id number] [facility] 2023-04-05 11:30:00 2023-04-05 12:02:21 Outpatient R WREN-BETHANY S, RHODA WREN-BETHANY S, [facility] [id number] [facility] 2023-04-05 11:30:00 2023-04-05 12:02:21 Diamond Driller Visit Lab, Alfredo Wren-Bethany s, [facility] 1.84.114 350.1.13.10 4.2.7.2.686 [id number] [facility] 2023-04-05 10:15:00 2023-04-05 10:15:00 Outpatient R [facility] [id number] [facility] 2023-04-05 00:00:00 2023-04-05 00:00:00 Orders Only Doctor Unassigned, [place] [facility] 1.840.114 350.1.13.10 4.2.7.2.686 [id number] [facility] 2023-04-04 13:15:00 2023-04-04 13:36:58 Outpatient R WREN-BETHANY S, RHODA WREN-BETHANY S, [facility] [id number] [facility] 2023-04-04 13:15:00 2023-04-04 13:36:58 Routine Visit Holger-Bethany s Rhoda [facility] 1..114 350.1.13.10 4.2.7.2.686 [id number] 134 [id number] [facility] 2023-04-04 00:00:00 2023-04-04 00:00:00 Case Management Zaida nagy [facility] 1.2.840.114 350.1.13.10 4.2.7.2.686 [id number] 134 [id number] [facility] 2023-04-04 00:00:00 2023-04-04 00:00:00 Telephone [facility] 1.20.114 350.1.13.10 4.2.7.2.686 [id number] 134 [id number] [facility] 2023-04-02 08:30:00 2023-04-02 08:45:00 Diamond Driller Visit Lab, Ang - Db IjeomaBethany s, [facility] 1..840.114 350.1.13.10 4.2.7.2.686 [id number] 353 [id number] [facility] 2023-04-02 08:30:00 2023-04-02 08:30:00 Outpatient R IJEOMABETHANY Yakov [facility] [id number] [facility] 2023-03-29 16:00:00 2023-03-29 16:00:00 Outpatient R [facility] [id number] [facility] 2023-03-26 00:00:00 2023-03-26 00:00:00 Telephone Zaida nagy [facility] 1.284.114 350.1.13.10 4.2.7.2.686 [id number] 134 [id number] [facility] 2023-03-08 00:00:00 2023-03-08 00:00:00 Telephone WrenManjui yakov [facility] 1.20.114 350.1.13.10 4.2.7.2.686 [id number] 134 [id number] [facility] 2023-03-08 00:00:00 2023-03-08 00:00:00 Patient Secure Msg Doctor Unassigned, [place] [facility] 1.2.840.114 350.1.13.10 4.2.7.2.686 [id number] 134 [id number] [facility] 2023-03-07 15:00:00 2023-03-07 15:51:03 Outpatient R ZAIDA S, RHODA HOLGER-BETHANY S, RHODA [facility] [id number] [facility] 2023-03-07 15:00:00 2023-03-07 15:51:03 Initial Visit Rhoda Villar [facility] 1.2.840.114 350.1.13.10 4.2.7.2.686 [id number] 134 [id number] [facility] 2023-03-07 00:00:00 2023-03-07 00:00:00 Orders Only Doctor Unassigned, [place] [facility] 1.2.840.114 350.1.13.10 4.2.7.2.686 [id number] [facility] 2023-02-25 09:45:00 2023-02-25 09:45:00 Outpatient R [facility] [id number] [facility] 2023-02-15 09:00:00 2023-02-15 09:00:00 Outpatient R HOLGER-BETHANY S, RHODA HOLGER-BETHANY S RHODA [facility] [id number] [facility] 2023-02-14 08:00:00 2023-02-14 08:00:00 Outpatient R [facility] [id number] [facility] 2023-02-14 00:00:00 2023-02-14 00:00:00 Telephone Beck, Mery [facility] 1.2.840.114 350.1.13.10 4.2.7.2.686 [id number] [facility] 2023-02-13 13:50:00 2023-02-13 20:24:[address] CHARLES [facility] ERT [id number] [facility] 2023-02-13 13:50:00 2023-02-13 20:24:[address] [facility] 1.2840.114 350.1.13.10 4.2.7.2.686 [id number] [facility] 2023-02-13 13:01:00 2023-02-13 13:14:00 Emergency X [facility] ERT [id number] [facility] 2023-02-12 08:45:00 2023-02-12 08:45:00 Outpatient P [facility] [id number] [facility] 2023-02-12 00:00:00 2023-02-12 00:00:00 Telephone [facility] 1.2.840.114 350.1.13.10 4.2.7.2.686 [id number] [facility] 2023-02-12 00:00:00 2023-02-12 00:00:00 Telephone [facility] 1.2.840.114 350.1.13.10 4.2.7.2.686 [id number] [facility] 2023-02-12 00:00:00 2023-02-12 00:00:00 Telephone [facility] 1.2.840.114 350.1.13.10 4.2.7.2.686 [id number] [facility] 2023-02-11 13:45:00 2023-02-11 14:00:00 Diamond Driller Visit [facility] 1.2.840.114 350.1.13.10 4.2.7.2.686 [id number] [facility] 2023-02-11 10:15:00 2023-02-11 11:12:25 Outpatient R MARYLOUCHARITYSONIA [facility] [id number] [facility] 2023-02-11 10:15:00 2023-02-11 11:12:25 Routine Visit Trimester, [facility] 1.2840.114 350.1.13.10 4.2.7.2.686 [id number] [facility] 2023-02-11 00:00:00 2023-02-11 00:00:00 [facility] 1.2840.114 350.1.13.10 4.2.7.2.686 [id number] [facility] 2023-02-08 02:15:00 2023-02-08 04:47:00 [facility] [id number] [facility] 2023-02-08 02:15:00 2023-02-08 04:47:00 Emergency [facility] 1.2840.114 350.1.13.10 4.2.7.2.686 [id number] [facility] 2023-01-24 15:00:00 2023-01-24 15:00:00 Outpatient RHODA LAZCANO MARISOL [facility] [id number] [facility] 2023-01-15 09:45:00 2023-01-15 09:45:00 Outpatient WILIAM MINAYA [facility] [id number] [facility] 2023-01-11 10:00:00 2023-01-11 10:00:00 Outpatient R WREN-BETHANY S, RHODA WREN-BETHANY S, RHODA [facility] [id number] [facility] 2022-09-21 13:00:00 2022-09-21 13:00:00 Outpatient R [facility] [id number] [facility] 2022-06-29 14:15:00 2022-06-29 15:02:15 Outpatient R KENIA DONALD [facility] [id number] [facility] 2022-06-29 14:15:00 2022-06-29 15:02:15 Initial Visit Casie [facility] 1.840.114 350.1.13.10 4.2.7.2.686 [id number] [facility] 2022-05-18 09:18:00 2022-05-18 09:56:00 Emergency Mona Garcia [facility] 1.840.114 350.1.13.10 4.2.7.2.686 [id number] [facility] 2022-05-18 09:18:00 2022-05-18 09:56:00 Emergency X MONA GARCIA [facility] ERT [id number] [facility] 2022-02-12 13:15:00 2022-02-12 13:15:00 Outpatient R TRACE SCHMID [facility] [id number] [facility] 2022-01-11 09:00:00 2022-01-11 09:43:54 Office Visit Aster Hernandez [facility] 1..114 350.1.13.10 4.2.7.2.686 [id number] 134 [id number] [facility] 2022-01-11 09:00:00 2022-01-11 09:43:54 Outpatient ASTER LAGUNA [facility] [id number] [facility] 2022-01-11 09:00:00 2022-01-11 09:00:00 Outpatient ASTER LAGUNA [facility] [id number] [facility] 2022-01-10 13:15:00 2022-01-10 13:15:00 Outpatient MARISELA GALDAMEZNIRAVGEMINI [facility] [id number] [facility] 2022-01-10 13:15:00 2022-01-10 13:15:00 Outpatient MARISELA GALDAMEZNIRAVGEMIIN [facility] [id number] [facility] 2022-01-09 14:00:00 2022-01-09 14:30:32 Office Visit Trace Schmid [facility] 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 [facility] MATERNAL & CHILD HEALTH [facility] 1..840.114 350.1.13.10 4.2.7.2.686 [id number] [facility] 2022-01-09 14:00:00 2022-01-09 14:30:32 Outpatient TRACE GALDAMEZ [facility] [id number] [facility] 2022-01-09 14:00:00 2022-01-09 14:30:32 Outpatient TRACE GALDAMEZ [facility] [id number] [facility] 2022-01-09 00:00:00 2022-01-09 00:00:00 Orders Only Doctor Unassigned, [place] [facility] 1..840.114 350.1.13.10 4.2.7.2.686 [id number] [facility] 2021-11-14 09:30:00 2021-11-14 09:30:00 Outpatient ASTER LAGUNA [facility] [id number] [facility] Results Test Description Test Time Test Comments Results Result Co [facility]ALPH ONLY - [id number] 16:25:14* Test Item Value Reference Range Interpretation Comme nts RPR (Qualitative) (test code = 78042-5) Nonreactive Nonreactive Lab Interpretation (test cod e = 95186-3) Normal [facility] IMMUNE [id number] 14:35:17* Test Item Value Reference Range Interpretation Comme nts RHIG CANDIDATE? (test code = 5188) No- see comment Patient is not a candidate for RhIg- Patient is Rh Positive.Performed at [facility] Laboratory Services - [facility] Blood [id number] [place] [id number] Free: [phone] No. [id number] [facility]aleHepatitis B Surface [id number] 10:09:19 * Test Item Value Reference Range Interpretation Comme nts HBsAg Semi-Quantitative (neeru t code = 5195-3) 0.04 Negative [facility]/2 Ag-Ab with [id number] 02:29:20* Test Item Value Reference Range Interpretation Comme nts HIV Semi-quantitative (test code = 94328-5) 0.08 Negative SONALI (test code = SONALI) Non-reactive for HIV-1 antigen and HIV-1/HIV-2 antibodies. ?No laboratory evidence of HIV infection. ?Repeat in 2-4 weeks if acute HIV infection is suspected. [facility] with [id number] 00:32:44* Test Item Value Reference Range Interpretation Comme nts WBC (test code = 6690-2) 10.56 4.30-11.10 RBC (test code = 789-8) 3.96 3.93-5.25 HGB (test code = 718-7) 11.4 g/dL 11.6-15.0 L HCT (test code = 4544-3) 33.1 % 35.7-45.2 L MCV (test code = 787-2) 83.6 fL 80.6-95.5 MCH (test code = 785-6) 28.8 pg 25.9-32.8 MCHC (test code = 786-4) 34.4 g/dL 31.6-35.1 RDW-SD (test code = 82240-7) 42.6 fL 39.0-49.9 RDW-CV (test code = 788-0) 14.2 % 12.0-15.5 PLT (test code = 777-3) 412 166-358 H MPV (test code = 13582-0) 9.3 fL 9.5-12.9 L NRBC/100 WBC (test code = 2693528235) 0.0 0.0-10.0 NRBC x10^3 (test code = 3644375205) See_Comment [Automated messa ge] The system which generated this result transmitted reference range: 10*3/?L. The reference range was not used to interpret this result as normal/abnormal. GRAN MAT (NEUT) % (test code = 770-8) 73.4 % IMM GRAN % (test code = 5822010178) 1.10 % LYMPH % (test code = 736-9) 18.6 % MONO % (test code = 5905-5) 5.5 % EOS % (test code = 713-8) 0.9 % BASO % (test code = 706-2) 0.5 % GRAN MAT x10^3(ANC) (test code = 0912343812) 7.75 10*3/uL 1.88-7.09 H IMM GRAN x10^3 (test code = 7510678490) 0.12 10*3/uL 0.00-0.06 H LYMPH x10^3 (test code = 731-0) 1.96 10*3/uL 1.32-3.29 MONO x10^3 (test code = 742-7) 0.58 10*3/uL 0.33-0.92 EOS x10^3 (test code = 711-2) 0.10 10*3/uL 0.03-0.39 BASO x10^3 (test code = 704-7) 0.05 10*3/uL 0.01-0.07 Lab Interpretation (test code = 18459-1) Abnormal [facility] and Screen - ONCE [id number] 00:27:00 * Test Item Value Reference Range Interpretation Comme nts ABO & RH (test code = 20) O POSITIVE IAT (test code = 1185) Negative General acute hospital Urinalysis w/o Specific [id number] 22:18:00* Test Item Value Reference Range Interpretation Comme nts POCT PH U (test code = 3254) n/a 5-8 POCT U LEUK EST (test code = 3263) n/a Negative - Negative POCT U NIT (test code = 3262) n/a Negative - Negati ve POCT U PROT (test code = 3259) Negative Negative - Negat sachi POCT U GLU (test code = 3256) Normal Negative - Negati ve POCT U KETONE (test code = 3258) n/a Negative - Neg ative POCT U BLD (test code = 3257) n/a Negative - Negati ve General acute hospital Urinalysis w/o Specific [id number] 22:18:00* Test Item Value Reference Range Interpretation Comme nts POCT PH U (test code = 3254) n/a 5-8 POCT U LEUK EST (test code = 3263) n/a Negative - Negative POCT U NIT (test code = 3262) n/a Negative - Negati ve POCT U PROT (test code = 3259) negative Negative - Negat sachi POCT U GLU (test code = 3256) negative Negative - Negati ve POCT U KETONE (test code = 3258) n/a Negative - Neg ative POCT U BLD (test code = 3257) n/a Negative - Negati ve General acute hospital Urinalysis w/o Specific [id number] 19:11:00* Test Item Value Reference Range Interpretation Comme nts POCT PH U (test code = 3254) na 5-8 POCT U LEUK EST (test code = 3263) na Negative - Negative POCT U NIT (test code = 3262) na Negative - Negative POCT U PROT (test code = 3259) negative Negative - Negative POCT U GLU (test code = 3256) negative Negative - Negative POCT U KETONE (test code = 3258) na Negative - Negative POCT U BLD (test code = 3257) na Negative - Negative SONALI (test code = SONALI) accurate developme nt and interpretation of all internal controls Lab Interpretation (test code = 45402-5) [facility] Urinalysis w/o Specific [id number] 18:52:00* Test Item Value Reference Range Interpretation Comme nts POCT PH U (test code = 3254) na 5-8 POCT U LEUK EST (test code = 3263) na Negative - Negative POCT U NIT (test code = 3262) na Negative - Negative POCT U PROT (test code = 3259) negative Negative - Negative POCT U GLU (test code = 3256) negative Negative - Negative POCT U KETONE (test code = 3258) na Negative - Negative POCT U BLD (test code = 3257) na Negative - Negative SONALI (test code = SONALI) accurate developme nt and interpretation of all internal controls Lab Interpretation (test code = 10083-8) [facility] Urinalysis w/o Specific [id number] 19:22:00* Test Item Value Reference Range Interpretation Comme nts POCT PH U (test code = 3254) N/A 5-8 POCT U LEUK EST (test code = 3263) N/A Negative - Negative POCT U NIT (test code = 3262) N/A Negative - Negati ve POCT U PROT (test code = 3259) Negative Negative - Negat sachi POCT U GLU (test code = 3256) Negative Negative - Negati ve POCT U KETONE (test code = 3258) N/A Negative - Neg ative POCT U BLD (test code = 3257) N/A Negative - Negati ve General acute hospital Urinalysis w/o Specific [id number] 19:38:00* Test Item Value Reference Range Interpretation Comme nts POCT PH U (test code = 3254) n/a 5-8 POCT U LEUK EST (test code = 3263) n/a Negative - N egative POCT U NIT (test code = 3262) n/a Negative - Negati ve POCT U PROT (test code = 3259) neg Negative - Negat sachi POCT U GLU (test code = 3256) neg Negative - Negati ve POCT U KETONE (test code = 3258) n/a Negative - Neg ative POCT U BLD (test code = 3257) n/a Negative - Negati ve General acute hospital Urinalysis w/o Specific [id number] 16:19:00* Test Item Value Reference Range Interpretation Comme nts POCT PH U (test code = 3254) n/a 5-8 POCT U LEUK EST (test code = 3263) n/a Negative - N egative POCT U NIT (test code = 3262) n/a Negative - Negati ve POCT U PROT (test code = 3259) neg Negative - Negat sachi POCT U GLU (test code = 3256) neg Negative - Negati ve POCT U KETONE (test code = 3258) n/a Negative - Neg ative POCT U BLD (test code = 3257) n/a Negative - Negati ve General acute hospital Urinalysis w/o Specific [id number] 16:19:00* Test Item Value Reference Range Interpretation Comme nts POCT PH U (test code = 3254) n/a 5-8 POCT U LEUK EST (test code = 3263) n/a Negative - N egative POCT U NIT (test code = 3262) n/a Negative - Negati ve POCT U PROT (test code = 3259) neg Negative - Negat sachi POCT U GLU (test code = 3256) neg Negative - Negati ve POCT U KETONE (test code = 3258) n/a Negative - Neg ative POCT U BLD (test code = 3257) n/a Negative - Negati ve General acute hospital URINALYSIS W/O SPECIFIC [id number] 22:20:00* Test Item Value Reference Range Interpretation Comme nts POCT PH U (test code = 3254) n/a 5-8 POCT U LEUK EST (test code = 3263) n/a Negative - Negative POCT U NIT (test code = 3262) n/a Negative - Negati ve POCT U PROT (test code = 3259) negative Negative - Negat sachi POCT U GLU (test code = 3256) negative Negative - Negati ve POCT U KETONE (test code = 3258) n/a Negative - Neg ative POCT U BLD (test code = 3257) n/a Negative - Negati ve General acute hospital URINALYSIS W/O SPECIFIC [id number] 16:58:00* Test Item Value Reference Range Interpretation Comme nts POCT PH U (test code = 3254) n/a 5-8 POCT U LEUK EST (test code = 3263) n/a Negative - Negative POCT U NIT (test code = 3262) n/a Negative - Negati ve POCT U PROT (test code = 3259) negative Negative - Negat sachi POCT U GLU (test code = 3256) negative Negative - Negati ve POCT U KETONE (test code = 3258) n/a Negative - Neg ative POCT U BLD (test code = 3257) n/a Negative - Negati ve General acute hospital URINALYSIS W/O SPECIFIC [id number] 16:58:00* Test Item Value Reference Range Interpretation Comme nts POCT PH U (test code = 3254) n/a 5-8 POCT U LEUK EST (test code = 3263) n/a Negative - Negative POCT U NIT (test code = 3262) n/a Negative - Negati ve POCT U PROT (test code = 3259) negative Negative - Negat sachi POCT U GLU (test code = 3256) negative Negative - Negati ve POCT U KETONE (test code = 3258) n/a Negative - Neg ative POCT U BLD (test code = 3257) n/a Negative - Negati ve General acute hospital URINALYSIS W/O SPECIFIC [id number] 18:14:00* Test Item Value Reference Range Interpretation Comme nts POCT PH U (test code = 3254) n/a 5-8 POCT U LEUK EST (test code = 3263) n/a Negative - Negative POCT U NIT (test code = 3262) n/a Negative - Negati ve POCT U PROT (test code = 3259) negative Negative - Negat sachi POCT U GLU (test code = 3256) negative Negative - Negati ve POCT U KETONE (test code = 3258) n/a Negative - Neg ative POCT U BLD (test code = 3257) n/a Negative - Negati ve General acute hospital URINALYSIS W/O SPECIFIC [id number] 18:14:00* Test Item Value Reference Range Interpretation Comme nts POCT PH U (test code = 3254) n/a 5-8 POCT U LEUK EST (test code = 3263) n/a Negative - Negative POCT U NIT (test code = 3262) n/a Negative - Negati ve POCT U PROT (test code = 3259) negative Negative - Negat sachi POCT U GLU (test code = 3256) negative Negative - Negati ve POCT U KETONE (test code = 3258) n/a Negative - Neg ative POCT U BLD (test code = 3257) n/a Negative - Negati ve General acute hospital URINALYSIS W/O SPECIFIC [id number] 20:44:00* Test Item Value Reference Range Interpretation Comme nts POCT PH U (test code = 3254) N/A 5-8 POCT U LEUK EST (test code = 3263) N/A Negative - Negative POCT U NIT (test code = 3262) N/A Negative - Negati ve POCT U PROT (test code = 3259) Negative Negative - Negat sachi POCT U GLU (test code = 3256) Negative Negative - Negati ve POCT U KETONE (test code = 3258) N/A Negative - Neg ative POCT U BLD (test code = 3257) N/A Negative - Negati ve [facility] [id number] 20:43:00* Test Item Value Reference Range Interpretation Comme nts POCT PREG (test code = 1605) Positive On board controls acceptable with C Line (test code = 3574) Yes POCT PREG LOT # (test code = 3575) POCT PREG TEST DATE ( test code = 3576) [facility] Confirmation (Lab Only)2023-02-13 23:59:00* Test Item Value Reference Range Interpretation Comme nts ABO & RH (test code = 20) O Positive [facility] BETA HCG [id number] 22:07:06* Test Item Value Reference Range Interpretation Comme nts BETA HCG (test code = 6895241388) 19171.00 See_Comment [Automated messa ge] The system which generated this result transmitted reference range: Non- female and male patients: <5 mIU/mL. The reference range was not used to interpret this result as normal/abnormal. SONALI (test code = SONALI) Gestational Age ?Range (mIU/mL) 1-10 ?Weeks ?[id number] Weeks ?[id number] Weeks ?8014-44407208-42 Weeks ?3948-313814 Biotin has been reported to cause a negative bias, interpret results relative to patient's use of biotin. [facility] METABOLIC PANEL (NA, K, CL, CO2, GLUCOSE, BUN, CREATININE, CA)2023-02-13 21:29:48* Test Item Value Reference Range Interpretation Comme nts NA (test code = 6664818667) 136 mmol/L 135-145 K (test code = 3530958050) 3.9 mmol/L 3.5-5.0 CL (test code = 1134222393) 107 mmol/L 98-108 CO2 TOTAL (test code = 6504029899) 23 mmol/L 23-31 AGAP (test code = 5664397973) 6 2-16 BUN (test code = 3205741684) 9 mg/dL 7-23 GLUCOSE (test code = 4501741319) 80 mg/dL 70-110 CREATININE (test code = 3587711039) 0.45 mg/dL 0.50-1.04 L CALCIUM (test code = 1234022856) 8.9 mg/dL 8.6-10.6 eGFR (test code = 5087814764) 175.9 mL/min/1.73m2 SONALI (test code = SONALI) Association of [...] or abnormalities in imaging tests). Lab Interpretation (test code = 83822-1) Abnormal [facility] WITH [id number] 21:21:23* Test Item Value Reference Range Interpretation Comme nts WBC (test code = 6690-2) 7.74 See_Comment [Automated [employer]] The system which generated this result transmitted reference range: 4.30 - 11.10 10*3/?L. The reference range was not used to interpret this result as normal/abnormal. RBC (test code = 789-8) 4.32 See_Comment [[employer]] The system which generated this result transmitted reference range: 3.93 - 5.25 10*6/?L. The reference range was not used to interpret this result as normal/abnormal. HGB (test code = 718-7) 13.3 g/dL 11.6-15.0 HCT (test code = 4544-3) 36.0 % 35.7-45.2 MCV (test code = 787-2) 83.3 fL 80.6-95.5 MCH (test code = 785-6) 30.8 pg 25.9-32.8 MCHC (test code = 786-4) 36.9 g/dL 31.6-35.1 H RDW-SD (test code = 69897-9) 38.4 fL 39.0-49.9 L RDW-CV (test code = 788-0) 12.5 % 12.0-15.5 PLT (test code = 777-3) 451 See_Comment H [Automated Answer.[employer]] The system which generated this result transmitted reference range: 166 - 358 10*3/?L. The reference range was not used to interpret this result as normal/abnormal. MPV (test code = 82154-4) 8.5 fL 9.5-12.9 L IPF % (test code = 8205019345) 1.0 % 1.3-7.7 L Platelet count measured by fluorescence method. NRBC/100 WBC (test code = 8948908300) 0.0 See_Comment [Automated [employer]] The system which generated this result transmitted reference range: 0.0 - 10.0 /100 WBCs. The reference range was not used to interpret this result as normal/abnormal. NRBC x10^3 (test code = 3230184659) See_Comment [Automated Answer[employer]] The system which generated this result transmitted reference range: 10*3/?L. The reference range was not used to interpret this result as normal/abnormal. GRAN MAT (NEUT) % (test code = 770-8) 51.3 % IMM GRAN % (test code = 9694885047) 0.40 % LYMPH % (test code = 736-9) 41.7 % MONO % (test code = 5905-5) 4.9 % EOS % (test code = 713-8) 1.3 % BASO % (test code = 706-2) 0.4 % GRAN MAT x10^3(ANC) (test code = 2263586096) 3.97 10*3/uL 1.88-7.09 IMM GRAN x10^3 (test code = 3920967727) 0.03 10*3/uL 0.00-0.06 LYMPH x10^3 (test code = 731-0) 3.23 10*3/uL 1.32-3.29 MONO x10^3 (test code = 742-7) 0.38 10*3/uL 0.33-0.92 EOS x10^3 (test code = 711-2) 0.10 10*3/uL 0.03-0.39 BASO x10^3 (test code = 704-7) 0.03 10*3/uL 0.01-0.07 Lab Interpretation (test code = 81816-6) [facility]normal [facility] - ONCE [id number] 21:14:00 * Test Item Value Reference Range Interpretation Comme nts ABO & RH (test code = 20) O POSITIVE IAT (test code = 1185) Negative [facility] [id number] 20:09:00* Test Item Value Reference Range Interpretation Comme nts POCT PREG (test code = 1605) Negative Not recorded per staff On board controls acceptable with C Line (test code = 3574) Yes POCT PREG LOT # (test code = 3575) POCT PREG TEST DATE (test code = 3576) [facility] [id number] 14:24:00* Test Item Value Reference Range Interpretation Comme nts POCT PREG (test code = 1605) negative On board controls acceptable with C Line (test code = 3574) present POCT PREG LOT # (test code = 3575) [id number] POCT PREG TEST DATE ( test code = 3576) 09-26-2023 Lab Interpretation (test cod e = 18433-5) Normal [facility] History and Physical Notes Date/Time Note Provider Source 2023-10-03 17:22:19 ANTEPARTUM HISTORY & PHYSICAL IDENTIFYING DATA Marie Engel is 23 year old, /White, 39w0d, female with THERON 10/10/2023, by Last Menstrual Period. : 2000 [facility] Day: 1 CHIEF COMPLAINT contractions HISTORY OF PRESENT ILLNESS 23 year old @39w0d presents with painful contractions. Denies VB or LOF PAST OBSTETRIC HISTORY OB History Para Term AB Living 4 1 1 0 2 1 SAB IAB Ectopic Multiple Live Births 2 0 0 0 1 # Outcome Date GA Lbr Wally/2nd Weight Sex Delivery Anes PTL Lv 4 Current 3 12/2022 2 2021 1 Term 03/02/18 40w0d 4167 g M Vag-Spont JAYSON PAST MEDICAL HISTORY Problem list: Patient Active Problem List Diagnosis Date Noted Normal labor 10/03/2023 39 weeks gestation of 10/03/2023 ASB (asymptomatic bacteriuria) 04/04/2023 High-risk in third trimester 04/04/2023 Rubella non-immune status, antepartum 04/04/2023 Low TSH level 12/09/2018 Operations: No past surgical history on file. Prior surgeries at outside hospitals: none Past Medical History: Diagnosis Date Anemia resolved Anxiety ongoing, not on medication Asthma ongoing, has rescue inhaler Cancer Screening examination for STD (sexually transmitted disease) CURRENT HEALTH STATUS Medications: Current Facility-Administered Medications Medication Dose Route Frequency Last Rate Last Admin carboprost (HEMABATE) injection 250 mcg 250 mcg Intramuscular Q2HPRN D5W-LR IV infusion 1,000 mL 1,000 mL IV Infusion TITRATE lactated ringers IV infusion 500 mL 500 mL IV Infusion PRN - SEE INSTRUCTIONS lidocaine 1% (PF) (XYLOCAINE) injection 0.3 mL 0.3 mL Infiltration PRN - SEE INSTRUCTIONS lidocaine 1% (XYLOCAINE) 10 mg/mL (1 %) injection 50 mL 50 mL Infiltration PRN - SEE INSTRUCTIONS methylergonovine (METHERGINE) injection 0.2 mg 0.2 mg Intramuscular Q4HPRN miSOPROStoL (CYTOTEC) tablet 200 mcg 200 mcg Rectal PRN oxytocin (PITOCIN) 30 units in NS 500 mL IV infusion 600 mL/hr IV Infusion PRN oxytocin (PITOCIN) 30 units in NS 500 mL IV infusion 2-40 khushbu-units/min IV Infusion TITRATE sodium citrate-citric acid (BICITRA) 500-334 mg/5 mL solution 30 mL 30 mL Oral PRE-PROCEDURE ONCE tranexamic acid (CYKLOKAPRON) 1,000 mg in NaCl 0.9% (NS) 250 mL piggyback 1,000 mg IV Piggyback PRN Allergies and drug reactions: Patient has no known allergies. HOME MEDICATIONS Medications Prior to Admission Medication Sig Dispense Refill Last Dose metroNIDAZOLE 500 mg tablet Take 1 tablet by mouth every 12 (twelve) hours. 13 tablet 0 Not Taking vit no.124/iron/folic ( VITAMIN ORAL) Take by mouth. Taking ondansetron (ZOFRAN) 4 mg tablet Take 1 tablet by mouth every 8 (eight) hours as needed for Nausea and Vomiting (N/V). 20 tablet 1 Not Taking Last taken: none SOCIAL HISTORY Tobacco History: Social History Tobacco Use Smoking Status Never Smokeless Tobacco Never Drug History: Social History Substance and Sexual Activity Drug Use Never Alcohol History: Social History Substance and Sexual Activity Alcohol Use Not Currently Alcohol/week: 3.0 standard drinks of alcohol Types: 3 Cans of beer per week FAMILY HISTORY Family History Problem Relation Age of Onset Arthritis Mother Depression Mother Diabetes Mother Hypertension Mother High cholesterol Mother Hypertension Father Diabetes Father Diabetes Sister High cholesterol Sister Asthma Sister Asthma Sister Asthma Sister Asthma Sister Asthma Brother Diabetes Maternal Grandmother REVIEW OF SYSTEMS General: negative Constitutional: weight gain Eyes: negative ENT/Mouth: negative Cardiovascular: negative Respiratory: negative Gastrointestinal:pain Genitourinary: pelvic pain Musculoskeletal: negative Skin/breast: negative Neurological: negative Psychiatric: negative Endocrine: negative Hemat/Lymph: negative Allergic/Immuno:none VITAL SIGNS BP: (110-126)/(75-84) Temp: [36.3 ?C (97.4 ?F)-37 ?C (98.6 ?F)] Temp source: Axillary (10/02 1652) Pulse: [84-105] Resp: [16-22] SpO2: [99 %-100 %] Height: -- Weight: [70.5 kg (155 lb 8 oz)] BMI (calculated): [0] PHYSICAL EXAMINATIONS General: well-developed, well-nourished Lungs: clear to auscultation bilaterally Cardiology: regular rate and rhythm Abdomen: tenderness - normal : OB pelvic exam performed? Yes. Dilation - 3 cm Effacement - 80% % Station - -3 Presentation (fetus 1) - vertex Extremities: no clubbing, cyanosis, or edema Neuro: cranial nerves II through XII grossly intact; sensation grossly intact; muscle strength 5 out of 5 in all four extremities REVIEW OF LABORATORY, PATHOLOGY, AND RADIOLOGY DATA Lab results: CBC BMP PT/INR WBC (10*3/?L) Date Value 10/03/2023 8.50 NA (mmol/L) Date Value 02/13/2023 136 No results found for: "PT" RBC (10*6/?L) Date Value 10/03/2023 3.61 (L) K (mmol/L) Date Value 02/13/2023 3.9 No results found for: "PTINR" PLT (10*3/?L) Date Value 10/03/2023 384 (H) CALCIUM (mg/dL) Date Value 02/13/2023 8.9 HGB (g/dL) Date Value 10/03/2023 10.7 (L) CL (mmol/L) Date Value 02/13/2023 107 aPTT HCT (%) Date Value 10/03/2023 30.0 (L) BUN (mg/dL) Date Value 02/13/2023 9 No results found for: "APTTPAT" CREATININE (mg/dL) Date Value 02/13/2023 0.45 (L) GLUCOSE (mg/dL) Date Value 02/13/2023 80 CO2 TOTAL (mmol/L) Date Value 02/13/2023 23 Type & Screen Rubella Varicella ABO & RH (no units) Date Value 07/19/2023 O Positive Rubella screen IgG (no units) Date Value 04/02/2023 Negative No results found for: "VZVG" No results found for: "TSABINT" Hep B HIV Syphilis No results found for: "HBS" No results found for: "HIV" No results found for: "SYPG" Group B Strep Chlamydia No results found for: "CGBS" C. trachomatis Nucleic Acid (no units) Date Value 09/10/2023 Negative X-ray results: none Placenta Accreta Screening Prior ? : No Prior Uterine Surgery?: No Placenta low lying/previa in current ? : No Screening outcome: A positive screening outcome indicates a history of prior delivery or prior uterine surgery, AND the presence of either a placenta low lying/previa or ultrasound suspicion of PASD in the current . Negative screening. DELIVERY PLAN vaginal HEART RATE 120 reactive and reassuring ASSESSMENT AND PLAN 23 year old @39w0d In labor Admit to L&D Epidural as desired Reassuring status Rhoda Krishnamurthy MD [facility] - Health Notes Date/Time Note Provider Source 2024-05-06 11:15:00 Images from the original note were not included. Venipuncture collection performed by clean technique on the left anticubitus. Total of 1 attempts were made. Slight pressure and a bandage/dressing were applied to the site(s). The patient experienced no complications. The following specimens were processed according to instructions and sent to [facility] laboratories per lab order on 05/06/2024: LT BLUE SST 1 RED LAV 2 PPT DK GREEN (LiHep) DK GREEN (SodH) SANZ DK BLUE (K2) DK BLUE (S) ACD Blood Culture NIPT/NTD [facility] 2023-10-05 09:02:25 Problem: Falls, Risk of Goal: Absence of falls 10/05/2023901 by Za Prasad RN Outcome: Adequate for discharge 10/05/2023758 by Za Prasad RN Outcome: Progressing as expected Problem: Breast-feeding - Ineffective Goal: Effective breast-feeding 10/05/2023901 by Za Prasad RN Outcome: Adequate for discharge 10/05/2023758 by Za Prasad RN Outcome: Progressing as expected Problem: Discharge Planning - Goal: Adequate for discharge 10/05/2023901 by Za Prasad RN Outcome: Adequate for discharge 10/05/2023758 by Za Prasad RN Outcome: Progressing as expected Goal: Mood stable 10/05/2023901 by Za Prasad RN Outcome: Adequate for discharge 10/05/2023758 by Za Prasad RN Outcome: Progressing as expected Problem: Complications of hemorrhage (risk or actual) Goal: Absence of active bleeding 10/05/2023901 by Za Prasad RN Outcome: Adequate for discharge 10/05/2023758 by Za Prasad RN Outcome: Progressing as expected Goal: Absence of complications 10/05/2023901 by Za Prasad RN Outcome: Adequate for discharge 10/05/2023758 by Za Prasad RN Outcome: Progressing as expected . [facility] Za Prasad RN [facility] 2023-10-05 08:00:03 Problem: Falls, Risk of Goal: Absence of falls Outcome: Progressing as expected Problem: Breast-feeding - Ineffective Goal: Effective breast-feeding Outcome: Progressing as expected Problem: Discharge Planning - Goal: Adequate for discharge Outcome: Progressing as expected Goal: Mood stable Outcome: Progressing as expected Problem: Complications of hemorrhage (risk or actual) Goal: Absence of active bleeding Outcome: Progressing as expected Goal: Absence of complications Outcome: Progressing as expected [facility] 2023-10-04 21:33:16 Problem: Discharge Planning - Goal: Adequate for discharge Outcome: Progressing as expected Goal: Mood stable Outcome: Progressing as expected Problem: Complications of hemorrhage (risk or actual) Goal: Absence of active bleeding Outcome: Progressing as expected Goal: Absence of complications Outcome: Progressing as expected [facility] 2023-10-04 21:32:03 Problem: Intrapartum process (including labor pain) Goal: Absence of or reduction of complications of labor Outcome: Resolved Goal: Able to cope with pain Outcome: Resolved Goal: Adequate to move to next level of care Outcome: Resolved Goal: Reduction in pain sensation Outcome: Resolved Problem: Falls, Risk of Goal: Absence of falls Outcome: Progressing as expected [facility] 2023-10-04 15:00:00 This note was copied from a baby's chart. Evaluation Situation Initial visit Background Baby boy is 13 hours old, born weighing 2790g. Gestational Age: 39w1d at FEEDING STATUS Formula supplementation via MATERNAL STATUS Assessment, Recommendations, Education Visited mom to discuss breast care for non mothers. Mom states she does plan to breastfeed but has not tried yet. I discussed with mom the importance of starting early to avoid a delay in milk production and nipple confusion for infant. I explained to mom that breast milk is based off of supply and demand. Meaning the more the empties the breast the more milk she will make. Mom was encouraged to breastfeed infant at least 8-12 times a day to build and maintain her milk supply. Mom states infant just finished a bottle and is not hungry at this time but will attempt at the next feeding. education provided. All questions answered. Mom does not have any other questions or concerns at this time. Mom instructed on how to contact Special Librarian for assistance with feedings or to answer questions while in the hospital. Mom verbalized understanding. KWASI La, RN, IBCLC T SERVICE MANAGER Afia Garzon RN [facility] 2023-10-04 01:17:49 DELIVERY BY SPONTANEOUS VAGINAL DELIVERY Delivery Date: 10/04/2023 Delivery Time: 1:06 AM Delivery Summary The patient was admitted to the Labor & Delivery unit for labor at 39+ weeks due to contractions. Delivery Physician: Rhoda Krishnamurthy MD Intrapartum Anesthesia/Analgesia: IV Fentanyl anlagesia Mode of Delivery: Delivery of barrera fetus with cephalic presentation Fetus Spontaneous vaginal delivery of head with cephalic position, occipital anterior. As the head crowned and distended the perineum, no episiotomy was performed. A blue towel was used to protect the perineum as the head crowned and delivered. The other hand was used to exert pressure on the occiput to control the delivery of the head. The perineum was pushed with a towel-draped hand as the head and mouth was delivered over the perineum. The head was allowed to rotate externally to achieve natural body posture. Examination of neck revealed no umbilical cord. The shoulder was delivered by gentle downward traction applied to head and downward traction for the delivery of anterior shoulder. This was followed by upward traction with delivery of posterior shoulder and body. After the delivery of infant, bulb suction was performed from ororpharynx and nostril with removal of clear amniotic fluid. A normal, male was delivered. The umbilical cord was double clamped, cut and the was handed off the field to the circulating nurse Placenta Placenta was delivered spontaneously while the abdominal hand lifted the uterus cephalad and other hand keeping the umbilical cord slightly taut. Laceration Laceration Repair: No laceration repair needed. Fourth Stage Fourth stage of labor was managed by uterine massage with abdominal hand and infusion 20 units of pitocin mixed with intravenous fluid. EBL: 0 100 Complications: none Weight: 2790 g 1 Minute 5 Minute 10 Minute Totals: 8 9 [facility] 2023-10-03 22:08:09 Problem: Intrapartum process (including labor pain) Goal: Absence of or reduction of complications of labor Outcome: Progressing as expected Goal: Able to cope with pain Outcome: Progressing as expected Goal: Adequate to move to next level of care Outcome: Progressing as expected Goal: Reduction in pain sensation Outcome: Progressing as expected Problem: Falls, Risk of Goal: Absence of falls Outcome: Progressing as expected [facility] 2023-10-03 21:12:15 Intrapartum Progress Note 10/03/2023 9:12 PM Subjective: Patient complains of pain with contractions Objective: Vitals last 24 hours: Temp: [36.3 ?C (97.4 ?F)-37.2 ?C (99 ?F)] 37.1 ?C (98.7 ?F) Pulse: [80-105] 85 Resp: [14-22] 14 BP: (109-126)/(70-85) 113/85 Intake/Output : I/O this shift: In: 225.8 [I.V.:6.8] Out: - No intake/output data recorded. Assessment Active movement: Yes Mode: EFM Uterine Activity: Mode: [place] Contractions (number / 10 minute): 4 Contraction duration (seconds): 50-60 Contraction quality: Moderate, Palpation Resting tone: Soft, Palpation Membrane Status Membrane status: Artificial Rupture date: 10/03/23 Rupture time: 1730 Amniotic fluid color: Clear Cervical Exam / 90 % / -2 AROM--clear Assessment/Plan: Marie Engel is a 23 year old at 39w0d Continue with Pitocin Reassuring status Rhoda Krishnamurthy MD [facility] 2023-10-03 20:01:35 Name/ MRN / Age / Gender: Marie Engel [id number] 23 year old female BMI: Estimated body mass index is 27.55 kg/m? as calculated from the following: Height as of 09/30/23: 1.6 m (5' 3"). Weight as of this encounter: 70.5 kg (155 lb 8 oz). Allergies: Patient has no known allergies. Last Vitals: BP Readings from Last 1 Encounters: 10/03/23 112/70 Pulse Readings from Last 1 Encounters: 10/03/23 84 SpO2 Readings from Last 1 Encounters: 10/03/23 100% Date of Surgery: 10/03/2023 Surgeon: * No surgeons listed * Procedure: LABOR CONSULT [facility]ESIA OUT OF OR - OR LOCATION Anesthesia History (-) Hx of anesthetic complications Previous Anesthetics/Airways Cardiovascular Negative Cardiac ROS Pulmonary Negative Pulmonary ROS Neuro/Musculoskeletal Negative Neuro/Musculosketal ROS GI/Hepatic Negative GI/Hepatic ROS Hematology Negative Hematology ROS Renal Negative Renal ROS Skin Negative Skin ROS Endo/Other Negative 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 Hold on DOS. Phentermine: Alert [facility] anesthesiologist SGLT2 Inhibitors: "gliflozins" to be held for 3 days prior to elective surgeries GLP1 Agonosit: stop 7 days prior to surgery MAC Cases: Continue taking NAVI inhibitors and ARBs ASA Classification ASA: 2 Labs: Chemistry 02/13/2023 CBC 10/03/2023 136 107 9 80 10.56 11.4 (L) 412 (H) 3.9 23 0.45 (L) 33.1 (L) eGFR: 175.9 Date: 02/13/2023 ANC: 7.75 (H) Date: 10/03/2023 LFTs - Coags AST: - AP: - Prot: - Ca: 8.9 PT: - Date: - ALT: - T Jovi: - Alb: - PTT: - Date: - PO4: - Date: - INR: - Date: - Cardiac Endocrine & other pBNP: - Date: - A1C: 4.2 Date: 04/02/2023 Trop I: - Date: - TSH: - Date: - CK: - Date: - FT4: - Date: - CKMB: - Date: - Lact: - Date: - Procal: - Date: - Respiratory -|-|-|-|- D-dimer: - ABG Date: - Date: - Current Medications: No outpatient medications have been marked as taking for the 10/03/23 encounter (Hospital Encounter). Previous Surgeries: No past surgical history on file. Anesthesia Physical Exam General no apparent distress and alert and oriented x 3 Neuro/Psych neurological Nonfocal Dental no notable dental hx Abdominal GI exam normal (+) abdomen soft and benign Airway Mallampati score:III TM distance:> 5 cm NECK: short Neck ROM: full Mouth opening:normal Extremity Normal extremity Pulmonary pulmonary exam normal and bilateral clear to auscultation Other Cardiovascular cardiovascular exam normalRhythm:Regular Rate: Normal Anesthesia Plan ASA Status: 2 Plan discussed during pre-op evaluation: Epidural Post-Operative Analgesia: Recovery Plan: LDR Additional comments: T SERVICE MANAGER AN-ANESTHESIOLOGY ANESTHESIOLOGIST [facility] 2023-10-03 14:23:48 Patient reports that she has been having contractions since 0930. 7 minutes apart. A1 [facility] patient Contacted Noemy and updated on patient condition. Patient transported by wheelchair to the department. T SERVICE MANAGER Gwen Dunn RN [facility] 2023-10-03 13:17:54 Pt stated that her back pain started this morning 03/07 and has vaginal pressure. Denies vaginal discharge, bleeding or leakage of fluid. Instructed to go to L&D to be evaluated. Verbalized understanding. Mary Kate at L&D advised. Verbalized understanding. NICKY SOTO RN 10/03/2023 1:18 PM T SERVICE MANAGER Nicky Soto RN [facility] 2023-10-03 13:12:39 Patient calling says she having back pain and pressure want to be seen is due for induciton tomorrow also want to discuss anemia. T SERVICE MANAGER Susan Castro [facility] 2023-10-03 10:15:00 Images from the original note were not included. Venipuncture collection performed by clean technique on the left anticubitus. Total of 1 attempts were made. Slight pressure and a bandage/dressing were applied to the site(s). The patient experienced no complications. The following specimens were processed according to instructions and sent to [facility] laboratories per lab order on 10/03/2023 : LT BLUE SST RED LAV 1 PPT DK GREEN (LiHep) DK GREEN (SodH) SANZ DK BLUE (K2) DK BLUE (S) ACD Blood Culture NIPT/NTD T SERVICE MANAGER [facility] 2023-09-30 16:06:10 Patient running late for appt. Chelle Renteria RN 09/30/2023 4:06 PM T SERVICE MANAGER Chelle Renteria RN [facility] 2023-09-30 16:00:00 ROUTINE VISIT 09/30/2023 4:31 PM SUBJECTIVE Marie Engel is a 23 year old at 38w4d who presents for routine visit. She has no complaints today; loss of fluid, vaginal bleeding, and signs or symptoms of pre-eclampsia. Good movement. Irregular contractions OBJECTIVE BP 116/79 (BP Location: Left arm, Patient Position: Sitting, BP CUFF SIZE: Adult Medium) | Pulse 85 | Temp 36.3 ?C (97.4 ?F) | Ht 5' 3" (1.6 m) | Wt 152 lb 9.6 oz (69.2 kg) | LMP 01/03/2023 | BMI 27.03 kg/m? Physical Exam: Gen: A&Ox3, NAD Pulm: No labored breathing Abd: Soft, gravid, NTTP, ND, no rebound or guarding Ext: No calf tenderness : ASSESSMENT: Marie Engel is a 23 year old at 38w4d who presents for routine visit. Patient Active Problem List Diagnosis Low TSH level ASB (asymptomatic bacteriuria) High-risk in first trimester Rubella non-immune status, antepartum PLAN 1. Normal , antepartum 2. 38 weeks gestation of - POCT Urinalysis w/o Specific [place] [facility] 2023-09-24 16:00:00 ROUTINE VISIT 09/24/2023 6:14 PM SUBJECTIVE Marie Engel is a 23 year old at 37w5d who presents for routine visit. She has complaints today: loss of fluid, vaginal bleeding, and signs or symptoms of pre-eclampsia. Good movement. Occasional contractions. Describes pressure. OBJECTIVE BP 114/80 (BP Location: Left arm, Patient Position: Sitting, BP CUFF SIZE: Adult Medium) | Pulse 65 | Ht 5' 3" (1.6 m) | Wt 154 lb 9.6 oz (70.1 kg) | LMP 01/03/2023 | BMI 27.39 kg/m? Physical Exam: Gen: A&Ox3, NAD Abd: Soft, gravid, NTTP, ND, no rebound or guarding Ext: No calf tenderness : ASSESSMENT: Marie Engel is a 23 year old at 37w5d who presents for routine visit. Patient Active Problem List Diagnosis Low TSH level ASB (asymptomatic bacteriuria) High-risk in first trimester Rubella non-immune status, antepartum PLAN 1. 37 weeks gestation of - POCT Urinalysis w/o Specific [place] 2. Normal , antepartum --Reviewed labor warnings --GBS negative --scheduled for IOL on 10/03 . --All questions answered [facility] 2023-09-16 13:00:00 ROUTINE VISIT 09/16/2023 1:14 PM SUBJECTIVE Marie Engel is a 23 year old at 36w4d who presents for routine visit. She has complaints today; loss of fluid, vaginal bleeding, and signs or symptoms of pre-eclampsia. Good movement. Occasional contractions Nausea and vomiting several times this morning. OBJECTIVE BP 107/73 | Pulse 83 | Temp 36.6 ?C (97.8 ?F) (Temporal Artery) | Resp 18 | Ht 5' 3" (1.6 m) | Wt 151 lb 3.2 oz (68.6 kg) | LMP 01/03/2023 | BMI 26.78 kg/m? Physical Exam: Gen: A&Ox3, NAD Pulm: No labored breathing Abd: Soft, gravid, NTTP, ND, no rebound or guarding Ext: No calf tenderness : /-4 ASSESSMENT: Marie Engel is a 23 year old at 36w4d who presents for routine visit. Patient Active Problem List Diagnosis Low TSH level ASB (asymptomatic bacteriuria) High-risk in first trimester Rubella non-immune status, antepartum PLAN 1. 36 weeks gestation of - POCT Urinalysis w/o Specific [place] - Cbc with Diff; Future 2. Normal , antepartum --GBS negative --Reviewed labor warnings and indications to go to hospital --Patient desires in IOL@39 weeks, set for 10/04/23 unless otherwise clinically indicated. --All questions answered [facility] 2023-09-10 21:35:00 Pt arrives to ED reporting abdominal pain and tightness that began around noon today. Pt is a , pt of Dr. Krishnamurthy. Pt denies any leaking of fluids or vaginal bleeding. Denies recent intercourse. Patient states at about noon today she started to feel tightness of her abdomen that would not go away. States that the tightness of her abdomen started to become painful and would radiate to her back. Lower back pain remained constant. She took some tylenol around 3 pm today and said that helped with the pain a little bit. Pt rating 8/10 pain. Patient was last seen in clinic September 02. Dr. Gabriel notified of pt status at 2155. Orders for IV fluids, GBS, GC/chlamydia, wet prep, and urine culture to be obtained. Pt to be rechecked for cervical change in an hour from prior SVE check. Wet prep showed moderate clue cells, many bacteria/wbc, and few rbc. Dr. Gabriel notified of results at 0005 of wet prep results and SVE of no change. Orders for one time dose of Flagyl 500mg PO to be given. Rx will be sent to patient pharmacy. A one time dose of Tylenol 1000mg PO given for flank pain. At 0026, DC instructions given and reviewed with patient. Expressed the importance of staying hydrated and picking up Rx and taking it as prescribed. Pt to follow-up in clinic as scheduled. Pt verbalized understanding. Pt ambulated off unit at 0028 with steady gait and support person along side her. No signs of distress noted with patient. T SERVICE MANAGER Princess Lozada RN [facility] 2023-09-10 21:14:16 Pt arrives ambulatory to ED reporting abd pain, contractions & vaginal pressure that began around noon she says. Reports 8 min between contractions. Pt of Dr Krishnamurthy Report called to Eugenia on L&D charge phone. Garcia RN [facility] 2023-09-02 13:00:00 ROUTINE VISIT 09/02/2023 2:22 PM SUBJECTIVE Marie Engel is a 23 year old at 34w4d who presents for routine visit. She has no complaints today: loss of fluid, vaginal bleeding, and signs or symptoms of pre-eclampsia. Good movement. Occasional contractions. OBJECTIVE BP 104/72 | Pulse 97 | Temp 36.1 ?C (97 ?F) (Temporal Artery) | Resp 18 | Ht 5' 3" (1.6 m) | Wt 141 lb 6.4 oz (64.1 kg) | LMP 01/03/2023 | BMI 25.05 kg/m? Physical Exam: Gen: A&Ox3, NAD Abd: Soft, gravid, NTTP, ND, no rebound or guarding Ext: No calf tenderness : deferred ASSESSMENT: Marie Engel is a 23 year old at 34w4d who presents for routine visit. Patient Active Problem List Diagnosis Low TSH level ASB (asymptomatic bacteriuria) High-risk in first trimester Rubella non-immune status, antepartum PLAN 1. 34 weeks gestation of - POCT Urinalysis w/o Specific [place] 2. Normal , antepartum -- 3rd trimester labs ordered --Reviewed with patient FAC -- labor warnings reviewed --All questions answered [facility] 2023-08-28 18:00:01 With increased abdominal pressure with Bowel movements you can have some cervical mucous pass. If no contractions or bleeding recommend a cervix check at next concepcion.t [facility] 2023-08-22 20:03:25 Pt 33 weeks , , states she lost mucous plug and Holger ely wanted her to come and get checked in Report to RANDOLPH Walker Pt transported to L&D via with ED PCT T SERVICE MANAGER Vanita Wagner RN [facility] 2023-08-22 10:21:31 Dea in L&D advised and verbalized understanding. NICKY SOTO RN 08/22/2023 10:21 AM . [facility] Nicky Soto RN [facility] 2023-08-16 13:30:00 ROUTINE VISIT 08/16/2023 1:56 PM CHELSEY Engel is a 23 year old at 32w1d who presents for routine visit. She has no complaints today: loss of fluid, vaginal bleeding, and signs or symptoms of pre-eclampsia. Good movement. Occasional contractions. OBJECTIVE BP 108/74 | Pulse 95 | Resp 18 | Ht 5' 4" (1.626 m) | Wt 144 lb (65.3 kg) | LMP 01/03/2023 | BMI 24.72 kg/m? Physical Exam: Gen: A&Ox3, NAD Abd: Soft, gravid, NTTP, ND, no rebound or guarding Ext: No calf tenderness : deferred ASSESSMENT: Marie Engel is a 23 year old at 32w1d who presents for routine visit. Patient Active Problem List Diagnosis Low TSH level ASB (asymptomatic bacteriuria) High-risk in first trimester Rubella non-immune status, antepartum PLAN 1. 32 weeks gestation of - POCT Urinalysis w/o Specific [place] 2. Normal , antepartum --Reviewed with patient FAC -- labor warnings reviewed --All questions answered [facility] 2023-08-02 13:15:00 ROUTINE VISIT 08/02/2023 2:58 PM CHELSEY Engel is a 23 year old at 30w1d who presents for routine visit. She has no complaints today: loss of fluid, vaginal bleeding, and signs or symptoms of pre-eclampsia. Good movement. Occasional contractions. OBJECTIVE BP 107/77 (BP Location: Left arm, Patient Position: Sitting, BP CUFF SIZE: Adult Medium) | Pulse 82 | Temp 36.7 ?C (98.1 ?F) | Resp 18 | Ht 5' 3" (1.6 m) | Wt 147 lb (66.7 kg) | LMP 01/03/2023 | BMI 26.04 kg/m? Physical Exam: Gen: A&Ox3, NAD Abd: Soft, gravid, NTTP, ND, no rebound or guarding Ext: No calf tenderness : deferred ASSESSMENT: Marie Engel is a 23 year old at 30w1d who presents for routine visit. Patient Active Problem List Diagnosis Low TSH level ASB (asymptomatic bacteriuria) High-risk in first trimester Rubella non-immune status, antepartum PLAN 1. 30 weeks gestation of - POCT Urinalysis w/o Specific [place] 2. Normal , antepartum --Reviewed 3rd trimester labs --Reviewed with patient FAC -- labor warnings reviewed --All questions answered [facility] 2023-07-19 10:45:00 Loaded pt w 50gm glucola, no issues. [facility] 2023-07-19 10:45:00 Images from the original note were not included. Venipuncture collection performed by clean technique on the left anticubitus. Total of 1 attempts were made. Slight pressure and a bandage/dressing were applied to the site(s). The patient experienced no complications. The following specimens were processed according to instructions and sent to [facility] laboratories per lab order on 07/19/2023 : LT BLUE SST 2 RED 1 LAV 2 PPT DK GREEN (LiHep) DK GREEN (SodH) SANZ DK BLUE (K2) DK BLUE (S) ACD Blood Culture NIPT/NTD [facility] 2023-07-19 09:45:00 ROUTINE VISIT 07/19/2023 10:26 AM SUBJECTIVE Marie Engel is a 23 year old at 28w1d who presents for routine visit. She has no complaints today: loss of fluid, vaginal bleeding, and signs or symptoms of pre-eclampsia. Good movement. Occasional contractions. OBJECTIVE BP 107/76 (BP Location: Left arm, Patient Position: Sitting, BP CUFF SIZE: Adult Medium) | Pulse 80 | Temp 36.9 ?C (98.5 ?F) | Resp 18 | Ht 5' 3" (1.6 m) | Wt 141 lb (64 kg) | LMP 01/03/2023 | BMI 24.98 kg/m? Physical Exam: Gen: A&Ox3, NAD Abd: Soft, gravid, NTTP, ND, no rebound or guarding Ext: No calf tenderness : deferred ASSESSMENT: Marie Engel is a 23 year old at 28w1d who presents for routine visit. Patient Active Problem List Diagnosis Low TSH level ASB (asymptomatic bacteriuria) High-risk in first trimester Rubella non-immune status, antepartum PLAN 1. 28 weeks gestation of - POCT Urinalysis w/o Specific [place] 2. Normal , antepartum --tdap vaccine given. 3. Rubella non-immune status, antepartum [facility] 2023-07-19 09:45:00 Addended by: WAI BOGGS MA on: 07/19/2023 10:32 AM Modules accepted: Orders [facility] 2023-04-15 10:06:36 Formatting of this n ote might be different from the original. Petros results received via fax. Panorama- low risk Horizon- negative for 14 out of 14 diseases Spoke with patient, name and verified. Patient informed of results excluding gender. Results placed in an envelope and left at the front end engineer for patient picker and sorter load and unload. Results signed, will scan and upload a copy to [facility]. Chelle Renteria RN 04/15/2023 10:07 AM Chelle Renteria RN [facility] 2023-04-09 17:01:18 Formatting of this n ote might be different from the original. Attempted to contact patient by phone, no answer, message left on voicemail to call back. Chelle Renteria RN 04/09/2023 5:01 PM Chelle Renteria RN [facility] 2023-04-09 10:31:35 Formatting of this n ote might be different from the original. Would recommend using Miralex for next few days to help with constipation to help prevent pain. [facility] 2023-04-09 10:15:23 Formatting of this n ote might be different from the original. Patient called with c/o mild stomach cramping, mid [...] recommendations. Chelle Renteria RN 04/09/2023 10:21 AM [facility] 2023-04-09 10:11:12 Formatting of this n ote might be different from the original. Patient called need to speak to nurse, experiencing cramps 13 weeks pg. Please advise Keli Alejandro [facility] 2023-04-05 11:30:00 Formatting of this n ote is different from the original. Images from the original note were not included. Venipuncture collection performed by clean technique on the right anticubitus. Total of 1 attempts were made. Slight pressure and a bandage/dressing were applied to the site(s). The patient experienced no complications. The following specimens were processed according to instructions and sent to [facility] laboratories per lab order on 04/05/2023 : Petros collected and shipped. LT BLUE SST 2 RED LAV 1 PPT DK GREEN (LiHep) DK GREEN (SodH) SANZ DK BLUE (K2) DK BLUE (S) ACD Blood Culture NIPT/NTD Andres Rose [facility] 2023-04-04 15:45:43 Formatting of this n ote might be different from the original. Spoke with patient, confirmed patient 13 weeks and 0 days today. No other questions or concerns expressed. Chelle Renteria RN 04/04/2023 3:46 PM Chelle Renteria RN [facility] 2023-04-04 15:14:13 Formatting of this n ote might be different from the original. Pt want to go over who many weeks she is Susan Castro [facility] 2023-04-04 13:15:00 Formatting of this n ote is different from the original. ROUTINE VISIT 04/04/2023 1:30 PM SUBJECTIVE Marie Engel is a 22 year old at 13w0d who presents for routine visit. She has no complaints today; denies contractions, loss of fluid, vaginal bleeding, and signs or symptoms of pre-eclampsia. Pt had protected sex with her untreated partner. OBJECTIVE BP 113/70 (BP Location: Right arm, Patient Position: Sitting, BP CUFF SIZE: Adult Medium) | Pulse 70 | Temp 36.7 ?C (98.1 ?F) (Oral) | Resp 16 | Ht 5' 3" (1.6 m) | Wt 128 lb 9.6 oz (58.3 kg) | LMP 01/03/2023 | BMI 22.78 kg/m? Physical Exam: Gen: A&Ox3, NAD CV: RRR, Pulm: No labored breathing Abd: Soft, gravid, NTTP, ND, no rebound or guarding Ext: No calf tenderness : Closed/long ASSESSMENT: Marie Engel is a 22 year old at 13w0d who presents for routine visit. Patient Active Problem List Diagnosis Low TSH level ASB (asymptomatic bacteriuria) High-risk in first trimester Rubella non-immune status, antepartum PLAN 1. 13 weeks gestation of - POCT URINALYSIS W/O SPECIFIC GRAVITY 2. High-risk in first trimester --Reviewed lab results --cfdna testing + carrier testing ordered --reviewed with pt likely false positive Hep C testing 3. Trichomonas vaginalis infection --Rx sent for partner since he was not treated --Test of cure collected - metroNIDAZOLE (FLAGYL) 500 mg tablet; Take 1 tablet by mouth every 12 (twelve) hours. Dispense: 10 tablet; Refill: 0 4. ASB (asymptomatic bacteriuria) --Pt will picker and sorter load and unload abx today 5. Rubella non-immune status, antepartum --Plan MMR vaccine pp --Questions answered Rhoda Krishnamurthy MD T [facility] 2023-04-04 13:15:00 Addended by: AMANDA MARQUEZ on: 04/04/2023 02:02 PM Modules accepted: Orders T [facility] 2023-04-02 08:30:00 Formatting of this n ote is different from the original. Images from the original note were not included. Venipuncture collection performed by clean technique on the right anticubitus. Total of 1 attempts were made. Slight pressure and a bandage/dressing were applied to the site(s). The patient experienced no complications. The following specimens were processed according to instructions and sent to [facility] laboratories per lab order on 04/02/2023 : LT BLUE SST 3 RED 1 LAV 3 PPT DK GREEN (LiHep) DK GREEN (SodH) SANZ DK BLUE (K2) DK BLUE (S) ACD Blood Culture NIPT/NTD Patient has been identified by and was provided with cup, antiseptic towelette, and clean catch instructions. 2 urine specimen(s) sent. Unpreserved 1 Urine Culture 1 Aptima tube Other urine T [facility] 2023-03-29 08:47:01 Formatting of this n ote might be different from the original. Unable to leave voice mail due to inbox not being set up. [facility] 2023-03-27 16:53:04 Formatting of this n ote might be different from the original. Unable to leave voice mail due to inbox not being set up. [facility] 2023-03-26 14:22:25 Formatting of this n ote might be different from the original. Attempted to contact pt back x 1. No voicemail available to leave message. Amanda Marquez MA [facility] 2023-03-26 14:14:39 Formatting of this n ote might be different from the original. Pt calling says she need usg entered diff due to her wanting to get it done sooner she was saying there an issue w order is she want it sooner that clinic need to call usg dept Susan Castro [facility] 2023-03-08 16:35:48 Formatting of this n ote might be different from the original. Images from the original note were not included. Rx electronically sent. [facility] 2023-02-14 07:28:04 Formatting of this n ote might be different from the original. Called pt to schedule appt requested by Dr. Donald, no answer could not leave a message Angy [place] [facility] 2023-02-14 07:25:54 Formatting of this n ote might be different from the original. ----- Message from Eugenia Donald MD sent at 02/13/2023 6:02 PM CDT ----- Can we schedule the above patient in beta clinic on 02/25 or later for repeat ultrasound for viability? Can cancel any other appointment until that time as she came into the ED and just needs this follow up visit now. Thanks, Eugenia Donald MD Obstetrics and Gynecology, PGY-4 [facility] 2023-02-13 20:19:12 Formatting of this n ote might be different from the original. RN and pt reviewed dc instructions. Pt verbalized understanding. Pt advised to attend follow up appointments as scheduled. Pt advised to follow new med regimen. Pt denied any remaining belongings in the ED. PT ambulated to lobby with steady gait. NAD noted upon departure. Mere Stark RN [facility] 2023-02-13 19:35:39 Formatting of this n ote might be different from the original. Pt pending completion of NS. T [facility] 2023-02-13 18:57:54 Formatting of this n ote might be different from the original. Report given Rina Hammonds. T Bella Aceves RN [facility] 2023-02-13 18:10:00 Formatting of this n ote might be different from the original. Per OB they are clear on their end. Pt to provide urine sample. Updated on POC. Denies current needs. Call light in reach. Sitting up in bed speaking to visitor. [facility] 2023-02-13 17:55:00 Formatting of this n ote might be different from the original. Pt ambulatory from triage for possible ectopic .. Per triage nurse pt pending urine and OB consult who is currently bedside. Pt AAO, respirations even and unlabored. Denies current needs. Speaking with OB [facility] 2023-02-13 13:48:11 Formatting of this n ote might be different from the original. Marie Engel is a 22 year old femalere Presents to the ed as a call back form OB for R/o ectopic . Pt had + HCG yesterday and is 5 weeks since last menses. Reports mild RLQ pain that started 1 hour ago. Pt appears to be in no active distress, respirations even and unlabored, vss. Pt awaits in lobby for provider eval due to ED saturation. Niles Torres RN [facility] 2023-02-13 13:38:00 Formatting of this n ote is different from the original. [facility] Emergency Department Note Patient Name: Marie Engel Date of : 2000 22 year old female Treatment Room: [facility] Primary Care Physician: Pawel Gayle Patient Escorted by: Family [5] Mode of Arrival: Personal means [1] EMS Treatment Prior to ED Arrival: [employer] treatment: None Travel and Exposure Screening: Symptoms Does patient have any of these symptoms?: (not recorded) Exposure Screening Has patient had contact with someone with a communicable disease in the last month?: (not recorded) Diseases exposed to:: (not recorded) Is Patient ?: (not recorded) Exposure Date: (not recorded) Chief Complaint: Chief Complaint Patient presents with Other Ectopic Rule out History of Present Illness: Marie Engel is a 22F with PMH of R ovarian cysts (during 1st ) who presents for lower abdominal pain. Report she found out she was 2 weeks ago, is currently around 5 weeks , had labs drawn at [facility]. Complained of R sided pain and was referred to ED for further eval. She reports the pain started 1-2 hours ago and is a cramping feeling. Has associated nausea, yesterday and 1 episode of vomiting. Reports she has white discharge when she urinates which is similar to the last time she had a UTI. Past Medical History/Immunizations: Past Medical History: Diagnosis Date Anemia resolved Anxiety ongoing, not on medication Asthma ongoing, has rescue inhaler Cancer Depression ongoing, not on medication Screening examination for STD (sexually transmitted disease) Tetanus received in last 5 years: Unknown Allergies: No Known Allergies Past Social History: Tobacco Use Never smoked or used smokeless tobacco. Vaping Use Some days; Substances: Nicotine; Devices: Disposable Alcohol Use Yes; 3.0 standard drinks of alcohol per week; 3 Cans of beer. Comments: socially Drug Use Never. Sexual Activity Sexually active; Partners: Male; Control/Protection: I.U.D., Condom. Past Surgical History: History reviewed. No pertinent surgical history. Review of Systems: Review of Systems Constitutional: Negative [...] 98 % Measured on Room air Physical Exam Constitutional: Appearance: Normal appearance. She is normal weight. [...] seconds. Neurological: Mental Status: She is alert. Radiology: US FIRST TRIMESTER LESS THAN 14 WEEKS Preliminary Result EXAM: US FIRST TRIMESTER LESS THAN 14 WEEKS HISTORY: 22 years -old Female with rule out ectopic . LMP = 01/03/2023. Beta-hC,193 mIU/mL. TECHNIQUE: Survey transabdominal and transvaginal ultrasound imaging of the pelvis was performed including color Doppler evaluation with medical sales representative images obtained. M-mode was used to [...] Report Dictated by Resident: Amber Wei Lab Results: Lab Results CBC WITH DIFF - Abnormal Result [...] mIU/mL ABORH CONFIRMATION (LAB ONLY) URINE CULTURE EKG: If EKG completed, see Procedure Note. 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 Orders Placed This Encounter Medications acetaminophen (TYLENOL) tablet 325 mg cefdinir (OMNICEF) capsule 300 mg NaCl 0.9% (NS) IV infusion 1,000 mL cefdinir 300 mg capsule 26-iron [id number] 29 mg iron- 1 mg-200 mg per capsule First Provider Eval: ED Events Date/Time Event User Comments 02/13/231405 Medical Screening Begins ESDRAS LANE MD -- 02/13/23 140 First Provider Evaluation ESDRAS LANE MD -- ED COURSE ED Course as of 02/13/231902Feb 13, 2023 183 BETA HC,986.00 Doubled from last bHCG appropriately [AC] 183 PLT x10^3(!): 451 Reactive, likely in setting of [AC] 1808 Pt [...] 1621 US FIRST TRIMESTER LESS THAN 14 WEEKS US notable for gestational sac with Mean sac diameter of 1.1 cm consistent with gestational age 5 weeks 5 days. No pole is visualized, possibly due to early . A corpus luteum is seen in the right ovary. While still possible, there is no evidence of ectopic in the current study. [AC] ED Course User Index [AC] Anna Brown DO [CD] Esdras Lane MD Diagnosis/Impression as of 02/13/231902 Urinary tract infection without hematuria, site unspecified Abdominal pain affecting Dehydration Procedures: Procedures MDM: Medical Decision Making Pt with RLQ pain, hx of cysts with previous , recently 5.5 weeks in. Associated with discharge with urination, nausea, vomiting. Will need to rule out ectopic vs UTI as cause of pain. Amount and/or Complexity of Data Reviewed Labs: ordered. Decision-making details documented in ED Course. Radiology: ordered. Decision-making details documented in ED Course. Risk OTC drugs. Prescription drug management. Flowsheet Documentation: Scoring Tools: No data recorded Disposition/Condition: ED Disposition ED Disposition Disch - Home Condition Stable Comment -- Discharge Medications: Patient's Medications START taking these medications CEFDINIR 300 MG CAPSULE Take 1 capsule by mouth every 12 (twelve) hours for 7 days. 26-IRON [id number] 29 MG IRON- 1 MG-200 MG PER [...] taking these medications No medications on file Follow-up: Contact information for follow-up Pawel Gayle Specialty: PED-PEDIATRICS Relationship: PCP - General PCP - Insurance HMO [address] [place] [id number] Electronically signed by: Anna Brown DO Internal Medicine PGY-3, [facility] Team Anna Brown DO 02/13/231902 Anna Brown DO 02/13/231903 Associated attestation - Esdras Lane MD - 02/13/2023 7:50 PM CDT Addendum I personally examined and participated in decision-making for this patient with the resident, Dr Brown Please see the resident note for further details. Lab and imaging studies reviewed Findings discussed with patient Diagnosis 1. UTI, Abd pain in , dehydration, early gestational sac vs early ectioic Plan 1. Hydration, abx, close OB follow up Note reviewed Dr. Esdras Lane MD, FACEP [facility] 2023-02-13 13:38:00 Formatting of this n ote might be different from the original. Medical Decision Making See ED course for MDM Problems Addressed: Abdominal pain affecting : acute illness or injury Dehydration: acute illness or injury Urinary tract infection without hematuria, site unspecified: acute illness or injury Amount and/or Complexity of Data Reviewed External Data Reviewed: labs and notes. Labs: ordered. Decision-making details documented in ED Course. Radiology: ordered. Discussion of management or test interpretation with external provider(s): Discussed case with OB for consultation Discussed case with OB for follow-up and recommendations Risk OTC drugs. Prescription drug management. Esdras Lane MD 02/13/231952 T [facility] 2023-02-13 10:45:51 Formatting of this n ote might be different from the original. Multiple attempts have been made to contact pt [...] letter. Eileen Wong RN 02/13/2023 10:54 AM Eileen Wong RN [facility] 2023-02-12 14:42:51 Formatting of this n ote might be different from the original. You missed your scheduled appointment for an ultrasound [...] need to determine the location of your [facility]
--- NOTE | 2024-06-29 20:53 | EDPHYS ---
Physician Documentation [facility] Name: Marie Gann Age: 24 yrs Sex: Female : 2000 Arrival Date: 06/29/2024 Time: 20:29 Bed IW3 Private MD: ED Physician Samy Donis HPI: 06/29 20:50 This 24 yrs old Female presents to ER via Ambulatory with complaints of Head sp3 Injury Without LOC-Adult. 20:50 24-year-old female with a history of anxiety and depression now presents to the ED with sp3 chief complaint head injury 2 days ago mechanical in nature where she fell on "has a bump on her head". Pain had totally resolved until her son "pulled her hair" and the pain returned which is now again subsiding. She denies any vision changes, neck pain or stiffness, other neurological complaints, syncope, near syncope, chest pain, shortness of breath, nausea, vomit, diarrhea, bleeding or any other signs or symptoms on ROS at this time.. 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 - Infectious Disease History:: Denies. - Social history:: Smoking status: Patient denies any tobacco usage or history of. ROS: 20:50 Constitutional: Negative for fever, chills, and weight loss, Eyes: Negative for injury, sp3 pain, redness, and discharge, ENT: Negative for injury, pain, and discharge, Neck: Negative for injury, pain, and swelling, Cardiovascular: Negative for chest pain, palpitations, and edema, Respiratory: Negative for shortness of breath, cough, wheezing, and pleuritic chest pain, Abdomen/GI: Negative for abdominal pain, nausea, vomiting, diarrhea, and constipation, Back: Negative for injury and pain, MS/Extremity: Negative for injury and deformity, Skin: Negative for injury, rash, and discoloration, Psych: Negative for depression, anxiety, suicide ideation, homicidal ideation, and hallucinations, Allergy/Immunology: Negative for hives, rash, and allergies, Endocrine: Negative for neck swelling, polydipsia, polyuria, polyphagia, and marked weight changes, Hematologic/Lymphatic: Negative for swollen nodes, abnormal bleeding, and unusual bruising, 20:50 All other systems are negative, Exam: 20:51 Constitutional: This is a well developed, well nourished patient who is awake, alert, sp3 and in no acute distress. Eyes: Pupils equal round and reactive to light, extra-ocular motions intact. Lids and lashes normal. Conjunctiva and sclera are non-icteric and not injected. Cornea within normal limits. Periorbital areas with no swelling, redness, or edema. ENT: Nares patent. No nasal discharge, no septal abnormalities noted. External auditory canals are clear. Oropharynx with no redness, swelling, or masses, exudates, or evidence of obstruction, uvula midline. Mucous membranes moist. Neck: Trachea midline, no thyromegaly or masses palpated, and no cervical lymphadenopathy. Supple, full range of motion without nuchal rigidity, or vertebral point tenderness. No Meningismus. Chest/axilla: Normal chest wall appearance and motion. Nontender with no deformity. No lesions are appreciated. Cardiovascular: Regular rate and rhythm with a normal S1 and S2. No gallops, murmurs, or rubs. Normal PMI, no JVD. No pulse deficits. Respiratory: Lungs have equal breath sounds bilaterally, clear to auscultation and percussion. No rales, rhonchi or wheezes noted. No increased work of breathing, no retractions or nasal flaring. Abdomen/GI: Soft, non-tender, with normal bowel sounds. No distension or tympany. No guarding or rebound. No evidence of tenderness throughout. Back: No spinal tenderness. No costovertebral tenderness. Full range of motion. Skin: Warm, dry with normal turgor. Normal color with no rashes, no lesions, and no evidence of cellulitis. MS/ Extremity: Pulses equal, no cyanosis. Neurovascular intact. Full, normal range of motion. Neuro: Awake and alert, GCS 15, oriented to person, place, time, and situation. Cranial nerves II-XII grossly intact. Motor strength 5/5 in all extremities. Sensory grossly intact. Cerebellar exam normal. Normal gait. Psych: Awake, alert, with orientation to person, place and time. Behavior, mood, and affect are within normal limits. 20:51 Head/face: Mild 2 cm hematoma in the left parietal region. Normal neurological exam.. Vital Signs: 20:45 BP 115 / 88; Pulse 69; Resp 16; Temp 98.7; Pulse Ox 100% ; Weight 68.95 kg; Height 5 cm10 ft. 3 in. ; Pain 2/10; 20:45 Body Mass Index 26.93 (68.95 kg, 160.02 cm) cm10 20:45 Pain Scale: Adult cm10 MDM: 20:47 Medical Screening Exam initiated sp3 20:51 Data reviewed: vital signs, nurses notes. ED course: 24-year-old female with head sp3 injury 2 days ago with scalp hematoma. Differential diagnosis includes scalp hematoma, closed head injury and I have ruled out clinically intracranial hemorrhage, CVA, or any other critical neurological insult. Patient alert and oriented, laughing in triage carrying on normal conversation in no acute distress. I reassured her and we will safely discharge her home to PCP follow-up as needed.. Administered Medications: No medications were administered Disposition Summary: 06/29/24 20:52 Discharge Ordered Notes: Location: Home sp3 Condition: Stable sp3 Diagnosis - Closed head injury, scalp hematoma sp3 Followup: sp3 - With: Private Physician - When: Upon discharge from the Emergency Department - Reason: Continuance of care Discharge Instructions: - Discharge Summary Sheet sp3 - Head Injury, Adult sp3 Forms: - Medication Reconciliation Form sp3 - Antibiotic Education sp3 - Prescription Opioid Use sp3 - Patient Portal Instructions sp3 - Leadership Thank You Letter sp3 Signatures: Samy Donis MD MD sp3 Daisy Tavares RN RN cm10
--- NOTE | 2024-06-29 20:53 | ER ---
Nurse's Notes [facility] Name: Marie Gann Age: 24 yrs Sex: Female : 2000 Arrival Date: 06/29/2024 Time: 20:29 Bed IW3 Private MD: Diagnosis: Closed head injury, scalp hematoma Presentation: 06/29 20:45 Chief complaint: Patient states: HAD A TRIP AND FALL ON SATURDAY AND TODAY HER SON simeon PULLED HER HAIR AND SHE STARTED HAVING A HEADACHE. Coronavirus screen: Client denies travel out of the [place] in the last 14 days. Ebola Screen: Patient denies travel to an Ebola-affected area in the 21 days before illness onset. No symptoms or risks identified at this time. Initial Sepsis Screen: Does the patient meet any 2 criteria? No. Patient's initial sepsis screen is negative. Does the patient have a suspected source of infection? No. Patient's initial sepsis screen is negative. Risk Assessment: Do you want to hurt yourself or someone else? Patient reports no desire to harm self or others. Onset of symptoms was June 29, 2024. 20:45 Method Of Arrival: Ambulatory cm10 20:45 Acuity: AD 4 cm10 Triage Assessment: 20:46 General: Appears in no apparent distress. comfortable, Behavior is calm, cooperative. cm10 Neuro: No deficits noted. Level of Consciousness is awake, alert, obeys commands, Oriented to person, place, time, situation, Appropriate for age Reports headache. Respiratory: No deficits noted. Airway is patent Respiratory effort is even, unlabored, Respiratory pattern is regular, symmetrical. Musculoskeletal: No deficits noted. Range of motion: intact in all extremities. 20:48 Pain: Complains of pain in head. 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 - Infectious Disease History:: Denies. - Social history:: Smoking status: Patient denies any tobacco usage or history of. Screenin:48 [facility] ED Fall Risk Assessment (Adult) History of falling in the last 3 months, cm10 including since admission Yes- single mechanical fall (1 pt) Confusion or Disorientation No (0 pts) Intoxicated or Sedated No (0 pts) Impaired Gait No (0 pts) Mobility Assist Device Used No (0 pt) Altered Elimination No (0 pt) Score/Fall Risk Level 0 - 2 = Low Risk Oriented to surroundings, Maintained a safe environment, Hourly rounding (assess needs \T\ fall precautionary measures) done. Abuse screen: Denies threats or abuse. Denies injuries from another. Nutritional screening: No deficits noted. Tuberculosis screening: No symptoms or risk factors identified. Vital Signs: 20:45 BP 115 / 88; Pulse 69; Resp 16; Temp 98.7; Pulse Ox 100% ; Weight 68.95 kg; Height 5 cm10 ft. 3 in. ; Pain 2/10; 20:45 Body Mass Index 26.93 (68.95 kg, 160.02 cm) cm10 20:45 Pain Scale: Adult cm10 ED Course: 20:33 Patient arrived in ED. gm2 20:34 Samy Donis MD is Attending Physician. sp3 20:46 Triage completed. cm10 20:47 Arm band placed on right wrist. Patient placed in waiting room. cm10 20:49 Patient has correct armband on for positive identification. Provided Education on: ER cm10 PROCESS AND PROCEDURES.. 20:49 No provider procedures requiring assistance completed. Patient did not have IV access cm10 during this emergency room visit. Administered Medications: No medications were administered Medication: 20:48 VIS not applicable for this client. cm10 Outcome: 20:49 Discharged to home ambulatory, cm10 20:49 Condition: good 20:49 Discharge instructions given to patient, Instructed on discharge instructions, follow up and referral plans. Demonstrated understanding of instructions, follow-up care, 20:52 Discharge ordered by . sp3 21:12 Patient left the ED. cm10 Signatures: Samy Donis MD MD sp3 Daisy Tavares RN RN cm10 Allyson De La Paz gm2
[2024-06-29 23:51] VITALS: BP 115/88; TEMP 98.7; O2SAT 100
== END 2024-06-29 21:12 | disposition home or self-care (01) ==
LOC: ER 20:29
DX: S00.03XA Contusion of scalp, initial encounter (principal)
CPT/HCPCS: 99282

== ENCOUNTER 2024-10-18 23:06 | Emergency (ER) | payer OTHER ==
--- OUTSIDE RECORDS SUMMARY | 2024-10-18 23:12 | XMS REPORT | Continuity of Care Document ---
Author Name Unknown Address [address] [facility] [address] [place] [address] [facility] Address [address] [facility] [address] [place] [address] Care Team Providers Care Pastry Wrapper Name Role Phone ANGELINA SAM Primary Care Physician ANGELINA Jones Attending Clinician UnavailANGELINA Diaz Attending Clinician UnavailALMA ROSA Gutierrez Attending Clinician Unavailable Rhoda Krishnamurthy MD Attending Clinician + [phone] 2, [facility] Attending Clinician Unavailable Angelina Sam MD Attending Clinician [phone] RHODA KRISHNAMURTHY Attending Clinician RHODA Dial Attending Clinician Maryse Landers MD, Nicholas Greco Attending Clinician [phone] Pob, [facility] Main Attending Clinician Unavailabl e Doctor Unassigned, [place] Attending Clinician U DAMARIS Singleton Attending Clinician Unavailable Damaris Gabriel MD Attending Clinician [phone] Triston Sun MD Attending Clinician [phone] TRISTON SUN Attending Clinician Unavailable 2, [facility] Attending Clinician Unavailable Ultrasound, Ang-Mfm Attending Clinician Unavaila ble Brook Birmingham MD Attending Clinician [phone] [place] [place] Attending Clinician Unavailable [place] Attending Clinician Unavailable Dexter HAMMONDS, Chelle Attending Clinician Unavailabl e Lab, Ang - Db Attending Clinician Unavailable Mery Chairez Attending Clinician [phone] Attending Clinician Unavailable [address] Attending Clinician Unavailable Cheyenne Meredith MD Attending Clinician [phone] [facility] Attending Clinician Unavailable Sonia Poon MD Attending Clinician [phone] SONIA POON Attending Clinician Unavailable Trimester, [facility] Attending Clinician Unavailable DAISHA THORNE Attending Clinician Unavailable Daisha Thorne MD Attending Clinician [phone] WILIAM BRAND Attending Clinician Unavailable KENIA DONALD Attending Clinician UnavailKENIA Khoury Attending Clinician Unavaila Mona Stubbs DO Attending Clinician [phone] MONA GARCIA Attending Clinician Unavailab TRACE Mendieta Attending Clinician Unavailab Aster Horton MD Attending Clinician [phone] ASTER HERNANDEZ Attending Clinician Unavailable Trace Valdes Attending Clinician [phone] RHODA KRISHNAMURTHY Admitting Clinician DAMARIS Herrera Admitting Clinician Unavailable Damaris Gabriel MD Admitting Clinician [phone] Admitting Clinician Unavailable DAISHA THORNE Admitting Clinician Unavailable Daisha Thorne MD Admitting Clinician [phone] Payers Payer Name Policy Type Policy Number Effective Date Expirati on Date Source [place] [employer] [id number] 2023 00:00:00 Problems Condition Name Condition Details Condition Category Status Onset Date Resolution Date Last Treatment Date Treating Clinician Comments Source Liveborn , of barrera , born in hospital by vaginal delivery Liveborn , of barrera , born in hospital by vaginal delivery Disease Active 10-04 00:00: 00 [facility] Normal labor Normal labor Disease Active 00:00: 00 [facility] 39 weeks gestation of 39 weeks gestation of Disease Active 307 00:00: 00 [facility] ASB (asymptoma tic bacteriuri a) ASB (asymptoma tic bacteriuri a) Disease Active 9 00:00: 00 [facility] High-risk in third trimester High-risk in third trimester Disease Active 04-04 00:00: 00 [facility] Rubella non-immune status, antepartum Rubella non-immune status, antepartum Disease Active 04-04 00:00: 00 [facility] Low TSH level Low TSH level Disease Active 514 00:00: 00 [facility] Screening examinatio n for STD (sexually transmitte d disease) Screening examinatio n for STD (sexually transmitte d disease) Disease Resolve d 01-09 00:00: 00 2023-03-07 00:00:00 2023-03-07 15:23:49 [facility] IUD (intrauter ine device) in place IUD (intrauter ine device) in place Disease Resolve d 01-09 00:00: 00 2023-03-07 00:00:00 2023-03-07 08:00:26 [facility] Allergies, Adverse Reactions, Alerts Allergy Name Allergy Type Status Severity Reaction(s) Onset Date Inactive Date Treating Clinician Comments Source NO KNOWN ALLERGIE S Drug Class Active [facility] Social History Social Habit Start Date Stop Date Quantity Comments Source ASSERTION 2023-01-17 00:00:00 [facility] SDOH Alcohol Frequency [facility] History SDOH Alcohol Std Drinks [facility] History SDOH Alcohol Binge [facility] Alcoholic beverage intake 2023-10-04 00:00:00 2023-10-04 00:00:00 .43 /d [facility] Alcohol intake 2023-10-04 00:00:2023-10-04 00:00:00 .43 /d [facility] Exposure to SARS-CoV-2 (event) 2022-06-19 00:00:00 2022-06-29 14:25:00 Not sure [facility] Tobacco use and exposure 2022-06-29 00:00:00 2022-06-29 00:00:00 Smokeless tobacco non-user [facility] History of Social function 2022-01-09 00:00:00 2022-01-09 00:00:00 [facility] Alcohol Comment 2022-01-09 00:00:00 2022-01-09 00:00:00 socially [facility] Sex assigned at 2001 00:00:00 2001 00:00:00 [facility] Smoking Status Start Date Stop Date Source Never smoked tobacco [facility] Medications Ordered Medication Name Filled Medication Name Start Date Stop Date Current Medication? Ordering Clinician Indication Dosage Frequency Signature (SIG) Comments Components Source vit no.124/iron /folic ( VITAMIN ORAL) 10-04 04:57: 04 10-04 00:00 :00 No Take by mouth. [facility] vitamin w/FA tablet 10-04 00:00: 00 Yes [id number] 102 1{tbl} Take 1 tablet by mouth in the morning. [facility] docusate 100 mg capsule 10-04 00:00: 00 Yes [id number] 102 200mg Take 2 capsules by mouth once daily as needed for Constipati on. [facility] ferrous sulfate 325 mg (65 mg iron) tablet 10-04 00:00: 00 Yes [id number] 102 325mg Take 1 tablet by mouth in the morning. [facility] ibuprofen 600 mg tablet 10-04 00:00: 00 Yes [id number] 102 600mg Take 1 tablet by mouth every 6 (six) hours as needed (Pain). Take with food or milk. [facility] rho(D) immune globulin (RHOGAM) syringe 300 mcg 10-03 07:45: 11 Yes 300ug 300 mcg, Intramuscu lar, ONCE, For 1 dose, Conditiona l, Routine [facility] HYDROcodone -acetaminop hen (NORCO 5) 5-325 mg tablet 1 tablet 10-03 07:44: 07 Yes 1{tbl} 1 tablet, Oral, Q6HPRN, Starting on Sat10/04/23 at 0144, Until Discontinu ed, Routine, Pain (scale 7-10) [facility] ibuprofen (IBU) tablet 600 mg 10-03 07:44: 07 Yes 600mg 600 mg, Oral, Q6HPRN, Starting on Sat10/04/23 at 0144, Until Discontinu ed, Routine, Pain (scale 4-6) [facility] acetaminoph en (TYLENOL) tablet 650 mg 10-03 07:44: 07 Yes 650mg 650 mg, Oral, Q6HPRN, Starting on Sat10/04/23 at 0144, Until Discontinu ed, Routine, Pain (scale 1-3) [facility] diphenhydrA MINE (BENADRYL) tablet 25 mg 10-03 07:44: 07 Yes 25mg 25 mg, Oral, Q6HPRN, Starting on Sat10/04/23 at 0144, Until Discontinu ed, Routine, Sleep, Itching [facility] ondansetron (ZOFRAN (PF)) injection 4 mg 10-03 07:44: 07 Yes 4mg 4 mg, Slow IV Push, Q8HPRN, Starting on Sat10/04/23 at 0144, Until Discontinu ed, Routine, Nausea and Vomiting (N/V) [facility] simethicone (GAS RELIEF (SIMETHICON E)) chewable tablet 160 mg 10-03 07:44: 07 Yes 160mg 160 mg, Oral, PC+HSPRN, Starting on Sat10/04/23 at 0144, Until Discontinu ed, Routine, Gas [facility] docusate (COLACE) capsule 200 mg 10-03 07:44: 07 Yes 200mg 200 mg, Oral, QDAILYPRN, Starting on Sat10/04/23 at 0144, Until Discontinu ed, Routine, Constipati on [facility] magnesium hydroxide (MILK OF MAGNESIA) 400 mg/5 mL suspension 30 mL 10-03 07:44: 07 Yes 30mL 30 mL, Oral, QDAILYPRN, Starting on Sat10/04/23 at 0144, Until Discontinu ed, Routine, Constipati on [facility] benzocaine- menthol (DERMOPLAST ) 20-0.5 % topical spray 10-03 07:44: 07 Yes Topical, PRN, Starting on Sat10/04/23 at 0144, Until Discontinu ed, Routine, Perineum discomfort [facility] FENTanyl PF (SUBLIMAZE (PF)) injection 100 mcg 10-03 00:05: 32 10-03 07:17 :27 No 100ug 100 mcg, Slow IV Push, Q2HPRN, Starting on Sat10/03/23 at 1805, Until Sat10/04/23 at 0117, Routine, Pain (scale 7-10), Pain (scale 4-6) [facility] D5W-LR IV infusion 1,000 mL 10-02 23:13: 12 10-03 07:17 :27 No 1000mL at 1-125 mL/hr, IV Infusion, TITRATE, Starting on Sat10/03/23 at 1713, Until Sat10/04/23 at 0117, Routine [facility] vit no.124/iron /folic ( VITAMIN ORAL) 10-02 17:20: 03 Yes Take by mouth. [facility] vit no.124/iron /folic ( VITAMIN ORAL) 09-11 08:03: 59 Yes Take by mouth. [facility] acetaminoph en (TYLENOL) tablet 1,000 mg 09-11 06:13: 00 09-11 06:24 :00 No 1000mg 1,000 mg, Oral, ONCE, 1 dose, On Sat09/11/23 at 0015, Routine [facility] metroNIDAZO LE (FLAGYL) tablet 500 mg 09-11 06:13: 00 09-11 06:25 :00 No 500mg 500 mg, Oral, ONCE, 1 dose, On Sat09/11/23 at 0015, Routine
Reason for Anti-Infec tive: Documented Infection< br>Documen charlene Infection Site: Other
O ther site: vagina
Duration of Therapy: Other (see Comments) [facility] NaCl 0.9% (NS) IV infusion 1,000 mL 09-11 05:00: 00 09-11 04:28 :00 No 1000mL at 20 mL/hr, IV Infusion, ONCE, 1 dose, On Sat09/10/23 at 2300, Routine [facility] vit no.124/iron /folic ( VITAMIN ORAL) 09-11 00:55: 59 Yes Take by mouth. [facility] metroNIDAZO LE 500 mg tablet 09-11 00:00: 00 10-04 00:00 :00 No [id number] 500mg Take 1 tablet by mouth every 12 (twelve) hours. [facility] NaCl 0.9% (NS) IV infusion 1,000 mL 08-23 10:11: 00 Yes 1000mL at 200 mL/hr, IV Infusion, CONTINUOUS , Starting on Sat08/23/23 at 0415, Until Discontinu ed, Routine [facility] vit no.124/iron /folic ( VITAMIN ORAL) 08-23 07:12: 06 Yes Take by mouth. [facility] acetaminoph en (TYLENOL) tablet 500 mg 08-23 04:47: 36 Yes 500mg 500 mg, Oral, Q6HPRN, Starting on Sat08/22/23 at 2247, Until Discontinu ed, Routine, Pain (scale 4-6) [facility] NaCl 0.9% (NS) IV infusion 1,000 mL 08-23 03:11: 00 08-23 10:24 :27 No 1000mL at 125 mL/hr, IV Infusion, CONTINUOUS , Starting on Sat08/22/23 at 2115, Until Sat08/23/23 at 0424, Routine [facility] vit no.124/iron /folic ( VITAMIN ORAL) 08-16 13:15: 00 Yes Take by mouth. [facility] ampicillin 250 mg capsule 2022-07 00:00: 00 Yes 250mg Take 1 capsule by mouth every 6 (six) hours. [facility] ampicillin 250 mg capsule 2022-07 00:00: 00 05-22 00:00 :00 No 250mg Take 1 capsule by mouth every 6 (six) hours for 7 days. [facility] metroNIDAZO LE (FLAGYL) 500 mg tablet 04-04 00:00: 00 Yes [id number] 500mg Take 1 tablet by mouth every 12 (twelve) hours. [facility] ampicillin 500 mg capsule 04-04 00:00: 00 05-16 00:00 :00 No [id number] 500mg Take 1 capsule by mouth every 6 (six) hours. [facility] metroNIDAZO LE (FLAGYL) 500 mg tablet 8-11 00:00: 00 03-14 04:59 :00 No [id number] 500mg Take 1 tablet by mouth in the morning and 1 tablet in the evening. Do all this for 5 days. [facility] ondansetron (ZOFRAN) 4 mg tablet -10 00:00: 00 10-04 00:00 :00 No [id number] 4mg Take 1 tablet by mouth every 8 (eight) hours as needed for Nausea and Vomiting (N/V). [facility] NaCl 0.9% (NS) IV infusion 1,000 mL 02-14 01:00: 00 Yes 1000mL at 999 mL/hr, IV Infusion, CONTINUOUS , Starting on Sat02/13/23 at 2000, Until Discontinu ed, Routine [facility] cefdinir (OMNICEF) capsule 300 mg 02-14 00:00: 00 02-14 00:13 :00 No 300mg 300 mg, Oral, ONCE, 1 dose, On Sat02/13/23 at 1900, FRANCISCO
Re ason for Anti-Infec tive: Documented Infection< br>Documen charlene Infection Site: Urine
D uration of Therapy: 7 days [facility] acetaminoph en (TYLENOL) tablet 325 mg 02-13 20:30: 00 02-13 20:30 :00 No 325mg 325 mg, Oral, ONCE, 1 dose, On Sat02/13/23 at 1530, Routine [facility] 26-iron ps-folic-dh a 29 mg iron- 1 mg-200 mg per capsule 02-13 00:00: 00 03-16 04:59 :00 No [id number] 1{capsu le} Take 1 capsule by mouth in the morning for 30 days. [facility] cefdinir 300 mg capsule 02-13 00:00: 00 02-21 04:59 :00 No [id number] 300mg Take 1 capsule by mouth every 12 (twelve) hours for 7 days. [facility] norgestimat e-ethinyl estradioL 0.25-35 mg-mcg per tablet 2021-07 2- 00:00: 00 03-07 00:00 :00 No [id number] 1{tbl} Take 1 tablet by mouth in the morning. [facility] ondansetron (ZOFRAN-ODT ) disintegrat ing tablet 4 mg 2021-07 15:30: 00 05-18 14:23 :00 No 4mg 4 mg, Oral, ONCE, 1 dose, On Sat05/18/22 at 1030, Routine [facility] ondansetron 4 mg disintegrat ing tablet 2021-07 00:00: 00 03-07 00:00 :00 No [id number] 4mg Take 1 tablet by mouth every 8 (eight) hours as needed for Nausea and Vomiting (N/V). [facility] norgestimat e-ethinyl estradioL 0.25-35 mg-mcg per tablet -16 00:00: 00 Yes [id number] 1{tbl} Take 1 tablet by mouth daily. [facility] Immunizations Ordered Immunization Name Filled Immunization Name Date Status Comments Source TDAP 2023-07-19 00:00:00 Completed [facility] HPV9 2018-10-20 00:00:00 Completed [facility] HPV9 2018-10-20 00:00:00 Completed Meningococcal Polysaccharide (groups A, C, Y and W-135) conjugate vaccine (MCV4P) 2018-10-20 00:00:00 Completed HPV9 2018-10-20 00:00:00 Completed [facility] HPV9 2018-10-20 00:00:00 Completed [facility] HPV9 2018-10-20 00:00:00 Completed [facility] HPV9 2018-10-20 00:00:00 Completed [facility] HPV9 2018-10-20 00:00:00 Completed [facility] HPV9 2018-10-20 00:00:00 Completed [facility] HPV9 2018-10-20 00:00:00 Completed [facility] HPV9 2018-10-20 00:00:00 Completed [facility] HPV9 2018-10-20 00:00:00 Completed [facility] HPV9 2018-10-20 00:00:00 Completed [facility] HPV9 2018-10-20 00:00:00 Completed [facility] HPV9 2018-10-20 00:00:00 Completed [facility] HPV9 2018-10-20 00:00:00 Completed [facility] HPV9 2018-10-20 00:00:00 Completed [facility] HPV9 2018-10-20 00:00:00 Completed [facility] HPV9 2018-10-20 00:00:00 Completed [facility] HPV9 2018-10-20 00:00:00 Completed [facility] HPV9 2018-10-20 00:00:00 Completed [facility] HPV9 2018-10-20 00:00:00 Completed [facility] HPV9 2018-10-20 00:00:00 Completed [facility] HPV9 2018-10-20 00:00:00 Completed [facility] HPV9 2018-10-20 00:00:00 Completed [facility] HPV9 2017-04-10 00:00:00 Completed [facility] HPV9 2017-04-10 00:00:00 Completed HPV 2017-04-10 00:00:00 Completed HPV9 2017-04-10 00:00:00 Completed [facility] HPV9 2017-04-10 00:00:00 Completed [facility] HPV9 2017-04-10 00:00:00 Completed [facility] HPV9 2017-04-10 00:00:00 Completed [facility] HPV9 2017-04-10 00:00:00 Completed [facility] HPV9 2017-04-10 00:00:00 Completed [facility] HPV9 2017-04-10 00:00:00 Completed [facility] HPV9 2017-04-10 00:00:00 Completed [facility] HPV9 2017-04-10 00:00:00 Completed [facility] HPV9 2017-04-10 00:00:00 Completed [facility] HPV9 2017-04-10 00:00:00 Completed [facility] HPV9 2017-04-10 00:00:00 Completed [facility] HPV9 2017-04-10 00:00:00 Completed [facility] HPV9 2017-04-10 00:00:00 Completed [facility] HPV9 2017-04-10 00:00:00 Completed [facility] HPV9 2017-04-10 00:00:00 Completed [facility] HPV9 2017-04-10 00:00:00 Completed [facility] HPV9 2017-04-10 00:00:00 Completed [facility] HPV9 2017-04-10 00:00:00 Completed [facility] HPV9 2017-04-10 00:00:00 Completed [facility] HPV9 2017-04-10 00:00:00 Completed [facility] HPV9 2017-04-10 00:00:00 Completed [facility] HPV9 2016-07-16 00:00:00 Completed [facility] HPV9 2016-07-16 00:00:00 Completed [facility] HPV9 2016-07-16 00:00:00 Completed [facility] HPV9 2016-07-16 00:00:00 Completed [facility] HPV9 2016-07-16 00:00:00 Completed [facility] HPV9 2016-07-16 00:00:00 Completed [facility] HPV9 2016-07-16 00:00:00 Completed [facility] HPV9 2016-07-16 00:00:00 Completed [facility] HPV9 2016-07-16 00:00:00 Completed [facility] HPV9 2016-07-16 00:00:00 Completed [facility] HPV9 2016-07-16 00:00:00 Completed [facility] HPV9 2016-07-16 00:00:00 Completed [facility] HPV9 2016-07-16 00:00:00 Completed [facility] HPV9 2016-07-16 00:00:00 Completed [facility] HPV9 2016-07-16 00:00:00 Completed [facility] HPV9 2016-07-16 00:00:00 Completed [facility] HPV9 2016-07-16 00:00:00 Completed [facility] HPV9 2016-07-16 00:00:00 Completed [facility] HPV9 2016-07-16 00:00:00 Completed [facility] HPV9 2016-07-16 00:00:00 Completed [facility] HPV9 2016-07-16 00:00:00 Completed [facility] HPV9 2016-07-16 00:00:00 Completed [facility] HPV9 2016-07-16 00:00:00 Completed [facility] HPV9 2016-07-16 00:00:00 Completed [facility] Influenza Virus Vaccine Quad IM 3+ YRS 2016-05-18 00:00:00 Completed Influenza Virus Vaccine Quad IM 3+ YRS 2015-09-09 00:00:00 Completed HEPATITIS A 2014-03-24 00:00:00 Completed Varicella (varivax)(chicken pox) 2014-03-24 00:00:00 Completed TDAP 2014-03-15 00:00:00 Completed [facility] Meningococcal Polysaccharide (groups A, C, Y and [...] Dosage 2001 00:00:00 Completed HPV9 Unknown Completed [facility] TDAP Unknown Completed [facility] HPV9 Unknown Completed [facility] TDAP Unknown Completed [facility] HPV9 Unknown Completed [facility] TDAP Unknown Completed [facility] HPV9 Unknown Completed [facility] TDAP Unknown Completed [facility] HPV9 Unknown Completed [facility] TDAP Unknown Completed [facility] HPV9 Unknown Completed [facility] TDAP Unknown Completed [facility] HPV9 Unknown Completed [facility] TDAP Unknown Completed [facility] HPV9 Unknown Completed [facility] TDAP Unknown Completed [facility] HPV9 Unknown Completed [facility] TDAP Unknown Completed [facility] HPV9 Unknown Completed [facility] HPV9 Unknown Completed [facility] HPV9 Unknown Completed [facility] HPV9 Unknown Completed [facility] HPV9 Unknown Completed [facility] HPV9 Unknown Completed [facility] HPV9 Unknown Completed [facility] HPV9 Unknown Completed [facility] HPV9 Unknown Completed [facility] HPV9 Unknown Completed [facility] HPV9 Unknown Completed [facility] HPV9 Unknown Completed [facility] TDAP Unknown Completed [facility] HPV9 Unknown Completed [facility] TDAP Unknown Completed [facility] HPV9 Unknown Completed [facility] TDAP Unknown Completed [facility] HPV9 Unknown Completed [facility] TDAP Unknown Completed [facility] HPV9 Unknown Completed [facility] TDAP Unknown Completed [facility] HPV9 Unknown Completed [facility] TDAP Unknown Completed [facility] HPV9 Unknown Completed [facility] TDAP Unknown Completed [facility] HPV9 Unknown Completed [facility] TDAP Unknown Completed [facility] HPV9 Unknown Completed [facility] TDAP Unknown Completed [facility] HPV9 Unknown Completed [facility] TDAP Unknown Completed [facility] HPV9 Unknown Completed [facility] TDAP Unknown Completed [facility] HPV9 Unknown Completed [facility] TDAP Unknown Completed [facility] HPV9 Unknown Completed [facility] TDAP Unknown Completed [facility] Vital Signs Vital Name Observation Time Observation Value Comments S ource Systolic blood pressure 2024-05-06 15:54:00 125 mm[Hg] [facility] Diastolic blood pressure 2024-05-06 15:54:00 84 mm[Hg] [facility] Heart rate 2024-05-06 15:54:00 77 /min [facility] Body temperature 2024-05-06 15:54:00 36.28 Paige [facility] Respiratory rate 2024-05-06 15:54:00 18 /min [facility] Body height 2024-05-06 15:54:00 160 cm [facility] Body weight 2024-05-06 15:54:00 74.345 kg [facility] BMI 2024-05-06 15:54:00 29.03 kg/m2 [facility] in Arterial blood by Pulse oximetry 2024-05-06 15:54:00 98 /min [facility] Systolic blood pressure 2023-10-05 14:23:00 97 mm[Hg] [facility] Diastolic blood pressure 2023-10-05 14:23:00 61 mm[Hg] [facility] Heart rate 2023-10-05 14:23:00 79 /min [facility] Body temperature 2023-10-05 14:23:00 36.94 [facility] Respiratory rate 2023-10-05 14:23:00 18 /min [facility] Oxygen saturation in Arterial blood by Pulse oximetry 2023-10-05 14:23:00 100 /min [facility] Body height 2023-10-04 10:00:00 160 cm [facility] Body weight 2023-10-03 20:26:00 70.534 [facility] BMI 2023-10-03 20:26:00 27.55 kg/m2 [facility] Systolic blood pressure 2023-09-30 22:20:00 116 mm[Hg] [facility] Diastolic blood pressure 2023-09-30 22:20:00 79 mm[Hg] [facility] Heart rate 2023-09-30 22:20:00 85 /min [facility] Body temperature 2023-09-30 22:20:00 36.33 [facility] Body height 2023-09-30 22:20:00 160 cm [facility] Body weight 2023-09-30 22:20:00 69.219 [facility] BMI 2023-09-30 22:20:00 27.03 kg/m2 [facility] Systolic blood pressure 2023-09-24 22:17:00 114 mm[Hg] [facility] Diastolic blood pressure 2023-09-24 22:17:00 80 mm[Hg] [facility] Heart rate 2023-09-24 22:17:00 65 /min [facility] Body height 2023-09-24 22:17:00 160 cm [facility] Body weight 2023-09-24 22:17:00 70.126 [facility] BMI 2023-09-24 22:17:00 27.39 kg/m2 [facility] Systolic blood pressure 2023-09-16 18:54:00 107 mm[Hg] [facility] Diastolic blood pressure 2023-09-16 18:54:00 73 mm[Hg] [facility] Heart rate 2023-09-16 18:54:00 83 /min [facility] Body temperature 2023-09-16 18:54:00 36.56 [facility] Respiratory rate 2023-09-16 18:54:00 18 /min [facility] Body height 2023-09-16 18:54:00 160 cm [facility] Body weight 2023-09-16 18:54:00 68.584 kg [facility] BMI 2023-09-16 18:54:00 26.78 kg/m2 [facility] Heart rate 2023-09-11 06:05:00 83 /min [facility] Oxygen saturation in Arterial blood by Pulse oximetry 2023-09-11 06:05:00 100 /min [facility] Systolic blood pressure 2023-09-11 06:00:00 91 mm[Hg] [facility] Diastolic blood pressure 2023-09-11 06:00:00 56 mm[Hg] [facility] Body temperature 2023-09-11 03:35:00 37.06 [facility] Respiratory rate 2023-09-11 03:35:00 16 /min [facility] Body weight 2023-09-11 03:35:00 67.903 [facility] BMI 2023-09-11 03:35:00 26.52 kg/m2 [facility] Systolic blood pressure 2023-09-02 18:44:00 104 mm[Hg] [facility] Diastolic blood pressure 2023-09-02 18:44:00 72 mm[Hg] [facility] Heart rate 2023-09-02 18:44:00 97 /min [facility] Body temperature 2023-09-02 18:44:00 36.11 [facility] Respiratory rate 2023-09-02 18:44:00 18 /min [facility] Body height 2023-09-02 18:44:00 160 cm [facility] Body weight 2023-09-02 18:44:00 64.139 [facility] BMI 2023-09-02 18:44:00 25.05 kg/m2 [facility] Heart rate 2023-08-23 10:30:00 73 /min [facility] Oxygen saturation in Arterial blood by Pulse oximetry 2023-08-23 10:30:00 99 /min [facility] Systolic blood pressure 2023-08-23 10:14:00 96 mm[Hg] [facility] Diastolic blood pressure 2023-08-23 10:14:00 69 mm[Hg] [facility] Body temperature 2023-08-23 10:14:00 36.44 [facility] Respiratory rate 2023-08-23 10:14:00 18 /min [facility] Systolic blood pressure 2023-08-16 19:14:00 108 mm[Hg] [facility] Diastolic blood pressure 2023-08-16 19:14:00 74 mm[Hg] [facility] Heart rate 2023-08-16 19:14:00 95 /min [facility] Respiratory rate 2023-08-16 19:14:00 18 /min [facility] Body height 2023-08-16 19:14:00 162.6 cm [facility] Body weight 2023-08-16 19:14:00 65.318 [facility] BMI 2023-08-16 19:14:00 24.72 kg/m2 [facility] Systolic blood pressure 2023-08-02 19:26:00 107 mm[Hg] [facility] Diastolic blood pressure 2023-08-02 19:26:00 77 mm[Hg] [facility] Heart rate 2023-08-02 19:26:00 82 /[facility] 2023-08-02 19:26:00 36.72 [facility] Respiratory rate 2023-08-02 19:26:00 18 /min [facility] Body height 2023-08-02 19:26:00 160 [facility] 2023-08-02 19:26:00 66.679 kg Univ [facility] BMI 2023-08-02 19:26:00 26.04 kg/m2 [facility] Systolic blood pressure 2023-07-19 16:07:00 107 mm[Hg] [facility] Diastolic blood pressure 2023-07-19 16:07:00 76 mm[Hg] [facility] Heart rate 2023-07-19 16:07:00 80 /min [facility] 2023-07-19 16:07:00 36.94 [facility] Respiratory rate 2023-07-19 16:07:00 18 /min [facility] Body height 2023-07-19 16:07:00 160 cm Univ [facility] Body weight 2023-07-19 16:07:00 63.957 [facility] BMI 2023-07-19 16:07:00 24.98 kg/m2 [facility] Systolic blood pressure 2023-06-18 22:23:00 113 mm[Hg] [facility] Diastolic blood pressure 2023-06-18 22:23:00 87 mm[Hg] [facility] Heart rate 2023-06-18 22:23:00 87 /min [facility] Body temperature 2023-06-18 22:23:00 36.89 [facility] Respiratory rate 2023-06-18 22:23:00 16 /min [facility] Body height 2023-06-18 22:23:00 160 cm [facility] weight 2023-06-18 22:23:00 63.05 kg Univ [facility] BMI 2023-06-18 22:23:00 24.62 kg/m2 [facility] Systolic blood pressure 2023-05-02 16:58:00 118 mm[Hg] [facility] Diastolic blood pressure 2023-05-02 16:58:00 74 mm[Hg] [facility] Heart rate 2023-05-02 16:58:00 106 /min [facility] Body temperature 2023-05-02 16:58:00 36.61 [facility] Respiratory rate 2023-05-02 16:58:00 16 /min [facility] Body height 2023-05-02 16:58:00 160 cm Univ [facility] Body weight 2023-05-02 16:58:00 62.007 [facility] BMI 2023-05-02 16:58:00 24.22 kg/m2 [facility] Systolic blood pressure 2023-04-04 18:17:00 113 mm[Hg] [facility] Diastolic blood pressure 2023-04-04 18:17:00 70 mm[Hg] [facility] Heart rate 2023-04-04 18:17:00 70 /min [facility] Body temperature 2023-04-04 18:17:00 36.72 Paige [facility] Respiratory rate 2023-04-04 18:17:00 16 /min [facility] Body height 2023-04-04 18:17:00 160 cm Univ [facility] Body weight 2023-04-04 18:17:00 58.333 kg Univ [facility] BMI 2023-04-04 18:17:00 22.78 kg/m2 [facility] Systolic blood pressure 2023-03-07 20:27:00 110 mm[Hg] [facility] Diastolic blood pressure 2023-03-07 20:27:00 73 mm[Hg] [facility] Heart rate 2023-03-07 20:27:00 64 /min [facility] Respiratory rate 2023-03-07 20:27:00 18 /min [facility] Body height 2023-03-07 20:27:00 160 cm [facility] Body weight 2023-03-07 20:27:00 59.421 [facility] BMI 2023-03-07 20:27:00 23.21 kg/m2 [facility] Systolic blood pressure 2023-02-14 01:00:00 120 mm[Hg] [facility] Diastolic blood pressure 2023-02-14 01:00:00 79 mm[Hg] [facility] Heart rate 2023-02-14 01:00:00 87 /min [facility] Respiratory rate 2023-02-14 01:00:00 18 /min [facility] Oxygen saturation in Arterial blood by Pulse oximetry 2023-02-14 01:00:00 99 /min [facility] Body temperature 2023-02-13 18:47:00 36.61 [facility] Systolic blood pressure 2023-02-11 15:26:00 122 mm[Hg] [facility] Diastolic blood pressure 2023-02-11 15:26:00 81 mm[Hg] [facility] Heart rate 2023-02-11 15:26:00 75 /min [facility] Body temperature 2023-02-11 15:26:00 36.06 [facility] Respiratory rate 2023-02-11 15:26:00 18 /min [facility] Body height 2023-02-11 15:26:00 160 cm [facility] Body weight 2023-02-11 15:26:00 58.06 kg [facility] BMI 2023-02-11 15:26:00 22.67 kg/m2 [facility] Systolic blood pressure 2023-02-08 09:30:00 113 mm[Hg] [facility] Diastolic blood pressure 2023-02-08 09:30:00 88 mm[Hg] [facility] Heart rate 2023-02-08 09:30:00 79 /min [facility] Respiratory rate 2023-02-08 09:30:00 15 /min [facility] Oxygen saturation in Arterial blood by Pulse oximetry 2023-02-08 09:30:00 95 /min [facility] Body temperature 2023-02-08 07:14:00 37.17 [facility] Body weight 2023-02-08 07:14:00 58.968 [facility] BMI 2023-02-08 07:14:00 23.03 kg/m2 [facility] Systolic blood pressure 2022-06-29 20:54:00 119 mm[Hg] [facility] Diastolic blood pressure 2022-06-29 20:54:00 82 mm[Hg] [facility] Heart rate 2022-06-29 20:54:00 78 /min [facility] Body temperature 2022-06-29 20:54:00 37.06 Paige [facility] Respiratory rate 2022-06-29 20:54:00 18 /min [facility] Body height 2022-06-29 20:54:00 160 cm [facility] Body weight 2022-06-29 20:54:00 58.06 kg [facility] BMI 2022-06-29 20:54:00 22.67 kg/m2 [facility] Systolic blood pressure 2022-05-18 14:17:00 106 mm[Hg] [facility] Diastolic blood pressure 2022-05-18 14:17:00 80 mm[Hg] [facility] Heart rate 2022-05-18 14:17:00 78 /min [facility] Body temperature 2022-05-18 14:17:00 36.67 Paige [facility] Respiratory rate 2022-05-18 14:17:00 18 /min [facility] Body height 2022-05-18 14:17:00 160 cm [facility] Body weight 2022-05-18 14:17:00 56.7 kg [facility] BMI 2022-05-18 14:17:00 22.14 kg/m2 [facility] Oxygen saturation in Arterial blood by Pulse oximetry 2022-05-18 14:17:00 99 /min [facility] Systolic blood pressure 2022-01-11 14:20:00 109 mm[Hg] [facility] Diastolic blood pressure 2022-01-11 14:20:00 71 mm[Hg] [facility] Heart rate 2022-01-11 14:20:00 76 /min [facility] Body temperature 2022-01-11 14:20:00 36.89 Paige [facility] Respiratory rate 2022-01-11 14:20:00 18 /min [facility] Body height 2022-01-11 14:20:00 162.6 cm [facility] Body weight 2022-01-11 14:20:00 61.236 kg [facility] BMI 2022-01-11 14:20:00 23.17 kg/m2 [facility] Procedures Procedure Date / Time Performed Performing Clinician Source CBC WITH DIFF 2023-10-05 09:57:00 Luan Krishnamurthy [facility] HIV 1/2 AG-AB WITH REFLEX 2023-10-03 23:43:00 Polo Krishnamurthysol [facility] CBC WITH DIFF 2023-10-03 23:39:00 Luan Krishnamurthy [facility] HEPATITIS B SURFACE ANTIGEN 2023-10-03 23:39:00 Raghu Rhoda [facility] HB INDIRECT ANTIGLOBULIN TEST 2023-10-03 23:39:00 Raghu [facility] RHO (D) IMMUNE GLOBULIN 2023-10-03 23:39:00 Dwight madrigal Rhoda [facility] ADC OR RALPH ONLY - RPR 2023-10-03 23:39:00 Polo Krishnamurthysol [facility] NOTICE OF PRIVACY PRACTICES 2023-10-03 20:19:41 Doctor Unassigned, [place] [facility] CONSENT/REFUSAL FOR DIAGNOSIS AND TREATMENT 2023-10-03 20:16:59 Doctor Unassigned, [place] [facility] ASSIGNMENT OF BENEFITS 2023-10-03 16:15:41 Docto r Unassigned, [place] [facility] POCT URINALYSIS W/O SPECIFIC GRAVITY 2023-09-30 00:00:00 Raghu [facility] POCT URINALYSIS W/O SPECIFIC GRAVITY 2023-09-24 00:00:00 Raghu [facility] POCT URINALYSIS W/O SPECIFIC GRAVITY 2023-09-16 19:09:00 Raghu [facility] ADC CLC OR LCC ONLY - WET PREP 2023-09-11 04:29:00 AdumDamaris Lida [facility] CONSENT/REFUSAL FOR DIAGNOSIS AND TREATMENT 2023-09-11 03:11:06 Doctor Unassigned, [place] [facility] POCT URINALYSIS W/O SPECIFIC GRAVITY 2023-09-02 18:51:00 Raghu [facility] ADC ONLY - FERN TEST 2023-08-23 05:00:00 Raghu [facility] URINALYSIS 2023-08-23 04:59:00 Raghu [facility] ADC CLC OR LCC ONLY - WET PREP 2023-08-23 04:59:00 Raghu [facility] ASSIGNMENT OF BENEFITS 2023-08-23 01:55:19 Docto r Unassigned, [place] [facility] CONSENT/REFUSAL FOR DIAGNOSIS AND TREATMENT 2023-08-23 01:54:52 Doctor Unassigned, [place] [facility] POCT URINALYSIS W/O SPECIFIC GRAVITY 2023-08-16 00:00:00 Raghu [facility] POCT URINALYSIS W/O SPECIFIC GRAVITY 2023-08-02 00:00:00 Raghu [facility] TDAP VACCINE, >11 YRS, IM 2023-07-19 16:32:02 Raghu [facility] POCT URINALYSIS W/O SPECIFIC GRAVITY 2023-07-19 00:00:00 Raghu [facility] POCT URINALYSIS W/O SPECIFIC GRAVITY 2023-06-18 00:00:00 Raghu [facility] SECOND AND THIRD TRIMESTER ULTRASOUND 2023-06-04 19:56:00 Polo Krishnamurthysol [facility] URINE CULTURE 2023-05-02 17:05:00 Luan [facility] POCT URINALYSIS W/O SPECIFIC GRAVITY 2023-05-02 00:00:00 Raghu [facility] SCANNED LAB RESULTS 2023-04-05 05:01:00 Doctor Vianca kincaid, [place] [facility] POCT URINALYSIS W/O SPECIFIC GRAVITY 2023-04-04 00:00:00 Raghu [facility] US OB TRANSVAGINAL 2023-03-07 20:54:56 Shannan Krishnamurthylida [facility] HAND BULLDOZER CLINIC ULTRASOUND 2023-03-07 05:01:00 Doctor Unassigned, [place] [facility] POCT TEST 2023-03-07 00:00:00 Raghu Rhoda [facility] POCT URINALYSIS W/O SPECIFIC GRAVITY 2023-03-07 00:00:00 Raghu [facility] ABORH CONFIRMATION (LAB ONLY) 2023-02-13 23:50:[address] [facility] URINALYSIS 2023-02-13 23:29:00 Anna [facility] BASIC METABOLIC PANEL (NA, K, CL, CO2, GLUCOSE, BUN, CREATININE, CA) 2023-02-13 21:01:00 Anna Brown [facility] TOTAL BETA HCG ASSAY 2023-02-13 21:01:00 Marisela Brown [facility] CBC WITH DIFF 2023-02-13 21:01:00 Anna Brown [facility] HB ABO GROUPING 2023-02-13 21:01:00 Anna Brown [facility] CONSENT/REFUSAL FOR DIAGNOSIS AND TREATMENT 2023-02-13 18:38:52 Doctor Unassigned, [place] [facility] POCT TEST 2022-06-29 00:00:00 Kaden Donald [facility] POCT TEST 2022-05-18 14:24:00 Kim Garcia ra [facility] CONSENT/REFUSAL FOR DIAGNOSIS AND TREATMENT 2022-05-18 14:12:43 Doctor Unassigned, [place] [facility] Encounters Start Date/Time End Date/Time Encounter Type Admission Type Attending [facility] Care Department Encounter ID Source 2023-08-23 07:12:12 Outpatient X [facility] EDIL [id number] [facility] 2025-05-06 10:40:00 2025-05-06 10:40:00 Outpatient R OBI-ABNER , ANGELINA OBI-ABNER , ANGELINA [facility] [id number] [facility] 2024-08-21 14:00:00 2024-08-21 14:00:00 Outpatient R ALMA ROAS COSTELLO [facility] [id number] [facility] 2024-07-13 14:00:00 2024-07-13 14:00:00 Outpatient R OBI-ABNER , ANGELINA OBI-ABNER , ANGELINA [facility] [id number] [facility] 2024-04-02 00:00:00 2024 18:25:28 Patient Secure Msg [facility] [id number] 350.1.13.10 4.2.7.2.686 [id number] [facility] 2024-05-06 11:15:00 2024-05-06 11:23:04 Outpatient R OBI-ABNER , ANGELINA OBI-ABNER , ANGELINA [facility] [id number] [facility] 2024-05-06 11:15:00 2024-05-06 11:23:04 Collection Supervisor Visit 2, Adc Lab Angelina Sam 2, Adc Lab [facility] 1.2.840.114 350.1.13.10 4.2.7.2.686 [id number] [facility] 2024-05-06 10:00:00 2024-05-06 11:03:20 Office Visit Angelina Sam [facility] 1.2.840.114 350.1.13.10 4.2.7.2.686 [id number] [facility] 2024-04-22 10:00:00 2024-04-22 10:00:00 Outpatient R OBI-ABNERANGELINA Salazar OBI-ABNER , ANGELINA [facility] [id number] [facility] 2023-11-18 16:00:00 2023-11-18 16:00:00 Outpatient R WREN-BETHANY S, RHODA WREN-BETHANY S, RHODA [facility] [id number] [facility] 2023-11-11 13:15:00 2023-11-11 13:15:00 Outpatient R WREN-BETHANY S, RHODA WREN-BETHANY S, RHODA ORMB [facility] [id number] [facility] 2023-10-14 00:00:00 2023-10-14 00:00:00 Patient Secure Msg Wren-Bethany s, Rhoda [facility] 1.2.840.114 350.1.13.10 4.2.7.2.686 [id number] [facility] 2023-10-03 14:27:00 2023-10-05 11:55:00 Inpatient X WREN-BETHANY S, RHODA WREN-BETHANY S, RHODA [facility] EDIL [id number] [facility] 2023-10-03 14:27:00 2023-10-05 11:55:00 Hospital Encounter Rhoda Villar [facility] 1.2.840.114 350.1.13.10 4.2.7.2.686 [id number] [facility] 2023-10-03 20:01:10 2023-10-03 20:01:10 Anesthesia Event LandersNicholas gross A [facility] 1.2840.114 350.1.13.10 4.2.7.2.686 [id number] [facility] 2023-10-03 10:15:00 2023-10-03 10:30:00 Collection Supervisor Visit Pochi, Adc Lab Main TiffanieBethany nagy Rhoda [facility] 1.2840.114 350.1.13.10 4.2.7.2.686 [id number] [facility] 2023-10-03 10:15:00 2023-10-03 10:15:00 Outpatient R RHODA VILLAR MARISOL [facility] [id number] [facility] 2023-10-03 00:00:00 2023-10-03 00:00:00 Orders Only Doctor Unassigned, [place] [facility] 1.2840.114 350.1.13.10 4.2.7.2.686 [id number] [facility] 2023-10-03 00:00:00 2023-10-03 00:00:00 Telephone Rhoda Villar [facility] 1.2840.114 350.1.13.10 4.2.7.2.686 [id number] [facility] 2023-09-30 16:00:00 2023-09-30 16:31:50 Outpatient R RHODA VILLARBETHANY S, RHODA [facility] [id number] [facility] 2023-09-30 16:00:00 2023-09-30 16:31:50 Routine Visit Dwighti s, Rhoda [facility] 1.2840.114 350.1.13.10 4.2.7.2.686 [id number] 134 [id number] [facility] 2023-09-30 00:00:00 2023-09-30 00:00:00 Patient Secure Msg Doctor Unassigned, [place] [facility] 1.0.114 350.1.13.10 4.2.7.2.686 [id number] [facility] 2023-09-24 16:00:00 2023-09-24 16:28:11 Routine Visit Rhoda Villar [facility] 1.0.114 350.1.13.10 4.2.7.2.686 [id number] [facility] 2023-09-24 16:00:00 2023-09-24 16:28:11 Outpatient R WREN-BETHANY S, RHODA WREN-BETHANY S, RHODA [facility] [id number] [facility] 2023-09-23 14:45:00 2023-09-23 14:45:00 Outpatient R WREN-BETHANY S, RHODA WREN-BETHANY S, RHODA [facility] [id number] [facility] 2023-09-19 00:00:00 2023-09-19 00:00:00 Patient Secure Msg Holger-Bethany s, Rhoda [facility] 1.840.114 350.1.13.10 4.2.7.2.686 [id number] 134 [id number] [facility] 2023-09-16 13:00:00 2023-09-16 13:13:44 Outpatient R WREN-BETHANY S, RHODA WREN-BETHANY S, RHODA [facility] [id number] [facility] 2023-09-16 13:00:00 2023-09-16 13:13:44 Routine Visit Wren-Bethany s, Rhoda [facility] 1.2.840.114 350.1.13.10 4.2.7.2.686 [id number] 134 [id number] [facility] 2023-09-10 21:20:00 2023-09-11 00:26:00 Outpatient X DAMARIS GABRIEL [facility] EDIL [id number] [facility] 2023-09-10 21:20:00 2023-09-11 00:26:00 Emergency Adum, Damaris Lida [facility] 1.2.840.114 350.1.13.10 4.2.7.2.686 [id number] [facility] 2023-09-02 13:00:00 2023-09-02 14:00:12 Outpatient R WREN-BETHANY S, RHODA WREN-BETHANY S, RHODA [facility] [id number] [facility] 2023-09-02 13:00:00 2023-09-02 14:00:12 Routine Visit Wren-Bethany s, Rhoda Triston Sun [facility] 1.2.840.114 350.1.13.10 4.2.7.2.686 [id number] [facility] 2023-08-28 00:00:00 2023-08-28 00:00:00 Patient Secure Msg Wren-Bethany s, Rhoda [facility] 1.2.840.114 350.1.13.10 4.2.7.2.686 [id number] [facility] 2023-08-22 19:58:00 2023-08-23 07:08:00 Outpatient X WREN-BETHANY S, RHODA WREN-BETHANY S, RHODA [facility] [id number] [facility] 2023-08-22 19:58:00 2023-08-23 07:08:00 Emergency Wren-Bethany s, Rhoda [facility] 1.2.840.114 350.1.13.10 4.2.7.2.686 [id number] [facility] 2023-08-22 00:00:00 2023-08-22 00:00:00 Patient Secure Msg Wren-Bethany s, Rhoda [facility] 1.2.840.114 350.1.13.10 4.2.7.2.686 [id number] [facility] 2023-08-17 00:00:00 2023-08-17 00:00:00 Patient Secure Msg Wren-Bethany s, Rhoda [facility] 1.2.840.114 350.1.13.10 4.2.7.2.686 [id number] [facility] 2023-08-16 13:30:00 2023-08-16 13:31:39 Outpatient R WREN-BETHANY S, RHODA WREN-BETHANY S, RHODA [facility] [id number] [facility] 2023-08-16 13:30:00 2023-08-16 13:31:39 Routine Visit Wren-Bethany s, Rhoda [facility] 1.2.840.114 350.1.13.10 4.2.7.2.686 [id number] 134 [id number] [facility] 2023-08-09 00:00:00 2023-08-09 00:00:00 Patient Secure Msg Wren-Bethany s, Rhoda [facility] BUILDING 1.2.840.114 350.1.13.10 4.2.7.2.686 [id number] 134 [id number] [facility] 2023-08-02 13:15:00 2023-08-02 13:45:57 Outpatient R WREN-BETHANY S, RHODA WREN-BETHANY S, RHODA [facility] [id number] [facility] 2023-08-02 13:15:00 2023-08-02 13:45:57 Routine Visit Wren-Bethany s, Rhoda [facility] BUILDING 1.2.840.114 350.1.13.10 4.2.7.2.686 [id number] 134 [id number] [facility] 2023-07-19 10:45:00 2023-07-19 11:00:00 Collection Supervisor Visit 2, Adc Lab Wren-Bethany s, Rhoda [facility] BUILDING 1.2.840.114 350.1.13.10 4.2.7.2.686 [id number] [facility] 2023-07-19 10:45:00 2023-07-19 10:45:00 Outpatient R WREN-BETHANY S, RHODA WREN-BETHANY S, RHODA [facility] [id number] [facility] 2023-07-19 09:45:00 2023-07-19 10:00:00 Routine Visit Wren-Bethany s, Rhoda [facility] BUILDING 1.2.840.114 350.1.13.10 4.2.7.2.686 [id number] 134 [id number] [facility] 2023-07-16 16:00:00 2023-07-16 16:00:00 Outpatient R WREN-BETHANY S, RHODA WREN-BETHANY S, RHODA [facility] [id number] [facility] 2023-07-16 00:00:00 2023-07-16 00:00:00 Patient Secure Rhoda Solorzano [facility] 1.2.840.114 350.1.13.10 4.2.7.2.686 [id number] 134 [id number] [facility] 2023-07-09 08:45:00 2023-07-09 08:45:[address] [facility] [id number] [facility] 2023-06-18 16:15:00 2023-06-18 16:33:53 Outpatient R [facility]AIDA Nagy, [facility] [id number] [facility] 2023-06-18 16:15:00 2023-06-18 16:33:53 Routine Visit Zaida nagy [facility] 1.2.840.114 350.1.13.10 4.2.7.2.686 [id number] 134 [id number] [facility] 2023-06-17 00:00:00 2023-06-17 00:00:00 Patient Secure Rhoda Solorzano [facility] 1.2.840.114 350.1.13.10 4.2.7.2.686 [id number] 134 [id number] [facility] 2023-06-04 13:00:00 2023-06-04 14:00:00 Collection Supervisor Visit Ultrasound, Alfredo-Brook Herrera [facility] 1.2.840.114 350.1.13.10 4.2.7.2.686 [id number] [facility] 2023-06-04 13:00:00 2023-06-04 13:00:00 Outpatient P [place]OOK [place] SANGEETA [facility] [id number] [facility] 2023-05-30 13:15:00 2023-05-30 13:15:00 Outpatient R WREN-BETHANY S, RHODA WREN-BETHANY SPOLORHODA [facility] [id number] [facility] 2023-05-22 00:00:00 2023-05-22 00:00:00 [facility]..114 350.1.13.10 4.2.7.2.686 [id number] 134 [id number] [facility] 2023-05-06 00:00:00 2023-05-06 00:00:00 Patient Secure Msg Doctor Unassigned, [place] [facility] 1.114 350.1.13.10 4.2.7.2.686 [id number] 134 [id number] [facility] 2023-05-02 11:45:00 2023-05-02 12:06:47 Outpatient R HOLGER-BETHANY S, RHODA HOLGER-BETHANY SPOLORHODA [facility] [id number] [facility] 2023-05-02 11:45:00 2023-05-02 12:06:47 Routine Visit Rhoda Villar [facility] 1.114 350.1.13.10 4.2.7.2.686 [id number] 134 [id number] [facility] 2023-04-15 00:00:00 2023-04-15 00:00:00 Telephone Chelle Renteria [facility] 1.114 350.1.13.10 4.2.7.2.686 [id number] 134 [id number] [facility] 2023-04-15 00:00:00 2023-04-15 00:00:00 Patient Secure Msg Doctor Unassigned, [place] [facility] 1.2.840.114 350.1.13.10 4.2.7.2.686 [id number] 134 [id number] [facility] 2023-04-09 00:00:00 2023-04-09 00:00:00 Telephone Zaida nagy [facility] 1.2840.114 350.1.13.10 4.2.7.2.686 [id number] 134 [id number] [facility] 2023-04-09 00:00:00 2023-04-09 00:00:00 Patient Secure Msg Doctor Unassigned, [place] [facility] 1.2840.114 350.1.13.10 4.2.7.2.686 [id number] 134 [id number] [facility] 2023-04-05 11:30:00 2023-04-05 12:02:21 Outpatient R ZAIDA Nagy RHODA ZAIDA Nagy [facility] [id number] [facility] 2023-04-05 11:30:00 2023-04-05 12:02:21 Collection Supervisor Visit Lab, Alfredo nagy, [facility]HAEL PEREZ[facility] 1.2840.114 350.1.13.10 4.2.7.2.686 [id number] [facility] 2023-04-05 10:15:00 2023-04-05 10:15:[address] [facility] [id number] [facility] 2023-04-05 00:00:00 2023-04-05 00:00:00 Orders Only Doctor Unassigned, [place] [facility] 1.2840.114 350.1.13.10 4.2.7.2.686 [id number] [facility] 2023-04-04 13:15:00 2023-04-04 13:36:58 Outpatient R ZAIDA Nagy, [facility] [id number] [facility] 2023-04-04 13:15:00 2023-04-04 13:36:58 [facility] 1.2.840.114 350.1.13.10 4.2.7.2.686 [id number] 134 [id number] [facility] 2023-04-04 00:00:00 2023-04-04 00:00:00 Case [facility] 1.2.840.114 350.1.13.10 4.2.7.2.686 [id number] 134 [id number] [facility] 2023-04-04 00:00:00 2023-04-04 00:00:00 [facility] 1.2.840.114 350.1.13.10 4.2.7.2.686 [id number] [facility] 2023-04-02 08:30:00 2023-04-02 08:45:00 Collection Supervisor Visit Lab, Alfredo Alberts [facility] 1.2.840.114 350.1.13.10 4.2.7.2.686 [id number] [facility] 2023-04-02 08:30:00 2023-04-02 08:30:00 Outpatient R ZAIDA Nagy, RHODA Nagy, [facility] [id number] [facility] 2023-03-29 16:00:00 2023-03-29 16:00:[address] [facility] [id number] [facility] 2023-03-26 00:00:00 2023-03-26 00:00:00 Telephone Rhoda Villar [facility] 1.2.840.114 350.1.13.10 4.2.7.2.686 [id number] 134 [id number] [facility] 2023-03-08 00:00:00 2023-03-08 00:00:00 Telephone Rhoda Villar [facility] 1.2.840.114 350.1.13.10 4.2.7.2.686 [id number] 134 [id number] [facility] 2023-03-08 00:00:00 2023-03-08 00:00:00 Patient Secure Msg Doctor Unassigned, [place] [facility] 1.2.840.114 350.1.13.10 4.2.7.2.686 [id number] 134 [id number] [facility] 2023-03-07 15:00:00 2023-03-07 15:51:03 Outpatient R ZAIDA Nagy [facility] [id number] [facility] 2023-03-07 15:00:00 2023-03-07 15:51:03 Initial Visit Dwighti Rhoda nagy [facility] 1.2.840.114 350.1.13.10 4.2.7.2.686 [id number] 134 [id number] [facility] 2023-03-07 00:00:00 2023-03-07 00:00:00 Orders Only Doctor Unassigned, [place] [facility] 1.2.840.114 350.1.13.10 4.2.7.2.686 [id number] [facility] 2023-02-25 09:45:00 2023-02-25 09:45:[address] [facility] [id number] [facility] 2023-02-15 09:00:00 2023-02-15 09:00:00 Outpatient R WREN-BETHANY S, RHODA WREN-BETHANY S, RHODA [facility] [id number] [facility] 2023-02-14 08:00:00 2023-02-14 08:00:[address] [facility] [id number] [facility] 2023-02-14 00:00:00 2023-02-14 00:00:00 Telephone Mery Solares [facility] 1.0.114 350.1.13.10 4.2.7.2.686 [id number] [facility] 2023-02-13 13:50:00 2023-02-13 20:24:[address] [facility] ERT [id number] [facility] 2023-02-13 13:50:00 2023-02-13 20:24:[address] [facility] 1..114 350.1.13.10 4.2.7.2.686 [id number] [facility] 2023-02-13 13:01:00 2023-02-13 13:14:00 Emergency X [facility] ERT [id number] [facility] 2023-02-12 08:45:00 2023-02-12 08:45:[address] [facility] [id number] [facility] 2023-02-12 00:00:00 2023-02-12 00:00:00 Telephone Masoud [facility] 1..114 350.1.13.10 4.2.7.2.686 [id number] [facility] 2023-02-12 00:00:00 2023-02-12 00:00:00 Telephone Masoud [facility] 1.0.114 350.1.13.10 4.2.7.2.686 [id number] [facility] 2023-02-12 00:00:00 2023-02-12 00:00:00 Telephone Sergioxavier [facility] 1.2.840.114 350.1.13.10 4.2.7.2.686 [id number] [facility] 2023-02-11 13:45:00 2023-02-11 14:00:00 Collection Supervisor Visit [facility] 1.0.114 350.1.13.10 4.2.7.2.686 [id number] [facility] 2023-02-11 10:15:00 2023-02-11 11:12:25 Outpatient [facility] [id number] [facility] 2023-02-11 10:15:00 2023-02-11 11:12:25 Routine Visit Trimester, [facility] 1.840.114 350.1.13.10 4.2.7.2.686 [id number] 113 [id number] [facility] 2023-02-11 00:00:00 2023-02-11 00:00:00 [facility] 1.20.114 350.1.13.10 4.2.7.2.686 [id number] [facility] 2023-02-08 02:15:00 2023-02-08 04:47:00 Emergency X GOPI THORNEKHAN [facility] ERT [id number] [facility] 2023-02-08 02:15:00 2023-02-08 04:47:00 Emergency [facility] 1.2840.114 350.1.13.10 4.2.7.2.686 [id number] [facility] 2023-01-24 15:00:00 2023-01-24 15:00:00 Outpatient R WREN-BETHANY S, RHODA WREN-BETHANY S, RHODA [facility] [id number] [facility] 2023-01-15 09:45:00 2023-01-15 09:45:00 Outpatient R WILIAM BRAND [facility] [id number] [facility] 2023-01-11 10:00:00 2023-01-11 10:00:00 Outpatient R WREN-BETHANY S, RHODA WREN-BETHANY S, RHODA [facility] [id number] [facility] 2022-09-21 13:00:00 2022-09-21 13:00:00 Outpatient R KENIA DONALD CHERYAL [facility] [id number] [facility] 2022-06-29 14:15:00 2022-06-29 15:02:15 Outpatient R KENIA DONALD CHERYAL [facility] [id number] [facility] 2022-06-29 14:15:00 2022-06-29 15:02:15 Initial Visit Kenia Donald [facility] 1..840.114 350.1.13.10 4.2.7.2.686 [id number] 134 [id number] [facility] 2022-05-18 09:18:00 2022-05-18 09:56:00 Emergency Mona Garcia [facility] 1.2.840.114 350.1.13.10 4.2.7.2.686 [id number] [facility] 2022-05-18 09:18:00 2022-05-18 09:56:00 Emergency MONA WILSON [facility] ERT [id number] [facility] 2022-02-12 13:15:00 2022-02-12 13:15:[address] [facility] [id number] [facility] 2022-01-11 09:00:00 2022-01-11 09:43:54 Office Visit Aster [facility] 1.2.840.114 350.1.13.10 4.2.7.2.686 [id number] [facility] 2022-01-11 09:00:00 2022-01-11 09:43:54 Outpatient [address]ER LAGUNA [facility] [id number] [facility] 2022-01-11 09:00:00 2022-01-11 09:00:00 Outpatient [address] L[address]UNA [facility] [id number] [facility] 2022-01-10 13:15:00 2022-01-10 13:15:00 Outpatient MARISELA GALDAMEZNIRAVGEMINI [facility] [id number] [facility] 2022-01-10 13:15:00 2022-01-10 13:15:[address] [facility] [id number] [facility] 2022-01-09 14:00:00 2022-01-09 14:30:32 Office Visit Trace Silverio Deondre [facility] HAND [facility] 1..840.114 350.1.13.10 4.2.7.2.686 [id number] [facility] 2022-01-09 14:00:00 2022-01-09 14:30:32 Outpatient MARISELA GALDAMEZNIRAVGEMINI [facility] [id number] [facility] 2022-01-09 14:00:00 2022-01-09 14:30:32 Out[address]Z [facility] [id number] [facility] 2022-01-09 00:00:00 2022-01-09 00:00:00 Orders Only Doctor Unassigned, [place] [facility] 1.2.840.114 350.1.13.10 4.2.7.2.686 [id number] [facility] 2021-11-14 09:30:00 2021-11-14 09:30:00 [address]NA [facility] [id number] Lorena s [facility] Results Test Description Test Time Test Comments Results Result Co mments Source [facility]PH ONLY - [id number] 16:25:14* Test Item Value Reference Range Interpretation Comme nts RPR (Qualitative) (test code = 74722-4) Nonreactive Nonreactive Lab Interpretation (test cod e = 21648-7) Normal [facility] (D) IMMUNE [id number] 14:35:17* Test Item Value Reference Range Interpretation Comme nts RHIG CANDIDATE? (test code = 5188) No- see comment Patient is not a candidate for RhIg- Patient is Rh Positive.Performed at [facility] Laboratory Services - ADC Blood [address] [place] [id number] Free: [phone] No. [phone] [facility] Hospital[facility]atitis B Surface [id number] 10:09:19 * Test Item Value Reference Range Interpretation Comme nts HBsAg Semi-Quantitative (neeru t code = 5195-3) 0.04 Negative [facility] 1/2 Ag-Ab with [id number] 02:29:20* Test Item Value Reference Range Interpretation Comme nts HIV Semi-quantitative (test code = 97294-8) 0.08 Negative SONALI (test code = SONALI) Non-reactive for HIV-1 antigen and HIV-1/HIV-2 antibodies. ?No laboratory evidence of HIV infection. ?Repeat in 2-4 weeks if acute HIV infection is suspected. [facility] with [id number] 00:32:44* Test Item Value Reference Range Interpretation [...] 34.4 g/dL 31.6-35.1 RDW-SD (test code = 00562-0) 42.6 fL 39.0-49.9 RDW-CV (test code = 788-0) 14.2 % 12.0-15.5 PLT (test code = 777-3) 412 166-358 H MPV (test code = 01195-0) 9.3 fL 9.5-12.9 L NRBC/100 WBC (test code = 1508693313) 0.0 0.0-10.0 NRBC x10^3 (test code = 2810913622) See_Comment [Automated messa ge] The system which generated this result transmitted reference range: 10*3/?L. The reference range was not used to interpret this result as normal/abnormal. GRAN MAT (NEUT) % (test code = 770-8) 73.4 % IMM GRAN % (test code = 4925000889) 1.10 % LYMPH % (test code = 736-9) 18.6 % MONO % (test code = 5905-5) 5.5 % EOS % (test code = 713-8) 0.9 % BASO % (test code = 706-2) 0.5 % GRAN MAT x10^3(ANC) (test code = 0282873853) 7.75 10*3/uL 1.88-7.09 H IMM GRAN x10^3 (test code = 1641191486) 0.12 10*3/uL 0.00-0.06 H LYMPH x10^3 (test code = 731-0) 1.96 10*3/uL 1.32-3.29 MONO x10^3 (test code = 742-7) 0.58 10*3/uL 0.33-0.92 EOS x10^3 (test code = 711-2) 0.10 10*3/uL 0.03-0.39 BASO x10^3 (test code = 704-7) 0.05 10*3/uL 0.01-0.07 Lab Interpretation (test code = 98175-8) Abnormal [facility]Type and Screen - ONCE [id number] 00:27:00 * Test Item Value Reference Range Interpretation Comme nts ABO & RH (test code = 20) O POSITIVE IAT (test code = 1185) Negative [facility]PO[facility] Urinalysis w/o Specific [id number] 22:18:00* Test Item Value Reference Range Interpretation [...] = 3257) n/a Negative - Negati ve [facility] Urinalysis w/o Specific [id number] 22:18:00* Test Item Value Reference Range Interpretation [...] = 3257) n/a Negative - Negati ve [facility] Urinalysis w/o Specific [id number] 19:11:00* Test Item Value Reference Range Interpretation [...] internal controls Lab Interpretation (test code = 61346-4) [facility] Urinalysis w/o Specific Apcfkcz0932-46-32 18:52:00* Test Item Value Reference Range Interpretation [...] internal controls Lab Interpretation (test code = 29757-7) [facility] Urinalysis w/o Specific Kjddpxm9819-14-54 19:22:00* Test Item Value Reference Range Interpretation [...] = 3257) N/A Negative - Negati ve [facility] Urinalysis w/o Specific Eoicdvq6662-98-26 19:38:00* Test Item Value Reference Range Interpretation [...] = 3257) n/a Negative - Negati ve [facility] Urinalysis w/o Specific Vwwvnxr4417-58-51 16:19:00* Test Item Value Reference Range Interpretation [...] = 3257) n/a Negative - Negati ve [facility] Urinalysis w/o Specific Mkiatsb7894-06-77 16:19:00* Test Item Value Reference Range Interpretation [...] = 3257) n/a Negative - Negati ve [facility] URINALYSIS W/O SPECIFIC [id number] 22:20:00* Test Item Value Reference Range Interpretation [...] = 3257) n/a Negative - Negati ve [facility] URINALYSIS W/O SPECIFIC [id number] 16:58:00* Test Item Value Reference Range Interpretation [...] = 3257) n/a Negative - Negati ve [facility] URINALYSIS W/O SPECIFIC [id number] 16:58:00* Test Item Value Reference Range Interpretation [...] = 3257) n/a Negative - Negati ve [facility] URINALYSIS W/O SPECIFIC [id number] 18:14:00* Test Item Value Reference Range Interpretation [...] = 3257) n/a Negative - Negati ve [facility] URINALYSIS W/O SPECIFIC [id number] 18:14:00* Test Item Value Reference Range Interpretation [...] = 3257) n/a Negative - Negati ve [facility] URINALYSIS W/O SPECIFIC [id number] 20:44:00* Test Item Value Reference Range Interpretation [...] = 3257) N/A Negative - Negati ve [facility] [id number] 20:43:00* Test Item Value Reference Range Interpretation Comme nts POCT PREG (test code = 1605) Positive On board controls acceptable with C Line (test code = 3574) Yes POCT PREG LOT # (test code = 3575) POCT PREG TEST DATE ( test code = 3576) [facility] Confirmation (Lab Only)2023-02-13 23:59:00* Test Item Value Reference Range Interpretation Comme nts ABO & RH (test code = 20) O Positive [facility] BETA HCG [id number] 22:07:06* Test Item Value Reference Range Interpretation Comme nts BETA HCG (test code = 6579287999) 62506.00 See_Comment [Automated LiBa ge] The system which generated this result transmitted reference range: Non- female and male patients: <5 mIU/mL. The reference range was not used to interpret this result as normal/abnormal. SONALI (test code = SONALI) Gestational Age ?Range (mIU/mL) 1-10 ?Weeks ?93-15998906-82 Weeks ?84284-04676905-77 Weeks ?9870-70163385-98 Weeks ?8455-017310 Biotin has been reported to cause a negative bias, interpret results relative to patient's use of biotin. [facility] METABOLIC PANEL (NA, K, CL, CO2, GLUCOSE, BUN, CREATININE, CA)2023-02-13 21:29:48* Test Item Value Reference Range Interpretation Comme nts NA (test code = 2965895138) 136 mmol/L 135-145 K (test code = 0566170141) 3.9 mmol/L 3.5-5.0 CL (test code = 8746182517) 107 mmol/L 98-108 CO2 TOTAL (test code = 2002243848) 23 mmol/L 23-31 AGAP (test code = 4752535320) 6 2-16 BUN (test code = 1136165554) 9 mg/dL 7-23 GLUCOSE (test code = 8822572463) 80 mg/dL 70-110 CREATININE (test code = 5185658361) 0.45 mg/dL 0.50-1.04 L CALCIUM (test code = 0618955405) 8.9 mg/dL 8.6-10.6 eGFR (test code = 7835199901) 175.9 mL/min/1.73m2 SONALI (test code = SONALI) [...] imaging tests). Lab Interpretation (test code = 66133-7) Abnormal [facility] WITH [id number] 21:21:23* Test Item Value Reference Range Interpretation Comme nts WBC (test code = 6690-2) 7.74 See_Comment [Automated [employer]] The system which generated this result transmitted reference range: 4.30 - 11.10 10*3/?L. The reference range was not used to interpret this result as normal/abnormal. RBC (test code = 789-8) 4.32 See_Comment [Automated [employer]] The system which generated this result transmitted [...] g/dL 31.6-35.1 H RDW-SD (test code = 21311-8) 38.4 fL 39.0-49.9 L RDW-CV (test code = 788-0) 12.5 % 12.0-15.5 PLT (test code = 777-3) 451 See_Comment H [Automated LiBa ge] The system which generated this result transmitted reference range: 166 - 358 10*3/?L. The reference range was not used to interpret this result as normal/abnormal. MPV (test code = 59658-2) 8.5 fL 9.5-12.9 L IPF % (test code = 7629304955) 1.0 % 1.3-7.7 L Platelet count measured by fluorescence method. NRBC/100 WBC (test code = 1154528353) 0.0 See_Comment [Automated [employer] ssage] The system which generated this result transmitted reference range: 0.0 - 10.0 /100 WBCs. The reference range was not used to interpret this result as normal/abnormal. NRBC x10^3 (test code = 8774924614) See_Comment [Automated [employer]] The system which generated this result transmitted reference range: 10*3/?L. The reference range was not used to interpret this result as normal/abnormal. GRAN MAT (NEUT) % (test code = 770-8) 51.3 % IMM GRAN % (test code = 9516610136) 0.40 % LYMPH % (test code = 736-9) 41.7 % MONO % (test code = 5905-5) 4.9 % EOS % (test code = 713-8) 1.3 % BASO % (test code = 706-2) 0.4 % GRAN MAT x10^3(ANC) (test code = 6492555890) 3.97 10*3/uL 1.88-7.09 IMM GRAN x10^3 (test code = 1535777898) 0.03 10*3/uL 0.00-0.06 LYMPH x10^3 (test code = 731-0) 3.23 10*3/uL 1.32-3.29 MONO x10^3 (test code = 742-7) 0.38 10*3/uL 0.33-0.92 EOS x10^3 (test code = 711-2) 0.10 10*3/uL 0.03-0.39 BASO x10^3 (test code = 704-7) 0.03 10*3/uL 0.01-0.07 Lab Interpretation (test code = 77014-2) [facility] [id number] 21:14:00 * Test Item Value Reference Range Interpretation Comme nts ABO & RH (test code = 20) O POSITIVE IAT (test code = 1185) Negative [facility] [id number] 20:09:00* Test Item Value Reference Range Interpretation Comme nts POCT PREG (test code = 1605) Negative Not recorded per staff On board controls acceptable with C Line (test code = 3574) Yes POCT PREG LOT # (test code = 3575) POCT PREG TEST DATE (test code = 3576) [facility] [id number] 14:24:00* Test Item Value Reference Range Interpretation Comme nts POCT PREG (test code = 1605) negative On board controls acceptable with C Line (test code = 3574) present POCT PREG LOT # (test code = 3575) [id number] POCT PREG TEST DATE ( test code = 3576) 09-26-2023 Lab Interpretation (test cod e = 15752-9) Normal [facility] History and Physical Notes Date/Time Note Provider Source 2023-10-03 17:22:19 ANTEPARTUM HISTORY & PHYSICAL IDENTIFYING DATA Marie Engel is 23 year old, /White, 39w0d, female with THERON 10/10/2023, by Last Menstrual Period. : 2000 Primary Care Physician: [facility] Day: 1 CHIEF COMPLAINT contractions HISTORY OF PRESENT ILLNESS 23 year old @39w0d presents with painful contractions. Denies VB or LOF PAST OBSTETRIC HISTORY OB History Para Term AB Living 4 1 1 0 2 1 SAB IAB Ectopic Multiple Live Births 2 0 0 0 1 # Outcome Date GA Lbr Wally/2nd Weight Sex Delivery Anes PTL Lv 4 Current 3 SAB 12/2022 2 SAB 2021 1 Term 03/02/18 40w0d 4167 g [...] ?C (98.6 ?F)] Temp source: Axillary (10/02 1653) Pulse: [84-105] Resp: [16-22] SpO2: [99 %-100 [...] as desired Reassuring status Rhoda Krishnamurthy MD BUILDER [facility] Notes Date/Time Note Provider Source 2024-05-06 11:15:00 Images from the original note were not included. Venipuncture collection performed by clean technique on the left anticubitus. Total of 1 attempts were made. Slight pressure and a bandage/dressing were applied to the site(s). The patient experienced no complications. The following specimens were processed according to instructions and sent to [facility] laboratories per lab order on 05/06/2024: LT BLUE SST 1 RED LAV 2 PPT DK GREEN (LiHep) DK GREEN (SodH) SANZ DK BLUE (K2) DK BLUE (S) ACD Blood Culture NIPT/NTD [facility] 2023-10-05 09:02:25 Problem: Falls, Risk of [...] Za Prasad RN Outcome: Progressing as expected [facility] Za Prasad RN [facility] 2023-10-05 08:00:03 Problem: Falls, Risk of [...] Absence of complications Outcome: Progressing as expected [facility] 2023-10-04 21:33:16 Problem: Discharge Planning - Goal: Adequate for discharge Outcome: Progressing as expected Goal: Mood stable Outcome: Progressing as expected Problem: Complications of hemorrhage (risk or actual) Goal: Absence of active bleeding Outcome: Progressing as expected Goal: Absence of complications Outcome: Progressing as expected [facility] 2023-10-04 21:32:03 Problem: Intrapartum process (including labor pain) Goal: Absence of or reduction of complications of labor Outcome: Resolved Goal: Able to cope with pain Outcome: Resolved Goal: Adequate to move to next level of care Outcome: Resolved Goal: Reduction in pain sensation Outcome: Resolved Problem: Falls, Risk of Goal: Absence of falls Outcome: Progressing as expected [facility] 2023-10-04 15:00:00 This note was copied from a baby's chart. Evaluation Situation Initial visit Background Baby boy is 13 hours old, born weighing 2790g. Gestational Age: 39w1d at INFANT FEEDING STATUS Formula supplementation via MATERNAL STATUS Assessment, Recommendations, Education Visited mom to discuss breast care for non mothers. Mom states she does plan to breastfeed but has not tried yet. I discussed with mom the importance of starting early to avoid a delay in milk production and nipple confusion for . I explained to mom that breast milk is based off of supply and demand. Meaning the more the empties the breast the more milk she will make. Mom was encouraged to breastfeed infant at least 8-12 times a day to build and maintain her milk supply. Mom states just finished a bottle and is not hungry at this time but will attempt at the next feeding. education provided. All questions answered. Mom does not have any other questions or concerns at this time. Mom instructed on how to contact [employer] for assistance with feedings or to answer questions while in the hospital. Mom verbalized understanding. KWASI La, RN, IBCLC [facility] Afia Garzon RN [facility] 2023-10-04 01:17:49 DELIVERY BY SPONTANEOUS VAGINAL [...] shoulder and body. After the delivery of , bulb suction was performed from ororpharynx and nostril with removal of clear amniotic fluid. A normal, male was delivered. The umbilical cord was double clamped, cut and the infant was handed off the field to the [...] 5 Minute 10 Minute Totals: 8 9 [facility] 2023-10-03 22:08:09 Problem: Intrapartum process (including labor [...] Absence of falls Outcome: Progressing as expected [facility] 2023-10-03 21:12:15 Intrapartum Progress Note 10/03/2023 9:12 [...] movement: Yes Mode: EFM Uterine Activity: Mode: [place] Contractions (number / 10 minute): 4 Contraction duration (seconds): 50-60 Contraction quality: Moderate, Palpation Resting tone: Soft, Palpation Membrane Status Membrane status: Artificial Rupture date: 10/03/23 Rupture time: 1730 Amniotic fluid color: Clear Cervical Exam 4 / 90 % / -2 AROM--clear Assessment/Plan: Marie Engel is a 23 year old at 39w0d Continue with Pitocin Reassuring status Rhoda Krishnamurthy MD [facility] 2023-10-03 20:01:35 Name/ MRN / Age / Gender: Marie Engel [id number] 23 year old female BMI: Estimated body [...] listed * Procedure: LABOR CONSULT OR Location: [place] [facility] OUT OF OR - OR LOCATION Anesthesia History (-) Hx of anesthetic complications Previous Anesthetics/Airways Cardiovascular Negative Cardiac ROS Pulmonary Negative Pulmonary ROS Neuro/Musculoskeletal Negative Neuro/Musculosketal ROS GI/Hepatic Negative GI/Hepatic ROS Hematology Negative Hematology ROS Renal Negative Renal ROS Skin Negative Skin ROS Endo/Other Negative Endo/Other ROS Other HAND 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 Hold on DOS. Phentermine: Alert [facility] anesthesiologist SGLT2 Inhibitors: "gliflozins" to be [...] Post-Operative Analgesia: Recovery Plan: LDR Additional comments: BUILDER AN-ANESTHESIOLOGY ANESTHESIOLOGIST [facility] 2023-10-03 14:23:48 Patient reports that she has been having contractions since 0930. 7 minutes apart. A1 [facility] patient Contacted Noemy and updated on patient condition. Patient transported by wheelchair to the department. BUILDER Gwen Dunn RN [facility] 2023-10-03 13:17:54 Pt stated that her back pain started this morning 03/07 and has vaginal pressure. Denies vaginal discharge, bleeding or leakage of fluid. Instructed to go to L&D to be evaluated. Verbalized understanding. Mary Kate at L&D advised. Verbalized understanding. NICKY SOTO RN 10/03/2023 1:18 PM BUILDER Nicky Soto RN [facility] 2023-10-03 13:12:39 Patient calling says she having back pain and pressure want to be seen is due for induciton tomorrow also want to discuss anemia. BUILDER Susan Castro [facility] 2023-10-03 10:15:00 Images from the original note were not included. Venipuncture collection performed by clean technique on the left anticubitus. Total of 1 attempts were made. Slight pressure and a bandage/dressing were applied to the site(s). The patient experienced no complications. The following specimens were processed according to instructions and sent to [facility] laboratories per lab order on 10/03/2023 : LT BLUE SST RED LAV 1 PPT DK GREEN (LiHep) DK GREEN (SodH) SANZ DK BLUE (K2) DK BLUE (S) ACD Blood Culture NIPT/NTD [facility] 2023-09-30 16:06:10 Patient running late for appt. Chelle Renteria RN 09/30/2023 4:06 PM BUILDER Chelle Renteria RN [facility] 2023-09-30 16:00:00 ROUTINE VISIT 09/30/2023 4:31 PM CHELSEY Engel is a 23 year [...] or guarding Ext: No calf tenderness : /-3 ASSESSMENT: Marie Engel is a 23 year old at 38w4d who presents for routine visit. Patient Active Problem List Diagnosis Low TSH level ASB (asymptomatic bacteriuria) High-risk in first trimester Rubella non-immune status, antepartum PLAN 1. Normal , antepartum 2. 38 weeks gestation of - POCT Urinalysis w/o Specific [place] [facility] 2023-09-24 16:00:00 ROUTINE VISIT 09/24/2023 6:14 PM CHELSEY Engel is a 23 year [...] gestation of - POCT Urinalysis w/o Specific [place] 2. Normal , antepartum --Reviewed labor warnings --GBS negative --scheduled for IOL on 10/03 . --All questions answered [facility] 2023-09-16 13:00:00 ROUTINE VISIT 09/16/2023 1:14 PM [...] gestation of - POCT Urinalysis w/o Specific [place] - Cbc with Diff; Future 2. Normal , antepartum --GBS negative --Reviewed labor warnings and indications to go to hospital --Patient desires in IOL@39 weeks, set for 10/04/23 unless otherwise clinically indicated. --All questions answered BUILDER [facility] 2023-09-10 21:35:00 Pt arrives to ED [...] Dr. Gabriel notified of pt status at 215. Orders for IV fluids, GBS, GC/chlamydia, wet [...] No signs of distress noted with patient. BUILDER Princess Lozada RN [facility] 2023-09-10 21:14:16 Pt arrives ambulatory to ED reporting abd pain, contractions & vaginal pressure that began around noon she says. Reports 8 min between contractions. Pt of Dr Krishnamurthy Report called to Eugenia on L&D charge phone. BUILDER Mary Kate Garcia RN [facility] 2023-09-02 13:00:00 ROUTINE VISIT 09/02/2023 2:22 [...] gestation of - POCT Urinalysis w/o Specific [place] 2. Normal , antepartum -- 3rd trimester labs ordered --Reviewed with patient FAC -- labor warnings reviewed --All questions answered BUILDER [facility] 2023-08-28 18:00:01 With increased abdominal pressure with Bowel movements you can have some cervical mucous pass. If no contractions or bleeding recommend a cervix check at next concepcion.t BUILDER [facility] 2023-08-22 20:03:25 Pt 33 weeks , , states she lost mucous plug and Holger ely wanted her to come and get checked in Report to RANDOLPH Walker Pt transported to L&D via WC with ED PCT BUILDER Vanita Wagner RN [facility] 2023-08-22 10:21:31 Dea in L&D advised and verbalized understanding. NICKY SOTO RN 08/22/2023 10:21 AM BUILDER Nicky Soto RN [facility] 2023-08-16 13:30:00 ROUTINE VISIT 08/16/2023 1:56 PM SUBJECTIVE Marie Engel is a 23 [...] gestation of - POCT Urinalysis w/o Specific [place] 2. Normal , antepartum --Reviewed with patient FAC -- labor warnings reviewed --All questions answered BUILDER [facility] 2023-08-02 13:15:00 ROUTINE VISIT 08/02/2023 2:58 PM SUBJECTIVE Marie Engel is a 23 [...] gestation of - POCT Urinalysis w/o Specific [place] 2. Normal , antepartum --Reviewed 3rd trimester labs --Reviewed with patient FAC -- labor warnings reviewed --All questions answered [facility] 2023-07-19 10:45:00 Loaded pt w 50gm glucola, no issues. [facility] 2023-07-19 10:45:00 Images from the original note were not included. Venipuncture collection performed by clean technique on the left anticubitus. Total of 1 attempts were made. Slight pressure and a bandage/dressing were applied to the site(s). The patient experienced no complications. The following specimens were processed according to instructions and sent to [facility] laboratories per lab order on 07/19/2023 : LT BLUE SST 2 RED 1 LAV 2 PPT DK GREEN (LiHep) DK GREEN (SodH) SANZ DK BLUE (K2) DK BLUE (S) ACD Blood Culture NIPT/NTD [facility] 2023-07-19 09:45:00 ROUTINE VISIT 07/19/2023 10:26 AM [...] gestation of - POCT Urinalysis w/o Specific [place] 2. Normal , antepartum --tdap vaccine given. 3. Rubella non-immune status, antepartum [facility] 2023-07-19 09:45:00 Addended by: WAI BOGGS MA on: 07/19/2023 10:32 AM Modules accepted: Orders [facility] 2023-04-15 10:06:36 Formatting of this n ote might be different from the original. Petros results received via fax. Panorama- low risk Horizon- negative for 14 out of 14 diseases Spoke with patient, name and verified. Patient informed of results excluding gender. Results placed in an envelope and left at the senior front end developer for patient sheepskin pickler. Results signed, will scan and upload a copy to [facility]. Chelle Renteria RN 04/15/2023 10:07 AM Chelle Renteria RN [facility] 2023-04-09 17:01:18 Formatting of this n ote might be different from the original. Attempted to contact patient by phone, no answer, message left on voicemail to call back. Chelle Renteria RN 04/09/2023 5:01 PM Chelle Renteria RN [facility] 2023-04-09 10:31:35 Formatting of this n ote might be different from the original. Would recommend using Miralex for next few days to help with constipation to help prevent pain. [facility] 2023-04-09 10:15:23 Formatting of this n [...] recommendations. Chelle Renteria RN 04/09/2023 10:21 AM T [facility] 2023-04-09 10:11:12 Formatting of this n ote might be different from the original. Patient called need to speak to nurse, experiencing cramps 13 weeks pg. Please advise Keli Alejandro [facility] 2023-04-05 11:30:00 Formatting of this n ote is different from the original. Images from the original note were not included. Venipuncture collection performed by clean technique on the right anticubitus. Total of 1 attempts were made. Slight pressure and a bandage/dressing were applied to the site(s). The patient experienced no complications. The following specimens were processed according to instructions and sent to [facility] laboratories per lab order on 04/05/2023 : Petros collected and shipped. LT BLUE SST 2 RED LAV 1 PPT DK GREEN (LiHep) DK GREEN (SodH) SANZ DK BLUE (K2) DK BLUE (S) ACD Blood Culture NIPT/NTD Andres Rose [facility] 2023-04-04 15:45:43 Formatting of this n ote might be different from the original. Spoke with patient, confirmed patient 13 weeks and 0 days today. No other questions or concerns expressed. Chelle Renteria RN 04/04/2023 3:46 PM Chelle Renteria RN [facility] 2023-04-04 15:14:13 Formatting of this n ote might be different from the original. Pt want to go over who many weeks she is Susan Castro [facility] 2023-04-04 13:15:00 Formatting of this n [...] 0 4. ASB (asymptomatic bacteriuria) --Pt will sheepskin pickler abx today 5. Rubella non-immune status, antepartum --Plan MMR vaccine pp --Questions answered Rhoda Krishnamurthy MD [facility] [employer] 2023-04-04 13:15:00 Addended by: AMANDA MARQUEZ on: 04/04/2023 02:02 PM Modules accepted: Orders [facility] [employer] [facility] 2023-04-02 08:30:00 Formatting of this n ote is different from the original. Images from the original note were not included. Venipuncture collection performed by clean technique on the right anticubitus. Total of 1 attempts were made. Slight pressure and a bandage/dressing were applied to the site(s). The patient experienced no complications. The following specimens were processed according to instructions and sent to [facility] laboratories per lab order on 04/02/2023 : LT BLUE SST 3 RED 1 LAV 3 PPT DK GREEN (LiHep) DK GREEN (SodH) SANZ DK BLUE (K2) DK BLUE (S) ACD Blood Culture NIPT/NTD Patient has been identified by and was provided with cup, antiseptic towelette, and clean catch instructions. 2 urine specimen(s) sent. Unpreserved 1 Urine Culture 1 Aptima tube Other urine T [facility] 2023-03-29 08:47:01 Formatting of this n ote might be different from the original. Unable to leave voice mail due to inbox not being set up. T [facility] 2023-03-27 16:53:04 Formatting of this n ote might be different from the original. Unable to leave voice mail due to inbox not being set up. [facility] 2023-03-26 14:22:25 Formatting of this n ote might be different from the original. Attempted to contact pt back x 1. No voicemail available to leave message. Amanda Marquez MA [facility] 2023-03-26 14:14:39 Formatting of this n ote might be different from the original. Pt calling says she need usg entered diff due to her wanting to get it done sooner she was saying there an issue w order is she want it sooner that clinic need to call usg dept Susan Castro [facility] 2023-03-08 16:35:48 Formatting of this n ote might be different from the original. Images from the original note were not included. Rx electronically sent. [facility] 2023-02-14 07:28:04 Formatting of this n ote might be different from the original. Called pt to schedule appt requested by Dr. Donald, no answer could not leave a message Angy [place] [facility] 2023-02-14 07:25:54 Formatting of this n [...] Eugenia Donald MD Obstetrics and Gynecology, PGY-4 [facility] 2023-02-13 20:19:12 Formatting of this n ote might be different from the original. RN and pt reviewed dc instructions. Pt verbalized understanding. Pt advised to attend follow up appointments as scheduled. Pt advised to follow new med regimen. Pt denied any remaining belongings in the ED. PT ambulated to lobby with steady gait. NAD noted upon departure. Mere Stark RN [facility] 2023-02-13 19:35:39 Formatting of this n ote might be different from the original. Pt pending completion of NS. [facility] 2023-02-13 18:57:54 Formatting of this n ote might be different from the original. Report given Rina Hammonds. Bella Aceves RN [facility] 2023-02-13 18:10:00 Formatting of this n ote might be different from the original. Per OB they are clear on their end. Pt to provide urine sample. Updated on POC. Denies current needs. Call light in reach. Sitting up in bed speaking to visitor. [facility] 2023-02-13 17:55:00 Formatting of this n ote might be different from the original. Pt ambulatory from triage for possible ectopic .. Per triage nurse pt pending urine and OB consult who is currently bedside. Pt AAO, respirations even and unlabored. Denies current needs. Speaking with OB [facility] 2023-02-13 13:48:11 Formatting of this n [...] due to ED saturation. Niles Torres RN [facility] 2023-02-13 13:38:00 Formatting of this n ote is different from the original. 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 Complained of R sided pain and was [...] was performed including color Doppler evaluation with inbound call center representative images obtained. 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 Orders Placed This Encounter Medications acetaminophen (TYLENOL) tablet 325 mg cefdinir (OMNICEF) capsule 300 mg NaCl 0.9% (NS) IV infusion 1,000 mL cefdinir 300 mg capsule 26-iron [id number]-unz 29 mg iron- 1 mg-200 mg per capsule First Provider Eval: ED Events Date/Time Event User Comments 02/13/23 1406 Medical Screening Begins ESDRAS LANE MD -- 02/13/23 1406 First Provider Evaluation ESRDAS LANE MD -- ED COURSE ED Course as of 02/13/231902Feb 13, 2023 183 BETA HC,986.00 Doubled from last bHCG appropriately [AC] 1837 PLT x10^3(!): 451 Reactive, likely in setting [...] 12 (twelve) hours for 7 days. 26-IRON [id number] 29 MG IRON- 1 MG-200 MG PER [...] PCP - General PCP - Insurance HMO [address] [place] [id number] Electronically signed by: Anna Brown DO Internal Medicine PGY-3, [facility] Anna Brown DO 02/13/231902 Anna Brwon DO 02/13/231903 Associated attestation - Esdras Lane [...] Note reviewed Dr. Esdras Lane MD, FACEP [facility] 2023-02-13 13:38:00 Formatting of this n [...] Prescription drug management. Esdras Lane MD 02/13/231952 [facility] 2023-02-13 10:45:51 Formatting of this n [...] RN 02/13/2023 10:54 AM Eileen Wong RN [facility] 2023-02-12 14:42:51 Formatting of this n [...] need to determine the location of your T [facility]
[2024-10-19] MEDS ORDERED: NA CHLORIDE 0.9% 1,000 ML ONE
[2024-10-19 00:24] LABS: Specific Gravity 1.028 (1.005-1.030)
[2024-10-19 00:26] LABS: Absolute Basophils 0.1 K/uL (0-0.5); Absolute Eosinophils 0.1 K/uL (0-0.5); Absolute Lymphocytes (CBC) 3.5 K/uL (0.7-4.9); Absolute Monocytes 0.4 K/uL (0.1-1.3); Absolute Neutrophil 5.3 K/uL (1.8-8.0); Basophils % 0.7 % (0-1.3); Eosinophils % 1.3 % (0-4.4); Hematocrit 43.3 % (36.0-45.0); Hemoglobin 15.3 g/dL (12.0-15.0); Lymphocytes % 37.7 % (15.3-44.8); MCH 28.9 pg (27.0-35.0); MCHC 35.4 g/dL (32.0-36.0); MCV 81.7 fL (80-100); MPV 7.1 fL (7.6-11.3); Monocytes % 3.8 % (3.3-12.3); Neutrophils % 56.5 % (41.7-73.7); Nucleated Red Blood Cells % 0.1 % (0-0); Platelets 495 thou/uL (152-406); Red Cell Distribution Width 14.3 % (12.1-15.2)
[2024-10-19 00:34] LABS: Specific Gravity 1.028 (1.005-1.030); Urine Bacteria None Seen /HPF (<20); Urine Bilirubin NEGATIVE (Negative); Urine Blood Negative (Negative); Urine Clarity Extremely Turbid (Clear); Urine Color Yellow (Yellow); Urine Culture Reflex Order NOT NEEDED; Urine Glucose NEGATIVE (Negative); Urine Ketones NEGATIVE (Negative); Urine Microscopic Reflex YN ORDER UMIC; Urine Mucus 1+ /HPF (None Seen); Urine Nitrite NEGATIVE (Negative); Urine Protein TRACE (Negative); Urine RBC None Seen /HPF (None Seen); Urine Urobilinogen 1+ (Normal); Urine WBC <5 /HPF (<5)
[2024-10-19 00:43] LABS: Albumin 3.9 g/dL (3.4-5.0); Anion Gap 9.6 mEq/L (5.0-15.0)
[2024-10-19 00:50] LABS: Albumin/Globulin Ratio 0.8 (1.1-1.8); Bilirubin Total 0.6 mg/dL (0.2-1.0); Globulin 4.6 g/dL (2.3-3.5); Protein, Total 8.5 g/dL (6.4-8.2)
[2024-10-19 00:51] LABS: Potassium 3.6 mEq/L (3.5-5.1)
[2024-10-19] MEDS ORDERED: ONDANSETRON 4 MG/2 ML VIAL ONE (01:59)
[2024-10-19] MEDS ORDERED: KETOROLAC 30 MG/ML INJ ONE (01:59)
--- NOTE | 2024-10-19 02:44 | RAD REPORT ---
EXAM: CT Abdomen and Pelvis With Intravenous Contrast CLINICAL HISTORY: The patient is 24 years old and is Female; ABD PAIN TECHNIQUE: Axial computed tomography images of the abdomen and pelvis with intravenous contrast. Sagittal and coronal reformatted images were created and reviewed. This CT exam was performed using one or more of the following dose reduction techniques: automated exposure control, adjustmen t of the mA and/or kV according to patient size, and/or use of iterative reconstruction technique. COMPARISON: No relevant prior studies available. FINDINGS: Lung bases: Unremarkable. No mass. No consolidation. ABDOMEN: Liver: Unremarkable. No mass. Gallbladder and bile ducts: Unremarkable. No calcified stones. No ductal dilation. Pancreas: Unremarkable. No mass. No ductal dilation. Spleen: Unremarkable. No splenomegaly. Adrenals: Unremarkable. No mass. Kidneys and ureters: Unremarkable. No solid mass. No hydronephrosis. Stomach and bowel: Unremarkable. No obstruction. No mucosal thickening. PELVIS: Appendix: No findings to suggest acute appendicitis. Bladder: Unremarkable. Reproductive: Unremarkable as visualized. ABDOMEN and PELVIS: Intraperitoneal space: Unremarkable. No free air. No significant fluid collection. Bones/joints: No acute fracture. No dislocation. Soft tissues: Unremarkable. Vasculature: Unremarkable. No abdominal aortic aneurysm. Lymph nodes: Unremarkable. No enlarged lymph nodes. IMPRESSION: No acute finding in the abdomen/pelvis. Electronically signed by: Niles Rodriguez MD 10/19/2024 02:40 AM [facility] 8 Due to temporary technical issues with the PACS/iAmplify reporting system, reports are being lucretia d by the in-house radiologist without review as a courtesy to ensure prompt reporting the interpreting radiologist is fully responsible for the content of the report. Transcribed Date/Time: 10/19/2024 2:43 AM
--- NOTE | 2024-10-19 03:16 | ER ---
Nurse's Notes [facility] Name: Marie Gann Age: 24 yrs Sex: Female : 2000 Arrival Date: 10/18/2024 Time: 23:06 Bed 14 Private MD: Diagnosis: Acute pelvic pain, acute lower back pain, near syncopal episode Presentation: 10/18 23:41 Chief complaint: Patient states: pass couple of weeks, light headed and dizzy, vc1 abdominal pain. almost passed out. Coronavirus screen: Client denies travel out of the [place] in the last 14 days. nausea, Client presents with at least one sign or symptom that may indicate coronavirus-19. Ebola Screen: Patient negative for fever greater than or equal to 101.5 degrees Fahrenheit, and additional compatible Ebola Virus Disease symptoms Patient denies exposure to infectious person. Patient denies travel to an Ebola-affected area in the 21 days before illness onset. No symptoms or risks identified at this time. Initial Sepsis Screen: Does the patient meet any 2 criteria? No. Patient's initial sepsis screen is negative. Does the patient have a suspected source of infection? No. Patient's initial sepsis screen is negative. Risk Assessment: Do you want to hurt yourself or someone else? Patient reports no desire to harm self or others. Onset of symptoms is unknown. 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 - Infectious Disease History:: Denies. - Social history:: Smoking status: Patient denies any tobacco usage or history of. - Family history:: not pertinent. Screenin:44 [facility] ED Fall Risk Assessment (Adult) History of falling in the last 3 months, vc1 including since admission No falls in past 3 months (0 pts) Confusion or Disorientation No (0 pts) Intoxicated or Sedated No (0 pts) Impaired Gait No (0 pts) Mobility Assist Device Used No (0 pt) Altered Elimination No (0 pt) Score/Fall Risk Level 0 - 2 = Low Risk Oriented to surroundings, Maintained a safe environment, Educated pt \T\ family on fall prevention, incl call for assistance when getting out of bed. Abuse screen: Denies threats or abuse. Nutritional screening: No deficits noted. Tuberculosis screening: No symptoms or risk factors identified. Assessment: 10/19 00:12 General: Appears in no apparent distress. Behavior is calm, cooperative. Pain: ay Complains of pain in pelvis Pain radiates to back Pain currently is 8 out of 10 on a pain scale. Neuro: Level of Consciousness is awake, alert, obeys commands, Oriented to person, place, time, situation, Speech is normal. Cardiovascular: Denies chest pain. Respiratory: Reports shortness of breath. GI: Bowel sounds present X 4 quads. Abd is soft and non tender X 4 quads. : No signs and/or symptoms were reported regarding the genitourinary system. EENT: No signs and/or symptoms were reported regarding the EENT system. Vital Signs: 10/18 23:41 Weight 68.95 kg; Height 5 ft. 4 in. ; Pain 8/10; vc1 23:46 BP 118 / 93; Pulse 86; Resp 18; Temp 98.3; Pulse Ox 100% ; vc1 10/19 00:30 BP 111 / 81; Pulse 80; Resp 16; Pulse Ox 100% on R/A; ay 01:00 BP 117 / 87; Pulse 93; Resp 17; Pulse Ox 96% on R/A; ay 02:00 BP 119 / 92; Pulse 79; Resp 16; Pulse Ox 100% ; ay 03:00 BP 124 / 92; Pulse 73; Resp 14; Pulse Ox 99% on R/A; ay 10/18 23:41 Body Mass Index 26.09 (68.95 kg, 162.56 cm) vc1 10/18 23:41 Pain Scale: Adult vc1 Maurice Coma Score: 10/20 01:22 Eye Response: spontaneous(4). Motor Response: obeys commands(6). Verbal Response: sp4 oriented(5). Total: 15. ED Course: 10/18 23:08 Patient arrived in ED. [id number] 23:17 Zen Kowalski MD is Attending Physician. sp4 23:43 Triage completed. vc1 23:43 Arm band placed on right wrist. vc1 23:58 Zach Coleman, RANDOLPH is Primary Nurse. ay 10/19 00:11 CBC with Diff Sent. ay 00:11 CMP Sent. ay 00:11 Lipase Sent. ay 00:12 Inserted saline lock: 20 gauge in right antecubital area, using aseptic technique. ay 01:46 CT Abd/Pelvis - IV Contrast Only In Process Unspecified. EDMS 03:00 IV discontinued, intact, bleeding controlled, No redness/swelling at site. Pressure ay dressing applied. Administered Medications: 00:11 Drug: NS 0.9% IV 1000 ml IV at 1 bolus Per protocol; to be given as a bolus over 60 ay minutes Route: IV; Rate: 1 bolus; Site: right antecubital; 03:39 Follow up: IV Status: Completed infusion ay 02:05 Drug: Ondansetron IVP 4 mg IVP once; over 2 minutes Route: IVP; Site: right antecubital;ay 03:38 Follow up: Response: No adverse reaction ay 02:05 Drug: Ketorolac IVP 30 mg IVP once Route: IVP; Site: right antecubital; ay 03:38 Follow up: Response: No adverse reaction ay Medication: 10/18 23:45 VIS not applicable for this client. vc1 Outcome: 10/19 03:00 Discharged to home ambulatory, ay Condition: stable Discharge instructions given to patient, Instructed on discharge instructions, Demonstrated understanding of instructions, follow-up care, medications, Prescriptions given X 2, 03:15 Discharge ordered by . sp4 03:39 Patient left the ED. ay Signatures: Dispatcher [employer] EDMS Patsy Arzate [email or web address] Mercy Caballero RN RN vc1 Zen Kowalski MD MD sp4 Zach Coleman RN RN ay
--- NOTE | 2024-10-19 03:16 | EDPHYS ---
Physician Documentation [facility] Name: Marie Gann Age: 24 yrs Sex: Female : 2000 Arrival Date: 10/18/2024 Time: 23:06 Bed 14 Private MD: ED Physician Zen Kowalski HPI: 10/18 23:18 This 24 yrs old Female presents to ER via Unassigned with complaints of Low sp4 Back Pain, Abdominal Pain, Near Syncope. 10/20 01:22 24-year-old female presents with acute onset of lower back pain, lower abdominal pelvic sp4 pain, and near syncopal episode.. 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 - Infectious Disease History:: Denies. - Social history:: Smoking status: Patient denies any tobacco usage or history of. - Family history:: not pertinent. ROS: 10/20 01:22 Constitutional: Negative for fever, chills, and weight loss, positive lower abdominal sp4 pain, positive pelvic pain, positive back pain, positive near syncopal episode. All other systems are negative, Exam: 01:22 Constitutional: This is a well developed, well nourished patient who is awake, alert, sp4 and in no acute distress. Head/Face: Normocephalic, atraumatic. Eyes: Pupils equal round and reactive to light, extra-ocular motions intact. Lids and lashes normal. Conjunctiva and sclera are not injected. Cornea within normal limits. Periorbital areas with no swelling, redness, or edema. ENT: Nares patent. No nasal discharge, no septal abnormalities noted. Tympanic membranes are normal and external auditory canals are clear. Oropharynx with no redness, swelling, or masses, exudates, or evidence of obstruction, uvula midline. Mucous membranes moist. Neck: Trachea midline, no thyromegaly or masses palpated, and no cervical lymphadenopathy. Supple, full range of motion without nuchal rigidity, or vertebral point tenderness. Chest/axilla: Normal chest wall appearance and motion. Nontender with no deformity. No lesions are appreciated. Cardiovascular: Regular rate and rhythm with a normal S1 and S2. No gallops, murmurs, or rubs. Normal PMI, no JVD. No pulse deficits. Respiratory: Lungs have equal breath sounds bilaterally, clear to auscultation and percussion. No rales, rhonchi or wheezes noted. No increased work of breathing, no retractions or nasal flaring. Abdomen/GI: Soft, with normal bowel sounds. No distension or tympany. No guarding or rebound. No evidence of tenderness throughout. Back: No spinal tenderness. No costovertebral tenderness. Skin: Warm, dry with normal turgor. Normal color with no rashes, no lesions, and no evidence of cellulitis. MS/ Extremity: Pulses equal, no cyanosis. Neurovascular intact. Full, normal range of motion. Neuro: Awake and alert, GCS 15, oriented to person, place, time, and situation. Cranial nerves II-XII grossly intact. Motor strength 5/5 in all extremities. Sensory grossly intact. Psych: Awake, alert, with orientation to person, place and time. Behavior, mood, and affect are within normal limits Vital Signs: 10/18 23:41 Weight 68.95 kg; Height 5 ft. 4 in. ; Pain 8/10; vc1 23:46 BP 118 / 93; Pulse 86; Resp 18; Temp 98.3; Pulse Ox 100% ; vc1 10/19 00:30 BP 111 / 81; Pulse 80; Resp 16; Pulse Ox 100% on R/A; ay 01:00 BP 117 / 87; Pulse 93; Resp 17; Pulse Ox 96% on R/A; ay 02:00 BP 119 / 92; Pulse 79; Resp 16; Pulse Ox 100% ; ay 03:00 BP 124 / 92; Pulse 73; Resp 14; Pulse Ox 99% on R/A; ay 10/18 23:41 Body Mass Index 26.09 (68.95 kg, 162.56 cm) vc1 10/18 23:41 Pain Scale: Adult vc1 Maurice Coma Score: 10/20 01:22 Eye Response: spontaneous(4). Motor Response: obeys commands(6). Verbal Response: sp4 oriented(5). Total: 15. MDM: 10/19 03:12 ED course: EXAM: CTAbdomen and Pelvis With Intravenous Contrast CLINICAL HISTORY: The sp4 patient is 24 years old and is Female; ABD PAIN TECHNIQUE: Axial computed tomography images of the abdomen and pelvis with intravenous contrast. Sagittal and coronal reformatted images were created and reviewed. This CT exam was performed using one or more of the following dose reduction techniques: automated exposure control, adjustment of the mA and/or kV according to patient size, and/or use of iterative reconstruction technique. COMPARISON: No relevant prior studies available. FINDINGS: Lung bases: Unremarkable. No mass. No consolidation. ABDOMEN: Liver: Unremarkable. No mass. Gallbladder and bile ducts: Unremarkable. No calcified stones. No ductal dilation. Pancreas: Unremarkable. No mass. No ductal dilation. Spleen: Unremarkable. No splenomegaly. Adrenals: Unremarkable. No mass. Kidneys and ureters: Unremarkable. No solid mass. No hydronephrosis. Stomach and bowel: Unremarkable. No obstruction. No mucosal thickening. PELVIS: Appendix: No findings to suggest acute appendicitis. Bladder: Unremarkable. Reproductive: Unremarkable as visualized. ABDOMEN and PELVIS: Intraperitoneal space: Unremarkable. No free air. No significant fluid collection. Bones/joints: No acute fracture. No dislocation. Soft tissues: Unremarkable. Vasculature: Unremarkable. No abdominal aortic aneurysm. Lymph nodes: Unremarkable. No enlarged lymph nodes. IMPRESSION: No acute finding in the abdomen/pelvis. Electronically signed by: Niles Rodriguez MD 10/19/2024 . 03:15 Medical Screening Exam initiated sp4 10/20 01:22 Differential diagnosis: arthritis, strain, fracture, contusion, Herniated disc UTI. sp4 Data reviewed: vital signs, nurses notes, lab test result(s), radiologic studies, CT scan. Consideration of Admission/Observation Escalation of care including admission/observation considered. ED course: Workup today is unremarkable. Patient stable for discharge home.. 10/18 23:18 Order name: CBC with Diff; Complete Time: 01:10 4 10/18 23:18 Order name: CMP; Complete Time: 01:10 sp4 10/18 23:18 Order name: Lipase; Complete Time: 01:10 4 10/18 23:18 Order name: Test, Urine; Complete Time: 01: sp4 10/18 23:18 Order name: Urinalysis w/ reflexes; Complete Time: 01:10 sp4 10/19 01:22 Order name: CT Abd/Pelvis - IV Contrast Only sp4 10/18 23:18 Order name: IV Saline Lock; Complete Time: 00:11 sp4 10/18 23:18 Order name: Labs collected and sent; Complete Time: 00:11 sp4 Administered Medications: 10/19 00:11 Drug: NS 0.9% IV 1000 ml IV at 1 bolus Per protocol; to be given as a bolus over 60 ay minutes Route: IV; Rate: 1 bolus; Site: right antecubital; 03:39 Follow up: IV Status: Completed infusion ay 02:05 Drug: Ondansetron IVP 4 mg IVP once; over 2 minutes Route: IVP; Site: right antecubital;ay 03:38 Follow up: Response: No adverse reaction ay 02:05 Drug: Ketorolac IVP 30 mg IVP once Route: IVP; Site: right antecubital; ay 03:38 Follow up: Response: No adverse reaction ay Disposition: 10/20 01:23 Chart complete. sp4 Disposition Summary: 10/19/24 03:15 Discharge Ordered Notes: Location: Home sp4 Problem: new sp4 Symptoms: have improved sp4 Condition: Stable sp4 Diagnosis - Acute pelvic pain, acute lower back pain, near syncopal episode sp4 Followup: sp4 - With: Private Physician - When: 7 - 10 days - Reason: Recheck today's complaints Discharge Instructions: - Discharge Summary Sheet sp4 - Pelvic Pain, Female, [id number] sp4 Forms: - Patient Portal Instructions sp4 Prescriptions: - naproxen 500 mg Oral tablet - take 1 tablet ORAL route every 12 hours PRN pain; 50 tablet; Refills: 0, sp4 Product Selection Permitted - methocarbamol 750 mg Oral tablet - take 2 tablets ORAL route every 8 hours for 10 days PRN back pain; 60 tablet; sp4 Refills: 0, Product Selection Permitted Signatures: Dispatcher [employer] Mercy Torres RN RN Zen Rapp MD MD sp4 Zach Coleman, RN RN ay Corrections: (The following items were deleted from the chart) 10/18 23:19 23:19 CBC+H.LAB.BRZ ordered. EDMS EDMS : 23:19 COMPREHENSIVE METABOLIC PANEL+C.LAB.BRZ ordered. EDMS EDMS : 23:19 LIPASE+C.LAB.BRZ ordered. EDMS EDMS : 23:19 Test, Urine+UC.LAB.BRZ ordered. EDMS EDMS : 23:19 Urinalysis+U.LAB.BRZ ordered. EDMS EDMS
[2024-10-19 03:44] VITALS: TEMP 98.3
[2024-10-19 03:49] VITALS: BP 124/92; O2SAT 99
== END 2024-10-19 03:39 | disposition home or self-care (01) ==
LOC: ER 23:06
DX: R10.2 Pelvic and perineal pain (principal); M54.50 Low back pain, unspecified; R55 Syncope and collapse
CPT/HCPCS: 96361; 85025; 81001; 36415; 81025; 83690; 80053; 74177; 96375; 96374; 99284; Q9967; J2405; J7030